=== PATIENT | female | born 1995 | race Caucasian/White ===

== ENCOUNTER 2023-11-06 13:01 | Outpatient (OUT) | payer OTHER, SELFPAY ==
--- NOTE | 2023-11-06 13:07 | US_ITS ---
[address] [address] Patient Name: ADONAY GENAO MRN: [id number] date: 1995 Sex: F Assigned Patient Location: US Current Patient Location: Accession/Order Number: [id number] Exam Date: 11/06/2023 13:08 Report Date: 11/07/2023 07:38 At the request of: EARL NDIAYE Procedure: US OB transvaginal EXAMINATION: US OB transvaginal HISTORY: MISSED MENSES COMPARISON: No relevant comparison available. FINDINGS: Chang intrauterine gestation Gestational sac: 3.66 cm, weeks 6 days CRL: 2.06 cm, 8 weeks 5 days Yolk sac: 4.1 mm Heart rate: 169 bpm Cervix: Closed, 3.6 cm The ovaries are normal. The uterus is normal, anteverted, anteflexed Clinical age: 9 weeks 1 day Clinical RICH: 06/09/2024 Ultrasound age: 8 weeks 5 days Ultrasound RICH: 06/12/2024 US/US OB transvaginal IMPRESSION: Viable chang intrauterine gestation measuring 8 weeks 5 days Electronically authenticated by: MALIKA WILKINS Date: 11/07/2023 07:38
== END 2023-11-06 13:02 | disposition home or self-care (01) ==
PROVIDERS: Visit Provider Obstetrics & Gynecology
DX: Z34.91 Encounter for supervision of normal pregnancy, unspecified, first trimester (principal); Z3A.08 8 weeks gestation of pregnancy; N92.6 Irregular menstruation, unspecified
CPT/HCPCS: 76817

== ENCOUNTER 2023-11-12 13:10 | Outpatient (OUT) | payer OTHER, SELFPAY ==
[2023-11-12 14:04] LABS: Estimated Average Glucose 114 mg/dL; Glycohemoglobin A1C 5.6 % (4.5-6.2)
[2023-11-12 14:11] LABS: Thyroid Stimulating Hormone <0.007 uIU/mL (0.358-3.740)
[2023-11-12 14:22] LABS: Basophils Percent Auto 0.2 % (0.2-2.0); Eosinophils Absolute Auto 0.1 10^3/uL (0.0-0.7); Eosinophils Percent Auto 0.6 % (0.9-7.0); Hematocrit 36.2 % (36.0-48.0); Hemoglobin 12.2 g/dL (12.0-16.0); Immature Granulocytes Abs Auto 0.04 10^3/uL (0.00-0.03); Immature Granulocytes Pct Auto 0.3 % (0.0-0.5); Lymphocytes Absolute Auto 2.1 10^3/uL (1.2-3.8); Lymphocytes Percent Auto 17.3 % (20.5-60.0); Mean Corpuscular HGB Conc 33.7 g/dL (29.9-35.2); Mean Corpuscular Hemoglobin 28.6 pg (26.7-34.0); Mean Platelet Volume 10.1 fL (9.5-13.5); Monocytes Absolute Auto 0.9 10^3/uL (0.3-0.8); Monocytes Percent Auto 7.2 % (1.7-12.0); Neutrophils Percent Auto 74.4 % (43.0-75.0); Platelet Count 369 10^3/uL (150-450); Red Blood Count 4.26 10^6/uL (4.20-5.40); Red Cell Distribution Width 12.3 % (11.0-15.0); White Blood Count 12.2 10^3/uL (4.0-11.0)
[2023-11-13 06:09] LABS: HBsAg Screen Negative (Negative); HCV Ab Non Reactive (Non Reactive); HIV Ab/p24 Ag Screen Non Reactive (Non Reactive); Rubella Antibodies, IgG 1.42 index (Immune >0.99)
[2023-11-13 11:10] LABS: Rapid Plasma Reagin, Quant Non Reactive titer (NonRea<1:1)
== END 2023-11-12 13:11 | disposition home or self-care (01) ==
LOC: LAB 13:12
PROVIDERS: Visit Provider Obstetrics & Gynecology
DX: Z36.0 Encounter for antenatal screening for chromosomal anomalies (principal); N92.6 Irregular menstruation, unspecified
CPT/HCPCS: 36415; 83036; 84443; 85025; 86592; 86762; 86803; 86850; 86900; 86901; 87086; 87340; 87389

== ENCOUNTER 2023-11-18 12:02 | Outpatient (OUT) | payer OTHER, SELFPAY ==
[2023-11-18 12:52] LABS: Thyroid Stimulating Hormone <0.007 uIU/mL (0.358-3.740)
[2023-11-18 13:12] LABS: Free T4 1.03 ng/dL (0.76-1.46)
== END 2023-11-18 12:03 | disposition home or self-care (01) ==
LOC: LAB 12:04
PROVIDERS: Visit Provider Obstetrics & Gynecology
DX: R79.89 Other specified abnormal findings of blood chemistry (principal)
CPT/HCPCS: 36415; 84439; 84443

== ENCOUNTER 2023-12-17 08:47 | Outpatient (OUT) | payer OTHER, SELFPAY ==
--- OUTSIDE RECORDS SUMMARY | 2023-12-17 08:54 | XMS_ITS | CCD ---
Author Name Unknown Address [address] [place] [address] Organization [facility] Care Team Providers Care Marketing Analyst Name Role Phone Shanna Daniel Primary Care Physician [phone] Carlie Leon Unavailable Unavailable Corbin Henley Primary Care Physician [phone] Devin Pereira Admitting Unavailable Kelli, Devin Collier Attending Unavailable Kelli, Devin Collier Admitting Unavailable Kelli, Devin Collier Attending Unavailable Kelli, Devin Collier Attending Unavailable Kelli, Devin Collier Admitting Unavailable Kelli, Devin Collier Admitting Unavailable Kelli, Devin Collier Attending Unavailable Kelli, Devin Collier Admitting Unavailable Kelli, Devin Collier Attending Unavailable Orzech, Kaelyn Brooks Admitting Unavailable Orzech, Kaelyn Brooks Referring Unavailable Orzech, Kaelyn Brooks Attending Unavailable Orzech, Kaelyn X Admitting Unavailable Orzech, Kaelyn X Referring Unavailable Orzech, Kaelyn Brooks Attending Unavailable Kelli, Devin Collier Admitting Unavailable Kelli, Devin Collier Attending Unavailable Orzech, Kaelyn Brooks Attending Unavailable ZELDAEARL BARAJAS Attending Unavailable Medications Current Medications Medication Drug Class(es) Dates Sig (Normalized) Sig (Original) cimetidine 200 mg oral tablet (6 sources) Histamine-2 Receptor Antagonist Start: 05-28-2022 take 200 mg by mouth four times daily cimetidine 200 mg, Oral, QID, Refills(s) 0 Start Date: 05/28/22 Status: Ordered FLUoxetine 20 mg oral capsule (6 sources) Serotonin Reuptake Inhibitor Start: 05-28-2022 Prozac 20 mg Cap Refills(s) 0 Start Date: 05/28/22 Status: Ordered ibuprofen 600 mg oral tablet (5 sources) Nonsteroidal Anti-inflammatory Drug Start: 05-31-2022 take 1 tablet by mouth every six hours ibuprofen 600 mg Tab 600 mg = 1 tab(s), Oral, q6hr, # 15 tab(s), Refills(s) 0, Pharmacy: [facility], 154.9, cm, 05/29/22 7:54:00 EDT, Height/Length Dosing, 84.5, kg, 05/29/22 7:54:00 EDT, Weight Dosing Start Date: 05/31/22 Status: Ordered Multivitamins with Vitamin B Complex, Vitamin C, Minerals and L-Methylfolate oral capsule (6 sources) Start: 05-28-2022 Multivitamins with Vitamin B Complex, Vitamin C, Minerals and L-Methylfolate oral capsule 1 cap(s), Oral, Daily, 30 cap(s), Refill(s) 0 Start Date: 05/28/22 Status: Ordered Completed/Discontinued Medications Medication Drug Class(es) Dates Sig (Normalized) Sig (Original) naproxen 500 mg oral tablet (2 sources) Nonsteroidal Anti-inflammatory Drug Start: 04-25-2020 take 1 tablet by mouth twice daily naproxen 500 mg Tab 500 mg = 1 tab(s), Oral, BID, Take one tab by mouth two times a day, # 14 tab(s), Refills(s) 0, Pharmacy: [facility], 155, cm, 04/25/20 17:23:00 EDT, Height/Length Measured, 56, kg, 04/25/20 17:23:00 EDT, Weight Measured Start Date: 04/25/20 Status: Ordered Problems Active Problems Problem Classification Problem Date Documented Date Episodic/Chronic Anxiety disorders (5 sources) Anxiety 05-29-2022 Chronic Mood disorders (5 sources) Depressive disorder 05-29-2022 Chronic Other and delivery including normal (1 source) Delivery normal; Translations: [Encounter for full-term uncomplicated delivery] Onset: 05-31-2022 Episodic Past or Other Problems Problem Classification Problem Date Documented Da te Episodic/Chronic Fetopelvic disproportion; obstruction (2 sources) Obstructed labor due to shoulder dystocia; Translations: [Obstructed labor due to shoulder dystocia] Onset: 05-29-2022 Episodic Unclassified (7 sources) Onset: 08-25-2021 Resolved: 05-30-2022 02-26-2022 Results Test Name Value Interpretation Reference Range Facility Coding Summary.on 12-24-2022 Coding Summary. [id number] Gh0bWw+PGhlYWQ+PE1FV GEvH81puBIfuS4OL4kQE V6IGWCRDCJEGG2DHI6tz TU1THrvT6OckqAe OfjljQQxBO57XUn4HKA9 sVkdIEescO0hxJZbM8h8 YfHdYI39hH53BVpwKCOo TpS7EzFolkawpEDx F8qwYqDrpYHwOwp+PHRh YmxlIHdpZHRoPScxMDAl XbQdgXvjOJ1mPa9jNITp LWNvbGxhcHNlOiBj x9caSAToSLtiXA2nxXgi P5SojIX7ACUks3n5Dl10 dHI+YRImIHI8mPncGWuz g133NhDlz7fcVKE2 aWPdRNdlCBB8M53qv7Z0 HHLqERIwSER2qAU0xO1h yWmlrrfxP5IfjZMkSqO5 XRE5gSVqiX8orVwx rvelmT9kRps+N54HYX6G WHGBSS1TFac7M8GjIorg dHI+PU39XRWjVL89oYPo iNSuy0armNx1MuQk TZRxAQE1xIxbSLclw3Lv JTEcU13piGGkr0R3RZGv qJiqaPVrTqIedBO0rV1s XHcbfizaw9lsqhhm Gkbot6fcwc19zJ38D07g SMhhOABcKTL4PZNyEENb rHqitx9eqE7kMz0+IDxj i3gzp3zkgHt1AjBw ZVWujkHteItqSHB6l3Nw Kj92F5NbnTijr7CwWgq9 gp37gWVoi5H0mNG7YNvl YBJmlG6mKJmvRaM0 WYBxXnMvwW83sHPvMJcc Fh6ucKvfhStpIF3iTSUf jgepVHEfaF8cGRTeqTWf kZvbZV1aSIRvinal u791UjBtTWA6NSDubKDe I7KooG2hVrDjTQTlFFHs I0UydUYuPInaA293LXjx KlQ7HXZlqdRfT6Lr JKUpxWsrMvS3m6R5Sb7M u2RjlfvjGMM2ZCqnESRp YqLgAtLhXyX4D1CyYxf7 AIHecYykTD2kN0Nq ZCPslqmgeydkeWF3ETCg HOSkdE02uURlJRhhDr0l r2M3k649UUCgLPCwfN44 Sy4piOiuWDRhsNAH iU3zctmmp0velwoeSyQv TLKrWQy8DYv6JWOojHrp HgXrNNG6RcA4WEL1cMRb vQ3zkBsgjwpjwU2r Oyc+B36tkF0tSMM8TZZ5 ohxdDSRxqcNeLV28IB48 N3MwZynbeOEulKQ+PGRp vlWadPwuZI0lWvHz f7xeq0BnJCqcL3IzTKOu RVbcUel2RJMlEVG4gSD2 aA5hLFBjTWmbe4E1sUU5 J6NwzxAuin3os3bt OHOpLXueP30swKEmf6D3 BPHxyLJ6FTGeeBuhNrEm aJ36Kxe+CRKnwHpdc9Ut Qffex1ylo2vjwNa8 IjMwJSIgdmFsaWduPSJ0 b5LlJx97B07uWRqjDWFz ONGxUDGcTEFivFqbqa3d mC7eHp5+PGNvbCB3 vID8wQ5wKRIvEtD5GEst E001HfOwqYOiJiwap9my f7mspOy0JuBqQXUhiqZo gTouGRH0u3XaOj47 Z26bPOyuODEdARIcJGOz MUEfdBbphm4oeL7gGb1+ WM7pw6nvgj99oF43hZB+ PULsQMA8vCyzTXrq PQMubA7fMVbsGyU4AXLm WbHkqZ18sWPeOMqfKp9g nIyjwJfoMD3vCGRntuhf g309GqWar0pwNWTj yYRiQYqcHJO1A78cc0G7 WSEtZAXlZRM3zSA0tV4j bGlnbjogbGVmdDsgdmVy nXrjYOceISduY903 IHRvcDsnPlBhdGllbnQg NkExRBm8S4KdKxu4MFYs nGggFO5btDBxEXhnKk0c oJjcgPxcOF2tQEIo evypx434DkZbt7juQKMa sNJmEKklKDM4Y99py3Q4 FFFdKUTdRYW1rXZ5hG2e bGlnbjogbGVmdDsg pmQumDdyFAtlTYlsI206 IHRvcDsnPkJpcnRoIERh yYD0QV34YR53dLQnv0I0 lVK2H6StFDOyohls iycyqWL6MSOcTTAwoC51 Ed8obMjrXu8vDMMoZBJ3 DLAcpVWkY7LddD7tIkEr JZGoCTJeF2WslYLb RKmiU014PZxqHeU8RLKw xgSuY1WzZVJnrJehAxT2 c1U2Us1TL1A0XU93VP22 hCAud3Z1fBT9R2Hj HFJwqpkexbnstQA7QFRc UYIjlR33If4kkWmsSu3j OFJpSJO9KUYffKMxM0By wM9nFdPtMZUdFWTw U2VwaKOeVBqbF472ALwj ImT1VGAfviWrJ2UuCUZl bHgfUxL4w3M5Tf7PDZo0 JG02QI74cZXei6R6 wGA2I8NoBIIezrlookvk aZL5MDNtUDLkeU13Fw3l pGyjVw3jZXUpMQP4IQCx iJAoP1EdzN5eIsCl VZDfALKgN9CfgFJdQRgn Z369DKtgSgJ1SSSkqiZy Z5BdYNDnlKfrTaG5r4W8 Oi5XFJSyOE63ZWN6 vFF7YI69DZ83U6LgLvlb dGFibGU+PHRhYmxlIHdp ZHRoPScxMDAlJyBzdHls NL3zKi2vNWLpOPWj gNrjqNGeNoJsg9bkZOKm ETznVK5pyOgsI9JcyXN4 HBBwi3d4Iy87E45tG3Wv dXA+PSJjvVW9uBL9 rS1gBwEwRgX6KQzjG962 YeZvsQAyCjnpo2dmz8bm dLx9ObD5RHBevtUxsErj AOE4g8YySr35B98n IHdpZHRoPSIxNSUiIHZh hSxilc8brD6fRa2+PGNv lXJ5tLU0hV3yUtSvTzQ0 HJfiZ560BgOwbEFl Qvuor7pzq6eupNg8YpCh NHQwpyHhzKsxTNB4y0Xm Dc20N3RedTbpz9YnLnz7 yq12bURco7D4bEM3 P6GbCFGrfkooeKBjsOxp BZ9vNNDhipaxKCMvpF6f NPNvI4d9TgXoXlZ1HHar U7HanmC2OPMprLLc BEtyCXY9Y93kq0D1RIKi FUKoCEN4xQB1xM0qxHnp bjogbGVmdDsgdmVydGlj GQdeWOasQ943CCNi wRcmNRQnpU8xYQSxsSAy vXfoRY7bYRAvyeopMdMO Nu2LAcmuI8EJXFMYLBUv TTwvdGQ+PHRkIHN0 cTuuREkvNSHiwZ6bRJEt N5r3LzIbGzS8ZDwkO2Pw CYGofzvxYa85jC2sZmLf JzS5CTnvZ4PsxgM5 MGLwwEQcYRaaMJL1R14m d8O3UXVlUQBlNQR1kLU5 zP9udZtklltjpFYgoSfe dmVydGljYWwtYWxp E673PZNslDlcTkRqNpC6 SaF3XUh3O3PsMhd7KSEh mBeaRF8skLWcFTbhVc4t jKasfOadJH7nOCXt rvpfFLDppU9aRQCokNCx zZvuIJ9rJZLzuutjz475 YtWoGQJ9VDAwcDEgU7Rw jR0bQwQzPGKwVYXa Z1DwePBmFJleG178EWpa ScN6YFNpknUpK8McPZXr xUaqGaM2p6J8El6sFEBG ZWFyczwvdGQ+PHRk XNR0jUiaFUvnLUDouJ7f XUYfY5p2HpSoVeV7VXvo O8RqVSPzpfiwRk71nJ0l XvOpPzB6SJbpY7Tl eoK7KWLjvZXwNJmrVTV1 V14en2T8YSYjHPXhRSK3 xBO7wC3qwUxcqjwtnCZb dDsgdmVydGljYWwt FSzpO224OSTmpIaqKxMv bWFsZTwvdGQ+PHRkIHN0 rQxhCFmpSKUnkR7yGXKa L4u8UbKlEyH1FIyz S4UvXHCztbisVr83hY3j FsHtUnW3DVssX5QihfD0 NIZwgRCgJNzyFAK9Q91s q8A4IEMmPFArQCV9 vCS8tG0yxPjzzzylwZVf dDsgdmVydGljYWwtYWxp N277HAPhrQcfEc55oLGo fOkfhcX2S5DpQlnz dHI+AJ31ESTaII63aHUd gZTji1qwwYx6EvNkFRBc ZAB9fJekPTduh6EwJHNe K14brGVxk1M1XQTj oWuyiOCfMsCukRW7nQ0b KXxgztfea0vcdtwyGbgo k5aopf42aG22Y09eMZeu ZHRoPSIzMCUiIHZh gBwblr5htA8xNw2+PGNv pRD4gDM2pQ5pEkTiEfI7 UXnmP605BkRenIVyVxhj r7isf1ikaTj1YkRg DGQwpdKfjZdbQAD7l1Bf Ik95I35hFTikDGLqKYQc EWVyBXYixYajnh1mpL8m Ii8+FO1bq4wmdt47 pJ18bVY+UFOqTXZ6qBbz GOswGFEdfB7pCClnPkG8 MNGfBwSmzU78oXBnSOge Gy6sbXuecUqnPE6g GENzbxqfi363AmIyv4cy CFAmpGLtDMkfTDV2P73y p7M8IXGgGTAvGJT4aUG2 zF2jxCqfpiqugMKv dDsgdmVydGljYWwtYWxp B303UCVdaXhlFgFovPBs Z1rnohYOHN9uPhqajCE+ XALuGXP8xVlnFVka SDWybK5gLCQwT3y3EaMl JaX6DYjoZ6JifzV3ZNHj dHWpXBCdhZZVoZ8rialt q3hhacihZqXtBFWn GEz3YIm5RBBctQodZaWg HET4PfD0UDW1gDEewK5b kCuiswlonU7kXbe+RklO OjwvdGQ+PHRkIHN0 cLniDHuyBCYafH3mBGJy E9g6AuXmOpY2TXviY6Jk ggY8SXMqfXKtFAMgtSMU bZ3zllbrs7wgfzof HtWoBMJvWXi2LMc6UXAy jBglMeSpRMW1LmM2WXZ6 qPUduW4ieMlvbyionQ1w Oyc+TVJOOjwvdGQ+ CCIfUBG0aOxrNXxbXOGc qY7sJYDlL7x6CcQoCbJ8 QZamV1BqmsF2RGMbzDLb WTIirEJMzQ1rwxcj y6zytfwsPrUbAUCvQBr1 GZm4ACDavRihPiFwIKT6 NpU1VDL4hZEzmL4gmJbz mlnwzN2pNjw+UGF5 KCS6GJ39ZA53Q3RqNjny dGFibGU+PHRhYmxlIHdp ZHRoPScxMDAlJyBzdHls EN1nSx0tKQXjOCVl bGxh (more content not included)... Normal [facility] Consent for Treatmenton 11-25 Consent for Treatment [id number] #1.00CD:127 [facility] US Abdomen, Limitedon 2022 US Abdomen, Limited Exam Date/Time: 12/18/2022 08:13 EST Reason for Exam: R10.11;Abdominal pain Report IMPRESSION: NEGATIVE RIGHT UPPER QUADRANT ULTRASOUND WITHOUT EVIDENCE OF CHOLELITHIASIS. EXAM: Limited abdominal ultrasound INDICATION:Right upper quadrant pain Abdominal pain, R10.11 TECHNIQUE: Juárez-scale evaluation of the right upper quadrant was performed. COMPARISON: None available. FINDINGS: Liver: Hepatic echogenicity is within normal limits without intrahepatic biliary dilatation. There are no focal hepatic lesions.. Gallbladder: The gallbladder was normally distended without stones, sludge, or wall thickening. The common duct measures up to 5 mm. Pancreas: The pancreas was partially visualized, and the visualized portion was within normal limits. FINAL REPORT Dictated: 12/18/2022 10:44 am Daniel Meier MD Signed (Electronic Signature): 12/18/2022 10:44 am Signed by: Daniel Meier MD Transcribed by: STEPHANIE Technologist: HW [facility] Consent for Treatmenton 11-24 Consent for Treatment [id number] #1.00CD:127 [facility] Family Medicine Office/Clini c Noteon 11-29-2022 Family Medicine Office/Clinic Note Chief Complaint EST right side pain, nausea, vomiting HPI Staff Pt 26 yo female presents with sharp right side pain, nausea, vomiting Onset- yesterday Pain- 4-5/10 Radiates- from just below ribs to right side Characteristics- sharp pain constant for last 2 hrs, bloated Pt is having nausea, tolerating liquids vomiting - 1 episode yesterday Last BM today - loose, typical over the last 3 days LMP - currently nursing 6 month old aggravating factors - none relieving factors - none no fevers Treatment- gas-x History of Present Illness I have reviewed and verified the staff HPI to be accurate for this encounter. Review of Systems PHQ Score Initial Depression Screen Score: 0 Physical Exam Vitals & Measurements T: 36.6 ?C(Oral) HR: 99(Peripheral) BP: 116/76 SpO2: 98% HT: 61 in HT: 154.9 cm WT: 83.5 kg WT: 183.7 lb BMI: 34.8 General: _Pleasant, obese female in no acute distress. Mouth: _Mucous membranes moist, tongue normal. Neck: no adenopathy Lungs: clear to auscultation throughout, no wheezing, no rales. No respiratory distress Cardio: regular rate and rhythm, no murmur Abdomen: Patient is able to lay flat. Abdomen is soft, round, nondistended. Bowel sounds are normoactive x4 quadrants. There is mild tenderness to palpation of the right upper quadrant. No guarding, grimacing, or rebound tenderness. Mental Status: Alert and oriented x3. Normal mood and affect Assessment/Plan 1. Right upper quadrant pain (R10.11: Right upper quadrant pain) Overall, patient is stable on exam. No evidence of acute intra-abdominal disease process at this time. Discussed with patient that history and exam may be consistent with gallbladder pain. However, given stable condition, recommend monitoring and following up outpatient. May benefit from GI referral in the future.. Will order ultrasound of the right upper quadrant, will call with results. Discussed proper diet, avoiding fatty or spicy foods. May use Tylenol/ibuprofen for discomfort. Seek medical attention immediately for any severe abdominal pain, inability to tolerate oral liquids, fevers. Patient verbalized understanding treatment plan. Ordered: US Abdomen, Limited 2. BMI 34.0-34.9,adult (Z68.34: Body mass index [BMI] 34.0-34.9, adult) The standard range for ages 18 and older is >=18.5 and < 25 kg/m2. Your BMI today was above this range, this falls in the overweight to obese category and there are medical benefits to weight loss. We can offer counselling, referral, and/or medical support in addressing this problem. Your BMI and weight management will be followed at subsequent visits. Ordered: Body Mass Index (BMI) documented 3008F Follow-up With When Contact Information Shanna Daniel DO C, [address], [address] [place] [address]- Additional Instructions: Patient Education Cholecystitis BMI for Adults Problem List/Past Medical History Ongoing No qualifying data Historical Anxiety Depression Medications cimetidine, 200 mg, Oral, QID, Not taking ibuprofen 600 mg Tab, 600 mg= 1 tab(s), Oral, q6hr, Not taking Multivitamins with Vitamin B Complex, Vitamin C, Minerals and L-Methylfolate oral capsule, 1 cap(s), Oral, Daily, Not taking Prozac 20 mg Cap, Not taking Allergies No Known Allergies Social History Alcohol - Denies Alcohol Use, 04/25/2020 Employment/School Employed, Work/School description: [employer]. Highest education level: University degree(s)., 05/29/2022 Home/Environment Lives with Significant other. Living situation: Home/Independent. Alcohol abuse in household: No. Substance abuse in household: No. Smoker in household: No. Feels unsafe at home: No. Family/Friends available for support: Yes. Concern for family members at home: No. Major illness in household: No., 05/29/2022 Substance Abuse - Denies Substance Abuse, 04/25/2020 Tobacco - Denies Tobacco Use, 04/25/2020 Never (less than 100 in lifetime) Tobacco Use:. Never Smokeless Tobacco Use:., 11/28/2022 Family History Family history is negative Immunizations Vaccine Date Status Comments influenza virus vaccine, inactivated - Not Given Postpone due to refusal SARS-CoV-2 mRNA (tozinameran 5y-11y) vac - Not Given Postpone due to refusal hepatitis A pediatric vaccine 01/18/2013 Recorded diphtheria/pertussis , acel/tetanus adult 09/12/2010 Recorded meningococcal conjugate vaccine 09/12/2010 Recorded poliovirus vaccine, inactivated 02/23/2003 Recorded measles/mumps/rubell a virus vaccine 02/23/2003 Recorded DTaP, unspecified formulation 02/23/2003 Recorded hepatitis B pediatric vaccine 06/27/1999 Recorded Date correction Normal [facility] Comment on above: Result Comment: Elec tronically Signed By: TAISHA Rodriguez APRN, Kaelyn Brooks\.suresh\Date and Time Signed: 11/29/22 14:43 EST Patient Educationon 11-29-19 Patient Education Gastroenterology Cholecystitis Cholecystitis is inflammation of the gallbladder. It is often called a gallbladder attack. The gallbladder is a pear-shaped organ that lies beneath the liver on the right side of the body. The gallbladder stores bile, which is a fluid that helps the body digest fats. If bile builds up in your gallbladder, your gallbladder becomes inflamed. This condition may occur suddenly. Cholecystitis is a serious condition and requires treatment. What are the causes? The most common cause of this condition is gallstones. Gallstones can block the tube (duct) that carries bile out of your gallbladder. This causes bile to build up. Other causes include: ? Damage to the gallbladder due to a decrease in blood flow. ? Infections in the bile ducts. ? Scars or kinks in the bile ducts. ? Tumors in the liver, pancreas, or gallbladder. What increases the risk? You are more likely to develop this condition if: ? You have sickle cell disease. ? You take control pills or use estrogen. ? You have alcoholic liver disease. ? You have liver cirrhosis. ? You have your nutrition delivered through a vein (parenteral nutrition). ? You are critically ill. ? You do not eat or drink for a long time. This is also called fasting. ? You are obese. ? You lose weight too fast. ? You are . ? You have high levels of fat (triglycerides) in the blood. ? You have pancreatitis. What are the signs or symptoms? Symptoms of this condition include: ? Pain in the abdomen, especially in the upper right area of the abdomen. ? Tenderness or bloating in the abdomen. ? Nausea. ? Vomiting. ? Fever. ? Chills. How is this diagnosed? This condition is diagnosed with a medical history and physical exam. You may also have other tests, including: ? Imaging tests, such as: ? An ultrasound of the gallbladder. ? A CT scan of the abdomen. ? A gallbladder nuclear scan (HIDA scan). This scan allows your health care provider to see the bile moving from your liver to your gallbladder and on to your small intestine. ? MRI. ? Blood tests, such as: ? A complete blood count. The white blood cell count may be higher than normal. ? Liver function tests. Certain types of gallstones cause some results to be higher than normal. How is this treated? Treatment may include: ? Surgery to remove your gallbladder (cholecystectomy). ? Antibiotic medicine, usually through an IV. ? Fasting for a certain amount of time. ? Giving IV fluids. ? Medicine to treat pain or vomiting. Follow these instructions at home: ? If you had surgery, follow instructions from your health care provider about home care after the procedure. Medicines ? Take dayb-ame-cyzoqnr and prescription medicines only as told by your health care provider. ? If you were prescribed an antibiotic medicine, take it as told by your health care provider. Do not stop taking the antibiotic even if you start to feel better. General instructions ? Follow instructions from your health care provider about what to eat or drink. When you are allowed to eat, avoid eating or drinking anything that triggers your symptoms. ? Do not lift anything that is heavier than 10 lb (4.5 kg), or the limit that you are told, until your health care provider says that it is safe. ? Do not use any products that contain nicotine or tobacco, such as cigarettes and e-cigarettes. If you need help quitting, ask your health care provider. ? Keep all follow-up visits as told by your health care provider. This is important. Contact a health care provider if: ? Your pain is not controlled with medicine. ? You have a fever. Get help right away if: ? Your pain moves to another part of your abdomen or to your back. ? You continue to have symptoms or you develop new symptoms even with treatment. Summary ? Cholecystitis is inflammation of the gallbladder. ? The most common cause of this condition is gallstones. Gallstones can block the tube (duct) that carries bile out of your gallbladder. ? Common symptoms are pain in the abdomen, nausea, vomiting, fever, and chills. ? This condition is treated with surgery to remove the gallbladder, medicines, fasting, and IV fluids. ? Follow your health care provider's instructions for eating and drinking. Avoid eating anything that triggers your symptoms. This information is not intended to replace advice given to you by your health care provider. Make sure you discuss any questions you have with your health care provider. Document Released: 11/10/2006 Document Revised: 03/19/2019 Document Reviewed: 03/19/2019 [employer] Patient Education ? 2019 [employer]. Nutrition BMI for Adults Body mass index (BMI) is a number that is calculated from a person's weight and height. BMI may help to estimate how (more content not included)... Normal [facility] Coding Summary.on 07-17-2022 Coding Summary. [id number] Gh0bWw+PGhlYWQ+PE1FV OEeB02bkABktC5EV4uNJ T7UDMURJODPLJ7UDT0vi AQ9MRluQ8GdgjIc JiatrZUcTY22UNx5ZKZ4 aQvjPCuvwZ0gvTKsF0t3 RoRvZP80xZ45TTkyYRKz PwJ8CrTxkzbhfGZw E7rwMjKooOYaCnp+PHRh YmxlIHdpZHRoPScxMDAl WaWaxOkaAZ6iEm0xCCDu LWNvbGxhcHNlOiBj v8gpHZMuBKctPQ4tvVfh W9CwcFC9XKZeu8a4Xw77 dHI+DTRhXFF4kRshCJob t080KpOps5qkBXX6 dZMfOPkoNWA8V59br3W9 VUGuFTBsRMA7mMO9oR6x xAggxuetL5GuyRJdVlH1 GBQ1uENaxK5tfJxa uxutgC3pTve+G59QDN5Y PBPBEQ9ATlr1B8LrTzyh dHI+UN11VEGpKK51wBOh nPFhp9sxcSt0BqLp FRMjECU0sPtfZDbkf9Vv FJPuT88wgZSif0O2UANc bGbcnQZuNnKbjWY4wQ9e NYpbgxaid2itvroi Zhlbv6iygu78pZ94U91j EAheHSWaZXK3ZARtVHTd eAfibi0ysC8pPz2+IDxj t9bzq9ilpDo6ZtBb WSXlyqNkiJpjEDB4l6Xr Yg05T8XjaYzfu1UhLod1 wd41oJKil0V2zBE6SUrr QJXdhX8eYUnkEaJ3 EOVeTvDgwE09kWTxKBse Wi1nmXrgbThyUT5tRMAj vdecALQdhL8kKXRjiWLj wYwgMX5mWRCxsvgu b573JnMbVND3WOHymXUq R9JxlX9eUlPjULVvVORe Z5QgvZZkKXboN060COxx DeA3KIZbakRzG4Lb XMMrqVmfZiQ7i7Z8Be7Q j7VdyacaRSL5SNerSVN2 YyH8YxIvSuX6Y3HtBvn0 VVFvxEfuRF0vJ0Re NWBjfmwakolabIS6BJWc PATewC17kFNgLLeoEx7z x7A6p509SMKnDGKctR18 Yt6oxBqxOKNorGXP zZ7grmgph5uhwemcWsOb JMTeESx7YVu8DVPihSlf ZyRwMXH5PhD3HKO4xJZb rL2jdNkdqusvtY0a Oyc+K64dlF1oXCG9DXL2 vrshLHSdxtAiKX11SO66 O3ImMitcfGXosNT+PGRp uzSlmStnMR6xWtEb o7twp3KpZBfhD7KdWIRr ECucGst9EZHaIPF1qUQ3 xN1kXEYiTNgpu8Q7zJT5 F1FbfuJfru3am9fe MIYmZQnpP10wpSSkc5Y5 ITAdbVF6UJZrdEzeYxMm kH73Lak+WWQwgSnhz4Dq Pkxfk4nhy4zssMq4 IjMwJSIgdmFsaWduPSJ0 i1ExRm40D83aGJpyPGCf ZRNbPLIeGVJxeIcosc3i cR8hFv1+PGNvbCB3 xRJ0oM7aPZMaPoJ0WLor R647MiGclMLtKiauy2nt c0ayzJw4GsZbOPYondWq fWkdRKT6d0MgNb20 Q28tWOgrZVQaWLZzGBCx UIFqiXyoim1waP2sKy4+ QE3nr1usib93tG62cNP+ ACCcGKV1zLswRHzj BEWseV0yJOksLdE6AWMd JgJqqN67uMTrDVogLj8y hOolcAasUT0rGZJaevto w580PjPcf7gkLATo cHJpKAaeUYW0I81mp2B2 LTKaIFGrHGY5oJF7sL8b bGlnbjogbGVmdDsgdmVy jOurXFwoDMtgH471 IHRvcDsnPlBhdGllbnQg ChAkCHh3K3TqDea9WGDt jCmpMT8yuDEaHVlsWj0w sMkjcSfsEM5pUITf mioqh485XjVjn6qzDVBm lFReQYrbSAJ5K44rx7R4 UQTwJOWxAPL4hYW7gK4b bGlnbjogbGVmdDsg slCkxYcoEMjxMMzhS235 IHRvcDsnPkJpcnRoIERh pCW8CO57CA00lCRep3E2 rDS8S8QcDCPyopkd qdlyzPR6PMXuOSDmwV25 Fi8hcIehUg9bRSIjANS2 FBHhbFFnH6QseK0rMhTy ZDDdUDEsH1EzhICu HRhlC054MTazTsE0ZMAv nyOhZ8ZvREQrdQlzGlB3 t7G6Fu0JG9X6SA72XS00 lNKji5G3rRY0K6Ml GPJvgvqwcpsjiYJ2KJMf DVStvN09Xn2awYpsVn6l DBEiIJV2RBIsjWAdZ3Ap gJ9iNpHpLUCeSWFp E3PydQDdOTpvA859SFro JrB8VHCjnxGnG0TjTIUj cPrpKuY2v2M1Kh8LLDl3 BG20IY00zSKnx0B8 rES0W0UyLYOrnvwiodsj vPF7AOKyHHLavU63Pz9y fGqcCz4aXQJeOIB3GMKy eNMgP7RxqR0tVjQz KMKfEVRmZ8EprKCcZWyf D815FTxoDkO1MDAeoeVm U4DgZPYvfUkiQmW5d8Y7 Pp7OMBVzIC13YTG1 eYE7QV91ZA66D3NeKrau dGFibGU+PHRhYmxlIHdp ZHRoPScxMDAlJyBzdHls OM7gFm9tAGCqVWPi vBmfnZEeOjUxs0hnYBZk EAvsNV2kfUhfO0OgiRB1 LJBtj9r6Vt83V89wZ5Rs dXA+CLWjtSA8iXG9 lS9eXqClRgZ6QBlmJ806 ZrQyoRHtEjdzy2cdz6cl fKl2DkM3GCHqkzArjNof FFD4o6ZaXe60O94z IHdpZHRoPSIxNSUiIHZh jRwgwj5akI7vIf7+PGNv jRC2vBD1rF5iJwRaIyX0 MSpbD160PjLocRBe Emaij1jqc2amqAd1KhFo TMCrfhGflDezCKR0d0Ux Cr35G3StjBgog5PcWnj2 re52kRCiw1N5tGM3 A9MlQJMlqhgsiQUfhEhh EW7xHQQakimgNSYfrH4b JFBkJ5t5VdRxEeP2OQzh Z8QfdoK4OZUldLCb SGroELZ1H38ki9P9VYFy XDNdZVQ6fXK5dQ6ujZqj bjogbGVmdDsgdmVydGlj CBkdWSsoH008SCFp zHvfJHSfiE2sUHDejWQt wLmoEE1iGCFdckmkOfSU Bs2SDftdB7BAUDKINIFw TTwvdGQ+PHRkIHN0 dRfoRPweUZGfcI2sKOSv J5l6AqNaAfO6SXgjU1Dp UEQabdodOl27rD4xLwLp XfA2YEvtY4AdlaW1 UHExvYFvSQsaKQA1L47c r4V4EOLpTYAoEXS1pTM8 uY7fxWjyvyowbLSxjWam dmVydGljYWwtYWxp J245YRMsdRxbLoZqKpJ8 SbG6VHi5L0MeCyd1DTEi xPkuFW0frLPlWZgtLo2y nDxruPcuZX5vKBDv vlklYAGokZ3uTLFloEVr tHnqOH6mEZFadhscp310 VkSpXYO2VEQidBNsR9Zu yK8zSkJrBVKhHDCa Y5XktOHvHJskR448PJrn ExM3JTZpcrYpO6ChXBNg vGpwYoJ9d1G3Rv0nCLCS ZWFyczwvdGQ+PHRk EHR8mNblEZioQUMoxE8y LEObF8l4ZsSoSaY5VOlz L6CqWUPvqoqxDf20jD9y OeXbMhM7KHibY0Bk vtK6IEEcpWFyAXekMYC7 W33zz2M0FLDmFLQrEAD9 dUG6dE1xsNbenqxhuYSm dDsgdmVydGljYWwt XQfqP980LSVezVnkUfSb bWFsZTwvdGQ+PHRkIHN0 pVfsQBueNMFhhB3wKAWj R4p6HcNqRwW7AUsf Z5HjEEXjdbkzHd98mM9o RcAwMsY0PGgfW8TqniP0 IGIaaJCxOLofJWD2N70q o7D2XTRiRKZhTLQ1 mVG6vW0ofVgpxmnciSAw dDsgdmVydGljYWwtYWxp G012SVMpzJzuJircIyOP oa6eKF1kImszjWX+ PQ02ve67S5VaVyolZsf8 XMVhCWB0zBD5aG2fMXLx UJipj9R0bVH7O3MgfhQx kz5dv7uvEHTtWLef P56fiFRwb3Z4OFXsqRY6 ZFGqaGbdEjBzwR52Wrn+ FNXsmZzyf3LbQrkod1ci c2ajsQi6KcTwBHMe rgLnyLxtIJM3e8GiRh77 Y60wYRapNSHbYVMyFDYa IKCmmPpvdc1cnW9wSy1+ JVSopHX8nNM9xU5n PuWuVxV6HNaxE771XeBe kWCjOkwmk9xhe6aobUz2 IjIwJSIgdmFsaWduPSJ0 r6LgJt96A1YayKox j9OtZax6za88hJVvg6Y3 nSX2Q9NsFSGnxuytoPNv yUryWW5yFRPbksjoVIHx xU6lIOWoA2u3EvWe ZuU6FAeaE2YfnsI8DPDd zSCdNWYhxKPXcU5ziipf c8vbgfogGaZxDYMeLAk9 THe0QCZvxSlzYiTh BPK5XaT7ODM5mUJhrC7o sIkqiozurJ9lFfa+UGh5 p0jxdOYaIV8tyVY1HO11 ZQ77nDJyf6H3dAR1 M0DlHLSeuipfznombFY4 HEZxGGVhxD84Fx4tfJed Dp2eSMHxAJE4JWKhyYIm W7TtbY6oQnCqQQZj JENaO6NakFHcUBaoX239 NMaaJnY3MYZfbdSxM2Th LJEpbUakYwV6b4T3Bw9Q ZT38HC08LP37zVBh b9Z6pAS2O8BrLQSxgfuy apcjsLI0EBLnTDUowZ51 Mz1jdTbxWr8yMWMhPIF4 IQAskXVkC6RsvM8u IsXpIPDjWNAjH6FxxXJw IOzuI872HXbaOpU7MEGf elYtQ3FkNRRydImgOaC9 c4U6It5ZDp52ZE83 CR30xXEsx7U5wIK6I6Er HOVgxdbyccfebQS4XYCq QFUakF75Cn7pgPszXi4v QPXgAOV1MVFadYVc K9RheU0fXvJqXDDpNANs I6DwzVKuJJdjT177SZvn YyQ8XOTlyyDkM8GtOFUr iQkaDdR2v1B3Jw2H NXqkodd7P4NiKjjxqNW+ UE53ZRUrEN43lZUwsOKt x2xwlTi2OvXwVEGaKAK7 sHzbRXnxt5HiPZLj Y29s (more content not included)... Normal [facility] Lab Miscellaneous-LCon 07-17 Lab Miscellaneous COMMENT Invalid Interpretation Code [facility] Comment on above: Result Comment: Test Ordered: [id number] IGP,rfxAptima HPV all,16/18,45 IGP,rfxAptima HPV all,16/18,45 Note WB TESTS RESULT FLAG UNITS REF RANGE LAB Clinician Provided Cytology Information No. of containers..01 ThinPrep Vial DIAGNOSIS: 01 NEGATIVE FOR INTRAEPITHELIAL LESION OR MALIGNANCY. Specimen adequacy: 01 Satisfactory for evaluation. Endocervical and/or squamous metaplastic cells (endocervical component) are present. Performed by: Madie Dong Drafter Chief Design (ASCP) . 01 Note: Note 01 The Pap smear is a screening test designed to aid in the detection of premalignant and malignant conditions of the uterine cervix. It is not a diagnostic procedure and should not be used as the sole means of detecting cervical cancer. Both false-positive and false-negative reports do occur. Test Methodology: Note 01 This liquid based ThinPrep(R) pap test was screened with the use of an image guided system. . 01 The HPV DNA reflex criteria were not met with this specimen result therefore, no HPV testing was performed. FLAG LEGEND: L-Low Normal,H-High Normal,LL-Alert Low,HH-Alert High <-Panic Low,>-Panic High,A-Abnormal,AA-Critical Abnormal Performed at: [facility] [id number] Terri Cantu MD, Performed at: [facility] [address] [id number] MD Pepe Murray Performed By: #### 1 [id number] ####[id number] [place] [address] Lab Miscellaneous-LCon 07-12 Test Code 916827 Invalid Interpretation Code [facility] Comment on above: Result Comment: Test code corrected. 07/12/2022 06:39:13 EDT Performed By: #### 1 [id number] ####[id number] [place] [address] Test Name IG PAP APTIMA H Invalid Interpretation Code [facility] Comment on above: Result Comment: Test code corrected. 07/12/2022 06:39:13 EDT Performed By: #### 1 [id number] ####[id number] [place] [address] Physician Orderon 07-11-2022 Physician Order [id number] 26#1.00CD:127 Normal [facility] Reference Laboratory Testing Ordered By: Klever Peralta on 07-11-2022 Test Code 322734 Invalid Interpretation Code [facility] [place] [facility] Test Name IG PAP APTIMA H Invalid Interpretation Code [facility] [place] [facility] 022 Nursing Assessment [id number] 5#1.00CD:127 Normal [facility] Coding Summary.on 06-03-2022 Coding Summary. CD:[id number]:[id number] Gh0bWw+PGhlYWQ+PE1FV CSvO86tnPQxsT0YR4nZY L5WQZHUQEOEWK5BFG6wg WJ9RMisZ4EmhcEf SajaxQTeWP55MOg1LTC3 jJooLOpusX0vnYSlQ8u8 CgBbXU87vC18HXdeJKZd FsG6TmMsdkvnySOx F1thYlIgqWDxIhp+PHRh YmxlIHdpZHRoPScxMDAl DyRqnIxcYM2lUp1uISDj LWNvbGxhcHNlOiBj t4ggFLLcEJycTY2slBjk Y1DgySY2UJUjx5x3Hx97 dHI+IKKaHUB8eKcjZHoc z543TlSfp5yoQLM6 sXUrPVwdNJZ1F31eg1X2 XYDvOEZkANG7rLG6gI1t hKdpqyncR0AllHYmGtD3 NAL6fRDclY5zyVxc awueeZ6lWaw+L39WYB1W YNFNQF2MHtf8J7QmGzie dHI+BA73TPWlNP68sDOi rILpn5tzcMh1ShVv EWFjVJE4nNycPGxdq9Vr DUBtM15yzOJwe4I6UKMl lUbyvZGrAhFepFG2oE5z OSfwmzbvz8sgxzot Tepxv6xriy93sX60Z15s AEnqPVVqEGR4GPMlVOQe fGwyss6bqG9zJy1+IDxj s9nlg6uwkGe7VtXy PQPzqcOrcOhdABP3q5Ju Yk55F4LzyIwnu6VePoy3 xi49yPYdu1I1tKD9SCka YFWlgC1wWHslFtF7 JXKeUjPfdP33dYThSAaj Fj8acNeuuCmkOG4hQZMo olwqHBGfmR6dJIMucIGo sCfhRM8qEQRdgkuh d027HyJvROB9LRAhyRXr C0GrbF5hLaIgNXCtYICv I5TvcLMrFIqdO991EOke WqH6VJRvtcRkE3Kw EYQyeCkvQpJ6j8L4Zk2B p1YnnthnVSC6ELiwAAL4 RzEaBkNrByM6K9XdQnz4 YZJipByxYF3kN6Mk FHTbodvrkodmsZG8DTLv MQPtkM80yBLvTJwcZl0l s0P5d361PBUkOQZltD50 Ey1qzGjpPYGnsMFZ zK3wjgjin5qlskarNoPv PXByUXi6GTr8IRDvqKzq XtXtLKB2JkW4GMI7zVEi dQ3feBndhgvgyP2v Oyc+X03clN2uNNC3CCD6 aqlmWLUbnrHnHL23YJ30 P4SrCmzstUCjdDK+PGRp nxOdgWeuSA9uSsPp i8scu1NvZPbyS4PrWICt TSoxYyx7EFYhUAH1sAP1 sS7zHIHfHAsnq9B8lXK4 W5XmwwBvdm1qg2wf HPQeAWpuG00mbWFrg4W2 RIGfwDU6OEAxxEqlRgVt eJ38Bef+FDPjnFthj9Vl Tukxt2clh5capXr1 IjMwJSIgdmFsaWduPSJ0 c6YlZz18Q17zXKwoQTBu EUXgAOEpNGPsqGyqde0v dV0dIi3+PGNvbCB3 cPE7eT5sVCGnCkD9RByq G883ChKowBGyUlpla5mz g8zxpRb0AuEdECWuvjLe gKqtKSJ3y7ZqQv63 Q64aTKpfVHXxWJDmASYv NWLgxYtfty8oyL0gIq5+ QL3pz9giiu40jJ65zQB+ BUOzWPJ5nMrqOSir YODrhE0sJDyeNtJ7LAIp FaQgnX61iNGjGEtkPp7e bZfvxWecHE1sZAVvuiss j535UqKnb8dtMWEj iOJgHTebEST7B57gc8Q2 THMnMYMcULB5zAP5gR9d bGlnbjogbGVmdDsgdmVy rEhxFJtlSVwfH685 IHRvcDsnPlBhdGllbnQg NwCbBGs7K8NyFzf3YYBz cUxoTS1ufNKmCXozLv1k pRdosAimMI1sNBEz wforj650BvLfz3kkCPQi xWBeNNmoJFY4B13sb8S3 FLJiYCOsXRQ1zWX0xF2y bGlnbjogbGVmdDsg pgNhlAlkSYjpYNksA116 IHRvcDsnPkJpcnRoIERh uQI2ZG28DY19dCPjb6S1 lZT1Y9BhGXZuvrhg hcukpWA3HVHmGAYqvP39 Gf7vhQdxRd4uDHPgZMR1 ZVVenFReZ1PkdW6iXtNa IWXpKPMjI1MigAMr INyzR305LSakPlE5USZy gsQtP1DaSGIncYtrToV9 f1F7Zs1VK2Y0OO10RS22 lMBjx0V6fDV9Z5Mt HQCwepghbipivDB8ZOSp UFVfvA92Ix8qzWorNf9z NTSrKGY1KGGodLFxF3Me yR2sZeOiAYIgDBXd O0AzxNDnLKylG457VMmp AxJ5RZOxuoLvL1GkXZYp yQlsSkG4x9K4Qp0LSKx8 PP95MI42tFWan7U5 zJI0S8UhQVHhqxpbnnsf yHP3UHRtANSrzU80Vm4c hKvsDl4rEDRxUJK6ETRm gUUgM8QtoW6mUyDr MNYrICOyE9DyaHHpMIzz D393NHpaFyV9IBEqfdCb I7JhPUMsqVgeNuC2j0W6 Qd6KYELzJR31CAM2 bPU0PO08JM40V8WwTzsh dGFibGU+PHRhYmxlIHdp ZHRoPScxMDAlJyBzdHls RL2rHd3tTPBdGVQf jZgleDYxReAmb4snSTPu QQryNM3ngGxoY5PwkCA3 UPGfw7a0Be02Y86aN6Nw dXA+VSKozWZ6hLO8 qC6tWzZtOlM0YGevP787 JoBndVVfBlzuy4lbr3dn dEr9MlY1TZSwctDxoJvl IWW5x2FwJc79F69g IHdpZHRoPSIxNSUiIHZh gFueds3taA3pMl7+PGNv pTI2lWW3nI2uHbSkDyJ0 IMuiH558PsQclJHh Zevvp5vqu7xuxQz4SfUs VILcooPssXpiLDP9m4Al Ih15R5OcoQdmd1NjSup5 gw24gBZfm0A0gYL9 P9KlRWMjxkbfiNBaxPzp AX1qIYOcidffICJhwC4g JHWpT2q7OcBiRrI2RArq T6NlnuS1FQSwqASy ETlzVKB9B76gs6F6XTLx IOGxNVL9aZF5jX0xaFvh bjogbGVmdDsgdmVydGlj QHwrILvqF572APLt rInbQQHtnR2wNKNjlTWi pDbsPP7gMKGaxwxpHgYY Ya6RLooeY8DOYYAYHAAb TTwvdGQ+PHRkIHN0 kVfqFZglTMZggS5pJNJs A9o2VhUiGxH2EFojZ3Jn PUBefbcqTp13eC3sOeTg TiZ8CVzfX0SlxyD8 ZRVywYNhUAvxADJ6T56n v6Z7XVPwZNZoUKO6cXL5 wN2smVdctqzybZQvuNbe dmVydGljYWwtYWxp T209DUGyoQghJwKvSdH9 QaT5NKc9W5FmQmk9BMVj iKgrAQ9lnLPyBAtpYi8r zXoeeIplCO9xMFRi fwqiZGXmxA2hBPOcjZYn oMorZZ4aVQPvffeua580 SpWtCLJ0UUNunSMtM8Jm jM7mInTiOXQkXVMu A4TwkFVfNIezI567ZXxa QmP1YPGdkdNfT5YcKBTe bTnxHpV5c3D1Rt4hKBPH ZWFyczwvdGQ+PHRk DOG9bRatNSnfXONtvC0x FBIkJ9l6LuLsFeA4FDvq L9SaLJAlmjjhBo47wA9v PbGoDcH4WFdwZ8Hu euC3NAFlkLXdMOpjUUR5 Y82sr1T1FDOgNCGrDVW6 sML1yX5qcWyfieembLUr dDsgdmVydGljYWwt KTqxW581RKPikIhrOvOa bWFsZTwvdGQ+PHRkIHN0 iLezSHzhQYNyjI0wTPKb J3l8UbCuQbF6WMgc H8TdJNDmioiyAy63xF0h NpVdBeY2MBfwK4OiduL5 MDLnaUPqUWrrSSU0P00o l9Z9BUFgUQUpFYG0 zIM4wB6qiEeezhfzyLMm dDsgdmVydGljYWwtYWxp L458VSMygOxeZosinUQ9 aWVudDwvdGQ+PC90 iu03G5FgExboVme5IKCp KCY7wEN9hC9pZGQhHUsv n1E1xCJ0K7UdsnEbcl1f m2tjHYCeNAqvA03m iAGev8O4TNHjkBT3HJCp gDyzTuNuvW53Znf+PGNv oXjzz7BxPwvph3pqc9tj aKw7PwQnQRSbtoUm fIpdJHH2z1SxPt28S84i IHdpZHRoPSIzMCUiIHZh xKxmwb7ocV3xAx1+PGNv sFS4sID0iZ9mWeGk DjY2YShmP759LmRpgNAh Vyptn4nnf7ewdQp0MeNo EYViehPgmXwrBZZ0k8Mw Qe89K4TbfAggg2Gj Oug3tm42rSGfz0F7sDC5 M6XgVOAgumkigMAfcCea GJ1yGUKumhdbGZKpyZ7h LIIsR8a9KaBoRbV0 OVvnH9QizjE4CKJpgBRm BTBewRALhO0knsizv5ol oekuRzAnBLVsQKr8KIt9 LWFsaWduOiBsZWZ0 ApF6ROV0mARayN6heTuu mgqaxJ2yTiw+YKl1x1lg dZLwKT7duXP6CC96KB51 tJDvs2C5dCY2T6Sz KFKehkulqppfpSF7AFCz WIPwaV66Cq8pyTdlBi6i YVLsYCG0KTTbfTBoW8Yd yX6aRzKoZXSlVAVc L9XqpFGhSQohF106ZYfj ZxZ3DKXckzFiS6CpDIPi qSlhAdL6l7N5Va1HUA25 UT15OT09nDAuq4Z5 tSG6O8NbPCFfsthwyqow oSJ8PPDkNCZbvZ35Mc3b kPgvOm2uEDTgXVL8PPAp qOSjZ5CghA7fOoJv WNXsDOSiV9CyjIRcREkd J759HYbaOtC9LHEeivDt O1DfUCBslRevHaJ0f7Q2 Qg6KDk85WS12ND91 cUJth7R5qMV7I2YkGNFq lujjnuumyYZ7YTMyNTAy oF66It2fqNkzKm1dZIWq XJY8QQZseZUqR8Ic jY5xPpPsKQOiJDZqZ6Ql zDJoZEjwW739VElaCgM4 LHRoczKoW2KpAQLiqJcx OwM8d9N0Yn0OSWwp vhr1W0UlVwtmnCF+PC90 OKNbMB78lBVxpORxl7up lXu0EnHnJKJtSPJ3cEqa IZzwm4HtDUXqG41c bGFw (more content not included)... Normal [facility] Nursing Assessmenton 022 Nursing Assessment [id number] 5#1.00CD:127 Normal [facility] Delivery Summaryon 2 Delivery Summary DATE OF DELIVERY: 05/30/2022 The patient is a 26-year-old 1, para 0, AB 0 white female at 39 weeks and 6/7 who presented to Labor and Delivery for spontaneous rupture of membranes. Her course had been complicated by need for fluoxetine, she had some Cytotec ripening, and she had copious amounts of spontaneous rupture of membranes and was admitted. She had minimal contractions and a gentle Pitocin augmentation was initiated which allowed her to make gradual progress through the latent phase of labor into the active phase of labor with a labor in an occiput posterior position. She eventually reached complete and complete and pushed through the second stage of labor spontaneously delivering a 7 pound 14 ounce male infant. She had relatively decreased expulsive efforts secondary to the epidural and the delivery process from the head to shoulder was approximately 1 minute and 40 seconds. Most of that was secondary to expulsive effort. Kasper maneuver was performed to ensure that the 's shoulders were out of the AP diameter. She then spontaneously delivered the 7 pound 14 ounce male . Apgars of 6 and 8 were assigned. Arterial cord pH was obtained. The placenta delivered spontaneously intact. Uterus contracted down well. No repair was necessary. Both mom and were doing well in the room. Devin Pereira M.D. Dictated: 05/31/2022 [id number] Transcribed: 05/31/2022 Normal [facility] Comment on above: Result Comment: Elec tronically Signed By: Kelli DEMPSEY, Devin Collier\.br\Date and Time Signed: 06/02/22 11:12 EDT CBC w/Indiceson 05-31-2022 Erythrocyte distribution width (RBC) [Ratio] 13.3 % Normal 10.9-14.2 [facility] Comment on above: Performed By: #### 2 [id number] ####[facility] [address] [place] [address] Hematocrit (Bld) [Volume fraction] 29.4 % Low 34.0-46.0 [facility] Comment on above: Performed By: #### 2 [id number] ####[facility] [address] [place] [address] Hemoglobin (Bld) [Mass/Vol] 10.3 g/dL Low 12.0-16.0 [facility] Comment on above: Performed By: #### 2 [id number] ####[facility] [address] [place] [address] MCH (RBC) [Entitic mass] 29.0 pg Normal 27.0-34.0 [facility] Comment on above: Performed By: #### 2 [id number] ####[facility] [address] [place] [address] MCHC (RBC) [Mass/Vol] 34.9 g/dL Normal 31.4-36.0 [facility] Comment on above: Performed By: #### 2 [id number] ####[facility] [address] [place] [address] MCV (RBC) [Entitic vol] 83.1 fL Normal 80.0-100.0 [facility] Comment on above: Performed By: #### 2 [id number] ####[facility] [address] [place] [address] Platelet mean volume (Bld) [Entitic vol] 9.5 fL Normal 6.4-10.8 [facility] Comment on above: Performed By: #### 2 [id number] ####[facility] [address] [place] [address] Platelets (Bld) [#/Vol] 192.0 E9/L Normal 150.0-500.0 [facility] Comment on above: Performed By: #### 2 [id number] ####[address] [place] [address] RBC (Bld) [#/Vol] 3.5 E12/L Low 4.3-5.9 [facility] Comment on above: Performed By: #### 2 [id number] ####[address] [place] [address] WBC corrected for nucl RBC Auto (Bld) [#/Vol] 9.4 E9/L Normal 4.0-11.0 [facility] Comment on above: Performed By: #### 2 [id number] ####[address] [address] Discharge Instructionson Discharge Instructions [id number] 0#1.00CD:127 Normal [facility] HEMATOLOGYOrdered By: Swathi Weir on 05-31-2022 Erythrocyte distribution width (RBC) [Ratio] 13.3 % Normal 10.9 - 14.2 % [facility] [place] [facility] Hematocrit (Bld) [Volume fraction] 29.4 % Low 34.0 - 46.0 % [facility] Hemoglobin (Bld) [Mass/Vol] 10.3 g/dL Low 12.0 - 16.0 gm/dL [facility] MCH (RBC) [Entitic mass] 29.0 pg Normal 27.0 - 34.0 pg FT [facility] MCHC (RBC) [Mass/Vol] 34.9 g/dL Normal 31.4 - 36.0 gm/dL [facility] MCV (RBC) [Entitic vol] 83.1 fL Normal 80.0 - 100.0 fL [facility] Platelet mean volume (Bld) [Entitic vol] 9.5 fL Normal 6.4 - 10.8 fL [facility] [place] [facility] Platelets (Bld) [#/Vol] 192.0 E9/L Normal 150.0 - 500.0 E9/L [facility] [place] [facility] RBC (Bld) [#/Vol] 3.5 E12/L Low 4.3 - 5.9 E12/L [facility] [place] [facility] WBC corrected for nucl RBC Auto (Bld) [#/Vol] 9.4 E9/L Normal 4.0 - 11.0 E9/L [facility] [place] [facility] Inpatient Clinical Summaryon 05-31-2022 Inpatient Clinical Summary [address] [address] Clinical Summary Person Information Name: ADONAY SAEZ [facility] Age: 26 Years : 1995 Sex: Female PCP: Shanna Daniel DO Marital Status: Single Phone: [phone] Race: White Ethnicity: Non- or Language: Croatian Visit Id: Visit Reason: VENANCIO PopdeemDEWAYNE Speciality: Acuity: 1 PP Enc Type: Inpatient Med Service: Obstetrics Arrival: 05/29/2022 07:02:32 Discharge: 05/31/2022 15:30:00 Dispo Type: Home (Routine DC) Address: [address] [place] [address] [id number] Provider Notes: Diagnosis: (spontaneous vaginal delivery); Shoulder (girdle) dystocia during labor and deliver, delivered Problems Active (08/25/2021) Smoking Status: Never Smoker Functional Status: Sensory Deficits: History of Falls: Mobility Assistance Prior to Admission: Independent ADLs: Independent Current Level of Assistance for Self-Care/Mobility: Cognitive Status: Allergies No Known Allergies Laboratory or Other Results This Visit (last charted value for your 05/29/2022 visit) Hematology 05/31/2022 5:49 AM Hct: 29.4 % -- Normal range between ( 34.0 and 46.0 ) HGB: 10.3 gm/dL -- Normal range between ( 12.0 and 16.0 ) RBC: 3.5 E12/L -- Normal range between ( 4.3 and 5.9 ) RDW: 13.3 % -- Normal range between ( 10.9 and 14.2 ) MCH: 29.0 pg -- Normal range between ( 27.0 and 34.0 ) MCHC: 34.9 gm/dL -- Normal range between ( 31.4 and 36.0 ) MCV: 83.1 fL -- Normal range between ( 80.0 and 100.0 ) MPV: 9.5 fL -- Normal range between ( 6.4 and 10.8 ) Platelet: 192.0 E9/L -- Normal range between ( 150.0 and 500.0 ) WBC: 9.4 E9/L -- Normal range between ( 4.0 and 11.0 ) Urinalysis 05/29/2022 6:35 PM UA Bili: Negative UA Color: Yellow UA Glucose: Negative UA Ketones: Trace UA Leuk Est: Negative UA Nitrite: Negative UA Protein: Negative UA RBC: 0-3 /HPF UA Squam Epithelial: 0-2 /HPF UA Urobilinogen: 0.2 EU/dL -- Normal range between ( 0.0 and 1.0 ) UA WBC: 0-5 /HPF UA Spec Desc: Clean Catch UA Blood: Negative UA Clarity: Clear UA pH: 6.5 -- Normal range between ( 5.0 and 9.0 ) UA Spec Grav: <=1.005 -- Normal range between ( 1.005 and 1.030 ) Blood Bank 05/29/2022 7:39 AM ABO/Rh: O POS ABSC Gel Interp: Negative Measurements: Height: 154.94 cm Weight: 84.5 kg Blood Pressure: 125 mmHg / 73 mmHg BMI: 35.42 kg/m2 Procedures No Procedures Documented Immunizations No Immunizations Documented This Visit Final Med List: cimetidine 200 Milligram By Mouth 4 times a day. fluoxetine (Prozac 20 mg Cap) ibuprofen (ibuprofen 600 mg Tab) 1 Tablets By Mouth every 6 hours. Refills: 0. multivitamin, ( Multivitamins with Vitamin B Complex, Vitamin C, Minerals and L-Methylfolate oral capsule) 1 Capsules By Mouth every day. Care Team Members: Attending Physician: Devin Pereira MD Consulting Physician: Referring Physician: Follow up: With: Address: When: Dr. Pereira [phone] Within 6 weeks Comments: Call for any problems. Support Group first Friday of the month at 11am Call if fever>100.5 F, heavy bleeding With: Address: When: Services [phone] 06/03/2022 2:00 PM Patient Education Information: Normal [facility] Inpatient Patient Summaryon 05-31-2022 Inpatient Patient Summary [id number] Patient Discharge Instructions PERSON INFORMATION Name: SAEZ ADONAY Patel Date of : 1995 Current Date: 05/31/2022 15:48:13 PHYSICIANS Admitting Physician: Kelli DEMPSEY, Devin Collier Primary Care Physician: Shanna Daniel DO PCP Comment: Discharge Diagnosis: (spontaneous vaginal delivery); Shoulder (girdle) dystocia during labor and deliver, delivered Condition at Discharge: Stable ADONAY SAEZ has been given the following list of follow-up instructions, prescriptions, and patient education materials: PATIENT FOLLOW-UP INFORMATION Diet: Regular Activity: Expect mild pain, Expect minimal amount of drainage and/or bleeding, Activity as tolerated Wound Care Instructions: Remove Your Dressing IN: Days Call Your Doctor For: Persistent or heavy bleeding, Temperature above 101.5 degrees, Persistent vomiting IF UNABLE TO CONTACT YOUR PHYSICIAN AND YOU FEEL IT IS AN EMERGENCY, GO TO THE NEAREST EMERGENCY ROOM OR CALL 911 Home Treatment: Devices/Equipment: Special Services: WIC Additional Instructions: Physician to provide the following pending test results: None Follow up: With: Address: When: Dr. Pereira [phone] Within 6 weeks Comments: Call for any problems. Support Group first Friday of the at 11am Call if fever>100.5 F, heavy bleeding With: Address: When: Services [phone] 06/03/2022 2:00 PM In the event that this physician does not participate in your insurance network, please consult with your insurance company to find a nearby participating provider. Comment: INADJA CAMIELLE M, have received the attached patient education materials/instructio ns and have verbalized understanding. Patient Signature Date Clinican/Nurse Signature Date MEDICATION LIST New Medications [address] [address], [place], [place] [id number], [phone] ibuprofen (ibuprofen 600 mg Tab) 1 Tablets By Mouth every 6 hours. Refills: 0. Last Dose: Next Dose: Medications to Continue with No Changes Other Medications cimetidine 200 Milligram By Mouth 4 times a day. Last Dose: Next Dose: fluoxetine (Prozac 20 mg Cap) Last Dose: Next Dose: multivitamin, ( Multivitamins with Vitamin B Complex, Vitamin C, Minerals and L-Methylfolate oral capsule) 1 Capsules By Mouth every day. Last Dose: Next Dose: Pharmacy Information: [facility] PATIENT EDUCATION INFORMATION Instructions: Medication Leaflets: You may receive a survey from Paola Murphy asking you to rate your care experience. Your feedback is important and will help us understand what we do well and how we can improve the quality of care we provide to you, your loved ones and our community. It?s an honor to serve you. Thank you for choosing [facility] Normal [facility] Insurance Correspondenceon 0 05-31-2022 Insurance Correspondence [phone] [id number] #[email or web address]:[email or web address] Normal [facility] Coding Summary.on 05-30-2022 Coding Summary. CD:[id number] Gh0bWw+PGhlYWQ+PE1FV BHrS65krOFwjS7UY7gJP F0HGTABXFADUY9FRB9xw JU8LDlzS1RtxjVu SieemVTjRR88LAj9GWZ5 kNltHEexzM5biHBeS0c6 QxSxPL40vX94QCmdDEHf CjJ3XpDsnbnbyBCc V8zzQfNmzRQdHxp+PHRh YmxlIHdpZHRoPScxMDAl AqKinJahHE1aSv2dFMLc LWNvbGxhcHNlOiBj r4azODIiDFgrRD0zbIdi P4SutPA5PZSao7t5Tg99 dHI+CJIiBRG7wEeqYIjz m848YzJal4yfYIG5 vXMxFKimMKP9B44wj1I1 RXNqEZWyPVU5gNL4xY8x nZiknvfcL5SlaMHeRjC7 TPX6gFOcrD7uwPyu rkvrmZ2lLqt+M55CFW9T LDZWVY2QOgd0Y9LsAnvq dHI+FA60VVJnMD76qAEe nHVaq6yfaLi4RxVu MQMpCRU9hJjfKBzsv4Fl KHLiT33dgMVbi1J4XLDl iDcmgHHnAfBbhYH0vD5l MDvjjkyvq6bcdcuo Msbcl6teev72nI36C62v ACjeNCQpYPH2DXKdJSEj zUifbp3fmV0uDl5+IDxj n3vtp4tzmCh2TdTy BLKenvQtlVlqFLC1d8Uq Cn86U8AfkHeoo8PdJhp5 po97kMVne1Z6rGB0ZWuz DFDowO8sJNdrEdS7 VPPeGjCsmE64sIObDSdg Vl8hkCwogClvCA7pHBPm njvlQUKpnF8dSYFfzEYe vYtjMH0tSZRkdhzs w856LdKyYFF7GYIcdQNe V2QslX6fCtTmNSAmFXXh C9BlsFMkQZnwH203RQye YfB5STFhfnHjR5Ya EXIlsFthZsA3y4U2Fr4X r8ToqvfxUQK9YAnjIFX4 RwX0AgZyYcG2C3HxSom6 UAVwkJunQC7sM6Bi DLTbyoexolyanRG9GGOu ZVGixA97cWFmKHsyUo8a w3O9r012YYUeCATpyL66 Sy8ziQqwSYDidASL fA2yqhdha5gicubjMrDf PEWjKSf1ZPc0YSSgtGmg TfPkHRL3XgZ0UHP0vEZc aR9riAnhgkxelB7b Oyc+J46ipR8vRMC3MLA7 dqabSWIjvsQpMY92SV74 A3UkKtirdOOjzCI+PGRp xwJfhIyeHM9wKxGp s3vtm4RtXAaaO7QxNVCb JPjsSfs0IBFoHFF5sGV8 xM7kHSOtIIwbv0C5tTH9 S0IkhvVzpx0et8bc USXgEBwjW04xfRWta9S1 UQVwdUE4EQPgqPeoJdCu dR49Lje+HBBmxTqkr1Rs Jnilx8ytp1uwnAh2 IjMwJSIgdmFsaWduPSJ0 r8OeFs16Q55kFCkiWHCf GFRoXNNqPNQdoTzksa3n aG4mAe7+PGNvbCB3 ySJ1rF5rCUUmTfA8BNqz I872JlOtyESlYvste3sr d4zxwWn7BsPaQJDmlbMn aFbcPHI4o7EaUw74 Z98eKVxiRSGpCAVkIWVb UNPyxVswqx6xmJ5iUl6+ CI7ys8fkwt13sL38hXY+ QTXbSTG3qPrfECmr STDorT4cWQjfSwG7WWGn EoVefB70gXPzYSrcXh5b mQtnqRfoYV7jJMBozyky p400XlYbw9cvOERn qTEzSEgkAVE6R00oj9K7 UNXcQEHpXLU7aOB3zC2v bGlnbjogbGVmdDsgdmVy qNidXJiqIErsN822 IHRvcDsnPlBhdGllbnQg ZfIuNYk7K4KwDlf9AVRh kHxjZY9pwZHzBNztOe9f yQeucUioZC4rEENx tcvla756DiEbj5geAACe jGEuQZigUSQ7B32wr0V9 QHYqOSCdKCI0xYY0aA7s bGlnbjogbGVmdDsg iaKqyJuqELqbTIloS485 IHRvcDsnPkJpcnRoIERh qEH4TN35GR46nCUdz6N4 uEL9F8GwCILgbkhe peaxfDZ8MMCnSMHubI76 Ei8thHrsLu8xILXnDBR0 DLQalLGcO8OpuH7cRhLx ZIJzKAQxG0IufSJq FWgwT954PDxwBhD3GFRc kvVaP5YrHYMlpAiaQxE2 j3D7Am7LV8O3OE86MF92 eLGdl0J3xYV7Y8Zp GWQejzntfmawvKS0XRSl DMRevI36Cg9dsYpvPd9v OYUbELU0WJWobKFrU0Ss gN3uJqMzAGWnUOFs C0JxoNGwQYbqO436MUqx JzJ2JKRiyoMbN4EvPPQi jRitBkN7x7J0Jo9BFXd7 MK53VM48wPPes7W5 jXB9T2CeCUDszcueuurv mHR5TEIkJCVpxO38Cu2e nDfhLp9nTBKuEYF9UDUm lWUiA6UvpM3bDnWf QGSaFOIeX5HpeLHbINjy A084ECfnSmZ5LVXkycZg L1XjOJHacIpbVuJ4f2K3 Dy9DBKMeET70XEZ9 pKE9WI09PY35M6AaDylo dGFibGU+PHRhYmxlIHdp ZHRoPScxMDAlJyBzdHls JU8aMp7mDAVdLORq sRcseHEdWeMmf3nwQEQs JUkeUA9anXdbO3SkqKY4 TPOym1h2Wy41F78pB5Vf dXA+YZManUM1ySG0 qV7aTkZwWqN9SZvyR592 ZfSkpJMeYmcsb5mkz2ks kAt0XlJ1FNTijsKggMci RNO3u4SpRs55R82j IHdpZHRoPSIxNSUiIHZh bXoorj7ucO5lCx1+PGNv mYR5nDF4bO5cJyHvPjY2 WGhcM665ZiTlxNIa Yhfmd7oog1pcnSd8JnEo SDZdorZdtYhwORO2x7Ci Cw51H3RcnJgdo6FtNnv4 bc59oGPyc1C6uRT7 L3DaRKFuzlinjNBuhMsg DY8sHEVbljudGLKohB9f HNRtK7z4HfQcNiF0VMpu T8YnpnP3YPRsmAKx PFfqZUY2D31dv0E6QLWe CKXjYSJ6lRS0oX1mlKfg bjogbGVmdDsgdmVydGlj CPibTGolE997NRQd kKebXGWjeB0jGAQhaGPo qMydLQ1sIUOpwtbbLzEL Hn9QMbsnN3KUWAZNOTMa TTwvdGQ+PHRkIHN0 fDajHRgsQPHoxV1yEASe V8d1OdCwUqQ6WRldA9Gx UQJaiqmtDm00tW3cMkGj WrO8SOacC8AnubY1 KTDxsKYkNYyhJUL6K45w h6U5ZRSrTYPdLQN5yCW6 rE4dtFrnqdkqoPBnhKqr dmVydGljYWwtYWxp Z677DDConZpqZhGpFaR3 GmD6LXg8U7WcBtm7XPEv aPjvMY6yiAYxRBlwKk7d zVzewAuuJZ2vYJZo ccfbUSIxtX8sFIZvtDCk mJtlOB2oKTJzqbvfb550 AoYnDRA3IIIcgJJpV8Af nU3gLdArIILsTNNv Q7TdtJBvMQxaU212EUmo PkJ3VSSplxHmV6UiXWRy tChvTuU8o8F7Sr2uGQQZ ZWFyczwvdGQ+PHRk LVU8cEnwOYdbXEPddM2g TQZdO1s4AeHwMlC8KUzd D2XvXFJxzmfzAn05rV3e PhQhVkV1NXrdB0We ouH3AKIjtWNbIStoXMD0 Q59ed6S2QUAlLKMxXPI9 eUX7bX5rtCsujiqncPTa dDsgdmVydGljYWwt KDdrB182CDMotXxeDyVj bWFsZTwvdGQ+PHRkIHN0 cWxcUQarBSSqjK4rLTXg X3m3NfQgWqN8ZYho B4CaGVKdojghPi85sE4o EbQaQoA7NGjfC0ZebeA1 YMCyyWDrLChhZUI7M89j a0U8EDRyTXAmLSB8 uCH0mV8ckYkfetjkrFLm dDsgdmVydGljYWwtYWxp X270EXAjnQmbTb7IMBJa aWFnZTwvdGQ+PC90 dz22F3XxJmydAyh4GUMc USP0lHZ6gR2mQFHiRIep c3X5sDP4U0GaedAekn9k q2ouOBCiQApwB53l tOTyc3Q6RXQbfEU6XPFz rYyeNeXyxA63Wlj+PGNv aTild6PhMloqg5uix9mb xXy4OeFkAJSvxiAt gJqzVKL5z0TiJs59J77a IHdpZHRoPSIzMCUiIHZh tFkrze8iqG9cWt7+PGNv pJU6gCX5rK1eQqFu ZiJ1DQytA108FhZdnTBw Qyikm3dcd4gxrFl9UqHh SEDtreDowUeyFAH4v0Mb Bk46D3KyiWfiu5Te Iym3lt00vYIyu3X8pZQ0 P0SoACOaqblwmJJymFes SP4sAIEyusoyVOFmvI8q JXXtX4m8UvFjRmN4 BQbkZ1DsroZ9CVCjxAGl XRXkkZONxY1spitfl5gn tkdnRvZiLGMcUUq7QPo5 LWFsaWduOiBsZWZ0 PnH1XFR1lAUbnL6foKjh ilifkA9gVxo+GCa9v0fq jUCbXP8biXP0FW21WF26 xYIdt1E5iVT6Z1Vb PVQjjmyvcauahQH9BQGy TRMjhA55Oy4bfFzkKh2f ZSMpJQT7YXWiyINkF8Oo oK7dKtOuIJFtJXVy P4KhiSUiNGlsF014UWxk QfR7EYDeinCtW0DxFZQm zRjdHxN8t4E4Qe5DJX91 HM23QB78zRRhf7U7 vPD0K4UbJORecrgupyet cLA2PSZuHYRjaF39Ul9v hYoeXz9gBQToXQA8HUZq xQQoM3DmbN8bAlBx HSTfWDPrI8JhdDTkKTfq W671XYbqEwH7EKJvhvKp A9ZxTWQrpTntRtF1s3A9 Wx2ANx25CC75TT18 hNSij6S2gZK3N3JyEBNf smzwecktlCG1QDYkQLGz yZ21Vn9tlJzyAk0gWSRx EIV6FFJkaAUtU4Um jA3kXpLiLGKsGDTwE7Li nDBlXJxgN984NGrxSsF6 LUIbxmKjO3QcYKAgwFiq ScE7m0K4Rv8PVRte lsj2B7SbXaizuTC+PC90 AQWhZZ71bVLzsKDix3oi dCk3NtVfXYMoCTQ6kOun IBgcf7ObSNEcL06p bGFw (more content not included)... Normal [facility] ABO/Rhon 05-29-2022 ABO/Rh Positive Invalid Interpretation Code [facility] Comment on above: Performed By: #### 1 [id number], [id number], [id number], [id number] ####[facility] [address] [place] [address] ABO/Rh History Checkon 05-29 ABO/Rh History Check Verified Hx Blood Type Normal [facility] Comment on above: Performed By: #### 1 [id number], [id number], [id number], [id number] ####[facility] [address] [place] [address] ABSCon 05-29-2022 ABSC Gel Interp Negative Normal [facility] Comment on above: Performed By: #### 1 [id number], [id number], [id number], [id number] ####[facility] [address] [place] [address] BLOOD BANKOrdered By: Alexandra villaseñor on 05-29-2022 ABO/Rh Interp Positive Invalid Interpretation Code [facility] [place] BB Subsection ABSC Gel Interp Negative (05/29/22 7:39 AM) Normal [facility] [place] BB Subsection Blood Bank ID#on 05-29-2022 BBID# [id number] Invalid Interpretation Code [facility] Comment on above: Performed By: #### 1 [id number], [id number], [id number], [id number] ####[facility] [address] [place] [address] CBC w/Indiceson 05-29-2022 Erythrocyte distribution width (RBC) [Ratio] 13.1 % Normal 10.9-14.2 [facility] Comment on above: Performed By: #### 2 [id number] ####[address] [address] Hematocrit (Bld) [Volume fraction] 33.1 % Low 34.0-46.0 [facility] Comment on above: Performed By: #### 2 [id number] ####[facility] [address] [place] [address] Hemoglobin (Bld) [Mass/Vol] 11.4 g/dL Low 12.0-16.0 [facility] Comment on above: Performed By: #### 2 549153 ####[facility] [address] [place] [address] MCH (RBC) [Entitic mass] 28.5 pg Normal 27.0-34.0 [facility] Comment on above: Performed By: #### 2 988666 ####[facility] [address] [place] [address] MCHC (RBC) [Mass/Vol] 34.4 g/dL Normal 31.4-36.0 [facility] Comment on above: Performed By: #### 2 632295 ####[facility] [address] [place] [address] MCV (RBC) [Entitic vol] 82.8 fL Normal 80.0-100.0 [facility] Comment on above: Performed By: #### 2 442241 ####[facility] [place] [address] Platelet mean volume (Bld) [Entitic vol] 9.7 fL Normal 6.4-10.8 [facility] Comment on above: Performed By: #### 2 252271 ####[address] [address] Platelets (Bld) [#/Vol] 215.0 E9/L Normal 150.0-500.0 [facility] Comment on above: Performed By: #### 2 597388 ####[address] [address] RBC (Bld) [#/Vol] 4.0 E12/L Low 4.3-5.9 [facility] Comment on above: Performed By: #### 2 518438 ####[address] [address] WBC corrected for nucl RBC Auto (Bld) [#/Vol] 7.0 E9/L Normal 4.0-11.0 [facility] Comment on above: Performed By: #### 2 845063 ####[address] [address] Consenton 05-29-2022 Consent [id number]# 1.00CD:127 Normal [facility] Consent for Procedure/Surger yon 05-29-2022 Consent for Procedure/Surgery [id number] 9#1.00CD:127 Normal [facility] Consent for Treatmenton Consent for Treatment [id number] #1.00CD:127 Normal [facility] Discharge Instructionson Discharge Instructions [id number]# 1.00CD:127 Normal [facility] HEMATOLOGYOrdered By: Alexandra villaseñor on 05-29-2022 Erythrocyte distribution width (RBC) [Ratio] 13.1 % Normal 10.9 - 14.2 % [facility] HemeAutoSS Hematocrit (Bld) [Volume fraction] 33.1 % Low 34.0 - 46.0 % [facility] HemeAutoSS Hemoglobin (Bld) [Mass/Vol] 11.4 g/dL Low 12.0 - 16.0 gm/dL [facility] HemeAutoSS MCH (RBC) [Entitic mass] 28.5 pg Normal 27.0 - 34.0 pg [facility] HemeAutoSS MCHC (RBC) [Mass/Vol] 34.4 g/dL Normal 31.4 - 36.0 gm/dL [facility] HemeAutoSS MCV (RBC) [Entitic vol] 82.8 fL Normal 80.0 - 100.0 fL [facility] HemeAutoSS Platelet mean volume (Bld) [Entitic vol] 9.7 fL Normal 6.4 - 10.8 fL [facility] HemeAutoSS Platelets (Bld) [#/Vol] 215.0 E9/L Normal 150.0 - 500.0 E9/L [facility] HemeAutoSS RBC (Bld) [#/Vol] 4.0 E12/L Low 4.3 - 5.9 E12/L [facility] HemeAutoSS WBC corrected for nucl RBC Auto (Bld) [#/Vol] 7.0 E9/L Normal 4.0 - 11.0 E9/L [facility] HemeAutoSS Recordson Records [id number]# 1.00CD:127 Normal [facility] Progress Note-Physicianon Progress Note-Physician Patient: ADONAY SAEZ Age: 26 years Sex: Female : 1995 Associated Diagnoses: None Author: Jose Miguel Garcia Jr., DO Postoperative Information Post Operative Note: Day 2. Anesthetic utilized: Regional: Epidural. Health Status Allergies: Allergic Reactions (Selected) No Known Allergies Problem list: All Problems / SNOMED CT 427115863 / Confirmed Resolved: Anxiety / SNOMED CT 26620656 Resolved: Depression / SNOMED CT 236642646 Physical Examination General: Alert and oriented, No acute distress. Neurologic: Normal sensory, Normal motor function, No focal deficits. Review / Management Condition: Stable. Assessment Anesthetic outcome No post-epidural complications noted.. Plan Transfer/ Discharge: Condition stable. Normal [facility] Comment on above: Result Comment: Elec tronically Signed By: Jose Miguel Garcia Jr., DO\.br\Date and Time Signed: 05/29/22 17:36 EDT Progress Note-Physician Patient: ADONAY SAEZ Age: 26 years Sex: Female : 1995 Associated Diagnoses: None Author: Jose Miguel Garcia Jr., DO Chief Complaint Intrauterine Health Status Allergies: Allergic Reactions (All) No Known Allergies Current medications.Problem list: All Problems / SNOMED CT 066388504 / Confirmed Resolved: Anxiety / SNOMED CT 68639016 Resolved: Depression / SNOMED CT 002821462 Review of Systems Respiratory: Negative. Cardiovascular: Negative. Hematology/Lymphatic s: No bruising tendency, No bleeding tendency. Neurologic: Negative. Physical Examination Please refer to Labor floor nursing records for ongoing vital signs, and for intake and output totals while epidural was running. Review / Management Differential diagnosis: Active labor. OB Results Review Labor 05/29/2022 7:39 EDT WBC 7.0 E9/L RBC 4.0 E12/L LOW HGB 11.4 gm/dL LOW Hct 33.1 % LOW MCV 82.8 fL MCH 28.5 pg MCHC 34.4 gm/dL RDW 13.1 % Platelet 215.0 E9/L MPV 9.7 fL ABO/Rh O POS ABSC Gel Interp Negative Impression and Plan Plan Labor epidural at request of patient.. Procedure Epidural injection procedure Date/ Time: 05/29/2022 17:15:00. Confirmed: patient, procedure, site, safety procedures followed. Performed by: Jose Miguel Garcia DO. Informed consent: signed by patient. Indication: Active labor.. Preparation and technique: informed consent obtained (from patient before the procedure), positioned (sitting), sterile preparation of site (patient's back was sterilly prepped and draped) (in usual fashion, with 10 % povidone iodine, draped to expose affected area), local anesthesia (1% lidocaine was applied to the patient's back before the epidural was attempted) (lidocaine without epinephrine, _1_ cc injected subcutaneously), approach (midline), needle (17 ga touhy) (placed via loss of resistance technique, At _L4-L5_ interspace.), aspiration (attempted for blood and CSF), injectant (test dose consisting of 3 ml of 1.5% lodocaine with 1:200,000 epi) (test dose given, Epidural catheter inserted and secured at a depth of _12_ cm at skin.). Procedure tolerated: well. Complications: Negative heme, negative CSF, and negative response to test dose.. [facility] Epidural Medications Administered: Bolus dose consisted of _6_ ml of 0.2% Ropivacaine and 100 mcg of fentanyl (2 ml) at 1726. Then a premixed epidural bag of 0.2% Ropivacaine, and 2 mcg/ml of fentanyl was administered via PCEA with basal rate at 10 ml/hour and demand boluses of _5_ ml with a lockout interval of _30_ minutes. The PCEA was started at 1728. Normal [facility] Comment on above: Result Comment: Elec tronically Signed By: Jose Miguel Garcia Jr., DO\.suresh\Date and Time Signed: 05/29/22 17:36 EDT UA With Cult Reflexon 2021 Epithelial cells.squamous LM.HPF (Urine sed) [#/Area] 0-2 Normal 0-2 [facility] Comment on above: Order Comment: Urina ry Catheter Insertion triggered Urinalysis With Culture Reflex order by discern. Performed By: #### 1 [id number] ####[facility] [address] [place] [address] [place].plasma/Lithiu m.RBC (Bld) [Mass ratio] 0-3 Normal 0-3 [facility] Comment on above: Order Comment: Urina ry Catheter Insertion triggered Urinalysis With Culture Reflex order by discern. Performed By: #### 1 9107239 ####[facility] [address] [place] [address] WBC LM.HPF (Urine sed) [#/Area] 0-5 Normal 0-5 [facility] Comment on above: Order Comment: Urina ry Catheter Insertion triggered Urinalysis With Culture Reflex order by discern. Performed By: #### 1 4503609 ####[facility] [address] [place] [address] Bilirubin Ql (U) Negative Normal Negative [facility] Comment on above: Order Comment: Urina ry Catheter Insertion triggered Urinalysis With Culture Reflex order by discern. Performed By: #### 1 0043095 ####[address] [address] Clarity (U) CLEAR Normal Clear [facility] Comment on above: Order Comment: Urina ry Catheter Insertion triggered Urinalysis With Culture Reflex order by discern. Performed By: #### 1 4222412 ####[address] [address] Color (U) YELLOW Normal Yellow [facility] Comment on above: Order Comment: Urina ry Catheter Insertion triggered Urinalysis With Culture Reflex order by discern. Performed By: #### 1 [id number] ####[address] [address] Glucose Test strip (U) [Mass/Vol] Negative Normal Negative [facility] Comment on above: Order Comment: Urina ry Catheter Insertion triggered Urinalysis With Culture Reflex order by discern. Performed By: #### 1 [id number] ####[facility] [address] [place] [address], [place] [address] Hemoglobin Ql (U) Negative Normal Negative [facility] Comment on above: Order Comment: Urina ry Catheter Insertion triggered Urinalysis With Culture Reflex order by discern. Performed By: #### 1 2705756 ####[facility] [address] [place] [address] Ketones (U) [Mass/Vol] TRACE Invalid Interpretation Code Negative [facility] Comment on above: Order Comment: Urina ry Catheter Insertion triggered Urinalysis With Culture Reflex order by discern. Performed By: #### 1 1775255 ####[place] [address] [place] [address] Nitrite Ql (U) Negative Normal Negative [facility] Comment on above: Order Comment: Urina ry Catheter Insertion triggered Urinalysis With Culture Reflex order by discern. Performed By: #### 1 9287411 ####[address] [address] pH (U) 6.5 [pH] Invalid Interpretation Code 5.0-9.0 [facility] Comment on above: Order Comment: Urina ry Catheter Insertion triggered Urinalysis With Culture Reflex order by discern. Performed By: #### 1 4606049 ####[place] [id number] Protein (U) [Mass/Vol] Negative Normal Negative [facility] Comment on above: Order Comment: Urina ry Catheter Insertion triggered Urinalysis With Culture Reflex order by discern. Performed By: #### 1 2681212 ####[place] [address] Specific gravity (U) [Rel density] <=1.005 Invalid Interpretation Code 1.005-1.030 [facility] Comment on above: Order Comment: Urina ry Catheter Insertion triggered Urinalysis With Culture Reflex order by discern. Performed By: #### 1 5530035 ####[place] [address] Type of Urine collection method Clean Catch Normal [facility] Comment on above: Order Comment: Urina ry Catheter Insertion triggered Urinalysis With Culture Reflex order by discern. Performed By: #### 1 1685487 ####[address] [address] Urobilinogen Qn (U) 0.2 {[place]'U}/dL Normal 0.0-1.0 [facility] Comment on above: Order Comment: Urina ry Catheter Insertion triggered Urinalysis With Culture Reflex order by discern. Performed By: #### 1 8040041 ####[address] [address] WBC Auto Ql (U) Negative Normal Negative [facility] Comment on above: Order Comment: Urina ry Catheter Insertion triggered Urinalysis With Culture Reflex order by discern. Performed By: #### 1 2361403 ####[place] [id number] URINALYSISOrdered By: Paulina Dobbins on 05-29-2022 Bilirubin Ql (U) Negative (05/29/22 6:35 PM) Normal Negative [facility] UA Auto SS Clarity (U) Clear (05/29/22 6:35 PM) Normal Clear [facility] UA Auto SS Color (U) Yellow (05/29/22 6:35 PM) Normal Yellow [facility] UA Auto SS Epithelial cells.squamous LM.HPF (Urine sed) [#/Area] 0-2 /HPF Normal 0-2/HPF [facility] UA Aut o SS Glucose Test strip (U) [Mass/Vol] Negative (05/29/22 6:35 PM) Normal Negative [facility] UA Auto SS Hemoglobin Ql (U) Negative (05/29/22 6:35 PM) Normal Negative [facility] UA Auto SS Ketones (U) [Mass/Vol] Trace *NA* (05/29/22 6:35 PM) Invalid Interpretation Code Negative [facility] UA Auto SS [place].plasma/Lithiu m.RBC (Bld) [Mass ratio] 0-3 /HPF Normal 0-3/HPF [facility] UA Auto SS Nitrite Ql (U) Negative (05/29/22 6:35 PM) Normal Negative [facility] UA Auto SS pH (U) 6.5 *NA* (05/29/22 6:35 PM) Invalid Interpretation Code 5.0 - 9.0 [facility] UA Auto SS Protein (U) [Mass/Vol] Negative (05/29/22 6:35 PM) Normal Negative [facility] UA Auto SS Specific gravity (U) [Rel density] <=1.005 *NA* (05/29/22 6:35 PM) Invalid Interpretation Code 1.005 - 1.030 [facility] UA Auto SS UA Spec Desc Clean Catch (05/29/22 6:35 PM) Normal [facility] UA Auto SS Urobilinogen Qn (U) 0.9007906 {[place]'U}/dL Normal 0.0 - 1.0 EU/dL [facility] UA Auto SS WBC Auto Ql (U) Negative (05/29/22 6:35 PM) Normal Negative [facility] UA Auto SS WBC LM.HPF (Urine sed) [#/Area] 0-5 /HPF Normal 0-5/HPF [facility] UA Auto SS Vaccinationson 07-06-2022 Vaccinations [id number]# 1.00CD:127 Normal [facility] Consent for Treatmenton Consent for Treatment [id number] #1.00CD:127 Normal [facility] Discharge Instructionson Discharge Instructions [id number] 5#1.00CD:127 Normal [facility] Inpatient Clinical Summaryon 05-28-2022 Inpatient Clinical Summary [place] [id number] Clinical Summary Person Information Name: ADONAY SAEZ [facility] Age: 26 Years : 1995 Sex: Female PCP: Shanna Daniel DO Marital Status: Single Race: White Ethnicity: Non- or Language: Croatian Visit Id: Visit Reason: CYTOTEC Speciality: Acuity: Enc Type: OB Triage Med Service: Obstetrics Arrival: 05/28/2022 08:35:16 Discharge: 05/28/2022 17:00:00 Dispo Type: Home (Routine DC) Address: [address] [place] [address] [id number] Provider Notes: Diagnosis: Problems Active (08/25/2021) Smoking Status: Never Smoker Functional Status: Sensory Deficits: History of Falls: Mobility Assistance Prior to Admission: ADLs: Current Level of Assistance for Self-Care/Mobility: Cognitive Status: Allergies No Known Allergies Laboratory or Other Results This Visit (last charted value for your 05/28/2022 visit) No Laboratory or Other Results This Visit Measurements: Height: 154.9 cm Weight: 85 kg Blood Pressure: 97 mmHg / 54 mmHg BMI: 35.43 kg/m2 Procedures No Procedures Documented Immunizations No Immunizations Documented This Visit Final Med List: cimetidine 200 Milligram By Mouth 4 times a day. fluoxetine (Prozac 20 mg Cap) multivitamin, ( Multivitamins with Vitamin B Complex, Vitamin C, Minerals and L-Methylfolate oral capsule) 1 Capsules By Mouth every day. naproxen (naproxen 500 mg Tab) 1 Tablets By Mouth 2 times a day. Take one tab by mouth two times a day. Refills: 0. Care Team Members: Attending Physician: Devin Pereira MD Consulting Physician: Referring Physician: Follow up: With: Address: When: Devin [facility] [address], [place] [address] Business (1) 05/29/2022 5:00 PM Comments: Call for any problems. Return for contractions closer, longer, and harder. Return for decreased movement. Return if ruptured membranes or vaginal bleeding. Patient Education Information: Normal [facility] Inpatient Patient Summaryon 05-28-2022 Inpatient Patient Summary [address] [address] Patient Discharge Instructions PERSON INFORMATION Name: ADONAY SAEZ Date of : 1995 Current Date: 05/28/2022 18:15:31 PHYSICIANS Admitting Physician: Devin Pereira MD Primary Care Physician: Shanna Daniel DO PCP Comment: Discharge Diagnosis: Condition at Discharge: Stable ADONAY SAEZ has been given the following list of follow-up instructions, prescriptions, and patient education materials: PATIENT FOLLOW-UP INFORMATION Diet: Activity: Wound Care Instructions: Remove Your Dressing IN: Days Call Your Doctor For: IF UNABLE TO CONTACT YOUR PHYSICIAN AND YOU FEEL IT IS AN EMERGENCY, GO TO THE NEAREST EMERGENCY ROOM OR CALL 911 Home Treatment: Devices/Equipment: Special Services: Additional Instructions: Physician to provide the following pending test results: None Follow up: With: Address: When: Devin [facility] [place] [address] [employer] () 05/29/2022 5:00 PM Comments: Call for any problems. Return for contractions closer, longer, and harder. Return for decreased movement. Return if ruptured membranes or vaginal bleeding. In the event that this physician does not participate in your insurance network, please consult with your insurance company to find a nearby participating provider. Comment: NADJA Jain CAMIELLE M, have received the attached patient education materials/instructio ns and have verbalized understanding. Patient Signature Date Clinican/Nurse Signature Date MEDICATION LIST Medications to Continue with No Changes Other Medications cimetidine 200 Milligram By Mouth 4 times a day. Last Dose: Next Dose: fluoxetine (Prozac 20 mg Cap) Last Dose: Next Dose: multivitamin, ( Multivitamins with Vitamin B Complex, Vitamin C, Minerals and L-Methylfolate oral capsule) 1 Capsules By Mouth every day. Last Dose: Next Dose: naproxen (naproxen 500 mg Tab) 1 Tablets By Mouth 2 times a day. Take one tab by mouth two times a day. Refills: 0. Last Dose: Next Dose: No Longer Take the Following Medications cyproheptadine 4 Milligram By Mouth 4 times a day. Pharmacy Information: PATIENT EDUCATION INFORMATION Instructions: Medication Leaflets: You may receive a survey from Paola Murphy asking you to rate your care experience. Your feedback is important and will help us understand what we do well and how we can improve the quality of care we provide to you, your loved ones and our community. It?s an honor to serve you. Thank you for choosing [facility] Normal [facility] Insurance Correspondence Off iceon 05-28-2022 Insurance Correspondence Office [id number] 1#1.00CD:127 Normal [facility] Coding Summary.on 05-22-2022 Coding Summary. CD:[id number] Gh0bWw+PGhlYWQ+PE1FV MPyB77tcIBbbD7MZ9pZA R8UYFQWPRDSSA3ELY7gs BW0RFomG0YmobDt OenqqCFzKS75BRi8SGR8 fMxoJQojyR3laRDbT3x5 GeUwPC06mZ75UBhnMJTj MlV6RmKbiykdcIIp X8wkZmAcnIQzVse+PHRh YmxlIHdpZHRoPScxMDAl DfYovUfoNH8kHc6nTGFw LWNvbGxhcHNlOiBj l7soMFSzHUgtMJ9ldLsj G4RvqUO1OAHui1j9Oi20 dHI+ASDvCPJ1kPwlSOxr n404GeWaf1weNWC3 tQHgDBowHUV0N14rn8M9 YSJeKJWkPRW9lNI9iA6u eYehvdarC5ChzQYtBvB3 RTK3lHVqgP8ydHbf fomixT0jZel+J88DPN2Y DUBPZY8BHgk8W1LwWtkt dHI+GB57LIEjWK90rFRx oSVpr0bbbKk5NiIy DPZsOLJ9cNqzQOsij2Tf LQKmH12lmXZlg1P5AESd kWfeaGXpDtUlxSR2oG4b QRvgplnic3zfzogr Buhta0isgc49mE17F52h VGypYCEhVTF7BTTqTAVp wVvhwi2dxC2wJb1+IDxj w3qid5tfgHs6WzAx AUIrjcQhtXthAYN1n4Dy Hk95V3SbgUamx5VuRwl3 dy72nLPsq7X0bBO2HOmo TWSsoQ0zAYziEvH0 FDPdRfFfuA53zSKzXKgy Sa4pbZbzqJpiJI4zLMFd utgyJMQntG8rNVNgnUSv kKrgTE9lFKCemzfs x184QbJoCKD8XQOrySBt X2TokD8kCgAeGWDcURKm A2DjaTIfZFxtX663UEeo WxU3NQIqzsJkI8Mr IGOxiMgnBxJ0u2C2Nh7J w3YusoflCAX4VQosTVS9 CmX9JeIwCqQ3V6CeOoh5 VOJzkFkgEJ2lT9Zl SCDvtgcayqckgNX7LTSt VSMfgJ13aBKdWZzxTe9o m8M8n456OOBiGXDplG81 Za1xzWdaXIYszFNQ lK8agkfoo3tgqzriJlYj RTZvLPc6NSd4EMKztStq DeQrNYQ0DlT6GWN2zEPr lB9deYhiskicwB3s Oyc+I96bsZ1oPYQ0UYM5 zitdSSUkmkIhZP22KE35 W1BsLivciLMuiJU+PGRp ouTqiPvvNO2hRuWf u1vxq0GwQQgfI6EjMDMd PPqeXdn3GSDuRVV8dHJ2 bQ5cCRLjFGhen3Y6sJE5 C7JgweLekm4ik4tk TTCeIYtcD51msLEfy8G8 JQGrnNP7WSQqiEnvCcBa pZ74Vvj+EEVhcDbly6Rz Nqvkj7zgi9ndeRt3 IjMwJSIgdmFsaWduPSJ0 y5TnFu20Z35cFMmiSAIc LGJxYOScHRLdlZdsdt8q kC0oWa9+PGNvbCB3 lJZ8qB8yPZNuWcK7WTll J526RfUoiHYaTkomb2cz i4nssTu0TpOqUFDyqpEk oHacZUH2c0TqWd34 X82bSTzmFTXvYBCwWPCl CTGqmVoigt5vsQ9dRg7+ IS5ou1kkvd76yU17mKG+ LZGpXQO8yDusOThz XZLjoG4qVTjjLoX8TYEh OtVuhW39nEPxPOedEj1s tJwecNofBE1aTXIgggwy j419RfYuh3xuEZGr aCVqWAphKVS5B08ts7R1 PXPlDOPcIFW9eDR2gA1y bGlnbjogbGVmdDsgdmVy mPadSLhlPPwpW107 IHRvcDsnPlBhdGllbnQg NmNlKAl8F1YjQsy5MFFr oFieYM9pbJYuMQcbXv2g fGuhyRzgDH7oYOEq qcnnn991BwSpp8tfDYOj sBYqNGuvOTF0K98ua9K6 SUSpQGAuUME0qNI1wP3c bGlnbjogbGVmdDsg hzTjvAzmRGihDVrkI988 IHRvcDsnPkJpcnRoIERh pCR1XN28GB25qYDmv7L2 wOZ6A5TzNNVnkwja agbosOX5JBMrCHMcuA18 Ur9vvBykOl9xAEKySYK6 ABBuxEKvE4XoxX1zVrWi IKDtUKDfZ0QasTXv AHinM126BUouNxZ4EKHa kjFvW4ZdUABicNrtWiG5 f6Q8Mp7HX4B6VO74KC77 dGLhx9G3hVS6T4Rc YPPnguzstnepxOE2AAJw HPQqlU34Fi9fxGgaJc7k NLYeDKJ8KFFqgVQqJ2Bw hW7vXfNcSOEaMHMi N9JhmSPbQHjwL534AAom JsR9EKFqkqSoD6KnDQTt rGgcJoZ5u1J3Jm1FQRi2 TA46HR76qMZmj8F9 gVE1C6RbAXJnznwkpnoj uNQ7WEEsYUZbuG81Bd1f uPnwKc1zPNLdIUK7QEDk jPIuV9YygU1cIhZw YPQfKABtJ4MtnGJhKYot E262QMqoKiV2YGVsgsYc D8TaTTGvdTyzVkY0y3F6 Bz7UCMMeGY94FRY9 nYO4QD86UV72F1UsCdwj dGFibGU+PHRhYmxlIHdp ZHRoPScxMDAlJyBzdHls MG3kWp7eUZFmALTo rXxmnJBuQwRnr9lmXDIy LKrxSM9evWwbJ1AjaBB3 MZPkg1d9Tx91Z07hP1Nx dXA+MPDpzOD6gFN3 mD5fJeHiKrJ5TAaiN051 WlEvwWTyKtjmf7xyf4et dNh0AwQ1HUWbmmInjXba OGN7e2YwYx20A29v IHdpZHRoPSIxNSUiIHZh vHqhhl6xaM5cDp3+PGNv eEX5bYZ5mJ7pPaGvTgM2 ALckZ553PtDqqVKf Hiosq7kdg7qapOa5TvDj KYEcpnDtlDttSRH3b9Nx Ui74O3ZhhEmxp4RsOty8 oy08iLWbb3B9mAX4 J3VvYVYjmcwkyLOctDtk GU3gHZSwqwpoUFKmmD0n RHHtU6v1UhOkHpB8CSai H2MozuQ4BOLuwLQr VLhkBCO0H53wi3I9OUCw SQZvDHD9iFL7gY9xnCyf bjogbGVmdDsgdmVydGlj MDbvLXbxA727YOGy dLdcPEGsqV1rNENtrNPu gEbzJO4gHFRlenvxLvVT Sw2XMuccP7ABVVFUJECs TTwvdGQ+PHRkIHN0 zWumQBdcXSDjmL8dDQBn H7d2XwYjHvN6DCiuB5Rf WVVspywkIj39cR1dKcDn GmU7LYzbT6SyrwL4 OMOlsCSdCBwgUYS2L65h u9P0GIBkQBGaMPV0sYJ9 oP5beLqqqqhveQXiuCgo dmVydGljYWwtYWxp H463HLRgxDtrLjTkObJ4 RwR5UZw4U1IfOlc7XBQp wGofGG2jiNOpHXtjFy6b pJhvkGykTP6tQRLa krokMXIffY6cOOMweNQv rImnEQ5nRNThfflpa646 TsLeJMW5FRWeiXSwB7Gv cK5vMlIzRKVvUFVr I9NifSKdOKjiC700WFwd MiX9JMFambWeY2AiJEDh zMnlVjD1t3T8Wa0eSCZS ZWFyczwvdGQ+PHRk FAO4nDefQLvlSKOmoJ5i UJLmP8b0GePuNgB9BPls Q3BfQUWtvwnoQo55dR2d JnSzLfE4BDipN9Ed fgC2TTDspEHlOUubUOY3 X00ks9K5BPPmQNOpNMZ4 lUN1xC9qgLkqgktxeTLy dDsgdmVydGljYWwt HEvuE782XMAukGmjYlDx bWFsZTwvdGQ+PHRkIHN0 eTpqRZfqMGMjlI3kCYXk Q3k3ZzJjEnQ4QUsv T0YoTTNctvzuHi07aI7i XjScAlT1LKjuZ7YycxI8 OAMirREfZCcwLNK0I95j a7K5LAZyLIUwCPH4 lST8oO6zmKwxjxbfdWLx dDsgdmVydGljYWwtYWxp E393PPEpzCtrRkcmAzLH fm4rEI3gIikxrHJ+ PE31cp75K3YhOtyxWut7 JNBlSJM8cTK6dC2mGAYv WWbyr2P1hEI1I2WtcpSw sb9bn9bwYFTwZDjj G87gcWTje6V4UDCmqAY5 DTXdbZmxZqVtcO22Wpw+ PUDajGqlb2RgJcmbz9ri e1beqSu4TeRhUMMw kqVrqEenYST7z5LaBr39 M88uVWdsPZQtBGOhMRCs RIOhyRttvv2zcS6qZo0+ QESlaBZ0oJS2tD1v FiQcXyW8DUwsV684LwDx wGOjZbzhy4eud8ooeJs8 IjIwJSIgdmFsaWduPSJ0 j3NmTa39P7NgdOkh y7JyExh1bp45vIWem0K8 aEJ1J7XbSIQhhwserXNg uTyeGE1kFZUamxrjSMBg kG8hLWKkA1s7WiGi CkE2BIvyY6PhpvQ3AKPv hHHxEJWxlLCXkG9crkic a1yixdyeTxJlUSNtGXv2 VAs9JSSvwMgvTgMc DWN7ElG9MVZ8yDYjjL4y xCqlidewuP2xUtb+UGh5 l1penRIjIB7jxDM0FN20 ZT10mCAml6S5lXL3 A7WhWUGfzeqxxyamoNP8 GFBaBFJzzL16To8rtTzy Mx7aNVIfOEG6FAEjrTUv Y0KkjI5jTmBcDJIb PRGhO5VgnZFeEWywP021 WHzkBvO2EJLibqLtF9Gc KMKefScnBhB2z6Q6Bb5E WR35XT87MU64rZXz f4Y1bLG9E4JhNGUrwsrk lkewqPL1GPBkESBlyE43 Nt7zmBgbLn2iWGAxYBE1 SIGdsMFoX0GzzX0b UeCdUXQkIBNaB1WgrJYw NNavQ759HKlpXjA4TROj hxBbV1XpUOKtnAeqKcG9 y6R9Bz6WEq10WL88 GA49dVIom1K1bYW1Q7Ar MGQarxpolgvchZW0FNIf HWOudD60Xa1mdBmbZp2i XGKuXYY7PSZsyYQb T8TjoK8rViJqMUHsDTAb D9GgxIQaETcnG724RFtk MwN9LPNfvnIqU1NnZVAj xKecNpK3o8F6Jm1M WOvvknq8E8YfOrxwkYJ+ GF59AHSdNX71vZCilDAo j0iszXk2QlOrLMVlKNV5 tQoxVXfoe9ZiYCWz Y29s (more content not included)... Normal [facility] Group B Strep by PCRon 05-08 Group B Strep colonization by PCR Negative Normal Negative [facility] Comment on above: Performed By: #### 4 [id number] ####[facility] [address] [place] [address] Physician Orderon 05-07-2022 Physician Order [id number] 7#1.00CD:127 Normal [facility] Physician Order [id number] 6#1.00CD:127 Normal [facility] Coding Summary.on 03-06-2022 Coding Summary. CD:[id number] Gh0bWw+PGhlYWQ+PE1FV WMkI71ksHXvjH6MU3mKM E3AXWXZXSTBDH6WUJ1up ZV1QQhuJ4SqaaZu ZnmrmPTfVN00XEp8UYY8 eUobYUbdvV1zbJNaA0q0 XaObEG52eR04PWbaSXMo NaH6LdJcrldylHRg L4erZtVjwXHhZln+PHRh YmxlIHdpZHRoPScxMDAl MvBmfBerTH1eCy1kKAMv LWNvbGxhcHNlOiBj v8yvUXRzZHtuEQ0liCxo W8HmhHC0BNWnr7m5Dk32 dHI+LVZoAAW3bDhqDYgr q960UtWof8uuSFJ4 eAWfXGsoQKZ8B59di4D8 VJFeUTGjYMY8uKI3hA9a wUvwdkczB9IouELeHsP9 DEJ5eCWbyA6yzLny vtoabT7fTef+V28OQG3C DRZCDY5TKxw2L4UiKjzk dHI+EZ74HOEfNO27pOLc dNIxt5lpxGz8CuZr USPoIDO2nDldGVfii7Cp FCBzB71mlJIev9D0ENVp dKmtmKMwOnTifOT3wY3s KFwbzuchp5joxsvp Mrdsg6zhbm09sD61T77l CIvjRDKrALZ7PSPnHYCa mFsvgo6phF4iPo7+IDxj a0ufw1cnnDy9IlOy LMScraWcqIrqRJI8o5Pe Ss55Z5AqsZsmz5XiRyw7 zb05oJVdl5Z4kUE0ICpz OSNksA4nSLipXyF8 MTBdXgZxuX91kAOcFQzj Mh5dxBfruKmjWJ4iZSAs oakqQUOptD7bJMMqgWRe jHuhGN6lRDLtukxr y901KjBqRDH7PQAesWVk P5VigB0kFjWcNDWfFYTi Q2MsxGDiGArrH187WEet YiF7DYWkkeVcA0Vk VSGexPylCrU3u5M8Lb3I y1BbthouHHN2QTyjGWP1 McGeHmYsZgA1H7CsUsw7 KAPfcDzfKA5vB5Nv PLUbnctsgefsnBC1CSGg KUGonC33oKHkZJxkHx6t a9T5u775QLSbQFIguR38 Wd4hbPzrXCJjkTGZ sV1gtrfmk0jjspzjEwXv MPBgBZa1DYz7MUYgwBit TbTkUFT4XpO6XYO0nLFw jE9ptMoxuycycG8m Oyc+Q58ioU8oDUM4YVH9 sqdyBZWtlzIvES92NZ32 Z2MjDjzeuQXbrSK+PGRp efSevDqdUH1bLlTb q0saq6XeRDhqI9RzAMTn FHlhAoo0QPQtGNF1qTY1 rE4pOWUcSVjnu4D3cSU2 B2XgitKtfa3kh3np TVSwMSdqB26xrVJwl1W3 JSClwLB6HBXngYuyYeNz rR12Cuc+TKNclDfoh8Ld Nvbmj9olx7jpdMa4 IjMwJSIgdmFsaWduPSJ0 j5IuVr59P08mKZdwZSJs UQZuAMBmFMYloOlyal1a pI5cPd3+PGNvbCB3 lVR6kA5lDPFaFhW0CVrp L682LbAhyXToKkmgd4tw a8vxrLo4MxEtXAYkllDf wQkkXFE9s3ZkDu65 W64lLYswDGVyHYVzJCCa QGQqfYgbhz8keB1xVp7+ TC0un2pgrj78eQ89gYE+ JUIdXAV7bWznEKek JVNxcB5lURsoHjQ8MFFp IzLsbO07kWJuCMrvLb5u mQdwdTlfCS5mBHMccmuw n378RvYum1uvSRJh hMOrUHvoNPU2O06ez7G4 RTXlMWPnQIM4wFN0jF0j bGlnbjogbGVmdDsgdmVy fKkjJBalOYfvT371 IHRvcDsnPlBhdGllbnQg CjIsVGs6W9QdVzb5NYEv cHvcBM1cuOYnVTwvGl2m pMqkpTkzOX0mOHKr irguw915UvYvc8weMLTv kEYmIRebGUZ2S09pf1C3 PFExEKTvFDE6bNS8eM0x bGlnbjogbGVmdDsg tnHghZhyYYeyLEyfO216 IHRvcDsnPkJpcnRoIERh rVB9XH86MN73jCAwi8K2 uJB4C2EvZHTaagai pixlwJC5TDPnUEHqlM94 Zv1jxUuaZf9nIUGvWLG1 ITZwbPTlH9YliF3cAsGk JHJxAIAmN9YpmVFf FPgfU009ROmiLiI9ZOHw huDpY6PqATGnfQsdCvA9 z7M1Qs1QU1C6NM88WE29 eAOzj8L2tRC8A2Th FOMjnbbvnututOS8SLEd TZNgjF28Ty0vsBkvHh6p ZXCrXBK6JOJyqKYsX9Ew hI5lHfUmBXXnRZTi Z3SuzUKfGFevU760XRus FwV0FGJpqqQaD7XnBGCi lGceQmD3d8Z5Iw1TCAs2 XJ28NK82tNNna9R5 kAZ8E5BvRCYaqmdtrcpl yIC5FGTdLQExfV04Wy2r pHusPh7jZJJxISS6ALNn mJTsC6HlrL3iAmRu KQMjTOMrG5EdoKBbYHrj X249DItcUzV5TLOqduNd Q8HmCPGikJdkViP7z6T1 Kx5TYXMrTI06HCG7 nJW4YV44TN31G1MpVvtp dGFibGU+PHRhYmxlIHdp ZHRoPScxMDAlJyBzdHls PO1pJv3fZOXvLLMp wFvphESfQeOqp9riWAXa PPhcGO8ydJwtP1ZcmXZ3 LIRry3f8Ie79T41nI6Se dXA+VAMmmXQ5vWI0 uT8kOtBjGnX7HIfvR392 SpEzkEHiYpixq5mnv9ah jRj7AsY8YXJqrhJciAlf FBE6w1WsLf00M00p IHdpZHRoPSIxNSUiIHZh fYrvgi6noN6fEl6+PGNv pWM2yCD0sC7xSsOrSwM5 TRxvC450FyMveKGg Aioyp4xkb4ykfKt8GbYv PFTuxfEutAyaELG6g3Te Jv32P2ZauFwpt0VdWhh1 xb03uRSdb7P8mVM5 U0AwWXPtfqsdhXYpfZwe FS8aKZVeqiapGUYfdO0u TBZeO7i3XuOsLlX6QIab M1MgegY8OGXqqHQc QFoeDTT7F21dz1R7DQXf GHLlEMK4rWP2cO4ssXti bjogbGVmdDsgdmVydGlj CFzhHOjfU869KUDg hWuqLQMaaX0xDEQifTSc bXqrJV0rFYCusyrtNnWO Hv5IFzchP2LEXDGSXJAp TTwvdGQ+PHRkIHN0 jJxiYVzwEMDwhQ5sWJVo Y3x5NsNeEoF7TZijK6Pv DFVtyjsaZn86lG1tBmGz PhE0ZAwcS0PthnG6 EUDuhVXrLLxbEUV6Z38g b6O1DZAeCDKcNFH6fEM1 eP4ktMadtxyisVDlxTxu dmVydGljYWwtYWxp X201IHCnpHisYqGlRzZ0 QxN3ZYz7A7HjBxp8LGUq vDdzZT9vfBBjUAikAy8d eUbjwBxkCM3fSPYz dqnlGMArwU4gEPHhlDIy pAguSJ4xMOTvhftyd997 YcIkWGM0ZGDsiQTxH2Jx oB3rMlKuPHGjTIIh U7HerGCvVAnsV700PBya FyN0MHHhluNcR4QmYGGr gUkbUaE0n4M4Yn9aLBBJ ZWFyczwvdGQ+PHRk LIA0gDyjIOxwECXlyB9a PLXiO6w9PrBmCxF5UMef N0UtIXZfgzapKc09gH8x FhFuEaS2FIbbU8Ap iaF6AQVdyRWhJJypDHV5 R45ei7I3TJVcCTMnXGG5 hFB5lU4buQgblmlytPHm dDsgdmVydGljYWwt IHnzN594KVJzqNheUjRz bWFsZTwvdGQ+PHRkIHN0 sUtnBHowACTtfV9jSBZr K9r2KeWdBwB7TLqk H5IoOTNacbasJe14tH5z SbMmHxM1BHdmI1WoltM9 GMBfyJMaWIlnFFJ4P19v i0K7RXPzLDMcZOR6 aMM0mO3eqOlmnlbrpNAq dDsgdmVydGljYWwtYWxp C994LWCmfHybGe28wFYx aIjcciK0R5AyIgvd dHI+HU42VUJkYH33kLWt jRAip8kdfDf5RbRvIDAj CCL3uFerCZbcm7AgQPEx Z34gnNToj2P3ULXd uEnogILpOhFojTZ3kY8a PBeaeexfb9kglgmqKkkk c9aqnb82uW73C53vYYgc ZHRoPSIzMCUiIHZh sZbxjt0hbE1jTc6+PGNv rFQ0bYL4uH4uLcCeRzX7 OLszF030TmRwrUYxEabl r1uqg5fexGn1FyXk YHRvcmYcuIbcBAX5i9Rw Yv21H18zWHhbHHBrQHYu WMOeYNWhwYoakv0hqM2c Ii8+KY0wy3fzpc27 kV44uMR+XYJzCUL0zIeu YDqmUCWojD3bMSxgQtK4 VEPvCdGckY65jLYsXRfp Ze0kfRigsFscET7v ZOIqzqbsw531WsJre2fb ZRPyrGKrCUpfLLT8H74c e3W3SHVeUCJuDPE6nFO6 tJ2rbBnuarwpgIYu dDsgdmVydGljYWwtYWxp J113KRDhsKprBgTshGCj U4wmzmPGYC4lVxlqdJA+ MCFsEWH8aZcgNBhz NSIzrK8cVAYsL1g9PoSc KdQ1UQdfW5DniwL9XPFf ySJoNJEohQGOfU7fkgll d7pvwoxxSdBnMDWi NCq0HAm5TBMfkOfnPkOf LRT1IjV1JVC3bJItdR0f pCkhqyzjrL0pWaw+RklO OjwvdGQ+PHRkIHN0 xCxfPVogGRRydF6cBYOp H0n3IeFbGcF8RPufK5Qk ryO2QLUjoQTmUOKqoOQH xX1aizsfw9ofiocf YhXwUWMuZCo6LCt6BZLt rSadQeRmOKF0AnW2FEJ5 jQJhoD2jcBatuufvbJ3w Oyc+TVJOOjwvdGQ+ XLUjORH7jOxaFPkqLDIv mE6nQPYwS5x8VjMqMoY7 RMroB3YmxqE2ZKJsqSAy EJChqQIYuE8pbmcq a7otkgaxPrBsUHYbDDb8 EGm7IMWbsOkpWhKjWZR0 KpV5VYJ1mEOcaE4rxGhg qvcivO1dQhd+UGF5 VVS9WS37EF00P7ElJxxy dGFibGU+PHRhYmxlIHdp ZHRoPScxMDAlJyBzdHls JJ5aAc2aNYCpULSa bGxh (more content not included)... Normal [facility] RPR with Conf Rfxon 02-25-20 22 Reagin Ab RPR Ql (S) Non-Reactive Invalid Interpretation Code Non Reactive [facility] Comment on above: Result Comment: Perf ormed at: [facility] [address] [id number] PhD Ed Yeboah Performed By: #### 1 [id number] ####[facility] [address] [place] [address] Consent for Treatmenton Consent for Treatment [id number] #1.00CD:127 Normal [facility] Gest Scr Glu 1 Hron 02-23-20 22 Glucose [Mass/Vol] 121 mg/dL Normal 55-140 [facility] Comment on above: Result Comment: Posi tive Screen =1 HR > 140mg/dL Performed By: #### 1 [id number] ####[facility] [address] [place] [address] Hct & Hgbon 02-22-2022 Hematocrit (Bld) [Volume fraction] 33.3 % Low 34.0-46.0 [facility] Comment on above: Performed By: #### 1 [id number] ####[facility] [address] [place] [address] Hemoglobin (Bld) [Mass/Vol] 11.6 g/dL Low 12.0-16.0 [facility] Comment on above: Performed By: #### 1 [id number] ####[facility] [address] [place] [address] Physician Orderon 02-22-2022 Physician Order [id number] #1.00CD:127 Normal [facility] Vital Signs Date Time Vital Sign Value Performing Clinician Facility 05-31-2022 15:01-0400 Hourly [address] [facility] Comment on above: Result Comment: discharge instructions marixa townsend 05-31-2022 14:36-0400 [facility] [address] [facility] Comment on above: 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 05-31-2022 13:00-0400 [facility] [address] [facility] 05-31-2022 09:24-0400 Body temperature 98.06 [degF] Devin Pereira [facility] 05-31-2022 09:24-0400 Diastolic blood pressure 73 mm[Hg] Devin [facility] 05-31-2022 09:24-0400 Heart rate 49 /min [facility]in [facility] 05-31-2022 09:24-0400 Mean blood pressure 90 mm[Hg] Devin Pereira [facility] 05-31-2022 09:24-0400 Systolic blood pressure 125 mm[Hg] Devin Pereira [facility] 05-31-2022 09:24-0400 Blood Pressure Location Devin Pereira [facility] 05-31-2022 09:24-0400 Mean blood pressure 90 mm[Hg] Devin Pereira [facility] 05-31-2022 09:24-0400 Respiratory rate 15 /min [facility]in [facility] 05-30-2022 20:40-0400 Body temperature 98.24 [degF] Devin [facility] 05-30-2022 20:40-0400 Diastolic blood pressure 72 mm[Hg] Devin Pereira [facility] 05-30-2022 20:40-0400 Heart rate 61 /min [facility]in Pe[facility] 05-30-2022 20:40-0400 Mean blood pressure 86 mm[Hg] Devin Pereira [facility] 05-30-2022 20:40-0400 SaO2% (BldA) [Mass fraction] 97 % [facility]in [facility] 05-30-2022 20:40-0400 Systolic blood pressure 113 mm[Hg] Devin Pereira [facility] 05-30-2022 20:40-0400 Mean blood pressure 86 mm[Hg] [facility]in [facility] 05-30-2022 14:51-0400 Body temperature 98.24 [degF] Devin [facility]reira [facility] 05-30-2022 14:51-0400 Diastolic blood pressure 70 mm[Hg] Devin [facility]reira [facility] 05-30-2022 14:51-0400 Heart rate 52 /min [facility]in [facility] 05-30-2022 14:51-0400 Mean blood pressure 84 mm[Hg] [facility]in [facility] 05-30-2022 14:51-0400 Systolic blood pressure 114 mm[Hg] Devin [facility]reira [facility] 05-30-2022 14:51-0400 Blood Pressure Location Devin Pereira [facility] 05-30-2022 14:51-0400 Respiratory rate 16 /min [facility]in [facility] 05-30-2022 14:45-0400 Blood Pressure Location Devin Pereira [facility] 05-30-2022 14:45-0400 Respiratory rate 16 /min [facility]in [facility] 05-30-2022 08:00-0400 SaO2% (BldA) [Mass fraction] 98 % [facility]in [facility] 05-30-2022 08:00-0400 Mean blood pressure 111 mm[Hg] Devin Pereira [facility] 05-28-2022 16:40-0400 Hourly [address] Comment on above: Result Comment: Patient declines vaginal exam due to expressing not having any pain or noticable contractions. RN notes decline. 05-28-2022 16:00-0400 Hourly [address] [facility] Comment on above: Result Comment: Discharge instructions g iven and educated to come to hospital tomorrow at 1700 for induction. Educated on induction process and what inductions intail. RN answers questions from patient. Patient voices no concerns and agrees. 05-28-2022 15:00-0400 Hourly [address] [facility] [facility] Comment on above: Result Comment: patient resting watching tv with fiance in room. 05-28-2022 15:00-0400 Promise to Return Devin Pereira [facility] 05-28-2022 14:45-0400 Blood Pressure Location Devin Pereira [facility] 05-28-2022 14:45-0400 Body temperature 98.06 [degF] Devin [facility]reira [facility] 05-28-2022 14:45-0400 Diastolic blood pressure 54 mm[Hg] Devin Pereira [facility] 05-28-2022 14:45-0400 Heart rate 64 /min [facility]in [facility] 05-28-2022 14:45-0400 Mean blood pressure 68 mm[Hg] Devin Pereira [facility] 05-28-2022 14:45-0400 Respiratory rate 16 /min [facility]in [facility]reira [facility] 05-28-2022 14:45-0400 Systolic blood pressure 97 mm[Hg] Devin Pereira [facility] 05-28-2022 14:00-0400 Promise to Return Devin Pereira [facility] 05-28-2022 13:00-0400 Promise to Return Devin Pereira [facility] 05-28-2022 12:00-0400 Diastolic blood pressure 53 mm[Hg] Devin Pereira [facility] 05-28-2022 12:00-0400 Heart rate 50 /min Devin [facility]reira [facility] 05-28-2022 12:00-0400 Mean blood pressure 66 mm[Hg] Devin oLrenzoten [facility] 05-28-2022 12:00-0400 Systolic blood pressure 91 mm[Hg] Devin Lorenzoten [facility] 05-28-2022 08:47-0400 Body temperature 97.7 [degF] Devin Pereira [facility] 05-28-2022 08:47-0400 Diastolic blood pressure 59 mm[Hg] Devin Lorenzoten [facility] 05-28-2022 08:47-0400 Heart rate 64 /min [facility]in [facility] 05-28-2022 08:47-0400 Mean blood pressure 74 mm[Hg] Devin [facility]reira [facility] 05-28-2022 08:47-0400 Respiratory rate 18 /min [facility]in [facility] 05-28-2022 08:47-0400 Systolic blood pressure 103 mm[Hg] Devin Pereira [facility] 05-28-2022 08:45-0400 Blood Pressure Location Devin Pereira [facility] Encounters Encounter Date Encounter Type Care Provider Facility Start: 12-02-2023 End: 12-02-2023 ambulatory EARL ZELDA Not Available Start: 11-06-2023 End: 11-06-2023 ambulatory EARL ZELDA Not Available Start: 12-18-2022 End: 12-19-2022 ambulatory Kaelyn X Orzech Facility:[facility] [place] Start: 12-18-2022 End: 12-18-2022 Patient encounter procedure Kaelyn X Orzech [facility] Start: 12-04-2022 End: 12-05-2022 ambulatory Kaelyn X Orzech Facility:[facility] [place] Start: 12-04-2022 End: 12-04-2022 Patient encounter procedure Kaelyn X Orzech [facility] Start: 11-28-2022 End: 11-29-2022 ambulatory Kaelyn X Orzech Facility: [facility] Start: 07-11-2022 End: 07-12-2022 ambulatory Devin Pereira Facility:[facility] – [place] Start: 07-11-2022 End: 07-11-2022 Lab Drop off Devin Pereira [facility] Start: 05-29-2022 End: 05-31-2022 Evaluation and management of inpatient Devin Pereira Facility:[facility] – [place] Start: 05-29-2022 End: 05-31-2022 Evaluation and management of inpatient Devin Pereira [facility] Start: 05-28-2022 End: 05-28-2022 ambulatory Devin Pereira Facility:[facility] – [place] Start: 05-28-2022 End: 05-28-2022 OB [address]riage [address]in Pe[facility] Start: 05-21-2022 End: 06-24-2022 Pre-admission assessment Devin Pereira [facility] Start: 05-07-2022 End: 05-08-2022 ambulatory Devin Pereira Facility:[facility] [place] Start: 05-07-2022 End: 05-08-2022 ambulatory Devin Pereira Facility:[facility] [place] Start: 05-07-2022 End: 05-07-2022 Lab Drop off Devin Pereira [facility] Start: 02-22-2022 End: 02-23-2022 ambulatory Devin Pereira Facility:[facility] [place] Immunizations Immunization Date Immunization Notes Care Provider Shaun mckeon 01-18-2013 hepatitis A vaccine, unspecified formulation [employer] [facility] 09-12-2010 meningococcal ACWY vaccine, unspecified formulation [employer] [facility] 09-12-2010 tetanus toxoid, reduced diphtheria toxoid, and acellular pertussis vaccine, adsorbed [employer] [facility] 02-23-2003 DTaP, unspecified formulation [employer] [facility] 02-23-2003 measles, mumps and rubella virus [facility] 02-23-2003 poliovirus vaccine, unspecified formulation [facility] 06-27-1999 hepatitis B vaccine, pediatric or pediatric/adolescent dosage [employer] [facility] NEGATED: Highlighted row has not occurred!11-28-2022 influenza virus vaccine, unspecified [facility] NEGATED: Highlighted row has not occurred!11-28-2022 SARS-CoV-2 mRNA (tozinameran 5y-11y) vaccine [facility] Payers Date Payer Category Payer Private Health Insurance [id number] 2020 Private Health Insurance [id number] 1997 Unknown [id number] 2.16.8 [id number]. 1997 Unknown [id number] 2.16.8 [id number]. 1997 Unknown [id number] 2.16.8 [id number] 1997 Unknown [id number] 2.16.8 40.1.078324.3.579.2. 1997 Unknown [id number] 2.16.8 40.1.072017.3.579.2.7 1997 Unknown [id number] 2.16.8 40.1.974141.3.579.2. 1997 Unknown [id number] 2.16.8 40.1.971354.3.579.2.7 1997 Unknown [id number] 2.16.8 40.1.910343.3.579.2. 1997 Unknown [id number] 2.16.8 40.1.044525.3.579.2.727 1997 Unknown [id number] 2.16.84 0.1.585977.3.579.2.1259 1997 Unknown [id number] 2.16.840 .[id number] Social History Date Type Detail Facility Tobacco smoking status No Smokin g Status Entered [facility] Sex Assigned At Female [facility] Start: 11-28-2022 Tobacco smoking status Never s moked tobacco (finding) [facility] Tobacco smoking status Never [facility] Functional Status Date Assessment Result Facility 05-29-2022 Functional Status No [facility] 05-28-2022 Functional Status N/A [facility] Clinical Notes 05-07-2022 to 06-04-2022 Note Date & Type Note Facility 06-04-2022 Note DATE OF DISCHARGE: 0 05/31/2022 The patient is without complaints. Positive flatus. Positive void. Vital signs are stable, afebrile. Breasts non-tender, non-pathologic. Abdomen fundus firm and below the umbilicus. She has scant lochia. The perineum is intact. The patient is ready for release. Good instructions are given. The patient is to return to my office in six weeks. She is given the following prescriptions for her home use: Motrin and vitamins. DISCHARGE DIAGNOSIS: Vaginal delivery. Course: Complicated by need for Fluoxetine. She had a Cytotec ripening and spontaneous rupture of membranes. Intrapartum Course: Pitocin augmentation productive of a 7 pound 14 ounce male infant with Apgars of six and eight. Approximately a minute and 40 second delay from expulsive efforts, minor shoulder dystocia. Course: Without complication. Devin Pereira M.D. eran Dictated: 06/03/2022 [id number] Transcribed: 06/03/2022 [facility] Comment on above: Result Comment: Elec tronically Signed By: Kelli DEMPSEY, Devin Collier\.br\Date and Time Signed: 06/04/22 08:08 EDT 05-31-2022 Note The following Patien t Education Materials have been given to the [facility]: [facility] H[facility]PITAL REGULATIONS : All Positive and Important Negative Findings Shall Be Recorded DATE ADMITTED: 05/29/2022 TRIAGE NOTE The patient is a 25-year-old 1, para 0, AB 0 white female who presented to Labor and Delivery with spontaneous rupture of membranes. Her course had been complicated by need for fluoxetine, otherwise relatively uncomplicated. She had a gentle Pitocin augmentation which allowed her to make gradual progress through the latent phase of labor into the active phase of labor. She reached complete and complete and pushed through the second stage of labor. Please see records for details. Devin Pereira M.D. Dictated: 05/31/2022 [id number] Transcribed: 05/31/2022 [facility] Comment on above: Result Comment: Elec tronically Signed By: Kelli DEMPSEY, Devin Collier\.br\Date and Time Signed: 05/31/22 09:16 EDT 05-30-2022 Evaluation + Plan note Extrac noy from: Title:Post-LDE Author:Jose Miguel Garcia Jr., DO ate:05/30/22 Plan Transfer/ Discharge: Condition stable. Extracted from: Title:L&D Epidural note Author:Omaira Garcia Jr., DO Date:05/29/22 Impression and Plan Plan Labor epidural at request of patient.. [facility]07-06-2022 Hospital Discharge instructions Follow Up Care 05/29/2022 07:05:03 With:Dr. Pereira [phone] Address:Unknown When:6 weeks Comments:Call for any problems. [facility] fever>100.5 F, heavy bleeding With: Services [phone] Address:Unknown When:06/03/2022 14:00:00 [facility]07-05-2022 NoteThe following Patient Education Materials have been given to the patient: [facility] Discharge instructions Follow Up Care 05/28/2022 08:38:04 With:Devin Pereira Address: [address] [place], [place] [id number] Business (1) When:05/29/2022 17:00:00 Comments:Call for any problems.Return for contractions closer, longer, and harder.Return for decreased fetalmovement.Return if ruptured membranes or vaginal bleeding. [facility]06-14-2022 Evaluation + Plan note Diagnostic Tests Pending * Group B Streptococcus colonization by PCR [facility] Future Scheduled Tests Radiology* US Abdomen, Limited [facility] No data available [facility] section [facility] No data available for this section [facility] No data available for this section [facility] Summary Purpose Family History No Family History Records FoundNo Family History Records Found Advance Directives No Advanced Directives Records FoundNo Advanced Directives Records Found Additional Source Comments Care Team (unrecognized sect ion and content) Personnel Name: Shanna Daniel DO Address: [address] [place] [address] Name: Carlie Leon Personnel Name: Shanna Daniel DO Address: [address] [place] [address] Name: Carlie Leon Personnel Name: Shanna Daniel DO Address: [address] [place] [address] Name: Carlie Leon Personnel Name: Shanna Daniel DO Address: [address] [place] [address] Name: Carlie Leon Personnel Name: Shanna Daniel DO Address: [address] [place] [address] Name: Carlie Leon Personnel Name: Corbin Henley DO Address: Address: [address] [place] [address] Name: Carlie Leon Personnel Name: Corbin Henley DO Address: Address: [address] [place] [address] Name: Carlie Leon INFORMATION SOURCE (unrecogn ized section and content) DATE CREATED AUTHOR 12/27/2022 [facility] DATE CREATED AUTHOR AUTHOR'S LUIS QUIGLEY 12/03/2023 [facility] FOR RECORDS PERTAINING TO PATIENTS WHO ARE OR HAVE BEEN ENROLLED IN A CHEMICAL DEPENDENCY/SUBSTANCEABUSE PROGRAM, SOME INFORMATION MAY BE OMITTED. This clinical summary was aggregated from multiple sources. Caution should be exercised in using it in the provision of clinical care. This summary normalizes information from multiple sources, and as a consequence, information in this document may materially change the coding, format and clinical context of patient data. In addition, data may be omitted in some cases. CLINICAL DECISIONS SHOULD BE BASED ON THE PRIMARY CLINICAL RECORDS. [employer] provides no warranty or guarantee of the accuracy or completeness of information in this document.
[2023-12-17 09:54] LABS: Thyroid Stimulating Hormone 0.035 uIU/mL (0.358-3.740)
== END 2023-12-17 08:48 | disposition home or self-care (01) ==
LOC: LAB 08:51
PROVIDERS: Visit Provider Obstetrics & Gynecology
DX: R79.89 Other specified abnormal findings of blood chemistry (principal)
CPT/HCPCS: 36415; 84443

== ENCOUNTER 2023-12-31 20:42 | Outpatient (REF) | payer OTHER, SELFPAY ==
--- OUTSIDE RECORDS SUMMARY | 2023-12-31 20:45 | XMS_ITS | CCD ---
Author Name Unknown Address [address] [place] [address] Organization [facility] Care Team Providers Care Supervisor Inspection And Testing Name Role Phone Shanna Daniel Primary Care Physician Carlie Leon Unavailable Unavailable Corbin Henley Primary Care Physician Devin Pereira Admitting Unavailable Kelli, Devin Collier [...] Unavailable Orzech, Kaelyn Brooks Attending Unavailable ZELDAEARL Blanca Attending Unavailable Medications Current Medications Medication Drug [...] q6hr, # 15 tab(s), Refills(s) 0, Pharmacy: [facility], 154.9, cm, 05/29/22 7:54:00 EDT, [...] day, # 14 tab(s), Refills(s) 0, Pharmacy: [facility], 155, cm, 04/25/20 17:23:00 EDT, [...] Range Facility Coding Summary.on 12-24-2022 Coding Summary. CD:[id number] Gh0bWw+PGhlYWQ+PE1FV XXsO05qpKSaxJ5KL8iGN T6MZGEVSMAEXN4WSY3jy ZY8LQtvL0IwcgOj NdhojGNfDS07OXj7XKD1 zKgeTOqgcF5lhDFkA9i8 FgZaQL93rY81QRxyDNWm MtL6UzMxsqjdsYWa I7ofDrBrrVMqYpv+PHRh YmxlIHdpZHRoPScxMDAl HpRvhGrjAD7aWo5mKOLo LWNvbGxhcHNlOiBj s5jwDGCrFBvaFG0pxBfj M8FfhVO3HIXjh9x0Hx62 dHI+YNSuWEJ0wHbfTUjj b679VzHnr5xnBFV9 zTUxBIkjJHP9M28nq6B0 KOKqQARuSNO4hAA5dE0h gQdxisllN5ZmfRWqRsP9 XKP0mPThhM3tgIyy fszinU3fEqn+K89NLX7F EJCUUO7OHnu2Q9AkNsmd dHI+HA58BJRzWJ41tZLj pBVjf3tssSp3EgTh SMCiLFM1iCefLYkhy3Wn LGQtJ55duYDun5P6QGOe vTiujZXhNdOyxJE3dQ3k MGgwocszm9wcwtzi Pyqhx4xzdr71aJ76P04x IQxmFPHbLCQ1EYZcGJXu eEfmnj6wdZ6sCc5+IDxj f3fin1kdqSl2XvKy JKNgjmYsiKtwDUB0r7Gq Pr91S9LiqNhct0KsJyo4 eh56kKZly3F5wDQ6GVbq MODzjD0dQDvbCyJ1 FLTxXeVptR40hDItAUwp Na5hcDxjbVybTH8hPFRs styoBVMjhW5tMYMysPLd sQqjGF9rMONfxqlx h208OgAtVHH2GVAdzCNn E2ZtbL4fStYkVXCzXCZx X0XbaIIfUKkeS427VMrv PzB3HAYnflZrZ8Ds QVQqcRvwHlU6z0Y0Bz0P a5YbbqimTRX9HWevWWIb JaZxPvScQoE9F1PbUav8 PEPurCugHD7gQ9Fi WNLchrjvkghotXC7LYGj PXXbsI46tAJpLXfxTz1m k6K3i462SUSiBRSevL58 Ib7ofIvvBPPejTXJ wP3bcmjac6czomaeGfTg NVWlZMe9XJe9MEHwtWcs NmWtMPD1IbS2FDN5xKWm vW8mdWvbftqthL2o Oyc+N67idM1yULG7OPU6 chrrFMGpnlXsHV01LD08 A3WdLeorxJOooCW+PGRp moHwyFdbKE2cDvHv j2yau6QaFZzrU7AsLYXs RPeiZmd0WEKwAUI3lYD3 qJ2bSXQhDDpgd6N0cLR5 K8KkypRuym7qr2xs LNVlNHgaQ97saMGqt7C6 VKVsmAR5YWHgxNmvByLg bK62Jbe+CPThdWsda7Sd Lqphr6eoz8vhuFa3 IjMwJSIgdmFsaWduPSJ0 y0PpCi58H95bMZdlBUKf KPLsNVMaKIBkmJkbkj3l qE4lCl5+PGNvbCB3 lBA7iS2vCINpYiC8HItf M308RtLqkZGyWrulu5uf d4muaUc0ZvLkTWZhgwPy oFyvDIO3l6SkQm00 S97aJDzlZRDlCCApDRTb FCNymKieda2qpN5hYu2+ PN7lm1cmew28fO09jAQ+ HXEhXXZ2aHexJKor WKTgdP2mYCvwFtQ9XCYy BzLlhS82jBHbVPjuRk7s kPfisUclTW6vGPWvijtl o638DeZnk9btQVWd vGRnBXtyWXS0L36la9U2 ZNGmAXVzEEM1yHO2iX6g bGlnbjogbGVmdDsgdmVy uXyvUFwgJZypK302 IHRvcDsnPlBhdGllbnQg FwThKCi5M9UyPau1AGLs cKxzVU1reICaKNvwRu8d kXjmoQkeIU3oAJAf gxeax861WjVno7alDEOx bDCfLYogBSD0X35pl3W1 MXKpUYPmCYE3zOH9vD3e bGlnbjogbGVmdDsg sxVqeKvcFWmnCSajN228 IHRvcDsnPkJpcnRoIERh yNV1AM98CG71iOMtp0K3 wDI3Y1XmDKVktkby wwlafNB0JTHaHJZieK58 Ij9lkGqeVd7aDRWdFDY3 EKCvqYQwT7RqdB8dWdWb BDTnCSApE0OajUHu OIazP128YMkyUdD6MWFz zeOlG6PrKZYvtCgpRoB4 f9P6Xv1WA3H9FA80UZ62 fMAys3K2qNP1C0Sx NVLnaozzcpmjiEY5OUKz MGTtjP08Wc5hxGuhOx8v TXFrUXJ5WGXdoIFbO2Og cA6dXoQaPVNdYJBs R1IroWFeYYwtP987ZGyx SsP1FXPeysVnK6BgRGSi iEdoJmG2x2Z0Tg7GINi4 NF86VK18iYAmh0I9 sZA8F5OmWAPuegksvbpv fVH3WMFjZCNhpU61Gy6j rEnvYm7mAZHcWAU6VYEw qGNyI2CbmV1bAwWw FOSiGRRlC0XyhQKjAFkq F996MXlhWlR8KCDcwnDy I2JsVECceSkuOhM1s5Q6 Hn2HMGHqGF28CVE1 lKL7ZL40ID67T3VqWehd dGFibGU+PHRhYmxlIHdp ZHRoPScxMDAlJyBzdHls SF9mIw1oSZYxRWPb lWccbQGgCiCzd3jvOTLo YJscAS2owQyfV1CviQU2 OXRss3c7Oa22D26dP2As dXA+IUTfuPW1gBF0 uR6xYxFoGfH6LPoiF362 LvMdbOCoWzzlt3ymb9xx gRz6JkY6BMWosuSdjBqi RQG2i4FpOd53V04x IHdpZHRoPSIxNSUiIHZh eGboon0azE9jFl8+PGNv tYY8pHQ2gN6cBhJaRqK0 XMjcJ723QkJwnHAu Hsekt1eaq0mujMt0HcMa HSXepxDqwKkzCJU9t4Wi Yn60T5UdzExtg9JpWxm7 el56yTPfl4S0sUL8 T9DvIAMqsrlyfTBrlGkj ML7dLBEwcbzxFICndB1k OYVtF6l7OqIpCzF4YWbm U7YpgqX3JFEimYKt YHlmZYB6P62sr7O8RXNl LPDiUZF7mDI6aU4rxIog bjogbGVmdDsgdmVydGlj ZZztYFfdV545JJXr fGdyJUEloX2uMSAjaKWs oYbvWF1bNEHmvqeiRpRJ Cr6AUzzyQ4YOKPVIZMOu TTwvdGQ+PHRkIHN0 oQyyGPtfMHQlcM6zVUTm D9u0EbKuKpF6ZZjvA3Au FNUpqucaGa42vC5yVtWm VzW1EZeqG6EoniR8 ZESdwWRmFHesALE9X55x c7E4PPVcTZQkWUP3dZD8 uW6nwZvqlguloXGooKzr dmVydGljYWwtYWxp O182XLGabMcmVeCaTuV7 PhN5PLv5J3YrJzt0XLHl jGoqST3enFRzZMqsAm6x pTezmBsvAN2kXYZd ctyyHTGxpG2bYFFzyOJo vUxwDI6jJVKddrrof952 MsJgQIB2SFAqwRBzI4Im lB0yWiUiAPVhTINs D1ZdrFIhMRhfC630RYot BfU5AIUxfvDcH0GxGTVj dBbrBuH9v8Q3Fs2eYUQS ZWFyczwvdGQ+PHRk QXJ5pBduCNqjEXIbeM4q VOObJ6a9CjFzRwV1UIeb C8MoEGRsklzlEn91nU5k HtPhPwU6ELesY8Pp ksV0DNKonWNyJEypALQ2 Y60ax8I9QLPmYIBnZNU8 kXU6hA6pbSkwoaytpEUe dDsgdmVydGljYWwt AMfeT941BJPopItvIqYn bWFsZTwvdGQ+PHRkIHN0 qOqmCOrrNOIcmJ2sOVMu O6e0JpLiXpP4LXbt V8GzHJQuypuyYs40dQ5j FjGpXhD5VKrsJ9UrhuT2 IJZyuYErTTbiUSH7I83b x5Q4WJBkNGMvEOW8 yCN8cG7nrIuxkeyqvTKe dDsgdmVydGljYWwtYWxp V377MHNawCgtZx48tMRz jYpmzfX4M6KzMdqd dHI+KN76KLEnTZ89jZIt qIGob2wssLg6IdSqDGTh WNN9sMvpGHdxv5DiBRGw Q03cxEAep7F7LSRe lAjjzJLjWdQseTM8qE7m YXvcdftab7mwxcoqRasd w2ewbe76rN92E12bSKhn ZHRoPSIzMCUiIHZh sUpzcd8ftO6uFr4+PGNv yVA5fMC8gH5tPkRbVsU9 NVntA051QsHgmCZdIobs r1oxp5oqxBc7AvSf QQDltaCiiKkpEQM0d7Ow Uy42N04jNCzfTKJfFFFh PBQmCTMmjVqudb6apM4f Ii8+RT0ml2hjln83 aD46jQG+SPHrBUP7eJev QPqfZIMjcC9nJIpiCvU9 ANOjDvYyuM29zJSmIClt Os0pjHowvWgcNT8g YSMxlccgi622ZkNxq6nt WDAwyUJiJCueDWF1B32w m6F5OSCbNFGwZRL8zVT6 cW3xjTjtxdfakMEi dDsgdmVydGljYWwtYWxp S484WNDkfVikJvUmjRCi G2otppYKDG3iEexaaDL+ OREbEHO3jAgfVQih QEDqiY0pUNEhY8g1JlDv ElV1VYfnH6KcqwL1XNXr kUMgBAQvnGWXyJ3ulgci s5miguoiHgXrTGRn GEp2AXs4FXLzfZmuUyFq RFZ1HrR6UPG0lXJzyV2b zBlpjpsdfB8aQif+RklO OjwvdGQ+PHRkIHN0 sLswOZwfSOFnnP5cCXMc B0b4IeZqXkK7VXrrL1Xd pxD7HPVnxPSoQDUctHDW pC0pyfdjp0dkssdr HnZpEFZrYDb6KLi8FAYs sMmmDxMmFDM7BmK7FTB7 gNPinR8jaVrbdheaiE5e Oyc+TVJOOjwvdGQ+ BGUlJPQ8rOffKNldQCZs kS8lCREcI8x0LeHyOnX4 YJtzE9SliwV8BWPfkUTv GSTifQPGwO2ahgss h5lsusnxUxUiRWUsIMg5 PNj8IVVgpQwvBnPmXUN7 SgH9DQG2sICpwP6lcMzb shscmC7tGwv+UGF5 MWQ6LW15LI70V7EqFajy dGFibGU+PHRhYmxlIHdp ZHRoPScxMDAlJyBzdHls ER1lZt0oUOOmENDg bGxh (more content not included)... Normal [facility] Consent for Treatmenton 11-25 Consent for Treatment [id number] 30 [id number] #1.00CD:127 [facility] US Abdomen, Limitedon 2022 US Abdomen, Limited [...] Meier MD Transcribed by: STEPHANIE Technologist: HW [facility] Consent for Treatmenton 11-24 Consent for Treatment [id number] 30 [id number] #1.00CD:127 [facility] Family Medicine Office/Clini c Noteon 11-29-2022 Family [...] [address], [address] [place] [address]- Additional Instructions: Patient Education Cholecystitis BMI for [...] Alcohol Use, 04/25/2020 Employment/School Employed, Work/School description: [employer]. Highest education level: University degree(s)., 05/29/2022 Home/Environment [...] vaccine 06/27/1999 Recorded Date correction Normal [facility] Comment on above: Result Comment: Elec tronically [...] care after the procedure. Medicines ? Take ucsz-kyd-myhynbz and prescription medicines only as told by [...] 11/10/2006 Document Revised: 03/19/2019 Document Reviewed: 03/19/2019 [employer] Patient Education ? 2019 [employer]. Nutrition BMI for Adults Body mass index (BMI) is a number that is calculated from a person's weight and height. BMI may help to estimate how (more content not included)... Normal [facility] Coding Summary.on 07-17-2022 Coding Summary. CD:[id number] Gh0bWw+PGhlYWQ+PE1FV QMnI89qqWAcvH7WV9aAW G2XNWUHLSWASE0EEQ3dt JE5XFzzT4EbriGg MbcudPNgNP90PXw3FOI6 wHnvCUuwtV8aqIIxE6v6 MeJkIO16wF54TSkxTAKf PhO2BsMxavglxVRe Y1quHgKskECzHif+PHRh YmxlIHdpZHRoPScxMDAl TuWkhOheQK1xFp3mDXJt LWNvbGxhcHNlOiBj i0ntVVBpTFsjUB6umHlf L6OhcDV3NNEji5t4Aa29 dHI+VJRpRVS1eKpdXMco w579PhEzj7lbNYA4 tAGeTJbgMPE1E83sy3P2 CPYaVGWsHXK0hKC7xH9o bUmpivwtJ5ElxJZfQdT4 ZQA8kWDeeM5kwTyk szfxnI5kHar+C76UMS0A CDHOVM6NHdz3O7TgWiip dHI+AI34CIHuIJ88yAOb oUGxh2wkgYb0PwWy XQJgKLF7wUgsPFcnd4Ej BFYoP27guRWar8M6RSGc sUtrrKEmSmVcoQF5rC8t FTsjcrmxu5ayvdnz Uiejs5rmia66iH54J64t PIajSHKzTMX0RNZtRMLs lCddnx7mvV4mTv7+IDxj c3lkl4mctGy4LpUs AGNxonWunMccCGD6n2Vt Mn40C9AjjCagn9MjChu0 vv20mKIll2F0fKZ8ZStr ITSlbF1wGNfsHfF9 GOZxLpUcdJ81bRGbIMhf Lm2wiPulnPdiML6jAWJy dsfzONVnfW6tODComVSv lNjbBB9cQQEquwes j855ZdTeJYH1RTZfeIOq R9WasA4mCsDlFWJgYBFy G5GkiKAvEAllQ946IHdm RwS8GUJoalDsF4Vt ETJyoQxlDyK5a8Y8Iq2V f0PtrmwuBCY4HOovPBR5 LfR6GnBsSkI3J4QtRvf5 VJWwzHzfAQ6nR0Te DRUceawoxomzjMM9FVSu BAQfeB76nMVnQHtyPz4s c6M5t158QCNyGSWpeJ26 Mc6luZcfQSOkmLZU eZ3tphhei3bgkkbhKeJk ITEeTRg8PSr2NWCfhPia WwPwVXV8EmA0XWZ2tZWg dM8swAeqtuagsA4a Oyc+U91qlH8iOTM9QBK0 rbcwFDDwpdLmRU93RS64 H0MeAclviBKlaYM+PGRp ekNgiKwoOQ1bFaHm t9sad2SkCQvqN1EpQQEu TOxoSnd9SYMgQFA8bER3 oL5cUOSuHLxdt1F3aKB0 H8GbwsNqij1om3dp MTCjSDyoX41jqWBxb7D5 OEMjyDM4WXHchOjcEbPx cU36Ayr+HTPhxQcwd3Iu Qlfvn8yce8gflSt1 IjMwJSIgdmFsaWduPSJ0 w2ThKm31M78eDPioVIUc YKDxSDUeBUKoiMfoss9u cO0vJg2+PGNvbCB3 vPI9mM0pPPYzQpQ0DGst S297MdUopNYqIdrwl9rf n2hoxJq5IwXkVENxhcSh tDjyXSJ7t2GfAb88 Q62uZSbdMMGgJJRqMCFr BUXwtXiric4xzE9cCt1+ RQ5ql1xofo73yM86hWR+ BBRzHSI7xIxhAAwz YKSojQ6wUUmtHhI7MJTc OiBibO39bQPyNJisVv5o mDfwsEclJX6qGQUsvizp d404NhDki9nxULIf cJNzHPsuVJP9K08ok5E4 ALFuTDNrEJM4bMR0yF4e bGlnbjogbGVmdDsgdmVy yLafHHrzDOhaE338 IHRvcDsnPlBhdGllbnQg KfIlDFh6N3CkMnm8IIQn gEajFP4xqHYcIKleYq2g rDcogNflZJ2qLRHm dhpqk625CoSjw1syLWEe yDSwUXzwYDP3J16ix2K8 QBAaRCOzNWJ3qHX9xP6x bGlnbjogbGVmdDsg peFapLbwAFucXQpiO086 IHRvcDsnPkJpcnRoIERh rKC7IO92XS67bPSin3B1 aHB3J8RtETHkvwhz yprtjIL3JVWdTOGhjV76 Fy2duKxcYd3iAWJyFOZ8 OLQgzMGnU8HprV7dGhQq TASwOTBmJ2DmsOMf MAqwK741PSoaEiQ6ICIe liQlM4YoAKDuyMemXoG6 o1N8Ir3UN4A7DP79BJ84 aJZvf6E9pLZ5H5Vu NOBdtxwzbaxzrVR1LSLr IAItkV33Ca1hzEbdEi1c ZLTfASK6ZSHsmHYaB5Wj yW6zBiQxLEXtBCVo N5MkzCXcPAufY514LBwh LcM7RXLyhgHqQ5MxVDKe nWqzDzW3n0F9Sy1SNLo5 JE64TG30iJYrj8Y6 nGX1M8DjLPKqgwfanazh jYN0XKSuCHWcvO71Bw1y nSgfAv5tYSWwKZJ8NSKv hDCiK4LwqJ2qPsMk NOVfGOJtF4ZriOCiSWgj E629MNetNiU1ECNxrbIc Z7BjFJYsqIgiOeS0j8Y9 Yh4YCNEgGN39QKK0 uBT9TL38HZ38P7LwRnug dGFibGU+PHRhYmxlIHdp ZHRoPScxMDAlJyBzdHls JF3dAi8eCVOeFLIg aHqpwNFhIaDfz7adFNKk SCulCG3utVvsJ0YkhSQ3 RLEjg7w6Kb50B57kW3Uy dXA+YOIybZL5uBZ9 oN7jBmTzUkV8OGkhF364 BcSdyYGuNtxup3bxe5lx yOl6DpR5TAZdygVbxXyd PGE3z2RaYm16R84e IHdpZHRoPSIxNSUiIHZh kRrkst6ojJ8aAj2+PGNv vEI0vLK6aZ8zKwCnYlN8 EQwmO338PaNpgDFb Fprrr4ayl0booIp0HdJa JLMdzvZqnReoNOU5l3Tp Nq64M3JyyHfba2IhTge2 el67tCFsx8E9iDT3 M9FpIQKbzntxjGKqoTfc HG9gGUHxvvwtTPZctL9j KGHuY4n0BdFcWvT8YNid Q9SrlwY7QHBakAYw XEmaGKH4F17rc6X1HUXj EOKkBBS6mXW5fK4nhKfd bjogbGVmdDsgdmVydGlj EYzdEVvnQ664FMRl hMroKBSqeW9aEYIflJXa tGgbNK8aXTTbhmwmJvHG Dt0NYzgtF4LCOKTAFTLu TTwvdGQ+PHRkIHN0 kQqxUPivHWKbhR3cTGQt R7g7TpItTzC0MVfbY9Qd RMNnhjxoYi04iM9uReDv MxT3YMwaD5UwwfS2 FSKlvPUkXYnzIGD9S33g y0G9PZSdUWKqEXN5lKD8 hM9vrZztoenywJUncZfg dmVydGljYWwtYWxp N406DBUhbUkiGvMqJhD1 RjK3TAc3M7UfCgb0SAIf jMqoRR3kpCZeMNyeDo7u dKijzLjeGT3aKDDv iscvPMYbwF1cDTPitEQi qGkeDO6cEHShrlcpo438 XaXcILE6XSWqgAAxQ8Ki jA5tRxTgNMKgXSYd N4PmkCMlMExxR245KQjf DpM9HBSzrsHoM6PrSXRt vTcbRdX2e6H7No8eNSWT ZWFyczwvdGQ+PHRk FLS9tWppVSbzIXKmyC5b CDHoC3r7UwUkJeF3AKmp X2JhQTIjqqnpBa23zA6n CqIfAnI9ADxlU5Hs sgL2XHKetLSzRAleEBS5 J80gw5A7RDCrJNHbNUE7 pBZ1cU0tlPfrvepikMLm dDsgdmVydGljYWwt PNtfZ101UMRkvOsnHqBz bWFsZTwvdGQ+PHRkIHN0 vPosBMhuNNUwpQ8bIBLt T0k2NlZcYmH4LCmh H1VhEZGxldjnWr17nK4q MeJpQpE7GLewO8NwziQ3 QENeaIMxQDmkVNL1M00m h4G1KQUxIOSgEXM7 gNH2cJ4zuNskyujhsKOt dDsgdmVydGljYWwtYWxp A561ESBrjRahTaanPxFG uw5vLT4gNyqqpQJ+ RQ87db52C8UkXmotNpd6 FXHuBHG3dDQ5wB5mXVYt XZnyj8P2hNV6Z2CtrsSh ds7ja5heYSWqCPge C23giMDso5X9ORGxwSW2 PJYuqAjjQoXyvE14Fzp+ EUUvhUkwk6XpQbccn2fy f5fkjCk1CsUxPRQo vyWslJvqMMN5h8EsSm75 X10nFDdqSYJzDYQdIYCb FLVfwTzrek4emA3rEf0+ UETxrVP8wKI4zF2s HgAfYcE4RHubZ208ZhIa sXGjBjceo2zyu2alnLz5 IjIwJSIgdmFsaWduPSJ0 c1SgPk83V7VemUsl c2EeKad9pe76lLOam7P6 eDW4Q7TgGMBpaxdpqBVb jDpfBX1fSCEljmowUGTe iQ3aBHHgS4b9UmSd AvH1EZipD3UbglX2WETx iGFgQXKchKEEhV3ufixt y5dxpvwgLoUwARTaIVu8 PYr3NBWtqKxwPfUl DQD1IwH6TQG1wDXseV8z mUfobmlatG1eAft+UGh5 q1sovBDbGA3flEB4NI81 SB72rZWzs2D6sCI6 R8FxUSQqcymmqoypyEU6 WBCjLNFpaN98Ru1kmNsw Er6vXPZhYYG3ZSExwTQt V2KmvT2eNwXdCHEx KDJkN1KfuYSmHGhwI270 PGlbLtX7TTTeljDaC6Vs ZFKqfCbxRrM1i7J0Vt1H CD87JB77DZ60vLDn p1W4aWZ8J9QcRDHxxmhe uskzfYL6HCGrDTBzqL13 Ro2zcJqpQm9hNMMwQTW9 TONirSJyM6GfqB8e FnDfGHBuXHUjS8CzqEBl VCmhP860IJtrOiG9KJFi nqXxW7MdOKWmnTbuFmO6 s4A9Xp1ITd33KG18 PM53hGZjz3R7mKS1Z1Dm TPDyekzgkwoueKM3LKCd JVNwrZ09Ei3ytWwxXe2p KZHdTJZ9ZXSumYGn U8XukD2lHdFqTQNqZBMb V5OugEHdBPruU324RKwh IhN6VJSwoqPbV0DaQVPz bHrkVfU0y7K0We7W UUnxsix3W4IcMrldjAH+ BJ92VKGbBQ44cHJfxOHf j7afuOd2SxFjHXMcYOX3 xTmfKNgkc2XbMSNc Y29s (more content not included)... Normal [facility] Lab Miscellaneous-LCon 07-17 Lab Miscellaneous COMMENT Invalid Interpretation Code [facility] Comment on above: Result Comment: Test Ordered: [id number] IGP,rfxAptima HPV all,16/18,45 IGP,rfxAptima HPV all,16/18,45 Note WB TESTS RESULT FLAG UNITS REF RANGE LAB Clinician Provided Cytology Information No. of containers..01 ThinPrep Vial DIAGNOSIS: 01 NEGATIVE FOR INTRAEPITHELIAL LESION OR MALIGNANCY. Specimen adequacy: 01 Satisfactory for evaluation. Endocervical and/or squamous metaplastic cells (endocervical component) are present. Performed by: Madie Dong Check Cashier (ASCP) . 01 Note: Note 01 The [...] <-Panic Low,>-Panic High,A-Abnormal,AA-Critical Abnormal Performed at: [facility] [id number] Terri Cantu MD, Performed at: [facility] [address] [id number] MD Pepe Murray Performed By: #### 1 [id number] ####[id number] [place] [address] Lab Miscellaneous-LCon 07-12 Test Code [id number] Invalid Interpretation Code [facility] Comment on above: Result Comment: Test code corrected. 07/12/2022 06:39:13 EDT Performed By: #### 1 [id number] ####[address] [place] [address] Test Name IG PAP APTIMA H Invalid Interpretation Code [facility] Comment on above: Result Comment: Test code corrected. 07/12/2022 06:39:13 EDT Performed By: #### 1 [id number] ####[address] [place] [address] Physician Orderon 07-11-2022 Physician Order [id number] 26#1.00CD:127 Normal [facility] Reference Laboratory Testing Ordered By: Klever Peralta on 07-11-2022 Test Code 323289 Invalid Interpretation Code [facility] Test Name IG PAP APTIMA H Invalid Interpretation Code [facility] Nursing Assessmenton 022 Nursing Assessment [id number] 5#1.00CD:127 Normal [facility] Coding Summary.on 06-03-2022 Coding Summary. CD:[id number] Gh0bWw+PGhlYWQ+PE1FV KMnM35tmRTexJ3SS8eQO S6FMHVGGGAHGL9MUQ1uf DF0PDkrS6ZcutQe UhhktYFuVL61IMa3SGZ1 uLzqAWwbvO6laLVlE6g2 LaCeJF13fI05AKueXNZa DsT2JtDnnyiiaUIq U2ooZpVtxRPaWwo+PHRh YmxlIHdpZHRoPScxMDAl TgZnaZrlUQ3iGo6kNVZi LWNvbGxhcHNlOiBj n6gsDGPbRAdyPT5hrOee D4RvpGN4USJsd8f7Rt24 dHI+AUPnPXD8rQnsSWck t735BqPyq4dtICG5 qDDnEAjoBOE5B02lb5B7 DZVdQFJqTTQ4hND7vE6w uZjtndpnU1EaxZZzObM1 SHE9eOFnnE5jdTas pmfgcD0wLvg+P83ZAU3R NXEWBQ7VXwl8E8ZnSmic dHI+KF41DKBzOT51zEPr bSVbj4zznTb3MiAe WHTtIHP4lWsyKZurt6Vq RGNoZ41mdXTar3X2XFRq rJqqzHSqZsPymGG9yI7x OBevvggjt5gpyvaf Dantj6amsu74oK71U31o WErmBWBqHYH3PCArOCOy wBajcx8ioV1cMh0+IDxj r3yry0gcrXk5UuFq GLWnovPgmFbpCMF5s0Gt Wr35U7GajYfah8HvGqp7 gd62rYXfq5E9xBS4IPvr QAOqyV8rGIkiKwI4 EYMuOvCiiF28nJCeAZgh Fc2aqRipmNieWG2gJPHi qsnxMOMpsJ9wPWAvsNLi mEqaSU2eBKSjhblv g995OrGjNBN8UPNnjWNi P3VgpB1bNxZiFXKnYEGe X1SpkZOxAAnmB829UIww DqF8VOTjbcMuD7Wc SOUrxCnaNmA7d8B6Ix5Q z1VkxnssFWD9ZAeiBHV8 VgUaUnVjUxL4X8AyVxp6 YKYesNwgVX9mH4Ky UUNhhjxsjbnqxQX3JCHk UMPqyC39dODqURhyCl3q a8P3z303JCJfPQPtoV29 Xm3gqQwbWPMgxRID eN9ipkbkw0yfufviXqBv PFKrKVk9FTf1IUCieEpr VtYjULO4WdT5ICN1pFPt xZ9ecFfobdtreQ3z Oyc+L25bvC1yPAX8UBP2 wqihIEHpvdCgTI09VI68 P0TzUngxbEMlyMF+PGRp ewAwmEgjGC2sAbNw h8feh1PgYEffX8LnWJSi SYbnBwd4KGBbOWE8jED7 lL1cOMSrXCfst2Z1bOK1 G2NuxwNbtg8ic4vn ROSoTIwaV59ttARtk9P1 WUEhySD4ULGtqRfqRjWc cE41Sex+QOOlkDmex1Io Xcwnx5ilm1oigGj3 IjMwJSIgdmFsaWduPSJ0 j2AqEn21W73vMDetHNSx KGXtPYVpEBQuzMjwwl3e rQ1aDk1+PGNvbCB3 gEH6uG1oAACeIuZ2SYfk P668VvIcbWPyKwbug5wj z3dcqZv1AfBlWUTpddBj tMqwAEW7f5DaUp70 C25jVGllIZUwOTGrLBSx XHFnfSizat2thU9mCa3+ CL1em9fmsz31oR04qWO+ BCQpOYM0kDafZXed WTXyfI9yKRopAyS7BRTw SfGvzW84rQPyETgpLy2n pRpzjZozLE3wHEXysufn u513JkNow0hoYFOl jHArCCrpNCS3O13ft8I2 PCLiIZKyNQI3jHB5lN3x bGlnbjogbGVmdDsgdmVy yIryRIlvMPulW284 IHRvcDsnPlBhdGllbnQg QsYuXMp4G0GgDuw7SIUi oRpmIT6obBMuECpuFn7b lZnbeKbsBZ0iLKWg olxok564VzWir3dkSJBg rRKqLWvdVXP7O68iz2C8 DQSqRIUpJRY9eRD4cL5s bGlnbjogbGVmdDsg zjZxeSouVIipGZhvS723 IHRvcDsnPkJpcnRoIERh yMP7ZA94GU37iLAtg9I3 cNH4F4IzSIGfcbuu cvghzDF9HAYjJRArdL83 Tj9rsMftIh0jXQYcDKN7 MAGbaHNnO1WcbN0fZxLn OWQwJGVeP6KhlUXf TAmsF892EIgvIpU5HUKz hhJaW9AhHKBexSotGaH2 e5N5Rk4GN5H5KI54CQ68 hRTet8C0mZB7O7At LQLiyyjovvbmlQF5YSLt SSHoyH49Aw3dkHbsOu9a AZHcVXY9WJLltFWlI7Kc lZ5qQiUoRNRnUBUv W2WilOPwZEqmI889WIuo UaI8TRUoqdHdL7ChSXRs aYesZrC6n5J9Iu8VYKw5 HW41YP68jYWzd4D3 bEO7I5ElNQMgqgxlbzft pOC7WWJkXQDlcN60Lf7u pDugJf6nQBGaIQY9OXHh hJHlS1GhrP7jDpTk MHGlAPKnQ7QgtZNnLYgh P633ATxsSoU0KQNyhpNs O1SiODOruLlsZwS6a9P1 Dv5WFEGmWM79QQD3 lVR0GF82QW16M2AyPuxy dGFibGU+PHRhYmxlIHdp ZHRoPScxMDAlJyBzdHls YM6rYe6yAHAgFQHh vLcqfJJgOyQbu9jgBNKd DEzsUN7lkUvzW4DagDM4 ILDfj8y2Lq53N99gA5Rq dXA+IROroCY7vLV6 vJ2uLkUcDmW6JCgdH101 OrOyyXBfSvckm0knk5gg sXj5LtD6NFNsswFopJhv PMB1x1UoYk46H46f IHdpZHRoPSIxNSUiIHZh mKriqe7dnY1bWj4+PGNv uBC5bEE1hX1rBzZeMcQ6 LOamS609TdDylPPd Qpuob8usi8pafCq9IcSo HEPtlyCdkAxlKUY6x0Fm Hi65F2VlmDibh4VjFao5 jl51oBAhy8O8lUX4 T6HiJUSliztytDSqmPgc UN6xYSOrxlzeKCXfwQ3v LSHhC7o1JeJfSlA4FUnk U8GuqzG3VGWthWHy KFpbVGN2O93rp8Y8EYKq LJMdCQQ3mGW3cZ5rtAag bjogbGVmdDsgdmVydGlj AKowLZciY545HLNy jPqaNDVmgH2eOCDhbPJe dFgrOG6ySACsxcmbTeUY Ax7NCsooO7MLISTWSYCa TTwvdGQ+PHRkIHN0 xKsuSMlbDTPimP7qERRr N9h6UbDeElY7MTncX1Ox UAUznlroRv38hO8hNcLz LlU2YSibJ5HaugH0 WMDwuJTxSBvcMNO6L31y x9U3YYXxIGCyXKH6xHS6 aQ9vjPxuwujhwQYsmLxh dmVydGljYWwtYWxp W592KMXglZiaRcInFiV2 HnF6ZTk5L6TkUhf4DLMf qBdwBK9rtGEiBNaiEe2z yFkpaHlmLA9fERUr ezuxXIRfcQ1dDXYbwHZa kYkgDV5lINVcozqtj825 SsGtTYQ7TQLadZNrU1Qs uP1cJmDnFIThOLPc X0NdbUFyEXssQ993ETiv ZiJ4QPAeqzBzB9YwZADl uFzjHqX8k7Z1Jo6vSLAP ZWFyczwvdGQ+PHRk AAX6qNdpUTbhOMIypK4u LKNxN4r8TtVqAoZ0XTzj K2GaACHpywcvYn76zJ7h ByObAxL9FJhvY2Ro wtB2MXWvvGFiMAnsITL9 N91eq7R0TONrSKQvBJV1 hHG9uN0euJzjmhrbbBDa dDsgdmVydGljYWwt MTotW607AUDanLgnRdOq bWFsZTwvdGQ+PHRkIHN0 jItcAFbfCWQoqF4kZKJo J8n3ThSvOjG9ZYia C6FeCOBodbrxNs15vB6y SaBgHxQ3EVlnW5EhruE2 GBKykKNvPLlpVXR9M23f z1Y3CVBqKBRiQHC9 vMX9kY9znIswngzniETv dDsgdmVydGljYWwtYWxp F883AOQxbAuxBqbvcOB8 aWVudDwvdGQ+PC90 ox46O0DfAimdLds5CZAg SMU1qXW9mQ9pPKUsVXmp r8H1zFH7B4UnirPoec2f y6puUGAhDMcrR15q nPBam9X3BLGbiVT7UPDd eCmeJwAizK59Rwx+PGNv zWyct5ZmFqcth6grf2na wPs1IkEeIOUnooHc fFdfUPN4h6XaEn84K85d IHdpZHRoPSIzMCUiIHZh eXrtau0nyO2fNr0+PGNv jOR6xIC1vB3tIyKg GwO3MWclW597QbVmkOHb Xqmya3zmp0szwSg6NtYw EZOljwKnyTplRBS8u6Kc Lf68J8QitUzue4Mv Rnn2ws39kKRwx1V1iPY4 R0QxUDUhiysltJNxuBfv TL6dUEImsyddGQMowD1s ASSfW3q3PlWhOwQ4 VQhiC0AlkpC4GQYfsIRo PAVxsSSCfA2nmzukv3gi ngkdZaKyVHWiTYb1CAn1 LWFsaWduOiBsZWZ0 YyP1BLO1eZVkwW6whGkt wsvsmY0lGff+WEu5i5ux gNPjWN0bsYT1TT59FD25 yRGzm5T6iZK0R1Im PIVcsirukverjZU7ZISz HOMisJ46Zi2ovThsHi8y PCNrBFT1SWQpfRJfI1Hd eK1rZjArRBIqDXJf Y0LmzYUySXymK272ULan LeT9QEHhmmGgV0HxRAIx hVuyRgW9h8Y6Au5QPM37 KR72KU95zIHor7P5 gAS0E4XjANZgklafhpgk sYX8CHYlXNBnlX17Jq8a rFyeAm4vJEBwTWQ0ZXFz mWQdC5LklR3hBjCq KDUrLKEoF1FoePZyVJiz Q313ZHzjBwQ9AAPaivKf L0InFZDlxUqpWtE0y7P7 Cs8SLc95LZ60IG94 dTHsp8J0uDT8A2HjOCIo xptkkklzhIL3DPUhLMSw hB98Id6qfRsnFu2xDQMo CUF1TOZoyUNtZ5Ti yX6qRiPaJFAzHORiF7Yo cNChWRtmN619SAssUyZ4 ZLKeyuCeS6EoVSJnhDie OgG7e0V1Ch4UDWsp vvo5I1JtAvkomDV+PC90 IOZbVT66pIRrvJDmx8de yWv8LsCfVBXuGEU2nJgh KGcqj0BiELQcS68z bGFw (more content not included)... Normal [facility] Nursing Assessmenton 022 Nursing Assessment [id number] 5#1.00CD:127 Normal [facility] Delivery Summaryon 2 Delivery Summary DATE OF [...] the room. Devin Pereira M.D. Dictated: 05/31/2022 [id number] Transcribed: 05/31/2022 Normal [facility] Comment on above: Result Comment: Elec tronically Signed By: Kelli DEMPSEY, Devin Collier\.br\Date and Time Signed: 06/02/22 11:12 EDT CBC w/Indiceson 05-31-2022 Erythrocyte distribution width (RBC) [Ratio] 13.3 % Normal 10.9-14.2 [facility] Comment on above: Performed By: #### 2 [id number] ####[facility] [address] [place] [address] Hematocrit (Bld) [Volume fraction] 29.4 % Low 34.0-46.0 [facility] Comment on above: Performed By: #### 2 [id number] ####[facility] [address] [place] [address] Hemoglobin (Bld) [Mass/Vol] 10.3 g/dL Low 12.0-16.0 [facility] Comment on above: Performed By: #### 2 [id number] ####[facility] [address] [place] [address] MCH (RBC) [Entitic mass] 29.0 pg Normal 27.0-34.0 [facility] Comment on above: Performed By: #### 2 [id number] ####[facility] [address] [place] [address] MCHC (RBC) [Mass/Vol] 34.9 g/dL Normal 31.4-36.0 [facility] Comment on above: Performed By: #### 2 [id number] ####[facility] [address] [place] [address] MCV (RBC) [Entitic vol] 83.1 fL Normal 80.0-100.0 [facility] Comment on above: Performed By: #### 2 [id number] ####[facility] [address] [place] [address] Platelet mean volume (Bld) [Entitic vol] 9.5 fL Normal 6.4-10.8 [facility] Comment on above: Performed By: #### 2 [id number] ####[facility] [address] [place] [address] Platelets (Bld) [#/Vol] 192.0 E9/L Normal 150.0-500.0 [facility] Comment on above: Performed By: #### 2 [id number] ####[address] [place] [address] RBC (Bld) [#/Vol] 3.5 E12/L Low 4.3-5.9 [facility] Comment on above: Performed By: #### 2 [id number] ####[address] [place] [address] WBC corrected for nucl RBC Auto (Bld) [#/Vol] 9.4 E9/L Normal 4.0-11.0 [facility] Comment on above: Performed By: #### 2 [id number] ####[address] [address] Discharge Instructionson Discharge Instructions [id number] 0#1.00CD:127 Normal [facility] HEMATOLOGYOrdered By: Swathi Weir on 05-31-2022 Erythrocyte distribution width (RBC) [Ratio] 13.3 % Normal 10.9 - 14.2 % [facility] HemeAutoSS Hematocrit (Bld) [Volume fraction] 29.4 % [...] 9.5 fL Normal 6.4 - 10.8 fL [facility] [employer] Platelets (Bld) [#/Vol] 192.0 E9/L Normal 150.0 - 500.0 E9/L [facility] [employer]eAuto[employer] RBC (Bld) [#/Vol] 3.5 E12/L Low 4.3 - 5.9 E12/L [facility] [employer] WBC corrected for nucl RBC Auto (Bld) [#/Vol] 9.4 E9/L Normal 4.0 - 11.0 E9/L [facility] [employer] Inpatient Clinical Summaryon 05-31-2022 Inpatient Clinical Summary [address] [address] Clinical Summary Person Information Name: ADONAY SAEZ [facility]gy[facility] Age: 26 Years : 1995 Sex: Female PCP: Shanna Daniel DO Marital Status: Single Phone: [phone] Race: White Ethnicity: Non- or Language: Lao Visit Id: Visit Reason: VENANCIO [place] [employer]sDEWAYNE Speciality: Acuity: 1 PP Enc Type: Inpatient Med Service: Obstetrics Arrival: 05/29/2022 07:02:32 Discharge: 05/31/2022 15:30:00 Dispo Type: Home (Routine DC) Address: [address] [place] [phone] Provider Notes: Diagnosis: (spontaneous vaginal delivery); Shoulder [...] Follow up: With: Address: When: Dr. Pereira [phone] Within 6 weeks Comments: Call for any problems. Support Group first Friday of the month at 11am Call if fever>100.5 F, heavy bleeding With: Address: When: Services [phone] 06/03/2022 2:00 PM Patient Education Information: Normal [facility] Inpatient Patient Summaryon 05-31-2022 Inpatient Patient Summary [place] [id number] Patient Discharge Instructions PERSON INFORMATION Name: SAEZ [...] Follow up: With: Address: When: Dr. Pereira [phone] Within 6 weeks Comments: Call for any problems. Support Group first Friday of the at 11am Call if fever>[phone] F, heavy bleeding With: Address: When: Services [phone] 06/03/2022 2:00 PM In the event that this physician does not participate in your insurance network, please consult with your insurance company to find a nearby participating provider. Comment: INADJA CAMIELLE M, have received the attached patient education materials/instructio ns and have verbalized understanding. Patient Signature Date Clinican/Nurse Signature Date MEDICATION LIST New Medications MIREYA CARDENA[address], [place], [place] [id number], [phone] ibuprofen (ibuprofen 600 mg Tab) 1 Tablets [...] to serve you. Thank you for choosing [facility] Normal [facility] Insurance Correspondenceon 0 05-31-2022 Insurance Correspondence [id number] #1.00CD:127 Normal [facility] Coding Summary.on 05-30-2022 Coding Summary. CD:[id number] Gh0bWw+PGhlYWQ+PE1FV SOjS87yjAMgrY4VV0lTG N6THCGZKTYDBA2AXQ6mu JR8RLzeN1StiiDg MjbgeZHuFU07CYt2NYU5 xCgsRWmidG1loCUqM8b6 SiNcOU48nG27YSdjJOTh NbX8PqViqhjzaHNq O6tvJsNwmAPkDbe+PHRh YmxlIHdpZHRoPScxMDAl PrYsbJysIL6rGr8tBLRl LWNvbGxhcHNlOiBj c6bpVBMhRLrbTX1puOsd E2FiaDB8QUAoh0v8Xs22 dHI+GYVnHVB8mNjyWHgn v164AjBem5lfWAU3 jHGdBNgyILC7Z18ac5Q2 CEGlMBJiXEJ5dEX7lY2p mOeeefvkN1NcyBGuLkH1 XPD2yQGxiV0bjKzo qxgeqM3fDno+U45DTP8L WNDIYS6IGlj8N4FcXmms dHI+YL00BJPrYK15pJIu hHClb5xdzIg2PjPt UGKhKHG6dYdjHRwep1Ey JDAyO37lmCHwv8W3GEAj eZtntIFkUfCxkPA6hT8d HLgbwthmh6nliuqf Tyykj3dqox64oO22F42l RTrxCATlAZO3AWNgRWUl nUikig1roV3qEn3+IDxj g5vzp0btnDo5MlQf PEHlczNiqWbvFPG5i7Id Rr67K5XtdGrld0OoUuq0 kp81bRGca9J7yCA5ONsg NAToaW5kQKfuEuZ0 VEFfLsJfuJ41bFNlZKdm Ix5maAqqzNpeCO5vYBKy zblfLRBdlB1fXLGxjFSa pMauXQ2dVBWbacik u997LlJkRUM2IXPgfKCu N2QfyE7jDqDvCBMsXQTz X4VkzRYxATcsY936QAyz FuZ2PIWexzPcW0Ru QEYvsCrrTxE5j8Q4Og8V n8NoznljSSM5RNftBQW4 DlC7IpLoCaM3M5PbOxw1 RNGeeMdsUS2jT4Bj SENcxacbwtgivOZ1AQKx DPPcsW82lXOyOHgvWw4b v3E8t659GBKcZICaoL96 Gz1biJfoDXIjnUBU vC5fqaasx4wdqjmeKvKg VRMkZYj1HTb7BSOhrCnz YjUcNUF7ZlF3STD4xMFa cR5ntFyabdxcmP4c Oyc+Y85bnH7sGUV8FFR3 tzzrOMJuebPqNV48QV32 A7EnFfamsJMdaJL+PGRp zfRkyPriKI3aLuEa w2axs3DqNWikV7YoNTGh DPruYoq4CWMrEZT3bPG5 mJ8mINNkHHjpc8N8yZQ2 V0GjwaOsmi9yw6kp AHRyXFfzM39bsUMyt5T3 UOVfuTU8GFAqaXxkShLq wD81Nre+FMWkyAsly4Kk Exlya7tjb2najEu7 IjMwJSIgdmFsaWduPSJ0 k9FyUm30Y75qVDmhUIYj PVYdQPYeEAKfbRbmfv4l wY7cZt8+PGNvbCB3 mQL2rP5sETIiTmU1AEbs Z319YjNmrRUfGjzam5xw k1rdhQs4EoSwZXPumjPh gGjuYFX7w9GsNc09 C79yYAkiZRIvEIFbXCZk YXQguJkhor5xkR1dJn5+ AR4gi2ljcy86hQ69qIB+ HCSmAFR1bOrgGZzo KEBlsL4yRSscEyP2JYIa HxWozT12zRXsPNlcHy9p vCyrrAorUO0nKOCblhrm g523FfNbt2hrOXMl mMGhDBdqSCI0D33uv0W7 PJKxVBKeCQB9oQZ5cZ2g bGlnbjogbGVmdDsgdmVy dBwmCAjlHPmnE752 IHRvcDsnPlBhdGllbnQg LvOuIGy1E5AtNqm2IHSx xTcdRO8fcZVxPDxhYa4z vGznbTexHH4rGOSr yejrz447XnJbp5kdMETf jHAsQHmjLSX2K92lj5I7 RRWcOZYnVQT8dAS6lC3r bGlnbjogbGVmdDsg dhUduUvlLSgwMYwjD896 IHRvcDsnPkJpcnRoIERh nPZ9GO06KO67qQUkd6K1 sAE8D8BbLHMxvyam jtsceHY1OESbBKAhiN22 Qr6hpXxjCo8oIYSjRKH6 UIMuuQXtM6ZoqO5vShDp CKNvHJUqV9RbgPBd KJqwE112HEdoXtY7QIBs uyMnP0CpRZKnrUwuCcR6 p9S9Yb9FL9N1CA09NM57 iCKoj1W4tBA5U5Hl YMDlhqpicalaqYO3AIAl ZBLziB67Gr5auIjgUc1k TLIkYAF6MJWxdUDdH7Nh qA4xEbLfBYHeCRJj R0EdwQJbKLmhW425QZon LlI8GRPaepBvU0XsOTXt dQuwCxQ3q2G8Sr9ZXSv6 FA05XA64cOFkh4B1 bKG7D6SxVGHqzimvgkli fRA4EJWmSHZabE07Hi3q bUrhAn2qVOImJOZ4XNHq zEWoC7SniO5ePnKb XQRwGEViN7YnsLQwNRxz W201TEllQiL7SONiteNl U3BfMUGmlRitKwK1a6I1 Mv2NKMStXS83KJY0 wYG7QD97LO26A5UwBsoz dGFibGU+PHRhYmxlIHdp ZHRoPScxMDAlJyBzdHls CG6pYf2sKEEmNLLa zDyxdNAiQpArb5nmITWg FPmpEV0mxFpsS8IqgUI1 HDLcr5y4Wh82A94dP7Am dXA+SNMtiPQ7vGE9 qL8qCvCbHgP8GCznG158 QjHzdEViSxbeh7fbm5an qJy2ZwA9WADtciFvtXhn EST9h4KjGq31U97e IHdpZHRoPSIxNSUiIHZh vBpbuj3qsA6lQr4+PGNv vXI7cVL1kH8kArSaZrW6 TSzcM381HqSkwGXt Urhmh6iob5ygvPr3YvYx BTBpxgWweTqvPRW0d2Qh Jw48O8TfpEosh7LrWik5 si88xZQfk0N6bAE0 V4HcVXCztgojnNDmgJod OE1nBIJffvclMNDspW2l ELNxJ9v1SkCvAoO1VEvc T8TbelW1WQDkfDUf OEdtMAD5K35ts8H5DTAv MCTfTAC0nWR2rL9tyDwx bjogbGVmdDsgdmVydGlj KCsaUSxgH602OZTf tJqwJNOyqC2qKBCbpFSz eIfoGN2hBZUklesoDnSK Xh7NKxarY2FTOPUQIUVg TTwvdGQ+PHRkIHN0 gBslSXhtEOLvbZ5lHJGr R3u1QjOqQiN1CPiuV8Xm SWWgvcgvFo19aN0bToOs LdG5XVifO4YxzuP8 GJSxwTVyIVrzFPU0X65n w8G3KBTwBVTwCXV3dGZ3 eH9faPicmnpupQAouMvg dmVydGljYWwtYWxp U275QUFolHsgLkHnUgP5 QoG1MKx7F7PwEhp3TZUb hLeoGO8qbMQsSQquCg3p jMvgpAgiJO1lAUDf kegiDXInqI0tBVKfhFJp fQfwUL0kNOLrjmuce243 WuXkHUR2MLPeoMFfP5Cz lY1vTuVlXSEaJKGf D9BorRHaGCmaI291YDxy JbD7GNOaskXjR0PjSDWs vOuiZkT9g8C2Ct3eYRUX ZWFyczwvdGQ+PHRk VVB4rDqlXQtxKUDstT6c KCGlL2b6NsKwPkG8LAjt S9TqZLOfjdkuYj40yW8a VjKzReW6EJwtX5Ys cfX1DPIhmBBgLTztOSG3 T11fi6X2BYVgGOOgXNU4 lBD1aN8srQqmhkbvyQNt dDsgdmVydGljYWwt KWviW667XCJrePedOjJq bWFsZTwvdGQ+PHRkIHN0 zJasHWvhUEKkaH3yJTDk V4r3ApHcIgU0LCyi L1ZcWFLimcoxAw45mK7l IzXqUgD1GHuaF7TjhjY2 ULKniLZqJPptWOH3J16d k0B0NOTnGWNzCPJ9 oFX1tD8zjBgpuyqxlUQz dDsgdmVydGljYWwtYWxp A934EKEhpTmmJe9GIMIn aWFnZTwvdGQ+PC90 nt87M3BiYhemIlf7IVSi JWJ5fDG7dL9bXGPaSRhh i4K0oEQ0V3TnpcBicu6x a5jqXNJvETseK56k xRKdp5Z8SAWsiXK0LPKc xUhgZeOawX16Nkj+PGNv gGpbp7YfLgyse9pjp2je gAl8YnVrAVQbwlZn zYhbOAC8o0EkFx64N71o IHdpZHRoPSIzMCUiIHZh yVvkww8abJ7hPy8+PGNv tEG4oYR5lF7nVhLw EhX7RIoqY448TsJklXMb Umnjz0yqo6szhIc9UdJk IWAsokLajJxbOIX8p5Fo Rb79R2CblOugz3Xj Uub1ml56lDZob9K6xZH9 L5HeLGHbmbadcEGpsArh ZW1wYPPtgkxeFNUejG0i OOGzF4c7OiEiGvB2 CHfbN9WmuoK9RLNzsEXj XTZkxPBFfI1pvlvgu3qi rlgxUeOhGWQeLKi6XJh0 LWFsaWduOiBsZWZ0 YvN9TFL8pHJanU7azJxn uyyrrU5cNoi+DJi8g1ej qAXnRK2abLK4XU24UN59 bQHww2R7gUM4U1Yj JNUtrlmqfhjvtDR2OLWn XMImoB87Rn5vcBrrVp6v LZQdXYB2FRFdwDImN2Wj fI2pNxHjCKRbZZHk F4XpwQRrPNrmX098LXqk CnA5RZKnelQwE6FmLZXq qXwbTvJ5c6Q2Gs2MOD40 SZ50DU91fYLgs2O3 tPD7I9UkJRNayfwfytvh xUH0FCXdKGJomN68Ci7f fKarKe6cRLXsCWH5FPTx vWAnY4GejK1mDxGw MQHnSJRuG3XroSAjZPdq H952WUyuLvC6LHJoioDp N1OaIVHmlYflQtI2u4U5 Vi3DNq54IK50KH89 dCWxk7K7tIQ4V6MuFIYq lwajkswxsWP8JZTiSTIh cK24Jh1sfIpgBu3bRXTm FQZ7CNJvnHRuR2Nw yQ7tLdLkRIQjPQFcK9Yz vIYmGOszH748ZWllNkF7 GIBmctKxV8RmMRJzjPzb ZjC8y4Y9Qt0BUOta kbl1U9EjZobqaFW+PC90 ZNYeTN06oUHjzGLmp6qc dAj6BlOoLHZaJNX5hWna PGwjc1RlNNJfI60g bGFw (more content not included)... Normal [facility] ABO/Rhon 05-29-2022 ABO/Rh Positive Invalid Interpretation Code [facility] Comment on above: Performed By: #### 1 [id number], [id number], [id number], [id number] ####[facility] [address] [place] [address] ABO/Rh History Checkon 05-29 ABO/Rh History Check Verified Hx Blood Type Normal [facility] Comment on above: Performed By: #### 1 [id number], [id number], [id number], [id number] ####[facility] [address] [place] [address] ABSCon 05-29-2022 ABSC Gel Interp Negative Normal [facility] Comment on above: Performed By: #### 1 [id number], [id number], [id number], [id number] ####[facility] [address] [place] [address] BLOOD BANKOrdered By: Alexandra villaseñor on 05-29-2022 ABO/Rh Interp Positive Invalid Interpretation Code [facility] BB Subsection ABSC Gel Interp Negative (05/29/22 7:39 AM) Normal [facility] BB Subsection Blood Bank ID#on 05-29-2022 BBID# [id number] Invalid Interpretation Code [facility] Comment on above: Performed By: #### 1 [id number], [id number], [id number], [id number] ####[facility] [address] [place] [address] CBC w/Indiceson 05-29-2022 Erythrocyte distribution width (RBC) [Ratio] 13.1 % Normal 10.9-14.2 [facility] Comment on above: Performed By: #### 2 876391 ####[address] [address] Hematocrit (Bld) [Volume fraction] 33.1 % Low 34.0-46.0 [facility] Comment on above: Performed By: #### 2 551204 ####[facility] [address] [place] [address] Hemoglobin (Bld) [Mass/Vol] 11.4 g/dL Low 12.0-16.0 [facility] Comment on above: Performed By: #### 2 072306 ####[facility] [address] [place] [address] MCH (RBC) [Entitic mass] 28.5 pg Normal 27.0-34.0 [facility] Comment on above: Performed By: #### 2 859934 ####[facility] [address] [place] [address] MCHC (RBC) [Mass/Vol] 34.4 g/dL Normal 31.4-36.0 [facility] Comment on above: Performed By: #### 2 [id number] ####[facility] [address] [place] [address] MCV (RBC) [Entitic vol] 82.8 fL Normal 80.0-100.0 [facility] Comment on above: Performed By: #### 2 808465 ####[facility] [place] [address] Platelet mean volume (Bld) [Entitic vol] 9.7 fL Normal 6.4-10.8 [facility] Comment on above: Performed By: #### 2 523935 ####[address] [address] Platelets (Bld) [#/Vol] 215.0 E9/L Normal 150.0-500.0 [facility] Comment on above: Performed By: #### 2 032266 ####[address] [address] RBC (Bld) [#/Vol] 4.0 E12/L Low 4.3-5.9 [facility] Comment on above: Performed By: #### 2 917734 ####[address] [address] WBC corrected for nucl RBC Auto (Bld) [#/Vol] 7.0 E9/L Normal 4.0-11.0 [facility] Comment on above: Performed By: #### 2 757253 ####[address] [address] Consenton 05-29-2022 Consent [id number]# 1.00CD:127 Normal [facility] Consent for Procedure/Surger yon 05-29-2022 Consent for Procedure/Surgery [id number]#1.00CD:127 Normal [facility] Consent for Treatmenton Consent for Treatment [id number] #1.00CD:127 Normal [facility] Discharge Instructionson Discharge Instructions [id number]# 1.00CD:127 Normal [facility] HEMATOLOGYOrdered By: Alexandra villaseñor on 05-29-2022 Erythrocyte [...] - 11.0 E9/L [facility] HemeAutoSS Recordson Records [id number]# 1.00CD:127 Normal [facility] Progress Note-Physicianon Progress Note-Physician Patient: ADONAY SAEZ Age: 26 years Sex: Female : 1995 Associated Diagnoses: None Author: Jose Miguel Garcia Jr., DO Postoperative Information Post Operative Note: Day 2. Anesthetic utilized: Regional: Epidural. Health Status Allergies: Allergic Reactions (Selected) No Known Allergies Problem list: All Problems / SNOMED CT 824942411 / Confirmed Resolved: Anxiety / SNOMED CT 86104624 Resolved: Depression / SNOMED CT 623588084 Physical Examination General: Alert and oriented, No acute distress. Neurologic: Normal sensory, Normal motor function, No focal deficits. Review / Management Condition: Stable. Assessment Anesthetic outcome No post-epidural complications noted.. Plan Transfer/ Discharge: Condition stable. Normal [facility] Comment on above: Result Comment: Elec tronically Signed By: Jose Miguel Garcia Jr., DO\.br\Date and Time Signed: 05/29/22 17:36 EDT Progress Note-Physician Patient: ADONAY SAEZ Age: 26 years Sex: Female : 1995 Associated Diagnoses: None Author: Jose Miguel Garcia Jr., DO Chief Complaint Intrauterine Health Status Allergies: Allergic Reactions (All) No Known Allergies Current medications.Problem list: All Problems / SNOMED CT 088600825 / Confirmed Resolved: Anxiety / SNOMED CT 21842017 Resolved: Depression / SNOMED CT 976325399 Review of Systems Respiratory: Negative. Cardiovascular: Negative. [...] The PCEA was started at 1728. Normal [facility] Comment on above: Result Comment: Elec tronically Signed By: Jose Miguel Garcia Jr., DO\.suresh\Date and Time Signed: 05/29/22 17:36 EDT UA With Cult Reflexon 2021 Epithelial cells.squamous LM.HPF (Urine sed) [#/Area] 0-2 Normal 0-2 [facility] Comment on above: Order Comment: Urina ry Catheter Insertion triggered Urinalysis With Culture Reflex order by discern. Performed By: #### 1 8553722 ####[facility] [address] [place] [address] Iantha.plasma/Lithiu m.RBC (Bld) [Mass ratio] 0-3 Normal 0-3 [facility] Comment on above: Order Comment: Urina ry Catheter Insertion triggered Urinalysis With Culture Reflex order by discern. Performed By: #### 1 0562739 ####[facility] [address] [place] [address] WBC LM.HPF (Urine sed) [#/Area] 0-5 Normal 0-5 [facility] Comment on above: Order Comment: Urina ry Catheter Insertion triggered Urinalysis With Culture Reflex order by discern. Performed By: #### 1 5593710 ####[facility] [address] [facility] [place] [address] Bilirubin Ql (U) Negative Normal Negative [facility] Comment on above: Order Comment: Urina ry Catheter Insertion triggered Urinalysis With Culture Reflex order by discern. Performed By: #### 1 4372448 ####[address] [address] Clarity (U) CLEAR Normal Clear [facility] Comment on above: Order Comment: Urina ry Catheter Insertion triggered Urinalysis With Culture Reflex order by discern. Performed By: #### 1 [id number] ####[address] [address] Color (U) YELLOW Normal Yellow [facility] Comment on above: Order Comment: Urina ry Catheter Insertion triggered Urinalysis With Culture Reflex order by discern. Performed By: #### 1 6517543 ####[address] [address] Glucose Test strip (U) [Mass/Vol] Negative Normal Negative [facility] Comment on above: Order Comment: Urina ry Catheter Insertion triggered Urinalysis With Culture Reflex order by discern. Performed By: #### 1 7622856 ####[facility] [address] [place] [address], [place] [address] Hemoglobin Ql (U) Negative Normal Negative [facility] Comment on above: Order Comment: Urina ry Catheter Insertion triggered Urinalysis With Culture Reflex order by discern. Performed By: #### 1 8071187 ####[facility] [address] [place] [address] Ketones (U) [Mass/Vol] TRACE Invalid Interpretation Code Negative [facility] Comment on above: Order Comment: Urina ry Catheter Insertion triggered Urinalysis With Culture Reflex order by discern. Performed By: #### 1 3560716 ####[place] [address] [place] [address] Nitrite Ql (U) Negative Normal Negative [facility] Comment on above: Order Comment: Urina ry Catheter Insertion triggered Urinalysis With Culture Reflex order by discern. Performed By: #### 1 [id number] ####[address] [address] pH (U) 6.5 [pH] Invalid Interpretation Code 5.0-9.0 [facility] Comment on above: Order Comment: Urina ry Catheter Insertion triggered Urinalysis With Culture Reflex order by discern. Performed By: #### 1 [id number] ####[place] [address]6557 Protein (U) [Mass/Vol] Negative Normal Negative [facility] Comment on above: Order Comment: Urina ry Catheter Insertion triggered Urinalysis With Culture Reflex order by discern. Performed By: #### 1 8538657 ####[place] [address] Specific gravity (U) [Rel density] <=1.005 Invalid Interpretation Code 1.005-1.030 [facility] Comment on above: Order Comment: Urina ry Catheter Insertion triggered Urinalysis With Culture Reflex order by discern. Performed By: #### 1 0194394 ####[place] [address] Type of Urine collection method Clean Catch Normal [facility] Comment on above: Order Comment: Urina ry Catheter Insertion triggered Urinalysis With Culture Reflex order by discern. Performed By: #### 1 1366673 ####[address] [address] Urobilinogen Qn (U) 0.2 {Quinton'U}/dL Normal 0.0-1.0 [facility] Comment on above: Order Comment: Urina ry Catheter Insertion triggered Urinalysis With Culture Reflex order by discern. Performed By: #### 1 1756067 ####[address] [address] WBC Auto Ql (U) Negative Normal Negative [facility] Comment on above: Order Comment: Urina ry Catheter Insertion triggered Urinalysis With Culture Reflex order by discern. Performed By: #### 1 6038248 ####[place] [address]6557 URINALYSISOrdered By: Paulina Dobbins on 05-29-2022 Bilirubin [...] Interpretation Code Negative [facility] UA Auto SS Iantha.plasma/Lithiu m.RBC (Bld) [Mass ratio] 0-3 /HPF Normal [...] [facility] UA Auto SS Urobilinogen Qn (U) 0.8813619 {Quinton'U}/dL Normal 0.0 - 1.0 EU/dL [facility] UA Auto SS WBC Auto Ql (U) Negative (05/29/22 6:35 PM) Normal Negative [facility] UA Auto SS WBC LM.HPF (Urine sed) [#/Area] 0-5 /HPF Normal 0-5/HPF [facility] UA Auto SS Vaccinationson 07-06-2022 Vaccinations [id number]# 1.00CD:127 Normal [facility] Consent for Treatmenton Consent for Treatment [id number] #1.00CD:127 Normal [facility] Discharge Instructionson Discharge Instructions [id number]#1.00CD:127 Normal [facility] Inpatient Clinical Summaryon 05-28-2022 Inpatient Clinical Summary [place] [id number] Clinical Summary Person Information Name: ADONAY SAEZ [facility] Age: 26 Years : 1995 Sex: Female PCP: Shanna Daniel DO Marital Status: Single Race: White Ethnicity: Non- or Language: Lao Visit Id: Visit Reason: CYTOTEC Speciality: Acuity: Enc Type: OB Triage Med Service: Obstetrics Arrival: 05/28/2022 08:35:16 Discharge: 05/28/2022 17:00:00 Dispo Type: Home (Routine DC) Address: [address] [place] [id number] Provider Notes: Diagnosis: Problems Active (08/25/2021) Smoking [...] Follow up: With: Address: When: Devin [facility]AN [facility] [address], [place] [address] Business (1) 05/29/2022 5:00 PM Comments: Call for any problems. Return for contractions closer, longer, and harder. Return for decreased movement. Return if ruptured membranes or vaginal bleeding. Patient Education Information: Normal [facility] Inpatient Patient Summaryon 05-28-2022 Inpatient Patient Summary [address] [address] Patient Discharge Instructions PERSON INFORMATION [...] Follow up: With: Address: When: Devin [facility] [place] [address] [employer] () 05/29/2022 5:00 PM Comments: Call for [...] to serve you. Thank you for choosing [facility] Normal [facility] [place] [facility] Insurance Correspondence Off iceon 05-28-2022 Insurance Correspondence Office [id number] 1#1.00CD:127 Normal [facility] Coding Summary.on 05-22-2022 Coding Summary. CD:[id number] Gh0bWw+PGhlYWQ+PE1FV ESaA47jaGZeqE6HR8bGM N4GIRVZIVGWXJ0PBG5mh PX7NDvhB2UvjcWg PhtkwUEoJM34OGj3IHW8 aKkxPMchxY7clYMwB3m9 ZxYlPP08tE76TJmjWAMe MyZ3OaLxtwkcaKKr N0cwPqWklUNuSik+PHRh YmxlIHdpZHRoPScxMDAl TxYzdHjmEX9zLt0qKKNc LWNvbGxhcHNlOiBj z4alTCDnHWanHI1uyJty X2OazBK0BEQyw3v2Qa81 dHI+YKLgMRF9hZffJAlp z471JlBsq3dnYUX2 tHTgJEnbOZW5K46ss1P3 CXDfYTIzSME4cWE3wI2d vGeuqbzoI1FmlJJtKfD1 GNQ4xBHotZ8kyDfs aebiaL4lPgf+P76XNF7L YFZWEN9CCmt5E4SaQibk dHI+OU24FUUvOJ34kMZb mPQxf9wisHg9GxAh DMYvBEV6hPwvUJozx0Jz YEKwV60mzTFrn4G4OGGw yShrnQNpMfWpvMW2wL7q GRzaimzqz3irmfrg Xhwoe0ouza99mE90L36p GGmvYEAvBTB6NAXfXKYw sOyhne2awX6jDn9+IDxj h4qlq5mpkHk9QsTm EBVcvaIcwFzxQNM5e3Up Dv29A3ZqgAoep7FhVxd2 hw30oMHak0W0kGS0PRre LSVkzS7cEHqbNzA7 FIByQxXmhJ17dMHoIIcp Jp4jjCqgjWowIK8jOEXa nkfiHFXqwV9tUJJutRZu yVrzKR2iAESioidn n186FfHeCNN2VODfeDQa N5VeyR3dEjWlFZLdWXFx C0XpcIPnNMwcB071RXrj ZeQ5ROTvklHfC3Kc TECqwAhpWnP5m1Y4Za5S b7FjueagVIG7OQxqNNW7 GbY8QlZfEnA8F8EqTwf8 VRVwcSxyZO2kQ2Ye HBPouiykghoqmSR8VNRm MTVagQ45tMIyWYyuHk4m m5I0n488XHUcIIKyhH42 Er5ieBpeCJUqqUMZ lH6nvaqwe6jacsmzTzWs WTEvCHj5NOy0GUEftXbo FcUmGKW2ZxK4TAR5kYVq sG8ftPibqgmspS0l Oyc+G60otA7aUYJ7QGO3 jbtxOVMgxxGtMD22OR47 L7JgTjjupJCnuVF+PGRp okQhgQwrJJ0uFnAn c0zau7PwYUeyB9EeIBSx WAxgOzv0LJDaRYG3yTS2 xY2fSKCoCOswl4C9lOZ1 S2SclqDxzy8qj5mw XTIiZFbkD51clDEdp2D7 IYLqfAA2NITmtCftTjKo dE61Zyw+QGMenXseh0Pt Byvuy4evm2gyoJg2 IjMwJSIgdmFsaWduPSJ0 t8EdKx78Y57kZPqoUOPt EHKkEVEiTJWxaFbaec8e nL8wAn7+PGNvbCB3 wDY2kX3fJOKqKvU6EWpr T611LhZttCQhZzpku8pt o3axcEg7JyLwUFXrxcRb sMmkOEJ2v6AyQy32 U26mHAbdEPUyOHSuOIQo XQIyeRjjox5yvB8xGu0+ DU9mm6yhsr22wS15jJB+ NTUaKKV2mRdwTHjd JTNqrT2eNXqjUzZ5VWQa FpUlwY41mUJfMKpyWt1e qJsfhZyqZC0fHOBnxzuo l732VfNbb1vxWSYo gWXnVXnjTSH0N49qn0P0 HSJnVHLbTVX2oRE4gG8w bGlnbjogbGVmdDsgdmVy hInxVQfbDHbpC265 IHRvcDsnPlBhdGllbnQg MaVsDXr8Z1XsOby7YMUp gZcxGD5zgHOsJDwjCw6t mCzjlRgxRA7sWCOu bipgb541OcOtt0tdDPCd eUDwQUilNBL7T13mj5F0 NQKtPUGuQDK6xIW4tE7a bGlnbjogbGVmdDsg paLblWviNPmnWTioX975 IHRvcDsnPkJpcnRoIERh iXD4EX82DL37wMMvy1W7 uHV3I5VtNZKaxuhz aglpzOG7DHHvXYPmlQ87 Ry7zzFbvGo8dAPIqROT2 KYDtzSRsX5BxxM5eEfZa OPQcBNNaB4TtgSKx FSpbZ640JGquYwZ9JUDi goQwQ0TvZKQjqAncJyX3 j5Q0Hx8BV3P2SA11DX92 lFWtl9C8cMP2G4Ly SYJabvgtpnculDM0DLEi SNFmvH42Om2epUniWi4b EGFoIOC1IVCtbTVpK6Bb cT4oWeLeESAxWRHg P8HerYNzGVwuI477BQgf XyJ1LHSwajDnZ3ObCFVv uJnpMsC9b9T8Yu7OOFv9 OD22AF55dTTht9N3 cUZ4D6LrBBCttdejthek uDW1FOPzPPZpzC98Pv4d oGdeCv5fRHZrEMX4VTUb oKCxJ4ZvuH3oJaUe NMTcEPBpE3BfxIMyBVql L339GFoqQaY7FHOfxmEf R0DqNEDdlBhtFbO3o7I7 My4AXSDuUJ70FZO9 aQV2QR85EM18T7IhTpve dGFibGU+PHRhYmxlIHdp ZHRoPScxMDAlJyBzdHls UP0xOt8qANXxCZIr lRbvlRVpMeOiv4slCXRx XRgkBU9elVelC1FqePQ3 NITck2d5To80Z94vK5Ib dXA+FIYelED6nHN0 oU8iOsFsUhD2WNqpI835 LvPpzHIdKypvr7mao9ul uFg2GlF3USJfntWnhSjf PIW1n2QaGd81V06l IHdpZHRoPSIxNSUiIHZh eBduyl5dfQ0sLw2+PGNv tGQ5fVY4mZ4oVrRwTvQ6 PSvcE432RtZeePOn Tslbz1kth6jcyZx2XoHl AGGkznEljGqmTRP6p2Zc Yl64C9KleSlpo6UdMzu4 kr28oTRua1R2uHF9 E8CoCWTwlcpjoQXclYgp HG5eOCOjnnqbGKCckC0i LXUoR8h5BdOfHiV5OZqd N5DhgxU1ALBacVIq UAnrOWP3N37wb4H0YWDe YCRpXHF8dZJ5bG6coCit bjogbGVmdDsgdmVydGlj SAfvLCpoC582MZIc vLdjGIIbvS2fWMDpkJOp rNloBN1pZIWjtwucAwDH Ey0HZjbdV8RJDSIJUNYh TTwvdGQ+PHRkIHN0 cQwzKPnyNFTqdH7sUPGx E9o2IcGtQxJ5MNemV5Iv ZDJhwhwfIt96nG2zUfSy FeR2KHhhU8HlyqT8 QTZnbFBpJRqkYJZ0V74p y9C9UZBfHXJeVAS0yBF9 gU0teJtkhrhukOMkoBpa dmVydGljYWwtYWxp Z248OMDuuNsaEoBpQiX9 LhX5JCb4I1UbBse6ICYe fKypRA1xaDWcQTgtMs6f wQwemZtuYU4zZALf ppwxVFYnfI8vUFNovPAb uXivLA3qPHHlvrlhu523 GeNwDWZ3CQTilUIbT6Mu bG3sRlFlEGFxWXWe T4MinBPvTOqdF419CFjp WqQ9BCBrmrEkZ9TgOZFx oIdkMqL9l7O6Fh3aJXTA ZWFyczwvdGQ+PHRk LWW2gImrQUvyEGNseK1o KHCkL1u0KzBaOrZ3MRos R9YcANRwvkpgOb20uA7a UoBsKiD6OKecV1Tg daJ3PQAijSPpZSnbZYW1 X18ax4I3KRPlZLVfKWS2 kEF5xK4ldQkrpzwgaMUc dDsgdmVydGljYWwt IJdpI309JSHfdKadRcUo bWFsZTwvdGQ+PHRkIHN0 hLdbXBdvCHGqwI1lLEYl K8b2RrEsKzN5EMme T9XdIFTqtfxwEs30aZ3v RaStXfT7ZPlqQ9GhiuA1 ATOmmPGwZCiiVYN5X50b q9S6POTdNWZxZQF0 cUJ7rH5gbShitvkxrPUo dDsgdmVydGljYWwtYWxp R315ETOyuHecPcfqUtFJ zt6qTY4rPhdcgVS+ PD36ld81P3ZkPnmvEqk5 NEQcBNF5oUT0tO8vKHRm MLjpr4O1yKB1N4LaxxDi gd0lt2vnWJRvEZyc F49fqCKky9P6RBDxaIB2 RODdkShtWcChiS97Eup+ OWSclCdmm8WgLcxvw8tl a6fzmKm6BaWwYARt rcPwnSntUHX9j5KxSs93 J43jJQnmUCSlVCCfLHPy PXYciAtdcj2tpH8iWe2+ LOOfjXN0wJN3pO5f LyOfLnR1FXfiF726JrFw uGNlUzght9hrb8sbmIa1 IjIwJSIgdmFsaWduPSJ0 l5OvYh02V5TwcEev y7ScCtj8td48sYCay8X2 qKG0A4DrPTJxzsjciZMu nQcfOU5yOJSgcwdnPVQt mV9yQQVhH9e3DoLw XyU4LFkuT3AhgrN7GGQp hNIeIMSjtYWUyO4yueof g8farttoMoMeDBZuHFk4 RAe1GNPftTmsVzYw URT1EzA1MIR0lCKzwL7c pSomqsjikQ6vKyr+UGh5 a4ytjIMaOL8leWE6TZ79 QO18rCXql7X8pZK8 E9QcDWFutjnzmxnizYJ9 JECeRAWwaP50Vn5gwBog Mu2qEPXsKZL8CNGcdAZd T9ZpyA4bKqUsGVOm TGDkP8BswSTvLOgnX140 MYbxFuA3FMLhpxFqB7Fy CHSbfWtjXiK6m9F2Rj1R LF25WX84YP82tVXp k6H5bOQ9F2DjINOnceic vsjmtWY8LBYwHJQrsA88 By4zkAbcXe1dOFIzDPW8 FCZodXGdD8OwfD1r LxFbRSPhHXHxZ5QcrXId ITggG052SMvkVrO8QMSm ywJzF7PbXCQntShwYoO0 i4L2Zb4QNs54AW52 YI25eGFyk3F2oEX6B7Eo ZCUdqtgzasrnkYN5UVXo MYKhoG38Bs0jpPpsEw4n IBSkMVX1SKMykQJo T6ZjqE2fRtGeIDZdVQUq H7JsqXBcHYaqV482FJhx HiM9LPYuocBcP3YeIQVd uLeqSfG6c5N0We9O COxjlhs7R4KeBznkcBQ+ RL83XYWfMW12kSVszEKm e5ywfHh4SqRxFDJlWNA8 nTrqSKldh2CfHXLd Y29s (more content not included)... Normal [facility] Group B Strep by PCRon 05-08 Group B Strep colonization by PCR Negative Normal Negative [facility] Comment on above: Performed By: #### 4 [id number] ####[facility] [address] [place] [address] Physician Orderon 05-07-2022 Physician Order [id number] 7#1.00CD:127 Normal [facility] Physician Order [id number] 6#1.00CD:127 Normal [facility] Coding Summary.on 03-06-2022 Coding Summary. CD:[id number]:[id number] Gh0bWw+PGhlYWQ+PE1FV XNhG01vlPUmzR2ZN0xDM E0NGKEQVELXBQ0GTJ7gn NV9CExjV4XjqrHm NhabzNUzVT68LGb5CCK4 qEsjEMekpR5niUUbS4h3 TtNiNG07vE76XDcvEGDt OsZ3PmEdzedvlMOh X0zrEjKexCYqMuw+PHRh YmxlIHdpZHRoPScxMDAl StMtjQcnTQ4eJj7yLGJz LWNvbGxhcHNlOiBj k2iqQQXmWEkyJH3ltGpk G2BomFG4OGQed1c5Nm69 dHI+SOSmIBV7tOueAUcj v220YqZml6roULP4 kKTdDNdhHSB3Y85wb7O8 ARLsRTBuISF4jHI8aV1f nCaalwimA4YfdENdEgU2 ANS0uEWupC8jxAmy egpawY9jFnx+I02ZQW0E HGBQWJ8SSfy9B8YbJtrm dHI+VL25SDXlED09oRVg yVJtm3vzyVq7NsSi HKKzKWG3xOgsFXoki4Cd QCPuX02exEBzc1W2YYAz vKceyIZiPwZswTR4vX3u HLwrfgwcb3eozjuo Vzjqd5ybhl41pJ02Y75c SCxgHUEnGSR9RXQzYVAq pEkyzv8qfW1aNy9+IDxj q0mro6ehcLq4IcLv WGLlquElpLloIBZ2l3Ol Ck44A7UruVzlx5XuKsu0 sa22eKRji3T1nOD7QEtb ZJFbzI5iXBbuWsA7 JBZlIeLxkD83mGDmLQpx Ql5lpMltxKpaIV4qPLGd upexHMQdrF8wBCTrbPPp kZysLQ3yEGSilavk m510KlEeLIA0MCKqnCRv M1YclL5zBsQgKPTgXBWm L1BpzYTkKHocR771ARcx XrG8YPLfjvUzK4Hl IYUgdDnoTlI1k5G8Ef1N g4RhoetwFVW7EJthBHT0 UpAdIkJsZpE4B8MbTsd3 VQGlxPnwBE2dC5Cc TPMoaubrkjbbeJQ2FBFr SWJazQ72cUKqSEsnXi3i v1I6e562YKZhAVAkdF18 Rl0syBnmZCNmzJRP nP3eyrzwr6djfresThMm KDIzURj3TIi1PXWtzZma NkKyAOB5PiV3CLM0bEYy nI8rgLoldpdwaX4v Oyc+Z43voU3nBML1SGJ5 qhfyVCBqqxKbMS29LH10 I8EhEvoooLHfeKW+PGRp coOndSkwFA8uEuLr e0phs2SvEGgtA9QtLSDe JKhjCmp3GVCgLLM9jMF3 dP8tGZQqAIqww3M7vBB1 F4WpkqWnuj8pg6vc YBGlLPpwJ47avWXqk2Y6 GWXmnXH2TRXrzFhqAsSd pJ93Iio+ZRFdjYgjw1Jr Ezvtv8dck7nadQi1 IjMwJSIgdmFsaWduPSJ0 h4HuRa33I57wMKjtWISt MXAbQTJwCIBpiJgdfc3m uL7jTn5+PGNvbCB3 eKE4qS4pPIBfIbD2KEda I172TxIlbFXwYgldp8pp h5siyLc4TuIzNYPffsPu rHhzGJX8h5XqQk99 W56mSFgrXTByWNZuWEJb CNRmmFdqef8fvL3xPq0+ YE5yk5taaq67nT74lNH+ LCXfYFO5zTghLKvn HGAhcR2xKWcrOpH8NSYu DdBeoP53bLPmAPucDo8i sUjymSyeGW3zVMNrzolh u447GfSdg0arSCRt sDLfIXqjRNH0U77wc3S2 HDPsJUKjJWY1hTD0aM6d bGlnbjogbGVmdDsgdmVy jGktPWtxNHkjY597 IHRvcDsnPlBhdGllbnQg HjMiNMm4C5JtDrb4WEPv tWspJV2ypJNqLLceDi9t dFhpnWgxIS4tOHBv fhwjz719SmWcy5pyQLYo jJWbYGqdMYE5S24nv8Y2 QETpHGGzFNE2eMR7gQ8x bGlnbjogbGVmdDsg dwApcFbbQLjvEOenU372 IHRvcDsnPkJpcnRoIERh kYL5DM47SD66fAHez4E2 hLP4O1KsHUJwpwqy kfjqfPR0BRLeGGQxcQ69 Um3bbKysAe1iCUPiMUM2 WOCeaDPxO9ZxsB9qGrHb JXXhVVPtK1HbzMNo AXhfO820OCupLkK1LZQu zcJnD8EdAVGyrYuaRyR3 v9T7Xm8XN8C1BM05CK25 iAWnw1R1dMQ7T4Oo WZHxtmdhdvcyxSU7WOHf JJUdaM20Dg9jsYosMn4k MADmMJZ3QUNuwRAbI5Ds yZ3dCmDkLRSxCBJt E8YdxODhMCowM959QBhe HfZ3FKPitzQmD0HtOAEp xTadBrR3o0W0Mf3DCIi6 IB36CQ78dTXhz6M8 jGO8N7HoUGJhucjlxmav yMP2RHShQSTbpT02Ag9t eSvsHd1bBKKgPUP9DYSd iVEeI1GtgJ3oSeEp NEDdUBQoS3ApqAHgSPil F126WQdoDzD0KVWdgeSu M0TqEVIzzPvdErY5m3R3 Mz4AFUSiZF57BHX6 xCK2MY34KD75Z5BxTzjz dGFibGU+PHRhYmxlIHdp ZHRoPScxMDAlJyBzdHls FX3gGm1aBRVcQUKl nQneeXEnKnQrh6fmFBJr RVjwXU2gsYdxO6OhkXD7 EJNsc4u1Bn96M13eZ8Zm dXA+IIOzeMO4zTJ2 bU9bXcZmOxV3FZaiK280 OyKigQGsJmmsf7heb3fl nDg0QtU5WCOfgsIeoGld QWF6x0OyNd33F40c IHdpZHRoPSIxNSUiIHZh tOofra0sfO6lQb8+PGNv xFV1tXF9bZ5oUvBcEuR3 WVhiT666IqQznVBe Bxmsv2fdc8nxtDw1JkPd POXtczXdoKdoYSB2d1De Bg86P8JwjBzzl2TqZfo7 kt40pISkd3J3eHO9 F0CfGYGcstnxgOXvjOii DK2fNQVuqlhwGDAgsF4q FKXdW3y1MyXyImR3NZuf O6PzkfM3HTFxlKOu OOjnTRH5R63xv4Z3PWSn SSEkGQZ2zMG5iA4siCuh bjogbGVmdDsgdmVydGlj GWseXDyrH011XDDw sOuhCNOdzP5uYZIagSVa gRxiXM2cGCGvuqycTwDE Ro2TIegaT3OFQORMTUDq TTwvdGQ+PHRkIHN0 xYngSZouXNDqiZ8kQXFg C9j5UbKuLqU1OPztH8Bs JCIrtofvIl98hW9eEyDd AmV9OWqzA5TuzxU8 CJWtvZFbSVddQZM6H29p h0N5RKPjCSVgPNS8zAO4 dG9syKuhomkeqPSqcVdx dmVydGljYWwtYWxp T997ALWpvOfwTvWxYzY6 RfV9ZZd5B4OoFcp6UOZp lTyqTH5dnIFeSDvhSf4o cHnesMuqGA9sCIPv uzqkXXUhvQ9fIBAtpKMb pOjsZR2tOVUvhyyay221 FqTxOJM2DDOnmZDoL2Qd gU2oMgYySKSuNGZv T5DigRIpSMvuV151DRyw BeW2OGGluzExZ2RxHMBa xUdnPlX8s9K1Bj0yICQF ZWFyczwvdGQ+PHRk PRM4lYjfEDdaJLIzaS3w QYCsR0h0IlKkGeE0XGbh Y8EoPMFnzlciGr99nG9p TcZjIfE1UVmbS1Jg jwC7TKPhnZMwSOwoJKZ2 V01or0I8COZfSDKdEGV2 hNS1vW9ijUwmkfvqnEBk dDsgdmVydGljYWwt XJqhY584ZPUlpDtwKvPo bWFsZTwvdGQ+PHRkIHN0 tLjzZRpcKFOdbX3pACUd M9s8JoHbFyE3JOlh S4AvFGKevcvsWe43jO8g CrWiTvA1CWgtM1QywgB7 GLJacDTmSVuwWIY9B03d i9U8EPGdBFUwHIS6 zWP1oX8rzJhndjlglSKs dDsgdmVydGljYWwtYWxp D820NVNttUnmWf68pSJx qEgkhrT3Y5UgXpxg dHI+BY66NIPbZO54qIMf dQVre9ignHm8WtVlKQBc IKE1yZcrSTkve7BoJDOi Y27xzGEsw4Q4LJWy rIejcUNxXbFmnPF3qY1t OZkpjtvmm9vhffmoTkwa c0tyuc50pM75B56tHBxq ZHRoPSIzMCUiIHZh pKucay3ayV1eUp6+PGNv xDK5wQI6hJ4oRaQiKwU4 LBruM428YmRdsNTcRtbd l1rkh4tpbCl3KoNk SOZgdxWtgSqyHFL8y2Fp Pi02N67iDRcfSQYvIHIt RRZpLQWkaEwmgw6pdQ7n Ii8+YU7rq6xrjc70 cM27yHF+COTvXIM1sDnm GIrvMPGovP7oAVnzTbE9 BABjCvWcuL88mSUjWAmg Yj2qxRgkaWikSW8z VEJxihmdw568PgZwf9tb GNQzbSRqJTkcBUN2B39g y0G1LAViCVRnEMR0aLK6 cD2zkPnfyfgakBPi dDsgdmVydGljYWwtYWxp O165UEJcqBfbUeLroKYy S3hqenLMTY5hGcpnlID+ GHAwFSQ1cBsmHPxz VWZweX1aRYRrX0x5ZgIu HsA7QUolX3DcibK8CUBv iHPoWPYcsPRFdT8ywdvd s8zgxlgaDvZlILUx HYw0EEx2DOUovQomHwQf ITC0QoP6KZW5dZBbdA9c rWcjncooiN7wHpz+RklO OjwvdGQ+PHRkIHN0 yJzwTGwrYCElhK2sADJy S0c0RzCgJqQ7DTwsB9Ru vxC4XWDfuFCnQJSxdLSP oI2evqzqz3xaobkx CfGxCYZmHEh9VMz6VWNx zYwkLpDcTXP9TkL9CTS6 kPIknE2xvNguyidctW8c Oyc+TVJOOjwvdGQ+ KGWnAZZ2dKbkJCckTAUx vQ5rWTKfZ4y6AmJnYiS0 ULhcO8FbqvU1FFFnzNJe GPXuaFSZqK2hlzum q8zhtzlgIuBeXMYvYIb0 EJa0AGOdcBvbUcGjWLZ2 QyG7XTU2mFGjtI0vpDve caznoW1cVjj+UGF5 XYE8ID73YF05K8HvYurd dGFibGU+PHRhYmxlIHdp ZHRoPScxMDAlJyBzdHls IN5rNs7iGJFhNIRr bGxh (more content not included)... Normal [facility] RPR with Conf Rfxon 02-25-20 22 Reagin Ab RPR Ql (S) Non-Reactive Invalid Interpretation Code Non Reactive [facility] Comment on above: Result Comment: Perf ormed at: [facility] [address] [id number] PhD Ed Yeboah Performed By: #### 1 [id number] ####[facility] [address] [place] [address] Consent for Treatmenton Consent for Treatment [id number] #1.00CD:127 Normal [facility] Gest Scr Glu 1 Hron 02-23-20 22 Glucose [Mass/Vol] 121 mg/dL Normal 55-140 [facility] Comment on above: Result Comment: Posi tive Screen =1 HR > 140mg/dL Performed By: #### 1 [id number] ####[facility] [address] [place] [address] Hct & Hgbon 02-22-2022 Hematocrit (Bld) [Volume fraction] 33.3 % Low 34.0-46.0 [facility] Comment on above: Performed By: #### 1 [id number] ####[facility] [address] [place] [address] Hemoglobin (Bld) [Mass/Vol] 11.6 g/dL Low 12.0-16.0 [facility] Comment on above: Performed By: #### 1 [id number] ####[facility] [address] [place] [address] Physician Orderon 02-22-2022 Physician Order 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 05-31-2022 13:00-0400 Hourly Rounding Devin Pereira [facility] 05-31-2022 09:24-0400 Body temperature 98.06 [degF] Devin Pereira [facility] 05-31-2022 09:24-0400 Diastolic blood pressure 73 mm[Hg] Devin Pereira [facility] 05-31-2022 09:24-0400 Heart rate 49 /min Devin Pereira [facility] 05-31-2022 09:24-0400 Mean blood pressure 90 mm[Hg] Devin Pereira [facility] 05-31-2022 09:24-0400 Systolic blood pressure 125 mm[Hg] Devin Pereira [facility] 05-31-2022 09:24-0400 Blood Pressure Location Devin Pereira [facility] 05-31-2022 09:24-0400 Mean blood pressure 90 mm[Hg] Devin Pereira [facility] 05-31-2022 09:24-0400 Respiratory rate 15 /min Devin Pereira [facility] 05-30-2022 20:40-0400 Body temperature 98.24 [degF] Devin Pereira [facility] 05-30-2022 20:40-0400 Diastolic blood pressure 72 mm[Hg] Devin Pereira [facility] 05-30-2022 20:40-0400 Heart rate 61 /min Devin Pereira [facility] 05-30-2022 20:40-0400 Mean blood pressure 86 mm[Hg] Devin Pereira [facility] 05-30-2022 20:40-0400 SaO2% (BldA) [Mass fraction] 97 % Devin Pereira [facility] 05-30-2022 20:40-0400 Systolic blood pressure 113 mm[Hg] Devin Pereira [facility] 05-30-2022 20:40-0400 Mean blood pressure 86 mm[Hg] Devin Pereira [facility] 05-30-2022 14:51-0400 Body temperature 98.24 [degF] Devin Pereira [facility] 05-30-2022 14:51-0400 Diastolic blood pressure 70 mm[Hg] Devin Pereira [facility] 05-30-2022 14:51-0400 Heart rate 52 /min Devin Pereira [facility] 05-30-2022 14:51-0400 Mean blood pressure 84 mm[Hg] Devin Pereira [facility] 05-30-2022 14:51-0400 Systolic blood pressure 114 mm[Hg] Devin Pereira [facility] 05-30-2022 14:51-0400 Blood Pressure Location Devin Pereira [facility] 05-30-2022 14:51-0400 Respiratory rate 16 /min Devin Pereira [facility] 05-30-2022 14:45-0400 Blood Pressure Location Devin Pereira [facility] 05-30-2022 14:45-0400 Respiratory rate 16 /min Devin Pereira [facility] 05-30-2022 08:00-0400 SaO2% (BldA) [Mass fraction] 98 % Devin Pereira [facility] 05-30-2022 08:00-0400 Mean blood pressure 111 mm[Hg] Devin Pereira [facility] 05-28-2022 16:40-0400 Hourly Rounding Devin Pereira [facility] Comment on above: Result Comment: Patient declines vaginal exam due to expressing not having any pain or noticable contractions. RN notes decline. 05-28-2022 16:00-0400 Hourly Rounding Devin Pereira [facility] Comment on above: Result Comment: Discharge instructions g iven and educated to come to hospital tomorrow at 1700 for induction. Educated on induction process and what inductions intail. RN answers questions from patient. Patient voices no concerns and agrees. 05-28-2022 15:00-0400 Hourly Rounding Devin Pereira [facility] Comment on above: Result Comment: patient resting watching tv with fiance in room. 05-28-2022 15:00-0400 Promise to Return Devin Pereira [facility] 05-28-2022 14:45-0400 Blood Pressure Location Devin Pereira [facility] 05-28-2022 14:45-0400 Body temperature 98.06 [degF] Devin Pereira [facility] 05-28-2022 14:45-0400 Diastolic blood pressure 54 mm[Hg] Devin Pereira [facility] 05-28-2022 14:45-0400 Heart rate 64 /min Devin Pereira [facility] 05-28-2022 14:45-0400 Mean blood pressure 68 mm[Hg] Devin Pereira [facility] 05-28-2022 14:45-0400 Respiratory rate 16 /min Devin Pereira [facility] 05-28-2022 14:45-0400 Systolic blood pressure 97 mm[Hg] Devin Pereira [facility] 05-28-2022 14:00-0400 Promise to Return Devin Pereira [facility] 05-28-2022 13:00-0400 Promise to Return Devin Pereira [facility] 05-28-2022 12:00-0400 Diastolic blood pressure 53 mm[Hg] Devin Pereira [facility] 05-28-2022 12:00-0400 Heart rate 50 /min Devin Pereira [facility] 05-28-2022 12:00-0400 Mean blood pressure 66 mm[Hg] Devin Lorenzoten [facility] 05-28-2022 12:00-0400 Systolic blood pressure 91 mm[Hg] Devin Lorenzoten [facility] 05-28-2022 08:47-0400 Body temperature 97.7 [degF] Devin Pereira [facility] 05-28-2022 08:47-0400 Diastolic blood pressure 59 mm[Hg] Devin Lorenzoten [facility] 05-28-2022 08:47-0400 Heart rate 64 /min Devin Pereira [facility] 05-28-2022 08:47-0400 Mean blood pressure 74 mm[Hg] Devin Pereira [facility] 05-28-2022 08:47-0400 Respiratory rate 18 /min Devin Pereira [facility] 05-28-2022 08:47-0400 Systolic blood pressure 103 mm[Hg] Devin Pereira [facility] 05-28-2022 08:45-0400 Blood Pressure Location Devin Pereira [facility] Encounters Encounter Date Encounter Type Care Provider Facility Start: 12-02-2023 End: 12-02-2023 ambulatory EARL ZELDA Not Available Start: 11-06-2023 End: 11-06-2023 ambulatory EARL ZELDA Not Available Start: 12-18-2022 End: 12-19-2022 ambulatory Kaelyn X Orzech Facility:[facility] Start: 12-18-2022 End: 12-18-2022 Patient encounter procedure Kaelyn X Orzech [facility] Start: 12-04-2022 End: 12-05-2022 ambulatory Kaelyn X Orzech Facility:[facility] Start: 12-04-2022 End: 12-04-2022 Patient encounter procedure Kaelyn X Orzech [facility] Start: 11-28-2022 End: 11-29-2022 ambulatory Kaelyn X Orzech Facility: [facility] Start: 07-11-2022 End: 07-12-2022 ambulatory Devin Pereira Facility:[facility] Start: 07-11-2022 End: 07-11-2022 Lab Drop off Devin Pereira [facility] Start: 05-29-2022 End: 05-31-2022 Evaluation and management of inpatient Devin Pereira Facility:[facility] Start: 05-29-2022 End: 05-31-2022 Evaluation and management of inpatient Devin Pereira [facility] Start: 05-28-2022 End: 05-28-2022 ambulatory Devin Pereira Facility:[facility] Start: 05-28-2022 End: 05-28-2022 OB Triage Devin Pereira [facility] Start: 05-21-2022 End: 06-24-2022 Pre-admission assessment Devin Pereira [facility] Start: 05-07-2022 End: 05-08-2022 ambulatory Devin Pereira Facility:[facility] Start: 05-07-2022 End: 05-08-2022 ambulatory Devin Pereira Facility:[facility] Start: 05-07-2022 End: 05-07-2022 Lab Drop off Devin Pereira [facility] Start: 02-22-2022 End: 02-23-2022 ambulatory Devin Pereira Facility:[facility] Immunizations Immunization Date Immunization Notes Care Provider Shaun mckeon 01-18-2013 hepatitis A vaccine, unspecified formulation [facility] 09-12-2010 meningococcal ACWY vaccine, unspecified formulation [employer] [facility] 09-12-2010 tetanus toxoid, reduced diphtheria toxoid, and acellular pertussis vaccine, adsorbed [facility] 02-23-2003 DTaP, unspecified formulation [facility] 02-23-2003 measles, mumps and rubella virus vaccine [facility] 02-23-2003 poliovirus vaccine, unspecified formulation [facility] 06-27-1999 hepatitis B vaccine, pediatric or pediatric/adolescent dosage [facility] NEGATED: Highlighted row has not occurred!11-28-2022 influenza virus vaccine, unspecified formulation [facility] NEGATED: Highlighted row has not occurred!11-28-2022 SARS-CoV-2 mRNA (tozinameran 5y-11y) vaccine [facility] Payers Date Payer Category Payer Private Health Insurance [id number] 2020 Private Health Insurance [id number] 1997 Unknown [id number] 2.16.8 [id number]. 1997 Unknown [id number] 2.16.8 40.1.757257.3.579.2. 1997 Unknown [id number] 2.16.8 40.1.526257.3.579.2.7 1997 Unknown [id number] 2.16.8 40.1.069530.3.579.2. 1997 Unknown [id number] 2.16.8 40.1.848707.3.579.2.7 1997 Unknown [id number] 2.16.8 40.1.176545.3.579.2. 1997 Unknown [id number] 2.16.8 40.1.235940.3.579.2.7 1997 Unknown [id number] 2.16.8 40.1.315416.3.579.2. 1997 Unknown [id number] 2.16.8 40.1.799753.3.579.2.727 1997 Unknown [id number] 2.16.84 0.1.810606.3.579.2.1259 1997 Unknown [id number] 2.16.840 .[id number] Social History Date Type Detail Facility Tobacco smoking status No Smokin g Status Entered [facility] Sex Assigned At Female [facility] Start: 11-28-2022 Tobacco smoking status Never s moked tobacco (finding) [facility] Tobacco smoking status Never [facility] Functional Status Date Assessment Result Facility 05-29-2022 Functional Status No [facility] 05-28-2022 Functional Status N/A [facility] Clinical Notes 05-07-2022 to 06-04-2022 Note Date [...] complication. Devin Pereira M.D. eran Dictated: 06/03/2022 [id number] Transcribed: 06/03/2022 [facility] Comment on above: Result Comment: Elec tronically Signed By: Kelli DEMPSEY, Devin Collier\.br\Date and Time Signed: 06/04/22 08:08 EDT 05-31-2022 Note The following Patien t Education Materials have been given to the patient: [facility] Note HOSPITAL REGULATIONS : All [...] for details. Devin Pereira M.D. Dictated: 05/31/2022 [id number] Transcribed: 05/31/2022 [facility] Comment on above: Result Comment: Elec tronically Signed By: Kelli DEMPSEY, Devin Collier\.br\Date and Time Signed: 05/31/22 09:16 EDT 05-30-2022 Evaluation + Plan note Extrac noy from: Title:Post-LDE Author:Jose Miguel Garcia Jr., DO ate:05/30/22 Plan Transfer/ Discharge: Condition stable. Extracted from: Title:L&D Epidural note Author:Omaira Garcia Jr., DO Date:05/29/22 Impression and Plan Plan Labor epidural at request of patient.. [facility]07-06-2022 Hospital Discharge instructions Follow Up Care 05/29/2022 07:05:03 With:Dr. Pereira [phone] Address:Unknown When:6 weeks Comments:Call for any problems. [facility] if fever>100.5 F, heavy bleeding With: Services [phone] Address:Unknown When:06/03/2022 14:00:00 [facility]07-05-2022 NoteThe following Patient Education Materials have been given to the patient: [facility] Discharge instructions Follow Up Care 05/28/2022 08:38:04 With:Devin Pereira Address: [address] [place], [place] [id number] Business (1) When:05/29/2022 17:00:00 Comments:Call for any problems.Return for contractions closer, longer, and harder.Return for decreased fetalmovement.Return if ruptured membranes or vaginal bleeding. [facility]06-14-2022 Evaluation + Plan note Diagnostic Tests Pending * Group B Streptococcus colonization by PCR [facility]07[facility]22 [facility] Future Scheduled Tests Radiology* US Abdomen, Limited [facility] N[facility] No data available for this section [facility] No data available for this section [facility] No data available for this section [facility] Summary Purpose Family History No Family History Records FoundNo Family History Records Found Advance Directives No Advanced Directives Records FoundNo Advanced Directives Records Found Additional Source Comments Care Team (unrecognized sect ion and content) Personnel Name: Shanna Daniel DO Address: [address] [place] [address] Name: Carlie Leon Personnel Name: Shanna Daniel DO Address: [address] [place] [address] Name: Carlie Leon Personnel Name: Shanna Daniel DO Address: [address] [place] [address] Name: Carlie Leon Personnel Name: Shanna Daniel DO Address: [address] [place] [address] Name: Carlie Leon Personnel Name: Shanna Daniel DO Address: [address] [place] [address] Name: Carlie Leon Personnel Name: Corbin Henley DO Address: Address: [address] [place] [address] Name: Carlie Leon Personnel Name: Corbin Henley DO Address: Address: [address] [place] [address] Name: Carlie Leon INFORMATION SOURCE (unrecogn ized section and content) DATE CREATED AUTHOR 12/27/2022 [facility] DATE CREATED AUTHOR AUTHOR'S LUIS QUIGLEY 12/03/2023 [facility] FOR RECORDS PERTAINING TO PATIENTS WHO [...] BE BASED ON THE PRIMARY CLINICAL RECORDS. [employer] provides no warranty or guarantee of the accuracy or completeness of information in this document.
[2024-01-05 20:12] LABS: Age Gdln ACOG Testing Note (.); IGP, rfx Aptima HPV ASCU Note (.)
== END 2023-12-31 20:43 | disposition home or self-care (01) ==
LOC: LAB 20:42
PROVIDERS: Visit Provider Physician Assistant
DX: Z01.419 Encounter for gynecological examination (general) (routine) without abnormal findings (principal)
CPT/HCPCS: G0145

== ENCOUNTER 2024-01-14 11:02 | Outpatient (OUT) | payer OTHER, SELFPAY ==
--- OUTSIDE RECORDS SUMMARY | 2024-01-14 11:13 | XMS_ITS | CCD ---
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 Role Phone Shanna Daniel Primary Care Physician [phone] Carlie Leon Unavailable Corbin Ordonez Primary Care Physician Devin Pereira Admitting Unavailable Kelli, Devin Collier Attending Unavailable Kelli, Devin Collier Admitting Unavailable Kelli, Devin Collier Attending Unavailable Kelli, Devin Collier Attending Unavailable Kelli, Devin Collier Admitting Unavailable Kelli, Devin Collier Admitting Unavailable Kelli, Devin Collier Attending Unavailable Kelli, Devin Collier Admitting Unavailable Kelli, Devin Collier Attending Unavailable Orzech, Kaelyn X Admitting Unavailable Orzech, Kaelyn X Referring Unavailable Orzech, Kaelyn X Attending Unavailable Orzech, Kaelyn X Admitting Unavailable Orzech, Kaelyn X Referring Unavailable Orzech, Kaelyn Brooks Attending Unavailable Kelli, Devin Collier Admitting Unavailable Kelli, Devin Collier Attending Unavailable Orzech, Kaelyn Brooks Attending Unavailable EARL MENDOZA Attending Unavailable MAAME SUNSHINE Attending Unavailable Corbin Henley MD Primary Care Provider [phone] Medications Current Medications Medication Drug Class(es) Dates Sig (Normalized) Sig (Original) cholecalciferol 0.05 mg oral capsule (3 sources) Vitamin D take 1 capsule by mouth in the morning cholecalciferol (Vitamin D-3) 50 MCG (1999) capsule Take 2,000 Units by mouth in the morning. 0 Active cimetidine 200 mg oral tablet (6 sources) [...] q6hr, # 15 tab(s), Refills(s) 0, Pharmacy: [facility], 154.9, cm, 05/29/22 7:54:00 EDT, Height/Length Dosing, 84.5, kg, 05/29/22 7:54:00 EDT, Weight Dosing Start Date: 05/31/22 Status: Ordered Rvlcgqlc-Vnv-Cn-FA ( 1 + IRON PO) (3 sources) Ordewicz-Ayl-Sf-FA ( 1 + IRON PO) Take by mouth 0 Active Multivitamins with Vitamin B Complex, Vitamin C, [...] day, # 14 tab(s), Refills(s) 0, Pharmacy: [facility], 155, cm, 04/25/20 17:23:00 EDT, Height/Length Measured, 56, kg, 04/25/20 17:23:00 EDT, Weight Measured Start Date: 04/25/20 Status: Ordered Problems Active Problems Problem Classification Problem Date Documented Date Episodic/Chronic Anxiety disorders (5 sources) Anxiety 05-29-2022 Chronic Immunizations and screening for infectious disease (1 source) Exposure to sexually transmissible disorder; Translations: [Contact with and (suspected) exposure to infections with a predominantly sexual mode of transmission] 12-31-2023 Episodic Mood disorders (5 sources) Depressive disorder 05-29-2022 Chronic Other female genital disorders (1 source) Vaginal discharge; Translations: [Other specified noninflammatory disorders of vagina] 12-31-2023 Episodic Other and delivery including normal (2 sources) Delivery normal; Translations: [Encounter for full-term uncomplicated delivery] Onset: 05-31-2022 Episodic Other screening for suspected conditions (not mental disorders or infectious disease) (1 source) Patient encounter status; Translations: [Encounter for other specified screening] 12-31-2023 Episodic Past or Other Problems Problem Classification Problem Date Documented Da te Episodic/Chronic Fetopelvic disproportion; obstruction (2 sources) Obstructed labor due to shoulder dystocia; Translations: [Obstructed labor due to shoulder dystocia] Onset: 05-29-2022 Episodic Unclassified (7 sources) Onset: 08-25-2021 Resolved: 05-30-2022 02-26-2022 Results Test Name Value Interpretation Reference Range Facility IGP,APTIMA HPV,AGE GDLNon AGE GDLN ACOG TESTING Note . [facility] Comment on above: TESTS RESULT FLAG UN ITS REF RANGE LAB Clinician Provided Cytology Information Source.............[employer] Other.............. No. of containers..01 ThinPrep Vial Age Algo ACOG Hodan... 21- 01 FLAG LEGEND: L-Low Normal,H-High Normal,LL-Alert Low,HH-Alert High <-Panic Low,>-Panic High,A-Abnormal,AA-Critical Abnormal Performed at: 01 =G [facility] [address] [place] [address] Terri Cantu MD, IGP, RFX APTIMA HPV ASCU Note . [facility] Comment on above: TESTS RESULT FLAG UN ITS REF RANGE LAB DIAGNOSIS: 02 NEGATIVE FOR INTRAEPITHELIAL LESION OR MALIGNANCY. Specimen adequacy: 02 Satisfactory for evaluation. No endocervical component is identified. An endocervical component is not commonly seen in the patient. Performed by: Марина Stacy, General Dentist/Owner ([facility]) . 02 Note: Note 02 The Pap smear is a screening test designed to aid in the detection of premalignant and malignant conditions of the uterine cervix. It is not a diagnostic procedure and should not be used as the sole means of detecting cervical cancer. Both false-positive and false-negative reports do occur. Test Methodology: Note 02 This liquid based ThinPrep(R) pap test was screened with the use of an image guided system. . 02 The HPV DNA reflex criteria were not met with this specimen result therefore, no HPV testing was performed. FLAG LEGEND: L-Low Normal,H-High Normal,LL-Alert Low,HH-Alert High <-Panic Low,>-Panic High,A-Abnormal,AA-Critical Abnormal Performed at: [address] [address] Terri Cantu MD, Performed at: =[facility] [id number] Boxing Inspector: Terri Cantu MD, Phone: [phone] Performed at: [address] [id number] Boxing Inspector: Terri Cantu MD, Phone: [phone] [facility] URETHRITIS/DISCHARGE PLUS VA GINITIS (HTRX)on 01-02-2024 ATOPOBIUM VAGINAE 0 [facility] ATOPOBIUM VAGINAE Not detected [facility] BVAB 2,3 (BACTERIAL VAGINOSIS ASSOCIATED BACTERIA 2, 3); MOBILUNCUS SPP 0 [facility] BVAB 2,3 (BACTERIAL VAGINOSIS ASSOCIATED BACTERIA 2, 3); MOBILUNCUS SPP Not detected [facility] BASSEM ALBICANS, PARAPSILOSIS, TROPICALIS 0 [facility] BASSEM ALBICANS, PARAPSILOSIS, TROPICALIS Not [facility] GLABRATA 0 [facility] BASSEM GLABRATA Not [facility] BASSEM KRUSEI 0 [facility] BASSEM KRUSEI Not [facility] CHLAMYDIA TRACHOMATIS 0 [facility] CHLAMYDIA TRACHOMATIS Not detected [facility] GARDNERELLA VAGINALIS 0 [facility] GARDNERELLA VAGINALIS Not detected N S [facility] MEGASPHAERA (TYPES 1, 2) 0 [facility] MEGASPHAERA (TYPES 1, 2) Not detected [facility] MYCOPLASMA GENITALIUM 0 [facility] MYCOPLASMA GENITALIUM Not detected N S [facility] NEISSERIA GONORRHOEAE 0 [facility] NEISSERIA GONORRHOEAE Not detected N [facility] TRICHOMONAS VAGINALIS 0 [facility] TRICHOMONAS VAGINALIS Not detected [facility] Urinalysis macro (dipstick) panel (U)on 12-31-2023 Bilirubin, UA Positive Negative - 4(70) +++ mg/dL [facility] Comment on above: small Blood, UA Positive Negative - 50 Luis/mcL [facility] Comment on above: trace-intact Clarity, UA Clear [facility] Color, UA Yellow [facility] Glucose, UA Negative Negative - 1999(110) ++++ mg/dL [facility] Interpretation and review of laboratory results Abnormal [facility] Ketones, UA Positive Negative - 160(16) ++++ mg/dL [facility] Comment on above: trace Leukocytes, UA Negative Negative - 500+++ Kahlil/mcL [facility] Nitrite, UA Negative Negative - Positive [facility] pH, UA 6.0 5 - 9 [facility] Protein, UA Positive Negative - 1999(20) ++++ mg/dL [facility] Comment on above: 100 Spec Grav, UA 1.030 1 - 1.03 [facility] Urobilinogen, UA 1.0 0.2 - 12 mg/dL [facility] Coding Summary.on 12-24-2022 Coding Summary. CD:[id number] Gh0bWw+PGhlYWQ+PE1FV LPzO57osKSeyC0RI0yIB Y8ZRAJYTANYOO0GCR5na SS5HDtuN2IwxiPl TjyolZHaYC81PHe7HAE6 kYudLItefS4ipBNsQ2p0 OvVvEK91nM20ZNelPAVg CnO9KgIooieluFVv R7vzEzBggBEcAwh+PHRh YmxlIHdpZHRoPScxMDAl AwKppLduOK2xLj1tMGDd LWNvbGxhcHNlOiBj x4ayNOMtTBrqMW8txKdk D7HftDJ9WMYrx9g4Rg80 dHI+KNDgWXL0zBtjUHfk v280LqWzi0eiHOY1 jCIoYRkeIHV3S12yb3C2 UHEsSAXyXVW4vHW8pQ7j qJkplvwcK8MosRGmAsA3 FWA1oJXzgC7irLnx fovsyB3pGqg+X31ONH5V JVXQIP3ZMjv2Y8PeTctr dHI+EJ39LNHvPI83oCGo nASth1yibRv4SzBh BDVxUZA5lKwgBQlsn2Vv PPRrQ63bcAYcz6M1LHUd uUacdXIgVbKmoGL0kM8s RRkmbaqzc3dlvepy Gleqz5hlak66kJ92S46y CLwrSEGrVXE6UXWvECQo dAwcmy2lhM6kXj1+IDxj l5leo1gotZh4DhPv ECAvtzMtkUkrOOC3b3Ie Hd39L9VjvVkwj5XbRuh7 wi78iEUvo3R1rFF8FJwr XEZdiR4dEYptBgZ2 OQTcJpYxjH70cILvNJqx Lf1qtUkdaSogNU6xHDTi rdbmKOXjoJ7kHXUtgSPk yRcwFU2xQOZhzyhf d022CwFxKDL5XDUyzZIk R2BqhP2rBiSuVCEyHXOf F7EntORzBYmsK319OAtk HlB4XJSkrxMiM7Ys EHApoXqvNxT8g0H7Kn2Y b8EknxptAAL3FQooMSEx JuUyFeUiWyB4H3PpQib2 BHUvdZejOO0eI0Eu JXInfzdsgadvcCI8XGBf CSQagP04bMWnPEfoYx1t v6U7i359SJUeUYLnzJ15 Jb8cwOynVVLavIRP iM3qlhaoh3pupxzjZxBb TNHcQIr8RQs4LUCatHae QgGoMHG7JtI0YKA2rCPe mD8jkYshbprivS8u Oyc+B76dxU7pKQY6CTJ0 qkonRDEtnhQqVH10UL45 V5YfGscqdJCjgDQ+PGRp nbNzaYvmFX9xRuHt k0dcy8RjPFmnW9HmFRBl BPdvWnv7PRHxHUE6bVS8 wW8yDHRpBWgwl1R9zLO7 I9XrvyIwps5ow5qn RCTuUMscH87cjMYim2O5 SYTfpUQ4AZIvcSkwQwUa cT47Zhm+QBCxjNbvh1Lg Kqhrg5yng7axcSy4 IjMwJSIgdmFsaWduPSJ0 t6YhMt54T23jZLqhUJUz GRYwKDFuTJSgaQikid3x aC0kEy4+PGNvbCB3 hMA4tA4iWKUdAyN3BTke J112BpYefBQtHtkvq3ud i1vysOb9DpUfGGTfcpTv jQbpHDC4y2LiNy34 H56dXGxiLPNxBBPtCWMq CWCafJoefm1aaM9fGn8+ FW7xn6ovdy42fJ01kBJ+ FYEsRXJ5zMswCEpp KBIufW0pFMthSmN6GYMr PbCquP19nWTqOHccRx3p pPkhwDfgWH7aXOEvkopw o906UhInc5bkDMBl vMXqUNyjDMZ0O36st0Y0 LJRaLYDbJRL9uFW8mH1h bGlnbjogbGVmdDsgdmVy xQwpSWveLJsvR567 IHRvcDsnPlBhdGllbnQg AeRvLAw9R2YjRcp7IQAi gHzfLI9bxCQfKGuwYr3j nFbtiMvoFK7vNIXj dtzat718GjHmp5djIGRn lEZzVEndLGM0Y48nm4I4 EXRnGKNlDOU6wTT2uE1l bGlnbjogbGVmdDsg saIzzSozLPebOIwbB386 IHRvcDsnPkJpcnRoIERh zNG9IZ10DF90jVIme6L7 lPA2L8AiKXFdwtei jlcfkYR2PUXhGNBdlW43 Ry8kuEaqIq7wKDQiUXM7 ZOSczUEeG6FvnG3lUzIi COWsZMRmQ7JjwVKf JVwmQ515VSqgRsA0YRJx avErE0QgHEYrpWdmYzV3 s1C0Zx6MR2T0VD57HM51 xOLlj1X6eZE1U0Lv JUXzltluoxhrwIW0IAYs LHDxyU96Gu3zoKaiIn8m HDMqHQI1MFJkdGKyZ1Gt bJ7qYzImLKZnJSWs R7MscVOuCPgaB361ZGru KpN7GDIfoqZeC4WfGMQw pUzwDrW1p1D4Kc3EEWm1 HF24OS76lIDyc1B8 wAX7X2ToRQYdxwaywwmm qAF9RNWoLYDpxM74Ai0r tObyVp2zGJReWXH3UALr rWLmW6JbvB4dAaQz LHEuRCXbJ2MhmDCiWRct E739IYjlCzL2FGYawzXg Y9ElNFGpwCkoLtR0v3L5 Zk4YRQPlDT53CAK6 nKO0NO38GG31A6GpXuds dGFibGU+PHRhYmxlIHdp ZHRoPScxMDAlJyBzdHls GP8wLf5yDODcCTVp jJkhfXTkMeRko3vzSEBj UVazWA7stObpD1OogQD4 NYAlb7a1Qe83U96bV8Sw dXA+JHJirVK6kIG2 aO8aFkPhMlJ8DWejX970 QqEclWTjIhemy9fbu0sw lGc7IfR2STAvmmFxrSsl VOT2m3XdGf13T44f IHdpZHRoPSIxNSUiIHZh fFzsth8ogB7uCo7+PGNv lIV1eDO5mL2oSwPgFmO8 INweY656FoGmqBDe Wrixk3nhb3bguXg6ZmTp GRXljjIkrOikTUA0z0Tw Pi61Y6QpeOrvs3YhHbu1 ti75pHYql8P9wJE7 S9FrTTPdnlxcuKPvhTlk UY4fGGIoacpfQYKmhE4w KEWjW3n4LqWpThD0FWwl H6ZsxfN6MVKewCLx VZuiSSW1V49gm9R5IRRd MTTqIHJ7rLV4uO2riTkd bjogbGVmdDsgdmVydGlj JSfwDJlbW591TYFg xYokZOGzrC9xWRDfdCUm uUjnSM5rAAUjtbppRjXM Qh7KOdvmK9GEHCGWNFMd TTwvdGQ+PHRkIHN0 pZdvDUvqSHAnuZ0jKHZz Q4n9MhWjOeI1USmdO5Vi BERgjlpaLq73mW6dIbGq RyO4WUhsC3PkclK0 EHMdlUItAWfnSKC9F04e o7K4DQHjKSVhLTQ6hQU3 tL8jwJibduwkiNYvrLeu dmVydGljYWwtYWxp J893QIEzsAloZwSvVbW3 NwG8XYt6P2UpIbt6FNOu bFcuYH6utGDdVLpvGq7f wHeftEvyGP9pUOYc legvRYFhzN0vTBJrcBQu hEugFC6nFMPqgyfnm085 MuUxWOO7IMPthNPzM5Ml eC2xGqZgBEQaFGLw O9JniGEuAJplI591QOsc HgJ6CSIimtHjK4XlWPOy pUzyKhK5g8G5Be6pPFNR ZWFyczwvdGQ+PHRk YET7cJlaOZnmNJKdlX5p DLWnJ9t4JiBlDlT4IOmz P3GxHXWrflzoMz32eB8p KsRdHiW3TUtqF1Aj cmG6AVSfxIUnYUjdSTL6 H74ej8F9BQSmHNJrKBX7 oMR6rJ8tkIcnlvhwdZHu dDsgdmVydGljYWwt VAvwX888VQUyiCgwGeHh bWFsZTwvdGQ+PHRkIHN0 nLexWBpdNPKyqI8sAOOe H9m3PqZvTfL3DJvk X3JzAWUpsjnpRo21iH6u QgMnPcX0KAypM7TlmmI8 HBXumYKiUCdbOGA5Y06v r5E8ZKQcVNNuHNU0 yZK7hG8lcHiszxvcwGEr dDsgdmVydGljYWwtYWxp O121TQGqgXnzCm93aURi qUejgoV2K0ZtTwji dHI+LH13LEFzRX75yBQl lHKrx9bcwDg8AcWoQCXz KND2hDidOCqih4CbRSLm E47eiQDbx0S2CORw dCxldRHnZbDoeVP0dX6c KUualcsog2mjtutaFrzl e3eknx29gW86T64oHOdo ZHRoPSIzMCUiIHZh kZowbt3ckG4gSy5+PGNv wZS0sIL7tT4uJvFnJxB6 JGiiX168LnNhzSYmMlvi h2cve9zymHk8ZlMe EJTsihOogDauUUC2b1Ad Jz29E29qPTcvNLYdUIZd CUCrMFVtpBddwo1yhK9i Ii8+CT1cl6ndkm52 eE91tWJ+KETdZHP4lHhu SQtoKRQhrS4bOHsgHtA6 YZSqAwPezO00dLLhKKny Sf4ulSckmKvuKK5k YYNfxryix415JhEtv6nv YNXbbHTfHVebFHF5D37n q3U0RPJeMTOpOEC1cGP4 aU4rcLjjzchavKEs dDsgdmVydGljYWwtYWxp M601OQNdqJxiZjPgdFQq U3ksjaEJUF5tRomcuAA+ CHGuORO3eZriVAdx HNBieA9zVNLnE9p2YnDu GgB0PLbcF6VbowM3YVAq gCSuBACdpWNMtQ0whoex j0tnoymnGwXbNEYk OFt3PYe0VKJzmZhfSpOw JAE0FzU1GZY6vONafS8v gTpmtjsplJ7fVaf+RklO OjwvdGQ+PHRkIHN0 jBkzAInzWMLgnV8xTGGj H0r4EeKtErN2YUfpK8Ha vzL3KMYozTJjTPIgaXHH wO4uijmlw5oqciix UzKdLJSeOJa2LBy8GCOz fHzqMqBlXQR2PrI9XVW6 hPXxqJ7xmCcxaygttQ3t Oyc+TVJOOjwvdGQ+ CFMhVDQ7hGevLSosTAKt wA5yOKVlS0g8TnEdNwR3 EFodF0YmhaM2TWWqtQAp FTMtfQNDvT9oyjax p7styuouQvVyKMYxLBq0 GEn2KROrsRjwUiNiPCV9 McL2LGY0gVQpxK6zhHnq tbxsnE3sLzd+UGF5 NDZ5AU09ME21N6PmJmtz dGFibGU+PHRhYmxlIHdp ZHRoPScxMDAlJyBzdHls EK2kPj7oYMXnTOWa bGxh (more content not included)... Normal [facility] Consent for Treatmenton 11-25 Consent for Treatment [id number] 30 [id number] #[id number]:[id number] Normal [facility] US Abdomen, Limitedon 2022 US Abdomen, [...] Daniel Meier MD Transcribed by: STEPHANIE Technologist: BETH Trevor [facility] Consent for Treatmenton 11-24 Consent for Treatment [id number] 30 [id number] #1.00CD:127 Normal [facility] Family Medicine Office/Clini c Noteon 11-29-2022 [...] When Contact Information Shanna Daniel DO C, [facility] [address] [place] [address]- Additional Instructions: Patient Education Cholecystitis BMI for [...] Alcohol Use, 04/25/2020 Employment/School Employed, Work/School description: [employer]. Highest education level: University degree(s)., 05/29/2022 Home/Environment [...] vaccine 06/27/1999 Recorded Date correction Normal [facility] Comment on above: Result Comment: Elec tronically Signed By: TAISHA Rodriguez APRN, [place] X\.br\Date and Time Signed: 11/29/22 14:43 EST Patient [...] care after the procedure. Medicines ? Take njhx-xwv-xbvjwpz and prescription medicines only as told by [...] 11/10/2006 Document Revised: 03/19/2019 Document Reviewed: 03/19/2019 [employer] Patient Education ? 2020 [email or web address]. Nutrition BMI for Adults Body mass index (BMI) is a number that is calculated from a person's weight and height. BMI may help to estimate how (more content not included)... Normal [facility] Coding Summary.on 07-17-2022 Coding Summary. [id number] Gh0bWw+PGhlYWQ+PE1FV GEwF69xsLIevO2IZ2fRY V6EZNOSRYVEGA5CHG5lx FU1PEgzH8VwasYm XndmfSFtUO35OAa3QLF7 fJgfUEtczO3glYQvV9d9 VfNcIE33pT38FEkeQHFm SmW4OuYrszfwpYJi R1mgOeIjhJHgMzs+PHRh YmxlIHdpZHRoPScxMDAl OdUczKfhYZ4qFy3qGCEq LWNvbGxhcHNlOiBj c4ejEZQcGPezMM1sxQmn Q9ZuvUH1UUSpf9v9Yc83 dHI+XSAdDIO1kFcrGNji m937ZuLex5oeEHZ7 qCKsFMhyZXP2F45mh4N2 XDCrQWHlVAX3mZO1pN7s jLxbjhefH1DwtXCjVsS1 WER7tAUeoF8rrMzd mmlygY6cDjy+U81MOY8V FKFFUE9PPjc7P8VhEkuc dHI+LI50ATJoBA20oNZz uKXjt7fdfNj3LrWa FJXgTDK9xPtgYJmmb7Vj ANSgL31jpMFbx2R8VZZa rDyztHDsWwMfkYE5vJ0x FWchtyowa9funugv Unmye8kkke77sN04J37i GGwqYTWwBNP8FQKrUFUm lWykhg0poP4nTh7+IDxj x7ymh2nnhNm7YeCz VWYcigLndFfoEWF2z7Su Gj33Y7MdhMxnu8IiAuf3 rk94eDTyi8W1cXE6ZWtg ZIVfiV0tJWkdRqT0 KEDdIrUqcY98cGJmFHnd Zm6exZgvaBhaWN9jHZAh mxxoEASehZ9mAEEfmPVx aPdyJK0lXYSebdvn e427TeOdMGW3ILLznKGq I2XjoC1gZdOcAACxNJMa G6VjlCGdBKgvA657SLxl AsD5FNXouhArA8Lk NXLnfLslZxT6a4F1Mc8T a6KrlxbsRYD4GDvxPAG1 SgS6LbUbByA9Y5TjObt4 BURayPloCY2mV0Aj ZGBlnkobpyijjCB2KKOr UFGmkG63dDWsHSztYq6x a2I3f535QKHvTFKpyS90 Yr6ncWxuHEFjdYWO zL1unuixy1capnycKsFp PFDiUCj0SNt1SNIzsDqv KaRxEAX8LeI9UFY1iGUk hJ6oiLzaxmdwoS3c Oyc+D39rrR9yFTI6BJU7 apwwHPTlohPpVK81XS06 V9TmLvexuMGxtDN+PGRp qgLxzNrxAE5iGoPt o9ghq9RsAOocQ9AuUNJl QTtlKml6RPMbMNG9cQE2 iD8mSVAvNPbpj1Q4cNB1 H1NtnzYims5sb6tr VLSpYVhrQ30deLEkw9E4 YCIlwNL1MNCsqKeeDdBb sO26Oor+AFMesStfi8Vw Qhinh7cdl2bksXk6 IjMwJSIgdmFsaWduPSJ0 j2YrCz81C06eTOzoXGYe OZYiPDGlJTVxbYozwv2a bZ5bMi9+PGNvbCB3 jCU3rL4pDGRhPfK0EOij V549FhWqxZVdLdapz1yp r3gigOj8ZuCpDBNckpFm nLtwLEP0v9WfDt25 Z78aSGpwVVMqFHEwYDIe HJIzmWexbc2smK4eTx0+ YK1xy6hgbf02kM75rLP+ QJJnLXW7hWjwQEeo YWIhfH5tQEcoXpE2UHHf BiFrkQ07iXDvQXajMa5d uCcgkCyrCS0hNIIkaaqr z853YmWur3pqWEGo dLDpEMxbMNX7S64mo0H9 UZAlRNUbTAG1nVO0iA5f bGlnbjogbGVmdDsgdmVy rOynPMldZNxdR767 IHRvcDsnPlBhdGllbnQg LgWkXJw6S3CoMdh4AFMf uQspGX9byJCqEGinWz8p kWeybCakMH4bPWVw veahi902WcReg2ojNSUt xIKePDpdHFA5Q08ud5B4 MZCaUEGnTEX3kTM2vE0q bGlnbjogbGVmdDsg dyGmvLinYOszTZaxQ793 IHRvcDsnPkJpcnRoIERh nWP5PR23GQ97cHHvc8Z2 sXR6V6UmTVJtkzmz kbewrPL1EJCjWKNxaP05 Hl1fjJeaPn9kXIAoMFI1 OGOefZZeU1MbeP2gLcPn CIQoPRSfI2BjuALy OTxiX159SEoiSrI0NTTr zzAfC3UfEJQgvHrzUdD6 j6Y3Tk5KV3F4PI04MJ65 qUOfv5N4wCR5D1Nc CAOvhgdsfhqogFD3MKZq BNKmbM43Ul8fdBikXc3z BUGfDVG8TIPdmEDyB3Xc lX5pAxQxFCLsPXVs W1EzsBUjEHfaP422YFzh YvS1IFSfzkRuU5UaNTTp rBizNzM4t5T0Oq5PHHh1 AQ27WH77lUAvf6P5 kCQ1V4YmWMPhtiyaseyr qOA5QCHbFRMpoO25Tl5z jWenDk3gVRGeNTA0ERIs sGArX1GvjW1kYrRj BEReQXJjL0BiwOVdXEbf E031LXrgFyY2BYMjcwVb U5ByOCWycJwpPnC8h4R0 Wp0GDJHqWB36XDJ0 lVS8PD22EF73O2PvAhqc dGFibGU+PHRhYmxlIHdp ZHRoPScxMDAlJyBzdHls PL0tEm7tUXGpNBUy zLelfFGlKyDal1uiJSPz HMbaIR8ndSopP9LbtTY4 DJLdw2r7Jv50F68kP8Ho dXA+NUZkqSD4qZO8 fP3zVdUhQkZ8JFdvJ068 OySuvDIkLnjtt7khn3sf bDf1WgZ0AMAscqPhqUnt LXT0d3NiBe24R05p IHdpZHRoPSIxNSUiIHZh lIfodc7mcF5aLz5+PGNv vTJ0cWT5vP6sAwSnPkM4 UYiyI950ScJblOFq Vrfdv1tum3vpvVw3LeOk TUAqvkNcmHtsNMI7q4Xj Lv53F7HmzMmii1DdNag7 aq14xGLyx0I4aLO5 X0KgFKUyuaropZOraPcl AI9jRUVdkpzsBIDizU6g PXRtH6r6VcOcNgS0KEou G0AodcD6TNVwxHIq EHriZMZ0K28iq4D4OOVo WZJuSUP6mOI0eS1paAox bjogbGVmdDsgdmVydGlj XBomYYuwE682KILn rYzuALAvhC6iBZUdhZWb rHaoOJ0oLJNcokirOtKV As3WOmerA0JLLHNEFBZy TTwvdGQ+PHRkIHN0 jRzpFMfgNSOugS3rMDPs D9y9LdLuRpW8GFyrH6Kd OOTbpktmFv75tJ2lHiZs JmC5KRxaM1JpnhO9 OHVwcCHbSVooFIN0U60i q8Z0EWMyQIUrFGB9lEU8 hO7wqXyyllgbhCZqzMjb dmVydGljYWwtYWxp V355MAPawAtcRjIyEdB6 RnT1KUi9X1UnSin5VMDs hWblPF9bvFRdBYjiEv6y sLoodTobEV3gJYEx snlaRTOwsY0vLPDobAYt nNmmHW4iEGWjdahts044 JpEeHOX4TIMbtWXtT4Db bP1iSkRoZXIjYDDl U7WckZDlXJmsK669AGis NqX2IZEytvOdE4MjQUDx mOaxQhK0b5H3Ni4bZIUV ZWFyczwvdGQ+PHRk JYW8qOkpXIupRMBgwU0g YQDyJ0d2SmVrCoV9JEfh Q1KjGNZgorkyIg22xT4q KiXbPqD3HWkoS6Ud wrG9GRIicRFvHAskUPR7 P67pr7R3FMRnDXFeELO4 rTF2yW0yiZdobwaqbHUw dDsgdmVydGljYWwt EYqaW639XMLsvOsgVkYd bWFsZTwvdGQ+PHRkIHN0 oFwpAZbmUIDpmO2cNDBm U1v4BcByEsI9XUik F9FxXWGwvxeuYi15uH7b ZhQvTjK0WGmuD1YuhwR9 MPTgnWBwTTlrOTG2P76s l7S8EEXuDTHvIQY8 yGV0qG1tgBiwjrtdpTIi dDsgdmVydGljYWwtYWxp F174CJRheOowTojoTgBW yl3dFF9sWjwcqUK+ FL26tv50A8XaYgqrImg1 CNUnFFE4cQM2bB8aAGDv XMgio7H7jTC3S5UbrnDj np7bb0dkRCLfWOiy H16ydWIrr9X5DQLacOT6 RFGouLxeGvYmsP77Hqb+ NOIprJrvj1UuChhoe6mw d9whjUq4RuSwZQLv mnTrsHceVBD2o5QbYm86 K37fZVizCGCwKTWcYOFs AOJylEyimm2duW3mAx4+ HSWpcXF8fRE7nC4x KfYtJiU7WPwwB235UaQh qAJwLxywh1pbz9iggZx7 IjIwJSIgdmFsaWduPSJ0 n3DaFy10Q0NmhJev v6AzWnq2dz68bMMul8V8 lCP1Z1ZwUGDwcccfbATp iFotNQ9cXPKeqeyiJPRc kH5zGTWzH5f7OwMj QnE7HWyzI7NzusX2MNMi pAWfTLMwuLICwQ1iltvf u3inpgawEmPnNMXqNMc4 RYt7YNLnoCkiFxNe KBL4WzB4VWT3kKLfwK7f kNdzccjbmM7xAxj+UGh5 p8qrbNBnSE8vrIL3OK16 LW09pAOaq8Z5cEN9 F0HfWHDaggzupzmgdJE2 BZUgPPTuiT15Bf4ybRgy Qs9gRBKzMIK6VLZnsZYy B7ZluX7dZvGtUUXk QGAuJ7TguPCfGAiaI647 XQsiMiP2MBWwhbZqG5Jn QDWxeRnrPuC9d6R3On0N PW33WS26QG53rGNu u5D2mRP0H0IfYAJroivo cpvwvEQ0ODHpVXHstH49 Rh5iwMkfAu1nKIAzPNI0 HZUngLQlM2BibB7l QnIaVKHnZPYrI6DgzGWf LZqxQ881YYapYaO8PYVo pkNrI4YiSCCefVjaBrW9 w5K4Rv2SHk75TP27 HW32wRGpz8P2yXU1T0Ti FBMohukdwqhltWI2TAOw KWCvwZ09Uh2xjIkjHg8n PWZgAXW0MWNffFTu W8OsxA5fFiFbBDOcTOIb D0VbpHSvHWpjK223ZZkh ZfH2MDMhqsOmX5WqKXCh eTndBqT8o9B7Op2Q DWyjlfl5J3ZxQfqekPW+ VU70DLSuGS33eEGzmAAe g4wihEc1VvYvKTRnHND6 tWvtTPoon7DoEFWs Y29s (more content not included)... Normal [facility] Lab Miscellaneous-LCon 07-17 Lab Miscellaneous COMMENT Invalid Interpretation Code [facility] Comment on above: Result Comment: Test Ordered: [id number] IGP,rfxAptima HPV all,16/18,45 IGP,rfxAptima HPV all,16/18,45 Note WB TESTS RESULT FLAG UNITS REF RANGE LAB Clinician Provided Cytology Information No. of containers..01 ThinPrep Vial DIAGNOSIS: 01 NEGATIVE FOR INTRAEPITHELIAL LESION OR MALIGNANCY. Specimen adequacy: 01 Satisfactory for evaluation. Endocervical and/or squamous metaplastic cells (endocervical component) are present. Performed by: 01 Maru Dong, General Dentist/Owner ([facility]) . 01 Note: Note 01 The Pap [...] High <-Panic Low,>-Panic High,A-Abnormal,AA-Critical Abnormal Performed at: 01 [facility] [address] [place] [address] Terri Cantu MD, Performed at: [facility] [address] [id number] MD Pepe Murray Performed By: #### 1 [id number] ####[facility] [address] [place] [address] Lab Miscellaneous-LCon 07-12 Test Code 828872 Invalid Interpretation Code [facility] Comment on above: Result Comment: Test code corrected. RS 07/12/2022 06:39:13 EDT Performed By: #### 1 [id number] ####[facility] [address] [place] [address] Test Name IG PAP APTIMA H Invalid Interpretation Code [facility] Comment on above: Result Comment: Test code corrected. 07/12/2022 06:39:13 EDT Performed By: #### 1 [id number] ####[facility] [address] [place] [address] Physician Orderon 07-11-2022 Physician Order [id number] 26#1.00CD:127 Normal [facility] Reference Laboratory Testing Ordered By: Klever Peralta on 07-11-2022 Test Code 564126 Invalid Interpretation Code [facility] Test Name IG PAP APTIMA H Invalid Interpretation Code [facility] Nursing Assessmenton 022 Nursing Assessment [id number] 5#1.00CD:127 Normal [facility] Coding Summary.on 06-03-2022 Coding Summary. CD:[id number]:[id number] Gh0bWw+PGhlYWQ+PE1FV IWvO81weOIgyM6LL3yQP I8QREFTQNTCWL7WFK1co SR7BLdmA7YhvgEm AvyucCZrDC14HOh8EAI4 tPnjTZuyuH2xfACnZ6h1 SiCiKL23tB66GPkhUFLp DmN8QwLxfclmdFDj Q8koAlFxtONlHma+PHRh YmxlIHdpZHRoPScxMDAl FxDabSafXO9iZb8kDMZe LWNvbGxhcHNlOiBj r8zzDFJlDTsbBU9zvVjl Q6WppFY4HIYvj9t0Xw76 dHI+PRMyOFY8vSreRKsx e232LoJxn2laSQA2 qFVuOSjtVNK0O06ip5A7 HYNmRTAtFXR1gNH2aS3d xZsyahvpE2YooQAqXfH7 DZI3zDUvlU8bxGda cvwsnB9rYou+G01BJQ8H VNWHYH5HMty2L6UePfyn dHI+LR20TAMhSN20pNRs qSZts1lkfVk2VqBo SYKaGGI9oTwdJZxip3Rj RTPoY58mrNKha6L4JXUl gLqqkJNnTbAgjOD4xC2d ZWrmtqjkq6bjxvgu Vxice4lvla20zK05S59r TVgpEVInIXC0FZMjZZGi hKmiiz3grX2vWj3+IDxj k4agf3vajTf8FgMc THVhzvClsKboUTR3w5Tr Us75X8FbpSyjs6MuWdi3 ck72xGFcq1J9mOI1FTey KXTqsQ7qENfnJdU5 CJVfMqPzeR46aGUnGUkm Sm1bxFlvhSdsUP3pXMXb oqaaZQNnbQ4dKTSdxMVx qHvpSM5yCNGcpmre y802VfJeTBE6SPUssXNz J0LizU8fAlGwUKViACXu C4OsjNIeZQmbZ855SWql DmC5DEGtskDkU9Yt FPGgeLzwHxL3d8D8Ir2I z9SyjnjcCAL3AColMVG5 CrQiXaEoSjM0D2CcLcd1 WKKllVwtCS9hE0Pu QBLrxilyhqkpzTQ0PCRb YHMclJ35aPOpAFpnVh5n d6X3v943DPNrWIMknP14 Sp5lbPyzHERpwAVC bO6xhuluv1hnxypmIsUt MIEuBPi2KMc3ZYKmuBno AuWtXDK7MgQ4BAL8nOQb uN7ptYnhndiwdW9l Oyc+P05zeK3hJFM6SQY3 kpbyCBZqwcRuCD62JB21 V8GmLikggEXaoJP+PGRp smMuzDduXV7uBeOu v0nry9EeMRfcB7WgFQFj VGhuVdm8GZJeKTX5lJG7 sV8zGVFrLHjsq2U2iPK6 Q3QgctMcfr4fw9ol MYCjQEkiE44wdHHqv0A2 FIVwlEN3ZBPtbWssVqCx nM46Adv+SFIqlCwht1Sm Squff4ntv2wxoOb2 IjMwJSIgdmFsaWduPSJ0 n7AfAq97I61fORfpSJWz CCOjDWEmANJthAoqce8p iT7fKz3+PGNvbCB3 aBU3bY3iQRMwYfS8WCaa R330QwNbkYXvLjscc4ct l2bfiKa8KyOcLGPkkiSg dOciIRZ3v2SeNj66 Q03xFDhcCJHiDVTwSKJi WDSvdDlbax7tzS2jIv7+ CS3es4crtm58kQ20jBK+ DGYnTIW7mUwmVUkp EPOmsY0yQJesAiG2OZEi WuWhjT46eLHiOYzoCu7o sPfqiRpnNY8fZKEynkay z708FwKkx7rlVAUp jARzYYisIVR9S69so9X0 DEClAETnHRG2uXP4nQ9k bGlnbjogbGVmdDsgdmVy hJxoRJfbEZliG894 IHRvcDsnPlBhdGllbnQg XrPzTWj3D9IvYpj3DRMm cHxxQJ2wuCDyXMbpGa6i iUvtfGbmAF8hKSKm pwauc680GbQbm9fzROYn aUOsXNdfMGM8R65xn6O7 HFRnQVHiVTN1mIR4mU6f bGlnbjogbGVmdDsg hwXsiRfhRNxtRDojQ299 IHRvcDsnPkJpcnRoIERh oQP0YJ21CO84wIGyh2M7 fVG2I7HoICWjoiox amqjhVE0TLCvDXOkqH76 Km2fzRiyKj3oDWUrPIH5 FOUeuFHuL8DspN5gKiHg FLQuHCHcC3SijHZy ITsgA274RTstIhZ5IKIw vgNwG3OrFHIewPmeLdB1 w5G3Ie7LT6O6PN26ZL36 kCWvj8B1iSZ9A9Ra FOEcavmgbliqyBN4MQNm TAMjlX30Qn3ffAuwHd1q NOLpZFX8WTEmsLQmT9Mf iC6oGeBhWMKtSLDr J1FypIYoSHdsN319UEky XbI3EYYuhsAgX5CqRAEi dRvnIrX4s2C2Fk0JQTj9 LS82VC76zBSof3F7 kGZ7J6HaYQUlnmlggtvv yKS0JOGnMHTfaN20Ye1b dOouNd1gWNDeWPR9CPSx wUCdE9PehZ1gRnAk SYWzXAClH4QfcGCcZAtk N008EThhJvF3TUBvhkUj Y5FfIWSaoUocXbU1i8E4 Mx2QCBCkLZ72GVE4 nDU6JR79UL43X5QkDdsg dGFibGU+PHRhYmxlIHdp ZHRoPScxMDAlJyBzdHls MK8vDk5qZPAnEHGp oXymiQJrAvXmo1oyARKf QMbpXW7zwRdbK9HzrJH5 OCZso6j3Li55T92oD7Te dXA+BPKktSG3oDO6 cC4rNwTzAuX2XVfbX358 HpKrbVJfQqbak1pvf6hc yLq6OrB9JJYnvrWaiAwc TVD9d7LzSf67J37y IHdpZHRoPSIxNSUiIHZh tLismq9dqH5xAu5+PGNv wUM5fZN8wD5bNdWcFbP0 HRgzV868UbUsgBQe Slhke8ydb9fmbCi9EnSo INOedgDnfMjtEJS5g0Bp Ri06V8JrtXiph3LuKvp0 ta59oGOpe1A4oNS7 D3ElILVmephbaGBtzQme WK0cTUQetywmKNIiqA9r DQZgC6e6XmMzSfH0EVrb O5CtsrN8FTEwrXVe MVbnJFT2W97se2U2ZLGp QFLfRBC4tJZ4dM7liGdn bjogbGVmdDsgdmVydGlj JKjmMUzfK281YGIb wPfxYDBbvF9qPYTfySYp wWyySP8tKRJezribDrJC Tz3SAumzU8PBYAMWCCTz TTwvdGQ+PHRkIHN0 eHgoSWmkEPDqpO9sOJDg S3x3LzLyGlA1ZTyuW6Lo EWVxpwfjYw81jE8mQxHi KtT2QVkfB6ObwmY5 RLGwsXHwRVooILP7I37j k3O9TZNkKMKiNUM0xKV9 pF5bqJkbeheicHZgvLak dmVydGljYWwtYWxp U338UNHfaMhnSnQjHkW0 FfR9EYz5S7TvEcp8XGMn lOhwIW5hvNEpVCmhLk5w xTwkoFctEA0wFEXr ovrtRHEhlH0nKJMpeMPh gMbaWM5mCPHbojxht695 FpEyBNV5PYAwnBLuY8Zs dW4mAoYfLPZbBPZh W3IvvFOxCJjtZ100HWdd FqZ0NYGyljJbF1XfEFYl mNnsPuG6h8P3Uk6yZMFJ ZWFyczwvdGQ+PHRk IHW2pZgpZWxsIHUzgN9h PSGpK1c2ZhFwBiZ9XDmj G0ZiAPSgcyjzAd43zY9h XmKaTcI0KBtgE2Zv pbO7VRAodZJoGItgNSE5 D78nh5G4LMYzZXJlOMI2 vQG2uI9stKebxggqxGHr dDsgdmVydGljYWwt JJdsM551JTJwuXciBuRc bWFsZTwvdGQ+PHRkIHN0 vLwcAMlcJOXnhJ6jKKLs K4f5DnQsGeO8XZnm J4AzHAWemiusRe30xK9j HdFvOaS3GZqhR8JudyI1 AAQkeIPjNHnhMIW6T45p n9R0FFTaBAYsECG3 hMN0pK3zhUjlxrfdhUHf dDsgdmVydGljYWwtYWxp J116JLMpsAqcDaylsTM1 aWVudDwvdGQ+PC90 tz27P0GpOmklLdw8CWMw CSZ9cPU2jA2sPBWmRJqd u5W8iGP7L5CmvpVgro4e w7jjCBUmGFvtX06g gZPlg8R7GDCbsUY3SZSp xWfbViNypP77Lro+PGNv pTach7FyRrswi1erd5nq mKl2KuPpXOQgdhNj gFptJDN4x4HoJo31B43k IHdpZHRoPSIzMCUiIHZh cXeavk2bgX4lVy8+PGNv kOV7pHQ0tT9hIrGc UqB5LZdoE959DgGgcGOr Zuhah7nrq7qyoBh8QuDc ADCyzzZhbDimOQM4j7Ms Zl74D5IneQxft5Tt Rxr0nh48jNMgr3J6kPE9 R0FuEVIgjdkimQLfnOyt HJ4uBPKqkphiDYTkkV0u HIHgA5y0QjZnKuC6 VQhrW6JjooF2SXTfoSFw JBFshQVTtN2yvmwbo1ry yyerQaSsQBQbDOc5EIb9 LWFsaWduOiBsZWZ0 FbF2GLU7tYWqpL6pjUbe cwcwoG9wYau+ODf6u1ya iGZgJD7guWU5HM00QA90 jXTuw4X3sXA6A2Oi DJMtioexiteqzXH1VAYk DADbyS21Ay4xtFknQo8f QEGzFRD1ORHdmKXdG4Ti uB0zEsSzSOUhTJUj L4InbXQhVEqjC015LZwb BrJ3ONKsubDyZ3GaEMDl jZtwCfF0c3W9Yl5YFG95 WP83OH95sMEkw1P3 oCE1L5AmTKXvthbvmebt mWQ2OLJeGLCkcD55Cx5d hHbjRt2sTTSgAOC7AMTj mNHhL9VgrX4bGuDn DEJoKWTgC2NkqOPdRQpx P631IDhvLmP9MKCufrMw D9PwSCVgxVoeHkG4z7I4 La2VPb45NS06YH68 pFNuh2X4tWQ2W6JtAFQn wikzcbazgRZ8NIGcMKPa bF66Gl8pgAcqLc0qUZFk SOO2NXHxyULaQ1Hu zU5iBxRgWSOsLGXmX5We wXGrRJryI354AXiqZuO3 COBnrfYeD9FoZDEamDuh RnS4i1W5Nm8HDUnc gix4Q5RdNugxsYD+PC90 JRNhRC80lBCdtSKkv8ln zFz6XmCaPRLpVNW5sGfy VXjpc4QgOKAdS52f bGFw (more content not included)... Normal [facility] Nursing Assessmenton 022 Nursing Assessment [id number] 5#1.00CD:127 Normal [facility] Delivery Summaryon 2 Delivery Summary DATE [...] maneuver was performed to ensure that the infant's shoulders were out of the AP diameter. She then spontaneously delivered the 7 pound 14 ounce male . Apgars of 6 and 8 were assigned. Arterial cord pH was obtained. The placenta delivered spontaneously intact. Uterus contracted down well. No repair was necessary. Both mom and infant were doing well in the room. Devin Pereira M.D. Dictated: 05/31/2022 [id number] Transcribed: 05/31/2022 Normal [facility] Comment on above: Result Comment: Elec tronically Signed By: Kelli DEMPSEY, Devin Collier\.br\Date and Time Signed: 06/02/22 11:12 EDT CBC w/Indiceson 05-31-2022 Erythrocyte distribution width (RBC) [Ratio] 13.3 % Normal 10.9-14.2 [facility] Comment on above: Performed By: #### 2 [id number] ####[facility] [address] [place] [address] Hematocrit (Bld) [Volume fraction] 29.4 % Low 34.0-46.0 [facility] Comment on above: Performed By: #### 2 [id number] ####[facility] [address] [place] [address] Hemoglobin (Bld) [Mass/Vol] 10.3 g/dL Low 12.0-16.0 [facility] Comment on above: Performed By: #### 2 431589 ####[facility] [address] [place] [address] MCH (RBC) [Entitic mass] 29.0 pg Normal 27.0-34.0 [facility] Comment on above: Performed By: #### 2 [id number] ####[facility] [address] [place] [address] MCHC (RBC) [Mass/Vol] 34.9 g/dL Normal 31.4-36.0 [facility] Comment on above: Performed By: #### 2 005360 ####[address] [address] MCV (RBC) [Entitic vol] 83.1 fL Normal 80.0-100.0 [facility] Comment on above: Performed By: #### 2 660793 ####[address] [address] Platelet mean volume (Bld) [Entitic vol] 9.5 fL Normal 6.4-10.8 [facility] Comment on above: Performed By: #### 2 140167 ####[address] [address] Platelets (Bld) [#/Vol] 192.0 E9/L Normal 150.0-500.0 [facility] Comment on above: Performed By: #### 2 136077 ####[address] [address] RBC (Bld) [#/Vol] 3.5 E12/L Low 4.3-5.9 [facility] Comment on above: Performed By: #### 2 076038 ####[address] [address] WBC corrected for nucl RBC Auto (Bld) [#/Vol] 9.4 E9/L Normal 4.0-11.0 [facility] Comment on above: Performed By: #### 2 473630 ####[address] [address] Discharge Instructionson Discharge Instructions [id number] 0#1.00CD:127 Normal [facility] HEMATOLOGYOrdered By: Swathi Weir on 05-31-2022 Erythrocyte distribution width (RBC) [Ratio] 13.3 % Normal 10.9 - 14.2 % [facility] Hematocrit (Bld) [Volume fraction] 29.4 % Low 34.0 - 46.0 % [facility] Hemoglobin (Bld) [Mass/Vol] 10.3 g/dL Low 12.0 - 16.0 gm/dL [facility] MCH (RBC) [Entitic mass] 29.0 pg Normal 27.0 - 34.0 pg [facility] MCHC (RBC) [Mass/Vol] 34.9 g/dL Normal 31.4 - 36.0 gm/dL [facility] MCV (RBC) [Entitic vol] 83.1 fL Normal 80.0 - 100.0 fL [facility] Platelet mean volume (Bld) [Entitic vol] 9.5 fL Normal 6.4 - 10.8 fL [facility] Platelets (Bld) [#/Vol] 192.0 E9/L Normal 150.0 - 500.0 E9/L [facility] RBC (Bld) [#/Vol] 3.5 E12/L Low 4.3 - 5.9 E12/L [facility] WBC corrected for nucl RBC Auto (Bld) [#/Vol] 9.4 E9/L Normal 4.0 - 11.0 E9/L [facility] Inpatient Clinical Summaryon 05-31-2022 Inpatient Clinical Summary [address] [address] Clinical Summary Person Information Name: NADJA ADONAY Patel [facility] Age: 26 Years : 1995 Sex: Female PCP: Shanna Daniel DO Marital Status: Single Phone: [phone] Race: White Ethnicity: Non- or Language: Ugandan Visit Id: Visit Reason: WATER BROKE Speciality: Acuity: 1 PP Enc Type: Inpatient Med Service: Obstetrics Arrival: 05/29/2022 07:02:32 Discharge: 05/31/2022 15:30:00 Dispo Type: Home (Routine DC) Address: [address] [place] [address] [id number] Provider Notes: Diagnosis: (spontaneous vaginal delivery); Shoulder [...] Follow up: With: Address: When: Dr. Pereira [phone] Within 6 weeks Comments: Call for any problems. Support Group first Friday of the at 11am Call Dr if fever>[phone] F, heavy bleeding With: Address: When: Services [phone] 06/03/2022 2:00 PM Patient Education Information: Normal [facility] Inpatient Patient Summaryon 05-31-2022 Inpatient Patient Summary [place] [address] Patient Discharge Instructions PERSON INFORMATION Name: ADONAY SAEZ Date of : 1995 Current Date: 05/31/2022 15:48:13 PHYSICIANS Admitting Physician: Devin Pereira MD Primary [...] CALL 911 Home Treatment: Devices/Equipment: Special Services: [facility] Additional Instructions: Physician to provide the following pending test results: None Follow up: With: Address: When: Dr. Pereira [phone] Within 6 weeks Comments: Call for any problems. Support Group first Friday of the month at 11am Call Dr if fever>[phone] F, heavy bleeding With: Address: When: Services [phone] 06/03/2022 2:00 PM In the event that this physician does not participate in your insurance network, please consult with your insurance company to find a nearby participating provider. Comment: NADJA Jain CAMIELLE M, have received the attached patient education materials/instructio ns and have verbalized understanding. Patient Signature Date Clinican/Nurse Signature Date MEDICATION LIST New Medications [facility] [address] [facility], [address] [place], [place] [id number], [phone] ibuprofen (ibuprofen 600 mg Tab) 1 Tablets [...] to serve you. Thank you for choosing [facility] Normal [facility] Insurance Correspondenceon 0 05-31-2022 Insurance Correspondence [id number] #1.00CD:127 Normal [facility] Coding Summary.on 05-30-2022 Coding Summary. CD:[id number]:[id number] Gh0bWw+PGhlYWQ+PE1FV HApI64acEBuoI0AQ9iXB G8YLUFIXFJBIR9CMF3ew WV4VSucI0QcokMm RrmplOXqZF50GGp9EHD7 eIniYInhrV3xqVBxA2e9 OgOvNQ58rA02LUoyZSYh TnS5GzNzzvucuIQx G1ziNmUbzKYeMqb+PHRh YmxlIHdpZHRoPScxMDAl IuRxmSmzGH4xJg6jNQWx LWNvbGxhcHNlOiBj z7toUZTaBQzfAO9vpKjv G6HshUB1PROxq1i0Sn32 dHI+XUYyMMO6aMehHFgt f825FrZjw5cdWLY6 kXKwOYrfXRE9K11vf2S7 RNNpNGNfYNA6gJW2yJ4j gJoqcpfcS0RxsPWaPyS2 LGC5eWUsyU7toDjz xcnazJ1iJdb+Z18DVK2L KHAJDN4JKlc4W3OcJovk dHI+IA21EDUxAT31aMYi sDMgz4cdlQe6KpFn OAXaUVZ8lBljZIrwd1Hf QYMjP99hjVWno1T1MSZd pRetbXTmLpHwgIX0sW6w DUvfakqcp1szspts Sopvm7wrtc60yU39P74t RMwiWHPqSJS9KTImKUOq mMmyig1mvR0fOk4+IDxj w5bcg6kfcFf7GkGz CVDtqcSxaZszKSY6r1Qg Ak25D1AyaPjnj0WkJru0 cd02gZEex2W2zOX8NRxh QGFivX5lXMeuElA3 OPAyTrHsmB17xGNkPQrb Em3uzShzrBlbZT6aXEHw edqhEYChaD3tEZTanGXh aOyhBG0nQEGmfxsf c937MgTyGIO5TYAtoZAd S0CvhO7dPrJhBILoILFq M4ZknRFiWJoaZ858KOzi TqA5POMiqmHeY1Kf NINitVstLkD8g6N4Pk5S g8TxqnedCNW9OVrlSNC1 UgO2NtInIvX2G2NaXuz5 YUGafRrxBX3oM1Ql TGMitahaqesyfHK2QELm JPLjxC74mFCdCVhtBm0o l3A5i490RASdUIBpfY34 Fr9wvMwlJWWivDCK lE8ddrqun5zkqyinZsZe AUVdCTl4VOc2LSPgaXiv QyWhXTF9VeP9QAL7uUOy lQ9jtRyhcodcrI4r Oyc+N58hjG1oDAX4NHS8 cfzaRPRjexMtWU96UK57 D2XbVqypkNWkjYJ+PGRp ehPuaLizBP1vNbMt k4tss5PoWQbkK8VvLJWe VPfkCzj1VHNzLZX4gLE4 pT5eMOVbUCstr0P6rQS9 Z4JzsmWtge9jy1wz FFEvSEdsG13upTVae3F3 YOPlsZH3XHNzqUuxNmGl pV39Rod+UVBtiMsqr4Di Qqyvy4myz1ihwKp3 IjMwJSIgdmFsaWduPSJ0 h3WwAl95W87iCBfqZRJn GVTxGARaNDYqpZczil3g qX6aJu9+PGNvbCB3 yTS4yA1vJEMnGsI0CGgu K197XxEbnCInXeqnz7jv c1cnqXb4PbDbCMMssiOw oXtuPOG8w7FhWm60 L49tCDwdGRGuESHsGMYp SUEvyGinhf9nvC6gQj9+ YR6xc1utkd06hV70lDD+ GTNlMBU6vHoiJZjq SJYliV4jROunCfK9LTFk XbHsjR22wCRiSHdeGq3s lZsomYcxBD3aTGWjleqa o212ZaXkv1eoFPAb zFXvJEbcBZG8D64ci3C9 ZVNhEEDfWYB4hIW5iA5z bGlnbjogbGVmdDsgdmVy bSgpPJhuHJjeH626 IHRvcDsnPlBhdGllbnQg ZkPzCHw5U0NfDcm7ZBQi gHdbXN7cbQXnGQreKg5y tLtgoMjhTJ3rXDVr vknot986QrNmg5zlVKTn mZDzFNqnDVF9K98fx3P5 EBHqIVRqBAK5kLW6yL6l bGlnbjogbGVmdDsg veKsfFekHKlhFYrfG233 IHRvcDsnPkJpcnRoIERh cLV2MW43IH75pMPvv7E0 gIG0I5YfZSUaqfps kqrhdYZ2ZQGwPANuuA01 Bf1jpNkkOr2jFBQuJXH3 YDSquDNqC8GqrC6bBrLu FDFqBWQjM4VqfOMo ZNrzG363CCtoDyC6DDHm ehKbG6AaUEDmwIuwPlL2 p9M1Nb7BH5B4AS77OW85 uFWlg3G7nVA1K3Tk XVPflsdjpssjqOF4PNGk TAZruK86Fg7byYknDa7z PNJdSWP8HJVugINaZ7Sp lU8gNbOkPXGzDEIs N7BkpEMwPJofS942HBvf DcD1WIZbhlKsM2RjMPEb nCpbNnZ8y8O6Nv5NZAc6 FP56HS87gIUwh3Q1 qTY2L2SnAEMwfwbvanpd uUB8AXPeBMYknJ24Af4t hYpcKa7kWBKsZTD1GISw sQYuW8RsiJ9sJfXe RKPpOHUiM4CamFPbOJpu L547AGuvSyH8BQTywdGo B1JnXWYgiBsgYiN5s7A4 Sm4JSVAtXM20MWK9 lTH2KW20AN24V8JuBhqb dGFibGU+PHRhYmxlIHdp ZHRoPScxMDAlJyBzdHls MW9vAi0xESEcPGPd iHettNOyDcXcc1ciMVHb MFvbOZ9uzOepO2KysTX1 ODXbl9x5Zv29Z72sP9Nv dXA+BBKgxOR7gAS6 nK4xFfGiExW9UYrbD930 AoOlvGMhIubne8nvc3vk pPo2GgQ9KGGkwmYwpFdw EZV7p2BlXh48E61m IHdpZHRoPSIxNSUiIHZh eSumdx9kzD5cJp8+PGNv xDK0zGW7lF1aQmNhEiD7 KIkdD172HuNdxGDc Wevub1ngh0rvgEy0WqDc FBDeelCbxKwaYSD3r8Zm Tv73J6EieKbbp6ObLke3 zm67eREaz8O5uGF4 I0SmPEImkemerVEunPft FY1dGQQzxjiyIZRefR6c OCYcX1i1EjTtEuI0GZgs B7IfkyX7YIBtaWDc JUkxDHM7J68dq5C1YITu IPVvRTG6yFC8yG8vfMbb bjogbGVmdDsgdmVydGlj NKjuQQygA909WRHv sYehRETxfY1bQTXryTZz sMmaNX2mDUHhdmphChBA Hu3KCrfeP2VAEVQCNEQl TTwvdGQ+PHRkIHN0 fWgrOPvlJTDnhI1jNYWn C8q2BbYxCiL7GVqzX1Qa JMRbgfadYd93dC4eUsUf WdF3AKumA8LesrJ3 YSWbgLPcJRleRKV6A47m c8T7VZOiRMZlKBV3aNI1 gJ0gwCbdvoazlZYvsHji dmVydGljYWwtYWxp T961FBSjzPcvEdCfWoE4 ZqA7TTu0K8HoZwq8XURn zFdpTF9ntASnQGdjHu5x iWufsSzrAC9nVQNm shrkUSIwiH9hFUHpxSHy fIbrCQ3iKWXgttkyv108 PbBjKHJ7OTQlhHOwL0Ll qJ1bSuHnWITsJXEo F3DnrYIqBYjaJ167ITgd UfA3WCLoiqOaA9CePKJo cPchQqD6r1T7Sg4vTAQB ZWFyczwvdGQ+PHRk FOE2lGwbBXjwZXWnaD3q OQKcC5m7RlWuPbD0FRjd Q2AkRGRhchluIg80jQ9k LmIaNeP7LKquQ1Fw ghD6GEFasNQgBIknSQB3 B72qj6E3YLIwTQTsLWH5 aTZ6fN4apLkumfzkvTCn dDsgdmVydGljYWwt KKfvU464YRAynLfsLqUj bWFsZTwvdGQ+PHRkIHN0 lEvdBPxhIJLefJ1uIDFr K6s9ViNeVaD1BEwt Z2OnPENzxdydMw59hS5u WfOwKhC5HOdfV8HecjJ5 AEXicRSrCPetYDK3D04k i6Y3KHYmJORdIMV9 jJG6gL8rpTjbgvoxwOSx dDsgdmVydGljYWwtYWxp Z374XUChmRnrAq7TXTKg aWFnZTwvdGQ+PC90 uf35T7KxUjrqUmt6XAMs GQL2tPV0mG0vGGKdPDbx h6F8qOM3D1NgyxGplx5m s3gaWZBpZCpoI07w dRAwz2Y0GSEggBQ4ABUf vUebVbIsfZ42Imq+PGNv tSatw0ApJubtu8ofd5fx oZj5LcDjBYXfyaWr oUomYLM8h6TyZq73I67y IHdpZHRoPSIzMCUiIHZh hAbwxb8qoT3nMm1+PGNv pMC7bPN6hH4tWcQa EpU0RCwfY398BnUbhDBq Kwvls5uhb4ubwBs0AcEi IIZejxWpqUzkCBO9y1Er Np62Y6IubAfxg5Ht Tkt4as37hHSbd5A8gBL3 I8HxKNYjheufiAIuqLxk IL4fSAFnpllyEKIamY2f UEBkX9h5FgHzFiG8 KIfdP4MbepI5CHQpdCLd ETAntHLSoN8tathrb9um hsstYpSgTDMgBYm7DQo3 LWFsaWduOiBsZWZ0 UzV9XHS4oGFaaY9hdFtf oaetjM4aEby+FUf1r6kn qLOuIG7wcKE0IR07UT84 jOCjs3O6qTW6D4Nb NSYpzhscyzlqzVO7CXJj TRXfxU44Wx5ecRyeZn9z JCPqNRN1VHSnuBMwS3Qf hU7aZlOmWMTfJEXc K1UagBNcFKsxP593FOfn QnL2PTSrtgYzJ6JhKYCh rOkbKnL7j2E4Qb4NWH83 AU73FW28mOQcv4K6 nXR2N9ZbNYDcwdejstxb wCO9OSQbTSFzqT53Kc7f rFfuFn0jTWKqAGR4YKMu bWUeF3QggJ8pFqIs JJFoZVYtU5GjsKCqVWun J853BLzxKmS7TUBdepBj L1CeAUAnhDboSbK3m3G2 Or4GCz68UO07BN50 rOVmb2C5lGP1O4DlLJAs knxqemvrgET5OWMmMZDo zI06Jv5diTxmGi6nGYUp KQC5UHYfgKLfJ1Je xU7dOaXoFBXnQLPrT1Ut vSUqXSliU785ICkkHvJ5 FRXrmxJxR5LxAOIkdQxk GxD7d8G5Ut3JRIqt ztk4G3GeSrfsjQI+PC90 XTNpFV82jEApcCMcy5ar pCl3AhZpMKXaYPM9wFzn CYjeo8CtVTZkY92m bGFw (more content not included)... Normal [facility] ABO/Rhon 05-29-2022 ABO/Rh Positive Invalid Interpretation Code [facility] Comment on above: Performed By: #### 1 [id number], [id number], [id number], [id number] ####[facility] [address] [place] [address] ABO/Rh History Checkon 05-29 ABO/Rh History Check Verified Hx Blood Type Normal [facility] Comment on above: Performed By: #### 1 [id number], [id number], [id number], [id number] ####[facility] [address] [place] [address] ABSCon 05-29-2022 ABSC Gel Interp Negative Normal [facility] Comment on above: Performed By: #### 1 [id number], [id number], [id number], [id number] ####[facility] [address] [place] [address] BLOOD BANKOrdered By: Alexandra villaseñor on 05-29-2022 ABO/Rh Interp Positive Invalid Interpretation Code [facility] BB Subsection ABSC Gel Interp Negative (05/29/22 7:39 AM) Normal [facility] BB Subsection Blood Bank ID#on 05-29-2022 BBID# [id number] Invalid Interpretation Code [facility] Comment on above: Performed By: #### 1 [id number], [id number], [id number], [id number] ####[facility] [address] [place] [address] CBC w/Indiceson 05-29-2022 Erythrocyte distribution width (RBC) [Ratio] 13.1 % Normal 10.9-14.2 [facility] Comment on above: Performed By: #### 2 [id number] ####[facility] [address] [place] [address] Hematocrit (Bld) [Volume fraction] 33.1 % Low 34.0-46.0 [facility] Comment on above: Performed By: #### 2 709833 ####[facility] [address] [place] [address] Hemoglobin (Bld) [Mass/Vol] 11.4 g/dL Low 12.0-16.0 [facility] Comment on above: Performed By: #### 2 727563 ####[facility] [address] [place] [address] MCH (RBC) [Entitic mass] 28.5 pg Normal 27.0-34.0 [facility] Comment on above: Performed By: #### 2 961512 ####[address] [address] MCHC (RBC) [Mass/Vol] 34.4 g/dL Normal 31.4-36.0 [facility] Comment on above: Performed By: #### 2 257935 ####[address] [address] MCV (RBC) [Entitic vol] 82.8 fL Normal 80.0-100.0 [facility] Comment on above: Performed By: #### 2 [id number] ####[address] [address] Platelet mean volume (Bld) [Entitic vol] 9.7 fL Normal 6.4-10.8 [facility] Comment on above: Performed By: #### 2 [id number] ####[address] [address] Platelets (Bld) [#/Vol] 215.0 E9/L Normal 150.0-500.0 [facility] Comment on above: Performed By: #### 2 [id number] ####[address] [address] RBC (Bld) [#/Vol] 4.0 E12/L Low 4.3-5.9 [facility] Comment on above: Performed By: #### 2 [id number] ####[address] [address] WBC corrected for nucl RBC Auto (Bld) [#/Vol] 7.0 E9/L Normal 4.0-11.0 [facility] Comment on above: Performed By: #### 2 [id number] ####[address] [address] [place] 05-29-2022 Consent [id number]# 1.00CD:127 Normal [facility] Consent for Procedure/Surger yon 05-29-2022 Consent for Procedure/Surgery [id number]#1.00CD:127 Normal [facility] Consent for Treatmenton Consent for Treatment [id number] #1.00CD:127 Normal [facility] Discharge Instructionson Discharge Instructions [id number]# 1.00CD:127 Normal [facility] HEMATOLOGYOrdered By: Alexandra villaseñor on 05-29-2022 [...] - 11.0 E9/L [facility] HemeAutoSS Recordson Records [id number]# 1.00CD:127 Normal [facility] Progress Note-Physicianon Progress Note-Physician Patient: ADONAY SAEZ Age: 26 years Sex: Female : 1995 Associated Diagnoses: None Author: Jose Miguel Garcia Jr., DO Postoperative Information Post Operative Note: Day 2. Anesthetic utilized: Regional: Epidural. Health Status Allergies: Allergic Reactions (Selected) No Known Allergies Problem list: All Problems / SNOMED CT 362021709 / Confirmed Resolved: Anxiety / SNOMED CT 99837896 Resolved: Depression / SNOMED CT 649271987 Physical Examination General: Alert and oriented, No acute distress. Neurologic: Normal sensory, Normal motor function, No focal deficits. Review / Management Condition: Stable. Assessment Anesthetic outcome No post-epidural complications noted.. Plan Transfer/ Discharge: Condition stable. Normal [facility] Comment on above: Result Comment: Elec tronically Signed By: Jose Miguel Garcia Jr., DO\.br\Date and Time Signed: 05/29/22 17:36 EDT Progress Note-Physician Patient: ADONAY SAEZ Age: 26 years Sex: Female : 1995 Associated Diagnoses: None Author: Jose Miguel Garcia Jr., DO Chief Complaint Intrauterine Health Status Allergies: Allergic Reactions (All) No Known Allergies Current medications.Problem list: All Problems / SNOMED CT 850133643 / Confirmed Resolved: Anxiety / SNOMED CT 27456343 Resolved: Depression / SNOMED CT 991124826 Review of Systems Respiratory: Negative. Cardiovascular: Negative. [...] The PCEA was started at 1728. Normal [facility] Comment on above: Result Comment: Elec tronically Signed By: Jose Miguel Garcia Jr., DO\.suresh\Date and Time Signed: 05/29/22 17:36 EDT UA With Cult Reflexon 2021 Epithelial cells.squamous LM.HPF (Urine sed) [#/Area] 0-2 Normal 0-2 [facility] Comment on above: Order Comment: Urina ry Catheter Insertion triggered Urinalysis With Culture Reflex order by discern. Performed By: #### 1 [id number] ####[facility] [address] [place] [address] [place].plasma/Lithiu m.RBC (Bld) [Mass ratio] 0-3 Normal 0-3 [facility] Comment on above: Order Comment: Urina ry Catheter Insertion triggered Urinalysis With Culture Reflex order by discern. Performed By: #### 1 [id number] ####[facility] [address] [place] [address] WBC LM.HPF (Urine sed) [#/Area] 0-5 Normal 0-5 [facility] Comment on above: Order Comment: Urina ry Catheter Insertion triggered Urinalysis With Culture Reflex order by discern. Performed By: #### 1 [id number] ####[address] [address] Bilirubin Ql (U) Negative Normal Negative [facility] Comment on above: Order Comment: Urina ry Catheter Insertion triggered Urinalysis With Culture Reflex order by discern. Performed By: #### 1 [id number] ####[facility] [address] [place] [address] Clarity (U) CLEAR Normal Clear [facility] Comment on above: Order Comment: Urina ry Catheter Insertion triggered Urinalysis With Culture Reflex order by discern. Performed By: #### 1 [id number] ####[facility] [address] [place] [address] Color (U) YELLOW Normal Yellow [facility] Comment on above: Order Comment: Urina ry Catheter Insertion triggered Urinalysis With Culture Reflex order by discern. Performed By: #### 1 [id number] ####[facility] [address] [place] [address] Glucose Test strip (U) [Mass/Vol] Negative Normal Negative [facility] Comment on above: Order Comment: Urina ry Catheter Insertion triggered Urinalysis With Culture Reflex order by discern. Performed By: #### 1 [id number] ####[facility] [address] [place] [address] Hemoglobin Ql (U) Negative Normal Negative [facility] Comment on above: Order Comment: Urina ry Catheter Insertion triggered Urinalysis With Culture Reflex order by discern. Performed By: #### 1 [id number] ####[address] [address] Ketones (U) [Mass/Vol] TRACE Invalid Interpretation Code Negative [facility] Comment on above: Order Comment: Urina ry Catheter Insertion triggered Urinalysis With Culture Reflex order by discern. Performed By: #### 1 [id number] ####[address] [address] Nitrite Ql (U) Negative Normal Negative [facility] Comment on above: Order Comment: Urina ry Catheter Insertion triggered Urinalysis With Culture Reflex order by discern. Performed By: #### 1 [id number] ####[address] [address] pH (U) 6.5 [pH] Invalid Interpretation Code 5.0-9.0 [facility] Comment on above: Order Comment: Urina ry Catheter Insertion triggered Urinalysis With Culture Reflex order by discern. Performed By: #### 1 [id number] ####[address] [address] Protein (U) [Mass/Vol] Negative Normal Negative [facility] Comment on above: Order Comment: Urina ry Catheter Insertion triggered Urinalysis With Culture Reflex order by discern. Performed By: #### 1 [id number] ####[address] [address] Specific gravity (U) [Rel density] <=1.005 Invalid Interpretation Code 1.005-1.030 [facility] Comment on above: Order Comment: Urina ry Catheter Insertion triggered Urinalysis With Culture Reflex order by discern. Performed By: #### 1 [id number] ####[address] [address] Type of Urine collection method Clean Catch Normal [facility] Comment on above: Order Comment: Urina ry Catheter Insertion triggered Urinalysis With Culture Reflex order by discern. Performed By: #### 1 [id number] ####[address] [address] Urobilinogen Qn (U) 0.2 {[place]'U}/dL Normal 0.0-1.0 [facility] Comment on above: Order Comment: Urina ry Catheter Insertion triggered Urinalysis With Culture Reflex order by discern. Performed By: #### 1 [id number] ####[facility] [address] [place] [address] WBC Auto Ql (U) Negative Normal Negative [facility] Comment on above: Order Comment: Urina ry Catheter Insertion triggered Urinalysis With Culture Reflex order by discern. Performed By: #### 1 [id number] ####[facility] [address] [place] [address] URINALYSISOrdered By: Paulina Dobbins on 05-29-2022 Bilirubin [...] Interpretation Code Negative [facility] UA Auto SS [place].plasma/Lithiu m.RBC (Bld) [Mass ratio] 0-3 /HPF Normal [...] PM) Invalid Interpretation Code 1.005 - 1.030 [facility] UA Auto SS UA Spec Desc Clean Catch (05/29/22 6:35 PM) Normal [facility] – [place] UA Auto SS Urobilinogen Qn (U) [id number] {Quinton'U}/dL Normal 0.0 - 1.0 EU/dL [facility] [place] UA Auto SS WBC Auto Ql (U) Negative (05/29/22 6:35 PM) Normal Negative [facility] [place] UA Auto SS WBC LM.HPF (Urine sed) [#/Area] 0-5 /HPF Normal 0-5/HPF [facility] [place] UA Auto SS Vaccinationson 05-29-2022 Vaccinations [id number]# 1.00CD:127 Normal [facility] Consent for Treatmenton Consent for Treatment [id number] #1.00CD:127 Normal [facility] Discharge Instructionson Discharge Instructions [id number] 5#1.00CD:127 Normal [facility] Inpatient Clinical Summaryon 05-28-2022 Inpatient Clinical Summary [place] [id number] Clinical Summary Person Information Name: ADONAY SAEZ [facility] Age: 26 Years : 1995 Sex: Female PCP: Shanna Daniel DO Marital Status: Single Race: White Ethnicity: Non- or Language: Ugandan Visit Id: Visit Reason: CYTOTEC Speciality: Acuity: Enc Type: OB Triage Med Service: Obstetrics Arrival: 05/28/2022 08:35:16 Discharge: 05/28/2022 17:00:00 Dispo Type: Home (Routine DC) Address: [address] [place] [address] [phone] Provider Notes: Diagnosis: Problems Active (08/25/2021) Smoking [...] Physician: Follow up: With: Address: When: Devin Pereira [address] [place], [place] [id number] [facility] (1) 05/29/2022 5:00 PM Comments: Call for any problems. Return for contractions closer, longer, and harder. Return for decreased movement. Return if ruptured membranes or vaginal bleeding. Patient Education Information: Normal [facility] Inpatient Patient Summaryon 05-28-2022 Inpatient Patient Summary [address] [address] Patient Discharge Instructions PERSON INFORMATION [...] None Follow up: With: Address: When: Devin RIOS SHEREEN, [facility] [address], [place] [address] [facility] (1) 05/29/2022 5:00 PM Comments: Call for [...] Leaflets: You may receive a survey from [employer] asking you to rate your care experience. Your feedback is important and will help us understand what we do well and how we can improve the quality of care we provide to you, your loved ones and our community. It?s an honor to serve you. Thank you for choosing [facility] Normal [facility] Insurance Correspondence Off 05-28-2022 Insurance Correspondence Office [id number] 1#1.00CD:127 Normal [facility] Coding Summary.on 05-22-2022 Coding Summary. CD:[id number]:[id number] Gh0bWw+PGhlYWQ+PE1FV UViN85gkUSykJ9YZ5bXZ Q2QOKLQOTPQWA7HGK1bd FR0SKuiF9FdgdSu BfsigXEyKV52QNt4NWF4 cCkqWOcflZ7hfISdA7g5 TbKhNF95lG90RMlfMOHn NlU8LaCxkdxmdXIt X5jpGuBzfZQkGjf+PHRh YmxlIHdpZHRoPScxMDAl MwPpmTehJL7kNx8jOTEr LWNvbGxhcHNlOiBj m1sePWIuTBdhXK0abQhv X6OskBG9FHOgf7s2Ov61 dHI+LNUkODL8mWfeFZwi x281DhXww4xvDVY5 yYGbERgaDVE4K11dy5U9 IAXmBYLkREB4lXQ9qL8n lQyliuqgG7UduDVkEoL2 GSN5jHGdaB3vzLan cxqreH1eLwk+N34YQY0Z HRUDTE5JVpv9V8TrUskg dHI+TE25NDGdRX03cBFx gMSoi6eubTw5OcIy OJWnQMW1oJjePIcay7Vs GVDxK15ncGLtn3D4ILNg tXhdyJBeNwVvcMJ4kW7y GOqofhwpa2caisnf Mjkby4aksx94uO78N71a WAtqHLQbSIY9OKWaUMKp aSeeav8obM0hXn8+IDxj c2bsa9tneWf3TtTf OEHoyqPinZleEVN1d3Gz Nj49Z3AswPkuv4QjWsr3 mx41pMKsl8D5xWB2XLfr PHAqgR3bHFnpEgR3 YNFzWyNciK22rRGrYYrx It7rnGbflVtoNX2dNMKb mlmmPWAzlR5rLEOdvELn jSnzFR0eWGTnqrer w440XqRoASF4IYRmePFj V3ZhlP4qEkQpJCQeCCEg U8PmrMOlIHfqS100WGhv JrR1NQDxgiPdU4Ud ZASshZncMmI7g4Y5Gw8S e8CbcupuNFW1PUydNYJ2 AuT2IoGlTgO9A2UyOpf7 RYNuwBimNQ6iN6So XDTuajcfphuasOQ8ZGEv OTMtqW17mVBmLZxxDw9c w0W5m519FEXbIQUwyY49 Bj0xlSslSHKxbMLF tQ2ntbivy9oatcriOvPo TRUuFZa7NFt5ZVGhpDhk GqQmMAE2FdU8KOY3yWJm jI9ijRgyfafmmF1z Oyc+X02ieI3jRYL1FFC8 sdkkCZVgobCzPO71ML53 H8RwZsqjeOKsgSC+PGRp euOymAdoTO0qYbJq f6ptp0QpJLurL7YmLURr PMlgJys9OWHgNUB8fKW5 iJ8yYWQnURztn5S7pSJ0 T0ShmtKxay2ng0zi TTQiNGleC61abOZew1N1 LACieMJ5ORNoqBwoAiQc bX47Ctz+TSGwkRfnx4Pb Kikez0znf9qjjAv9 IjMwJSIgdmFsaWduPSJ0 v9ZpBf45M24wNJhdPRTb LDJbHFFnSAFxeKrxxs1f aV6oOw9+PGNvbCB3 nJB9fX6vNPHcQhG0HIje D045HsKcjZCrXdfpq7xi v0dmxAz4MrEtTIYtahMh xWslFXB1s4AdBa16 M40dVPrbIWQqFXGyEVRj CIDpwZskyb5ppO9cNs3+ WT3om1eboz61wN08rJF+ UHQjXLD9wCypAGul INIovO0iBXbqCeZ7DTAj FiPlqJ15iBPiBYgdSp0f tNrhjFhcOS8gRYHwywac h063SdEse5mhYYYa kCPuOYjrLYC0V84sb9Y4 KZMtWVGyBKM8pBW6hG6i bGlnbjogbGVmdDsgdmVy uXnrYAceNMezJ735 IHRvcDsnPlBhdGllbnQg HoJpHXc2X7WyLtc2YLGs wChyKJ0gdPGjUWmfZk3k yVzfwRovZU1uLLEg jvoyz683CyVrl0zlPLKx sKYoTFdfUEU8Q61je7N9 GXJvFMEkTUC7qOV5iR5y bGlnbjogbGVmdDsg zaXeoEjmRSipQZlnY735 IHRvcDsnPkJpcnRoIERh xQV9AA71UD87kDGho5T3 dJY3S4RkCXObpniu traorUZ7KLImQMQxnR07 Ii5mhIyxUl9cTSIiTFM3 JYKzuHTaS1TxoM0jPqHw ZYIwNNSdB1NgjBHl QFvpD359YJakGsA4EEOj doBxI8EiXHKelIeqEiB3 a7E8Gp1NZ8M8LW91ZP65 xSVev1F1gYE7U6Od JOVneexubwfscQQ6PHWw FRFeuD91Nl6caSlnEw1b YEGzSYK7OYOfkIRhO8Te sP6lKyOzIRUnPHUp R9OteQPaUTfrE542MZcn ZcZ6AJIkfzGvT7ZbTVTf lYabTqW4x0V8Kn5SEKf6 AV20MQ62jNVdz9O0 nCG7F5DyZILvithyryco tGR5JZZrXINmfL73Ki2n lWnwEg0iGVBhRSH6XNDf nDHwR2HwpB6wVgXm DQReMYQbA1WeyQPzYYku V482JQwpTrD5WAAkdaGj R9LsCMHbuTlwMpP5d1Y7 Fw7WGLOkAJ19UZU7 mGH2RK89RK43K7BwJksf dGFibGU+PHRhYmxlIHdp ZHRoPScxMDAlJyBzdHls GL0fRw0kNSEvYCLl fArdcNFqEqUba0tzGICv USmvLU4ngMmxJ3DesJI2 JUBsk1t4Lr75Y06cT4Iy dXA+TEHfpZC3hLB7 oC6hBaRlYvF7OBhnZ825 HyMwvALgGyeal7fwc5fv nPm9CsZ2OXWsmjLtuBry FJQ0i8JmDq64M24q IHdpZHRoPSIxNSUiIHZh rOtrel1ixG9cQg4+PGNv wUP3yFX0zS2zXsGxWsM2 CHwdM044YeHxjDYc Zpdfx0gjv4ganCl2NmBa HGLozoAjvLkmLAK2z8Jv Eq77J7KnrYyna7OzZtw1 vm00qPRdn1I3pLU0 X4KqHIMhprceyCDqiQps CC8bPGGogobfUVXqmQ6e HQAtO1n7TyKfFtQ2DGvi D7UhhkR7AKGyyVJm FXdfUPJ5W47jj5C7LGKu FEHqZWZ3tHE0zS1lbQqq bjogbGVmdDsgdmVydGlj KCdjRDheB990XTTx aXwwJGOrhE1zXWPrkRNv eGsiJT9vAKAmgfeoDiWC Qz4UTcgfP0BZZBXKBEDn TTwvdGQ+PHRkIHN0 rVaiEVovRLSrcZ3iOQDu Q0q6AnIcNiB4DYdhC6Be GZOjuytzXu54oN1kZpLj RwY3KGlkF3QodjU6 TYKonXIiHVgxPBJ4L50q a9F8LSNhFWKxPHY1uOO1 jU3vpGwvvbayoGFuhUwg dmVydGljYWwtYWxp V662FOHjeAcvOqYoWvB8 CvR3HNv5R6JiOme7DZOw vJbrWD9bzDSxIBktIi5g cObtgVemGY2gVUFz pktyGAHsaT9fTEJxdNUf sSigLC1zSVHctmtxm263 LpZaFFB0CPRblEGkX5Hu sW2qKcAbZXTgHBBy B6RotVCbFDijM716AGvj JrY6VGBpnwKwU3SiPAHk tXliAfU4n9X5Vd9cBGJG ZWFyczwvdGQ+PHRk FXW0vTtkCMesWOWlmL0u DRBuK0a0UhSyGkY3XJlm R7LsTFDltvvtNm85qE6q VcIsQzV7VNzpG8Ss yjH3XIOdzMWqMZkpYJM9 V18wf3Y0ZJYdEGSnPGC6 lAM1lH3mqSyryewnxZUl dDsgdmVydGljYWwt FMciD211SGHzcGtoCePy bWFsZTwvdGQ+PHRkIHN0 xFcdCOseNHUhpO9oWJMh Y0b8KrVmZgV1ODns Y5MqWSSzmhihDx67lG5t OoOyVlY2VAuhE6TjxdD9 VTAtvCUdLRcaPIG3F13m g5W5RKVfZGNzTZA7 bZQ3fR5irXlkwfqyyRDm dDsgdmVydGljYWwtYWxp I384COLsyEqaScpaMqPN vm3uXU4dLvdycFD+ FU92ml62L3AaYhkjGgw1 SYWsTDK8pIF4jG3qTGZz UEdwc5Y8hWR9A4SoieHe qy6lg3zuAWPeMRnc L63mmYOvy0Z1VYCsnLV0 NFKxsQhjVjThjX16Bds+ BIMolYqiv6QrPulsk0ij t9azcDv1KuIoLCXf uxKzzJjzYZB6w7MyZj63 U21cLGzfKWSmHDVbVGJe HFZbwTagyh8nqG6kDy4+ LFQukHO8aGM7rC2u LlNhVyO8ENzlE731YuHw dZIjHmvuu0hji1vbeDz1 IjIwJSIgdmFsaWduPSJ0 v4OuFg24F7BgrNjd s6IoNsm8xg21pUZch8T1 pFW8G0TeMIIezgjqhYTc fQpfLK3hGGBghjzbVOMf bQ2wMSAgE9a3OeLe AwI1RSuyC1BnkuH2ZSVj sRPfULTrvDGNuS1jmoez n4corvulIePqRNXuCCx8 DNb8UKHgbZlgJmJw KFQ9JsF1ADN0fCOszH3m jFvrmoexlF0iKmt+UGh5 o2qkwLRzQN1tvYC6EI12 ZC37gAJdg8J8fSV7 K6QbUWXjwvfpsicfmKE7 NUVnMENboO34Re3trGnf Ru6aTTQmRWD6GQBmgMZs D6XrbB4eXwTxLROf UVGqW4XfrGKeCOcwP194 UUsbSsW8IUUxpbIcI1Nc BUVqbHlkNjF9w5B7Ls9U ZE44QE45JP99cXSz q2L0jZD4Z8UjPSAiacyj lvpjeMO0QNLjEMGwvT83 Be3yvOldOr3zAIDfZRK1 UDDuhEVqA8WsiY2w HlHnBIZnMWVdS2WrcUEl HJgvZ083FMhyRoH3NPXl otDkN2HqEVYypPltNrE2 k0L3Bf1YOn89AN58 HB44rJSqv7X1xGO6D1Sq DJLsgvzdraitrNV1YPPx JDUbhV96Jn3hsXoxPe2i PFZiUGW8ULRazMXv N6OopL4zKbYfVEMySJMv A3QqzIUlOKxxG392BNtk XoY4IGPcqzZpR6UmEWEl cKosTzQ3k9M2Lq7C UNendav2X9ArZwvjyTB+ LL32QKKzDP38aFVagELz x2qfuTu2ReHpXPNlVZS8 yOkgNHprm8XhXJAi Y29s (more content not included)... Normal [facility] Group B Strep by PCRon 05-08 Group B Strep colonization by PCR Negative Normal Negative [facility] Comment on above: Performed By: #### [id number] ####[facility] [id number] [place] [address] Physician Orderon 05-07-2022 Physician Order [id number] 7#1.00CD:127 Normal [facility] Physician Order [id number] 6#1.00CD:127 Normal [facility] Coding Summary.on 03-06-2022 Coding Summary. CD:[id number] Gh0bWw+PGhlYWQ+PE1FV LHfX71isXChtD6DP0uGQ R6FLRPVURIUPE1CWA5np GA4IHshX2TgjdWw RxnuaUFoAX54BGn7FKX1 tNfxFPlwyL9erZLpU1e8 CzQsEP63pV59DBqpNNXg DcN5XxGnuptqiTOo A9uaApRzdFSmHqq+PHRh YmxlIHdpZHRoPScxMDAl WuBkrEaxWK2gFl9cNEEr LWNvbGxhcHNlOiBj v7ckQHNlQZtyBA0mwZmw I3MazHE9SAYtf6i2Rn30 dHI+JBXgXRY4wShiJTvj l637YeXjk9bmUBJ8 zAAcDNamZLP1N76xy1G0 SZNaEOVcQFA6qLR7iV8o rPoqnifxV6UlnBCjZxU5 QIR7hAHkiH9zmMcr owbrcS3fExb+M59OHC9P PMWSBC1ACge8Z3XmJwtf dHI+PO77XHOlTC09eRTp bASrb8cpzQq1XhYo NXYuHAY5tDcaZKawy3Oy ZHDrV50dzVDsg7I9HGAh dTcmhDIqPsUwaFK8bD1o KWsbahcjc3headec Xgvjb4jwdm29wK34O10h CMogGMElAGI0WNPwJSBq oEfhgj2vpC3eXs2+IDxj h8hnh7umwOp6UlDd YHRbtwCgjPjyJEG4a5Pz Nn25S1LlnNrmk4VkUji3 ah48iURrw0I6tDL8ELia KLUnlD6cEVkxFdU5 IQYuZhIwrK66nSQqKYgl Uk3scUhyzZlwIN0eEQUp vurqZXQwyS2uWJDjoVJm lPntPG0iWTWtcrdq d662TeCnLWH3ZUVdpLQc I7QfnM5jPpKmOEHdGUMq E1TbpOYmWGajF784QBqy IvR3HUIccgDmN6Cc IFHqxPceIcD6e0O8Ir4S r3ZtdkgiXDI8KUeuMNY2 CkQyUiGfJvX0U8GfFvb1 ZDUcdQzxON9aZ7Io RSDfhsexvdewdAP6XDBr LXXscX83iGBgHJcrDu4s q9Q8n106CUGtYOCyfJ46 Vt0eyZakQDHzfJWG kS1ftokeh2kdsanfOpVv FQLcLYr3CZc3NKEbaAur NnIzVXK3JlQ8JSC4qEHr vE6mkAvplchzqX5d Oyc+A45zkD2nGAL8DQM0 mhphDOJbevElVF67HF28 T0SkDfjrhYHnuBX+PGRp jfEqiWzvLR2kWbJh t4kcm1OjDJiaP5RlAXWi CUehDnu5VAVbQHX7yNP5 uK9dPWMtPBmnj0T1aGL3 L2QeouBttl6fz9cf ITDuWDtqF09dzQXeo8V2 KCXdzEX4SUOahRlwAkRh vR58Lyy+LJJheVpnf8Zj Vtymq7wzq1zreSt3 IjMwJSIgdmFsaWduPSJ0 l4RjGh08H85kVLyzGUYw ORPiSWEjPJOqaGhcgp0a qX9kRy8+PGNvbCB3 nVC7oA3pCVFhOwY4GDzn S914GwYbuSJvVlgtm5st k1xcyLr3KeQgVXBdmeKi zFtxKCS0t7VpLi29 D34bJFngVYDrNTObVAZc JFJgkAnwuf9veM5lHz6+ UB0qm1ywdl36lN02nLS+ NCQsCXH5zPtlATsc QSMuwN0qHBkgZxH6WLPs TeVsvU43zBOwVFtmMa5l xDagqViwKA9xVFVxgkiv p277MpYdr2xyVVCz bJLkGNfmNXN0M49wn7O6 TKFnVSDzEDD9yKO7hA1a bGlnbjogbGVmdDsgdmVy cHqrVGlfZYarG467 IHRvcDsnPlBhdGllbnQg YePdBCr5Y5CmEsz4OZDg lJmzIA8ofRReXPvdRq6f iCvlnZjdCY6oPEWc qprtv491AxEqo5bwTXEx pDFxUAraEDT8L50ft6Z6 AKCnHJZsZSB6oKJ7hU2h bGlnbjogbGVmdDsg tkPsgVspZLbnPGsmU859 IHRvcDsnPkJpcnRoIERh bFG8QJ25UB03eTGbj9D0 kXX8S9TtZSCautji ctbnyFJ7ROMaLOHdmD95 Bk1fgEuoKy3wWHGgNNU1 AXClhYQkJ8UxiN5yIbFq VMTlSGVvU7VdnZTy KOdxB837RFglLtG7SKAh vxKpD1HhMIBhtXukGbT6 c9V7Ru7CR2L7GY09NH42 jRGtr9X0gSX3B4Kd QLOqqiiuyysxtNL6VZRp ADIbnD77Ki5dlXcwOi5c DUAfWNK7PYXyjMYdA9Ag vG6xQrQbTGBjGFLo X6TspNUdYSlbQ389SDzo QgP2MBInlgMsY5KoKAUu bVhtZmJ2f2L2Vd4NPYm3 TX31RZ84cSDzs2F9 fKR4Z8LcNZVaikowqygn eAH0KJIuMYFhqL44La0v jPajBo5nSOEuBZQ3GAHx dPTfG9NjzG0pFmCr PQRxJHDhU5SdbQTkCWtz U832HYytNjB1JHKygeZc O0LsRNIymNoiBqN2r0R7 Gs5HJXBfRH86NPA7 sDS4LE75DA11H7BkSxgg dGFibGU+PHRhYmxlIHdp ZHRoPScxMDAlJyBzdHls AI8rJj5vRHXcOYMj pRactFMxRaWzv0tvSCUp COxwEG8uyBauH9DuhWF5 TLAqa6o5Kq23V68fW5Ir dXA+ANDltCQ6qOY7 dD8gEpJjPoU4EDvsZ653 XbErpREfIjkpq5lfh4jx wXh7RkP5WXSalfZjmPva TFD7u5TwYn09U97f IHdpZHRoPSIxNSUiIHZh eDnxwt6geO2lDf6+PGNv wXY7yEG5bV5lZsRgAtT2 GMusX912DcFjbRCx Fgrsd0nmx5kwpPu6ExIc GOLulxJfpVskQGQ6t4Hs Xa70X4QcuCanc3BbMjz5 um58hLRwx5J5lIK1 O8DwFXDvrwliwUEuqCyj LI1lZLHummndUFJajE3p LVPeL3j5KoRlCxV3IOzb J6PmppV1EQIviRBl STlbSQO3J85mr8L0JGDe QDZxHWF7nVJ8kS3hdMik bjogbGVmdDsgdmVydGlj RSveWQgcB962DWAm dCcnSVUolD2fETYehZCb pEsrDB2kSREbzaqzYkZA Ok9CDjhsW2VBXNRXMJHa TTwvdGQ+PHRkIHN0 sAciKVefJICblO2iAXKn G8b7TwBoUlH7GVbmK6Vp KTVjshsrXi05lK8vUqCk ShI0MIcoP6OeauW8 GSYvsFYaONguQQR9R79o c6P4IXMwKTZgCBM4iML1 iZ4kdCcsupzrcYXdhAtm dmVydGljYWwtYWxp S733CSAwtMbyGnYvJpM6 TzF6RQf4E8XbOui1LHEv fEnlSD9uiTPnSHeoSr5g nXbzkSbwLX8kHRGc vdzeLIKmjN0nQZYkjMCe jMpzSC0iNQEnbzunb991 SiHdOQM2OKWabNJqX2Xt iA1gXqJdIPBoYUIe B5WnqWLxCIinF410RRnb RvQ7HEGwmuUaD9ZkHVUc qPkdHfB7t4V6Bw2xXXLL ZWFyczwvdGQ+PHRk BHW8uPsaVIpzULRyoU2z JYOjD0u4DpItAcK0FRty Z9XdWEFlyoddUx11yZ8k JtDpPmW9ZAmkH7Sb crV4VRYwvZRlBNnqZMK0 X28ll3A9WAOpKIYkMJG9 mMX3vT1zoXfkexkukZPt dDsgdmVydGljYWwt UWtkH105FBQghGtjQqTh bWFsZTwvdGQ+PHRkIHN0 hXgmMRpwJXKbzY5nTGSv I0y1WeNvAjW7MJgv B8WoPYZelpcpSs18xO3i QzHcCgO6ZEieL7IvmmM8 OKBviMAsJUfjVQK0U23p d1T7OSMiNJLyKKO1 vCP2iV5eyNnrkilelASb dDsgdmVydGljYWwtYWxp L827NGUfhBwrEc08cDDa iNhpeeB6S3NzOokd dHI+JY86DFUrLB61jSVa nRAid1jryGi0MxIuNVCf ZPG2oZtrXVuti9DhKNWe R34meXZpj5Y7KZVb iOighKTqKlBexBF7pK2r IQwgrytqq8jgyiyjXuit d7kxjg15lG97Z39sIJkv ZHRoPSIzMCUiIHZh zIjbrt4fhN2cYo7+PGNv fGG4iZI3cT5oGgPiVwS3 SXrqM562QaAqtXRpAwik h2rdn8wcqTt4PlEj BUMyazWmcQuwWFB7r0Ys Ox88X96tYArzCZOsHGBg TTBwABWueIhdsv6szU8v Ii8+OI1oq8zwrs82 iQ33mIQ+DKGoRHU3fHfq EVcsDBDszW0tPNmzRjO4 AEYjMaPypC06rBJnGUje Gb9drDqwkTvnGT8v WRIwdbovp394LoCza3pg IVYhdNKfBZpxYCK4P82o q1D8IIFlLJYsKEC1pQH2 pT8ejYrqydhrzUZi dDsgdmVydGljYWwtYWxp G828PISmmUrzBcIdpNNa E5yozxHBAL8lBokmxGY+ NJBmHDC4nSthUQvk SPBscD4zOUQvZ4p7WqQt IaP4KKuwI6PsnbX1DPFm wVWiOGZtqURLwV6gavul v2wayqvlAdKbXLEx CGb7OPo5IFDmyKjpVrDi FQD1HfW4BJE5vXQknZ5m jBjcigzdlG5kAqs+RklO OjwvdGQ+PHRkIHN0 tUbaDDllBMPsiO8lHHDw W3x9RuDqSjC2ELjuU0Mr byO4IGCtqNAkHUWxvSLO hD8vzzqlv4iadkly KfOcVTTqXRv6OFb2BNPl tFpjEdSwKSF1SxP0NWM5 mVLykQ7ifSngwrgnsC3i Oyc+TVJOOjwvdGQ+ LZSwWRB9oLrgXZwhIGSp bK8lKRIcN1a5XbHbUiR2 WJkmV4FtbqZ4OZXubBEm NUAhlLLNnN2juxlr r2cjlruqJyJwPMElLLl6 KAi9QFUswAxfIwMoJKC1 SaX7JZT5rHChuE7rnUhc gqyfqA5dAii+UGF5 VRC2PI76WB63P8WaRkyf dGFibGU+PHRhYmxlIHdp ZHRoPScxMDAlJyBzdHls ME0bQt5eTBFgQLCr bGxh (more content not included)... Normal [facility] RPR with Conf Rfxon 02-25-20 22 Reagin Ab RPR Ql (S) Non-Reactive Invalid Interpretation Code Non Reactive [facility] Comment on above: Result Comment: Perf ormed at: [facility] [address] [id number] PhD Ed Yeboah Performed By: #### 1 [id number] ####[facility] [address] [place] [address] Consent for Treatmenton Consent for Treatment [id number] 20 [id number] #1.00CD:127 Normal [facility] Gest Scr Glu 1 Hron 02-23-20 22 Glucose [Mass/Vol] 121 mg/dL Normal 55-140 [facility] Comment on above: Result Comment: Posi tive Screen =1 HR > 140mg/dL Performed By: #### 1 [id number] ####[facility] [address] [place] [address] Hct & Hgbon 02-22-2022 Hematocrit (Bld) [Volume fraction] 33.3 % Low 34.0-46.0 [facility] Comment on above: Performed By: #### 1 [id number] ####[facility] [address] [place] [address] Hemoglobin (Bld) [Mass/Vol] 11.6 g/dL Low 12.0-16.0 [facility] Comment on above: Performed By: #### 1 [id number] ####[facility] [address] [place] [address] Physician Orderon 02-22-2022 Physician Order [id number] #1.00CD:127 Normal [facility] Vital Signs Date Time Vital Sign Value Performing Clinician Facility 12-31-2023 10:56-0500 Body mass index (BMI) [Ratio] 34.51 kg/m2 Maame BARR Work Phone: [facility] 12-31-2023 10:56-0500 Body weight 88.36 kg Maame BARR Work Phone: [facility] 12-31-2023 10:56-0500 Diastolic blood pressure 56 mm[Hg] Maame BARR Work Phone: [facility] 12-31-2023 10:56-0500 Systolic blood pressure 108 mm[Hg] Maame BARR Work Phone: [facility] 05-31-2022 15:01-0400 Hourly Rounding Devin Pereira [facility] Comment on above: Result Comment: discharge instructions g iven 05-31-2022 14:36-0400 Hourly Rounding Devin Pereira [facility] Comment on above: 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 05-31-2022 13:00-0400 Hourly Rounding Devin Pereira [facility] 05-31-2022 09:24-0400 Body temperature 98.06 [degF] Devin Pereira [facility] 05-31-2022 09:24-0400 Diastolic blood pressure 73 mm[Hg] Devin Pereira [facility] 05-31-2022 09:24-0400 Heart rate 49 /min Devin Pereira [facility] 05-31-2022 09:24-0400 Mean blood pressure 90 mm[Hg] Devin Pereira [facility] 05-31-2022 09:24-0400 Systolic blood pressure 125 mm[Hg] Devin Pereira [facility] 05-31-2022 09:24-0400 Blood Pressure Location Devin Pereira [facility] 05-31-2022 09:24-0400 Mean blood pressure 90 mm[Hg] Devin Pereira [facility] 05-31-2022 09:24-0400 Respiratory rate 15 /min Devin Pereira [facility] 05-30-2022 20:40-0400 Body temperature 98.24 [degF] Devin Pereira [facility] 05-30-2022 20:40-0400 Diastolic blood pressure 72 mm[Hg] Devin Pereira [facility] 05-30-2022 20:40-0400 Heart rate 61 /min Devin Pereira [facility] 05-30-2022 20:40-0400 Mean blood pressure 86 mm[Hg] Devin Pereira [facility] 05-30-2022 20:40-0400 SaO2% (BldA) [Mass fraction] 97 % Devin Pereira [facility] 05-30-2022 20:40-0400 Systolic blood pressure 113 mm[Hg] Devin Pereira [facility] 05-30-2022 20:40-0400 Mean blood pressure 86 mm[Hg] Devin Pereira [facility] 05-30-2022 14:51-0400 Body temperature 98.24 [degF] Devin Pereira [facility] 05-30-2022 14:51-0400 Diastolic blood pressure 70 mm[Hg] Devin Pereira [facility] 05-30-2022 14:51-0400 Heart rate 52 /min Devin Pereira [facility] 05-30-2022 14:51-0400 Mean blood pressure 84 mm[Hg] Devin Pereira [facility] 05-30-2022 14:51-0400 Systolic blood pressure 114 mm[Hg] Devin Pereira [facility] 05-30-2022 14:51-0400 Blood Pressure Location Devin Pereira [facility] 05-30-2022 14:51-0400 Respiratory rate 16 /min Devin Pereira [facility] 05-30-2022 14:45-0400 Blood Pressure Location Devin Pereira [facility] 05-30-2022 14:45-0400 Respiratory rate 16 /min Devin Pereira [facility] 05-30-2022 08:00-0400 SaO2% (BldA) [Mass fraction] 98 % Devin Pereira [facility] 05-30-2022 08:00-0400 Mean blood pressure 111 mm[Hg] Devin Pereira [facility] 05-28-2022 16:40-0400 Hourly Rounding Devin Pereira [facility] Comment on above: Result Comment: Patient declines vaginal exam due to expressing not having any pain or noticable contractions. RN notes decline. 05-28-2022 16:00-0400 Hourly Rounding Devin Pereira [facility] Comment on above: Result Comment: Discharge instructions g iven and educated to come to hospital tomorrow at 1700 for induction. Educated on induction process and what inductions intail. RN answers questions from patient. Patient voices no concerns and agrees. 05-28-2022 15:00-0400 Hourly Rounding Devin Pereira [facility] Comment on above: Result Comment: patient resting watching tv with fiance in room. 05-28-2022 15:00-0400 Promise to Return Devin Pereira [facility] 05-28-2022 14:45-0400 Blood Pressure Location Devin Pereira [facility] 05-28-2022 14:45-0400 Body temperature 98.06 [degF] Devin Pereira [facility] 05-28-2022 14:45-0400 Diastolic blood pressure 54 mm[Hg] Devin Pereira [facility] 05-28-2022 14:45-0400 Heart rate 64 /min Devin Pereira [facility] 05-28-2022 14:45-0400 Mean blood pressure 68 mm[Hg] Devin Pereira [facility] 05-28-2022 14:45-0400 Respiratory rate 16 /min Devin Pereira [facility] 05-28-2022 14:45-0400 Systolic blood pressure 97 mm[Hg] Devin Pereira [facility] 05-28-2022 14:00-0400 Promise to Return Devin Lorenzoten [facility] 05-28-2022 13:00-0400 Promise to Return Devin Pereira [facility] 05-28-2022 12:00-0400 Diastolic blood pressure 53 mm[Hg] Devin Kelli [facility] 05-28-2022 12:00-0400 Heart rate 50 /min Devin Lorenzoten [facility] 05-28-2022 12:00-0400 Mean blood pressure 66 mm[Hg] Devin Kelli [facility] 05-28-2022 12:00-0400 Systolic blood pressure 91 mm[Hg] Devin Kelli [facility] 05-28-2022 08:47-0400 Body temperature 97.7 [degF] Devin Lorenzoten [facility] 05-28-2022 08:47-0400 Diastolic blood pressure 59 mm[Hg] Devin Lorenzoten [facility] 05-28-2022 08:47-0400 Heart rate 64 /min Devin Lorenzoten [facility] 05-28-2022 08:47-0400 Mean blood pressure 74 mm[Hg] Devin Lorenzoten [facility] 05-28-2022 08:47-0400 Respiratory rate 18 /min Devin Lorenzoten [facility] 05-28-2022 08:47-0400 Systolic blood pressure 103 mm[Hg] Devin Lorenzoten [facility] 05-28-2022 08:45-0400 Blood Pressure Location Devin Lorenzoten [facility] Encounters Encounter Date Encounter Type Care Provider Facility Start: 12-31-2023 Clinisync Result Encounter Maame Santosclifton BARR Work Phone: [facility] External Department Unsolicited Start: 12-31-2023 External Result Encounter Maame Sunshine CORTNEY Work Phone: [facility] Unsolicited Start: 12-31-2023 External Result Encounter Maame Sunshine CORTNEY Work Phone: [facility] Unsolicited Start: 12-31-2023 End: 12-31-2023 ambulatory MAAME SUNSHINE Not Available Start: 12-31-2023 End: 12-31-2023 Patient encounter procedure Maame Sunshine CORTNEY Work Phone: [facility] Start: 12-31-2023 End: 12-31-2023 Periodic preventive med est patient 18-39 yrs Maame Sunshine CORTNEY Work Phone: [facility] Comment on above: Second trimester pre gnancy; Screening, , for anatomic survey; Well woman exam with routine gynecological exam; Exposure to STD; Vaginal discharge Start: 12-02-2023 End: 12-02-2023 ambulatory EARL ZELDA Not Available Start: 11-06-2023 End: 11-06-2023 ambulatory EARL ZELDA Not Available Start: 12-18-2022 End: 12-19-2022 ambulatory Kaelyn X Orzech Facility:[facility] Start: 12-18-2022 End: 12-18-2022 Patient encounter procedure Kaelyn X Orzech [facility] Start: 12-04-2022 End: 12-05-2022 ambulatory Kaelyn X Orzech Facility:[facility] Start: 12-04-2022 End: 12-04-2022 Patient encounter procedure Kaelyn X Orzech [facility] Start: 11-28-2022 End: 11-29-2022 ambulatory Kaelyn X Orzech Facility:[facility] Start: 07-11-2022 End: 07-12-2022 ambulatory Devin Pereira Facility:[facility] Start: 07-11-2022 End: 07-11-2022 Lab Drop off Devin Pereira [facility] Start: 05-29-2022 End: 05-31-2022 Evaluation and management of inpatient Devin Pereira Facility:[facility] Start: 05-29-2022 End: 05-31-2022 Evaluation and management of inpatient Devin Pereira [facility] Start: 05-28-2022 End: 05-28-2022 ambulatory Devin Pereira Facility:[facility] Start: 05-28-2022 End: 05-28-2022 OB Triage Devin Pereira [facility] Start: 05-21-2022 End: 06-24-2022 Pre-admission assessment Devin Pereira [facility] Start: 05-07-2022 End: 05-08-2022 ambulatory Devin Pereira Facility:[facility] Start: 05-07-2022 End: 05-08-2022 ambulatory Devin Pereira Facility:[facility] Start: 05-07-2022 End: 05-07-2022 Lab Drop off Devin Pereira [facility] Start: 02-22-2022 End: 02-23-2022 ambulatory Devin Pereira Facility:[facility] Procedures Date Procedure Procedure Detail Performing Clinician Start: 12-31-2023 URETHRITIS/DISCHARGE PLUS VAGINITIS (HTRX) Maame BARR Work Phone: Start: 12-31-2023 Urnls dip stick/tabl et rgnt non-auto w/o micrscp Maame BARR Work Phone: Start: 12-31-2023 IGP,APTIMA HPV,AGE GDLN Maame BARR Work Phone: Plan of Treatment Date Care Activity Detail Author Start: 01-27-2024 End: 01-27-2024 Patient encounter procedure 01/27/2024 9:50 AM EST Routine [facility] [address] [place] [address] Earl Mendoza, DO [address], [place] [id number] [facility] Start: 01-27-2024 End: 01-27-2024 Professional / ancillary services management 01/27/2024 9:00 AM EST Ancillary Procedure [facility] [address] [place] [address] [facility] Start: 12-31-2023 End: 12-31-2024 Alpha fetoprotein, maternal Alpha fetoprotein, maternal Lab Routine Second trimester Expected: 12/31/2023 (Approximate), Expires: 12/31/2024 [facility] Comment on above: Expected: 12/31/2023 (Approximate), Expires: 12/31/2024 Start: 12-31-2023 End: 12-31-2024 US for US OB ANATOMY SINGLE W US OB CERVICAL LENGTH Imaging Routine Screening, , for anatomic survey Expected: 12/31/2023 (Approximate), Expires: 12/31/2024 [facility] Comment on above: Expected: 12/31/2023 (Approximate), Expires: 12/31/2024 CHLAMYDIA TRACHOMATI S (GENITO/STI) CHLAMYDIA TRACHOMATIS (GENITO/STI) Lab Routine Exposure to STD Ordered: 12/31/2023 [facility] Comment on above: Ordered: 12/31/2023 Cytology Cervical or vaginal smear or scraping study Pap Smear Pathology and Cytology Routine Well woman exam with routine gynecological exam Ordered: 12/31/2023 [facility] Comment on above: Ordered: 12/31/2023 Neisseria gonorrhoea e DNA [Presence] in Unspecified specimen by JAYDON with probe detection Neisseria gonorrhea DNA probe, direct Lab Routine Exposure to STD Ordered: 12/31/2023 [facility] Comment on above: Ordered: 12/31/2023 SURESWAB(R) ADVANCED VAGINITIS PLUS, TMA SURESWAB(R) ADVANCED VAGINITIS PLUS, TMA Pathology and Cytology Routine Vaginal discharge Ordered: 12/31/2023 [facility] Comment on above: Ordered: 12/31/2023 Immunizations Immunization Date Immunization Notes Care Provider Shaun mckeon 01-18-2013 hepatitis A vaccine, unspecified formulation INBEP [facility] 09-12-2010 meningococcal ACWY vaccine, unspecified formulation INBEP [facility] 09-12-2010 tetanus toxoid, reduced diphtheria toxoid, and acellular pertussis vaccine, adsorbed INBEP [facility] 02-23-2003 DTaP, unspecified formulation INBEP [facility] 02-23-2003 measles, mumps and rubella virus vaccine Kiddy OrAligo [facility] 02-23-2003 poliovirus vaccine, unspecified formulation INBEP [facility] 06-27-1999 hepatitis B vaccine, pediatric or pediatric/adolescent dosage INBEP [facility] NEGATED: Highlighted row has not occurred!11-28-2022 influenza virus vaccine, unspecified formulation INBEP [facility] NEGATED: Highlighted row has not occurred!11-28-2022 SARS-CoV-2 mRNA (tozinameran 5y-11y) vaccine INBEP [facility] Payers Date Payer Category Payer Private Health Insurance [facility] [id number] 2022-Present [address] [address] [place] [address] [id number] 2022 Private Health Insurance [id number] 2020 Private Health Insurance [id number] 1997 Unknown [id number] [id number]. 2.727 1997 Unknown [id number] 2.16.840.1.682722.3.579. 2.727 1997 Unknown [id number] 2.16.840.1.574802.3.579. 2.727 1997 Unknown [id number] 2.16.840.1.083809.3.579. 2.727 1997 Unknown [id number] 2.16.840.1.342056.3.579. 2.727 1997 Unknown [id number] 2.16.840.1.101433.3.579. 2.727 1997 Unknown [id number] 2.16.840.1.614365.3.579. 2.727 1997 Unknown [id number] 2.16.840.1.291361.3.579. 2.727 1997 Unknown [id number] 2.16.840.1.258389.3.579. 2.727 1997 Unknown [id number] 2.16.840.1.639955.3.579. 2.1259 1997 Unknown [id number] 2.16.840.1.301160.3.579. 2.1259 1997 Unknown [id number] 2.16.840.1.714416.3.579. 2.1259 Social History Date Type Detail Facility Tobacco smoking status No Smoking Status Entered [facility] Start: 12-02-2023 Sex Assigned At Female F [facility] Start: 11-28-2022 End: 12-02-2023 Tobacco smoking status Never smoked tobacco (finding) [facility] Tobacco smoking status Never [facility] Start: 12-31-2023 Alcohol intake Current drinke r of alcohol (finding) [facility] Start: 12-02-2023 History of Social function [facility] Start: 12-02-2023 Alcohol Comment caffeine: coff ee in the am [facility] Start: 09-17-2023 [facility] Start: 1995 Sex Assigned At Female N [facility] Start: 10-02-2023 Gender identity Identifies as female gender (finding) [facility] Functional Status Date Assessment Result Facility 05-29-2022 Functional Status No [facility] 05-28-2022 Functional Status N/A [facility] Clinical Notes 05-07-2022 to 12-31-2023 CORTNEY Ospina - 12/31/2023 10:30 AM EST Note Date & Type Note Facility 12-31-2023 History of Present illness Narrative Reason for Appointment: Patient ID: Adonay Hartley is a 28 y.o. female who presents for Routine Visit Patient presents today for Annual Exam appointment. Patient presents today for a routine obstetrics appointment. Patient is currently 17w0d with a Estimated Date of Delivery: 06/09/24. Current Medications: has a current medication list which includes the following prescription(s): cholecalciferol and crddgwfr-ose-is-fa. Medical History: Active Ambulatory Problems Diagnosis Date Noted No Active Ambulatory Problems Resolved Ambulatory Problems Diagnosis Date Noted No Resolved Ambulatory Problems Past Medical History: Diagnosis Date History of medical problems Family History Problem Relation Name Age of Onset Cancer Mother Cancer Maternal Grandmother Social History Tobacco Use Smoking status: Never Smokeless tobacco: Not on file Substance Use Topics Alcohol use: Yes Comment: caffeine: coffee in the am Drug use: Not on file History reviewed. No pertinent surgical history. No Known Allergies Review of Systems: Review of Systems Constitutional: Negative. HENT: Negative. Eyes: Negative. Respiratory: Negative. Cardiovascular: Negative. Gastrointestinal: Negative. Genitourinary: Negative. Musculoskeletal: Negative. Skin: Negative. Neurological: Negative. All other systems reviewed and are negative. Hematological: Negative. Endocrine: Negative. Allergic/Immunologic: Negative. Objective Physical Exam Constitutional: Appearance: Normal appearance. She is well-developed and normal weight. Genitourinary: Vulva normal. Right Adnexa: not tender and no mass present. Left Adnexa: not tender and no mass present. No cervical discharge. Breasts: Breasts are soft. Right: Normal. Left: Normal. HENT: Head: Normocephalic. Cardiovascular: Rate and Rhythm: Normal rate and regular rhythm. Pulses: Normal pulses. Pulmonary: Effort: Pulmonary effort is normal. Breath sounds: Normal breath sounds. Abdominal: General: Bowel sounds are normal. There is no distension. Palpations: Abdomen is soft. Tenderness: There is no abdominal tenderness. There is no guarding or rebound. Musculoskeletal: General: No swelling. Normal range of motion. Right lower leg: No edema. Left lower leg: No edema. Neurological: General: No focal deficit present. Mental Status: She is alert and oriented to person, place, and time. Skin: General: Skin is warm and dry. Psychiatric: Mood and Affect: Mood normal. Behavior: Behavior normal. Thought Content: Thought content normal. Judgment: Judgment normal. Vitals and nursing note reviewed. Exam conducted with a cipher expert present. Vitals: Estimated body mass index is 34.51 kg/m as calculated from the following: Height as of 20: 5' 3 . Weight as of this encounter: 194 lb 12.8 oz. BP: 108/56 Patient's last menstrual period was 09/03/2023. Assessment/Plan Encounter Diagnoses Name Primary? Second trimester Screening, , for anatomic survey Well woman exam with routine gynecological exam Exposure to STD Vaginal discharge Patient presents today for an annual exam/routine obstetrics appointment. Patient is currently 17w0d . Patient is doing well and states she has no complaints. Pap/cultures was obtained without difficulty and [facility]. Follow Up: Patient is to return to our office in 4 weeks for routine OB appointment Documented by Ada Hollis LPN on behalf of: CORTNEY Ospina documented in this encounter [facility] 06-04-2022 Note DATE OF DISCHARGE: 0 05/31/2022 [...] of a 7 pound 14 ounce male with Apgars of six and eight. Approximately a minute and 40 second delay from expulsive efforts, minor shoulder dystocia. Course: Without complication. Devin Pereira M.D. lr Dictated: 06/03/2022 [id number] Transcribed: 06/03/2022 [facility] Comment on above: Result Comment: Elec tronically Signed By: Devin Pereira MD\.br\Date and Time Signed: 06/04/22 08:08 EDT 05-31-2022 Note The following Patien t Education Materials have been given to the patient: EducationMaterial [facility] 05-31-2022 Note HOSPITAL REGULATIONS : All [...] see records for details. Devin Pereira M.D. ls Dictated: 05/31/2022 [id number] Transcribed: 05/31/2022 [facility] Comment on above: Result Comment: Elec tronically Signed By: Devin Pereira MD\.br\Date and Time Signed: 05/31/22 09:16 EDT 05-30-2022 Evaluation + Plan note Extrac noy from: Title:Post-LDE Author:Jose Miguel Garcia Jr., DO ate:05/30/22 Plan Transfer/ Discharge: Condition stable. Extracted from: Title:L&D Epidural note Author:Omaira Garcia Jr., DO Date:05/29/22 Impression and Plan Plan Labor epidural at request of patient.. [facility]07-06-2022 Hospital Discharge instructions Follow Up Care 05/29/2022 07:05:03 With:Dr. Pereira [phone] Address:Unknown When:6 weeks Comments:Call for any problems. Support Group first Friday of the month at [address] [place] [address] if fever>100.5 F, heavy bleeding With: Services [phone] Address:Unknown When:06/03/2022 14:00:00 [facility]07-05-2022 NoteThe following Patient Education Materials have been given to the patient: [facility]Material[facility] Hospital Discharge instructions Follow Up Care 05/28/2022 08:38:04 With:Devin Pereira Address: [address] [place], [place] [id number] Business (1) When:05/29/2022 17:00:00 Comments:Call for any problems.Return for contractions closer, longer, and harder.Return for decreased fetalmovement.Return if ruptured membranes or vaginal bleeding. [facility]06-14-2022 Evaluation + Plan note Diagnostic Tests Pending * Group B Streptococcus colonization by PCR [facility] Future Scheduled Tests Radiology* US Abdomen, Limited [facility] Diagnosis Second trimester state, incidental Screening, , for anatomic survey Encounter for anatomic survey Well woman exam with routine gynecological exam Routine gynecological examination Exposure to STD Vaginal discharge Leukorrhea, not specified as infective documented [facility] N[facility]ative No data available for this section [facility] No data available for this section [facility] No data available for this section [facility] Summary Purpose Family History No Family History Records FoundNo Family History Records Found Advance Directives No Advanced Directives Records FoundNo Advanced Directives Records Found Additional Source Comments Care Team (unrecognized sect ion and content) 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 DATE CREATED AUTHOR AUTHOR'S ORGANIZ ATION 01/01/2024 [facility] EPIC Reason for Visit (unrecogniz ed section and content) Reason Comments Routine Visit FOR RECORDS PERTAINING TO PATIENTS WHO ARE [...] BE BASED ON THE PRIMARY CLINICAL RECORDS. [facility] [employer] provides no warranty or guarantee of the accuracy or completeness of information in this document.
[2024-01-14 12:06] LABS: Thyroid Stimulating Hormone 0.454 uIU/mL (0.358-3.740)
[2024-01-16 02:07] LABS: AFP Value 43.5 ng/mL (.); Gest. Age on Collection Date 19.1 weeks (.); Insulin Dep Diabetes No (.); Maternal Age At EDD 26.4 yr (.); OSBR Risk 1 IN 10000 (.); Results Report (.)
== END 2024-01-14 11:03 | disposition home or self-care (01) ==
LOC: LAB 11:03
PROVIDERS: Visit Provider Obstetrics & Gynecology
DX: Z34.92 Encounter for supervision of normal pregnancy, unspecified, second trimester (principal); R79.89 Other specified abnormal findings of blood chemistry
CPT/HCPCS: 36415; 82105; 84443

== ENCOUNTER 2024-01-27 08:58 | Outpatient (OUT) | payer OTHER, SELFPAY ==
--- NOTE | 2024-01-27 09:02 | US_ITS ---
[address] [address] Patient Name: ADONAY GENAO MRN: [id number] date: 1995 Sex: F Assigned Patient Location: [facility] Current Patient Location: [facility] Accession/Order Number: [id number] Exam Date: 01/27/2024 09:03 Report Date: 01/27/2024 10:50 At the request of: EARL NDIAYE Procedure: US OB anatomy EXAMINATION: US OB anatomy, US OB cervical length HISTORY: ANATOMY COMPARISON: No relevant comparison available. TECHNIQUE: Transabdominal sonographic examination was performed for obstetrical and evaluation. FINDINGS: Number: 1 Heart Rate: 157.0 bpm H.B. /min Amniotic Fluid Volume: Subjectively normal position: Variable Placental Location: Posterior. The placental edge is 2.2 cm from the internal cervical os Cervix Length: 4.1 cm , closed Normal anatomy: Lateral ventricles, cerebellum, posterior fossa, nose, lips, orbits, four-chamber heart, RVOT, LVOT, diaphragm, stomach, kidneys, abdominal cord insertion, bladder, umbilical arteries, three-vessel cord, spine, extremities BIOMETRY: BPD: 4.3 cm 19 weeks 0 days <3% HC: 17.1 cm 19 weeks 5 days, 5% AC: 15.1 cm 20 weeks 2 days, 26% FL: 3.4 cm 20 weeks 4 days , 30% EFW:344.1 grams; 12 ounces, 18% FL/AC: 22.3 FL/BPD: 77.8 HC/AC: 1.1 GESTATIONAL AGE: Age by EDC: 20 weeks 6 days RICH by EDC: 06/09/2024 Age by current US: 19 weeks 6 days RICH by current US: 06/16/2024 US/US OB anatomy IMPRESSION: BPD less than the 3rd percentile, head circumference at the 5th percentile Low lying placenta, the placental edge is 2.2 cm from the internal cervical os *Reference: [employer] Practice Guideline for the performance of Obstetric Ultrasound Examinations, August 24, 2007. Electronically authenticated by: MALIKA WILKINS Date: 01/27/2024 10:50
--- NOTE | 2024-01-27 09:02 | US_ITS ---
[address] [address] Patient Name: ADONAY GENAO MRN: [id number] date: 1995 Sex: F Assigned Patient Location: [facility] Current Patient Location: [facility] Accession/Order Number: [id number] Exam Date: 01/27/2024 09:02 Report Date: 01/27/2024 10:50 At the request of: EARL NDIAYE Procedure: US OB cervical length EXAMINATION: US OB anatomy, US OB cervical length HISTORY: ANATOMY COMPARISON: No relevant comparison available. TECHNIQUE: Transabdominal sonographic examination was performed for obstetrical and evaluation. FINDINGS: Number: 1 Heart Rate: 157.0 bpm H.B. /min Amniotic Fluid Volume: Subjectively normal position: Variable Placental Location: Posterior. The placental edge is 2.2 cm from the internal cervical os Cervix Length: 4.1 cm , closed Normal anatomy: Lateral ventricles, cerebellum, posterior fossa, nose, lips, orbits, four-chamber heart, RVOT, LVOT, diaphragm, stomach, kidneys, abdominal cord insertion, bladder, umbilical arteries, three-vessel cord, spine, extremities BIOMETRY: BPD: 4.3 cm 19 weeks 0 days <3% HC: 17.1 cm 19 weeks 5 days, 5% AC: 15.1 cm 20 weeks 2 days, 26% FL: 3.4 cm 20 weeks 4 days , 30% EFW:344.1 grams; 12 ounces, 18% FL/AC: 22.3 FL/BPD: 77.8 HC/AC: 1.1 GESTATIONAL AGE: Age by EDC: 20 weeks 6 days RICH by EDC: 06/09/2024 Age by current US: 19 weeks 6 days RICH by current US: 06/16/2024 US/US OB cervical length IMPRESSION: BPD less than the 3rd percentile, head circumference at the 5th percentile Low lying placenta, the placental edge is 2.2 cm from the internal cervical os *Reference: [employer] Practice Guideline for the performance of Obstetric Ultrasound Examinations, August 24, 2007. Electronically authenticated by: MALIKA WILKINS Date: 01/27/2024 10:50
--- OUTSIDE RECORDS SUMMARY | 2024-01-27 09:03 | XMS_ITS | CCD ---
Author Name Unknown Address [address] [place] [address] Organization [facility] Care Team Providers Care Supervisor Blood Donor Recruiters Name Role Phone Shanna Daniel Primary Care Physician Carlie Leon Unavailable Corbin Ordonez Primary Care Physician [phone] Devin Pereira Admitting Unavailable Kelli, Devin Collier [...] Orzech, Kaelyn X Referring Unavailable Orzech, Kaelyn rBooks Attending Unavailable Kelli, Devin Collier Admitting Unavailable Kelli, Devin Collier Attending Unavailable Orzech, Kaelyn Brooks Attending Unavailable EARL MENDOZA Attending Unavailable MAAME SUNSHINE Attending Unavailable Corbin Henley MD Primary Care Provider Medications Current Medications Medication Drug Class(es) Dates [...] Weight Dosing Start Date: 05/31/22 Status: Ordered Izaemqiw-Exn-Cp-FA ( 1 + IRON PO) (3 sources) Hgiyqaay-Hic-Gk-FA ( 1 + IRON PO) Take by [...] Low,>-Panic High,A-Abnormal,AA-Critical Abnormal Performed at: 01 =G [facility] [address] [place] [address] Terri Cantu MD, IGP, RFX APTIMA HPV ASCU Note . [facility] Comment on above: TESTS RESULT FLAG UN ITS REF RANGE LAB DIAGNOSIS: 02 NEGATIVE FOR INTRAEPITHELIAL LESION OR MALIGNANCY. Specimen adequacy: 02 Satisfactory for evaluation. No endocervical component is identified. An endocervical component is not commonly seen in the patient. Performed by: Марина Stacy, Waistband Setter ([facility]) . 02 Note: Note 02 The Pap [...] <-Panic Low,>-Panic High,A-Abnormal,AA-Critical Abnormal Performed at: [address] [address] Terri Cantu MD, Performed at: =[facility] [id number] Healthcare Business Analyst: Terri Cantu MD, Phone: [phone] Performed at: [address] [id number] Healthcare Business Analyst: Terri Cantu MD, Phone: [phone] SPATULA-ALONE ENDOCERVIX [facility] URETHRITIS/DISCHARGE PLUS VA GINITIS (HTRX)on 01-02-2024 ATOPOBIUM VAGINAE 0 [facility] ATOPOBIUM VAGINAE Not detected [facility] BVAB 2,3 (BACTERIAL VAGINOSIS ASSOCIATED BACTERIA 2, 3); MOBILUNCUS SPP 0 [facility] BVAB 2,3 (BACTERIAL VAGINOSIS ASSOCIATED BACTERIA 2, 3); MOBILUNCUS SPP Not detected [facility] BASSEM ALBICANS, PARAPSILOSIS, TROPICALIS 0 [facility] BASSEM ALBICANS, PARAPSILOSIS, TROPICALIS Not detected [facility] BASSEM GLABRATA 0 [facility] BASSEM GLABRATA Not detected [facility] BASSEM KRUSEI 0 [facility] BASSEM KRUSEI Not detected [facility] CHLAMYDIA TRACHOMATIS 0 [facility] CHLAMYDIA TRACHOMATIS Not detected [facility] GARDNERELLA VAGINALIS 0 [facility] GARDNERELLA VAGINALIS Not detected N S [facility] MEGASPHAERA (TYPES 1, 2) 0 [facility] MEGASPHAERA (TYPES 1, 2) Not detected [facility] MYCOPLASMA GENITALIUM 0 [facility] MYCOPLASMA GENITALIUM Not detected N S [facility] NEISSERIA GONORRHOEAE 0 [facility] NEISSERIA GONORRHOEAE Not detected N [facility] TRICHOMONAS VAGINALIS 0 [facility] TRICHOMONAS VAGINALIS Not detected [facility] Urinalysis macro (dipstick) panel (U)on 12-31-2023 Bilirubin, UA Positive Negative - 4(70) +++ mg/dL [facility] Comment on above: small Blood, UA Positive Negative - 50 Luis/mcL [facility] Comment on above: trace-intact Clarity, UA Clear [facility] Color, UA Yellow [facility] Glucose, UA Negative Negative - 1999(110) ++++ mg/dL [facility] Interpretation and review of laboratory results Abnormal [facility] Ketones, UA Positive Negative - 160(16) ++++ mg/dL [facility] Comment on above: trace Leukocytes, UA Negative Negative - 500+++ Kahlil/mcL [facility] Nitrite, UA Negative Negative - Positive [facility] pH, UA 6.0 5 - 9 [facility] Protein, UA Positive Negative - 1999(20) ++++ mg/dL [facility] Comment on above: 100 Spec Grav, UA 1.030 1 - 1.03 [facility] Urobilinogen, UA 1.0 0.2 - 12 mg/dL [facility] Coding Summary.on 12-24-2022 Coding Summary. [id number] Gh0bWw+PGhlYWQ+PE1FV IHoT31ugOAgtT5IL5bNV B8WFXJBKVSQSI4YHS5fg LE2UUnrL5MhpeFg PotrvLJfDS35RIq5ISA1 qIfmQXmqsC5voHXxU2s3 BbOnWT30lU77RWuzGFMd BqA7UlKnpafzuALu F6xkWyRykCNmFmw+PHRh YmxlIHdpZHRoPScxMDAl AwHhaUyyCD8iGk2mZNIq LWNvbGxhcHNlOiBj h5hbGZBiSMiuTQ7tkJme W1TyoKA6FLYep5i0Gj04 dHI+IJJyTCD2bKyrZRsc t355LhMdz8glKKT1 fEIgVHnyTDZ4L27pk5R9 SWGcOGMfZPM9cRU1iQ6r xLbiudxrA1BbqQIuFsO0 OSM7fMGmoP7vtEld dnbmvL0cLbr+X81AVU4O KGPBAV2YCll1X5QqDgoi dHI+DY91MTAsNR21uTYq uXKkj4whcEx2JdQq FCMtXZQ4iCwcYJbyv7Gx USLeM33ypPSfk8L7SXSf kPwrvHChJnAouHV1tT5h VBqgmzgml0lbznui Msniu6mbys50iE45R14k WLpaRRNeUUR6BEJhYVFz lJlonk9yhV5dBj4+IDxj l5clb6bjiYh4CdJo AHXczlJyiYybXKX7u6Kd Do18N2SneOkmy0HfGac4 so80tNEyc4O1oKE2HIcx HFLlbL9cOZfpTnK0 KXKjUeEcoQ31jMLwPCdt Oi4vsDfjcLmyFX2gXENp szaoJWCmkU0wGQHaqPLk fMcuMK5gHEZgmsup p833BmJmTAI9RTAtyNUs M8GwcB9hAaWoQXGfXPMn Y5JvkZNiCRtrO952FBlw ZyB7RQQhdzZtT2Fc RCQmuNuhJfG1x3I1Vm0H q2EiubvdWGK9OMghKAWs CqZtPsJeXoR8K8BdUcv8 XVIjwIpoPM8qO2Im NHCvxbgsaxzdnKD2SUDk PWVytR19kZDpJBpkTq2q n6T2d240OEIwBNTdvS57 Wr3bqCtpTORamWPC dZ1tsssva7gxxfeiLtXf MAWqDAr0KNm7KCHghBpo PbUiXNB1RcG3MRW4qNBy tS5gdQkxrkaiuJ3t Oyc+U86emW8dQEL0ZYP2 vtmcTRWwpkMvIP80AU70 C2AeOkprzWPaiKI+PGRp wkPftLlqHE8tIjQq m3otb3CzSVtyF5HnCKXb DZpwBux4VXLzAQM9cPH3 kU0hRNXuYHwlp8T9qUY6 Z7CvttZrrl7kj3bc BFJoVHluW67cqOTdz7D9 ZZLqbHU6YHWbcShjTcBm vT32Auw+XMWfgDwmk7Ew Xqokl6qxy8kfvYx6 IjMwJSIgdmFsaWduPSJ0 t9VaYn26T62pJLcpRALj VAJlLDEdMDQpfDmniu9f jK5yAb8+PGNvbCB3 qFV1oW6uWRHeHyH8HTvk Y970NhJyrVPcTrdix3lz i0iucIh8NkByDRNqlhDq aIcnIIP8b1WdLi09 Y11lNBwlPGMjPQDhPZUc RMElxPnzoj5qdU1nTc5+ LR9iv7cteo16fI40rJC+ GSHcUIV8jLsaVKed ZGFvtK1mQCzfFtK3ZRTr ZjDflD48bXXmLRxnWt2f qMitfKulRS9qCTXozmss l835CcZzq7hiSFGu wGZkNGdwMKB6D91dl7F6 QEInFZBkNDR3pIB5gI8x bGlnbjogbGVmdDsgdmVy xWcsSAnjUGhgY189 IHRvcDsnPlBhdGllbnQg OsPcLOt0U8PoIol0BSCs nCwrEU1giDGrQMahHd7t sUnfqYzwXM3aUNOq nxgio436PwQlb5fgDUCh pJAxSNqsWJZ3W58wu8U0 QINjIJWwDYS3sWC8tX7k bGlnbjogbGVmdDsg uxGrlFdsDHqxXNmiE981 IHRvcDsnPkJpcnRoIERh aAK3BT17JS69mWOct9C9 vVY3J2IqKTPdlwol zlvafJS4AUPdGFTgwU43 Pv7drIdiXh0hQDWxNFM4 BSFdqMJzF0KarG5xOaAr RLMaQJEmM8NkaDRi ALxgP613EWksBrM1YLMk cfQzF1AwRRRnzEhuAbR3 l3Q8Mm5HC3F1DV89WY79 yWZbo8G8mJA7A8Mn FBAphaedwdrdkYW1AZLn FQRjaF16Ck0jlBdkLx1u VDTjBLO0UJIrjXMmT6Zj iK8hGsHwLBKnUZAd E5HojNOvQOemI353GOkm BaM6RQRagtPvS2QsKFHm aUgxSfT3o5C9Xn1CVWa2 AM90PD42oHEpk8T9 zDG7K1HcJMKiwhiqudbe yTT8CPNbMHDubJ67In2e iEyiWb9aBDOtEDC9TBOn xNBkU0TfvG5fGqTo ECOwCDGcG0SfyAVkWJuw V109ROozYoH9ILXmkwJe S4HoEYGhqLiwGxH2l9M4 Id1PQEAySU83HTE2 qEI7OO67TY11R7MlHzxm dGFibGU+PHRhYmxlIHdp ZHRoPScxMDAlJyBzdHls TU1eXb3jEOBnSPHl pUgkmNMgRyOwv3ifDQYp DGtoZB7prWwxS2GuzQI7 IXGdt0v1Ww08Y96lM1Hl dXA+INHhuZV2oEB4 zD7qCeRaRfI8GPykI647 NuCwmPHsDnusd3bux2ar vHj7IwY0HFZehqJbiYqu CBH7i6FhQw61B25p IHdpZHRoPSIxNSUiIHZh hWryzg9wvA8dYd4+PGNv wKO0iLJ5cX4pUoYqRuA7 LXtzO051AtNjrGWx Qciye0eqx5lthFt4MnAt ATBjcfPanQjtNKV3r1Fb Fc42W3XfpKwjc9GrPsa3 hy25wKDui9E4cXI7 B1RsIPJuudkzkKHhbPde AZ9nBHEknwpcIAKwtR8r UQEjZ5a5ZtTtVaS5YHjz S5FokyQ3XKIqfPJk DPshNBD2Q15dw5A4ZTXz JGQhTMG6hVJ3wJ7ysTjy bjogbGVmdDsgdmVydGlj VOknEFplG326RJCy uZzpGHZscQ3lFARboKJy pHcmVQ6dXQWrpcagFrPH Xo9IQujdA8YGSPDKIHLf TTwvdGQ+PHRkIHN0 fExlAHnvJMFawI3uAZPy S6q1LiDhKdN5VOcyY3Hk NBUvnplmBt64xE0gAaOh DnY0ZQfgR8NouvI2 XBMojVKyCTapZJC8J61b z9G1WNTxSJYoEET6sAL2 dG8ruZguglfhnVDuvFxu dmVydGljYWwtYWxp N233IVZfoDqoTaMdGtG1 ViY9WXf3W0VjKlq2RAYz lKxnDV2qyVDzZSvsCk7g sWnadIosAR2wFMHa dfooICCteJ5zQOKwaVJy kVnzRX5rSJTlnbdjq096 UrAhKZN9HCJagUMhE3Sb zG1bCrCxIWDiXHIk F5MbuJMhKUxeJ929TTfp NkY8OJPiihSaM2UbVVSl xIpyRhF9g7R5Ww6gBVIQ ZWFyczwvdGQ+PHRk HBJ0dMxoFKdsBCFhuG9h VOYwL9n6OsFuInD9RMhi V3CvLHOmlekqMi71lM2t HdTeTgE0AKypW4Vf woR3QYLirSMgMAwtTRW8 T90hs6N0FGAyBACeUOX9 lHH2jT8wtBjyxbfgvZYx dDsgdmVydGljYWwt EJnqX943PMJqvJdxAzKa bWFsZTwvdGQ+PHRkIHN0 oZueOGxaKJXmoY7wNJQj V5u5JcIjTxC6CMnj A7ChHNAkvxgnSb51rC2r FnLxQqL0TGjcI9XpxyI7 UXIlfFPvCLzoFYI2H15q m3R6PQUbADKdZWY8 eBI7rW1yuJmqrcyyhAKp dDsgdmVydGljYWwtYWxp K972XOKyfMciTh32kGZh oBbicqN6B8RaPubt dHI+LU42ZWKqLU91nLZu dMOar4kdmRu6JbCwLYUa AIE0sXwxHIxmh5QsJIGa V45adAKqf4A8UCPb vQzhhVPlYqHbyMZ0yY6v YMhcdtdur1tuitujKgzt v4civs49uE85H39jMFjr ZHRoPSIzMCUiIHZh lWsrct2vnQ2iPi1+PGNv jNV6dKD8gH6dYbIlMzH3 ZHiwI875WqLakACyCgmh i3zbs3azdAg9IcCt SWGjheKttZspYFG9x0Uk Pv04L49xTVufCSPiBBNh TMXmUNLqfVaiaa8ejM9i Ii8+GZ8vm6cdcm96 nU13lUK+ARXnIPR4cWbb ORmiSSHrzW8zCHbaDbN4 IDLxJeNzuE65wHYsEZau Ah8vaCeqoMnzEQ1o BGKujglth559AaEys4xd WZOzlHIyIZybUBV0A25p x1Q0FSXoFJHmJRN5wHA6 nF8asDrgmtpxtUTb dDsgdmVydGljYWwtYWxp U971YUGmuVplUwQyjKYz G8wbkrKUKK7oEjqxwHT+ AYHaZIX5kYwhIIiz GJFhiH0wVFHoX4g6GyCr AzG0GOzuM1WabmO4ZMSj kQJqARSenGRQsT0uvjci d9ptixufJjWfSPNj HYw1FNk4FOUwkGwzSzTe KGQ7IhI0XQM6rKTsyM8x fFrvcamlbY9rBnj+RklO OjwvdGQ+PHRkIHN0 wNzfVAlvOVYdjF3oUAPn I8j7BvAoEeQ3AYtxP0Mq qsI2IDOriRGeDOBboJQB dH4bdadyk6xbfihu YsMoNTFdHHs8VPz4XFUv mRyaXnOfPIS4ImL9SSV8 oSStxC4gzEfcspzrrB4x Oyc+TVJOOjwvdGQ+ DGMgYTF9rSfaYDeaNBDl oL3qHCCbS7b2TdYuEsF6 HIkjD1FutxY1PXVwaXNw HOQphROLgW4xpnsl k4gnhbyzOvHxCTLnBKq4 KHq5JXMndQidXaNnPFO5 UgA5VGB9dHBymZ0yeLlf pgpomY1yWrp+UGF5 JPF7SW83SP03O3VvUrcl dGFibGU+PHRhYmxlIHdp ZHRoPScxMDAlJyBzdHls BU0tGt9jMZZbYCFn bGxh (more content not included)... [facility] Consent for Treatmenton 11-25 Consent for Treatment [id number] 30 [id number] #[id number]:127 [facility] US Abdomen, Limitedon 2022 US Abdomen, [...] MD Transcribed by: STEPHANIE Technologist: BETH [facility] Consent for Treatmenton 11-24 Consent for Treatment [id number] 30 [id number] #1.00CD:127 [facility] Family Medicine Office/Clini c Noteon 11-29-2022 [...] When Contact Information Shanna Daniel DO C, [facility] [address] [place] [address]- Additional Instructions: Patient Education Cholecystitis BMI for [...] Alcohol Use, 04/25/2020 Employment/School Employed, Work/School description: [employer]. Highest education level: University degree(s)., 05/29/2022 Home/Environment [...] vaccine 06/27/1999 Recorded Date correction [facility] Comment on above: Result Comment: [...] care after the procedure. Medicines ? Take vvcq-yut-zmkthwf and prescription medicines only as told by [...] 11/10/2006 Document Revised: 03/19/2019 Document Reviewed: 03/19/2019 [employer] Patient Education ? 2020 [employer]. Nutrition BMI for Adults Body mass index (BMI) is a number that is calculated from a person's weight and height. BMI may help to estimate how (more content not included)... [facility] Coding Summary.on 07-17-2022 Coding Summary. [id number] Gh0bWw+PGhlYWQ+PE1FV CXeM70tuKQqnJ1DD6kDL R6NNJHECPGJDM1KCL0fk QL7INtoT6FzwuBx MgtgqCUxWR66NYx7PYI7 lTxrULvhoS7inSQlS7a3 LbNgOC12yF83ZKifGIYz PaO0TjOwprwxxOMx P0luFcTmjGPtXmx+PHRh YmxlIHdpZHRoPScxMDAl OxBgdXzkOR5mEe5dRDNg LWNvbGxhcHNlOiBj y4gfLHAlYUlhPM2jcNym Z8ZuuZQ9TFKtc9j8Uf92 dHI+SKKhYGD9lUvaOIub w509UlDdr8crSSK2 bPVfPEzvNJK0C24md1M9 ZONuVKSiIBN6jUI7mT1l oLerfsgqL8VpzLXmIiA9 YMA0yTXncT2fuLlv zlnkvZ3rZtc+T77GHW2Q YCVGUH9LBdl3A9LtAtgz dHI+HU71VAMoYN92zRTe jCYxy1lzmHk4CfQb AIDqERG3jBxmTOrvg2Pg LLFxP91ktMUgd8B4EXWz vHvlbMBtRhRxmSJ8lQ0i CTamoieup9xzxfty Ddckr3xmeo96mK02Z01x AGlwMTBzCPH1MKDzURXn iIpkvz2ssK6lCy6+IDxj c0rxi3hquQl0DkGe OFKczoJkfGxgPJF2h8Os Xx76W1YymYkms7YkGfh4 cp22eDQdd8O3gCS7NBmr GQNelL1zBAqxAtG0 VZMyJrIxeP43qAPaPCfa Yo2smIhdvDtyKF7fILTp krnkCPRtoF9hOFBfnXNk nZfnPZ9fJSZebnfs c600OlQkXRW2JBWfzDJo L9YxhR4wYiXuKXReAFFz V6UokRGjEPylP757ZSmg AzY8RKLrgnJwU5Pj TZCmrMraPiA6l3E7Hl1E i1FndljyKUR8SGhgSHH3 HiN4UgJfSaC5U1QxQxa5 YRKxpKmjLK6eJ0Hv IDUleubbsmrbgRN4FWLn VMLnbR08kKPiZKbzPl1e r7C3r210OTTeEDGkxG97 Jf3voKfgRDDwzUEM jT0lzqcul2jfwhoyHjPn DMXtZOi3DTt9EEJgqSwp BkDcOWG6HgF3PAK1pDLp vC0unGxoggzwhL5h Oyc+H22lfY0kCBJ2RAI7 qlcwVMOcqcVkNQ99MC54 R5PzChzvoRLvkDS+PGRp zvYivTvrVQ2aKfJh n2wzz2DfPGlqC5XaVPHx EMutUji3LGTmHJL2nLQ6 aU5sAWVlOGbfz6Y6aEA1 Q3WjpuLnfq6br7hi LEUoBBgzZ19rdXGos7J1 CDOzcRW3ADLwaBxkWgIg tW35Nhc+KWKppGegn5Is Rhval4lhs5rrpHf1 IjMwJSIgdmFsaWduPSJ0 h4DxHk69I14vWOpzSLWw JMQwAWTxUJDgeAtyvp3h bM8lHf6+PGNvbCB3 gMA1qH7vWTUmTuO9ZLme B414XaUxoPHcHwidl6vt i3gkxIh0HvCaVFOohyAy mPmsLCW5v2SvNy37 B99rAObmJKEqIITmKAGh FPPfzDgqwo2fmW8jCp0+ UZ6lw3cnlp69wV81jVL+ VQSrKAI4wTeoPLaj IYExpY2xPXvxQcR6SQIh AvZmsM77xJVuNJmlDx3u zHfeeNyhKW7rRBNtpnci k234OpVyt0orJVTt zOYrLFoxLFG4W93an2X6 AHAdEHUlRPG2mKN1gQ2r bGlnbjogbGVmdDsgdmVy jEqiEHgiTIigO367 IHRvcDsnPlBhdGllbnQg ZlHzZMb0O8JpWwj2FTIe rIhdYB5kmJNxOMdtMr6s eEbveYpnEI4kHVXr bwdxs820HcBwb5laJFAq lUQnVJjqZOK5P30sc5M1 EBOeAKYdZAA3oVS9rV3m bGlnbjogbGVmdDsg fnFvsPrfAQwgXUijM701 IHRvcDsnPkJpcnRoIERh zXC0TN04RG95kPAld8I2 uGR7G9JeEEMttrcz ssncmRO5PIJkAPLelR70 Ea4wtCibDu5eONDdIPG0 QLKxxVSfE9FfiK3tYaVt PPKcOHCyR7QzaCDh AUvxL682GWryXwM2QHSr owEhQ9CyKCNnlSnxAtZ9 o0L2Rl9OY0P8FL86GP30 wROli1S9gNZ8E5Qo XVEjwruoqvblvOX0UMMo BQLvaP06Xu6wsFnhSx4r XAHaJED9NRIrnGBkR3Sa pO9xXqEpSFJcJZXs Y4FgrVQiAZeeB796OZms JwQ1PQDdxuYtH8GpLIZr vJfxPsR5h9S0Dk1SMPl6 SI75IP81uAHrz9Z5 zRK3A1SwZYKgjmpmfvnh eFX1UMNrYSJutU24Kj7s yRvsBu1qZMXzUMV2OJRz pKKjA9GupJ8pWtOq GOTeKKJeS8AiqAFjOOia W306YHjlXaV1VVMligEp E6JkYQTvlZxeGmC6e8G2 Sj6BZMKnGU21ZTK6 hZX8QI08GQ67N8XyLqza dGFibGU+PHRhYmxlIHdp ZHRoPScxMDAlJyBzdHls AV6vOw6pMWRgUHTi tNlvwZUoNlHqw8xgDEWc YWfoMT2waJqpT7OlxXF7 YMIwt7o5Al74N31tN0Xk dXA+ZJHueND3lXG2 bB4vEwWoRkB2NEyfO365 YrWpeUNtRopqu6rya6us sMj9LbW2PYYweqTzvFqy TVD8x6TvRk71K04k IHdpZHRoPSIxNSUiIHZh fUaokj3cmO5zZg5+PGNv kDF4jJI7tB0tVzObWuP1 RZjnR706MrXjzHUg Gvxgi4cdw6fdtFw1QbDg WZEohiFtkVixDTS8z2Ng Wk68Y8XwpTtcu4XfWlg8 bb14rQZic4U6dOQ1 E9BnGBDpxztbyWYnrSfj TM6fLHEjacdfXACtlK0a ECOfS9c5SjTqQpB4IBxl U7GghlB3PWGqmBDj QXdiTIX1Q21gl3L3BKFk LPLnROA9sFY4eR6yyUhw bjogbGVmdDsgdmVydGlj HEqdDRxjZ556JLZc uMjvQJYbbS5mZDQdkDGm aLezHI0jIHOhkcicBjCU Kb8VBsqyA9XRQBZWJGGz TTwvdGQ+PHRkIHN0 bTdcMLqnIGYskA2eUUYz C8y7SpKhSaK2JJakL3Kz GBShhdjtMj06rZ6fPuTa XlS4PRnkG2XekjR1 MRDgbCEmFUloCOI1Y49s l9L4VMMxUCHoSEE2xYJ8 dQ4sdKwzxnopeNOdpFnr dmVydGljYWwtYWxp Q617CTVngNdfLrVlKfS7 HwN6ZSv3V4PnBxx2JEUd cSgzZC2ueSReXEbpHy9l xHfvuUbtWX3kVLNd eydwMAQgvJ4lZQGguITp kBxlVS1fINTlgoygk004 GhGwQLA0AZOgoIXrC9Xv mU9cCyEpDCDlRTCw D5NkrIZsRXciH239GNfs HfP6VVQznqQtR4BcAIMu rOrtPoU1p8B9Cx7nQDOG ZWFyczwvdGQ+PHRk LTW8oXjaBCahNQSapL0w ZHJmC7y2UuGeTqN2UIvf D1TcHFBahnkwZp22nE7v ZmWmJsB7XIwbJ2Bm uwU9GUXgzXGkWLfnLHK3 C07wp8P9AFPgXXMsDKF3 uMU9fH8wuHasciephPYo dDsgdmVydGljYWwt PFrdX906RAEmcQhiMaZz bWFsZTwvdGQ+PHRkIHN0 fMrbPIsbWEYlcP9eHUSp I7h7FbVeKlT5ZOao X8CqFDUqqmokMn47mF0f FcLgLrS1YXoyR8GefdK3 LIAezWCdBBinRCE7R91z p3T9XYSzFJJcQOI0 hAM9eG5sgTupcsvhtFXd dDsgdmVydGljYWwtYWxp I162UIHljSphOfidJzCU md5hJW3rAxuekQP+ SN90am61V1TcXkyxUtf2 GHQqIZR5qNV4jM9lCFSa URqqz3E8kMU2N7WzeqXo tk0ob6fxDUSeVBra O76seFKek0W9JIGxpPO7 ILWpaQtsEzXgdV15Cbw+ LKDcgAldk4ItQcptm6eo k6sdlTi3MrAkGBSn zaWveZteEYE7l0VyWz45 Z58eTKpgVZNeGLWuNIGn ADQsmWlhux8ifN9oEw3+ MVLyvQH6wEL0hI9u SwBwJtD6QRygR279AcCr vPCeSdfdd2uzz6btyRl6 IjIwJSIgdmFsaWduPSJ0 v9EwXu39Z4MqcGyy e2DePkj1ze94nHUdv4L7 nPG4W0VpZEVtgxlxyLCf oNonHQ1gDNSgincfMPHh tJ8eHUSeD3n9LlTz QoE6AQbmE4CssgN9UNSm lLOiGARmtMGSnD8alclg j8gjjugzKoCbBZSmSEr0 DNi2CKDqgBprNfVe ENV2ZpC3ADU4hFPtyI5q kTeabcqlrS0sHgr+UGh5 u8pfaOUbSN4baEE4FM00 NX34eIGpd6X1lOH4 J2SxULFyoreehnzwwPQ2 OPXkFOJmqT01Qm5onPja Sm3nCJKrAEF1JLGwwMVr C1HyoT6sCwMyYCUk MTBkO9SpyXCaWZlpZ649 HDzuJbF8MWDoxvHlU6Jc SYIzxNciHuK3s4M4Yz7T CD00BV13WS56fGYz n4P0bVS2M8HrAQNaxaxs xkkboVG4QRQaMCEyjH53 Ke8zdMalXd2lIDAdGKG4 VACohZPvO4TwpC9t JhQqFGPoTMXlA5UckCSp ISlrD213DGkuJsC5KHMa cwFdN4BeKHDhmKcrRvS7 b0C6Bz9PRj85ZM03 YB49cKXsy3M4mOE3M6Ic CUKxzuvkxtufpKE0TOOs HHEsvX67Xo6bqWbaHq6m IMCaIKW6PJVkpPSr T3LowY1dJtAvYDWtZHAg C8UpfVMzLPrwX049GIdk EnA3OLUhzcHaW6QoGLPa pNxlVuT9t0N5Ti0Q GZxcwdr8K5AwMzpubWF+ ZP07BJVnMX88kKWcuUCb x6cilUe9PbSsTPDgBPC3 wUdfPSmvk3SeXWMp Y29s (more content not included)... [facility] Lab Miscellaneous-LCon 07-17 Lab Miscellaneous COMMENT Invalid Interpretation Code [facility] Comment on above: Result Comment: Test Ordered: [id number] IGP,rfxAptima HPV all,16/18,45 IGP,rfxAptima HPV all,16/18,45 Note WB TESTS RESULT FLAG UNITS REF RANGE LAB Clinician Provided Cytology Information No. of containers..01 ThinPrep Vial DIAGNOSIS: 01 NEGATIVE FOR INTRAEPITHELIAL LESION OR MALIGNANCY. Specimen adequacy: 01 Satisfactory for evaluation. Endocervical and/or squamous metaplastic cells (endocervical component) are present. Performed by: 01 Maru Dong, Waistband Setter ([facility]) . 01 Note: Note 01 The Pap [...] High,A-Abnormal,AA-Critical Abnormal Performed at: 01 [facility] [address] [place] [address] Terri Cantu MD, Performed at: [facility] [address] [id number] MD Pepe Murray Performed By: #### 1 [id number] ####[facility] [address] [place] [address] Lab Miscellaneous-LCon 07-12 Test Code 605352 Invalid Interpretation Code [facility] Comment on above: Result Comment: Test code corrected. RS 07/12/2022 06:39:13 EDT Performed By: #### 1 [id number] ####[facility] [address] [place] [address] Test Name IG PAP APTIMA H Invalid Interpretation Code [facility] Comment on above: Result Comment: Test code corrected. 07/12/2022 06:39:13 EDT Performed By: #### 1 [id number] ####[facility] [address] [place] [address] Physician Orderon 07-11-2022 Physician Order [id number] 26#1.00CD:127 [facility] Reference Laboratory Testing Ordered By: Klever Peralta on 07-11-2022 Test Code 106537 Invalid Interpretation Code [facility] Test Name IG PAP APTIMA H Invalid Interpretation Code [facility] Nursing Assessment[facility] 022 Nursing Assessment [id number] 5#1.00CD:127 [facility] Coding Summary.on 06-03-2022 Coding Summary. CD:[id number]:[id number] Gh0bWw+PGhlYWQ+PE1FV GQjI35ytCGegO6QR5mKE D8BCAWGBILWPG6WCL6kn TT6RSgxZ0ItheIw MgdroUCrFT68FTv2CIE0 uFkfLLnaaO8idLOqF2a7 AfDbJH66cU49SMdsNEKp AzE5RcYattjxnFMg R8neDfNxeUUvMbc+PHRh YmxlIHdpZHRoPScxMDAl FgKjxVcmYN7jZu0fVCSg LWNvbGxhcHNlOiBj j4bmAEYqOJdgRX4dwBxc R2CwbYK1QLQtz2j3Yd90 dHI+XLPtDFP9xPxnNPeg e758PfFlc7rkGYV1 kMSeMVjiFTC8J76go7E7 XKSjRMUmVYN0qWJ6nJ4q wZxusjvgC7FadCIfIjS3 SBG9dBQicF8xjVnn mrietS3gWvq+S26PPD8L ZNFTAQ7EJjo9I7GdNibu dHI+MD86CUSmTQ05gFPi bYPad4eelYg0AfJj WIDoDCP4pOpuRGmzn2Lv XWXbG56srEGjl2C1CTEw fFwsvIKkGsRwtYX6vG1k RPeffjeag8bumfpm Xkzrb3thri04lN71X32s ZWoiYVWpGOS1BICvGRIb rGeggo1gsN4iCn7+IDxj f6ajk2virWz1XjSr CNNirnLcbFujNYK2h1Ph Dr77A7RgrZijp7VbKce4 cp75pXIet0Q1tJV9NZre PJXkuK1zMOnnGpI3 FJEcSfKtwV19nFExONjc Az5mqArtpZktHR9cQNBe hfghGZBbuR4qBAMnkIEs cPcuBI5nLRJtjbcy c080NmBvAXN1FXFbsSCd V3EaeR9nTaBlSOQhHUEj M5UxxWSdPVeeR384JKkc KoO2LHDpxeNeJ4Ma QAOnpSwdJzU4p5Q2Ul2B p2SqucoxOVN3VAwmLMO7 UbTqHpEfPnL4P7TfUqs1 YPJqsFlpTC6pM6Hy QYDoorwjhrxytHE3CKSs ELLlqB67bVLyNRfvTm8b b3J7z864QRQiAORcbX63 Fj4yjWyqUSYvkIBQ gO9apryns4dbigkyWvOw KZGqRVz5LZk3VDBouHwm DnDbZUF5CrL7HLA1jGUy eV7idHlrfgezgH2x Oyc+D77veX3vINM5RSN5 xuqqZTAfufYjZN82SA62 X5AzUrqxfSMogAY+PGRp plOwtMyuII2aSqAi r2zff3PeGAezX6SkQBSv BYryTpe9OLQhGGQ7sUN5 xW7jWNDzLVnzz1W9fID3 W9YuwtAylm7sp1sn QRNzBHmbO26ccRHnq2I7 STCsnNR8EXOagGqoLkMt aW70Khd+DGAmeLnqi4Cc Wstfm2fwg5zzfNs3 IjMwJSIgdmFsaWduPSJ0 t4OsKv17H27lLCzvTECk XJVuFGAwRQKeiQetlv1m tQ9mTp6+PGNvbCB3 pLF2cE2mJZLnBnE6ZZuy B366DqAnpTOaUabgg8sv y0kzhPx8BmOuARRqnrEd nOpsJND4h3UzEl31 O56sFOvoOPDrBVSkYMZu HTVpmAlfey5aoY3qCn2+ DW8hw6vlxa39cV13qOK+ UNEoYMN4nKofWErg YUPaiF0kZHwwIkP7OPEg HhUydK82cUFqXYxlXq6i vIfyyHuzVJ7oLECvgyib j241DjSgw1maHNIq hZIkOBtgDDC0Q99sr1F3 NDIfQUHuPSI4lGO4rN2m bGlnbjogbGVmdDsgdmVy hVazCGhdAVlwS525 IHRvcDsnPlBhdGllbnQg DqTjZMv6X4UdHmr3DGDy jMyxOT8fdVCcYLedJv0p nYumuOjnSK2pLUEj pptma041ZrZns0hwMFDh jDPaPXlsPMC2W61fv2Y2 QVIkHOXqJDQ3uYQ3fW5p bGlnbjogbGVmdDsg bkKznYjuDQndZEpnL383 IHRvcDsnPkJpcnRoIERh oVX1PL39HW85sOTvm5J8 rZG4O3XjJRNzajpw ewyfdZT2EFLeOVElmY93 Vf8cdLlyJl5rZZVeNTN0 JTUzmWRqM2JuiP1wKmVd XQBfBPPcP9LbtRMk JQbsR038IXsyLtS4KGYb skVmZ9QdEBMwnRmzFvO0 h5V3Jk6ZC8R1KD23EA03 iMNat5V8sKX0V1Ke UIDvlsmnnhztdZE4NTRa RBAgrU51Pn5bdIgtEl4u ZRUyZIN7FUAhqQHaH6Zy kD6oNfNqDFZlSYKl Q8JekQPaECsgW326DUfb HkC2KGNvhrFqB5YkNOBc kQvxRkO2u4H2Ar3CYVg0 JD16QV88mOMtw0U5 oZY5X0IdYPMjxraqerhv nGD8OJEqGCDstK73Wy0g pPaeNo2mTQOeWBS9BCRr bXMqA8FnjG8gNwBw OJZcMICiV8DyyJHaDGye X057GYarNlW9JEBlygOg V2LuOJVcgXlcAlY9y7V6 Nx3WCIGhNQ81ABJ0 tAB6TU68YF43V9XhBuwk dGFibGU+PHRhYmxlIHdp ZHRoPScxMDAlJyBzdHls MJ7iPw6eMPNnMIEi jYkkzMRyTtMgz4ndVWQo XWzbMR2mlItrH0RfsHN5 YEGjq0n9Ex90F84lS2Pr dXA+GRBdoZM8jJJ2 tX9hFvKjQcN3INnzT247 WwEmrEPjUvtmf9uim3os dNe6OnB8OVXohwInbXga HAP4q4WoVx01H69s IHdpZHRoPSIxNSUiIHZh eIdgyd8ceA9hQc3+PGNv tUB0tAJ0wZ1uKkYhKtQ2 RFzlE891AyVcsNEj Qdwqh1ecq0hqzYp5AdVm JXJxodNmoEtlUQB9i2Dg Yx84D5XnmHgwm4RmCyd9 bd91tFCva9L1oKG1 N9QmSAUuysgzgKWkmNim YT2zJREmgtoxSNCodA3j AQNhW7y9BxXzTiZ9LUzr T9QvueC0IHEynHRn QXtfRDJ7Z80dj4Y2ZBQx DCKdRWQ7sHW5rI3dtEvg bjogbGVmdDsgdmVydGlj WIjnRHoxT963VFMt vUmeNPDfqW0hHQCplMLd dEkdXS3rWHEqbkbiGsML So0RCpqgC4XHDBPSEZHe TTwvdGQ+PHRkIHN0 iJvfEDyrAKVaqO4jUVUl G6b9QdNxAvK6YZamX8Ri YIUeopirSv29vY6qIsLr McD9GLtzD4LgfwJ1 XHFznWIiXNwlCYC2T36g y9D9AOPpLCYxTSQ1ePG5 bI5irAwrawfauTHjpBkk dmVydGljYWwtYWxp O948MUGgmZpkBlShGkB4 BfM2YKe2I5PeQtt3SXMm kIgaXB7xxTReTBacNw8m gGgzyMlfAH8yENUr aiwfJTRtyZ6fSFUacCCd oViuYE6mELQwwyobg307 HtYfGKK7VUBaeLRqX4Ur cA4iHtUtNNZaNYSi T5InfTWiDTpiU366HMvl NlI4HQKorpZcW0YrLBWr tWehXxP9x4J0Zd9wRNUA ZWFyczwvdGQ+PHRk VEI3pOxoKYwoRBCkwX7a MDHwA6s2HsVpXeX2GIty D6OhIOMicaauUm54vE9x WpEwGvW5RZuiX4Ap wgL0DIKimNNgCOqhBHN6 L77cl6Z6ZBDgMXUuMAP9 gUA4zB4knLcfnfkrhUDg dDsgdmVydGljYWwt RRukG773DHFinGclTkWa bWFsZTwvdGQ+PHRkIHN0 wEfwBQxuDQSyxS0fXVBo E0e2KmYvTlG1WQdz S2StLGQurvdhJu14tW9j TpQzCfS0IVryR8YabqG1 QPXphFSlQDonFFO8C71l h8J0YZYsKEBqVXZ3 wZL1uX4fzLqzqvumpQJr dDsgdmVydGljYWwtYWxp H014ZCFxhIddJtlhrMA1 aWVudDwvdGQ+PC90 cp32S9LgCuyjDbq4BANn CMF8gQP0uB1hLLIxPGdk a1J5eDE5C3JdotGgcj8i e9ioGRVbJTgyC38m yOMod8Z8NDKnpCO9DQPk pTfjTvUeyN86How+PGNv yMrid9WbRuxvz6fyn7tw cXb4OlOdOGTbqjNk cDhlBSD7n3NmXn14P27u IHdpZHRoPSIzMCUiIHZh sYwrmo5txR0qNt3+PGNv vCW6rAN7rS4iKeJm OrH4QRhoM667RiIxkWQh Xvzrc5ohs9qvfTt6ApLl OGFgidQakHacILU8f3Da Ti94A8WxpXgce7Vw Soq6pl52iFTbz0A2gNE9 W4VeYWSiypwxmTMrzTkc TD2iOTQdqxueLBWmfA9f WGVsO1b8QbJhZpI2 UWldI7CzaxH4DECeoRDt OUSzhFCKnN0azaafz6bd upquFbJtIRJkRBq9NTw4 LWFsaWduOiBsZWZ0 XfW3LSX8sQZldP2dqHqy tevtqI9fSyo+YHq3r2eg nWHxMH6fhTB7WC21CY67 yMLgt9B8uLC4T7Kx HWMqgafmuncbnOB7SQAi PTNhvJ48Dd0rbRfwOk9w CTWuBWO1BVOgnJYmA4Ky wT9wLdYjWDVtBBTv X8EvjOPjOMmfA766ALvj GrG1QYXrwbLqI8BfEQUh oJhsJlY1r1V1Ax7EMO84 QW34VT02mPLkj7U5 oQU1O6SaHHVzkpqohkbb eDE6LEKjVXGmdU29Jg4w mAkiGg7mQUHmPAD6WCTc hVMcR5UcaI4fQvIr KSVjTHNnO3ZnhGOdJBfv M129TPapCkR2BDDirlGa Q4YyKDQzpGkxYuT6i6B2 Hs3BMo53CM05LS33 jKNqf8W2qHG0L8WdNUUi dtpoictglIR1AYPkCCMf nD54Ir3hlPxmPa9eYEMm DAZ3QSLgoPLmW1Oa pK8wMySoICAtEYTqS4Vi tPTbBDbrN697SGznVnV5 WVDgfgXkA2QlYRNjkTjm MiP7d2C8Iy7MNQyf edw7L9TuXrofwSZ+PC90 YVBvLC56tWEtaCFhi1dl wNw7YjHpLDLbKUZ4yMgb IHmeq2ZlPJDkQ86i bGFw (more content not included)... [facility] Nursing Assessmenton 022 Nursing Assessment [id number] 5#1.00CD:127 [facility] Delivery Summaryon 2 Delivery Summary DATE [...] delivered the 7 pound 14 ounce male infant. Apgars of 6 and 8 were assigned. Arterial cord pH was obtained. The placenta delivered spontaneously intact. Uterus contracted down well. No repair was necessary. Both mom and were doing well in the room. Devni Pereira M.D. Dictated: 05/31/2022 [id number] Transcribed: 05/31/2022 [facility] Comment on above: Result Comment: Elec tronically Signed By: Kelli DEMPSEY, Devin Collier\.br\Date and Time Signed: 06/02/22 11:12 EDT CBC w/Indiceson 05-31-2022 Erythrocyte distribution width (RBC) [Ratio] 13.3 % Normal 10.9-14.2 [facility] Comment on above: Performed By: #### 2 [id number] ####[facility] [address] [place], [place] [address] Hematocrit (Bld) [Volume fraction] 29.4 % Low 34.0-46.0 [facility] Comment on above: Performed By: #### 2 145010 ####[facility] [address] [place] [address] Hemoglobin (Bld) [Mass/Vol] 10.3 g/dL Low 12.0-16.0 [facility] Comment on above: Performed By: #### 2 040692 ####[facility] [address] [place] [address] MCH (RBC) [Entitic mass] 29.0 pg Normal 27.0-34.0 [facility] Comment on above: Performed By: #### 2 025179 ####[facility] [address] [place] [address] MCHC (RBC) [Mass/Vol] 34.9 g/dL Normal 31.4-36.0 [facility] Comment on above: Performed By: #### 2 662104 ####[address] [address] MCV (RBC) [Entitic vol] 83.1 fL Normal 80.0-100.0 [facility] Comment on above: Performed By: #### 2 828257 ####[address] [address] Platelet mean volume (Bld) [Entitic vol] 9.5 fL Normal 6.4-10.8 [facility] Comment on above: Performed By: #### 2 924570 ####[address] [address] Platelets (Bld) [#/Vol] 192.0 E9/L Normal 150.0-500.0 [facility] Comment on above: Performed By: #### 2 745024 ####[address] [address] RBC (Bld) [#/Vol] 3.5 E12/L Low 4.3-5.9 [facility] Comment on above: Performed By: #### 2 634902 ####[address] [address] WBC corrected for nucl RBC Auto (Bld) [#/Vol] 9.4 E9/L Normal 4.0-11.0 [facility] Comment on above: Performed By: #### 2 135992 ####[address] [address] Discharge Instructionson Discharge Instructions [id number] 0#1.00CD:127 [facility] HEMATOLOGYOrdered By: Swathi Weir on 05-31-2022 [...] Inpatient Clinical Summaryon 05-31-2022 Inpatient Clinical Summary [address] [address] Clinical Summary Person Information Name: NADJA ADONAY Patel Angy/[facility] Age: 26 Years : 1995 Sex: Female PCP: Shanna Daniel DO Marital Status: Single Phone: [phone] Race: White Ethnicity: Non- or Language: Ecuadorean Visit Id: Visit Reason: WATER BROKE Speciality: Acuity: 1 PP Enc Type: Inpatient Med Service: Obstetrics Arrival: 05/29/2022 07:02:32 Discharge: 05/31/2022 15:30:00 Dispo Type: Home (Routine DC) Address: [address] [place] [id number] Provider Notes: Diagnosis: (spontaneous vaginal delivery); Shoulder [...] Follow up: With: Address: When: Dr. Pereira [phone] Within 6 weeks Comments: Call for any problems. Support Group first Friday of the at 11am Call Dr if fever>100.5 F, heavy bleeding With: Address: When: Services [phone] 06/03/2022 2:00 PM Patient Education Information: [facility] Inpatient Patient Summaryon 05-31-2022 Inpatient Patient Summary [place] [address] Patient Discharge Instructions PERSON INFORMATION Name: ADONAY [...] CALL 911 Home Treatment: Devices/Equipment: Special Services: [facility] Additional Instructions: Physician to provide the following pending test results: None Follow up: With: Address: When: Dr. Pereira [phone] Within 6 weeks Comments: Call for any problems. Support Group first Friday of the month at 11am Call Dr if fever>100.5 F, heavy bleeding With: Address: When: Services [phone] 06/03/2022 2:00 PM In the event that this physician does not participate in your insurance network, please consult with your insurance company to find a nearby participating provider. Comment: NADJA Jain CAMIELLE M, have received the attached patient education materials/instructio ns and have verbalized understanding. Patient Signature Date Clinican/Nurse Signature Date MEDICATION LIST New Medications [facility] [address] REGAN, [address] [place], [place] [id number], [phone] ibuprofen (ibuprofen 600 mg Tab) 1 Tablets [...] to serve you. Thank you for choosing [facility] Insurance Correspondenceon 0 05-31-2022 Insurance Correspondence [id number] #1.00CD:127 [facility] Coding Summary.on 05-30-2022 Coding Summary. CD:[id number] Gh0bWw+PGhlYWQ+PE1FV PFmR80zhXPjyH3CZ3xLE T9YDDLQATQGBL6PAX7rr JJ2JJoyH1CrizSv TporaXJqPK59RZk8SBR5 qCakBFxkfT3ghBAgJ9w7 ZuDeNP00jM64BZceCOTb MtL9JdStexxzfWLk N1vxZnAkhTUyLiz+PHRh YmxlIHdpZHRoPScxMDAl KxYebFdkQW0ePh3xUGTu LWNvbGxhcHNlOiBj p2jvZCWrJKwuKE5cgMol G0UqoSJ0KETba3i0Cn90 dHI+CJBjCTA2aXxkVTmc e088IfUre6owTCB3 zBDaNGhvHMW2P69io0U6 PJGhRZOeMQB4nUQ2oQ5j zDokbxbfG6QqgNUaVfC0 FJG9vGRmdL8ldWce gbwcuZ1sSgy+E23VXH5M LRYLCW7REgs5W7BhYhfx dHI+HH46TLOlTS71jNEs dYVgl2yejLh4SoWy HCZzTXV2rAeqUJeat5Nn NFTcQ18sqOOrd4G5GPYt gByecVOdJzBjzJU8jJ0z ECcphfyoh9dcqkge Qkffu1qyvo42cT16E97w QZftBZSiUUJ4DKIaQVWe fHaobw2wxO6nTn2+IDxj z0xxn9bemBx6OuGm PNWxyiIjqOknBYI1p5Rc Sd11R7JbdNykj2TkVwu2 ql96zZVww2X7jQN5GVbf JEShgP7wTOjzOiK8 GLCdSpVolM63tWPxKFie Da1csOvviExdLM9lNKMa klegUYHqhA0ySAOjdEEk uSypWT3gFQZbzkbt p347RjMsPGL6MATftPEf V8JtgN6bCzEbQTLjBGUb B1TqrIWcCOetE573XDkz GoR8UAMudtAqF4Kg MABurXapZpE0h2Z6Wm8V v1PmansuUDR0NRdvHQK3 DeS5YtLwSgK4C3MtJrt2 IHWhvSclFI0wS5Dv HSGqnjyzdlenlTB7LVKs FTPyeZ53lXFpDMvsLq1k o6P4u684PQImTSLsvV83 Le4xsTewHPEsyEYL qV6pjosac3anhmviZmPy ASMvCUk1LQn3CELhgSzk BvZpTSF0DwC3JMA7jLMq dD7imJlkltrtjU9f Oyc+V88ffE3wQTH5OYF4 bjnsYIHcjpJqEW01ZS81 I0DlTruxmSTxcWW+PGRp uhGvuLvnRO5rIrPg m9dzp7WrMRktN3FlYLKf CDupXzs2CSBkMPO8qCD5 uJ4xUYDuYYicu4J0pKN4 F0BzjwWrlz7qi7em XUKmXWqhG34vsAVdt5Q0 OOGtbHK2XZZtsEscVpAm eO98Kbg+QOLveBost6Xh Qjiiu2mdd1ixsVu9 IjMwJSIgdmFsaWduPSJ0 h6JlPu80V18aZWepFKPh ZPUyBGNrZZEebKhmqy2z yA5oRk6+PGNvbCB3 gOP0lE3aAWNvShL0AJfl J343IjZpeYPfGsuef3of v7wzoDd2OxJfMWArykSw kOaySRK0t1LhNj81 J66xUKkmVRYkJUPtVUEo MMQqsXntln5weV6vHc5+ RR3xm2ppao53mT37wQY+ VCKiIUK6xJlvFIbt AOYzsZ2uVVkvDoG9JHVi KtCykZ68zIRyQAzpEq2u bOekhKkbPQ7nRACanqhc n862YzXtv7vkZTXu eUZwQAorVZO8S63aa6Q1 HHPcCRCmRDU2eZF2qP0a bGlnbjogbGVmdDsgdmVy dQagIVbxKAksF139 IHRvcDsnPlBhdGllbnQg WjKzJTy3U1WcZbv0PEJi aHgdMF5ayLBqDTvvYs9f xCvwhFxpVV3rUXBa pqwvr522WgJsc4jgORUy dCGfYLcsJQH2W50bm2X8 PYHaRIPuJBP5nOE8oW8w bGlnbjogbGVmdDsg okUioIztSPoxXNtzP868 IHRvcDsnPkJpcnRoIERh dYA5ZD82BU70zMPlp4R7 gOR7T3XtKVGqtjrl fetnqQR4XCYfDWOloJ24 Gy1kmPpyZz8eLSLsHZU2 HJEydIYmU8EmbF9zQySs TUYjXOBgW2MnwUIu KGxpW920IDhzOnI5SIZy iaWgX5VnFYJqtWjgOsR3 g4N5Ls4QH1S9ME49EB53 uCNzo3A5eSG3D9Oj IDAvhstjufapgQU8XYTl ZCKwfH98Ew3zfNksAu1s WOGzXDA6GFOfcIDrW4Kp pU7jTgNsEBLfJUZp A8IgmIRaRZuwG795NSgt FpB0VMBqrqRfT1HdNFHa rRwhZmL8e7U1Dk2DXYv6 JM50ED90sSQkk0H4 jKS3G8DmXYTemiqgefpc gEC3OWDzZXEmzG57Sk5s gGogAx6fHHVlLRK2LPPa rTGpZ7LhoG8kJeUf TRVkRGTmS4UoiEHdGLfo J318ETahQhA4TWWrqmYb P1CuJZPjfIwnQsV0p8Q4 Jx1GOUOhWQ55UIO9 wUA1EE27JE62K8XaNknk dGFibGU+PHRhYmxlIHdp ZHRoPScxMDAlJyBzdHls BI4iTn8kZMRnJKAl uFoutVQdMyGfk4rdQRFq WSeiLL3leHvbE9DceKV2 PVTim0m5Ru51O18kV8Ot dXA+XSKdgQE3dUF4 wN2lMzBuGbK3TVvtK746 OhCmiTHcFbeyj0opt3hk aCt4LbL5FJBfrcNdmYke TGQ7c6VbRo26D84j IHdpZHRoPSIxNSUiIHZh dKkdpp6mnH0tSs5+PGNv bOM5vUL2hW7aOdGcJzT6 TGyoO299ZaPouGEg Brnwy6iet2atvCy0RfRb GJNsahUelXbgDXN1c2Cw Yx70E1TtdDllu6VsCzq9 nk88tMBul2P8kGY0 H7FhAYMtwmxdqZPeeCub KA8rLBRoaonyXUCjbL9e TDXlL0u0VcNhYtO5LRws H8LydkF7UTIifGYs OLawTUR2D22do2D9GWJl YWPvQWD5yJN1bK6pxVjy bjogbGVmdDsgdmVydGlj DLozXTypU449NDCl uWfmYXFqmA4aQIGavMQa iWjzTC7vVPAclntqUvCG Jo5KHqltS7VOBZEPPUUf TTwvdGQ+PHRkIHN0 aDwsNAemOLFcqK0hTMHj U2f9XoUwUxS1EChhX0Jv UVIbcgfwFu23fE8qAyIn UmI1PCibW8VfdcZ3 RLVfwZTyEHwfJKK9C89p a2Q0YEIbRQJfGXB5pFB0 gK5gcCjodacrtQCemKcb dmVydGljYWwtYWxp V409NYBnaZcxUyJnFgQ3 ZwB2JAc6V6MgIky3DSWz rVagNH8vdNMyTUnnEy1d iSkqaKogSM0aLPCm nehkXQQgdB4eDACdaHNx pQshDE7zBTXvyqjyl636 PwVwLSF7FRQkmOKwF2Kz kH2eDbRlBLLxIUMk M4UfhZHaQFmyJ183EMbq BbP2VKVfdtBnG7AtKMOh yBpxExW1l5V2Ud2lJLIH ZWFyczwvdGQ+PHRk IQP2vHoaERrjOXWgpG3h XNLrN7a5EgXiMrX2MIcj Y1SmRTAchkzlTj49bO2u CoCuKxJ2DFvtQ3Vx urC3CQYdxZVaLQfdTEE6 S28ds9V0BCRlNLLvKIF8 pPS4eU0cpFfudkeelTOp dDsgdmVydGljYWwt RRedO791SSCywGnkZcBu bWFsZTwvdGQ+PHRkIHN0 rAoiACueVUNxqK9wUPPk F4l8TpHsMqU9TSli O3TfROEjvkziHt39oX7a EuFqTrZ0VLkoJ4RstaQ4 YDDafJQtIDcqTVU2X63k s0L9EUYjZDXaPLN1 sDR4hN8zwNaqrpnqbHMx dDsgdmVydGljYWwtYWxp F148OFThhAfgQr3RAAQs aWFnZTwvdGQ+PC90 wc93R5QfRighKse8SWVj HCN8pIA3fK6oYSPmHJho z6U9bTP9H2XlcuGdbu8b l0vnDSWtEHbfI76n dUHuy4X7ZVJmcLI5RILt zTjfGaEwtK20Zaz+PGNv kNoec9GyElseg6why5jc gGx6AlDjXHXfstNc kJuuAVY1u3SdYu29Y07b IHdpZHRoPSIzMCUiIHZh wYqaba9tiI6nRq3+PGNv wFW6bRS5sN3xNsQp MeA8DUkuY584CgGrdROu Fqryt8nmi0xxfLh7GbSi TPXhviKmzVzsJGW2c4Hq Es53M5OgmLbmb1Vo Bzk4iv22wYMva8C7fMB4 E2FeLCMwezfbfLBjoZnr GW1tCCWmbxneLOXabF7l QFOgF7c8JuCfCvV7 AZrpF5EeyuT0MXCdxNHu SRJjbJETuP3oogiry3bo dccdIeEfHYPuXBg6UDd5 LWFsaWduOiBsZWZ0 GlU0OCY8kKDkcJ9qtMtq knjfdE5yOqk+NVf3a5vm kSXlIC7weJV0CN32VO45 vLIqb7K7kBX7D4Mz PHIaoalahdaahCC8YBUs CGAahN84Ia8yfXwrXm8c GAYtLSZ5NZDsfRDtI4Cs aC5qIhRuEMTpSSPf B1NvjOOoFTwjA144JLfp DeO4VIEicaPiD0WlTBOk iKplLgX2n2Z2He8FKA34 GC50IH55lVZbg1M9 tWU9A2QfDCZxzbvldbuf cBF4GAOeSZFatT73Da3f fJpqZz8lFEErOFC7PXSn xZDzU6EwuY8lTdVg IJSpLRQtK3SlbACtWEuq Z812AJhsWkI8UBZngyOs S8KwYCQdqTulMfW1l5K5 Mk8LGb70TV29RG45 uQRca5J7wZH5K9CqIYMq alwvmrgtsNJ5HQZsFWDj gY12Pg1xqAinKh1sLPDl RLC1LWKqaQFzD2Uz gJ1aHrImWVYmJBUuX2Or kCNqMTfdR243OByiHaV7 XEFlgfIwA0HtVWQtmNyo KnH2k2R0Zv0YLYmn qqj7U7SqAnsvmCW+PC90 RXGhNH55gZKebAQqi1wi sVz5SnYzCZNeMOI7eWdo HKait0HrUJBcI02z bGFw (more content not included)... [facility] ABO/Rhon 05-29-2022 ABO/Rh Positive Invalid Interpretation Code [facility] Comment on above: Performed By: #### 1 [id number], [id number], [id number], [id number] ####[facility] [address] [place] [address] ABO/Rh History Checkon 05-29 ABO/Rh History Check Verified Hx Blood Type [facility] Comment on above: Performed By: #### 1 [id number], [id number], [id number], [id number] ####[facility] [address] [place] [address] ABSCon 05-29-2022 ABSC Gel Interp Negative [facility] Comment on above: Performed By: #### 1 0753835, 0522333, [id number], [id number] ####[facility] [address] [place] [address] BLOOD BANKOrdered By: Alexandra villaseñor on 05-29-2022 ABO/Rh Interp Positive Invalid Interpretation Code [facility] BB Subsection ABSC Gel Interp Negative (05/29/22 7:39 AM) Normal [facility] BB Subsection Blood Bank ID#on 05-29-2022 BBID# [id number] Invalid Interpretation Code [facility] Comment on above: Performed By: #### 1 [id number], [id number], [id number], [id number] ####[facility] [address] [place] [address] CBC w/Indiceson 05-29-2022 Erythrocyte distribution width (RBC) [Ratio] 13.1 % Normal 10.9-14.2 [facility] Comment on above: Performed By: #### 2 696774 ####[facility] [address] [place] [address] Hematocrit (Bld) [Volume fraction] 33.1 % Low 34.0-46.0 [facility] Comment on above: Performed By: #### 2 106829 ####[facility] [address] [place] [address] Hemoglobin (Bld) [Mass/Vol] 11.4 g/dL Low 12.0-16.0 [facility] Comment on above: Performed By: #### 2 636307 ####[facility] [address] [place] [address] MCH (RBC) [Entitic mass] 28.5 pg Normal 27.0-34.0 [facility] Comment on above: Performed By: #### 2 634546 ####[address] [address] MCHC (RBC) [Mass/Vol] 34.4 g/dL Normal 31.4-36.0 [facility] Comment on above: Performed By: #### 2 455359 ####[address] [address] MCV (RBC) [Entitic vol] 82.8 fL Normal 80.0-100.0 [facility] Comment on above: Performed By: #### 2 290689 ####[address] [address] Platelet mean volume (Bld) [Entitic vol] 9.7 fL Normal 6.4-10.8 [facility] Comment on above: Performed By: #### 2 154316 ####[address] [address] Platelets (Bld) [#/Vol] 215.0 E9/L Normal 150.0-500.0 [facility] Comment on above: Performed By: #### 2 983719 ####[address] [address] RBC (Bld) [#/Vol] 4.0 E12/L Low 4.3-5.9 [facility] Comment on above: Performed By: #### 2 633499 ####[address] [address] WBC corrected for nucl RBC Auto (Bld) [#/Vol] 7.0 E9/L Normal 4.0-11.0 [facility] Comment on above: Performed By: #### 2 780351 ####[address] [address] Consenton 05-29-2022 Consent [id number]# 1.00CD:127 [facility] Consent for Procedure/Surger yon 05-29-2022 Consent for Procedure/Surgery [id number]#1.00CD:127 [facility] Consent for Treatmenton Consent for Treatment [id number] #1.00CD:127 [facility] Discharge Instructionson Discharge Instructions [id number]# 1.00CD:127 [facility] HEMATOLOGYOrdered By: Alexandra villaseñor on 05-29-2022 [...] - 11.0 E9/L [facility] HemeAutoSS Recordson Records [id number]# 1.00CD:127 [facility] Progress Note-Physicianon Progress Note-Physician Patient: ADONAY SAEZ Age: 26 years Sex: Female : 1995 Associated Diagnoses: None Author: Jose Miguel Garcia Jr., DO Postoperative Information Post Operative Note: Day 2. Anesthetic utilized: Regional: Epidural. Health Status Allergies: Allergic Reactions (Selected) No Known Allergies Problem list: All Problems / SNOMED CT 819476444 / Confirmed Resolved: Anxiety / SNOMED CT 67542527 Resolved: Depression / SNOMED CT 118855043 Physical Examination General: Alert and oriented, No acute distress. Neurologic: Normal sensory, Normal motor function, No focal deficits. Review / Management Condition: Stable. Assessment Anesthetic outcome No post-epidural complications noted.. Plan Transfer/ Discharge: Condition stable. [facility] Comment on above: Result Comment: Elec tronically Signed By: Jose Miguel Garcia Jr., DO\.br\Date and Time Signed: 05/29/22 17:36 EDT Progress Note-Physician Patient: ADONAY SAEZ Age: 26 years Sex: Female : 1995 Associated Diagnoses: None Author: Jose Miguel Garcia Jr., DO Chief Complaint Intrauterine Health Status Allergies: Allergic Reactions (All) No Known Allergies Current medications.Problem list: All Problems / SNOMED CT 225502589 / Confirmed Resolved: Anxiety / SNOMED CT 05985788 Resolved: Depression / SNOMED CT 836488754 Review of Systems Respiratory: Negative. Cardiovascular: Negative. [...] The PCEA was started at 1728. [facility] Comment on above: Result Comment: Elec tronically Signed By: Jose Miguel Garcia Jr., DO\.suresh\Date and Time Signed: 05/29/22 17:36 EDT UA With Cult Reflexon 2021 Epithelial cells.squamous LM.HPF (Urine sed) [#/Area] 0-2 Normal 0-2 [facility] Comment on above: Order Comment: Urina ry Catheter Insertion triggered Urinalysis With Culture Reflex order by discern. Performed By: #### 1 7927703 ####[facility] [address] [place] [address] Terra Bella.plasma/Lithiu m.RBC (Bld) [Mass ratio] 0-3 Normal 0-3 [facility] Comment on above: Order Comment: Urina ry Catheter Insertion triggered Urinalysis With Culture Reflex order by discern. Performed By: #### 1 9452269 ####[facility] [address] [place] [address] WBC LM.HPF (Urine sed) [#/Area] 0-5 Normal 0-5 [facility] Comment on above: Order Comment: Urina ry Catheter Insertion triggered Urinalysis With Culture Reflex order by discern. Performed By: #### 1 4108096 ####[address] [address] Bilirubin Ql (U) Negative Normal Negative [facility] Comment on above: Order Comment: Urina ry Catheter Insertion triggered Urinalysis With Culture Reflex order by discern. Performed By: #### 1 6209796 ####[facility] [address] [place] [address] Clarity (U) CLEAR Normal Clear [facility] Comment on above: Order Comment: Urina ry Catheter Insertion triggered Urinalysis With Culture Reflex order by discern. Performed By: #### 1 5813169 ####[facility] [address] [place] [address] Color (U) YELLOW Normal Yellow [facility] Comment on above: Order Comment: Urina ry Catheter Insertion triggered Urinalysis With Culture Reflex order by discern. Performed By: #### 1 8965072 ####[facility] [address] [place] [address] Glucose Test strip (U) [Mass/Vol] Negative Normal Negative [facility] Comment on above: Order Comment: Urina ry Catheter Insertion triggered Urinalysis With Culture Reflex order by discern. Performed By: #### 1 1830120 ####[facility] [address] [place] [address] Hemoglobin Ql (U) Negative Normal Negative [facility] Comment on above: Order Comment: Urina ry Catheter Insertion triggered Urinalysis With Culture Reflex order by discern. Performed By: #### 1 7742255 ####[address] [address] Ketones (U) [Mass/Vol] TRACE Invalid Interpretation Code Negative [facility] Comment on above: Order Comment: Urina ry Catheter Insertion triggered Urinalysis With Culture Reflex order by discern. Performed By: #### 1 2343425 ####[address] [address] Nitrite Ql (U) Negative Normal Negative [facility] Comment on above: Order Comment: Urina ry Catheter Insertion triggered Urinalysis With Culture Reflex order by discern. Performed By: #### 1 6304685 ####[address] [address] pH (U) 6.5 [pH] Invalid Interpretation Code 5.0-9.0 [facility] Comment on above: Order Comment: Urina ry Catheter Insertion triggered Urinalysis With Culture Reflex order by discern. Performed By: #### 1 4229729 ####[address] [address] Protein (U) [Mass/Vol] Negative Normal Negative [facility] Comment on above: Order Comment: Urina ry Catheter Insertion triggered Urinalysis With Culture Reflex order by discern. Performed By: #### 1 4468867 ####[address] [address] Specific gravity (U) [Rel density] <=1.005 Invalid Interpretation Code 1.005-1.030 [facility] Comment on above: Order Comment: Urina ry Catheter Insertion triggered Urinalysis With Culture Reflex order by discern. Performed By: #### 1 9341863 ####[address] [address] Type of Urine collection method Clean Catch [facility] Comment on above: Order Comment: Urina ry Catheter Insertion triggered Urinalysis With Culture Reflex order by discern. Performed By: #### 1 6654983 ####[address] [address] Urobilinogen Qn (U) 0.2 {Quinton'U}/dL Normal 0.0-1.0 [facility] Comment on above: Order Comment: Urina ry Catheter Insertion triggered Urinalysis With Culture Reflex order by discern. Performed By: #### 1 8527254 ####[facility] [address] [place] [address] WBC Auto Ql (U) Negative Normal Negative [facility] Comment on above: Order Comment: Urina ry Catheter Insertion triggered Urinalysis With Culture Reflex order by discern. Performed By: #### 1 0884456 ####[facility] [address] [place] [address] URINALYSISOrdered By: Paulina Dobbins on 05-29-2022 Bilirubin [...] Interpretation Code Negative [facility] UA Auto SS [place].plasma/Lithiu m.RBC (Bld) [Mass ratio] 0-3 /HPF Normal [...] PM) Invalid Interpretation Code 1.005 - 1.030 [facility] UA Auto SS UA Spec Desc Clean Catch (05/29/22 6:35 PM) Normal [facility] UA Auto SS Urobilinogen Qn (U) 0.8016599 {[place]inton'U}/dL Normal 0.0 - 1.0 EU/dL [facility] UA Auto SS WBC Auto Ql (U) Negative (05/29/22 6:35 PM) Normal Negative [facility] UA Auto SS WBC LM.HPF (Urine sed) [#/Area] 0-5 /HPF Normal 0-5/HPF [facility] UA Auto SS Vaccinationson 05-29-2022 Vaccinations [id number]# 1.00CD:127 [facility] Consent for Treatmenton Consent for Treatment [id number] #1.00CD:127 [facility] Discharge Instructionson Discharge Instructions [id number]#1.00CD:127 [facility] Inpatient Clinical Summaryon 05-28-2022 Inpatient Clinical Summary [place] [id number] Clinical Summary Person Information Name: ADONAY SAEZ [facility]gy/[facility] Age: 26 Years : 1995 Sex: Female PCP: Shanna Daniel DO Marital Status: Single Race: White Ethnicity: Non- or Language: Ecuadorean Visit Id: Visit Reason: CYTOTEC Speciality: Acuity: Enc Type: OB Triage Med Service: Obstetrics Arrival: 05/28/2022 08:35:16 Discharge: 05/28/2022 17:00:00 Dispo Type: Home (Routine DC) Address: [address] [place] [id number] Provider Notes: Diagnosis: Problems Active (08/25/2021) Smoking [...] up: With: Address: When: Devin Pereira [address] [place], [place] [id number] [facility] (1) 05/29/2022 5:00 PM Comments: Call for any problems. Return for contractions closer, longer, and harder. Return for decreased movement. Return if ruptured membranes or vaginal bleeding. Patient Education Information: [facility] Inpatient Patient Summaryon 05-28-2022 Inpatient Patient Summary [address] [address] Patient Discharge Instructions PERSON INFORMATION [...] up: With: Address: When: Devin RIOS SHEREEN, [facility] [address], [place] [address] [facility] (1) 05/29/2022 5:00 PM Comments: Call [...] Leaflets: You may receive a survey from [employer] asking you to rate your care experience. Your feedback is important and will help us understand what we do well and how we can improve the quality of care we provide to you, your loved ones and our community. It?s an honor to serve you. Thank you for choosing [facility] Insurance Correspondence Off 05-28-2022 Insurance Correspondence Office [phone] [id number] 1#[email or web address] [facility] Coding Summary.on 05-22-2022 Coding Summary. CD:[id number] Gh0bWw+PGhlYWQ+PE1FV MChN09skPZrmI8NA4mDR M3ZRSPLCAXDTM1SKT7ai AW2EVrgU3CqrqSy LqlsuRMgKG77EJj7YKK8 zRbaMFbejG6rwVLsP2r4 TdEbTH65mE53YYwkCNVe SdQ7GlDnqvtfhGEb T2kyXiKlkRMmIdj+PHRh YmxlIHdpZHRoPScxMDAl LjWylPhvSM2kBm9nZAUa LWNvbGxhcHNlOiBj p4ehJRSwTOewYF5qrYrq Q2TyxCL8BPAbn5o4Uc49 dHI+RPCxLWH0vPqzXYdb s371VdMsz7bqABD7 nMXpXOciISN4C94bb2E2 RFAiLYSjXGL8hCB8oH4c aNamxxsnP3HsuSYiElB9 TWY2dHSqiF9tzQdf gzrbjN8dBlp+Z12DAX5U WWTNKQ8IMiu5T1RhXzqm dHI+LM31EVTyST94iNTm rIOwy0xxdNf7OhVd PUPyNOR6tFplLFbxl6Wh SMZuT92gkKQso5I3UDTh mXxdbZCxIwQsaFT8mR1y WYrskoudf4kzrnji Nosgr6gqjf97tV82R04x PTyjHJQhMXN3KNHvAFCe ePtjmd4alB4cKj0+IDxj l2pub7lprPg8PcFc MUAwboMttOilFKT1l7Ao Iu29E3VuoSsny8HlQrv3 of46fAIld7H1nYZ7RVmx IBAauQ2cLAudWgX5 CEGqLkObvW42iYZoRSfk Sn4mpLuclYozNK6tDYUk ocdeXOVjiE9kBNTqlLIk eZqpWH3zAEOhsnsz h569QiHeRBM7QCVosANr I8NsaG1sMgMsVGZmXMCi Q0ZhkZXeFNasB095LPfe WwH2PDDbjwIhR3Og CKEnlCvdNsP8o1A9Jv6H w6HbzyslPDS3IOwyGOZ3 UhX7YbMkRbK2X4UrUvf9 WBJvqIghBL4vF7Eb KQAbjshtkczasDE6VSWq OQUymG30sWYtYDahOf5y y0X8y694HZEcRAGihJ04 Mc0pkLvwXPWmkKQK bU3bluari1mcuxygUgHm VUFgMAg1YSt6VCLcvMwe MhBiTWW4ZnG6UCI6fKSx sG8ezJltdxyztK7e Oyc+U59rxZ9pWEA7JOD9 ljcaPJNuxeRxRE16BD18 I4KiCthatQKsxEV+PGRp jlRvfFkuWK1uUfCe i0ybz1GhWKhmT1CxIXLg WJfcPik1SASsUTX1uKA8 hX4pNFSjPCcpm2I7tPW4 Q5TemeNiaf6hp4td GKJeLFjdE14bnWUgf3T8 MNRyeZZ9ZTFroEdwWyHx kF09Giz+GRJwiFtqt5Lx Bmkxl5cse7fngCu5 IjMwJSIgdmFsaWduPSJ0 d6JdUj30B26tODcaTGTp EBTvNVRoGURbqTonnn0r eX3rBk7+PGNvbCB3 oGQ2qM9oYASrFfI3KUtp G711FdWqqGIkVdtnk7rz w7nxmIi0FwIkYHPcxvRx yOzpXXE6g2ToHn59 E07dKNdfPYCoVTLhOLAz OQNgmXhqna3bqF5tAp4+ FZ6oz8gudx62qB27sER+ EQRiKFP3rJtbCCqp KOMpkQ5yQNlcToA4TJBf RtOgqE00hYUcZHwbFp2x hXcwwGvrVN8qTJXxeegy m078MzWsr5flSELr bWZnURiuREP0D82uq9J4 HOMeDXPxAWA1qXK0tK6u bGlnbjogbGVmdDsgdmVy vTuuEQnrBGupA537 IHRvcDsnPlBhdGllbnQg BoXfIKg5P5TvHqp8FHXv tRcxBS2xxJUkGSmpDk8u hEgslJivRX5eRHNd eznfu635UsGxi2xjJUTp cTWoVGffUKS5K19ub1Y9 OAAfXFUaALY3gNN6bI9f bGlnbjogbGVmdDsg dnAynUehSRniQIrcV515 IHRvcDsnPkJpcnRoIERh xMX9KB63LM70lCNzq7G6 mWV1X2MgXAHcmppe gqgcjFV3BLEdODQpuJ75 Bn6zxDtjMw1vUCJxJMB1 GLGroSEvH8GimQ7sUbIa GCBcFUJdW7WtiDTs GDeaC123LCglKwV4XPAy obMbP1ZrBGOwcQbcOmW5 n8G0Bv3HB6C7UM29FG66 fWVro7W1zTO7R4Gf YKSwaoctgcwbaSS6GRSc XANzfR47Cz8msJfnRx0h ZCGxPBV2VYHrePWnJ3Hn lV4sHiKdKSWrQSWt Y2SpyRHyGVgbQ604RKso AoQ3KROoxvUrK9QaYGAy oLxlVsF8k5R9Ld5WJUe4 SL35NI41dYQmj9S4 cVI0E6CyIXIacbxzygib cZB9DRAgAABssO19Qy2b wChmZb4bHCArYTB3XNMc qJWfS3HxwN2iGfTl QSWrZOZgY3NkbNWzHNad U798DOtkHvK4ZPNgibOz T1CzFENkuBmvEsW1c6S7 Sr6JBRRzFJ84GBD7 vKP8TL41XO39E5YyEpob dGFibGU+PHRhYmxlIHdp ZHRoPScxMDAlJyBzdHls PG3oNl6wJZAkZOKb eFdqrFUsUfKxd9mpWTVk GGorWW5hjIbfK8VnnCS0 SSYly0y9Oy57Z54sF1Oo dXA+CYQhgES5zDT8 xI2lZkPcQpA7KZaqK465 PeHemLLmJiijz3way6ph zYf8YvJ3PTApgpBsmYxz CEP0w4VhXz17D33i IHdpZHRoPSIxNSUiIHZh nGiplj6ymA3aOe5+PGNv zDU5fAD1pF0mCzZbOfH3 ORrrS257WmHtuQAw Tfgiu9qct1uoiHa6RhQa XRIrhpTyjTrzSTB6w2Sz Dk83D3OrhMkia9YpNyz5 ng09nXQms4E2sFY9 J7RfSLLoksusxEMbbWby VB1bHGUomezwDHGsuR5z GWPzY5u4ThIqPlR1WAtu Q6YuzpP9TWJzaVSl VVquXVL6T19fn1H9EFBw NCGhMIP7qDG1nJ8vsFhx bjogbGVmdDsgdmVydGlj PCujBGvrY319GGPz yZfdGFJpcR8tSSPeiRAe yYvxGQ8iRBDbgkntBjHU Lp6XVkqfG5UDGVOEKUAk TTwvdGQ+PHRkIHN0 jJjpWKdnSDXfhN5vGXRd K2e6NbQzVwO2JXjqO2Ku WVCxbviwCo56mQ3nWoPn MuK3IWnvS7NinlY3 RKDuvLQiGDhtDYR4C26n k7W6CNHhMBNjXEY2rBQ2 qK6tiRqlcbkbzSThzYoe dmVydGljYWwtYWxp F415XGYydWhzQpMhRwE0 VpJ6XNz0Z6AxWtc1IBHz zCkdQF3nrGFvYWaiEu5e xYhruStzDU4xXCMp mrflXDOxvD2zVXAluIGt vKhuDR6sWLSedztbb372 HnOpURY2JJLrrMBwC9Qd sH1cIdYdKGPuTXRs P1OkxEXrLAhgR631IGkg EpS8AKAzziEeQ2AtSZNb tEqjMcN2e1X2Vb7uLFOJ ZWFyczwvdGQ+PHRk EPB7xEksDCwdNSQjiU5q QALdG2l0UkOuDjA1GIae F1ZuUFXbxzgsFg07iZ6c GsRtCiQ4RCqrH4Vt npP5ECNdoJVwEXgcPDG8 E91yp0T6LBHgELVsVJD4 nZN2qG5ubHkkanchyKKk dDsgdmVydGljYWwt XRiyN050WOOybQiyNpLj bWFsZTwvdGQ+PHRkIHN0 zApzWYwxYMRknT9qIAZb I6k3HeAqSjA3TGuc W4EiAYRumafpSh05gX0g XcWwAnX9ZAumK6GhvxS3 NESvzCUrVZsfYGD3I35d w8B4WIWaMSCeAEG2 uUI2qD2zsPygjoqapQTz dDsgdmVydGljYWwtYWxp Y635VEDyuZfeFgmcObDL gh5hTO6nMpoykSF+ WL48zl23A8OqYzjaTyh3 VMQvZFD3yLM6oT4zWLUb BZqdc0L2jLM2Z1OfluEo pi4ro7seGVMyYXra P19iyBWfa0N3RNQteHH6 SYSdlOtfXpQqnT13Qpl+ KHRwqLunw1MqEwzzj2mj b9swsSr3NyGbHQHm ogUryTdoJHA2o3AdIg78 X74rRKgvWYLrUAIcLVNg WESomLcwsu3qqJ1zJy4+ IFOvgPW3vIP7sR8n StZgAcO4RBwrJ827TmZp zIOzHuavp6myh7fjbUo0 IjIwJSIgdmFsaWduPSJ0 p3KbDq64H8OpyQud f9QpYoc6tc45sVQfc7Q6 pDN1U1OwVAEeztyfeGGc qNrxZE4gXFJfbmnkRUIi qC6nZABmA7q9PtAd BsV9TLduQ8KlpnU4OQAi vARrWJDygAVEgS6zvbbd z9njrmtmPiFuSVExUSf1 ZQt6DYIqlUefYdRh ADD2LaB9VJS6rOHmiS2y eMziddikgX6pRuh+UGh5 y1pdqCXiZZ9inMS4KP47 ER89jRTui3O9iUV0 L0DsMHRhakgjrbmbvPE8 SCHyRTTqdB69As5xlDpk Cw6wFHBwFVZ6HECawUXy P4JazL5fAjHiWSTq NYKfU7UtbVEyVIfbE185 GHlkSyT0FVJvosFsP6Zp ZTVdnMjeOlH6i1X9Pz4W MT92HL27NX18mUYa i3E7nOX0Q6NzIXCclsrd dqikoLU2XMCvGJUloU32 Eo0zwRcfXt8nLOZlCAV8 SULabEGxH5BivY3e FrCfTLSfYYXtX9VopFXf QQkiU678IHxbJqO8JRAi muFxK8OlJZHphFpgSfM7 o2L8Yv5OVe42NE59 UN33rAMkr1A0vKM9X7Wl FKLftrvbnjxwaQD5OYRo EWFmmM97Ay1bsWogLu0g WWWwUPS8RQLqtVNl C1PlfB1jBfIiQQOvLFBv K0ZhtGUrKVioG629WRdq QjF9SAFzxbAlE1InAAFm lQgyEwI1w6R2Rf3R WZaywes4B0TeYdvxdYT+ EJ68PKBfVX59xHTffAFd s5rhvQf3YjEqBUOwIUS1 fFrhEWkrw0GwJNQh Y29s (more content not included)... [facility] Group B Strep by PCRon 05-08 Group B Strep colonization by PCR Negative [facility] Comment on above: Performed By: #### 4 [id number] ####[facility] [address] [place] [address] Physician Orderon 05-07-2022 Physician Order [id number] 7#1.00CD:127 [facility] Physician Order [id number] 6#1.00CD:127 [facility] Coding Summary.on 03-06-2022 Coding Summary. CD:[id number] Gh0bWw+PGhlYWQ+PE1FV AAiN19vrEUnsA8VD8lWV K2OLBMMUUNSAN8OTS6tr MZ3SVkqP7IljhIq ChdjkSMvWA57LKi0YZT0 nXfuEUjyrH0rqIJkM6l7 SgXqAU35gC46DDqnHRHf JkO5KpQwxbauvBFd B7gwFeObmSBkPxo+PHRh YmxlIHdpZHRoPScxMDAl UjTeiGxtYN7bLm8cIFNf LWNvbGxhcHNlOiBj e5pyPURzHCygZT0ngTxy C5EldBD9PMOye2w7Dl91 dHI+BFDdVVQ8hWiuKTct p305HrZeu7pnRTD7 xJGxORayXFL5X43rx3E6 ZFLbPEOuSKM9sAJ7zF9w tWlspuimT7AsqVFdHoY0 CDJ0cQVxzN8riLij jtiacS7cBhs+C31PWE5I WGIRXW5IJng1I3EwXjyy dHI+BH79OPIwIF92tQOv gGQtx7hjlVb2CuBb AIUhFQH8hYhxPAoul4Ib SHXsN63hoZMus3A9VVMo wShadTInJuCwwNQ7nB5y WWlcxnrpf8rnsdfz Cqizf9jmgx67pM07O32t JSefOFRhRNJ5AWCzMTKr cFqggm8fqI8lSl3+IDxj m1qdy8qlzZl6KcRo TUJivfJeeDiwUVH3f6Tw Wm16G0KvcJtis0KwUgf9 mm18zAMme1L0aHV9XXbj MUFucY3aROxcYzO0 PGOxHrTsfF92pBCkRLis Rz3byHhvnOscYM0sMVCd xsdqGGBbdV4yHGQelGTv jXtlGX8uIFUjkglq i663BmWeXOK0WPTywXIi V9YaaV4qQoVhBOLpYUFj O7PxjRJkXFjtA151BJed AsZ7ZXQnrnBoH8Jy JNIqpEnrVsS7b8H8De1L h1GuvtlkYWV6BTkbUUP6 JlJcBhNfDrH0W6SwIzm3 DFBlmOjqDV5iC1Ys HUOawsxvbunakJV4FOEd SABoiU72jDNnBGevNf2h z2U7u868PUHsWKRftJ48 Wb0snKxjERZyaKGD mN3aedebq1tppywsNnVz KLGiLRm3GTh5GCVpbExr TjLiZJB9FkR6BUC9sXGt nP5zvIixgatwuR5p Oyc+V51kzN2wSTF8MJE2 nputNARnglIvBG65BT53 R2ZbNqqyuXBonBN+PGRp kzSamVtkUG4vVbKf w3ngl4NlTRioN7KeXWMu OHozWrr0AGTcCNA1tKB5 hJ4nQMJbCFecn3U6iDZ3 B5AewwNrvo4nq3ie UZJkFLwqN10qbTLcr1Z6 DGRibCA1SUMvcRhtStCl nV43Djv+JFFgvNiib1Ow Imehw7bkx3tneUk3 IjMwJSIgdmFsaWduPSJ0 u7GfJx92P01cLGycGWMh GBMmWFDmKDXtgKbsor2i gK3pYz5+PGNvbCB3 kPV0kV9sQDVaRkW6MCpp T226XdDvkRRhAcjio0to p7toyOg9GaCvWEYzzvTn iTkeTZE2f5VfUl63 O78qUWifTRBtMZXoQJYn JYIhrAbtat9jzF9jFo6+ YH9kp6yksj10jO22zGQ+ XTFpEOE0vFgePAcn UOEqpV3oOPwaSuD4QJGy TeKhdO98mHTvFXpeNt7u gIjjeJqvHW7bAUEjwzyf t087IiYxg0gtGQHp mTJwUXhbFNV9K41xi7D4 QTVlBZTmZKV7tQF2oR5v bGlnbjogbGVmdDsgdmVy rVyqGVxpKWtmK850 IHRvcDsnPlBhdGllbnQg YmUbZYh8S3ZgUjz4PQVa fAdjPH6grFQfPWluAo6i aEldsGwqIK2cEXGt hldht519VxHmw2ciHYGs iMUiBFvhBUN9U26dn5R1 KKHdCBKpMXZ1tDS0lU9j bGlnbjogbGVmdDsg igAycRvmHSaaKKyyP475 IHRvcDsnPkJpcnRoIERh iUJ5EE90FU86dXZxw2S0 zLI0X2XjXKXuvqil lgfxnGW5BKGpZQEyjC74 Og8etWjjLe2nICZlMTY1 HORwtPZzX3NxdG5gIeUw YJEgTPTuA4FbuQHa TMwmM018JPpoJtP6LCKb guMmH9VpTVVqjZfsItK6 v7S4Zj1VH4Z0EE01NM53 tUKrq9H8zMM1O0Gf BUIqrduxcnkpuGG5QGFb PFYfnB32Ey2knYruMs7i SIScMLD4OURkqYLfT0Bi bP1zNgUgHLSdIEYs I7HnoINmROyxA984TGzc TbZ0TOQcvcZbN7FsKLTh vFduFsI8o8T5Aj9SQFx0 RO72EZ78sCVia0L0 gHK4X7JcQIIiynjfrinu wLN9KJJaWSOwzF97Kl8z lCidSq0mSSSqVNR6VDNi eUUwC7SnjM4bAoXr NJCuEVCyD1UbjJDsFZfp W020SAvyVkA9PORawpTn H7BoPKOsgNdmZwO3j9S8 Cw5NLSXtIX46ACL6 rWE2BM23MY25J9SiMnbw dGFibGU+PHRhYmxlIHdp ZHRoPScxMDAlJyBzdHls QX1sIl4oWMEgQSSx tMqmlOGoPfFjj9tjZPZf WBjrXD5nhIzwL6EbfCS2 HBRxf7i5Cp92C38hO6Xq dXA+TNPtkPG0cBM4 vZ0qAbSaCjF9WPqyY983 IjSleTRcFcksy7vem0ch mMc2RuP0ULOzhxIleXex PFL1l6VnCz01P88i IHdpZHRoPSIxNSUiIHZh wOdwvr5cjZ6tAc2+PGNv bPY4qYU1cI6uNmCyBjN5 FSjnG659NkHkhGDn Dxijk4bbn1yvfPz7DtQd VIGktoBdfPqqLJF1c7Bq Ta14C7KqfSocc1BgExk2 di03rGQtp8B9tYC8 U0WiZCJoiuabeURdrAtl HC9xKRLcquwlYIXcuX0q EROqS2h9RjCeKeF1XIvj J8BvswB7VUPfyTCn ZTwkSUC8G18ut6V0NSIu BGGoNFL9lYA3jB6bvNeh bjogbGVmdDsgdmVydGlj IJrnUSowV022BQQy yColDWVxmG8dTZMvgLEr bEjuMN3eBRMszlbrFuRO La6KOtldY4HOOGSSGMPt TTwvdGQ+PHRkIHN0 jAmaWXnmBXYegE8nLYIz Z9w1WcOtKpU7AAabR2Bb JKAuzevgFm66nN3qAeXi LwX6CPjvF6UfeoL6 AJKyvNKjOLbaWNW8A39m d2N7OLVqAJEfVOG2xIG8 vL3tkWmhcnjijAPtuZyi dmVydGljYWwtYWxp X280GRRfhJfnEeRqJqS1 YkI4YNe6I4OcAya4UOBr zEefRI6buNRbPNgfQz2w iUfvwNxeVK3gKESh zqhdUGUviR6aSCDorAMz uNdfML4xRGEofcmmi644 GyXjKGF9VRPhmOObL2Pt bM2sPfRdDHZtSHAe M9JbcUGiBHnaL234BSxe NpV2QBAlzxXmS7EnCEXo cNteGaC4k1E8Mw4tKDFD ZWFyczwvdGQ+PHRk PJG2sAxrCEvmSBZviN0b TYAfH7y6CeFjWnQ2MPjr K2BwYDAcfdzqRz37eC2c JlUwSqQ7GYpcM6Zq yeU7GXInoNDzLCtmRAO1 T09cq1K8JLGgVZMuZRY4 sYK8qW9mnByyvfeiuEHg dDsgdmVydGljYWwt UWbcT914QGBpqXxbIkKv bWFsZTwvdGQ+PHRkIHN0 gGhgDXmcSSXtiP9dTBBw Z2i3EoQeGeC5BByf D2SdFOFnpxxvSd82mI1w WxXfUcU7FYguJ0RzkpM4 DBFzwMSvJBdcECT9A30l z2C3VYMrGEDbBUA3 gMK0pL9zwVshogygmSMs dDsgdmVydGljYWwtYWxp W696MSNxwDjtRm93sBJx rNomuyI4D8BcRior dHI+NW19HFMgJF15uAMi cZBgs3rzzDy6JeXzZGTa ZEP4vShjHUetp0VlUVZi Z81gvDPkr3A8MUBx oFrthNTxSaHsjGL1wU3i DXqzkcptd3xoorhkVxwd a7lsvm83nO52T46eBEuu ZHRoPSIzMCUiIHZh uWemnt6isJ6kVf4+PGNv cAQ8kQY0yG9zKnBdRkL8 DWgkV201LsVypASvZefi z9lzd3rygYs7EjVa VYPhwdUmnBuzPAE1i7Ca Gb76G32dZElnTWAiIQEc WFOgSBXigXlnsq5sdI5o Ii8+KG1wi7usrs22 iD93dKM+DUPbAVJ6gSak KSlyNTSroW3dRJjwEaG6 RJRhJzAceI73pTZtYSdp Sm6dfNwuiCarCL4z ARPedeytk899FbSaw9dp JBHloWYtIFrpQYK8B75f p4O0KQUrKQPdXFL6iXW4 nY2peOtgfqglaDQc dDsgdmVydGljYWwtYWxp Z692FQXemOmwVuJzgOTv O8wolyFVYE9bDspcdAR+ YBWaTQJ4oStxRBvb BZPkrI9vJFMbM2f3LsGg VmY1QFliX3EcaoJ5TITi nXMnBAPenYOFrF1xkwxb e3yyyrwtFsMqXPWa SBv5AKe8EUBzlDnnHwUv NVO9WgF7CGD6sKBlyP2u uYdwuvknfO5bGdd+RklO OjwvdGQ+PHRkIHN0 pHojSRmwIPChcJ0eXOXh F4r8LlFzZcB5KAssL9Ux axP2TPVmcDQwAWQlvLVV dX3ovnhim1wudpod FzOdPVMoNLy5MMm4LQPx oRjeMyKsOYP8WfR4ALY4 dZJcqJ5oqAhkrydxfN8x Oyc+TVJOOjwvdGQ+ PPWnGEK6wGtnIRrwWDBv vK3tGGXmN0v0VsJyHjX2 WSibT4SmsoM0PPCbuBXi QCTkjWBStT0ssodo w7jkumjrWrXmJHIoWUx1 WMx2JMOqhWruMkTgFCV6 OhK9XUM6eABwtH6hyEnp grsfaG2uQfc+UGF5 JMD0AU64GM86C6ZrBtzg dGFibGU+PHRhYmxlIHdp ZHRoPScxMDAlJyBzdHls WM7uQl2ePVVpQASz bGxh (more content not included)... [facility] RPR with Conf Rfxon 02-25-20 22 Reagin Ab RPR Ql (S) Non-Reactive Invalid Interpretation Code Non [facility]active [facility] Comment on above: Result Comment: Perf ormed at: [facility] [address] [id number] PhD Ed Yeboah Performed By: #### 1 [id number] ####[facility] [address] [place] [address] Consent for Treatmenton Consent for Treatment [id number] #1.00CD:127 [facility] Gest Scr Glu 1 Hron 02-23-20 22 Glucose [Mass/Vol] 121 mg/dL Normal 55-140 [facility] Comment on above: Result Comment: Posi tive Screen =1 HR > 140mg/dL Performed By: #### 1 [id number] ####[facility] [address] [place] [address] Hct & Hgbon 02-22-2022 Hematocrit (Bld) [Volume fraction] 33.3 % Low 34.0-46.0 [facility] Comment on above: Performed By: #### 1 [id number] ####[facility] [address] [place] [address] Hemoglobin (Bld) [Mass/Vol] 11.6 g/dL Low 12.0-16.0 [facility] Comment on above: Performed By: #### 1 [id number] ####[facility] [address] [place] [address] Physician Orderon 02-22-2022 Physician Order [id number] #1.00CD:127 [facility] Vital Signs Date Time Vital Sign Value Performing Clinician Facility 12-31-2023 10:56-0500 Body mass index (BMI) [Ratio] 34.51 kg/m2 Maame BARR Work Phone: [facility] 12-31-2023 10:56-0500 Body weight 88.36 kg Maame BARR Work Phone: [facility] 12-31-2023 10:56-0500 Diastolic blood pressure 56 mm[Hg] Maame BARR Work Phone: [facility] 12-31-2023 10:56-0500 Systolic blood pressure 108 mm[Hg] Maame BARR Work Phone: [facility] 05-31-2022 15:01-0400 Hourly Rounding Devin Pereira [facility] Comment on above: Result Comment: discharge instructions g iven 05-31-2022 14:36-0400 Hourly Rounding Devin Pereira [facility] Comment on above: 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 05-31-2022 13:00-0400 Hourly Rounding Devin Pereira [facility] 05-31-2022 09:24-0400 Body temperature 98.06 [degF] Devin Pereira [facility] 05-31-2022 09:24-0400 Diastolic blood pressure 73 mm[Hg] Devin Pereira [facility] 05-31-2022 09:24-0400 Heart rate 49 /min Devin Pereira [facility] 05-31-2022 09:24-0400 Mean blood pressure 90 mm[Hg] Devin Pereira [facility] 05-31-2022 09:24-0400 Systolic blood pressure 125 mm[Hg] Devin Pereira [facility] 05-31-2022 09:24-0400 Blood Pressure Location Devin Pereira [facility] 05-31-2022 09:24-0400 Mean blood pressure 90 mm[Hg] Devin Pereira [facility] 05-31-2022 09:24-0400 Respiratory rate 15 /min Devin Pereira [facility] 05-30-2022 20:40-0400 Body temperature 98.24 [degF] Devin Pereira [facility] 05-30-2022 20:40-0400 Diastolic blood pressure 72 mm[Hg] Devin Pereira [facility] 05-30-2022 20:40-0400 Heart rate 61 /min Devin Pereira [facility] 05-30-2022 20:40-0400 Mean blood pressure 86 mm[Hg] Devin Pereira [facility] 05-30-2022 20:40-0400 SaO2% (BldA) [Mass fraction] 97 % Devin Pereira [facility] 05-30-2022 20:40-0400 Systolic blood pressure 113 mm[Hg] Devin Pereira [facility] 05-30-2022 20:40-0400 Mean blood pressure 86 mm[Hg] Devin Pereira [facility] 05-30-2022 14:51-0400 Body temperature 98.24 [degF] Devin Pereira [facility] 05-30-2022 14:51-0400 Diastolic blood pressure 70 mm[Hg] Devin Pereira [facility] 05-30-2022 14:51-0400 Heart rate 52 /min Devin Pereira [facility] 05-30-2022 14:51-0400 Mean blood pressure 84 mm[Hg] Devin Pereira [facility] 05-30-2022 14:51-0400 Systolic blood pressure 114 mm[Hg] Devin Pereira [facility] 05-30-2022 14:51-0400 Blood Pressure Location Devin Pereira [facility] 05-30-2022 14:51-0400 Respiratory rate 16 /min Devin Pereira [facility] 05-30-2022 14:45-0400 Blood Pressure Location Devin Pereira [facility] 05-30-2022 14:45-0400 Respiratory rate 16 /min Devin Pereira [facility] 05-30-2022 08:00-0400 SaO2% (BldA) [Mass fraction] 98 % Devin Pereira [facility] 05-30-2022 08:00-0400 Mean blood pressure 111 mm[Hg] Devin Pereira [facility] 05-28-2022 16:40-0400 Hourly Rounding Devin Pereira [facility] Comment on above: Result Comment: Patient declines vaginal exam due to expressing not having any pain or noticable contractions. RN notes decline. 05-28-2022 16:00-0400 Hourly Rounding Devin Pereira [facility] Comment on above: Result Comment: Discharge instructions g iven and educated to come to hospital tomorrow at 1700 for induction. Educated on induction process and what inductions intail. RN answers questions from patient. Patient voices no concerns and agrees. 05-28-2022 15:00-0400 Hourly Rounding Devin Pereira [facility] Comment on above: Result Comment: patient resting watching tv with fiance in room. 05-28-2022 15:00-0400 Promise to Return Devin Pereira [facility] 05-28-2022 14:45-0400 Blood Pressure Location Devin Pereira [facility] 05-28-2022 14:45-0400 Body temperature 98.06 [degF] Devin Pereira [facility] 05-28-2022 14:45-0400 Diastolic blood pressure 54 mm[Hg] Devin Pereira [facility] 05-28-2022 14:45-0400 Heart rate 64 /min Devin Pereira [facility] 05-28-2022 14:45-0400 Mean blood pressure 68 mm[Hg] Devin Pereira [facility] 05-28-2022 14:45-0400 Respiratory rate 16 /min Devin Pereira [facility] 05-28-2022 14:45-0400 Systolic blood pressure 97 mm[Hg] Devin Pereira [facility] 05-28-2022 14:00-0400 Promise to Return Devin Lorenzoten [facility] 05-28-2022 13:00-0400 Promise to Return Devin Pereira [facility] 05-28-2022 12:00-0400 Diastolic blood pressure 53 mm[Hg] Devin Kelli [facility] 05-28-2022 12:00-0400 Heart rate 50 /min Devin Lorenzoten [facility] 05-28-2022 12:00-0400 Mean blood pressure 66 mm[Hg] Devin Kelli [facility] 05-28-2022 12:00-0400 Systolic blood pressure 91 mm[Hg] Devin Kelli [facility] 05-28-2022 08:47-0400 Body temperature 97.7 [degF] Devin Lorenzoten [facility] 05-28-2022 08:47-0400 Diastolic blood pressure 59 mm[Hg] Devin Lorenzoten [facility] 05-28-2022 08:47-0400 Heart rate 64 /min Devin Lorenzoten [facility] 05-28-2022 08:47-0400 Mean blood pressure 74 mm[Hg] Devin Lorenzoten [facility] 05-28-2022 08:47-0400 Respiratory rate 18 /min Devin Lorenzoten [facility] 05-28-2022 08:47-0400 Systolic blood pressure 103 mm[Hg] Devin Lorenzoten [facility] 05-28-2022 08:45-0400 Blood Pressure Location Devin Lorenzoten [facility] Encounters Encounter Date Encounter Type Care Provider [...] 12-18-2022 End: 12-19-2022 ambulatory Kaelyn X Orzech Facility:[facility] Start: 12-18-2022 End: 12-18-2022 Patient encounter procedure Kaelyn X Orzech [facility] Start: 12-04-2022 End: 12-05-2022 ambulatory Kaelyn X Orzech Facility:[facility] Start: 12-04-2022 End: 12-04-2022 Patient encounter procedure Kaelyn X Orzech [facility] Start: 11-28-2022 End: 11-29-2022 ambulatory Kaelyn X Orzech Facility:[facility] Start: 07-11-2022 End: 07-12-2022 ambulatory Devin Pereira Facility:[facility] Start: 07-11-2022 End: 07-11-2022 Lab Drop off Devin Pereira [facility] Start: 05-29-2022 End: 05-31-2022 Evaluation and management of inpatient Devin Pereira Facility:[facility] Start: 05-29-2022 End: 05-31-2022 Evaluation and management of inpatient Devin Pereira [facility] Start: 05-28-2022 End: 05-28-2022 ambulatory Devin Pereira Facility:[facility] Start: 05-28-2022 End: 05-28-2022 OB Triage Devin Pereira [facility] Start: 05-21-2022 End: 06-24-2022 Pre-admission assessment Devin Pereira [facility] Start: 05-07-2022 End: 05-08-2022 ambulatory Devin Pereira Facility:[facility] Start: 05-07-2022 End: 05-08-2022 ambulatory Devin Pereira Facility:[facility] Start: 05-07-2022 End: 05-07-2022 Lab Drop off Devin Pereira [facility] Start: 02-22-2022 End: 02-23-2022 ambulatory Devin Pereira Facility:[facility] Procedures Date Procedure Procedure Detail Performing Clinician [...] AM EST Routine [facility] [address] [address] Earl Mendoza, DO [address] [place], [place] [id number] [facility] Start: 01-27-2024 End: 01-27-2024 Professional / ancillary services management 01/27/2024 9:00 AM EST Ancillary Procedure [facility] [address] [place] [address] [facility] Start: 12-31-2023 End: 12-31-2024 Alpha fetoprotein, maternal Alpha fetoprotein, maternal Lab Routine Second trimester Expected: 12/31/2023 (Approximate), Expires: 12/31/2024 [facility] Comment on above: Expected: 12/31/2023 (Approximate), Expires: 12/31/2024 Start: 12-31-2023 End: 12-31-2024 US for US OB ANATOMY SINGLE W US OB CERVICAL LENGTH Imaging Routine Screening, , for anatomic survey Expected: 12/31/2023 (Approximate), Expires: 12/31/2024 [facility] Comment on above: Expected: 12/31/2023 (Approximate), Expires: 12/31/2024 CHLAMYDIA TRACHOMATI S (GENITO/STI) CHLAMYDIA TRACHOMATIS (GENITO/STI) Lab Routine Exposure to STD Ordered: 12/31/2023 [facility] Comment on above: Ordered: 12/31/2023 Cytology Cervical or vaginal smear or scraping study Pap Smear Pathology and Cytology Routine Well woman exam with routine gynecological exam Ordered: 12/31/2023 [facility] Comment on above: Ordered: 12/31/2023 Neisseria gonorrhoea e DNA [Presence] in Unspecified specimen by JAYDON with probe detection Neisseria gonorrhea DNA probe, direct Lab Routine Exposure to STD Ordered: 12/31/2023 [facility] Comment on above: Ordered: 12/31/2023 SURESWAB(R) ADVANCED VAGINITIS PLUS, TMA SURESWAB(R) ADVANCED VAGINITIS PLUS, TMA Pathology and Cytology Routine Vaginal discharge Or[facility] Comment on above: Ordered: 12/31/2023 Immunizations Immunization Date Immunization Notes Care Provider Shaun [email or web address] 01-18-2013 hepatitis A vaccine, unspecified formulation [facility] 09-12-2010 meningococcal ACWY vaccine, unspecified formulation [facility] 09-12-2010 tetanus toxoid, reduced diphtheria toxoid, and acellular pertussis vaccine, adsorbed [facility] 02-23-2003 DTaP, unspecified formulation Qubole [facility] 02-23-2003 measles, mumps and rubella virus vaccine [employer] [facility] 02-23-2003 poliovirus vaccine, unspecified formulation [facility]ole [facility] 06-27-1999 hepatitis B vaccine, pediatric or pediatric/adolescent dosage Q[facility]ole [facility] NEGATED: Highlighted row has not occurred!11-28-2022 influenza virus vaccine, unspecified formulation [facility] NEGATED: Highlighted row has not occurred!11-28-2022 SARS-CoV-2 mRNA (tozinameran 5y-11y) vaccine [facility]ole [facility] Payers Date Payer Category Payer Private Health Insurance [facility] [id number] 2022-Present [address] [address] [place] [address] [id number] 2022 Private Health Insurance [id number] 2020 Private Health Insurance [id number] 1997 Unknown [id number] 2.16.840.1.740849.3.579. 2.727 1997 Unknown [id number] 2.16.840.1.071339.3.579. 2.727 1997 Unknown [id number] 2.16.840.1.031613.3.579. 2.727 1997 Unknown [id number] 2.16.840.1.144927.3.579. 2.727 1997 Unknown [id number] 2.16.840.1.601698.3.579. 2.727 1997 Unknown [id number] 2.16.840.1.741163.3.579. 2.727 1997 Unknown [id number] 2.16.840.1.695036.3.579. 2.727 1997 Unknown [id number] 2.16.840.1.959760.3.579. 2.727 1997 Unknown [id number] 2.16.840.1.240859.3.579. 2.727 1997 Unknown [id number] 2.16.840.1.895565.3.579. 2.1259 1997 Unknown [id number] 2.16.840.1.535579.3.579. 2.1259 1997 Unknown [id number] 2.16.840.1.874622.3.579. 2.1259 Social History Date Type Detail Facility Tobacco smoking status No Smoking Status Entered [facility] Start: 12-02-2023 Sex Assigned At Female F [facility] Start: 11-28-2022 End: 12-02-2023 Tobacco smoking status Never smoked tobacco (finding) [facility] Tobacco smoking status Never [facility] Start: 12-31-2023 Alcohol intake Current drinke r of alcohol (finding) [facility] Start: 12-02-2023 History of Social function [facility] Start: 12-02-2023 Alcohol Comment caffeine: coff ee in the am [facility] Start: 09-17-2023 [facility] Start: 1995 Sex Assigned At Female N [facility] Start: 10-02-2023 Gender identity Identifies as female gender (finding) [facility] Functional Status Date Assessment Result Facility 05-29-2022 Functional Status No [facility] 05-28-2022 Functional Status N/A [facility] Clinical Notes 05-07-2022 to 12-31-2023 CORTNEY [...] which includes the following prescription(s): cholecalciferol and [id number]-[id number]. Medical History: Active Ambulatory Problems Diagnosis Date [...] nursing note reviewed. Exam conducted with a human resources operations coordinator present. Vitals: Estimated body mass index is [...] obtained without difficulty and [facility]. Follow Up: Patient is to return to our office in 4 weeks for routine OB appointment Documented by Ada Hollis LPN on behalf of: CORTNEY Ospina documented in this encounter [facility] 06-04-2022 Note DATE OF DISCHARGE: 0 05/31/2022 [...] complication. Devin Pereira M.D. lr Dictated: 06/03/2022 [id number] Transcribed: 06/03/2022 [facility] Comment on above: Result Comment: Elec tronically Signed By: Devin Pereira MD\.br\Date and Time Signed: 06/04/22 08:08 EDT 05-31-2022 Note The following Patien t Education Materials have been given to the patient: [facility] 05-31-2022 Note HOSPITAL REGULATIONS : All [...] details. Devin Pereira M.D. ls Dictated: 05/31/2022 [id number] Transcribed: 05/31/2022 [facility] Comment on above: Result Comment: Elec tronically Signed By: Devin Pereira MD\.br\Date and Time Signed: 05/31/22 09:16 EDT 05-30-2022 Evaluation + Plan note Extrac noy from: Title:Post-LDE Author:Jose Miguel Garcia Jr., DO ate:05/30/22 Plan Transfer/ Discharge: Condition stable. Extracted from: Title:L&D Epidural note Author:Omaira Garcia Jr., DO Date:05/29/22 Impression and Plan Plan Labor epidural at request of patient.. [facility]07-06-2022 Hospital Discharge instructions Follow Up Care 05/29/2022 07:05:03 With:Dr. Pereira [phone] Address:Unknown When:6 weeks Comments:Call for any problems. Support Group first Friday of the month at [address] [place] [address] if fever>100.5 F, heavy bleeding With: Services [phone] Address:Unknown When:06/03/2022 14:00:00 [facility]07-05-2022 NoteThe following Patient Education Materials have been given to the patient: [facility] Hospital Discharge instructions Follow Up Care 05/28/2022 08:38:04 With:Devin Pereira Address: [address] [place], [place] [address] Business (1) When:05/29/2022 17:00:00 Comments:Call for any problems.Return for contractions closer, longer, and harder.Return for decreased fetalmovement.Return if ruptured membranes or vaginal bleeding. [facility]06[facility] Evaluation + Plan note Diagnostic Tests Pending * Group B Streptococcus colonization by PCR [facility] Future [facility]uled Tests Radiology* US Abdomen, Limited [facility] Diagnosis Second trimester state, incidental Screening, , for anatomic survey Encounter for anatomic survey Well woman exam with routine gynecological exam Routine gynecological examination Exposure to STD Vaginal discharge Leukorrhea, not specified as infective documented in this [facility] Narrative No data available for this section [facility] No data available for this section [facility] No data available for this section [facility] Summary Purpose Family History No Family History Records FoundNo Family History Records Found Advance Directives No Advanced Directives Records FoundNo Advanced Directives Records Found Additional Source Comments Care Team (unrecognized sect ion and content) 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 [facility] [employer] provides no warranty or guarantee of the accuracy or completeness of information in this document.
== END 2024-01-27 08:59 | disposition home or self-care (01) ==
LOC: NOMS 08:58
PROVIDERS: Visit Provider Obstetrics & Gynecology
DX: Z36.89 Encounter for other specified antenatal screening (principal); Z3A.19 19 weeks gestation of pregnancy; O44.42 Low lying placenta NOS or without hemorrhage, second trimester
CPT/HCPCS: 76805; 76817

== ENCOUNTER 2024-03-02 09:56 | Outpatient (OUT) | payer OTHER, SELFPAY ==
--- NOTE | 2024-03-02 09:59 | US_ITS ---
[address] [address] Patient Name: ADONAY GENAO MRN: [id number] date: 1995 Sex: F Assigned Patient Location: [facility] Current Patient Location: [facility] Accession/Order Number: [id number] Exam Date: 03/02/2024 10:02 Report Date: 03/02/2024 10:57 At the request of: EARL NDIAYE Procedure: US OB growth EXAMINATION: US OB growth, US OB placenta, US OB cervical length HISTORY: SGA COMPARISON: No relevant comparison available. FINDINGS: Heart Rate: 152.0 bpm Amniotic Fluid Volume: 11.9 cm Number: 1.0 Position: Cephalic presentation, longitudinal lie Placenta: Posterior. The placental edge is 6.5 cm from the internal cervical os. No intraplacental or retroplacental echogenic abnormality Cervix: 4.1 cm in length. Small amount of fluid in the endocervical canal measuring up to 3 mm Maximum Vertical Pocket: 2.7 cm cm 1.8 cm cm 3.9 cm cm 3.5 cm cm BIOMETRY: BPD: 6.1 cm cm; 24 weeks 5 days; 9% HC: 22.2 cmcm; 24 weeks 2 days , less than 3% AC: 19.9 cm cm; 24 weeks 4 days, 10% FL: 4.6 cm cm; 25 weeks 3 days; 22.4 % % EFW: 739.9 grams, 1 lb. 10 oz., 9% FL/AC: 23.3 FL/BPD: 76.4 HC/AC: 1.1 GESTATIONAL AGE: Age by EDC: 25 weeks 6 days RICH by EDC: 06/09/2024 Age by US: 24 weeks 5 days RICH by US: 06/17/2024 US/US OB growth IMPRESSION: Head circumference less than the 3rd percentile Estimated weight 9th percentile Placental edge 6.5 cm from the internal cervical os Cervix measures 4.1 cm in length. 3 mm dilatation and fluid filling of the endocervical canal Electronically authenticated by: MALIKA WILKINS Date: 03/02/2024 10:57
--- NOTE | 2024-03-02 09:59 | US_ITS ---
[address] [address] Patient Name: ADONAY GENAO MRN: [id number] date: 1995 Sex: F Assigned Patient Location: [facility] Current Patient Location: [facility] Accession/Order Number: [id number] Exam Date: 03/02/2024 10:02 Report Date: 03/02/2024 10:57 At the request of: EARL NDIAYE Procedure: US OB cervical length EXAMINATION: US OB growth, US OB placenta, US OB cervical length HISTORY: SGA COMPARISON: No relevant comparison available. FINDINGS: Heart Rate: 152.0 bpm Amniotic Fluid Volume: 11.9 cm Number: 1.0 Position: Cephalic presentation, longitudinal lie Placenta: Posterior. The placental edge is 6.5 cm from the internal cervical os. No intraplacental or retroplacental echogenic abnormality Cervix: 4.1 cm in length. Small amount of fluid in the endocervical canal measuring up to 3 mm Maximum Vertical Pocket: 2.7 cm cm 1.8 cm cm 3.9 cm cm 3.5 cm cm BIOMETRY: BPD: 6.1 cm cm; 24 weeks 5 days; 9% HC: 22.2 cmcm; 24 weeks 2 days , less than 3% AC: 19.9 cm cm; 24 weeks 4 days, 10% FL: 4.6 cm cm; 25 weeks 3 days; 22.4 % % EFW: 739.9 grams, 1 lb. 10 oz., 9% FL/AC: 23.3 FL/BPD: 76.4 HC/AC: 1.1 GESTATIONAL AGE: Age by EDC: 25 weeks 6 days RICH by EDC: 06/09/2024 Age by US: 24 weeks 5 days RICH by US: 06/17/2024 US/US OB cervical length IMPRESSION: Head circumference less than the 3rd percentile Estimated weight 9th percentile Placental edge 6.5 cm from the internal cervical os Cervix measures 4.1 cm in length. 3 mm dilatation and fluid filling of the endocervical canal Electronically authenticated by: MALIKA WILKINS Date: 03/02/2024 10:57
--- NOTE | 2024-03-02 10:01 | US_ITS ---
[address] [address] Patient Name: ADONAY GENAO MRN: [id number] date: 1995 Sex: F Assigned Patient Location: [facility] Current Patient Location: [facility] Accession/Order Number: [id number] Exam Date: 03/02/2024 10:02 Report Date: 03/02/2024 10:57 At the request of: EARL NDIAYE Procedure: US OB placenta EXAMINATION: US OB growth, US OB placenta, US OB cervical length HISTORY: SGA COMPARISON: No relevant comparison available. FINDINGS: Heart Rate: 152.0 bpm Amniotic Fluid Volume: 11.9 cm Number: 1.0 Position: Cephalic presentation, longitudinal lie Placenta: Posterior. The placental edge is 6.5 cm from the internal cervical os. No intraplacental or retroplacental echogenic abnormality Cervix: 4.1 cm in length. Small amount of fluid in the endocervical canal measuring up to 3 mm Maximum Vertical Pocket: 2.7 cm cm 1.8 cm cm 3.9 cm cm 3.5 cm cm BIOMETRY: BPD: 6.1 cm cm; 24 weeks 5 days; 9% HC: 22.2 cmcm; 24 weeks 2 days , less than 3% AC: 19.9 cm cm; 24 weeks 4 days, 10% FL: 4.6 cm cm; 25 weeks 3 days; 22.4 % % EFW: 739.9 grams, 1 lb. 10 oz., 9% FL/AC: 23.3 FL/BPD: 76.4 HC/AC: 1.1 GESTATIONAL AGE: Age by EDC: 25 weeks 6 days RICH by EDC: 06/09/2024 Age by US: 24 weeks 5 days RICH by US: 06/17/2024 US/US OB placenta IMPRESSION: Head circumference less than the 3rd percentile Estimated weight 9th percentile Placental edge 6.5 cm from the internal cervical os Cervix measures 4.1 cm in length. 3 mm dilatation and fluid filling of the endocervical canal Electronically authenticated by: MALIKA WILKINS Date: 03/02/2024 10:57
--- OUTSIDE RECORDS SUMMARY | 2024-03-02 10:03 | XMS_ITS | CCD ---
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 Router Operator Radial Name Role Phone Shanna Daniel Primary Care Physician [phone] Carlie Leon Unavailable Corbin Ordonez Primary Care [...] Referring Unavailable Orzech, Kaelyn X Attending Unavailable Kelli, Devin Collier Admitting Unavailable Kelli, Devin Collier Attending Unavailable Orzech, Kaelyn X Attending Unavailable EARL MENDOZA Attending Unavailable MAAME [...] capsule (6 sources) Serotonin Reuptake Inhibitor Start: 07-05-2022 Prozac 20 mg Cap Refills(s) 0 Start Date: 05/28/22 Status: Ordered ibuprofen 600 mg oral tablet (5 sources) Nonsteroidal Anti-inflammatory Drug Start: 05-31-2022 take 1 tablet by mouth every six hours ibuprofen 600 mg Tab 600 mg = 1 tab(s), Oral, q6hr, # 15 tab(s), Refills(s) 0, Pharmacy: [facility] SUSANA REGAN, 154.9, cm, 05/29/22 7:54:00 EDT, Height/Length Dosing, 84.5, kg, 05/29/22 7:54:00 EDT, Weight Dosing Start Date: 05/31/22 Status: Ordered Vrumhjxh-Hoh-Va-FA ( 1 + IRON PO) (3 sources) Rnvfdwyr-Pjj-Bz-FA ( 1 + IRON PO) Take by [...] day, # 14 tab(s), Refills(s) 0, Pharmacy: [facility] SUSANA REGAN, 155, cm, 04/25/20 17:23:00 EDT, Height/Length [...] containers..01 ThinPrep Vial Age Algo ACOG Hodan... -22 12 FLAG LEGEND: L-Low Normal,H-High Normal,LL-Alert Low,HH-Alert High <-Panic Low,>-Panic High,A-Abnormal,AA-Critical Abnormal Performed at: 01 =[facility] [address] [place] [address] Terri Cantu MD, IGP, RFX APTIMA HPV ASCU Note . [facility] Comment on above: TESTS RESULT FLAG UN ITS REF RANGE LAB DIAGNOSIS: 02 NEGATIVE FOR INTRAEPITHELIAL LESION OR MALIGNANCY. Specimen adequacy: 02 Satisfactory for evaluation. No endocervical component is identified. An endocervical component is not commonly seen in the patient. Performed by: 02 Ana Stacy, Patroller ([facility]) . 02 Note: Note 02 The Pap [...] <-Panic Low,>-Panic High,A-Abnormal,AA-Critical Abnormal Performed at: 02 WB [facility] [place] [address] [place], [place] [address] Terri Cantu MD, Performed at: =[address] [id number] Balance Staff Staker: Terri Cantu MD, Phone: [phone] Performed at: [address] [id number] Balance Staff Staker: Terri Cantu MD, Phone: [phone] SPATULA-ALONE [facility]OCERVIX [facility] URETHRITIS/DISCHARGE PLUS VA GINITIS (HTRX)on 01-02-2024 ATOPOBIUM VAGINAE 0 [facility] ATOPOBIUM VAGINAE Not detected [facility] BVAB 2,3 (BACTERIAL VAGINOSIS ASSOCIATED BACTERIA 2, 3); MOBILUNCUS SPP 0 [facility] BVAB 2,3 (BACTERIAL VAGINOSIS ASSOCIATED BACTERIA 2, 3); MOBILUNCUS SPP Not detected [facility] BASSEM ALBICANS, PARAPSILOSIS, TROPICALIS 0 [facility] BASSEM ALBICANS, PARAPSILOSIS, TROPICALIS Not detected [facility] BASSEM GLABRATA 0 [facility] BASSEM GLABRATA Not detected [facility] BASSEM KRUSEI 0 [facility] BASSEM KRUSEI Not detected [facility] CHLAMYDIA TRACHOMATIS [address] [facility] CHLAMYDIA TRACHOMATIS Not detected [facility] GARDNERELLA VAGINALIS [address] [facility] GARDNERELLA VAGINALIS Not detected [facility] MEGASPHAERA (TYPES 1, 2) 0 [facility] MEGASPHAERA (TYPES 1, 2) Not detected [facility] MYCOPLASMA GENITALIUM [address] [facility] MYCOPLASMA GENITALIUM Not detected [facility] NEISSERIA GONORRHOEAE [address] [facility] NEISSERIA GONORRHOEAE Not detected [facility] TRICHOMONAS VAGINALIS [address] [facility] TRICHOMONAS VAGINALIS Not detected N [facility] Urinalysis macro (dipstick) panel (U)on 12-31-2023 Bilirubin, UA Positive Negative - 4(70) +++ mg/dL [facility] Comment on above: small Blood, UA Positive Negative - 50 Luis/mcL [facility] Comment on above: trace-intact Clarity, UA Clear [facility] Color, UA Yellow [facility] Glucose, UA Negative Negative - 2000(110) ++++ mg/dL [facility] Interpretation and review of laboratory results Abnormal [facility] Ketones, UA Positive Negative - 160(16) ++++ mg/dL [facility] Comment on above: trace Leukocytes, UA Negative Negative - 500+++ Kahlil/mcL [facility] Nitrite, UA Negative Negative - Positive [facility] pH, UA 6.0 5 - 9 [facility] Protein, UA Positive Negative - 2000(20) ++++ mg/dL [facility] Comment on above: 100 Spec Grav, UA 1.030 1 - 1.03 [facility] Urobilinogen, UA 1.0 0.2 - 12 mg/dL [facility] Coding Summary.on 12-24-2022 Coding Summary. [id number] Gh0bWw+PGhlYWQ+PE1FV MKgH60ceQOqjN9AQ2pWT K0DTQJDMJQSCM2MQJ9ux MI7KWaiI7NbxzRk ZchprNKxHU22PWt1ZPG3 kCevVOoihH6ycZEjY3l0 PgAbYS54rD80QVnpSUCj XeR1MaEpoykteQEf E2ibJcMogVEvWbu+PHRh YmxlIHdpZHRoPScxMDAl SfDseVscFU2iOo6zJENv LWNvbGxhcHNlOiBj y0vuICNxNXrvVC1ekJdy R3AxwSS3UMNkm8f5Ec00 dHI+KHHrUHU4zZgaOFmc g145UhKvf2mcVEO5 iLSvYVczUJJ8J13qf6F0 WAIcIQNqWHC0sKU0eW9g bMgivitxH7EvnSCxLrO9 CDY4fSIhqN7pfYim ytngeM2jFsr+T42GQO7S REVOXH4KIsr5J9BeGgkj dHI+YM56AMAgVI25zMFr zZVfs7tipFh7CoVb FBNlGUF8qChySUzmp4Fl ZSHtB98vzTJnh4F4LNEh iUpvjKMzScBozBT2sS8p CEzwantfm1rmzzvi Ovrsq4cfmv58hY63U67q PPwjCTTxPYA2YGMfWTIz xIvxcj8mxJ9fUu9+IDxj a7hgr5busXd6XcVy KYTagjZucJqwWYM4r5Go Ck34B3SucTibw9OvUwv1 cv17hRDpe7X5jVQ5CNtx AWPxoH2pNJssXgM4 ITTjVtAnnR89lCQqSVai Il9xaUierWyjKI5lMSZh knuqTBGbqA4xDVZmfCNz oEjaQY8qMUGrgcpi j021PnVkMMV4ZJZnyMUa O0RwlM0qTfKcRQPdXXBa Y2UxmIWmILvrW373HOnf AxW3PURzcnCvZ6Qo KEXurHsrAcJ0y5K9Mz0P z5HgsdjoBYP5SAvkBYXq XgGrTzFzClQ4Z6DqMne3 NSOprMaxRX7rB2Yw PYAqetewoxbnnVB4UNNg YECdyO21wGWhFIhgGx7h t4Q3r875OYXgQTWcrZ07 Qs8bzDdfUVMsgTUB sM6nhugef5oklucyNqQt KXZoLDx7KUe6ODXinBuk AaAtJDA3WpQ0JLC6aCUk eL3oaMsqedkesW2n Oyc+Z09blW0lXXL2TEC2 fggaYKBrdgCaEM50VI32 D5ZkVmrhnWLggXG+PGRp zmBlfFiwCF4iEtNt q6pzr9QyPNvaJ6ScYSKu OWigMra0IQLqQSL7kQN1 jY7xFHLnYIpdk5K0xKC2 X2SdiaMeid3cx5gn OLOjLHqkN67uhKMai4N4 KFVlmEA7TURwiZwgNtGn bM52Xds+TABmwMzhh0Jf Jfpkj6war7wsgEy8 IjMwJSIgdmFsaWduPSJ0 x1AjHp28Y31jKPdwKNDf VYGkIOEnGGGxhKghhe2m eM9qPd8+PGNvbCB3 vSP5fE6sZHGzJcA7XAfx T800KhHoaOXmZzgoh9zj e3ujjMb8ZuBsAXVmcoHm uBreQZH1l2UxRk79 F81pKHyvKEAmSAWgVADa FMLjyOhikk0qtR7pRs2+ RA3gb5kion90pL13uUN+ GDLqZUL0bNlvFAls IXDzlY0xAQvcPrK2ZSRp ChOlpT01pTHnUDxxWv5y cTcptLluCU7aGCJnvine e367JlXwd4qzGWSd mUXtBQzyGPO9K08lp1B7 KFQwGTJvKJU1eOT2eT5z bGlnbjogbGVmdDsgdmVy oGquVNjkWYziU771 IHRvcDsnPlBhdGllbnQg CzNzGQh8P0KeMqr8JQIb iPpwYZ9pyKZpFGigAe1m bGmsxRfgXU4sAFVq mhyhg815DgSdo5jeMYRo cPFoCVsoUEH0E83oq4F9 CPItBCSjSAT5iDA6aM9l bGlnbjogbGVmdDsg ueHobOaoCDrpCLdsT762 IHRvcDsnPkJpcnRoIERh uIU2JO24TV77ySIgz3U8 cHC0T1UvXWIgzmjn vtulzMZ8ZQAyLWFodH89 Ca8dzXheYb8eEBJzTSD8 WNKhcSThU0CziR0wXxKy JNMaMKJuB9OsnFBh SMzpZ842GXzlXqN4EIZp rtQlI8KzBMTxiQzwWrM7 s4Y7Oy8EC0N2LV81GG23 zIGxi7I9xYS7Z7Xh PHSivtloyyewqRG5GGNt ZRLwoO96Mk0lcTeqLz7o PXJmIVM3EUEttSFoO0Na zE1aGtDwUWSvIZYc M4QssNUeDRwaX829YGlg LbJ0ONXkqgVtJ5SlRVNd eZpiZzU0g0Q5Vp8VEFc3 AA60AO72pRPmx7C9 sSW9B0YdQDEquddvaedq gQE3GYSbTUJqnD29Lz8a fVkgJm9sNPIwNPA7TREd zUHsH6KxgC7nKfEb BSGkJHBvC9EkrRRfTOei I508ZNgpJrU0EAEvntMe Q5GgBMZxvBseIdJ5o0B9 Nl9JVUQeDX61JFC4 uDV2HP41LC88H1BeJiil dGFibGU+PHRhYmxlIHdp ZHRoPScxMDAlJyBzdHls WJ2fJz4sKYIhWNAe fPyboEQuLnDow9jbUKNf IEmkPG9lnUkzZ2ZaxTK9 UNDzs7m9Ht66Z79vU0Rb dXA+UJCezOO5gXH1 bQ6aOvRuAtM0HAevN387 UfXcuSUyJdrqc7fgu6li oLb2WrN4COIlxrHcoVvt FZK1s1YxNb05A25r IHdpZHRoPSIxNSUiIHZh dRuiat9ifI4fOo0+PGNv kRL0rQE0lO3oIiFmQqC9 MVdrW347NgLrwXIc Rxqli4lzu1knaMk3LtWb QPFjpwQjqNvkNVS2u4Lb Ws87B8EwiMyge2CcIbk2 pf57xRTna4L5aDW8 W5LwGXHnhtbwzCTeiQbl VG5fKPLunadwIEIwsY1i DZJoB5j0FzZuTeC5BBcs V1HqpzV6CCJuhOHq QExeWWB8H82lr2Z5WFXi ABErYBE3uER5iA2whYip bjogbGVmdDsgdmVydGlj XWldIDqjN256NUOr vOksMRCxkY6vHDHsvYPy uPqlFZ7dLAEovhjdAmIQ Hw9ADuenS4FUMGDCQNJf TTwvdGQ+PHRkIHN0 tYuxWAxjQCDqwO8rDTKy F1i7JnJfSkY5PVpcK4Mi TVIhkgdlCt29oJ6uHhWw FeQ2FPviP2YegaW1 QSXtfVPtDSvbZUL2D17b l9A4OQEyBSLoJZM5jFR9 fP7jqFicssxcaBXgePbl dmVydGljYWwtYWxp T609XGVwmCpjPyQpDtQ5 SrX0QOx9P8XwDrh5ALTn lMjgQZ8lmYUaOKxmXc8n yAtfzFsoIY2wSZSp riryXHWfhG1hPBScuDDj aRmgPJ7aAVNmcicdb838 TnZbWYV9YDDwmJJgU4Pr kD5kPiKkLUTqKWPi B1IauWSeBWnyB160OTwz OkQ7NDAyuaAuT9IuNZBy jOgoAwH7l7C7Za3sAFGM ZWFyczwvdGQ+PHRk ATU4uFhvENtkIIZqqS7u UDCvP7y3IwLrZvS2DKof N2TvFQWupuskFf50aN0a NpDuVpU0OKlkT5Ji fxV0IEYtgRSuRZwmGWJ9 S80rg9O6YSTtCRSkRNI5 nWA3vY5rkBamstgxoBFz dDsgdmVydGljYWwt ILstI854IOWrmObeRjTd bWFsZTwvdGQ+PHRkIHN0 oBocBMzpKNVduG8pUFRe E3w5UiHsEtT9PIvm C2EhLWTlrhasZi68hO0s VbIvJcI9JUfyW2HanmK3 BYGovBQiHWoqAEL6U89r i3G6EJAdOMZvVZC3 jWW7sG2nuMibprzgaPDm dDsgdmVydGljYWwtYWxp B101MGOouCkxQt16yLNn uNqfabE3D0EnMidh dHI+RV09YZSiGH54nTCm zLIxb0yagBq7PwGpLVZk FTA2cQqeDAhtq4DjSSYc W36ugWXqz8O2NWHl zYbdoCWxQfYsrDE5fM5n ESydsodqu8iaqnldEuxi w6gvvu08hD57M93dATam ZHRoPSIzMCUiIHZh mBmszm7huX7cHz5+PGNv hCT8jQJ3aM0sDsDyEvW7 DJglO554MrDxoXUoBjmu b6wky3nivKa4DiNq TPJpmeGedXaiAEZ4b9Eu Nm59T41mUXooWZJwLPVl OPPkBZEnnKjpao4qyG7f Ii8+DF2lt2bsdk48 uB60fUJ+GPReQLY5wFjx NYpdJFOtsJ5xWMmaWmC7 YRJeEfIxoL83vMFuUVqw Dn0ctLrzsMncVD0x PWDxsdhiq934TwGoj4ju BHXvvAUxNOxfYYO6R70r v5G7MONwIJWzEDJ4eZD5 iN4uwQpobtxbdGZf dDsgdmVydGljYWwtYWxp U645VGXzkEqlEgKxpKMg S6wcyhZNNU7qYkcolVA+ PVNiOTC4sHfrQZvp FNQitB5jUZYmZ1y8UiQn ZmJ7HAenO0HfkcC3ASVq kVWoUBYmqOSRtF3dgmut m4mjprmeKcKdZWRd TSm0CDj2MQKrtPatVnCy RFN4VgO6EJO2wYVjlK7b xVkpcferbL8zRwc+RklO OjwvdGQ+PHRkIHN0 bTumXEzhTAMjrM1kIEZe W3x6BrWpAiQ6JJdmF0Uq kgK6TZCncAVpVWImgQHD uX2aybrnv2fcslxf TpRvPNBmBXz8FOq9DJIp bKkrDfYyDLM6VdX1DOZ1 pAWioZ3jlOkvvskemE0e Oyc+TVJOOjwvdGQ+ QYIzXGN2nKeaPCxbKPAz qM6hXQAiZ9g8LhGdFtC1 NBdwU8DfhlE6PLHocNTd DIJbnYQHqM5lhaup h0bkytyoMkOsHCIwBSd6 DSc4TDJhqJfmUvQjBAP3 RjO0VEF0eZEhhD5ogXyf bbeqxZ9uZev+UGF5 LSO6WD65YQ20R0LgRjjn dGFibGU+PHRhYmxlIHdp ZHRoPScxMDAlJyBzdHls ZW5dQh3xCIScYCWv bGxh (more content not included)... Normal [facility] Consent for Treatmenton 11-25 Consent for Treatment [id number] #[id number] Normal [facility] US Abdomen, Limitedon 2022 US Abdomen, Limited [...] Meier MD Transcribed by: STEPHANIE Technologist: HW [facility] Consent for Treatmenton 11-24 Consent for Treatment [id number] #[id number]:[id number] [facility] Family Medicine Office/Clini c Noteon 11-29-2022 Family [...] Follow-up With When Contact Information Shanna Daniel DO, FAM [address], [address] [place] [address]- Additional Instructions: Patient Education Cholecystitis BMI for [...] Alcohol Use, 04/25/2020 Employment/School Employed, Work/School description: [employer]. Highest education level: University degree(s)., 05/29/2022 Home/Environment [...] Given Postpone due to refusal SARS-CoV-2 mRNA (tovickinameran 5y-11y) vac - Not Given Postpone due to refusal hepatitis A pediatric vaccine 01/18/2013 Recorded diphtheria/pertussis , acel/tetanus adult 09/12/2010 Recorded meningococcal conjugate vaccine 09/12/2010 Recorded poliovirus vaccine, inactivated 02/23/2003 Recorded measles/mumps/rubell a virus vaccine 02/23/2003 Recorded DTaP, unspecified formulation 02/23/2003 Recorded hepatitis B pediatric vaccine 06/27/1999 Recorded Date correction Normal [facility] Comment on above: Result Comment: Elec [...] care after the procedure. Medicines ? Take emcf-gkt-ezibbgv and prescription medicines only as told by [...] 11/10/2006 Document Revised: 03/19/2019 Document Reviewed: 03/19/2019 [employer] Patient Education ? 2019 [employer] Nutrition BMI for Adults Body mass index (BMI) is a number that is calculated from a person's weight and height. BMI may help to estimate how (more content not included)... Normal [facility] Coding Summary.on 07-17-2022 Coding Summary. [id number] Gh0bWw+PGhlYWQ+PE1FV RRmU48tnWEvoO0RE3jOS X1AJHPBUDVMAE7GCR9sp SO7TWmxO7XuvxJi FcfhnLKfPW45VSa2CLL6 cTtkFMkovP3wmNBqX1y8 SlIhLZ84wB17CKkfVICv TcW2WfCbmmyyoEKw T7ykZrNebBTyGxb+PHRh YmxlIHdpZHRoPScxMDAl XrRcnXdxOF3mSb3zRSKf LWNvbGxhcHNlOiBj u0fmTWCnYGraAR7ukIvb Z8LcfYP7ZHGax6x1Zs09 dHI+CYBiZHH7lPnnPHbz h882HdTjc4rwKYU5 aMNtONjkDHM8Y56sx9M6 HXPjDCOgDUP5sLV2rG9g kCbegbzoD3QhrOKcEeA9 QRV1xIGdsU9ipNpq vgampG6hGhd+I38XPB4D ORZKXM0HTwi1M3KxRujn dHI+FU39NSCaVJ07rNYx pKPvq1vohNa2JsHl TZBnESK9jRopULdux7Ch YYNpT58kmOCbn0Q9INGe nKdkwJEgKmKxxEB7aF3u UTbmjldtv9mcqwwq Jceow8rvdm67qP61T28k HErrULKtDFN1ZLHbYBMu zWitgm4fiK1kOa3+IDxj s7dat0xsyYx5WsNl UWWoauCgvRoaYBG4c8Ln Cg39E6VivBujp9UnNdj5 kd03hKYgd6L5sSO6XMjh GUNjuK8rDVvwEeE0 WGJiRxJjaC91wEFqNWhc Hq4nkJzoaIszDT7qHJJx idexYLBowV7wZPBrnHXv uDqmJN6uSDXzrpra u069TlFwYWX7AXLdgGJc U6WvlL3zWlFlEQWfBYTk J6WcrQSvAHcoG250NTrf HnE2PSKnncXgL3Ww IDXwqQdsGjM5k5M1Wq4P d6OycxcgUWN1ATikRJS9 JoX8WjAfWfB7L1OdMac0 OENvnUmpDC6wU0Xz GJGqtoqnqklucBF2EAMk JQNonQ52tCLnBKwaQe6q o6B9b653LFKmEQXyuF81 Ux6tqUqpKWPzqKOP eR7vgcdid2qzeckqOsXo IYOpWFf1MCp7MUBjzTkt QpWmJSL8ThB6BIV2uLYw zK3svUewyiufmP0f Oyc+E21uiX2kNOY7ETF6 pvckDATwcjWqEE96MY38 M0HdFxuhyMWvrFM+PGRp fjNyiUzzRB0xXwRd r9jpv9RxFCfsR7FxBMEk CDqzZpi3OXWbLHU2gPG6 rU6kCBRvBNiht2G7cMD3 O8XjpkBain6gw8eq CRHjUGulP02tkDSxa2A3 MAQomAZ8MMMrdZzqHdBk mN80Ngu+VWHfqGiye1Hm Xklzs2fcs5bhlEn6 IjMwJSIgdmFsaWduPSJ0 s9BvDw89H74fGVbuWJKl PODoVCBxPIZrmLhksf0l gV3lRe2+PGNvbCB3 yVL3tS1kJKNwGcM5CFmx M188NlDdfPQgUxdaz3tj i3gfwJi4BtXeGCVrhzSk pKlzNHH0w1SmNs94 U84lLIiwWEKuYELsXWVb RVBvuXoqnt6jzX0jEv6+ IJ7ne3nkyo69mQ17wZV+ DMCbVZA8fTavRIaj MPKwkU9oTUqkKzQ2EJBq FfXswR39qTKxGOulLt1a rEtdpCzxSX9tCUHwpigu x739DdHbb1fpOBWr cHNjSRpbHFJ5O48dy5P4 BMOeEGLePSN0sVS5aR9d bGlnbjogbGVmdDsgdmVy zZtnCAwtBQodI153 IHRvcDsnPlBhdGllbnQg TxDaMFt8V2QzZhh6JHYn lUxmBO3ooIWyGUwtKe4z kEaikAtgLI6uPOTu gokwf205AkCbm5fnESAx nBTaXNuaNZO3V06qd6L2 QIMuKXDnOJX3fLZ8cO4l bGlnbjogbGVmdDsg mmWdnSwsRVfjDCowO518 IHRvcDsnPkJpcnRoIERh uYZ2QG40AW53cRAty2L8 eFY0D1XvQZBaoprm vpkwoGY6YIBmLMAokL11 Hw4ufDgzOu9rQKNqQXR4 KFQhxXTeV8YphI3rAuTo UOGsWVEhI6BdbFZo RIckO449OBodFbB7SRMi wrSpQ9CwUGAjjQmhAqB8 c8W3Fs5CR2K9LH15VM42 tGVpf4N6yBT3X5Og ASCespypvbeonHX7DLLj UHDuxZ31On6vlMooKs5n RXDwPZX1YKQobUAaL1Dw wA2pUeIaANEfEMYq U7KlpGAeTYyqC542KAob VvX0ESRwlhGxP7NuSNTh lCszIwZ8q9N9Rb9WQGv9 RN99AK61nUKmz0V0 nNC9L0DmJCRzoyquyhlo uVD2FQHaWRPhgM56Pz4x bCzxWn4dVBXeJMQ9UKKe cOIbQ9VwyX9hZrEd MKQuTTNfS5VnsHCeMVjq Y833ZCtzKpM8BARaroTb W3BtIDFiuVdrEzB5x5H7 Ke6GYULuYB09FPO0 xMH0PX33PP57A8EeAhav dGFibGU+PHRhYmxlIHdp ZHRoPScxMDAlJyBzdHls UM9zVx9tNWEqNWJw oQchkIJnKfVef5nwYGCh CVtuNX2atYbtG6NwhXP1 TXNqp1i9Ap99T72xB1Qg dXA+NBZkiOG6gCO3 wF5bIdRtCtB5BNifQ935 PdTepIOwMfcgi9eih8ky aDl6AtK3SSUcliQqkYjz KPC5c7AmDw33Y31u IHdpZHRoPSIxNSUiIHZh vCvzot1qpM1yPo4+PGNv xWO0gOF5tD3zBtIhXoD0 MVwrZ499OzFxlUAu Vuoid1afv1wvhMp3IkFn GYYuydCipEfiJDT5k7Al Es70U3ImhPakj7HjUhr5 xr29mNIve6C5eHC5 P6SkPDTkorjgoPJnnWco RT6iMONekgzdEPNufD9v UCOmO0w5RpHzZkS3TNxc C0OitgW3ESPudNIj LBqlVZB6Q35jw2J9LBRj UPMzAMI6iEQ8aI0qwIns bjogbGVmdDsgdmVydGlj FLqvLTmfA112TJJp yQkdRWLztQ7gRDJeoDQk pQugVI4yFHMtkpguBsBA Xa8WXwkeP3DGNGFLVBTv TTwvdGQ+PHRkIHN0 mMlxGUhmRTAalL9rDNBn G6o9LsAnPyM5ROlgI4Kh VUAiipawGt34bM5rKkTu LtS4UXevM6AftdN9 ETTuoOFiUAlsZFV9L51w z5V8TGMrOWJpURT1kKO3 dM0ikThlisahcWCidTlo dmVydGljYWwtYWxp C267JVMehHanJmZyKwZ7 TlA1RRi1R3BiXuf4RKFr yZxgZH7kcUWpVWwaYq4e jRtmsXquSO1hEZIg xldmZITvnG9qPIUnjRPk mHixHL9oNTIihmdcu740 MrMkXKO8BTXktMEvO8Db rZ0bZhYvFEAgMAMt C8KbqSTfOIitY361VHfv DhA2EEJhthThQ9QwJQKx aIjbPzI3p2R8Hh0tPVLS ZWFyczwvdGQ+PHRk CZA9pLsyEOxzIUKssO8o PCHrE2y2PbOeNnX3XPix Z4SvVLInotzxYd65mV3z ScPhXiP9NBlzG0Tv ibF3UFCciATqVCavFUS0 U47kw2N8OUZyJOXlZHA5 tYE3fE0mjJjujkawrWPx dDsgdmVydGljYWwt KQgiR589OILwjRkqTiMj bWFsZTwvdGQ+PHRkIHN0 lGubKWmoYXSyaK4xRHZx H3v9EaTpGkV7PGwr O7PhWZIxuexeQf66eX9u FpXxSsU4UXtcA2LpawK8 RSLtoNQeNSlmEMJ8L67u c6J6QYCiDKEjDRX5 yQQ9bR9nvWiapzwomBKo dDsgdmVydGljYWwtYWxp Z419CMJnuLueFvtjApKU gu7dWG4iDgjybIP+ NB76qq25T0YlGflzFgj2 YEMzAWF2lGD6sR0wLULa QVqvn4O2qAB0G6RyliQv uc0yi2ugZXPaPIsu T22iyCVsf1Q7SWPrhGJ3 NZEdnYetXvCvsY08Xmw+ CWCnnLkeq9HlRuraa4ni y1wgwCp5WmXaNTZn ewDbqPsvMHF2g8MvMt74 G68qAQvjUDAgKZBeEKDp CIPzaHnzgn9yhZ1mEr5+ TXEkeHD5eGK5mV5o QzXcCdX9GHjvY733OsWq lGIvRxpyf4qia9rzfGe2 IjIwJSIgdmFsaWduPSJ0 y4KwEk14R2OdcCej j6UcDpg2bp08gQLzt2C6 nPA9N3XuUKWsbsulhFYz yNrmVX1lYHRsjdhqMMJm fR2eCMIvQ2y6AiNk SzR4HHxtT6QdlbB2GDGq sBRePYUirKVFzP0zalng z3wbbifnFdLpVJCbGNz2 HXu1GEKhoHtrIbIw YBN1TrQ1AGJ9lJUezS8t lIysyiqocP9tXdy+UGh5 a6rldSKxRX2zzIX6OH67 BS64wJCkn0O9bSI3 A5UcKDRinwkfotbioUP8 QVWgHYIcaR29Hb7yfYdv Kj0bGBNxYJK1TUKinPHe Y6BqeF4sFaJrKNEb ZBXaQ6OwgDUuBZwnR863 IJqlWgK8YZYjktXmH3Od JXPjiOqoOuZ7w1H7Yx6B EW26XS49XJ14bIWo t4G9sBS8X3TjNSHicdil pxsebJX6FLQaTLCglA52 Es3ffJsaJk7kRNRlMGH7 YKTuyXUyT2QhtZ6d RvCqAFTgYFDwX0HniSZe NQjbZ440GVdcNpF5EFPy ioPcZ7BuPOOxnPtnElR1 s4I8Qr0STt24BG24 LM66oBNrj6B3wSL9Y4Ms RCQeuqcwyzdkzDU9OXGm FTPreV16Ep8bxOrjZm0w RRXuLZK7PBGkjROi H4MtjF2cNvLeIZLeTSJb K9RdkDAuABmnH977ZZen XbO9TVCxnlLpH6GcRTWn cLvfEdA2e1Y3Ei5Q OXfojuo4R9HcYolrtXF+ EH56EHRtQI01nDQibWMi y2gukVt7LiJoCYMtSQF0 vGpjCAeni7XqGSFg Y29s (more content not included)... Normal [facility] Lab Miscellaneous-LCon 07-17 Lab Miscellaneous COMMENT Invalid Interpretation Code [facility] Comment on above: Result Comment: Test Ordered: [id number] IGP,rfxAptima HPV all,16/18,45 IGP,rfxAptima HPV all,16/18,45 Note WB TESTS RESULT FLAG UNITS REF RANGE LAB Clinician Provided Cytology Information No. of containers..01 ThinPrep Vial DIAGNOSIS: 01 NEGATIVE FOR INTRAEPITHELIAL LESION OR MALIGNANCY. Specimen adequacy: 01 Satisfactory for evaluation. Endocervical and/or squamous metaplastic cells (endocervical component) are present. Performed by: Madie Dong Patroller ([facility]) . 01 Note: Note 01 The Pap [...] Low,>-Panic High,A-Abnormal,AA-Critical Abnormal Performed at: [address] [facility] [place] [address] Terri Cantu MD, Performed at: [facility] [id number] MD Pepe Murray Performed By: #### 1 [id number] ####[facility] [place] [address] Lab Miscellaneous-LCon 07-12 Test Code 072637 Invalid Interpretation Code [facility] Comment on above: Result Comment: Test code corrected. 07/12/2022 06:39:13 EDT Performed By: #### 1 [id number] ####[facility] [address] [place] [address] Test Name IG PAP APTIMA H Invalid Interpretation Code [facility] Comment on above: Result Comment: Test code corrected. RS 07/12/2022 06:39:13 EDT Performed By: #### 1 [id number] ####[facility] [address] [place] [address] Physician Orderon 07-11-2022 Physician Order [id number] 26#1.00CD:127 Normal [facility] Reference Laboratory Testing Ordered By: Klever Peralta on 07-11-2022 Test Code 641260 Invalid Interpretation Code [facility] Test Name IG PAP APTIMA H Invalid Interpretation Code [facility] 022 Nursing Assessment [id number] 5#1.00CD:127 Normal [facility] Coding Summary.on 06-03-2022 Coding Summary. CD:[id number]:[id number] Gh0bWw+PGhlYWQ+PE1FV DAzT65ziBGyaP7OM1fMD T7AJOAELKELFF8YST7cj MS6HXgiB9AqdlEu ImtgmAYsMT20OPh7CXQ4 hVvfPNlyxE0toMGsA6e4 JgOmCO70vB65QTrrSXWt MgM5BiBsdclzxYEa A3cvKeZczYLgOgh+PHRh YmxlIHdpZHRoPScxMDAl LaQmuMiqUV5cQf5pPRXo LWNvbGxhcHNlOiBj i6keFDKvRCdvVB7raCwi I1ZeeBJ3VVAoo5z5Qg12 dHI+JDNqSTB2zBliEVwg s134FzNhh7kuHZL9 qUNpJTdvFTK0Q07je6R3 HANmWJUeLIL5wJI7hG1v kNpcnccdJ7ZwpAFiXaS2 YTI5fGYlhW0rgIxe fysxiP2yFfs+F87IHA9Y AAREYC0WNei8K9SrPmwg dHI+CE11OWQaDD12tRUu kWQwb2trzHa3ZqWr CYJqGCW7mYkqBQmzn4Sm UCKjA10jbTGlo6X6XDWi gBuvtDHvPoQxdGU4oH0c ZKszlhpdr1ssbcss Fconl8csjb38nI07O07b AAghEHKxRWU1EESwQNTm eYqzkr7yvQ1eKo0+IDxj e3mon9ybjHt1UbUa NJCacdZtvFttBSK4x1Us Li35V7KwyRcie6OhYwx4 yb51lEFwz6A7aUY7PWub VKWsdJ0uLKfxDrI1 NDLjJnUnoX81nMOoTBri Rl4rwUnywGsoNM6sSECr ffmmPPEfiH9lBIXwrKVk vIwgJH4zMVQbwjqp e275PzWcLJL5PHGzbQHc L8MfnO1sJbQjXZOjLONi Z4GzeMWlMZouS954LVyk MhV4UOFeucByI8Cm IYXaqRbaUfO7f1V1Kf8R m7ZcbwncLHP9AShkTEY9 JsLpUmGiFfP4R0PuBbw5 GXYrnFozCA5rS1Hm YCEdldbzojeksSN4FGRq NSFbqF02vWAeAYqvEk1d j4T1e260GSAhCVIepK84 Gy6umAnbQZEgxZLN bA1vmmvcx4wzgixxZtUg LKSqQPs3GXd4TMWokIdf JxHvQOF2MrC4GZN1nTMx aK1nbSjbyufixV8t Oyc+X13zsT9fOJS5JON8 ahmsRQMylhSoBR52GT15 U8TsYsrljRFoxCK+PGRp dyYelUjxJW6aDzQw j6axu7EbUYkuL4FcHROe MUgwSew1KWFeEKW4cPP5 uB4vPIPnLOtfm3O2iIV1 T5DtnvSpsl1zy1ug QRUySUuqA01ukOYat0T6 ZUTsjEN8QUInyOjyNjBg dG16Qdb+WAIxiYqni4Zy Oxoqn5inr8mulSb9 IjMwJSIgdmFsaWduPSJ0 s7ZrOe02J26bCFbtRVDa GTGyJXKxAQOnqHfxsr3v jC1hVj7+PGNvbCB3 dYP6kR9zMKCfTkT9RPnb N068GdHfnHXnHdxtb7wd l9wcyPa1TlOaSIOtxqTz zGhgHHC0c6XrLz36 P52dVNytDUTwCJYhBBPv UWVazFplqh8hbR0qIm0+ NR6be0hbsu95iF39jAT+ RHYsWQO4rAcmYBki RMDnsV4zCClcZvT3VMTz AqUozE99rQAxXAinRo8e wFyfuFaiYY5pMXDumhci b869QqEho1mzDPQj oSCvXFfyUHF4F66iy8P3 PWIoRWPuRTS4uVA3zR3y bGlnbjogbGVmdDsgdmVy wFwcNXijKFnhJ136 IHRvcDsnPlBhdGllbnQg NmBfSCp4N9OvFus0XCYo lQlsMD5fdQXmBKjrGk1i pOugxDnyXB6kQTXe degjy777KlImf0vrSPZa lFJdDAymJHK7E13tu4F7 GXJbBMLvZOJ7eKV5hO8g bGlnbjogbGVmdDsg agJqyTyyCExvNLbgT852 IHRvcDsnPkJpcnRoIERh bOU5EN25IV69xBPao3H8 qGE5X2MgPFMqdfsw grgjxAW3DUPaYNFolE97 Ql9faLqrLt7wPKYfYYK6 LUZbpSLrC7WhhK7zBlQm RWVfVPGsS1AkwKFr FBznG069AYmzNfE2UUHc rfVxZ1RsMGLpkCadJlU6 x6Q6Pk4IO6G1DA86UE14 uEHyi0B0oXE1X3Sf SFEmgrcratgiwZB7YDWj HLIkgZ93Mq0vmXmuDo3m IYIgQSN0ZGLnfOJxC3Ab yM4xAfVvJTYmLCXs F3GtdWWqWAepK489BMoi OqG7RCAhdiOyV2NjCRIf aNbeDwY7e0B4Ms2SDLp6 DF21FB41nFBkj9I5 tFR9I9MqZUXexgvewove uBX4KSEkGJEpgQ43Zy9e lRtcXq8wBDVbDFX4JJIh aYLdQ3QxyD5pNpMx TOPxFTGkP4ZwpDYiHFlu T296UVaxFnU1ZEVickYt G3TwXCTvtSibKcI4m6L9 Sm0SUISdPN32VKR3 vLI2WB54HO73L4PoHkiv dGFibGU+PHRhYmxlIHdp ZHRoPScxMDAlJyBzdHls EG6pXi7qWTDgEZZs fTuowVLzQkCul5aqWVKo ENwqTN7rsHskE2PuhNB4 YZQxd5t5Bb42O64vJ5He dXA+LYVmpPW4fSV3 cS8pZpPjOlU8HDqeK842 WdVjgTQlIpmdk9xis8ao fAu6HoU5JWBixlKiyJba TPY2d5RwWy75C26e IHdpZHRoPSIxNSUiIHZh eXsqyp3gyA7jMf0+PGNv gII4hFH9cA0pCfFaLrI7 MDjiY590SoUhrACz Ektcw2qqm5ofcTv2OuLq BDMqfkTqrXzoKDE1d0Ki Li30K1QelAtpe4LyIxm6 yl97aSHfh3K3aZP3 P6UrJYNkywbwlUXimCra AH6sFMFobxuwZJTzwP9u FBYzX4o1LlSqDsK7FCzq D7KxpnK0BUOffRHd MRpoVOH1A28sl2O5QVFn NZSaFCI5iZK4rH3qlDbl bjogbGVmdDsgdmVydGlj GHwsZSjnU249HNAh uFceCXMhlM3eHPIucRUf yJhoTF0pOYKuwxdlVpCS Vb5BBtoaT6GMHYJXSOLf TTwvdGQ+PHRkIHN0 aNteUYanLJAxtQ2oQQUv K7o1VuFeLdB7FKvvX0Yr YGXvjelqPw45vG2lBsAg EgH3WSgfY4NgltZ5 TVNdnJJoXYihXZU9H64j j1J7WRJxZWFdDZE7eLH7 uH4wmVlpmokoaKRhrXpn dmVydGljYWwtYWxp J131IRZahXobFvEnOhX7 XkL2LWz1P7HxBlv7ZTFw yUcaUW4vzMAkREbbNw0y lNkjdHgwFV7sMVEn gbeeWIUowK0vNXEypTYs jFswHM9sBYRwkbnio277 VvQhAUF3URWgpOPkM6Vn eY9nOgDeDGRaSHUd A0TonILiBDsfE849AQyz EwK8NQTespUnW9DaLHBr nYizFyV8h8I5Yb9iETNI ZWFyczwvdGQ+PHRk QEB4cSwjUOuvDGLpyQ8t JSAfG0w1GcDbBqY4EYqz I9LzFXZeyqhbXq09eX2b IdSdVyM3AYrpP7Ot kmI1QLFkwREdHCnxKRI8 H61qf3H4IKCmQPIpFCF0 tTW3jP2rcBpgmypihOVh dDsgdmVydGljYWwt GUosC766APCppAqvOuEl bWFsZTwvdGQ+PHRkIHN0 uWsyRPvmTCGmcU2fKSZo C6t5SbFdRtK3PBxv U1PrFCSsomowYy92vK7d TyXqXhI9NNenF2WpjcX9 EERewIRnKXbiYGI7J68j t6E8HSWbZOXvTON8 xZO5yM2seEgsqjwvgDCx dDsgdmVydGljYWwtYWxp A212AFQxnNbiHdyziHO8 aWVudDwvdGQ+PC90 th45S7HtNcoaDnr2MQVz MQD7qBS2fA5dFIGzDEab w0S7xVD2B4GwbeVfgn8q d3kcDKLyZUagH09e hZQoq5S5YIFimNX0WODl xLosTpRndR58Whx+PGNv wHhun5LmTsmqs1dit7mm nRr2KcDqBRXctbSm tZfcCLH1h8AqQo90K81a IHdpZHRoPSIzMCUiIHZh cByoza1ujP5yVb8+PGNv qSJ7pIY5gQ5zUaKx UlZ9HOaeP821HrXvqQOd Swtmv8usj1lxqYr0DcPg QCKpcwIonQhsQCG5q3Gd Ix19O5BkdTrcy6Xm Cmv8ut79zNHun8O6eGF0 O9XyAUBpbpxbfGSmrXbw TR3sGQKtureiBJAezF1p UGQmW8v3YiBjYhA4 TEysA0RbwgY1RKHthQRk KGNgwWHLfM4cxwgrt7gl firrCcQpLDUfDZp4KVc3 LWFsaWduOiBsZWZ0 MlS7LVF1dFLkgA9udPbx keiajR4qXxx+LGb4m3tn yCHhXQ4rlOZ8YY47IB28 jCRwy1Y3iBZ8W9Fa BMBsahgdlehcpSA6ETAb WXZscK45Uu5tqHiwHv7u FMAuMNS4ZSInaILeP3Jq mN5eMyRhSDUsLYKa Y8HveCXxBLojP002XWbo GpR0QEUwabRcG5OlRPMe cZjsXoI9o5Y3Vw2NHZ20 TL73DB98tFEwz0O5 tKH2T5UvBEJcuvzigczx lGA1YTDhMTRwlO99Lr2m mWtlMz6xFPMxIGQ1YHOt mLBvV7JohF9zLoFy ZXOfQURgZ5EnlBXfITzh M595YGxhKfZ3YMTjsxRl E2RjHNWhnCmkUbX3i1O0 Ig3JFh28VP18JV13 iBAnk8U8aWI6C3BjOSOd bxwxughzxOD9ZLIpRTEn gT73Ya5vfGfjNl6uSDPs HFZ3QDTieOJeO0Nk hM9gGsZyWCQmHSDlA7Oa dAVfDProE789IYgaEqG3 UCHqjyTrT9ArGZUnuRxh LsH9p2N2Iw5NBEpw ysx5M7QpLorbkNP+PC90 IBWzFR69dCFvhTMdh4qt rGa2MmUcAXScFZM1mQxo HPvtt0WbIBDlZ32a bGFw (more content not included)... Normal [facility] Nursing Assessmenton 022 Nursing Assessment [id number] 5#1.00CD:127 Normal [facility] Delivery Summaryon 2 Delivery Summary DATE OF [...] the room. Devin Pereira M.D. Dictated: 05/31/2022 [id number] Transcribed: 05/31/2022 Normal [facility] Comment on above: Result Comment: Elec tronically Signed By: Kelli DEMPSEY, Devin Collier\.br\Date and Time Signed: 06/02/22 11:12 EDT CBC w/Indiceson 05-31-2022 Erythrocyte distribution width (RBC) [Ratio] 13.3 % Normal 10.9-14.2 [facility] Comment on above: Performed By: #### 2 [id number] ####[facility] [address] [place] [address] Hematocrit (Bld) [Volume fraction] 29.4 % Low 34.0-46.0 [facility] Comment on above: Performed By: #### 2 016589 ####[facility] [address] [place] [address] Hemoglobin (Bld) [Mass/Vol] 10.3 g/dL Low 12.0-16.0 [facility] Comment on above: Performed By: #### 2 876032 ####[facility] [address] [place] [address] MCH (RBC) [Entitic mass] 29.0 pg Normal 27.0-34.0 [facility] Comment on above: Performed By: #### 2 653204 ####[facility] [address] [place] [address] MCHC (RBC) [Mass/Vol] 34.9 g/dL Normal 31.4-36.0 [facility] Comment on above: Performed By: #### 2 675223 ####[address] [address] MCV (RBC) [Entitic vol] 83.1 fL Normal 80.0-100.0 [facility] Comment on above: Performed By: #### 2 378864 ####[address] [address] Platelet mean volume (Bld) [Entitic vol] 9.5 fL Normal 6.4-10.8 [facility] Comment on above: Performed By: #### 2 406541 ####[address] [address] Platelets (Bld) [#/Vol] 192.0 E9/L Normal 150.0-500.0 [facility] Comment on above: Performed By: #### 2 387586 ####[address] [address] RBC (Bld) [#/Vol] 3.5 E12/L Low 4.3-5.9 [facility] Comment on above: Performed By: #### 2 097944 ####[address] [address] WBC corrected for nucl RBC Auto (Bld) [#/Vol] 9.4 E9/L Normal 4.0-11.0 [facility] Comment on above: Performed By: #### 2 376377 ####[address] [address] Discharge Instructionson Discharge Instructions [id number] 0#1.00CD:127 Normal [facility] HEMATOLOGYOrdered By: Swathi Weir on 05-31-2022 Erythrocyte distribution width (RBC) [Ratio] 13.3 % Normal 10.9 - 14.2 % [facility] HemeAutoSS Hematocrit (Bld) [Volume fraction] 29.4 % [...] Inpatient Clinical Summaryon 05-31-2022 Inpatient Clinical Summary [address] [address] Clinical Summary Person Information Name: ADONAY SAEZ [facility] Age: 26 Years : 1995 Sex: Female PCP: Shanna Daniel DO Marital Status: Single Phone: [phone] Race: White Ethnicity: Non- or Language: Setswana Visit Id: Visit Reason: WATER BROKE Speciality: Acuity: 1 PP Enc Type: Inpatient Med Service: Obstetrics Arrival: 05/29/2022 07:02:32 Discharge: 05/31/2022 15:30:00 Dispo Type: Home (Routine DC) Address: [address] [place] [address] [id number] Provider Notes: Diagnosis: (spontaneous vaginal delivery); Shoulder [...] Follow up: With: Address: When: Dr. Pereira [phone] Within 6 weeks Comments: Call for any problems. Support Group first Friday of the at 11am Call Dr if fever>100.5 F, heavy bleeding With: Address: When: Services [phone] 06/03/2022 2:00 PM Patient Education Information: Normal [facility] Inpatient Patient Summaryon 05-31-2022 Inpatient Patient Summary [place] [address] Patient Discharge Instructions PERSON INFORMATION Name: NADJA KAYLENEROSANNA Patel Date of : 1995 Current Date: 05/31/2022 15:48:13 PHYSICIANS Admitting Physician: Devin Pereira MD Primary Care Physician: Shanna Daniel DO PCP Comment: Discharge Diagnosis: (spontaneous vaginal delivery); Shoulder (girdle) dystocia during labor and deliver, delivered Condition at Discharge: Stable NADJA ADONAY Jorge has been given the following list of [...] CALL 911 Home Treatment: Devices/Equipment: Special Services: [facility] Additional Instructions: Physician to provide the following pending test results: None Follow up: With: Address: When: Dr. Pereira [phone] Within 6 weeks Comments: Call for any problems. Support Group first Friday of the month at 11am Call Dr if fever>100.5 F, heavy bleeding With: Address: When: Services [phone] 06/03/2022 2:00 PM In the event that this physician does not participate in your insurance network, please consult with your insurance company to find a nearby participating provider. Comment: NADJA Jain CAMIELLE M, have received the attached patient education materials/instructio ns and have verbalized understanding. Patient Signature Date Clinican/Nurse Signature Date MEDICATION LIST New Medications [facility], [address] [place], [place] [id number], [phone] ibuprofen (ibuprofen 600 mg Tab) 1 Tablets [...] to serve you. Thank you for choosing [facility] Normal [facility] Insurance Correspondenceon 0 05-31-2022 Insurance Correspondence [id number] #1.00CD:127 Normal [facility] Coding Summary.on 05-30-2022 Coding Summary. CD:[id number] Gh0bWw+PGhlYWQ+PE1FV PWwV70adQQcoQ2ZC2wCK W1KVZPUPYHRPU7LNA1sm CQ5LPvhI5DgxmUk AdyycJZwZK14CSa8VRO2 xTfxIMxsdM0msHQoB1b4 ScAnLI39hD15BZlcYTIb UnQ6MqZysqfjgTBg K6lwEbEzlTErKjd+PHRh YmxlIHdpZHRoPScxMDAl TjFafDzzWV3wRp5dOXUq LWNvbGxhcHNlOiBj g6weDJVzMMuiMK1fcIgd E7DzwKW2QAUrn6b1Jm07 dHI+KDUpXMN1qZskGKfd b226VuYrd0azCCG2 hOQzGMhwQDM0K01zg4O2 WHThYZPoRDO4rEH9uG1c zPvmltosU2QskNJnAsN9 THK4iQIwdC6ifDpo rwfknH6oRsx+V18EQX4A DTQOSJ1HXwb3R9JpYsfy dHI+SX83POWnHB08sFQn pQYia4krwIo4YxAb DPMjGKP4hKpfHRnba3Bq PKPgK79frABmx9Y2AKAx oEszvGQhFcMmpWB4mY4h HGulqobzo3aazewb Qkhfc5zxdg40sU62D53q LWaoWKDaZAC4TZKmHKZz nKmqih4klH5jYs9+IDxj j8ohv0mmiPf2YhRd ZXKlbkNtxWzfSHI7c6Wa Pu00X6EznRgiw2JkSli9 zf28oBBgy2N3oLC8NFku JQAqcX8hASebBhH3 WKJzWoAdkI43sTNvCZho Wh1iiLmtjUyrAP6cQANw rjazTODelS9wVGZjyVCk gBjcNM9bMTCuxfeu e916EqIhUSI9WNRkhHRo G1HtfT9gBuKhSTCmPSYc E3KgyKOwFVjpF533OKlk EkL3EPLhxlArQ2Yu UPHqzEmsMiV9u4R7Is3G y0CpkjatSAF8RDfiPYM0 CaS5SvBzLnP0A2JiDgr0 RBMbjMnmRW0dV8Mm IJXsltzbazjdhYB6GNKx KGBguQ33hFKnHFmrYi4s z6A2r703TXQvQJDhjP86 Ah0huJzwRKSfzIKP wS0eycsqn7okhaduMoQt ZEWdIWu7VPy0KSXfgSes RuOtBML6VvW1GJF1fEFu pJ9mnUvyqylwlK2f Oyc+D91pcS5qAAG1RYP3 agvpCIYexhRkXY75PT17 Y2YzJlaalYXppWO+PGRp wxHojDdjZC9vMdWh v1xlf5BrPTvaR0VbFQYd TDpdJjl6XHTpDIN3vOX9 uG8wXFVeSQzwm2H9iLB5 V1NnsqHhiz3ka6zo LDFkPPnqN76zcJSgg9D5 GZQxxCC9VMClnZpuWpBm eZ82Tki+CZAwkCboh4Dv Njlom8ruc7exbXg0 IjMwJSIgdmFsaWduPSJ0 v8ZgKh87H88sQRtgGHGu DXFhANUzIPXfsCnwbq5r bL0wYt6+PGNvbCB3 xVG3qM9eELLhYnN7FCjw Q857IvMfuOTfFyocm3iv m3bkmLg1DnVoBLQuxsBa bMwgPUS2y8PtZi71 K74cRUusMAJaNOOqRVIw NZZnlYbsox6avB2oBb5+ BR7jf2azch14bO35rCG+ QSMxQVS1nGxtXUho WCVosU5uULewUeO4LLYq GsXldX38mYBhJLqfWz5b hNuprFjmPG0nZPPthlib h752WrDye4bkMSMa jHFzYFbgNPA2P35oy9E4 JIGxYWEnYUG0bNC3kG8x bGlnbjogbGVmdDsgdmVy vRgcRHmfEDztQ572 IHRvcDsnPlBhdGllbnQg UfJyUGe4R4WkOqn5ERIh tMsaNK4exKFnWWwqDx8m gRvcnVoxLJ7tDGSb mqzsx429FnGje6voEAAb xSYfOHqnVEF6Y53wq3Z5 XAZiNAXoGJR8cFV3lB7t bGlnbjogbGVmdDsg yrCgqIogIIyrWMpvF208 IHRvcDsnPkJpcnRoIERh dGO3WL42PI30eOCtw0P8 uND5O9YpYHGigwpo szjkiLT2ZMFxFCOvpG53 Kw6kbKyqLw1fUPHcPJG9 ZPWzfXQqS8FwcV9zTaSj KXJbNEHxI5FykMRx VUmvZ428LZygUbE9QSAp toAdI9DnAIDefMuzQnH2 o6C3Yi1TN1R9DM93SU40 eEPyx3L1yIB2S3Uo QOHnuwwacliylPP8YMYs IBUxjQ20Ht2tvTguOq2k KQCbKWR5ZHHjuHOyS2Jr pH1mKkWlFCNlKFAp N1PijRYwUNzuY737MOsk WmY1WFGhcpPeU3ZaOLPb fPcrOwM5c1H6Lt7CHTd6 ZR89QO55aKQcc5O7 sKO0K8DhZGDuaabeedux zYW8AAIbZCUwpX52Ct7a yDcbBh3jOENcRBP0SZQo qLTdX1RrwR6tWvLs MYUqUEVwQ2SqzGLdEQqs K108TEwxRbM0WZWmynZw T6EjVOYcgDhmSiA2b8L1 Jw0FAUShOG93ICM2 lAI7RV81YS08D6UoPptg dGFibGU+PHRhYmxlIHdp ZHRoPScxMDAlJyBzdHls PB9jNk6sXEIfRLXb eIonhNUsPbBpf5anVWYi CDkjGK4ilPpgI0VbeEY4 CNBxk9n4Bl99U25tN8Gu dXA+MNAmhGO2wUK3 kX8hGbBxBvA2RCnvB152 EmSymEQrQjivs3hcn9os qEv3GmE2QSCzkqMcyWvw LKA9q4GoVq40A62l IHdpZHRoPSIxNSUiIHZh kPqpjz2icM1gMc0+PGNv wKZ7rOD4oM0dBuYfEaG3 CLeiV233LhVgkEUg Xsucg4ozz0fpyEi2SaLe ZWTktuFrhUnvELE5q4Nj Qx11J6FrsKsop4XnLms3 mf85jKVtk7K0tMU8 H7EyTWOutgnmqJFjaVwo HU3wRNEhveawVIKcmD2v RCSxF4k9HuInXoP8EXei A2QxxbI3XCSemBWi XTpvASG3R53fu4X7LCZa BXSdTGH7lWM1bB2wdNml bjogbGVmdDsgdmVydGlj FFpuRUmvS220EDBc qYnpHMXnpH0bJGLshDOa gEclAE2nNEFtpkxwFeJY Id6YVyziD2IOEFFDTXSs TTwvdGQ+PHRkIHN0 wUecQGbgSBQjeV8nNUXv G9r2PuSeQgX0CIgfR4Bq BTNvzqhvEo17yT1sXfSk OrZ6WCqnK5DmnxY0 AJYqsJRfOWbzZSG9R22o m7X9UGWuABDtOJB8rFT3 fB9xdTcmdqfbgCXleFwz dmVydGljYWwtYWxp A370MFCwmWjqBjXzFmN7 VkX3PPu8Y7DcYdx6HIUj jFgyYL6cyMYmUZxtVh1f zOevvCxfRM5lHKAp ussbAEQivK4tJUJxaQVx xRxnEZ5mIYFzxgtzi757 ItTeVJT6BNJcwYKwA7Xa aX0mMyGjHKFvDJNu L8WyoFBzULloI258ZCwm QfB9XSOrhsAuL2OvDHUw bTqnTkQ5e9J1Lm7nFZFY ZWFyczwvdGQ+PHRk BXI9eHodVEzbRYVowG9a OAUnZ6b4JmMjWuF9DIdh N9OeHKJunjuvUr54bF5f NzYmUnW2ATfbK2Cg lvG9HNXmeSOsCQqdYYV4 T69ek8U7LMNvYRLmMCC3 fVJ8vP0yqLbgdkspsJBv dDsgdmVydGljYWwt VNfuT900GXJjeJiwWuYn bWFsZTwvdGQ+PHRkIHN0 rYdaEHqqKOGvkH5uURJa J9x0TiLqLkF6ZPey Q7VjSGAuxsguPk14vI4q FgClWkL8JQkxM9SoimP4 JRIkjPKxLAgnTMS0L00c m3E2CMMhTERxFNB5 nTC1oR0vgBxznncxlDId dDsgdmVydGljYWwtYWxp J769ZKBrdGpeOi5TDTWo aWFnZTwvdGQ+PC90 em52D7PmFwtcSyp6PFVo HEN3uKL4rX1iPDMdXZpx f7T2lYZ5Z2QahnDbco4e t2ubWEXmUIjmA21z vWOhl6A0BRXdvIM2PBRk bXafOeGvhI61Uwz+PGNv zAdaq2VfZxtme8jwm5gu hCh3ChUwYBSyhnXf lVfbAXF5j8SuCi33N18o IHdpZHRoPSIzMCUiIHZh iHkrby0iyD0tTs5+PGNv uFF0xZV3uN9oJdYe EmY2KOreQ261QnMhrGOh Mthly2ngo3pdsCm4EiMk ODOyahEhwLicPDW3j4Nw Fk46Z2QujHenz3Iy Kkl1pv27jWOrk3P1oQM0 P9VwCCGegiczvINjtUfc EY3tMYOmcvlsYNLxwX4k TKTdE5w8QyEfCnY3 BQrmP5RathR4VEQlhLIi CANocXADeN8myintz5ar hxrwGjUxKNYaEPj2SXl5 LWFsaWduOiBsZWZ0 LeG8KPF1sJLtdX3ygLir iwtatC5jFgh+QTf9w4ad vEPcMT2xzHX6ID92TE29 jWAcy8F4tCU5L6Tb XQBsamtxprtwwWQ7QJZk SWSchD37Gq0poEpbCz4j GDMjVCK3BYVosUXtJ4Fk yA7bNfBtROCqIMEg Y9ShnEVdJVvgG592NKqi NuW0QORzbcYgS7TcIJLs xZrmUeH6t8D9Xy6EMV71 WP22HG81yDKqa5C0 rMN8S9EpKYHvbpszrwqp nGY6KLWhCWBivT79Qk4k nVjcAt4hJUKbKBS3OQUh nRRwD9InpH3eMnFg BONbCWRxE4UctWJxHBlb S931SQksStD6DXNcjjKt Z3IwKYMmjUjxMyT6e2S0 Ud8WDt20IR10LB01 rEPga3S6wAE3I7BtPEBb dfiutskngMY2ZEHmOCWa pW28Wd6eyQosJl0hHGLi LRJ9FLNmeSLfE4Vi wL2uNaExFEYpVKQlD4Hs vABhPQqoT792HTpgWfR1 DYXtwdWlF6IyTUTybQkf GeS3i9H6Mg5CUSnw ctj6S2NbFoazbGQ+PC90 LZOrJO97iYBftXVcj9iw tSp0QpOtRZHyAJM5fZng PWoak7CeEMYbG36h bGFw (more content not included)... Normal [facility] ABO/Rhon 05-29-2022 ABO/Rh Positive Invalid Interpretation Code [facility] Comment on above: Performed By: #### 1 [id number], [id number], [id number], [id number] ####[facility] [address] [place] [address] ABO/Rh History Checkon 07-06 -2022 ABO/Rh History Check Verified Hx Blood Type Normal [facility] Comment on above: Performed By: #### 1 [id number], [id number], [id number], [id number] ####[facility] [address] [place] [address] ABSCon 05-29-2022 ABSC Gel Interp Negative Normal [facility] Comment on above: Performed By: #### 1 [id number], [id number], [id number], [id number] ####[facility] [address] [place] [address] BLOOD BANKOrdered By: Alexandra villaseñor on 05-29-2022 ABO/Rh Interp Positive Invalid Interpretation Code [facility] BB Subsection ABSC Gel Interp Negative (05/29/22 7:39 AM) Normal [facility] BB Subsection Blood Bank ID#on 05-29-2022 BBID# [id number] Invalid Interpretation Code [facility] Comment on above: Performed By: #### 1 [id number], [id number], [id number], [id number] ####[facility] [address] [place] [address] CBC w/Indiceson 05-29-2022 Erythrocyte distribution width (RBC) [Ratio] 13.1 % Normal 10.9-14.2 [facility] Comment on above: Performed By: #### 2 573298 ####[address] [address] Hematocrit (Bld) [Volume fraction] 33.1 % Low 34.0-46.0 [facility] Comment on above: Performed By: #### 2 085704 ####[place] [address] [place] [address] Hemoglobin (Bld) [Mass/Vol] 11.4 g/dL Low 12.0-16.0 [facility] Comment on above: Performed By: #### 2 868279 ####[facility] [address] [place] [address] MCH (RBC) [Entitic mass] 28.5 pg Normal 27.0-34.0 [facility] Comment on above: Performed By: #### 2 521793 ####[address] [address] MCHC (RBC) [Mass/Vol] 34.4 g/dL Normal 31.4-36.0 [facility] Comment on above: Performed By: #### 2 405353 ####[address] [address] MCV (RBC) [Entitic vol] 82.8 fL Normal 80.0-100.0 [facility] Comment on above: Performed By: #### 2 327957 ####[address] [address] Platelet mean volume (Bld) [Entitic vol] 9.7 fL Normal 6.4-10.8 [facility] Comment on above: Performed By: #### 2 940658 ####[address] [address] Platelets (Bld) [#/Vol] 215.0 E9/L Normal 150.0-500.0 [facility] Comment on above: Performed By: #### 2 431703 ####[address] [address] RBC (Bld) [#/Vol] 4.0 E12/L Low 4.3-5.9 [facility] Comment on above: Performed By: #### 2 167997 ####[address] [address] WBC corrected for nucl RBC Auto (Bld) [#/Vol] 7.0 E9/L Normal 4.0-11.0 [facility] Comment on above: Performed By: #### 2 887782 ####[address] [address] Consenton 05-29-2022 Consent [id number]# 1.00CD:127 Normal [facility] Consent for Procedure/Surger yon 05-29-2022 Consent for Procedure/Surgery [id number]#1.00CD:127 Normal [facility] Consent for Treatmenton Consent for Treatment [id number] #1.00CD:127 Normal [facility] Discharge Instructionson Discharge Instructions [id number]# 1.00CD:127 Normal [facility] HEMATOLOGYOrdered By: Alexandra villaseñor on 05-29-2022 Erythrocyte distribution width (RBC) [Ratio] 13.1 % Normal 10.9 - 14.2 % [facility] Hematocrit (Bld) [Volume fraction] 33.1 % [...] - 11.0 E9/L [facility]eAutoSS Recordson Records [id number]# 1.00CD:127 Normal [facility] Progress Note-Physicianon Progress Note-Physician Patient: ADONAY SAEZ Age: 26 years Sex: Female : 1995 Associated Diagnoses: None Author: Jose Miguel Garcia Jr., DO Postoperative Information Post Operative Note: Day 2. Anesthetic utilized: Regional: Epidural. Health Status Allergies: Allergic Reactions (Selected) No Known Allergies Problem list: All Problems / SNOMED CT 783593564 / Confirmed Resolved: Anxiety / SNOMED CT 46898501 Resolved: Depression / SNOMED CT 622263162 Physical Examination General: Alert and oriented, No acute distress. Neurologic: Normal sensory, Normal motor function, No focal deficits. Review / Management Condition: Stable. Assessment Anesthetic outcome No post-epidural complications noted.. Plan Transfer/ Discharge: Condition stable. Normal [facility] Comment on above: Result Comment: Elec tronically Signed By: Jose Miguel Garcia Jr., DO\.br\Date and Time Signed: 05/29/22 17:36 EDT Progress Note-Physician Patient: ADONAY SAEZ Age: 26 years Sex: Female : 1995 Associated Diagnoses: None Author: Jose Miguel Garcia Jr., DO Chief Complaint Intrauterine Health Status Allergies: Allergic Reactions (All) No Known Allergies Current medications.Problem list: All Problems / SNOMED CT 083676134 / Confirmed Resolved: Anxiety / SNOMED CT 38096736 Resolved: Depression / SNOMED CT 514821207 Review of Systems Respiratory: Negative. Cardiovascular: Negative. [...] The PCEA was started at 1728. Normal [facility] Comment on above: Result Comment: Elec tronically Signed By: Jose Miguel Garcia Jr., DO\.suresh\Date and Time Signed: 05/29/22 17:36 EDT UA With Cult Reflexon 2021 Epithelial cells.squamous LM.HPF (Urine sed) [#/Area] 0-2 Normal 0-2 [facility] Comment on above: Order Comment: Urina ry Catheter Insertion triggered Urinalysis With Culture Reflex order by discern. Performed By: #### 1 [id number] ####[facility] [address] [place] [address] [place].plasma/Lithiu m.RBC (Bld) [Mass ratio] 0-3 Normal 0-3 [facility] Comment on above: Order Comment: Urina ry Catheter Insertion triggered Urinalysis With Culture Reflex order by discern. Performed By: #### 1 [id number] ####[facility] [address] [place] [address] WBC LM.HPF (Urine sed) [#/Area] 0-5 Normal 0-5 [facility] Comment on above: Order Comment: Urina ry Catheter Insertion triggered Urinalysis With Culture Reflex order by discern. Performed By: #### 1 7693878 ####[address] [address] Bilirubin Ql (U) Negative Normal Negative [facility] Comment on above: Order Comment: Urina ry Catheter Insertion triggered Urinalysis With Culture Reflex order by discern. Performed By: #### 1 7074039 ####[place] [address] Clarity (U) CLEAR Normal Clear [facility] Comment on above: Order Comment: Urina ry Catheter Insertion triggered Urinalysis With Culture Reflex order by discern. Performed By: #### 1 4991944 ####[address] [address] Color (U) YELLOW Normal Yellow [facility] Comment on above: Order Comment: Urina ry Catheter Insertion triggered Urinalysis With Culture Reflex order by discern. Performed By: #### 1 6194668 ####[address] [address] Glucose Test strip (U) [Mass/Vol] Negative Normal Negative [facility] Comment on above: Order Comment: Urina ry Catheter Insertion triggered Urinalysis With Culture Reflex order by discern. Performed By: #### 1 1397423 ####[address] [address] Hemoglobin Ql (U) Negative Normal Negative [facility] Comment on above: Order Comment: Urina ry Catheter Insertion triggered Urinalysis With Culture Reflex order by discern. Performed By: #### 1 3660603 ####[facility] [address] [place] [address] Ketones (U) [Mass/Vol] TRACE Invalid Interpretation Code Negative [facility] Comment on above: Order Comment: Urina ry Catheter Insertion triggered Urinalysis With Culture Reflex order by discern. Performed By: #### 1 7862396 ####[address] [address] Nitrite Ql (U) Negative Normal Negative [facility] Comment on above: Order Comment: Urina ry Catheter Insertion triggered Urinalysis With Culture Reflex order by discern. Performed By: #### 1 1488622 ####[address] [address] pH (U) 6.5 [pH] Invalid Interpretation Code 5.0-9.0 [facility] Comment on above: Order Comment: Urina ry Catheter Insertion triggered Urinalysis With Culture Reflex order by discern. Performed By: #### 1 4282809 ####[address] [address] Protein (U) [Mass/Vol] Negative Normal Negative [facility] Comment on above: Order Comment: Urina ry Catheter Insertion triggered Urinalysis With Culture Reflex order by discern. Performed By: #### 1 0784293 ####[address] [address] Specific gravity (U) [Rel density] <=1.005 Invalid Interpretation Code 1.005-1.030 [facility] Comment on above: Order Comment: Urina ry Catheter Insertion triggered Urinalysis With Culture Reflex order by discern. Performed By: #### 1 2771765 ####[address] [address] Type of Urine collection method Clean Catch Normal [facility] Comment on above: Order Comment: Urina ry Catheter Insertion triggered Urinalysis With Culture Reflex order by discern. Performed By: #### 1 [id number] ####[address] [address] Urobilinogen Qn (U) 0.2 {Quinton'U}/dL Normal 0.0-1.0 [facility] Comment on above: Order Comment: Urina ry Catheter Insertion triggered Urinalysis With Culture Reflex order by discern. Performed By: #### 1 [id number] ####[facility] [id number] [place] [address] WBC Auto Ql (U) Negative Normal Negative [facility] Comment on above: Order Comment: Urina ry Catheter Insertion triggered Urinalysis With Culture Reflex order by discern. Performed By: #### 1 [id number] ####[facility] [address] [place] [address] URINALYSISOrdered By: Paulina Dobbins on 05-29-2022 Bilirubin [...] Interpretation Code Negative [facility] UA Auto SS [place].plasma/Lithiu m.RBC (Bld) [Mass ratio] 0-3 /HPF Normal [...] PM) Invalid Interpretation Code 1.005 - 1.030 [facility] UA Auto SS UA Spec Desc Clean Catch (05/29/22 6:35 PM) Normal [facility] UA Auto SS Urobilinogen Qn (U) 0.0812204 {[place]inton'U}/dL Normal 0.0 - 1.0 EU/dL [facility] UA Auto SS WBC Auto Ql (U) Negative (05/29/22 6:35 PM) Normal Negative [facility] UA Auto SS WBC LM.HPF (Urine sed) [#/Area] 0-5 /HPF Normal 0-5/HPF [facility] UA Auto SS Vaccinationson 05-29-2022 Vaccinations [id number]# 1.00CD:127 Normal [facility] Consent for Treatmenton Consent for Treatment [id number] #1.00CD:127 Normal [facility] Discharge Instructionson Discharge Instructions [id number] 5#1.00CD:127 Normal [facility] Inpatient Clinical Summaryon 05-28-2022 Inpatient Clinical Summary [address] [address] Clinical Summary Person Information Name: ADONAY SAEZ [facility] Age: 26 Years : 1995 Sex: Female PCP: Shanna Daniel DO Marital Status: Single Race: White Ethnicity: Non- or Language: Setswana Visit Id: Visit Reason: CYTOTEC Speciality: Acuity: Enc Type: OB Triage Med Service: Obstetrics Arrival: 05/28/2022 08:35:16 Discharge: 05/28/2022 17:00:00 Dispo Type: Home (Routine DC) Address: [address] [place] [address] [id number] Provider Notes: Diagnosis: Problems Active (08/25/2021) Smoking [...] Follow up: With: Address: When: Devin Pereira [address] [place], [place] [id number] [facility] (1) 05/29/2022 5:00 PM Comments: Call for any problems. Return for contractions closer, longer, and harder. Return for decreased movement. Return if ruptured membranes or vaginal bleeding. Patient Education Information: Normal [facility] Inpatient Patient Summaryon 05-28-2022 Inpatient Patient Summary [address] [address] Patient Discharge Instructions PERSON INFORMATION [...] None Follow up: With: Address: When: Devin Kelli Karis [address], [place] [address], [place] [address] [facility] (1) 05/29/2022 5:00 PM Comments: Call for [...] to serve you. Thank you for choosing [facility] Normal [facility] Insurance Correspondence Off 05-28-2022 Insurance Correspondence Office [id number] 1#1.00CD:127 Normal [facility] Coding Summary.on 05-22-2022 Coding Summary. CD:[id number] [id number] SG5ZIauI1DpstJj MdwflMSvNX80NRr7YPX0 wIzmDQbbcP8adSEqK9n0 TsFpMX66vX74BNvvCAHo SeF5RxSximzmmNVc M1xtCzEjaKCzOnv+PHRh YmxlIHdpZHRoPScxMDAl EnRgzEjqSH0wYo7yAQUr LWNvbGxhcHNlOiBj j9inODZyRKkgLU7ayGtv S1SxxOX7RXPyw4x9Il06 dHI+ZBFoWAZ8xIpsPWuz z962IyGjt4eiVLT9 kJBqFYwcZBC6V52zu3Z6 GMFqHAMnKAL9kLP9qW0x gMzlgnvzP1FqhLYfRwR4 GFE0vGQepU2zfZdp pppbhW7oTkm+F83QYT4Z WUBOZP2MEjo6A2IqTeaf dHI+YI71KIYqCH90uQBw aQZuj1ymsNh2QyXr ZNXiPIX4cCqtNKypm0Zk JSQuZ06ihHJcc9S6ODGi bXiqkDEkVgUotPD2aY3l LLxcdjxat4bwrail Ffgyd1bpve54rO59X54c PItoORUkBYK9VFPjZIUp sOnwty7udI3mIe6+IDxj s0umr7ddeCj3UxXp FREcryZgcNdmDAS9u6Us Az18T7SubXvtz1SwSrg6 ok77tXVdc7V3zNE1QMyi MTZmqF6pJMixBoY0 NCKuOxWpdJ67aSCxWYrl Uw8ggNvaqXqvLD2yECNp ljkxPKJqwG4gHQXbbTVe kNcqRH2eTZOdegbu j529QgEtLFQ5XSBftSHu M5ZltJ0lXbFpEHZtOHNl D0AboUPuHFbxC096MMzu MfZ2BXDifrYkL6Jp UOBnfNsdHhY4k2W3Rg1A k9LamlfuQKJ0XBzoZPO0 OyB2GxZwQeH3Q3SkWoe2 FFEucDfhQD6lX2Nz HPIgcdgvbvjcbWP5MGRs IUQlxS51bTErRAioKx1c r8J3s314JJMsVIAhkI64 Jz7uyBglIZOazWAB aZ7zuhvjj5lynnqfKfIf YAFbDOh1JNz8OGDboFke EmVfOJD2GjZ3VSP2wMCw pS8jqYxxqlpoyL3a Oyc+O20kcX3yGJJ6GNB1 guduREEinbZtDC53RK42 U9HjJviurGOtdZT+PGRp pyHiyDdiTQ0rAkHh t0feh3CpINpjE8VhZGWm JTfdXev5QLSyZES3gKA6 kZ1jJQJpHJrer8L2rEU7 B8DvavKehu5dy7iz JUWePCasH38nzRFnc5T3 WXPlbZP5JYIdmGkrUgHh tL11Qbp+FLBffPvqj8Vy Hufop3qsm2xxhYh4 IjMwJSIgdmFsaWduPSJ0 e7WhJs65J65wUUdoZWTp WBSvLXAwPYRbpWfdkx7r xC0sXs2+PGNvbCB3 zAA7kC3mINTmTuB0NTcv G065ZjHduWBvEygia2dh p5hsyBs3FgZoSYHtbvHl rSzsCFH0h5UsCy65 Z73jIClcNKRnPQAhXNIu IMSlkFvvjl0ajI6hJt7+ WM3et9mmoo51hV18oZB+ WJQgZRS3tUgmMRdn HCTpeT4jRKirQpB0ZSKr KbCawX11jCOcYDlkLf0p aZccwHjqZM5lUQAwizyo y195ZmUcz6uiZUHw wOYwJLfhDHU3D13qp1T5 VVCuHPIoTGI3zQL6oI3u bGlnbjogbGVmdDsgdmVy zQqdXYnuXSzkH326 IHRvcDsnPlBhdGllbnQg FePsUJn3U1ZbLlf9OFTl tCzvRG7lsRPxMZchXg9d uOhipRjrKC1hCDWk cpggm130PiZms4iyIQYp zHSeNSblWNL8Z59wp9W4 XAGeVCDvORD6cRM1vB0f bGlnbjogbGVmdDsg juGcjWpzZLiuKPelJ088 IHRvcDsnPkJpcnRoIERh wRJ8NQ26IN13jKFnl7P3 oRX4Z8WcGODbqnsi ygvovBF4TWWpQYZwtP09 Nm8zgLsnTz3qJVEpQPG2 YNGrfTDxL6YumB3qNcQq EWBsHUCnE2KkpKBc TMvlA699OEtrTjK6NXFa zoRpW4NcWAUruTsqOzA9 f8H6Ws9HF7S8QQ20OS50 kNWrf1S1lJJ5Z9Gf XZPugonoamwgoGB0ECBh IWVkbF71Zn1tjMugHf1f JQKgBDL8GVHykNOgI0Rb xO1kAjElGYCeKPNi T5ZfnGVoMVujL855OLnu EkE3DKDtdtUqS7DtWLFx rZyzVrM2d0F8Wl8DHLr1 TN11UM43rQRzi2O2 bYH7T3UyRMTnlwlhffjq qHU5RAQkJHAxtU50Ur7q gXecOt5uJQTrWBD1LXTl dKItW8ZekK4hVyZq IDZfNKUyA3EwsDDlYAng D119BFaxAaS5ZUMlutNo I3MpEYSokFugFcZ1f3Q3 Mp5NDSDnUP72PFU4 pGD0BZ07KM01K9KsKcqp dGFibGU+PHRhYmxlIHdp ZHRoPScxMDAlJyBzdHls JO7iGy8vUXSpYUVn aSwmuFCkKvKjn0rlJCEg DCqeBI5wcDbvS8WblRQ2 QPFht2s8Vq87C79oC1Gb dXA+HJLvmCX8dLO0 jV0wQiAbPbS2YJbcN136 RsVpxAAtStnak4cjr7cw rXl7EzP7HLZbtuIasHsy YNN5j6RdDx33I83t IHdpZHRoPSIxNSUiIHZh iAvkzr3dyJ3sUk7+PGNv rHY6cNO9rC3kSyJfTxA5 FWfsU966XhKzpWXv Qtqfb6tcf4vpqVx1WyPl HVXbknEmbLjmTYS8m0Aq Zh42F6LdkLdnj2QsCvv1 wt12eRJma6G9vWR0 F2OvXZNlosknfNTnqZig KG3kKHHwhwfjTKMfcF9y QITlF1o9KdWlXlE3QGpy G5ZwwqI7WKWmpLKd ZJfrMBH1L02xp1T5XFVp AJKoFMU8dDG5kA7mdBla bjogbGVmdDsgdmVydGlj ZRmmKEvqE747VVHk kVqmSLEtiX7xEXCvvYMp dAlqRA7sFWPyablyZyEM Kh1XJhsxB9NTKTWPNKIs TTwvdGQ+PHRkIHN0 aEjfYTaxWFUvdQ7pYAHh T6o6ZpOlYoV4PKgrQ5Fw JKFhytdkNs73oS5sWgKi SxI5MTrnH7BzwqH6 QFFxaIRvBMyxECH8M20x h0Y0KSBqNNZxNUF2sNR6 yC7myPdlezbbgSDnoDww dmVydGljYWwtYWxp Y042YKKxrMzeTyFhQtV7 MxD8PMr2G1OqTfa4HYXt iFrrWN6alFYgLMonHn8o hQjbyDocKC9mAFJn hnijPPJjcB9eCTOabVVi pSrqZL7mOSGgdeepz775 KlAvHZU5KXIicTBoF6Vf fJ9dVsWzUQTvRYUy Z2BsfFUhEKvdV882RToq CpB6FCIkjwSeR8PhWXZp kDpoUeR0r4D1Vp7uZYKY ZWFyczwvdGQ+PHRk BZE9bLxvRTnkCJBbcC6n OLWmY1a6HrFzQzX1SNjm W9PmZPHbfyceBa50hF4w FtRaXoH0TGrsA2Ou ujY3IOHptBIeJFupMEJ3 T10je0K8NDTyBISwUYU1 fOY5cG1mcBxleqogtSQq dDsgdmVydGljYWwt JDhqV460GFQmhWtaYnSq bWFsZTwvdGQ+PHRkIHN0 iVtnJIojMGSrxH0qZOEb J8j6LvVhGnL9XGum J1QoQGCokkigCo38aD7r TlTlQsH0QUbxV3XcvyA0 ZWOopJYkTHevFCS1F60n p8G0ZPEiLKMjHIL1 yNP3tV9wtVgxpbrbfGPw dDsgdmVydGljYWwtYWxp A060MBFawIvnLffdIxUK ec6wMZ9nAtaibYL+ ZU30nr40B3OyJxafFlj0 CMZfXTT1xRP8hY4yMEUa OCmjj8A3hAG7D7ZtweRy tx7dv6peKLTkLNme M37krKRse2I1UQNhzRO2 JTPcmFtpNlUtvM09Gct+ OOUphKdku1UuFakua3vk q1vgmCr5XcLnTAJr oyZpmFxhNVF3v4SsDo35 E43mDRotZOOrFHIiHSXl GUXmtRklmj4jyB0cUa9+ ACAoqWS1lFS0nF7w DkFjOnB2SXhvJ633ZuHr vQVdJolqq3gvd5hpkMn6 IjIwJSIgdmFsaWduPSJ0 i1CyZz30L7VofTac n1OsKow6it49uYBui3S1 kWA1R0PbWQPqsesoeOWi pTmeRS0kQIViuknxZUQx wT2uFPJhN7w2ZxXe MdY7SGneB4LpwiZ7KYOt qPUgHOXpgGJUcN3phylr d3prjgqrCqOjBOOlUNf0 JLp6QNYbqWckGfRa VTX0EcO4LQB7oBMdpQ2u iGvhhhufqC5yPsh+UGh5 k0zspDSrQC7ppRL8GV01 DX51hGWxo9H0fFR4 F5SoKVKpepftcbbgaOV9 TEJcSOGaoV62Nz3leEnr Lj8xIKDuTBA7LKDbfOFq V1KibH7pWtAfUSYc RIKeC0KbbMJeUHpfV151 RKgaVoY0QJJtivXmF2Fp WBPvwKiwRoX9t2Z8Or2V NZ29MM56TU31rNYy u4Z5qYU2D8CuFALmtxts zovqoOQ7SUWhTBSzfG69 Vv6zbPcxEe7nFWOqYDU9 XEPnxGYqZ7YuoV9b ChIvZVXtYGFfK3WodPHt FFojU252TCavTkF9BNNg baBmH2PtYXVncYbwAeX4 g3I1Uv6EJx59QE99 IS46mCRdl3T6wOJ8J5Ly PVZczcxrjutmyOL6FSBh IYHglK10Zt2wlBqiEo4g KFYgELX1LQMupURf L9NkcZ4sLkIjOJNrFOEn P0TfkVZnPPbnM210BTgv FhA7ACEhxxZuJ8IxQKKm aThoJeD9i6B9Aj4W NLdfbgi3O0SeNvuoqMA+ JO89OOMnAR21uSCmxLLr j2axbWm3LeUeBIOgOAG1 jNrrKTpdj2NaBVDs Y29s (more content not included)... Normal [facility] Group B Strep by PCRon 05-08 Group B Strep colonization by PCR Negative Normal Negative [facility] Comment on above: Performed By: #### 4 [id number] ####[facility] [address] [place] [address] Physician Orderon 05-07-2022 Physician Order [id number] 7#1.00CD:127 [facility] Physician Order [id number] 6#1.00CD:127 [facility] Coding Summary.on 03-06-2022 Coding Summary. CD:[id number]:[id number] Gh0bWw+PGhlYWQ+PE1FV TAwR40foFByrS0SG3lOR M8MJKIWLZYFQO2JCV0tg EC3OPqqM6XdcxSh XywnhHWtDC10WDj3GRN4 vHzeYFqtuI3qzNJaI4w7 KrZhAZ72uM47NZcrOEXu KaS4LqSwgwcdrGPx Q7rqOtFiqBLiSvk+PHRh YmxlIHdpZHRoPScxMDAl RcFmsYfcXZ3jMj0mDXXv LWNvbGxhcHNlOiBj v5loOLDcAVsfEG7liLic X4CbyUA3PSKmj7n5Os48 dHI+MPOkAGJ7bAhuDJzh j127GrCvw9ufDDD1 lXFpRSivSGX4B96yf8X9 JRFcDQVyHNV1eIG3hJ4v lCsnfxkyX0NydYMsNlQ7 FLW9sPYhvD2fuXhv fshfqI3bFao+D19LRF9H KAEYDE5BJko0F8MaPoej dHI+SU47DAVgPD77uRVz uPMcc0ondRu7PvPs JXPrURP7aAhwHGbqn4Le NTDlT83alHNoz5Q5JQJs vDgqtQMdTeGxuIS1eF8o OFcffhpou2ubzvsw Emtqb8nhro73yA00U30b GRcqTCKlTWA5DUMnIFUo lKwnkg5mkV8pZo0+IDxj d3fim0mawQy4KlGk OFPlsvOgsAzrXBO7j0Xb Wn02Y3RyySxor5HiHnk2 mt58kLZuz2Y2wKH2NPgl JNHgcN0wWExcJrX7 KRXqWfItxV34eTSfHSfe Dq9tpDyevBvfSN1rBFSj rpovWKHkfO0eCIEfaBOe uFrgUA3hNMThjzki z194CcAkGSO2GWQxlSLe W1WakH7uSgQmCGUpILOf O1AgmAXuOSjwQ514RXxb HkE9POIqabYnI3Bx LSRilJmbGhI0q9Z9Nu7U c7YmxubbACY3AZueEHI8 CoPdSvJkDlA6T1BzNwv8 HAJycWjnSI1oS3Yx TCQfvuwjekjinVC7BGYi KDEbyN97pTVyQXnfIc0d w8O8o640GRRbFXIujV00 Nk0wkYspSLAxmDQX qV0rjsznz9dmgtgwWmEt XSPxAYs0FLc7TNIdwOna QiHbHHV6QmG8RAN7rKJs bA8mmShokkxapI3q Oyc+P03deN9iKFL7LVR7 dajqHWWwmoCfIK86UA18 W9NbYijjjOJdbLD+PGRp vfEmdXybBW4iTuXf w6sef6CqWUxvC6RgZETm JZpsDep9SYRbMEX2lCU1 rX5hSTGrZToxu6J6bUY6 X5MwrhCwul7hw1lb GGPgJLhjK58fbDBie5Z2 AESgnSE7QAGpnKqxIxRg jL88Jjp+HGItbAafs3Nm Vlqys0hlc1sazLx7 IjMwJSIgdmFsaWduPSJ0 z5FxXp35N91pZHgySDFt TZRbJVXcKUDofBlvak1i uY9aIz5+PGNvbCB3 iDA3lW1fVROkUpO5GAci Z776DcZlzDUmKeaax0zi r6ilwXe2XtTqNVRftyLe oJakZTD1m9VtRj66 O85qQJncMNXzPIDvUJTo ZEEsxFfexz4wnI2xZk8+ LN0io5qrex43nY87pXW+ IRRzOIR2vGhrPUcn EBYhcN6mLWopBrV4MIMs DkTvzK73rHFbWJbiRm3f gSezlKvbUL7lMCWeuems s507DeUmh5kvLRVt nNOiGLemPKD9V45qf5D4 HOAsSSGkWZE0mVF6rZ8b bGlnbjogbGVmdDsgdmVy lGpmQPmlRBliV614 IHRvcDsnPlBhdGllbnQg WqCrQXi6Z8SlXgq2OMTr uUobWH8sjUYxKUmfTh7c iYbzmJdxQN0fPTNu zljpy761ReImq6hqHLJo fOLyYFcwFLN8L04jz1X1 DBEhFKMjNVA3dCJ3zC2e bGlnbjogbGVmdDsg hgUtlVdzXGozBWrfK263 IHRvcDsnPkJpcnRoIERh yKJ9ZV69GY33wZQkz8U4 iGW6U4FoQTPxhdcz zaiwdGH4XUXgUKKpyL84 Sq0bjHgnZl5pAMUiXGM4 QBErkJZrA0IpmP3yIlLl HOIoLFImY0XygFLr ZXohI033IYzsCsX6LESm lsRaT1KaMSZpiMvlNnI5 e1I6Gx2XU5U6UV50LC13 gKUkf9S1rIU1Q1Cz IURcfudtzytsxHF8DYFd YORorZ00Uc7bpKwgCw9l EGEhLLE5ALRjoDUqU4Ms tG6fDcIsDCKsKHSs Y1OotYDsRAsjM063MJqq OxZ1QZRfmmOkX8GfUONh sSgjBzH6a4T7Gr5MODk9 SZ41VA12oNWzp8H0 sON5N2AwDWUegllapafr bEO6NWDgHNGmbE78Lz0t aFewEb8xIFDiMMT8OBZo fSXvX3JbrG9uQsPh WOGrNBOqO7WvgGZqTMsx P089PUywJfW6APTanuZj D7OcHRLmmPgyUqU9n2F8 Tp1RKBTkMH59SSL7 gXF1RL38CH71X1MgLage dGFibGU+PHRhYmxlIHdp ZHRoPScxMDAlJyBzdHls BV1dBg2dTXRhCOAh rAapaXNbHqVvv0aqOXBc OOpqOU9ylGdiP4FsbZS3 ZAGvt9e2Ex66X79kP0Os dXA+KUFkvEP0qRV5 bA6iTqBsZfR5QIhhL216 ZtNsrMQcBmuuz0yby3to tKi6DfV3RRFnagPojAwz VII1f3GgUn35U76l IHdpZHRoPSIxNSUiIHZh nSjofh9hsB2hUk7+PGNv oNM7yDQ4iZ3uNoUkEmH6 HImgU561KeEioAKa Qrqzx4lhb0bahEq9SeZu YFJrlpDpcJkxBOJ5v3Qp Om09Q4BblSmeg3RcAuc5 ny27rHDlg4K8lPB7 U2UpPTPnzunezLQcgYxw FC5aHURdvwihAYIesL8t HAStA3y0OhCqHlI2HGzq C2IxdaS5SIGvtRCa PEuzWLU8H87pf0W0ONDg RRGbBWP7pXE7pO5szOgd bjogbGVmdDsgdmVydGlj TMfhLVclU162GBGg lGiySOIayT1yUZHqrZJz eGtbNR7lKLByrnonTbQQ Rl8YSaxeC3YVXWDHOGCs TTwvdGQ+PHRkIHN0 sTnhVKzzNEQjgW5wXOQx Q5r8IoYuQmH9XStxA7Vj JDXzlxsnRn01hU1mKnJz BzL2WBvmX3BkmrG2 GNAnwLIhCSciGWB4Y93l x7F9TFPjRRBcRCA2eTQ8 cS8icCjmsxtzaCZteUwg dmVydGljYWwtYWxp K257FGNslKacIeEpTtY4 ObS1UEi6Q7TqRtf2JQRj hAjqRU3qhDLaORfhPw9g uFszdXfnOM4zVCMe xyxcBQXttQ7uMHKsmCBm yOdcBY1zSVFxjozry856 SwIwUQY5HNMamYAhF5Uc nA7tIeCeKYCaCRRk X4UgmWWsPNryF798TSji RoT9HEZkfqHwW6SgCVSh bOliBfD0r2S6Xt3mSUAW ZWFyczwvdGQ+PHRk MWC5gAyrLBxoUEUmjO8w ZNLdG2i2StDxQaQ3RWuz T8JdTKNntvibRy90iU3b YrKpFfX3HNjpH5Ck shG1IHPbkTXyOUkvTHN1 S17ve7L5QOQvCBIjQZJ7 pLO8kY6geQopsbspvTVy dDsgdmVydGljYWwt SGoeN219UWZqdFmlBcVk bWFsZTwvdGQ+PHRkIHN0 fJrnRWcwMZEswK1rGRFv Y8n4QaEnSfY6WZyh T6XeRWDkggmkJm86hQ6n DcPwGaQ1EUjvD2GgpoU4 LBSwuCKmQUwiTWG4Y65l a0H5MEHoXJSyYYL6 oGM0xI9nfYsnjwwnvNNk dDsgdmVydGljYWwtYWxp A823SQUyeYnzUe83uFKv aXgdjpM7D5AxHykh dHI+SF53EYHrCZ44oZJg gJPlx6tlgFm1ArUgYALz ZXV4oEluCNmgl3DcSKAz T24rtZZxo0N8HGMa eBcddVZcRoZwuMX3oH6q GOhflfuju3mvndnnNhok a8nddk01jZ00Z66hTToe ZHRoPSIzMCUiIHZh wObmcr0vdL7wKe9+PGNv jNR5pXU1kX9hHdFmMiC5 IZadB998WhTudXOiRnxz u6zdv1hpvKy0PsLr XZHzazVwuByyILD0u0Kf Ws32C24dQIcxJGBiAPLa LPRaCFJruObsuw6rpU1q Ii8+PX3ar7whqx72 dG16rNA+WFFqLIU0mTqc LJqnAMZcbE2zZRmjPwS1 RYGpYmZusG42pYMfHXdk Fx1ttAodxZiiTV8w WBTvxqlxe730LwAjf0xr UFFqkOMiCYlrWSM4M71x e5Y9YETwWIBaQZC6aUL9 tV8qeDbjttpfaIHh dDsgdmVydGljYWwtYWxp L910EREelAygItBzaSUo X0tkbjRICR0tLpvuhRN+ SKIsBBV0cQzkZDxb HGNfpW9sUXRhY9d6NpHt QnW5KNznU6YrtpR6VSYm fFPoIBClfBYGmW1vxfwr y0ulesedLkRuBZSu TYz3JIb9MPCozXfoZgKq UFK2JhP7MOL6xUAddF5b sTnqqlltvN1iFmr+RklO OjwvdGQ+PHRkIHN0 nPqlPMusOYZvtY8vAGIz P3g1RnSzYqM9TDxtJ2Hd zsR2QAHnkEFaTCQjmSXT nD2qihovp8nrmqtc EsEmDVGhBHb8VIg7QJJl xNkwNlKwWMI7CmN4UTR3 uSFpeH3plNzbgsvwgC2q Oyc+TVJOOjwvdGQ+ JBVuALC9dOucVTbqYVDi uT2fTKMxX0j4IwMxAnN1 GChqD0AjcjP6PMEvsEVq ZACrlKOOqY3ejyuz j8ayvmaxLaNoKWOpYVq1 ORk1DOFxhWfxCuXvJKV4 OpJ2TBJ7wRWdsD4mxOot cantbA9jEum+UGF5 LDY6BZ75ZX91H8HoSisj dGFibGU+PHRhYmxlIHdp ZHRoPScxMDAlJyBzdHls RY4gRh4jYLExMCTy bGxh (more content not included)... Normal [facility] RPR with Conf Rfxon 02-25-20 22 Reagin Ab RPR Ql (S) Non-Reactive Invalid Interpretation Code Non Reactive [facility] Comment on above: Result Comment: Perf ormed at: [facility] [address] [id number] PhD Ed Yeboah Performed By: #### 1 [id number] ####[facility] [address] [place] [address] Consent for Treatmenton Consent for Treatment [id number] #1.00CD:127 Normal [facility] Gest Scr Glu 1 Hron 02-23-20 22 Glucose [Mass/Vol] 121 mg/dL Normal 55-140 [facility] Comment on above: Result Comment: Posi tive Screen =1 HR > 140mg/dL Performed By: #### 1 [id number] ####[facility] [address] [place] [address] Hct & Hgbon 02-22-2022 Hematocrit (Bld) [Volume fraction] 33.3 % Low 34.0-46.0 [facility] Comment on above: Performed By: #### 1 [id number] ####[facility] [address] [place] [address] Hemoglobin (Bld) [Mass/Vol] 11.6 g/dL Low 12.0-16.0 [facility] Comment on above: Performed By: #### 1 [id number] ####[facility] [address] [place] [address] Physician Orderon 02-22-2022 Physician Order [id number] #1.00CD:127 Normal [facility] Vital Signs Date Time Vital Sign Value Performing Clinician Facility 12-31-2023 10:56-0500 Body mass index (BMI) [Ratio] 34.51 kg/m2 Maame BARR Work Phone: [facility] 12-31-2023 10:56-0500 Body weight 88.36 kg Maame BARR Work Phone: [facility] 12-31-2023 10:56-0500 Diastolic blood pressure 56 mm[Hg] Maame BARR Work Phone: [facility] 12-31-2023 10:56-0500 Systolic blood pressure 108 mm[Hg] Maame BARR Work Phone: [facility] 05-31-2022 15:01-0400 Hourly Rounding Devin Pereira [facility] Comment on above: Result Comment: discharge instructions g iven 05-31-2022 14:36-0400 Hourly Rounding Devin Pereira [facility] Comment on above: 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 05-31-2022 13:00-0400 Hourly Rounding Devin Pereira [facility] 05-31-2022 09:24-0400 Body temperature 98.06 [degF] Devin Pereira [facility] 05-31-2022 09:24-0400 Diastolic blood pressure 73 mm[Hg] Devin Pereira [facility] 05-31-2022 09:24-0400 Heart rate 49 /min Devin Pereira [facility] 05-31-2022 09:24-0400 Mean blood pressure 90 mm[Hg] Devin Pereira [facility] 05-31-2022 09:24-0400 Systolic blood pressure 125 mm[Hg] Devin Pereira [facility] 05-31-2022 09:24-0400 Blood Pressure Location Devin Pereira [facility] 05-31-2022 09:24-0400 Mean blood pressure 90 mm[Hg] Devin Pereira [facility] 05-31-2022 09:24-0400 Respiratory rate 15 /min Devin Pereira [facility] 05-30-2022 20:40-0400 Body temperature 98.24 [degF] Devin Pereira [facility] 05-30-2022 20:40-0400 Diastolic blood pressure 72 mm[Hg] Devin Pereira [facility] 05-30-2022 20:40-0400 Heart rate 61 /min Devin Pereira [facility] 05-30-2022 20:40-0400 Mean blood pressure 86 mm[Hg] Devin Pereira [facility] 05-30-2022 20:40-0400 SaO2% (BldA) [Mass fraction] 97 % Devin Peerira [facility] 05-30-2022 20:40-0400 Systolic blood pressure 113 mm[Hg] Devin Pereira [facility] 05-30-2022 20:40-0400 Mean blood pressure 86 mm[Hg] Devin Pereira [facility] 05-30-2022 14:51-0400 Body temperature 98.24 [degF] Devin Pereira [facility] 05-30-2022 14:51-0400 Diastolic blood pressure 70 mm[Hg] Devin Pereira [facility] 05-30-2022 14:51-0400 Heart rate 52 /min Devin Pereira [facility] 05-30-2022 14:51-0400 Mean blood pressure 84 mm[Hg] Devin Pereira [facility] 05-30-2022 14:51-0400 Systolic blood pressure 114 mm[Hg] Devin Pereira [facility] 05-30-2022 14:51-0400 Blood Pressure Location Devin Pereira [facility] 05-30-2022 14:51-0400 Respiratory rate 16 /min Devin Pereira [facility] 05-30-2022 14:45-0400 Blood Pressure Location Devin Pereira [facility] 05-30-2022 14:45-0400 Respiratory rate 16 /min Devin Pereira [facility] 05-30-2022 08:00-0400 SaO2% (BldA) [Mass fraction] 98 % Devin Pereira [facility] 05-30-2022 08:00-0400 Mean blood pressure 111 mm[Hg] Devin Pereira [facility] 05-28-2022 16:40-0400 Hourly Rounding Devin Pereira [facility] Comment on above: Result Comment: Patient declines vaginal exam due to expressing not having any pain or noticable contractions. RN notes decline. 05-28-2022 16:00-0400 Hourly Rounding Devin Pereira [facility] Comment on above: Result Comment: Discharge instructions g iven and educated to come to hospital tomorrow at 1700 for induction. Educated on induction process and what inductions intail. RN answers questions from patient. Patient voices no concerns and agrees. 05-28-2022 15:00-0400 Hourly Rounding Devin Pereira [facility] Comment on above: Result Comment: patient resting watching tv with fiance in room. 05-28-2022 15:00-0400 Promise to Return Devin Pereira [facility] 05-28-2022 14:45-0400 Blood Pressure Location Devin Pereira [facility] 05-28-2022 14:45-0400 Body temperature 98.06 [degF] Devin Pereira [facility] 05-28-2022 14:45-0400 Diastolic blood pressure 54 mm[Hg] Devin Lorenzoten [facility] 05-28-2022 14:45-0400 Heart rate 64 /min Devin Pereira [facility] 05-28-2022 14:45-0400 Mean blood pressure 68 mm[Hg] Devin Pereira [facility] 05-28-2022 14:45-0400 Respiratory rate 16 /min Devin Pereira [facility] 05-28-2022 14:45-0400 Systolic blood pressure 97 mm[Hg] Devin Lorenzoten [facility] 05-28-2022 14:00-0400 Promise to Return [employer] [facility] 05-28-2022 13:00-0400 Promise to Return Devin Pereira [facility] 05-28-2022 12:00-0400 Diastolic blood pressure 53 mm[Hg] Devin Pereira [facility] 05-28-2022 12:00-0400 Heart rate 50 /min Devin Pereira [facility] 05-28-2022 12:00-0400 Mean blood pressure 66 mm[Hg] Devin Pereira [facility] 05-28-2022 12:00-0400 Systolic blood pressure 91 mm[Hg] Devin Pereira [facility] 05-28-2022 08:47-0400 Body temperature 97.7 [degF] Devin Pereira [facility] 05-28-2022 08:47-0400 Diastolic blood pressure 59 mm[Hg] Devin Pereira [facility] 05-28-2022 08:47-0400 Heart rate 64 /min Devin Pereira [facility] 05-28-2022 08:47-0400 Mean blood pressure 74 mm[Hg] Devin Pereira [facility] 05-28-2022 08:47-0400 Respiratory rate 18 /min Devin Pereira [facility] 05-28-2022 08:47-0400 Systolic blood pressure 103 mm[Hg] Devin Pereira [facility] 05-28-2022 08:45-0400 Blood Pressure Location Devin Pereira [facility] Encounters Encounter Date Encounter Type Care Provider Facility Start: 12-31-2023 [employer] Result Encounter Maame BARR Work Phone: [facility] Unsolicited Start: 12-31-2023 External Result Encounter Maame BARR Work Phone: [facility] Unsolicited Start: 12-31-2023 External Result Encounter Maame BARR Work Phone: [facility] Unsolicited Start: 12-31-2023 End: 12-31-2023 ambulatory MAAME SUNSHINE Not Available Start: 12-31-2023 End: 12-31-2023 Patient encounter procedure Maame BARR Work Phone: [facility] Start: 12-31-2023 End: 12-31-2023 Periodic preventive med est patient 18-39 yrs Maame BARR Work Phone: [facility] Comment on above: Second trimester pre gnancy; Screening, , for anatomic survey; Well woman exam with routine gynecological exam; Exposure to STD; Vaginal discharge Start: 12-02-2023 End: 12-02-2023 ambulatory EARL ZELDA Not Available Start: 11-06-2023 End: 11-06-2023 ambulatory EARL ZELDA Not Available Start: 12-18-2022 End: 12-19-2022 ambulatory Kaelyn X Orzech Facility:[facility] Start: 12-18-2022 End: 12-18-2022 Patient encounter procedure Kaelyn X Orzech [facility] Start: 12-04-2022 End: 12-05-2022 ambulatory Kaelyn X Orzech Facility:[facility] Start: 12-04-2022 End: 12-04-2022 Patient encounter procedure Kaelyn X Orzech [facility] Start: 11-28-2022 End: 11-29-2022 ambulatory Kaelyn X Orzech Facility:[facility] Start: 07-11-2022 End: 07-12-2022 ambulatory Devin Pereira Facility:[facility] Start: 07-11-2022 End: 07-11-2022 Lab Drop off Devin Pereira [facility] Start: 05-29-2022 End: 05-31-2022 Evaluation and management of inpatient Devin Pereira Facility:[facility] Start: 05-29-2022 End: 05-31-2022 Evaluation and management of inpatient Deivn Pereira [facility] Start: 05-28-2022 End: 05-28-2022 ambulatory Devin Pereira Facility:[facility] Start: 05-28-2022 End: 05-28-2022 OB Triage Devin Pereira [facility] Start: 05-21-2022 End: 06-24-2022 Pre-admission assessment Devin Pereira [facility] Start: 05-07-2022 End: 05-08-2022 ambulatory Devin Pereira Facility:[facility] Start: 05-07-2022 End: 05-08-2022 ambulatory Devin Collier Kelli Facility:[facility] Start: 05-07-2022 End: 05-07-2022 Lab Drop off Devin Pereira [facility] Start: 02-22-2022 End: 02-23-2022 ambulatory Devin Pereira Facility:[facility] Procedures Date Procedure Procedure Detail Performing Clinician [...] AM EST Routine [facility] [address] [place] [id number] Earl Mendoza, DO [address] [place] [address] [facility] Start: 01-27-2024 End: 01-27-2024 Professional / ancillary services management 01/27/2024 9:00 AM EST Ancillary Procedure [facility] [address] [place] [id number] [facility] Start: 12-31-2023 End: 12-31-2024 Alpha fetoprotein, maternal Alpha fetoprotein, maternal Lab Routine Second trimester Expected: 12/31/2023 (Approximate), Expires: 12/31/2024 [facility] Comment on above: Expected: 12/31/2023 (Approximate), Expires: 12/31/2024 Start: 12-31-2023 End: 12-31-2024 US for US OB ANATOMY SINGLE W US OB CERVICAL LENGTH Imaging Routine Screening, , for anatomic survey Expected: 12/31/2023 (Approximate), Expires: 12/31/2024 [facility] Comment on above: Expected: 12/31/2023 (Approximate), Expires: 12/31/2024 CHLAMYDIA TRACHOMATI S (GENITO/STI) CHLAMYDIA TRACHOMATIS (GENITO/STI) Lab Routine Exposure to STD Ordered: 12/31/2023 [facility] Comment on above: Ordered: 12/31/2023 Cytology Cervical or vaginal smear or scraping study Pap Smear Pathology and Cytology Routine Well woman exam with routine gynecological exam Ordered: 12/31/2023 [facility] Comment on above: Ordered: 12/31/2023 Neisseria gonorrhoea e DNA [Presence] in Unspecified specimen by JAYDON with probe detection Neisseria gonorrhea DNA probe, direct Lab Routine Exposure to STD Ordered: 12/31/2023 [facility] Comment on above: Ordered: 12/31/2023 SURESWAB(R) ADVANCED VAGINITIS PLUS, TMA SURESWAB(R) ADVANCED VAGINITIS PLUS, TMA Pathology and Cytology Routine Vaginal discharge Ordered: 12/31/2023 [facility] Work Phone: Comment on above: Ordered: 12/31/2023 Immunizations Immunization Date Immunization Notes Care Provider Shaun [email or web address] 01-18-2013 hepatitis A vaccine, unspecified formulation [employer] [facility] 09-12-2010 meningococcal ACWY vaccine, unspecified formulation [employer] [facility] 09-12-2010 tetanus toxoid, reduced diphtheria toxoid, and acellular pertussis vaccine, adsorbed [employer] [facility] 02-23-2003 DTaP, unspecified formulation [employer] [facility] 02-23-2003 measles, mumps and rubella virus vaccine [employer] [facility] 02-23-2003 poliovirus vaccine, unspecified formulation [employer] [facility] 06-27-1999 hepatitis B vaccine, pediatric or pediatric/adolescent dosage [employer] [facility] NEGATED: Highlighted row has not occurred!11-28-2022 influenza virus vaccine, unspecified formulation [employer] [facility] NEGATED: Highlighted row has not occurred!11-28-2022 SARS-CoV-2 mRNA (tozinameran 5y-11y) vaccine [employer] [facility] Payers Date Payer Category Payer Private Health Insurance [facility] [id number] 2022-Present [address] [address] [place] [address] [id number] 2022 Private Health Insurance [id number] 2020 Private Health Insurance [id number] 1997 Unknown [id number] 2.16.840.1.017787.3.579. 2.727 1997 Unknown [id number] 2.16.840.1.162700.3.579. 2.727 1997 Unknown [id number] 2.16.840.1.818327.3.579. 2.727 1997 Unknown [id number] 2.16.840.1.504585.3.579. 2.727 1997 Unknown [id number] 2.16.840.1.207322.3.579. 2.727 1997 Unknown [id number] 2.16.840.1.690881.3.579. 2.727 1997 Unknown [id number] 2.16.840.1.825852.3.579. 2.727 1997 Unknown [id number] 2.16.840.1.058029.3.579. 2.727 1997 Unknown [id number] 2.16.840.1.615881.3.579. 2.727 1997 Unknown [id number] 2.16.840.1.195077.3.579. 2.1259 1997 Unknown [id number] 2.16.840.1.113605.3.579. 2.1259 1997 Unknown [id number] 2.16.840.1.283675.3.579. 2.1259 Social History Date Type Detail Facility Tobacco smoking status No Smoking Status Entered [facility] Start: 12-02-2023 Sex Assigned At Female F [facility] Start: 11-28-2022 End: 12-02-2023 Tobacco smoking status Never smoked tobacco (finding) [facility] Tobacco smoking status Never [facility] Start: 12-31-2023 Alcohol intake Current drinke r of alcohol (finding) [facility] Start: 12-02-2023 History of Social function [facility] Start: 12-02-2023 Alcohol Comment caffeine: coff ee in the am [facility] Start: 09-17-2023 [facility] Start: 1995 Sex Assigned At Female [facility] Start: 10-02-2023 Gender identity Identifies as female gender (finding) [facility] Functional Status Date Assessment Result Facility 05-29-2022 Functional Status No [facility] 05-28-2022 Functional Status N/A [facility] Clinical Notes 05-07-2022 to 12-31-2023 CORTNEY Ospina [...] which includes the following prescription(s): cholecalciferol and nybadvzq-fvl-xz-fa. Medical History: Active Ambulatory Problems Diagnosis Date [...] nursing note reviewed. Exam conducted with a software engineer intern present. Vitals: Estimated body mass index is [...] obtained without difficulty and patient was given [facility] order to have obtained. Follow Up: Patient is to return to our office in 4 weeks for routine OB appointment Documented by Ada Hollis LPN on behalf of: CORTNEY Ospina documented in this encounter [facility] 06-04-2022 Note DATE OF DISCHARGE: 0 05/31/2022 [...] complication. Devin Pereira M.D. eran Dictated: 06/03/2022 [id number] Transcribed: 06/03/2022 [facility] Comment on above: Result Comment: Elec tronically Signed By: Devin Pereira MD\.br\Date and Time Signed: 06/04/22 08:08 EDT 05-31-2022 Note The following Patien t Education Materials have been given to the patient: EducationMaterial [facility] 05-31-2022 Note HOSPITAL REGULATIONS : All Positive [...] details. Devin Pereira M.D. ls Dictated: 05/31/2022 [id number] Transcribed: 05/31/2022 [facility] Comment on above: Result Comment: Elec tronically Signed By: Devin Pereira MD\.br\Date and Time Signed: 05/31/22 09:16 EDT 05-30-2022 Evaluation + Plan note Extrac noy from: Title:Post-LDE Author:Jose Miguel Garcia Jr., DO ate:05/30/22 Plan Transfer/ Discharge: Condition stable. Extracted from: Title:L&D Epidural note Author:Omaira Garcia Jr., DO Date:05/29/22 Impression and Plan Plan Labor epidural at request of patient.. [facility]07-06-2022 Hospital Discharge instructions Follow Up Care 05/29/2022 07:05:03 With:Dr. Pereira [phone] Address:Unknown When:6 weeks Comments:Call for any problems. [facility]100.5 F, heavy bleeding With: Services [phone] Address:Unknown When:06/03/2022 14:00:00 [facility]07-05-2022 NoteThe following Patient Education Materials have been given to the patient: [facility]Material[facility] Hospital Discharge instructions Follow Up Care 05/28/2022 08:38:04 With:Devin Pereira Address: [address], [address] [address]- Business (1) When:05/29/2022 17:00:00 Comments:Call for any problems.Return for contractions closer, longer, and harder.Return for decreased fetalmovement.Return if ruptured membranes or vaginal bleeding. [facility]06-14-2022 Evaluation + Plan note Diagnostic Tests Pending * Group B Streptococcus colonization by PCR [facility]07[facility] Future Scheduled Tests Radiology* US Abdomen, Limited [facility]18[facility] Diagnosis Second trimester state, incidental Screening, , for anatomic survey Encounter for anatomic survey Well woman exam with routine gynecological exam Routine gynecological examination Exposure to STD Vaginal discharge Leukorrhea, not specified as infective [facility] N[facility] No data available for this section [facility] No data available for this section [facility] No data available for this section [facility] Summary Purpose Family History No Family History Records FoundNo Family History Records Found Advance Directives No Advanced Directives Records FoundNo Advanced Directives Records Found Additional Source Comments Care Team (unrecognized sect ion and content) Router Operator Radial Relationship Specialty Start Date End Date Kale, MD Cor[place] [address] [place] [address] PCP - General 10/30/23 Router Operator Radial Relationship Specialty Start Date End Date Corbin Henley MD [address] [place] [address] PCP - General 10/30/23 INFORMATION SOURCE (unrecogn ized section and content) DATE CREATED AUTHOR [facility]27/2022 [facility] DATE CREATED AUTHOR AUTHOR'S ORGANIZ ATION 01/01/2024 [facility] EPIC Reason for Visit [...] BE BASED ON THE PRIMARY CLINICAL RECORDS. [employer] provides no warranty or guarantee of the accuracy or completeness of information in this document.
== END 2024-03-02 09:57 | disposition home or self-care (01) ==
LOC: NOMS 09:56
PROVIDERS: Visit Provider Obstetrics & Gynecology
DX: O44.40 Low lying placenta NOS or without hemorrhage, unspecified trimester (principal); O26.842 Uterine size-date discrepancy, second trimester; Z3A.24 24 weeks gestation of pregnancy
CPT/HCPCS: 76815; 76816; 76817

== ENCOUNTER 2024-03-09 08:12 | Outpatient (OUT) | payer OTHER, SELFPAY ==
[2024-03-09 09:33] LABS: Glucose 1 Hour 128 mg/dL (<130)
[2024-03-09 10:36] LABS: Basophils Percent Auto 0.3 % (0.2-2.0); Eosinophils Percent Auto 0.3 % (0.9-7.0); Hematocrit 34.2 % (36.0-48.0); Hemoglobin 11.3 g/dL (12.0-16.0); Immature Granulocytes Abs Auto 0.04 10^3/uL (0.00-0.03); Immature Granulocytes Pct Auto 0.4 % (0.0-0.5); Lymphocytes Absolute Auto 1.5 10^3/uL (1.2-3.8); Lymphocytes Percent Auto 15.5 % (20.5-60.0); Mean Corpuscular Hemoglobin 29.3 pg (26.7-34.0); Mean Corpuscular Volume 88.6 fL (81.0-99.0); Mean Platelet Volume 10.2 fL (9.5-13.5); Monocytes Absolute Auto 0.7 10^3/uL (0.3-0.8); Monocytes Percent Auto 6.8 % (1.7-12.0); Neutrophils Absolute Auto 7.5 10^3/uL (1.4-6.5); Neutrophils Percent Auto 76.7 % (43.0-75.0); Platelet Count 286 10^3/uL (150-450); Red Blood Count 3.86 10^6/uL (4.20-5.40); Red Cell Distribution Width 13.2 % (11.0-15.0); White Blood Count 9.8 10^3/uL (4.0-11.0)
== END 2024-03-09 08:13 | disposition home or self-care (01) ==
LOC: LAB 08:13
PROVIDERS: Visit Provider Physician Assistant
DX: Z13.1 Encounter for screening for diabetes mellitus (principal)
CPT/HCPCS: 36415; 82950; 85025

== ENCOUNTER 2024-03-21 20:09 | Observation (INO) | payer OTHER, SELFPAY ==
[2024-03-21 20:14] VITALS: BP 129/74; PULSE 93; TEMP 36.6; O2SAT 100; BMI 38.6
--- OUTSIDE RECORDS SUMMARY | 2024-03-21 20:14 | XMS_ITS | CCD ---
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 Cardiac Care Unit Nurse Name Role Phone Shanna Daniel Primary Care [...] Attending Unavailable Orzech, Kaelyn Brooks Attending Unavailable Corbin Henley MD Primary Care Provider EARL MENDOZA Attending Unavailable MAAME SUNSHINE Attending Unavailable EARL MENDOZA Attending Unavailable MAAME SUNSHINE Attending Unavailable Medications Current Medications Medication Drug [...] Weight Dosing Start Date: 05/31/22 Status: Ordered Zyraehqn-Dfo-Ux-FA ( 1 + IRON PO) (3 sources) Tvuwqhrs-Xqi-On-FA ( 1 + IRON PO) Take by [...] Low,>-Panic High,A-Abnormal,AA-Critical Abnormal Performed at: 01 [facility] [address] [place] [address] Terri Cantu MD, IGP, RFX APTIMA HPV ASCU Note . [facility] Comment on above: TESTS RESULT FLAG UN ITS REF RANGE LAB DIAGNOSIS: 02 NEGATIVE FOR INTRAEPITHELIAL LESION OR MALIGNANCY. Specimen adequacy: 02 Satisfactory for evaluation. No endocervical component is identified. An endocervical component is not commonly seen in the patient. Performed by: Марина Stacy, Insurance Analyst ([facility]) . 02 Note: Note 02 The [...] <-Panic Low,>-Panic High,A-Abnormal,AA-Critical Abnormal Performed at: [address] [address] Terri Cantu MD, Performed at: =[facility] [id number] Saturator Tender: Terri Cantu MD, Phone: [phone] Performed at: [address] [id number] Saturator Tender: Terri Cantu MD, Phone: [phone] SPATULA-ALONE ENDOCERVIX [facility] URETHRITIS/DISCHARGE PLUS VA GINITIS (HTRX)on 01-02-2024 ATOPOBIUM VAGINAE 0 [facility] ATOPOBIUM VAGINAE Not detected [facility] BVAB 2,3 (BACTERIAL VAGINOSIS ASSOCIATED BACTERIA 2, 3); MOBILUNCUS SPP 0 [facility] BVAB 2,3 (BACTERIAL VAGINOSIS ASSOCIATED BACTERIA 2, 3); MOBILUNCUS SPP Not detected [facility] BASSEM ALBICANS, PARAPSILOSIS, TROPICALIS 0 [facility] BASSEM ALBICANS, PARAPSILOSIS, TROPICALIS Not detected [facility] BASSEM GLABRATA 0 [facility] BASSEM GLABRATA Not detected [facility] BASSEM KRUSEI 0 [facility] BASSEM KRUSEI Not detected [facility] CHLAMYDIA TRACHOMATIS 0 [facility] CHLAMYDIA TRACHOMATIS Not detected [facility] GARDNERELLA VAGINALIS 0 [facility] GARDNERELLA VAGINALIS Not detected N S [facility] MEGASPHAERA (TYPES 1, 2) 0 [facility] MEGASPHAERA (TYPES 1, 2) Not detected [facility] MYCOPLASMA GENITALIUM 0 [facility] MYCOPLASMA GENITALIUM Not detected N S [facility] NEISSERIA GONORRHOEAE 0 [facility] NEISSERIA GONORRHOEAE Not detected N OMS [facility] TRICHOMONAS VAGINALIS 0 [facility] TRICHOMONAS VAGINALIS Not detected N [facility] Urinalysis macro (dipstick) panel (U)on 12-31-2023 Bilirubin, UA Positive Negative - 4(70) +++ mg/dL [facility] Comment on above: small Blood, UA Positive Negative - 50 Luis/mcL [facility] Comment on above: trace-intact Clarity, UA Clear [facility] Color, UA Yellow [facility] Glucose, UA Negative Negative - 1999(110) ++++ mg/dL [facility] Interpretation and review of laboratory results Abnormal [facility] Ketones, UA Positive Negative - 160(16) ++++ mg/dL [facility] Comment on above: trace Leukocytes, UA Negative Negative - 500+++ Kahlil/mcL [facility] Nitrite, UA Negative Negative - Positive [facility] pH, UA 6.0 5 - 9 [facility] Protein, UA Positive Negative - 1999(20) ++++ mg/dL [facility] Comment on above: 100 Spec Grav, UA 1.030 1 - 1.03 [facility] Urobilinogen, UA 1.0 0.2 - 12 mg/dL [facility] Coding Summary.on 12-24-2022 Coding Summary. [id number] Gh0bWw+PGhlYWQ+PE1FV GYfQ08vbLFbjN1UO3eCA C1VMQLJNIXPCY0BWM6mv MX1FHvjB5FjdbXz LnqqaGDdLC79QQw4KMW8 nQobRZdfzC6mlUHtH7z0 FiKiNR34xE63ARtxXOSa BkI5WeCikrpdfONg O4ysJxJprKSyClf+PHRh YmxlIHdpZHRoPScxMDAl SzSecFskME5qMc9kZORp LWNvbGxhcHNlOiBj z0ziWYSnOIaaYP2ppAht R0AogLF0GJBlp7n0Ey92 dHI+VMXvGMX7oKvwZUdg y714XsQwp8cyIXG5 tWMnCUpkHMD9F28yq8U1 YMYpXFEfUUO9zRL9oV0e bQxafrajL4BdoLDvJfI4 UAB1iFSbuR8aqEus wjpjuQ2mRxc+B19PQI7X PYPNRE9CTed5G0PoUxva dHI+IB14IZIcDN63rADi sGFbz9jhfWs2UdSp PYRmLKF0gGciXPrnd8Vw XTJxK17vqKXnt9R5YXQg dJpmqDDgNhOnhQX2bX5e YXdlgjbxs7wrpdfy Pczob7taki43qI38Y49j DMzxOBOpYIA8ZFFtLDLp yQzxun2gdZ9cKs5+IDxj x8dym4vtbRi8MpGf HAZudpValRxrSHF4s2Cu Bi61F0WfnJxen1PoZxz9 fb75gHKop8J5xVT0BWij UDMkkJ6lKXfaZzV2 GFUyIbHkzK61vHZkXIrq Us2kpKxfhOhmHZ1rCRXy ovucNRKgqS2vYTMvsWPc jIohIR0rRXEyfkmh e891WbVvDKW6XHSqoPBc E8KyaE8hQyKnZDDvVVYn N9JmgWIeNTopC179IOdu JpE8GXEdifQfC0Ax AGAuqBltZyM9u5Y8Xv8P h7IubxyiVAX9HHniXPWw LnMsIfClJjF8Q6YsQvq0 LTZztGapQL6tC0Zh JGIiopbuxoldpUR4XFSl QVJxjN01pKEiCCtoYh7q m5I1e889CIXbHEXqfG41 Zm5lcLrpDJQjgEDC jU1kbbyir1jdavbaGjGe CQZuDXk1SMi3XPEifCtv CjRmZRT7MsE9PBN6aIOc eW0gjCfmwsndeW4u Oyc+T58dbO5rWMV4ICQ1 ezefZJIlbhKiHS59MO77 F7CwIabwtNZviOG+PGRp bfEanZvxBE7qHcVh x3qoc9ImFJpeH5QbULFb FRpjZmf7RCUbXUG9mJA1 xM5kZBRaUKuee5X4cJK6 S4JvaqZmbw5hu0zo RYXbELxpQ82exQNxq2I2 HOIojPI5NIGveZkbFrXd hN13Vol+WISopEmkz0Sb Ofqfu2afn8erjOo9 IjMwJSIgdmFsaWduPSJ0 r8CjEz74W82zPZpxKTCm QYAmGZHgGUGqdGsgrf3u fE7tQg0+PGNvbCB3 tKX8mB8vSMQmFwU7JHjo W812TxNamRHaOtepk3kd v0ylzEv4EiSoACIiqxAx mBuvWMU9b4ShNq40 G06jZVnhHAGwJICbFXPl DYMwtNkmmm3rcG4fSh5+ MU0tl8fkpt73uL22wKB+ QQKiTLD6tAtgMChm OLNphS0aTNauIuP9NKIe PbRdrM52fSVeKJzzFq8t uYmnyLpkCR4iLDAwtunn h605FmGlz4jrXGWa qUNaLMyqNKZ3S87zm0G1 SQVuBKKtGZE8hXW5nW0o bGlnbjogbGVmdDsgdmVy sQqeYJwjFVzyN666 IHRvcDsnPlBhdGllbnQg PmQcTUx6D9TjBbl6BDAe xEjiCW7vlPUqNZsdOm8q iPlulAphHS6dTAAr jmpdr470JpSzh0okEUFg mZWaXCddJXC4A64md7T2 CVQwZUVzVUZ9qTC7fU0t bGlnbjogbGVmdDsg usGxdCbmWWzhZNlpK093 IHRvcDsnPkJpcnRoIERh aJH5PE58KG27dWBin6Z4 qEV1Z8WuMXTvcqdz mohurTU3TRNgVFXonR20 Mp4ieZigVh5tTYGlMOG5 ZWUneYUgD3KemX3iUpLz FBFmUPSzU4MuyXJn IZvpZ013JTppIwX7XKCa tgOmL8DjGEQrkCqsBsZ1 x9C8Pr8TE7N7IN03PD67 pJZpk0G0hAY2E9Ke IMWtbdjkfecbhGX2MYNr LHNvaE99Do1ioOwaDm1n ZAArXGF4STIagSLgR7Md nS2cCgHcRCCmRYEl I8LbuJMlXEbpT507IIoa ShR3DTCcroDlX1EuRQOl jSguYxR2o9V5Fr3RDUx6 RZ88ZF66jXEep5H9 eII4S9BpNIYfaqcfqdfd qGJ7DOMhYZXvhV95Xp8e xNzlKj1xJEHxWQT4NQWf xFXpV9KakS1rFjRh RHCsXXCgG6ZboSAqCFyy K574ALrtGfL4DDVigxOi B3GtFZLguHvbVwD5j6H5 Ou7TZTCeLT83XFE3 oEK6AY17PH78E8IaJwwq dGFibGU+PHRhYmxlIHdp ZHRoPScxMDAlJyBzdHls SV9yWg0qNHYoGGJc lUquoMRsNdTnp0idHIYd NMmuUU2llVhyS3XmgDP2 FBLtw1z3Kh71I72fH0Qj dXA+QEPpsIT9eLG9 hP1oXlHoFaF2VBppY750 HcKqtZBqGdmfm6eie5sr lHt0MiA8FVZjcvNgcEld CUF9r9SuTr54M74l IHdpZHRoPSIxNSUiIHZh xKupoj0ioQ8gTc0+PGNv vSP7yQG7sQ2oVwPvIpP3 XAkpN125TbQcwLMo Qgvzu3yop3fweAx1VnNm CSQgwnFvsGzmNYH4z4Cg If38F5BwuBydo0IuJfc1 jm33nENhm0R5bIG0 C5LxGJPevdpejDDtoAar PV6eHIEwcmdbUBLddE1i MNBkO2o8ZoZmBbL3DGth Y4ItosP2NZVsaKPy UYqcQKD5T52yi4R4FOHo FAAtZEE3wAQ7bK6wsZnb bjogbGVmdDsgdmVydGlj UUowXRjfY704XZQf sVucZUXveB0zVFJrjSCy iMpzSV9dBXIhvyzeQzVT Zp3DRnckV9TFQLMMPSQg TTwvdGQ+PHRkIHN0 oVezVZbuKSIsnP5mKJHi M3y9KwTjNdJ4VQueB8Vl VAAikkvkXq83bE6oQvBy ZvZ0MYnmH8HkktG0 KGVklUEsZXyrHEH3N37z i0U7SQNhTBGaNMV7uBX5 dL6mjKrgmmtfsPTgtZis dmVydGljYWwtYWxp Y573QDOobMgtZzViSlP4 ZqZ4XPs1T3IsZus8OLFn vRcaIY8wlQItTLfjKn0y oEgnvEytJS5lZEJq hugkMUHijI7xXYEeoXIx fGquQT1cNYJqhzvzd222 JgUnNTX2OBBjzKRnN6Nn rH6oZvTnNKKePKMv I9IrmKOhZAzvR044IRuz PdY4HSLepkTnB0OgWGRb kAdeKnK6y5K9Zj2rOEBB ZWFyczwvdGQ+PHRk LCL0tYtxOGvcEDTceM3r EODhE3z8BvHuTiT8YDyi U1IhVMFjjgasRo35tJ4q DbNcLoX2QXzmI5Oq tiX0YYLqxEIkOXerEQU0 U72tz5H5XSCoJVSlXEN2 dFF8vS3gcUkyohzedALt dDsgdmVydGljYWwt ZUebR781ETWnaEzaBkGt bWFsZTwvdGQ+PHRkIHN0 oAmdCZsoKFAdbL9pPIZg Q1k9RcMsSyH5BVwx L3UaKONqprsxYu63jG7k DgPrWtD7TCaiU0CjwgL1 CEKsnVGfUYpjMTW5U23p a2C1XCYuWDYqMHV7 qQA5yK6aaTgglrxsgALa dDsgdmVydGljYWwtYWxp L156YAHoyZscPh45eVBv fJaohgA5O7YtBnwg dHI+UU94HDNoKJ95oBMz gHTnl7leoTv7RgRxEBHg NZL9mWlcDNhef7KnHQLk E60wpFPvy1N5NORf gEuncNKwErRfuSB9sM6c JHemeaxzu8wtarklYndk v0feqm78gF17V77uXTum ZHRoPSIzMCUiIHZh dArous6xkS1sXp2+PGNv jEZ3rAB9dC7uOoYdXuJ8 NTqjC312UjIgpKCvIenz y0hro1fmwPc3JpGm OMRoewEifYxbNCS7h9Qu Qk52X71pFNjrEDNhKWMe KWKcEJHffHthsv9hlQ7i Ii8+HO8jc0rchw94 vX37hVO+RKKtVPL4dBgh UXflOHKtpB3cOBvvWvA7 OJTlGaYvzZ11mLDkAKcc Tx7umVrquQqoPB1l NVIkrqxhr105ClLtk2md HIBiyLYkZCrlCOX5P25k x2E6TWIoRLAxENE6sLJ8 lB1jvCyzfvtwuVKl dDsgdmVydGljYWwtYWxp C223JNSmdIcnLtFvjGSs O2hpfqWCLY8aKznwkBW+ MDNtCXB7pTccLZuj SKFhsP5fDVBcY5u4VkGf WrH2MHjdJ9HgffM4TIPk wMJjQPJgtSIBpD5akope u2wrohreFfIvVEEu PCr4FIx4VKOrhVysBkQa BDY2RkF4WSW8rDOhzN1a yGacnvercX5lPuf+RklO OjwvdGQ+PHRkIHN0 kFpqTHseMTEfpX0nLFUs Z7p4FaQfXcQ6VOsdK0Cs eiW3HBScaNUbOTXjlLFN rO1vjxqer1gqvjqj AqBjKHWkOEn1ENy4KDVz zUuqVmMzLYU0XqM4VZK7 cSGzhZ8tbJolvgzguS2c Oyc+TVJOOjwvdGQ+ UJQkVCA3lMypZYxtJARg mF9mDDPyE1h3WdKfWnZ7 CMnqK4UbyoU2SASesNAn THCljBINeR3tfthf x3hqfnsuXdLhVBPgRNn0 OJc5KRPgkJyzFuJqLME7 QlP9ZWK2wIBdmG4xqUyv xgzbtM8dBbm+UGF5 FLW9WI99JK17Q8RlOfhw dGFibGU+PHRhYmxlIHdp ZHRoPScxMDAlJyBzdHls LA7xPe4kAACkJCTj bGxh (more content not included)... Normal [facility] Consent for Treatmenton 11-25 Consent for Treatment [id number] 30 [id number] #[id number] Normal [facility] US Abdomen, Limitedon 2022 US Abdomen, [...] MD Transcribed by: STEPHANIE Technologist: BETH Trevor [facility] Consent for Treatmenton 11-24 Consent for Treatment [id number] 30 [id number] #[id number]:[id number] Normal [facility] Family Medicine Office/Clini c Noteon 11-29-2022 [...] When Contact Information Shanna Daniel DO C, [facility] [address] [place] [address]- Additional Instructions: Patient Education Cholecystitis BMI for [...] Alcohol Use, 04/25/2020 Employment/School Employed, Work/School description: [employer]. Highest education level: University degree(s)., 05/29/2022 Home/Environment [...] vaccine 06/27/1999 Recorded Date correction Normal [facility] Comment on above: Result Comment: [...] care after the procedure. Medicines ? Take omyp-xjv-ofzhoxa and prescription medicines only as told by [...] 11/10/2006 Document Revised: 03/19/2019 Document Reviewed: 03/19/2019 [employer] Patient Education ? 2020 [employer]. Nutrition BMI for Adults Body mass index (BMI) is a number that is calculated from a person's weight and height. BMI may help to estimate how (more content not included)... Normal [facility] Coding Summary.on 07-17-2022 Coding Summary. [id number] Gh0bWw+PGhlYWQ+PE1FV MLuD28qjJKqdZ9DJ3jOD F2RWDVJTZDPAT5HOZ0qs MJ6PPdqL3UbwhRy QvsxrQItNG73PLx4KPG9 zAyuVEzxoU0kpLUxV1b9 KgXmYY43aJ28CRnzOOZb YeI8JnZlyujysZRz R9tzNkShaHFkPjy+PHRh YmxlIHdpZHRoPScxMDAl BxTyyBooND4kNf4aYVEb LWNvbGxhcHNlOiBj s5ywPDMiAFofCR2xbKfo D5HkjUR0TOAnr3d4Ro52 dHI+JNYhDZZ8dCzeNSxv i596UxBhw5huXJB5 hMQzXTybIVB1T99zn1J0 OENgHPMmGXI8iJV6lA1f yNrwzuniD1YkqZUbGnM5 BAS9vZFotD9qcUir eanatS6mQgk+V10XPB1W QSUCBG6LBum4N9XcKeul dHI+GI58VSAaBY27sMJz tXRhb6wlbCi8EmJn ECOrEBQ6vOpzSBzvv7Fz SFIjR48rjJCjt5M8BPRn vPfgdKXjHvVbuJS8iN2j WSszgcbrq4rqrtgv Ahzjc1uuac67jZ36A53a LNliHIOfIKB3JHXkAASz yVpkiu3qwJ3nYe9+IDxj y6trp1aneJb3UqNz TSOkfbMtwVoaNIH3m4Aw Qn27T1SzeIyjz1VyWcg9 au66rAEqm3X1cGR3AZja CYYwdN3pEOajQpV3 AAZfCfJtxA97xWRxCGyy Kc6mlJefkWetPV3xQKKk bqkuTZWbsE1pXVMefAXa xWttQQ7zLJSgwplb a093BkScPHL8FLJznKIy O9PoxX7tPpWjYWOuPRQk J0WopNUeGFmwA564COgv ZeG1KGJcfyJhJ4Ip RANawMqeIpX3y6G2Vz2Q h8HeddhsEYK1DBsuJZR9 BcT4TmCtJjL8Q9DuCvr1 VAGtzYjxBQ5mM6Ox DURwmphhlfyejYF3ETCe XBXltD72hYQgHIvlXq7j f4T9l587DLRnLXAikT04 Dg3zvKhxYROfqOWU vL9rhdrby4wnnyxeTkQt PITuHDh2KIq2QJOubOmu IvLnTTV6DtE1DAI7fUFu mP0rdEuudsnzrZ2t Oyc+M06phR8qOKW3XDP9 qnemHPJipcBtGX17BH21 W8NnTttdmKMfsLQ+PGRp chEghTrbAH5wDrCt k5yqh9UuXIptP1VdOTUy KLfaIrs5OAArVHE5xWI9 zA1bFFHwGFoiq1R7xQE7 E7IttgYfhq1zl9cw RLQaUZzsF30amHDrz5V9 SFUyeTL4XTTkdXerWcIp dA62Trm+XFEdnLyib0Py Yqrbi8smg9zwcAc4 IjMwJSIgdmFsaWduPSJ0 u1QuRm06X21kESjmVVPt VARhKXElVTJmeQaglj0t vC4gHz8+PGNvbCB3 wWX0hU4bFZNaZyV0NUle O664XjXecBQyHsisd1dd k3rbkCd6TtMvSVQiujZe hAgxJWY6g7CmXn11 D37eKXxcLFSrMODoRSSi PANllGqdsi5piY2kBs6+ FN1rb2ncrv26vD19zBN+ QTVeAGJ5wHlzITvq SSSphH9sNEglTkJ1CMAe KfFxxZ61yPTwWXqxIo7u bYcgqQhfKS8aVNBgxfbx e740OvNvo0fkLSSq tNCkZPvfCMG2K36gg4S2 GEQfVOCrSTW8yBS8qV5a bGlnbjogbGVmdDsgdmVy mKmjVZvbRFejR604 IHRvcDsnPlBhdGllbnQg MhSzNXb2N4RgKgc0CQOe pJaePN3xiSTxVFjqWx7z aLlyzBdrET4aQLTv qcoxq799ElVzd4ykRMIn oQGoXUzsUNE1K19xn2L9 GKWfEKFoVQD8iWQ0bQ6i bGlnbjogbGVmdDsg xxQkiWooGBmtZNclG653 IHRvcDsnPkJpcnRoIERh xFF8ZV54QG08cTGjr8Q3 lGT8E2VeGXTjbztd krpyaPA3UFPaGMYodV18 Hz1gsKcgZo6wTUAaRWG2 BSEtaZRbU1JsuD1hHzVh JCJjMNElS4UemUQv VDtbP427JMkaUtZ4SVZv hdBfR9HvQEGcsSnuYeG4 c2N5Bo2VG3B9AL02ET94 bDBkd1D4fXU4H1Ap HDNqrnxmpbmeyPT5IBNn VOLwhI35Nu8ktBhgYn5y GDYvXOY7MPRvwRVlH6Je zN5eWfOqCHOaAURj C1RdxCOsIAeyA708OIxn WdX4NVRiwxWtF7UcUKTr aThlJaX2v1P3Qe7GCCf1 NI48EZ30bDBzt6L4 nQG0V4GmPCBsjvasbgwr jIS5MKMeMXNtiT04Ki8t ySatDy5aKBIzGFQ0SHNe zNOhN6GvnU1mUiQi HSTyOJAoD1UdsZUwDDrp Y302ZZtdGgN1JXRvpuUa A9FoADWqnGdvVbO1i5B5 Ed3QVKRfPH08ZIM8 aMK8LZ18XT49K9LoAnru dGFibGU+PHRhYmxlIHdp ZHRoPScxMDAlJyBzdHls CW9fKb4pXNEqKKVe vYhqyZUnVzKqq1knSKEm TEmtIQ2wuGckX1OlxAS9 VGVcs8z5Hg48C07qY4Pj dXA+IARrcDA0rAE0 aT6xHgRfHrL1YVwxA337 SwUwiEPmRpktq0jmi7zp jFe3AnS5DMLsbiLccCzm WTZ1g6EsMz80C67g IHdpZHRoPSIxNSUiIHZh lDjpfb2tiM0lSt7+PGNv bIF5bGW3jY5bYaUcQeO8 BOkxP974MwUzhYJm Ktivy5ggd2xxxMd6BfYb VGYlxcHkrTgwQVY3j5Qd Nl33R5XqvEkba4FvTvr9 hb56tGLny0E8kVC0 L5HdXJZdgpzaaJCitIdg EH4dYNEpcngyDIZcpN0r DGQjP5q8UqPcBdF1FAew M4NizxE5FYVphNMb LBpmTHW1K85lz1R0CHVq GSKcTKF3wAZ0cL9mfJul bjogbGVmdDsgdmVydGlj FFfeCOjoE940QHZh mAclEUAqjV3qTLFrwKJk uYekKL3yHJOvwyowUfWI Da1IIjkrI5COCDCOLFJb TTwvdGQ+PHRkIHN0 dWtfCIwbIRZhqZ2lMEWk M0w6HwJiHqY1AFxrH0Te DWWsrttcOp13rF7rOpPa MbG1XKbbE1DoswQ8 VVKznXQvPQyhAUO1G66w i4H4FLKlKAChGZR0dEB3 kH1lhSkcbxzudOCihXbr dmVydGljYWwtYWxp Y896DIVphIcyNnEsUtQ1 CiW0GQq8A9FtOvh2JKIk gBziJZ3yrAAePZviHb7f oFcrwNaxPM3nEDNp cplrESUhbC7xGDEiuAQn jLzyJH9fZXVtwputv677 SuJfLLK3DMQayGDgT5Dx aV7eLuDcNYTyTUBi N6PhdZEkZTmeA453GTye BgA5QUZpmvQcB9BoJTVu kIqsPaR9t9L3Ag1wUDAC ZWFyczwvdGQ+PHRk TRJ6bLasJPtrGYAlwN2b BATcO1m8QpOkVvT6YKop Q9EoJPBkbterBs63bK8z AgZrOaI8IJfdM2Sx afC3JVOjxRZkYTgcHVF0 Q24qn2O4BLOaFVBvWMZ2 pPD4mH1qcCfbzjpdsENk dDsgdmVydGljYWwt QNewO587HBOboIofZxUc bWFsZTwvdGQ+PHRkIHN0 pJilPRuuZOHqwE4mFYKh R0l6MgJpRqU5RMxj I6WvBEEcnapcOf43zJ5k FsThPxL7ZDbcT7IrmaM3 AZUjlXMlCGiiYDB7B49g f3P0IKOeLMTcUUF0 hUU7kR4paZbqmcmrjLXm dDsgdmVydGljYWwtYWxp U907NUBoxZtiHhaaLiXJ xn2yGF9mNckezGI+ BB01tq45I6VmSwvaBhz6 EAEgDHH4pDA7dX5bZEIx XErkb6A4bVA8B3EqkiZk fe9cl2inGQOpYFmx A42gqETsi3I7RQGmkKH2 CTYujLbxEsYboV40Epz+ JGDvnAeus4XwRrtyf7eg p8vksNo8FvBnDJJr fdTunNpfUMC6i5DoYy38 O69hMDzkKTUrACJvOFCq JVCuvFiefq5ykP9uRh5+ HDMmhMX8mBU4mP6f PyGfZrW2GChvQ085QnMs bERzKkzak9cdy0kkyEk3 IjIwJSIgdmFsaWduPSJ0 l4UgOm02R0NoeWso u0DgCvf7ec21qBFsu4Y4 xZC4U8SsCHDqubzzfKCw vTorDP4rFPZrworhMNXp uE4rGTSfE4u0LhYq GwM7DXxbB5ZuabL3ONCl xQFbZQKapTWSvY0rwftl v8bsgdphDaXaXNXtWUc3 NDq1UXKbjQvsLyDb EKA4LyS4BAZ2eDEkfX2e oYsubymatX1fZkj+UGh5 a3sbfQXwOA5vrFY0YL46 TT12tRSug5O5uXP4 C9AkZWZvpnjvsbfrpQS7 TTZqABWifJ86Lp4keKbf Du1zEWMtUAP7JPMwuRQo Y2FpgU8gRwVmYPMc YCOfM9HilOBiHWjuX099 JQfdNrH5ZJGzqhLuA8Jt BVFdpDqyOcD6q2J2Tc2E BX72ZH10XI55yRCp j2F3tZU1B6IzIREijlwm pcousPK5WTUrWVQhiD54 Ap5sgVjvGz6uLPEbZOB1 WPWteDUbD2KitN9k YxIbJZEzCDXmM6YgmXKu VSkzW822VKliNqT9APUy ehLsW4CvFECjrRgiRlU5 j4P0Se7AGc36SN41 OG54qJSqt1O2gDA1B0Rx KTTmuiwrulxshZL0RCAq YGUsjX79Ti7afJloBs4a UDHrHUQ8UOMonFBb N4LjfG2bKhKoJZYxVQGo C1KsfBUmJYoeP372MFbd VvQ2BPLeatZtB3VkUQCs hAxvZcC0o1D7Bb4D YYtmvbh2D0FjIeebxSD+ IG33FBCyOL35bRCerLGv v7aaiJe1XlMxUPLiNGJ5 dYmzRWcxw3FeFPUm Y29s (more content not included)... Normal [facility] Lab Miscellaneous-LCon 07-17 Lab Miscellaneous COMMENT Invalid Interpretation Code [facility] Comment on above: Result Comment: Test Ordered: [id number] IGP,rfxAptima HPV all,16/18,45 IGP,rfxAptima HPV all,16/18,45 Note WB TESTS RESULT FLAG UNITS REF RANGE LAB Clinician Provided Cytology Information No. of containers..01 ThinPrep Vial DIAGNOSIS: 01 NEGATIVE FOR INTRAEPITHELIAL LESION OR MALIGNANCY. Specimen adequacy: 01 Satisfactory for evaluation. Endocervical and/or squamous metaplastic cells (endocervical component) are present. Performed by: 01 Maru Dong, Insurance Analyst ([facility]) . 01 Note: Note 01 The [...] High,A-Abnormal,AA-Critical Abnormal Performed at: 01 WB [facility] [address] [place] [address] Terri Cantu MD, Performed at: [facility] [address] [id number] MD Pepe Murray Performed By: #### 1 [id number] ####Elio [facility] [address] [place] [address] Lab Miscellaneous-LCon 07-12 Test Code 048886 Invalid Interpretation Code [facility] Comment on above: Result Comment: Test code corrected. RS 07/12/2022 06:39:13 EDT Performed By: #### 1 [id number] ####[facility] [address] [place] [address] Test Name IG PAP APTIMA H Invalid Interpretation Code [facility] Comment on above: Result Comment: Test code corrected. 07/12/2022 06:39:13 EDT Performed By: #### 1 [id number] ####[facility] [address] [place] [address] Physician Orderon 07-11-2022 Physician Order [id number] 26#1.00CD:127 Normal [facility] Reference Laboratory Testing Ordered By: Klever Peralta on 07-11-2022 Test Code 447242 Invalid Interpretation Code [facility] SendOutsSS Test Name IG PAP APTIMA H Invalid Interpretation Code [facility] Nursing Assessmenton 022 Nursing Assessment [id number] 5#1.00CD:127 Normal [facility] Coding Summary.on 06-03-2022 Coding Summary. CD:[id number]:[id number] Gh0bWw+PGhlYWQ+PE1FV MKtG60tzAEjiV1FK8dSF O4RYHKDSAKPMP4GLR9bd MA0JQovE3PlsaSu GlivsVGyBH91CAc8JHM5 fJiwYJuwrA1phFEpG2h8 PxDdIP08zI76CFnkYDAv PjX9WhZmbeubsQEf Y3smGfMulVOxKeb+PHRh YmxlIHdpZHRoPScxMDAl YmXccUimCP0eCc8vIENr LWNvbGxhcHNlOiBj b3ifGTQaEXrdEF2glNfw D1FltJC6TYSex8m7Oy95 dHI+EZEmAHX0mVllSXmt q952OcUiv8hvULE9 hLNyCTepFTI0A92nd4U6 AHNyZBZiBKB3oMF9qY8x tJwyizmoR6XmiZUnZgI9 TGI2oGQukK2kbFml mgjouY4rApl+K28KOA4B AQDLVS5ZVcm9F2KbKbzj dHI+FF61JLSxCA53cJNp jREmf0oklFu6RtCv SBYkRTY0rNunWXtwj6Tp XWVlP14cuTAib3Q7JKSa aGidoHWzQgTgtNC0sG9e WAiechgnd2swytdl Ajuqt0htnm97dE67X95q FKbbAMXwVXM5WCIeLUGj oDjiyd3kyY7rLc7+IDxj g8fee0lgmCj1GxYl EIVjjdTljVtiSOV3q0Mj Fw53W1DfoNula1ScZov1 qt08zSCql1J5oBA2ADxt XUFteM7tXPubFdM4 VLKhPkFpsJ09jVPaLRac Mj9fvBoawWfjDB3mKECz iuloUMGcuH6jWUJnfSRa cQbcPG2cFQJjshzh i442UpAdSOO0UPTjwDNq L5CahS2oNePxPRZsGNPc V0GqhWNnKUfnQ393VUni JdG8XJQzvdJfQ2Hx SXMsxPszSvV9e4S7Za2O s6TmrwrtFNX6XKiiLWK9 ZnKsPmJsXvQ2O1NhYzw7 OZYolBzwWQ2iE3Om PYSqckkeuxnlqGQ3EZZe TRVybR16bRVfAWwxHa6x r2Z6k798AQPxFYJsvW22 Hf1lsMqqEEHvkARI yY5meedmv5qjndisBxHm MPDdQDf1OYt9SRCytNiy XcLnAUT5RsM6ROQ3yLBj nY7pdMhnqgbfyM2i Oyc+B74wbG9tUJI8AUV8 klmdLOQpycDoGZ95PU85 F6OrGnvbzIEogWV+PGRp vrVsiUycXK0yQjRj r6evw0FeQFxyY4WrPXNu BKarMvk1UJUaRWY7zLH3 nA6wSFCdFZnbi0P4qMM0 D2DnukFuxn3qc6ig ONUkPKoqK11azMGff8L2 PWJzhCT5QHMoiDkaHvNe fR36Kau+HEKtqDlyd9Sp Nzpgi1qbf4cfxBg1 IjMwJSIgdmFsaWduPSJ0 x5BeGh80H17qKXxsDVQk INAvSDUuDYNzqTioor0s gH4rTj0+PGNvbCB3 eRI1gF4sIRHgPxV5UOcd P186KxOxdAVtXtayp4zt b2whiOj4IdPlTDTpzgAq zJxjIUJ1t2ZzRu24 P25iMGoyKHQpTVPpMXVf UHRzpUegly1slS7hFx9+ NU0wy0pzpl62uM97xGM+ RGFnPDD5oLtcDShn BBDhnI5kRLmyWaM0FIGi VxRfpL35vDVcWDeyHb0u fVsulQfgBA1lXFQxcqit t055JdLph7rkPMDw lFYrCHobAKO3F88ma4O2 MVJcIOLiFDH3eMO9wK7e bGlnbjogbGVmdDsgdmVy xUvnVMcwETmoE657 IHRvcDsnPlBhdGllbnQg YwUpIKh9B6CiLha6VDAm hGiiNT9ztUNkKDapDi0r rUghiCvjFX7yFERt pknrp272VhBjy7oiRGUu lIRzKToyCYO7J65qi8K3 VUBhRVIfCCF3zGP3mW7n bGlnbjogbGVmdDsg lgIhsYhiYBnlYIjjV638 IHRvcDsnPkJpcnRoIERh aLF5AC56NR72dNNfp1L3 eZH9O4YzWKWmpccp jsgkaYO4ZUEnJHRruY68 Tp3sySvxFn5zMBMoAWP3 PQJbqJOmN9CbuY8zKnZs ODOhWRLuL4EabRLq YWloF191SAtyAwV2EZMh snVwS8AuALKavFtsPmV6 s4T0Bu1AQ2E6CV59LR13 zMPoc5T8gOS4R9Do VFFwasbcjbflvCG7ONNy MWGgxK91Ln9mkCpyVi7m TPGxVUG5CKRosZLuS7Gg hH1dPrTkEFXfHVHt D0PcrVIyFAlxR708UVhn XqM9WPNzlaAoY7HjQVRt uBnkDcK9q4Z3An1NHXo8 ET87ZQ64zUWtq2O6 mTN7N5SyVAIzkvemvbhj bBJ8SCYnDMDtaC53Jz2z bGytZw4xAZLtYXA7SBEd vTArV1RzxN7qOyWe YIVqAUNxB7LomMNeXUak Q881UBdoEsR2TLKqieBi S6PoHAKciXkhZqG4m1N9 Dz8IHUJaNF30XGX7 tDU9VO31JS45Q9ShWfur dGFibGU+PHRhYmxlIHdp ZHRoPScxMDAlJyBzdHls VE2aZf3eLGHwSFFl fXkzrCVyEiSur2ltRNSs NTjjUY5phOjkH8PzoFG7 PCLov7i8Ta01H84rK9Qm dXA+DDNfiVX3dGI3 nT7sNzKuFzZ4IEqeK257 InPomZWyUaedi6acf5tm cQb7UvM1PMXubcEdfHts KAF0p2AqQb66I86j IHdpZHRoPSIxNSUiIHZh oBcvni2leA5zAo5+PGNv vZU3vEI6sS3yQlOmNhV9 DUpcJ537UcUsvSMy Cgpky6lwb9gulNz7ZcWc DZSjchFfmUqaYPC2f7Ov Xx55P3NajNeoa4SqOvq1 hi34qCKsb5H2mIO1 K0YsGTOkrfurdZZnbKgy WS4uOTDvhsboWICemB7k HZWrE3g2QjNwGzD8CBnm R1SedrV3MDWszVIk UMwjBQF8R23je8C3IKIc LWOuODU4dXG7sE0jmRnm bjogbGVmdDsgdmVydGlj LRbuGCtmW660WWOv fXrgNTQxbZ9fNHDwxOSl iPgmXV7oHHWwulhoIeSR Zl7EYgqqO1ZZDBGNZOTv TTwvdGQ+PHRkIHN0 fUhuLGngXDQqaR3hERVj K3d3IaMmZtN0TPksD2Rz JGZduljgPf90kS3eAaKv FbF4ZKhpJ1GubqQ6 RYUshTVjITfqZEM9W85v h5Z6ATMoJHRmNQP3nMU3 hR4oyLtfejfqbCRkbWal dmVydGljYWwtYWxp W968AALgnNoxLmAjJkV1 MjD7TGc5E7RiAbj2IHAg rJmfKG0axCLgEDptCf9h yVyftJwhOG0hOCPj tzpvHIAzbL9aGEJlgELr iDveGI1xGDDsceluq481 OeSyPHL4NCRwxYUqN0Kv qF1tBhMbTBUxRQJn T3HecNJjXJtbY592CDaj SoW2MSGyfkHvJ7YkDRJi hEiiHoL0r0S9Fg8oDAVF ZWFyczwvdGQ+PHRk XPJ8cGhdQTkhONHfmM1o NIQoL3r0MsYgVwI3BYwe Z8FwRTUukmwdNn72eS2f EpOzEgI7OMkrS8Np koZ3GYQfvIWgJXaaWPI8 T78ta0S8NKLeAUCvFNF4 tNU8uD6zwFbfitaskWRg dDsgdmVydGljYWwt DGmkD869XXQlmJyyIpUa bWFsZTwvdGQ+PHRkIHN0 kTkuJVycLFBauF0uEYWa Y7f2CeVgPcO9PFzd Q8RkFOElnabtBc65fW6i AkOyYtS1IEkqO7SylhG7 QCGnkXSvGYxxSTN8T16c d4Y2LDUdWHJwEJZ6 aVS9qD6okJmounwpdBQz dDsgdmVydGljYWwtYWxp U785BHAclLtmVaateXJ6 aWVudDwvdGQ+PC90 fi15L7XtWdumOpp4SWQd TGA9nRB5tT1sZLKpGGsv v6L7iXM7G6UwfbXcec5s r8jrVSVkSSupF86a wDQne6J8YZXrsFH3BFYc rVbdZhVjlX54Bwx+PGNv nPspb7AmLxudj4csy0si uGv8BzRlBSJgkyPk wXffMAA5u5EkGk76T77e IHdpZHRoPSIzMCUiIHZh lPfedw1hsR5aNs8+PGNv dAD6xUZ3rT1fIzHk QtH1QXljT349RzIzvDPo Ulfpv6dgb7rzvNs0JlRk FFJlarQyxCaqHCE5t7Lt Qz56L5ZheEdpw9Zv Kyl8rs37iNWze5E8tPS5 C9OqEOKklymjvHHxpKvc IL1qCOGgqogdKBCtsU1j ZHFvH1h0KcHrFyP4 FLisG8PlqjP2XIPxkTCy WZSicTOQeK9tnvluw9dv amvwMdWnXFBiSEg4BFt3 LWFsaWduOiBsZWZ0 TlV0QPO9mWYntW5qvKty iiwfqV9pNma+DMr3q5ji dMNrCQ1vtMZ5HC26CU52 eEUmb7X0dRP1F3It HMLohhtrzpfgfOC7VWZl IBKwjI06Yn1ryKozAm3k QWOzVAN8SSVeaONxE6Bb mE7hGvSoQWHeRCDd E0IpiKKiLHctO579XIwq NtV6AKXqdoLrH1DdDRXb gCauKzX8i2M0Cu8EWU67 QJ70CK16rTOyu8V6 mRG1S9TeHGNurmthnvlb aZL2UBQuIETrxL81Vu3z iDybIb6pLQPoKEV4YDEy uRObD5QtdT5lMpJz ONLcWUZfE1MriWXtNWdl G259ANcoUrE5ZBTimxVi U7PyZWZtpAdtXnZ8o6I8 In0USk88KE44MK74 xGTgg2X7cZW7X9MjPPKx fmhsayrhvYP6ZVHrLXBu zL90Ur4veZlyPd5jPHCw CBU4XQOxzOFxT5Cn zH2lLjWcBDBcMTPiA8Tp eEBoFCdaO706ZShmFaU6 QRSdbqBtG8CqWOXeiZib RxG1s2V4Om0UGKao yqu3Y1NrBbbffOK+PC90 TFLtPL99qVXdkVEfs1wl cPk8NmAlKFQiEDU3oSic UXlyw5NvPOFbK03e bGFw (more content not included)... Normal [facility] Nursing Assessmenton 022 Nursing Assessment [id number] 5#1.00CD:127 Normal [facility] Delivery Summaryon 2 Delivery Summary DATE [...] the room. Devin Pereira M.D. Dictated: 05/31/2022 [id number] Transcribed: 05/31/2022 Normal [facility] Comment on above: Result Comment: Elec tronically Signed By: Kelli DEMPSEY, Devin Collier\.br\Date and Time Signed: 06/02/22 11:12 EDT CBC w/Indiceson 05-31-2022 Erythrocyte distribution width (RBC) [Ratio] 13.3 % Normal 10.9-14.2 [facility] Comment on above: Performed By: #### 2 [id number] ####[facility] [address] [place] [address] Hematocrit (Bld) [Volume fraction] 29.4 % Low 34.0-46.0 [facility] Comment on above: Performed By: #### 2 [id number] ####[facility] [address] [place] [address] Hemoglobin (Bld) [Mass/Vol] 10.3 g/dL Low 12.0-16.0 [facility] Comment on above: Performed By: #### 2 [id number] ####[facility] [address] [place] [address] MCH (RBC) [Entitic mass] 29.0 pg Normal 27.0-34.0 [facility] Comment on above: Performed By: #### 2 454384 ####[facility] [address] [place] [address] MCHC (RBC) [Mass/Vol] 34.9 g/dL Normal 31.4-36.0 [facility] Comment on above: Performed By: #### 2 [id number] ####[address] [address] MCV (RBC) [Entitic vol] 83.1 fL Normal 80.0-100.0 [facility] Comment on above: Performed By: #### 2 792016 ####[address] [address] Platelet mean volume (Bld) [Entitic vol] 9.5 fL Normal 6.4-10.8 [facility] Comment on above: Performed By: #### 2 268657 ####[address] [address] Platelets (Bld) [#/Vol] 192.0 E9/L Normal 150.0-500.0 [facility] Comment on above: Performed By: #### 2 336593 ####[address] [address] RBC (Bld) [#/Vol] 3.5 E12/L Low 4.3-5.9 [facility] Comment on above: Performed By: #### 2 [id number] ####[address] [address] WBC corrected for nucl RBC Auto (Bld) [#/Vol] 9.4 E9/L Normal 4.0-11.0 [facility] Comment on above: Performed By: #### 2 616836 ####[address] [address] Discharge Instructionson Discharge Instructions [id number] 0#1.00CD:127 Normal [facility] HEMATOLOGYOrdered By: Swathi Weir on 05-31-2022 [...] Inpatient Clinical Summaryon 05-31-2022 Inpatient Clinical Summary [address] [address] Clinical Summary Person Information Name: NADJA RAJESH Patel Angy/[facility] Age: 26 Years : 1995 Sex: Female PCP: Shanna Daniel DO Marital Status: Single Phone: [phone] Race: White Ethnicity: Non- or Language: Maltese Visit Id: Visit Reason: WATER BROKE Speciality: Acuity: 1 PP Enc Type: Inpatient Med Service: Obstetrics Arrival: 05/29/2022 07:02:32 Discharge: 05/31/2022 15:30:00 Dispo Type: Home (Routine DC) Address: [address] [place] [id number] Provider Notes: Diagnosis: (spontaneous vaginal delivery); Shoulder [...] Follow up: With: Address: When: Dr. Pereira [phone] Within 6 weeks Comments: Call for any problems. Support Group first Friday of the at 11am Call Dr if fever>100.5 F, heavy bleeding With: Address: When: Services [phone] 06/03/2022 2:00 PM Patient Education Information: Normal [facility] Inpatient Patient Summaryon 05-31-2022 Inpatient Patient Summary [place] [address] Patient Discharge Instructions PERSON INFORMATION Name: RAJESH SAEZ Date of : 1995 Current Date: 05/31/2022 15:48:13 PHYSICIANS Admitting Physician: Devin Pereira MD Primary Care Physician: Shanna Daniel DO PCP Comment: Discharge Diagnosis: (spontaneous vaginal delivery); Shoulder (girdle) dystocia during labor and deliver, delivered Condition at Discharge: Stable RAJESH SAEZ has been given the following list [...] CALL 911 Home Treatment: Devices/Equipment: Special Services: [facility] Additional Instructions: Physician to provide the following pending test results: None Follow up: With: Address: When: Dr. Pereira [phone] Within 6 weeks Comments: Call for any problems. Support Group first Friday of the month at 11am Call Dr if fever>100.5 F, heavy bleeding With: Address: When: Services [phone] 06/03/2022 2:00 PM In the event that this physician does not participate in your insurance network, please consult with your insurance company to find a nearby participating provider. Comment: NADJA Jain CAMIELLE M, have received the attached patient education materials/instructio ns and have verbalized understanding. Patient Signature Date Clinican/Nurse Signature Date MEDICATION LIST New Medications [facility] [address], [address] [place], [place] [address], [phone] ibuprofen (ibuprofen 600 mg Tab) 1 Tablets [...] to serve you. Thank you for choosing [facility] Normal [facility] Insurance Correspondenceon 0 05-31-2022 Insurance Correspondence [id number] #1.00CD:127 Normal [facility] Coding Summary.on 05-30-2022 Coding Summary. CD:[id number] Gh0bWw+PGhlYWQ+PE1FV OPoS85soDQmpN2KX9iUH I4JMUVXXGYRMD0DLN5ei DC7OVzeV3FyrwRg HxjreYLjDF08FSf9JXP5 fQhjVPkrkU6rjBKrW1i9 JgMdER17uC40ZWskIWBs ZvV9EaQhczsgqNHw G7apRtRqbDNqLuf+PHRh YmxlIHdpZHRoPScxMDAl FaGsgZetYA9xZr5kEFOg LWNvbGxhcHNlOiBj x4tvTUSvXLprOD3kgDib W6QosXO7SQUzq6a0Gd80 dHI+LPYvSCF9sZseWPdk r436KbPyu5byYYP4 lKMcUGdpXMK9A46nn9H5 IRTsBTNmCUC5wQJ9rR9m zVvdnbdhW3OxfURzAjS0 KPF3gIUdkN8ymWbr fpdmlY9bMfh+R02MRZ6B NECTCH6LNyi5I8OnZosh dHI+KS61PIIxNP02lTLj qVPpz4ozbUv4WdCb KSIqLWY8wQfxAVnpb7Gc ZWWuF19ajHIux6K2LJTp zTsmoMJkXsZhuIM5gT4a HWvkdmbfk5szfncm Ulebt6vqel09tY21O77b RGnwYVRvEGN0IHRyJHVz nTlhga5rwO5bJt0+IDxj n5ldv6xyxAf5DoUg ZHFqblWjwVcoLNI9j2Mp Av94W7BeyDdrz3GnFkd3 ud64mOZac8F2jXB5DBim DXPldS6yIVeeYhT7 WSYjIfQnyO12sKMxGAjy Us1pjWxknVvkQT7jNVFf raxoEVRreZ7wAIEzmVPo vVrbIS0xWYPsdagk l290GqZhFYK5AUQuiUYv B7YkfX5xRhKhPWAcOTLr B5QcuNAkLQhlH294ZGkt MeR9HVZqxqMtI4Zv TBWadWvjDoC4z6P9Nt1E f7LzcnglBSN9WBroUIH0 IuS3QuDlLnJ4K0HvSvr6 RWVcvEtrSB3vA8Xs KCDutjcixjbzvAU0NPIn BPTigC51jRCjTZcgMa9l r3Y8x790SBYzFOHdwC31 Ic3yePraOGUyyUWA kR7yygydq4fhdpjiZrUv RQSqTEj5BUd1QTXkkQjj SiXqLRW1JdF3FDM5aFGw kQ4myHyrugqlfM5e Oyc+Q00ruL2mYSU0UCY8 mnccEPIviiHgFL22RO30 D9EpCdsfvLMnwAG+PGRp rrDnoXhvHZ2pRaHx t7qty9EoFVsoY9UaBGTm UTfsEvz7CXKmPVK0yRS3 hR8cNPQeSZimz9Q2bXV1 S9JxogOijv8ii6db NCAiXRzwQ94poEYjb0J0 VARttAN5ZVMlvTfjEwQm cH50Qss+MKInsWcpm6Uo Mvzet9gyc5jrlBl9 IjMwJSIgdmFsaWduPSJ0 w4CeNl33C44zRHztYQSn MZXwDNHeLGNlvJeraq3h lM3dQi3+PGNvbCB3 kWE8lG6jRYGyMvQ2WGft E292NlGxtCNlVxlfr3vx g7oqwOg4TbKmSRPhpjXi wMmuJIU6u8CmUt69 V87yEXffVZFdZBTmHHBh AIWihCyvqw1mfF6hBo5+ PO2rx4gncy03uQ85tZC+ HTPtKQT0pHyfTBrn YREudI9aWOwlSoP6CSTq OyCytY54uYGeBRsuJq6i vFaqqEjdTB6zFRFfmalr u276KdSti3xdYHKr gOJhYJyjOHM1J39jb1R1 PDPqXYHsQWS8gDA3dC4g bGlnbjogbGVmdDsgdmVy bFrqSJpeAGazO097 IHRvcDsnPlBhdGllbnQg DnGcBNb6O1JeDbz4VUVa dYknDO0bpUJlNZpcQg0s zOrzhHtmKN4fLMGw rievi655AlGql7jgRJJg eSCiCMmeRUV1G61tz5T3 RPYjSPCzBFC6eUA6lS2q bGlnbjogbGVmdDsg zgYawPphKIibZZpjH879 IHRvcDsnPkJpcnRoIERh nZV6WY99TQ20rJDte7M3 nTR4P1YxVSEluhpa fvskvIB8ROIcVWLnsH41 Kt2gfPjcZc1jODAfVDZ2 OVPerQKeW1UhoR5rBzSs DHQtPGDfF7ZxdLHy FHrdH466TJjaAfC6UPDn iiPsB7YcFCBubVyqNyM8 x8J1Zm5TD9K0SV90UQ63 fMJae3I8dWY1F5Nf WLPczawjlvsvwDO1WSRy GFLdjU59Sd6ilWwfAs0b TKIhKRK1WWIdgVAtZ2He tB0dFgHsEDUmSRBx S3OoeAZqBOygQ812GPrz WuF0VJTsxxNpT8ClKKDi bTiuAiA9s1C9Pd3KVMn3 EP73IM50sQAkl6S6 dJX7G0SyHRAtpekjwusv xGW1RYTsGKNnoY89Pv9h bQoxVq3cIRIhYTK9ZMFs mXFqK2IssD4zPaVh LZBmRQTaX0JbdUIsRUtb M383EZiaWqA6DYCnzmVa O3RxYPGzbLyzQmY8o6Z4 Vv0HPGAqEY42DFO6 tID1UG54HL27L4OvJibt dGFibGU+PHRhYmxlIHdp ZHRoPScxMDAlJyBzdHls AZ0mJe5sJCQbJMFa hUgywNSjDmLot9uvEVQv TQzlEH7xkUmiB9YeoQP8 XOCla2a3Dk97Q00cX5Kt dXA+HRZipLM1zXY5 zM5jMsNmNoU9IFkiL692 CkUheZJgIpucr4glq5fe xHp0SnD6JYIiqiHmkPdg ATH9r5IxUt53P95k IHdpZHRoPSIxNSUiIHZh qAmbpj1wnT6lDe4+PGNv kDZ2rJH8zF8fPiDsDfX1 LWfjQ165ZjBlkEGc Iqgem4mnq8gnvWv0SaQx LSWyezQfvKdfRPV8g8Cg Xt67N8BftZiwy9JvEcx1 fr53wMHgu0G9wLB3 H4HzBVYsrbfabXWvcWbq QD1kZSQzjwopKEKorY8b PYEfT3r2RvBhHxE5ZOwd F8QvrqN5DOQoaQYa MCkuUZP6O88zm5B3AYJy BSCnASF9aEA0kQ7uiEfn bjogbGVmdDsgdmVydGlj KSntNYdeK345WRNe wQrfOKYubD7mVHXosAGn jBynVF2vIWAfflwfCgSF Nf6NHdupA7QNWUVKARRl TTwvdGQ+PHRkIHN0 eVlhTNciQVOfpI6iBXXy S5k5CjBuLvL5AFknW0Tl OBTatncvKu96dY8sSxRj OmY5KFfcK6BtnmC7 CTPorDUfMQwrBIR3M70s p3M0CMLjRZGyFHQ3wEB6 dL9haYnykyrneCRrfWwr dmVydGljYWwtYWxp C209OPJyaXixTpZjXsB7 ItO6ZMb0G1IhOcw0DQOa eHhcTN2owCZmNTyyDv2a rNoncCuhCY3hMIYb kgxjBKUxwH7vHRRskRTq kUmbEO7fTCIomviut502 UbBfMIF9CBKbwGBwT3Lb sX6xSpYvQHKfLVPr O4HosGVaMBopW115WGcm EnZ7EYIonnYoV4IjNSUs iHlpJxN0l9Q9Xn1mEHZM ZWFyczwvdGQ+PHRk XOI1vYbjYCehBXRokT2w TOQhK3p4DsCoAhO6EMdl N8GvPMUkjgdzUv60eJ0p HwYgHkA7NYnoG2Ck ulC0LYWwzKPnPFumJYQ8 F49mf7L2PLOzMWFiXJR6 sMO1lV2moJnuspwcqTCa dDsgdmVydGljYWwt UNprS123PYNuiHyfYcMl bWFsZTwvdGQ+PHRkIHN0 hAtwFPgoOAMooW8nJTEk J7p9PbDbOeU7NLgj O0WmZOThwefaLk91uW8a JqLzJlL1DGgqT2EjqwZ3 ZIXtzSShSNcrIJE8V18j x2C3MHSzMJGeFHW5 kJN6bP0ovUzxyeblaIKd dDsgdmVydGljYWwtYWxp V963XIVyrSriCo5MCPLj aWFnZTwvdGQ+PC90 rm07Z7GhFetgOyd0ERLi ZGJ2rPR8eW6cAMDsQJtj y6K0kSR5C5QepxNyzu6x a7wsXIUuMPrtN15v kBXco5V8NUCaeTF2IWHe rWqtZeUlxK46Ylm+PGNv fMkwy7XjTltiy2ykl2bk zKq6LbGoPBGwtyJw dNokNYM2t5JqUm49N53u IHdpZHRoPSIzMCUiIHZh qPaxpo1nzN4uGb0+PGNv dBI3fFC1zM2xIaHt MbS4UYtbF484RbPiiTUk Eaxye5ojm5plhFd1IcWo BIVrlqLyoTnfLCW3f1Ak Kw03O5BoyAmay7Ul Xir6me92lFYaz2G5iMT0 V2NxOZBsttbxfDUmuOpk NA6bNYPhznayQSYgmA3n OZYmE1b7JbYiRhT5 YRqkQ7CpqfR3WWDxhFEh GXVdtTGMsN8pvnpop5nw grasOdSiEZAdUGb6ELr0 LWFsaWduOiBsZWZ0 VcP5VMN5oFNakT0jqEyu oxxltI6qPlg+CYp7u0bh mIYbVF5iqDQ2TV60CC25 yYKpy7K9zON4G8Ol MJMrnvxmtweifPW9TZYt MJAjsL82Fq2ylHwaNb8p YGJsRIG6UYMtpQHcY4Sk eJ2aWbMiOELcDSRe V2KcgVSnSFerV152NUdk TyR8BCUqepTbL0LzWMMv pJfpZnL0i1Z3Py2YAB56 LU37FI09tLKyo1K2 jPO0C9XgQHFjrpkygnqr eTU6RBIlEQQobS16Ci5w tTadOz0fKLFeTXH8DPJa hKUrP7VwqE6eKzFi PRSrQYCiK3RqfPLtMUfk B185MWpiClW4MLGwflJl I4ErBLAqmAwuInQ1w7Q2 Zg8XOg38PI58NU44 dNRgw0T7xFI0X1LyUKHk abzmxzzwcUF2FLKvEUCb mZ74Kb0glXfpIa3rESOz XWC9HVLlfOPcG0Ch uW0hVkSnAEQpSBFdN4Eu xHZoOYxzH755OJukTyK6 ZIQtprTeW7TsEIBekMdf JcK8n4R2Zm7BWNum pzu3M2YsCbvrwWL+PC90 OVIxJD92uGGlkPJzv3xy qYh1UfMiXMExQPG6iCwg EYrxy8ZqKCShO75r bGFw (more content not included)... Normal [facility] ABO/Rhon 05-29-2022 ABO/Rh Positive Invalid Interpretation Code [facility] Comment on above: Performed By: #### 1 [id number], [id number], [id number], [id number] ####[facility] [address] [place] [address] ABO/Rh History Checkon 05-29 ABO/Rh History Check Verified Hx Blood Type Normal [facility] Comment on above: Performed By: #### 1 [id number], [id number], [id number], [id number] ####[facility] [address] [place] [address] ABSCon 05-29-2022 ABSC Gel Interp Negative Normal [facility] Comment on above: Performed By: #### 1 [id number], [id number], [id number], [id number] ####[facility] [address] [place] [address] BLOOD BANKOrdered By: Alexandra villaseñor on 05-29-2022 ABO/Rh Interp Positive Invalid Interpretation Code [facility] BB Subsection ABSC Gel Interp Negative (05/29/22 7:39 AM) Normal [facility] BB Subsection Blood Bank ID#on 05-29-2022 BBID# [id number] Invalid Interpretation Code [facility] Comment on above: Performed By: #### 1 [id number], [id number], [id number], [id number] ####[facility] [address] [place] [address] CBC w/Indiceson 05-29-2022 Erythrocyte distribution width (RBC) [Ratio] 13.1 % Normal 10.9-14.2 [facility] Comment on above: Performed By: #### 2 [id number] ####[facility] [address] [place] [address] Hematocrit (Bld) [Volume fraction] 33.1 % Low 34.0-46.0 [facility] Comment on above: Performed By: #### 2 591558 ####[facility] [address] [place] [address] Hemoglobin (Bld) [Mass/Vol] 11.4 g/dL Low 12.0-16.0 [facility] Comment on above: Performed By: #### 2 842383 ####[facility] [address] [place] [address] MCH (RBC) [Entitic mass] 28.5 pg Normal 27.0-34.0 [facility] Comment on above: Performed By: #### 2 189369 ####[address] [address] MCHC (RBC) [Mass/Vol] 34.4 g/dL Normal 31.4-36.0 [facility] Comment on above: Performed By: #### 2 022882 ####[address] [address] MCV (RBC) [Entitic vol] 82.8 fL Normal 80.0-100.0 [facility] Comment on above: Performed By: #### 2 208166 ####[address] [address] Platelet mean volume (Bld) [Entitic vol] 9.7 fL Normal 6.4-10.8 [facility] Comment on above: Performed By: #### 2 [id number] ####[address] [address] Platelets (Bld) [#/Vol] 215.0 E9/L Normal 150.0-500.0 [facility] Comment on above: Performed By: #### 2 774241 ####[address] [address] RBC (Bld) [#/Vol] 4.0 E12/L Low 4.3-5.9 [facility] Comment on above: Performed By: #### 2 216171 ####[address] [address] WBC corrected for nucl RBC Auto (Bld) [#/Vol] 7.0 E9/L Normal 4.0-11.0 [facility] Comment on above: Performed By: #### 2 522793 ####[address] [address] Consenton 05-29-2022 Consent [id number]# 1.00CD:127 Normal [facility] Consent for Procedure/Surger yon 05-29-2022 Consent for Procedure/Surgery [id number]#1.00CD:127 Normal [facility] Consent for Treatmenton Consent for Treatment [id number] #1.00CD:127 Normal [facility] Discharge Instructionson Discharge Instructions [id number]# 1.00CD:127 Normal [facility] HEMATOLOGYOrdered By: Alexandra villaseñor on 05-29-2022 [...] - 11.0 E9/L [facility] HemeAutoSS Recordson Records [id number]# 1.00CD:127 Normal [facility] Progress Note-Physicianon Progress Note-Physician Patient: RAJESH SAEZ Age: 26 years Sex: Female : 1995 Associated Diagnoses: None Author: Jose Miguel Garcia Jr., DO Postoperative Information Post Operative Note: Day 2. Anesthetic utilized: Regional: Epidural. Health Status Allergies: Allergic Reactions (Selected) No Known Allergies Problem list: All Problems / SNOMED CT 746118215 / Confirmed Resolved: Anxiety / SNOMED CT 86933821 Resolved: Depression / SNOMED CT 021398885 Physical Examination General: Alert and oriented, No acute distress. Neurologic: Normal sensory, Normal motor function, No focal deficits. Review / Management Condition: Stable. Assessment Anesthetic outcome No post-epidural complications noted.. Plan Transfer/ Discharge: Condition stable. Normal [facility] Comment on above: Result Comment: Elec tronically Signed By: Jose Miguel Garcia Jr., DO\.br\Date and Time Signed: 05/29/22 17:36 EDT Progress Note-Physician Patient: RAJESH SAEZ Age: 26 years Sex: Female : 1995 Associated Diagnoses: None Author: Jose Miguel Garcia Jr., DO Chief Complaint Intrauterine Health Status Allergies: Allergic Reactions (All) No Known Allergies Current medications.Problem list: All Problems / SNOMED CT 632582783 / Confirmed Resolved: Anxiety / SNOMED CT 45059868 Resolved: Depression / SNOMED CT 110201393 Review of Systems Respiratory: Negative. Cardiovascular: Negative. [...] The PCEA was started at 1728. Normal [facility] Comment on above: Result Comment: Elec tronically Signed By: Jose Miguel Garcia Jr., DO\.suresh\Date and Time Signed: 05/29/22 17:36 EDT UA With Cult Reflexon 2021 Epithelial cells.squamous LM.HPF (Urine sed) [#/Area] 0-2 Normal 0-2 [facility] Comment on above: Order Comment: Urina ry Catheter Insertion triggered Urinalysis With Culture Reflex order by discern. Performed By: #### 1 [id number] ####[facility] [address] [place] [address] [place].plasma/Lithiu m.RBC (Bld) [Mass ratio] 0-3 Normal 0-3 [facility] Comment on above: Order Comment: Urina ry Catheter Insertion triggered Urinalysis With Culture Reflex order by discern. Performed By: #### 1 [id number] ####[facility] [address] [place] [address] WBC LM.HPF (Urine sed) [#/Area] 0-5 Normal 0-5 [facility] Comment on above: Order Comment: Urina ry Catheter Insertion triggered Urinalysis With Culture Reflex order by discern. Performed By: #### 1 5298853 ####[address] [address] Bilirubin Ql (U) Negative Normal Negative [facility] Comment on above: Order Comment: Urina ry Catheter Insertion triggered Urinalysis With Culture Reflex order by discern. Performed By: #### 1 6584575 ####[facility] [address] [place] [address] Clarity (U) CLEAR Normal Clear [facility] Comment on above: Order Comment: Urina ry Catheter Insertion triggered Urinalysis With Culture Reflex order by discern. Performed By: #### 1 [id number] ####[facility] [address] [place] [address] Color (U) YELLOW Normal Yellow [facility] Comment on above: Order Comment: Urina ry Catheter Insertion triggered Urinalysis With Culture Reflex order by discern. Performed By: #### 1 [id number] ####[facility] [address] [place] [address] Glucose Test strip (U) [Mass/Vol] Negative Normal Negative [facility] Comment on above: Order Comment: Urina ry Catheter Insertion triggered Urinalysis With Culture Reflex order by discern. Performed By: #### 1 [id number] ####[facility] [address] [place] [address] Hemoglobin Ql (U) Negative Normal Negative [facility] Comment on above: Order Comment: Urina ry Catheter Insertion triggered Urinalysis With Culture Reflex order by discern. Performed By: #### 1 7261189 ####[address] [address] Ketones (U) [Mass/Vol] TRACE Invalid Interpretation Code Negative [facility] Comment on above: Order Comment: Urina ry Catheter Insertion triggered Urinalysis With Culture Reflex order by discern. Performed By: #### 1 3566969 ####[address] [address] Nitrite Ql (U) Negative Normal Negative [facility] Comment on above: Order Comment: Urina ry Catheter Insertion triggered Urinalysis With Culture Reflex order by discern. Performed By: #### 1 [id number] ####[address] [address] pH (U) 6.5 [pH] Invalid Interpretation Code 5.0-9.0 [facility] Comment on above: Order Comment: Urina ry Catheter Insertion triggered Urinalysis With Culture Reflex order by discern. Performed By: #### 1 1789959 ####[address] [address] Protein (U) [Mass/Vol] Negative Normal Negative [facility] Comment on above: Order Comment: Urina ry Catheter Insertion triggered Urinalysis With Culture Reflex order by discern. Performed By: #### 1 7107523 ####[address] [address] Specific gravity (U) [Rel density] <=1.005 Invalid Interpretation Code 1.005-1.030 [facility] Comment on above: Order Comment: Urina ry Catheter Insertion triggered Urinalysis With Culture Reflex order by discern. Performed By: #### 1 [id number] ####[address] [address] Type of Urine collection method Clean Catch Normal [facility] Comment on above: Order Comment: Urina ry Catheter Insertion triggered Urinalysis With Culture Reflex order by discern. Performed By: #### 1 4900549 ####[address] [address] Urobilinogen Qn (U) 0.2 {[place]'U}/dL Normal 0.0-1.0 [facility] Comment on above: Order Comment: Urina ry Catheter Insertion triggered Urinalysis With Culture Reflex order by discern. Performed By: #### 1 [id number] ####[facility] [address] [place] [address] WBC Auto Ql (U) Negative Normal Negative [facility] Comment on above: Order Comment: Urina ry Catheter Insertion triggered Urinalysis With Culture Reflex order by discern. Performed By: #### 1 [id number] ####[facility] [address] [place] [address] URINALYSISOrdered By: Paulina Dobbins on 05-29-2022 Bilirubin [...] Interpretation Code Negative [facility] UA Auto SS [place].plasma/Lithiu m.RBC (Bld) [Mass ratio] 0-3 /HPF Normal [...] PM) Invalid Interpretation Code 1.005 - 1.030 [facility] UA Auto SS UA Spec Desc Clean Catch (05/29/22 6:35 PM) Normal [facility] UA Auto SS Urobilinogen Qn (U) 0.8400572 {[place]'U}/dL Normal 0.0 - 1.0 EU/dL [facility] UA Auto SS WBC Auto Ql (U) Negative (05/29/22 6:35 PM) Normal Negative [facility] UA Auto SS WBC LM.HPF (Urine sed) [#/Area] 0-5 /HPF Normal 0-5/HPF [facility] UA Auto SS Vaccinationson 05-29-2022 Vaccinations [id number]# 1.00CD:127 Normal [facility] Consent for Treatmenton Consent for Treatment [id number] #1.00CD:127 Normal [facility] Discharge Instructionson Discharge Instructions [id number] 5#1.00CD:127 Normal [facility] Inpatient Clinical Summaryon 05-28-2022 Inpatient Clinical Summary [place] [id number] Clinical Summary Person Information Name: RAJESH SAEZ Angy/[facility] Age: 26 Years : 1995 Sex: Female PCP: Shanna Daniel DO Marital Status: Single Race: White Ethnicity: Non- or Language: Maltese Visit Id: Visit Reason: CYTOTEC Speciality: Acuity: Enc Type: OB Triage Med Service: Obstetrics Arrival: 05/28/2022 08:35:16 Discharge: 05/28/2022 17:00:00 Dispo Type: Home (Routine DC) Address: [address] [place] [phone] Provider Notes: Diagnosis: Problems Active (08/25/2021) Smoking [...] Follow up: With: Address: When: Devin Pereira [address] [place], [place] [id number] [facility] (1) 05/29/2022 5:00 PM Comments: Call for any problems. Return for contractions closer, longer, and harder. Return for decreased movement. Return if ruptured membranes or vaginal bleeding. Patient Education Information: Normal [facility] Inpatient Patient Summaryon 05-28-2022 Inpatient Patient Summary [address] [address] Patient Discharge Instructions PERSON INFORMATION Name: RAJESH SAEZ Date of : 1995 Current Date: 05/28/2022 18:15:31 PHYSICIANS Admitting Physician: Devin Pereira MD Primary Care Physician: Shanna Daniel DO PCP Comment: Discharge Diagnosis: Condition at Discharge: Stable RAJESH SAEZ has been given the following list [...] up: With: Address: When: Devin RIOS SHEREEN, [facility] [address], [place] [address] [facility] (1) 05/29/2022 5:00 PM Comments: Call [...] Leaflets: You may receive a survey from [employer] asking you to rate your care experience. Your feedback is important and will help us understand what we do well and how we can improve the quality of care we provide to you, your loved ones and our community. It?s an honor to serve you. Thank you for choosing [facility] Normal [facility] Insurance Correspondence Off 05-28-2022 Insurance Correspondence Office [id number] 1#1.00CD:127 Normal [facility] Coding Summary.on 05-22-2022 Coding Summary. CD:[id number] Gh0bWw+PGhlYWQ+PE1FV XExH07hbKGwxZ0TO5gSS Y1RMWCWSAESFW7WXR6au FM7CAkeB1EyowOr PdkfsIEaWT18QTk6RVX4 gXoqDMvcjR8khLGhB6u9 UiEnVL97iW65FSyfNLCf KyH4QmMpdodznPFx T2isFlTegXPeBde+PHRh YmxlIHdpZHRoPScxMDAl JmTxzQlfTX3dBd8pBLHx LWNvbGxhcHNlOiBj j6dtTRTcSRwrUD0vfTsw Z6ScfNU5OHFxr9x6Of17 dHI+QSRoVZV2bGlqPRyp n979QaUer6lxWRV1 qAFzJMhcEGD9P34xd6M2 BJIsKKWzHYT3cPI4vW1a mCrucnyyU8UziJCjXoN8 MON4vNRusX4zwRba bvfsdE6sMim+Z18XNW3Y UOCTFR3LNcw8S8VbKujg dHI+RN61NRLrMZ11jHCj qTQxl3kndZt8VjKf ENYpMHD5oKcaOOfjp8Nc EYZnX85hsPFff2Z6SDAv uQuhrNJdNeTqbJL3tP7v WBpckyvzx2mubzjy Sbvng0mrip99eO28Z45v THraHXFpAZU1FNMlGRZf iKihaa4pjL7bYm5+IDxj s1ewc1kbbXj7YsTi WSTgyjUbjUkoFXC6h8Sn Rc68X3IqtNxrc7EfDpt6 ln54wHRjs9K4sEI1CLrj OCMoyA8xLNnuApT0 WLMwHgDxeY09wWMtSVwh Uv4iePdnkQgaVB4vRECw dnauEOAszI1rQCBgnADq eArrMV8oFQYaapvx b179PrLeMLU0JSXffGWr F8MqtV7uOvSeEPRpLIAr T0RyyUUoEJytB849XZem IfP5PPCvgzHoV6Gc ZJLvhBykEaL3o5L9Vr2K w0FoihjiARK8ZEtjSFY5 NcE7WzCnWpU1L5NoOzc5 ATHqfWbfTI8nF9Ah URUkkuqahhmnkKE0YDGn PXOxoQ58kAReVLxzKp5z y1L6g100VVEzOVVoiI21 Lm9skRhfYFFrjTSX wN9ommulh1yidjfrQtHc JSYgTBb8OIg8GLWhzGng LhDsKJD0NiU2CJJ5lTMf mW6qnHbmfqjreF9r Oyc+T54yyN1vERP0LQI0 uttxAQFuiqUnWX04VA61 Z7TcIsmfcQYadMK+PGRp fiIiiXkbBN0iKhVg f2adz6DdLMdmS9ZsAIGt BXapRju2UIWmKCC6nZR3 fX7qIAWrPRzdz0Z5tFM4 B4PtpcAabr5ct4sb JEFyJOlnQ62ntNMqp7T9 PTJwrUN3DKWvcTohOoHp jT13Qwr+LNBjaYbzl1Xo Brcdo7dvh0kygBa3 IjMwJSIgdmFsaWduPSJ0 r7LdWm12U10zMQmhSTPt ZWUiMMYcHYDpnEiqvf4r iE2kCy4+PGNvbCB3 pDC1vR1aSKClUxL4RVnw S917ZrNvwTQwYhgme8io c3fntLg9WzYfWQNjdvYt nCykTEG6p8NySv02 R12kRBnjFYTdQSRsFAIv ZWGjbWgahv9vkL9nCp3+ SD6gu0gpag11bM76wEF+ ZOJjONW0uRtuXFxl VSJvqT6mAFabZoS1YNDs RzRqaN48hESbFOzcUk9c bUpbhPftDL1bPOMfjyur h694QzOwl6nsVYOy cMPkKOirRVG1A61uv0T9 TPLtBOLjWEZ3bVO6aE7k bGlnbjogbGVmdDsgdmVy qFyqBGfbYPpmC786 IHRvcDsnPlBhdGllbnQg McIeLJw2F5HuSnk1DGOp qLdtNC0gcNPiYFflGs5s uOqqmCziTN3bSUZo earnz217AnEgh1snYUQf xIEjVGqrLND8J28dq3Y5 JPCvRPVvFMB6tIY5eJ4d bGlnbjogbGVmdDsg myMudTsyNPswSBpfU302 IHRvcDsnPkJpcnRoIERh yBN3LU66IT07iGLrb5N8 xUM5O3TuUJSlirxc aewplXS3AMNvDNEqbV85 Nv8hcGgnYk5rTKXgWMP9 TKTitDGaP5EhxQ2tUxGz BNKwSZTmX5KlzVNc LOqoK332VGakYkS3CCAs pxUaM7JjNKBpxVrtZkM8 e4W9Fh1YS3C4SB44CY01 bFKcn7K8aXN3Y1Jq JDDerlguxqidqFP8HXJi RRShjF49Tg3voRvfBm8q FQCxDNO1ZSCyhZSpS6Fs pQ0cLcEwHUCdDCTw R8JavSIqFGitR066QFdm GdY8SQIbleSnW3WqNRCm cNgwIaF2u2U0Ah5GNMf5 TQ38MU80pEJlv7T0 lYT5J7BkCAFfakzkzzdk pFZ9ZNJkDOEezN53Bu6k bLgoRg6zBQFxQOW5YWVa kXYjS9TkoB2pAmZg YCCtSEXxE0VlhOMnNBms V431SZusJlG4VYOcvnMb L2SmHYUwyXzzYpB6x2P6 Ar7BHGGmVY41YTM2 vFU3MM56FS18Z2TiIbvj dGFibGU+PHRhYmxlIHdp ZHRoPScxMDAlJyBzdHls IL4lAy7sFHTmLNJw wOnsnCThNnGsq1zlZLLr BQuuZQ4olVppW2XxiBG5 JFZam4e4Ph02Q87eY7Oy dXA+JAMbjMV1xDW8 vO4nUxYmGmQ3EUmrS763 LcWsjWJaIqkno5ivv7uh vYt2GmJ7EUQhrqTemRnj XNJ9r8HiCk89A70x IHdpZHRoPSIxNSUiIHZh yKdpfj5jyC3uLd3+PGNv uAI9lAX9rA9mWfKyLbP3 CLkyQ539EqUupNLs Jlslt7hyn8xijWh0BdIu CPMtczLqzCsrCHU3b0Mn Uv39C1DpkSnet4XvTbk4 hs52wLFfc2A1iLX0 H4AvSXHwxdiiqYDafFxf WD5xLGWxtjnjFMCfqQ4f JOQfS7z0GkXmDnP9OWgi W3YwyiL9RCBphFVx DQwrDFK9Y01ii7I1XNVu TIToQOK2gZG0nF9ptFin bjogbGVmdDsgdmVydGlj XYuiXKjkI312LVNk mSmiRHYqeE1nPGVsfCOj dCcpVY7vEQZfhbqlSoMO Pk8AUywkR5FRGASSFYFv TTwvdGQ+PHRkIHN0 rTceDCumSDOkoW7nFERh O9d3CuScZxH8XWoxC2Su YAVlqsveIs55jI5cMnQt UdA2KPbrW9FwfaU9 GLNliUKmJFtxAOC2R18g m3Y7JRBqMZBxEWP6uXA0 pZ9vtThqulilxHVvqXag dmVydGljYWwtYWxp O833XXZjmYuvFfDnSpS9 GkY9URo6S4SzGjf0LYJi hPglRB7doHErBDroMq4a lCzjyLlyLV7aDYLh icheVTEuoY4aHXYssMXc tUniIS3eXALohwiyq500 KnWxMNC3KIKptFNeD1Ht sC0mNuZcJDMcXOAr E5SozTJcUGgtF054HDjz AkL5FRJkgfKiN7DiVVOk kDqmYxP3g1O0Yo8lROJS ZWFyczwvdGQ+PHRk EJZ9vIkeYAayHSImzL4u ZKRvJ6y8TqMkFxZ6YQen B0LqJLAnblvoSy25cR8d SbYkJyJ3DYzkL6Ei ixU3TLNabNYpHLmrOES4 R73vg5Q3OUYwUDThKUJ9 yOS7gB0pdErsrkjsxGSn dDsgdmVydGljYWwt ATmsO695TFRqcAduRlPb bWFsZTwvdGQ+PHRkIHN0 hMxnTMyjBURgzP7oFQQj H6l0NtPmUxV0NIox B1VnXRGpkdkfHf27jA1x LuHfSnB1TNtlN2NegoY3 MGYkjJSbPFmqNUB1E61a z2Z9WSBsJCNnBGI9 tTC5dS1nkTvjbtysnORs dDsgdmVydGljYWwtYWxp Q298NVPlyKjsVfcfSvIM zz7cIN3hSgccfQG+ HO13nn71V1TkMowiRas6 BOHrCHI8bDR9iE3rNYUg XCpsp5M8bOI3S6UwndTa ey0hd7wvNAMpJJyo A59rgXZyz9O3ZAJtzAL1 FNBfyDhzQlDbxW58Zne+ OHCttMwnm2XgXrkqg9up d1pbzZe9VhXtWZZx bsDqkInlYRS1o5TpNr80 V10qGSouPSPqWDFpWIRi IKIwpUueyg3pfJ8cJm9+ SEWnjNN7sJM2iB2d WbUqLpT8MZykG398VaCh gQXjYcokw5gwc2vuxUc1 IjIwJSIgdmFsaWduPSJ0 h5EbKp33A7JitIvu u6PjAjc7nk97zGPam9R2 bRI1D4ByAQYrzsywpFYw fNnaKU1qDFMrbevxPOOq rI5fKCPyH7h8YzHb LnX5WRzlO6WgnxC5AIWi uCPbRSMtrDUMjU1hnzih r2ggssuoTxRlJPUmOJm1 JWk3YXLtmKzdDtGv PPM4JzS7VNB1mLBwwU3j vBwzpfkyuY2uArv+UGh5 h0nfeOTxLJ2wpGL9EW09 HO14tXGma7T6lUM6 S2GlCTMhaacoycfmqOX4 WRQzRDDziY22Dg1rbOxa Zd6kYZNzDRY1RJGrdNBw Z9HqtR5aNfUwPGYb KLTiB8GzgQStCHwoQ947 PVlpRvQ9HJJfmpQlR2Zq PQCybZcqTcD3q0X3Gy5A WS79WF61YA48xKRw e7T8tSR5S6JnPINnkwwp bvegrQN7FLCzEAXekH45 Ij7oqIxvRy9jMKHlQZV1 UVDuqCTzG1VivC8y InWbKTIdOJAoB9KjjVIw IDlsH957CAzfIoJ9LBBp jpRwM9NjDEGdpSkvZoD9 q0U9Nz2AXv06BQ59 EM46kYNis4Z5kCT8E7Kd PADjvifrxcrviAX6IUUz ZPDzwZ12Hl6xuEqaDk0q WUPyLDZ2AJQejDPf X3CduI5wIpUrIIEwYLBn F1QlqCBfBZzxF126TUfq KrW1FUSzngZiS5HiPVXo aNojSbO2d2B5Kr1A XDdajbz2D3DuQiktgKR+ IE23GBRfTZ40cZYgpGYh u7rtgMd0ItWlWVSdOQU3 iClhSVkwo9LdXWMx Y29s (more content not included)... Normal [facility] Group B Strep by PCRon 05-08 Group B Strep colonization by PCR Negative Normal Negative [facility] Comment on above: Performed By: #### [id number] ####[facility] [id number] [place] [address] Physician Orderon 05-07-2022 Physician Order [id number] 7#1.00CD:127 Normal [facility] Physician Order [id number] 6#1.00CD:127 Normal [facility] Coding Summary.on 03-06-2022 Coding Summary. CD:[id number] Gh0bWw+PGhlYWQ+PE1FV WXgJ09psALdqP2XC5pHT J1GNVESNALETR2TGN7jk HC4UKkyS3RwjhMb GvnlgJCwQZ28FYv2QLE1 oBajCDyzvK7feBLyT5l2 LfRvWZ91pS71WUgwQSOz HuG8SlAhryjufMTi U6vpSsOscGIiLps+PHRh YmxlIHdpZHRoPScxMDAl ZiLtoFszCF1eDh8cXJNx LWNvbGxhcHNlOiBj r6ktIPHySElxIM2neXsd O0PrsAE3NNVzd6c9Ty16 dHI+DPMxUBX7zLtmZOpr b520KdXir8rhBXS1 zVJfWKwrVDY3O32ao7J5 FCLaYOQmOAV5yDS8hT1q dAiotqjsR4FtmFGlZiY4 IFK9kHTzpU5kaXoz fvewhU9iAnr+T83RDJ3S SGXCVZ5FMbi5O8PnFynn dHI+IT95CWGuLD63fEYp lCQqp0dlgVh6HeBy YAIhSJN1aMydZGbhr1Eg JLRlX35cgGIeq1E1JZUj qKsrvEZwNpGblLO7iS9i DTnwylvdz8jtqzpg Rokzp3vzzu54hE53E13c RVebXSUmNTT7HSCfPHOq bYqsmb3epO9mBa0+IDxj x8tjl6stpPv7EmAj OAFhrhTuxJstKIV9m8Vp Nt35H5AsvIroc5BdMnw5 bv62jNNre7S8dEH4PQgv ODKjgR7eVBhvTzO8 WKOiMcAcxG01iOKoFTsf Rp9zgLgmcJxmOB0aAINr joazLEMsnU9lIFKaeTGb wRyzNM1wFAJzmikj c302JlHkPQS0VJCiqVIp P7DxaF3oEaUoQLGzQSVd Q7ZogKXdCRgfM689SSuk PqH2JPQdswWrL8Kx SEJpsSbrPoV3a1T1Lt8H z8MscukkDDH1RFfwBXK7 IqHsYqQcHaU5E7BbSpf5 WFFmaFmqYL4wX4Xn XATtqhqiuhffpJG0OHHw BMCtxV72kEJqFBxpTl9f l3F2o612GPCcQHYziP31 Oy7btRyfPOLflQZB mM2vviwbc2oajwxkHvLz WQVhWUe2KAc8CNTfsAxw LjWzRET5QsG7JHD9bEGi gF6adVkystkfgH5t Oyc+H12ooY2pBIE8WKG8 mfruPZXrjsKzOG30OB55 O0NdLddffMFeqCS+PGRp euJlqGzoOJ4uRkEi n9haw7SzDXlaM6JrLSLv TGbjJbd9ZPAyQSK4nCT0 rA5eMBRiVUolm0S8eMM3 D7ByitAuux8pl5cs SSNpGLxkU72ymXSuw0K5 BNQvaPV3YRWieNfjHfRh nK32Iuk+TJXhrBrkb9Hz Orsgl3uie8uuvMx0 IjMwJSIgdmFsaWduPSJ0 w3PcYg48V06nGVwbOHUx XYUjZNAlAGSoiOmjic4t bH1qRs8+PGNvbCB3 wXH6yG6fRDCxUoW8BHff G655IcVqdSFdSnsiw2qk g5cdyDw6JvFzREBspoIa xUvkLSF4i2BaFb33 S68uWShpPBBtKNOgOUMh XCHsoNhmez6guJ7hHy7+ QZ9wl2ojty54tY02cHT+ VJCbBQY6pIuvOBox FVQuxT9xVUgcZgV1DPJe WnOuaZ36pVOeRXqcKw9l aGptfBwiVN3vJMCeruyy h070NmIbm2pgBAAg zFBgZIcsAGD6U95ua2M4 EBGbWZCpKHZ8dRC7iY5f bGlnbjogbGVmdDsgdmVy hOuiPRymXIwpT699 IHRvcDsnPlBhdGllbnQg OpRdNTp3L5BtXiw0TDKs mVrnTC3nsIFwGVncPl3b xNoxsYcrES3mTMYc qsjmv410CsRim8gzNEGb qDNdCJqrEYC6K88uw9C8 RTMtHIMnQUR3uFO4oS8e bGlnbjogbGVmdDsg elNgfJlyGWgxKHlgV030 IHRvcDsnPkJpcnRoIERh rZF9OS22GG32eZCpa3G1 aZI6B3PuQQYzzkla bkuraRI5TOMbXXFslC35 Za8xvNeaRh3sAYPsRWB6 MAFazWRbN2KqrQ3qShIt FJNwVJFsN8HllMAt GXopI382PYwdVcP9FMIe ypYnH3IjBWMwsHneVrF0 c8C3Vd6KG5W7ME48MQ90 iKRdu9W1oKI0I2Mg HZCmmeieplalgSE4DZYe EATmbX66Pk6rtOqjMb9j JZYfOAA0KAGanNSmX3Zf fQ4wXjJkWBAyCRXu U2GvoZHhXJyuI479DZac EsB1FCAdcaCrV8VtYANu vAgqCaJ8u5S8Oz8NGQw3 NN11ZL05hFQft4L9 rHD9X1NrPNRpzftforox gTF8XFWpCYItlC43Ph2k gDgzVn3nCFOkQAS8AVSr mGJjO2VyjQ8gUxSc XFRcLHJeO9OugVDoQDrn C000ASnvOmX9LZSmowGv B2DdOKBoaOkbGxP0a0O4 Zz5PQSJbGH51QBG1 gTD8TY52BW41C6ClTsct dGFibGU+PHRhYmxlIHdp ZHRoPScxMDAlJyBzdHls HW2eTm7xQBJeIMTk pEagnPLcXcSoi7hwIXSc YJckEH4ifUndQ3YveIA6 DIJtx1c9Od95B94mZ5Xt dXA+YATttFI7wPJ6 rG6uEeEdQvK4DIjoY755 EtJjzVPcFyqru2dbh9te oNs3QiR7QSPoxzQwfZbz LTP3c9NkNp11M22t IHdpZHRoPSIxNSUiIHZh jKjjws6fzT2sTy3+PGNv zNU2gKX1hF0aZlZfPhV7 LMsxP311ChNnhPUq Skbtv9vcq3akmBz7OdGu OZTfprLvvFqfXZQ2p9Ru Ur81U7BevJvhv7XkFnc4 ki18lEVjq4B3fFZ3 D6PpZMFvxlbkoPXssIll EW2uIFMasmgqWAXasP1x DWPaW0x2AaNvTmG3GMfi K0AdooL0MPEoeNTv KNcoTTG9E93mn4W1RJSy WYWwIYJ1kKC2eR6vvFld bjogbGVmdDsgdmVydGlj ODznJDsvH166GGYa cKlbUVKolX9uQUCdoOSn iGltSN1mUUWnqlnbGzXA Zf0SGytzA8IIMDFEMTTw TTwvdGQ+PHRkIHN0 uKjaNWejPOVquA9dYLNt B8j6CwTvVvX1HOtxU8Mz TXXzkyyiOp44yX4jNxNs JqT3NCelX2WuttS3 RBUiySTtQNtrHJO6L61n n2K1ZHVhPJTgDWE2vCK9 cA4poOosgqjakQZklExb dmVydGljYWwtYWxp P893WRQskLdeYmZjIvG1 AkV0FSp9S3PxBvn2MLSs yKvnCP3hgQRcPMnhWj6m mAowrHtcXA7hRLJs xtjiKXWhoG9xCJZbcLLs xZutZH3mFPYxbpgxr409 XfTxBTZ0QHSbyHDzU8Zs nM2wPySnTYAkBPHm C1PlaBYtHJioK276CUin LtP0KJDxtiAzB2JsBALu aMnaRqN7l5P6Vf0rAHOV ZWFyczwvdGQ+PHRk JSG5xGdeSRqtHOAxeM9y MMYiF1r5TvPkNmX5HMik T0AiWUTirctvXs84zC6p IvKgLwL3SXgjC4Hw xgD6DDKjxMYvAZzyCOJ1 N15wx5Z0ZRIlCDZiKRO3 iBW8wR0vaIcirpzeqYWf dDsgdmVydGljYWwt TSgeB333WCNslYyhAgFa bWFsZTwvdGQ+PHRkIHN0 iDjaVMrxBJDlyH3fUXRj V0h5AcXmPrI4LHkp A0JwBCSdtmlnJc31hU6s BdAdTgL9YAjdE0RaofH8 DYWupVMtKTyqJFU9X97p y8R6HAIwGUYbBYQ9 vRC5cL1zkSwsaockbTBa dDsgdmVydGljYWwtYWxp T528AZJwwDfvTb18mGTx jFhdkzQ8J1PeCtop dHI+RL64TKFgLM65sXVi mPLlj9xeeFs3UlDpBSAq FGS2oAyqTAlcx4EkSRWl Y44inMQdi3B2KTXa cCbljTApRjEhaVT1vR0k IPebumqtq8byrlunMyxp h8ubju72bE40S09tXPnc ZHRoPSIzMCUiIHZh nYcxfa2wxE9fMy3+PGNv fZA2eKD7aT6eGkEoNqH2 UIyrG373YdErhAUkQtjm h6rzz3itbNx0EpTz FYUgkiUhfGcqITI3a1Kc Pt87E46pMMynNMTqNCAd ULZfRRCngSrfxk3nwL8q Ii8+FN8qd9yyfy94 hG49kAB+MKLgLMB2pLak NEunNHTzmN5xIGihZsF8 IOVuXsVjrE38vMVaBQuq Gc0puMaliByaYZ1g ANHqndyby501NsHdh7zw BOEwkFEjJDidVFB6O49s o4R1YUIpYHOtKSQ8jPE7 kS2hrNecndfffNIj dDsgdmVydGljYWwtYWxp R598FBDmjIzfUaYqwNYo A3hjvsPUCG2tSziuaKW+ ZEXaOPJ5dWyzEGjp BMUhwT1bWCGdM2d9PiJm AnD2TTxeF7LwhpV3VJDp qKIyATQaiCZEiI5gdyms d3gdxtzoIhCwUHKx HQp2CCp0RZPobFljKmQm BPM2QjZ8QPM0oDPeiU9q vJgbpoeglG8iQgw+RklO OjwvdGQ+PHRkIHN0 aFvbLLnwOUIlrA8zHKKd B7l1BmXhTwM0DYvoL5Ym ezZ4AWHkhCVmRZZnaGMP hK8rxfopp3ndsirv FaPhYVMkZVi0VXy9BCRe bHufIqHfKUA8YjL7BOF2 gKZbgV7peWlmevxmeQ3g Oyc+TVJOOjwvdGQ+ HYQxCYH2cQxbBGblVQBu iX3dYAGyO8j9MrSsQbT8 WVnfE4JhdaX8JVDpeUVs BBXpbNLTvE4dvzxl w1nocxhpLaOlESMlQPt5 LAs7FYHwfTwiLvUrRMA5 KbK5RPT4gQHnsK1etKzy ntgvdJ8dQcf+UGF5 SRR2QV91TQ34J9VlMmtq dGFibGU+PHRhYmxlIHdp ZHRoPScxMDAlJyBzdHls PV3jZh2lNFFuZYLk bGxh (more content not included)... Normal [facility] RPR with Conf Rfxon 02-25-20 22 Reagin Ab RPR Ql (S) Non-Reactive Invalid Interpretation Code Non Reactive [facility] Comment on above: Result Comment: Perf ormed at: [facility] [address] [id number] PhD Ed Yeboah Performed By: #### 1 [id number] ####[facility] [address] [place] [address] Consent for Treatmenton Consent for Treatment [id number] #1.00CD:127 Normal [facility] Gest Scr Glu 1 Hron 02-23-20 22 Glucose [Mass/Vol] 121 mg/dL Normal 55-140 [facility] Comment on above: Result Comment: Posi tive Screen =1 HR > 140mg/dL Performed By: #### 1 [id number] ####[facility] [address] [place] [address] Hct & Hgbon 02-22-2022 Hematocrit (Bld) [Volume fraction] 33.3 % Low 34.0-46.0 [facility] Comment on above: Performed By: #### 1 [id number] ####[facility] [address] [place] [address] Hemoglobin (Bld) [Mass/Vol] 11.6 g/dL Low 12.0-16.0 [facility] Comment on above: Performed By: #### 1 [id number] ####[facility] [address] [place] [address] Physician Orderon 02-22-2022 Physician Order [id number] #1.00CD:127 Normal [facility] Vital Signs Date Time Vital Sign Value Performing Clinician Facility 12-31-2023 10:56-0500 Body mass index (BMI) [Ratio] 34.51 kg/m2 Maame BARR Work Phone: [facility] 12-31-2023 10:56-0500 Body weight 88.36 kg Maame BARR Work Phone: [facility] 12-31-2023 10:56-0500 Diastolic blood pressure 56 mm[Hg] Maame BARR Work Phone: [facility] 12-31-2023 10:56-0500 Systolic blood pressure 108 mm[Hg] Maame BARR Work Phone: [facility] 05-31-2022 15:01-0400 Hourly Rounding Devin Pereira [facility] Comment on above: Result Comment: discharge instructions g iven 05-31-2022 14:36-0400 Hourly Rounding Devin Pereira [facility] Comment on above: 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 05-31-2022 13:00-0400 Hourly Rounding Devin Pereira [facility] 05-31-2022 09:24-0400 Body temperature 98.06 [degF] Devin Pereira [facility] 05-31-2022 09:24-0400 Diastolic blood pressure 73 mm[Hg] Devin Pereira [facility] 05-31-2022 09:24-0400 Heart rate 49 /min Devin Pereira [facility] 05-31-2022 09:24-0400 Mean blood pressure 90 mm[Hg] Devin Pereira [facility] 05-31-2022 09:24-0400 Systolic blood pressure 125 mm[Hg] Devin Pereira [facility] 05-31-2022 09:24-0400 Blood Pressure Location Devin Pereira [facility] 05-31-2022 09:24-0400 Mean blood pressure 90 mm[Hg] Devin Pereira [facility] 05-31-2022 09:24-0400 Respiratory rate 15 /min Devin Pereira [facility] 05-30-2022 20:40-0400 Body temperature 98.24 [degF] Devin Pereira [facility] 05-30-2022 20:40-0400 Diastolic blood pressure 72 mm[Hg] Devin Pereira [facility] 05-30-2022 20:40-0400 Heart rate 61 /min Devin Pereira [facility] 05-30-2022 20:40-0400 Mean blood pressure 86 mm[Hg] Devin Pereira [facility] 05-30-2022 20:40-0400 SaO2% (BldA) [Mass fraction] 97 % Devin Pereira [facility] 05-30-2022 20:40-0400 Systolic blood pressure 113 mm[Hg] Devin Pereira [facility] 05-30-2022 20:40-0400 Mean blood pressure 86 mm[Hg] Devin Pereira [facility] 05-30-2022 14:51-0400 Body temperature 98.24 [degF] Devin Pereira [facility] 05-30-2022 14:51-0400 Diastolic blood pressure 70 mm[Hg] Devin Pereira [facility] 05-30-2022 14:51-0400 Heart rate 52 /min Devin Pereira [facility] 05-30-2022 14:51-0400 Mean blood pressure 84 mm[Hg] Devin Pereira [facility] 05-30-2022 14:51-0400 Systolic blood pressure 114 mm[Hg] Devin Pereira [facility] 05-30-2022 14:51-0400 Blood Pressure Location Devin Pereira [facility] 05-30-2022 14:51-0400 Respiratory rate 16 /min Devin Pereira [facility] 05-30-2022 14:45-0400 Blood Pressure Location Devin Pereira [facility] 05-30-2022 14:45-0400 Respiratory rate 16 /min Devin Pereira [facility] 05-30-2022 08:00-0400 SaO2% (BldA) [Mass fraction] 98 % Devin Pereira [facility] 05-30-2022 08:00-0400 Mean blood pressure 111 mm[Hg] Devin Pereira [facility] 05-28-2022 16:40-0400 Hourly Rounding Devin Pereira [facility] Comment on above: Result Comment: Patient declines vaginal exam due to expressing not having any pain or noticable contractions. RN notes decline. 05-28-2022 16:00-0400 Hourly Rounding Devin Pereira [facility] Comment on above: Result Comment: Discharge instructions g iven and educated to come to hospital tomorrow at 1700 for induction. Educated on induction process and what inductions intail. RN answers questions from patient. Patient voices no concerns and agrees. 05-28-2022 15:00-0400 Hourly Rounding Devin Pereira [facility] Comment on above: Result Comment: patient resting watching tv with fiance in room. 05-28-2022 15:00-0400 Promise to Return Devin Pereira [facility] 05-28-2022 14:45-0400 Blood Pressure Location Devin Pereira [facility] 05-28-2022 14:45-0400 Body temperature 98.06 [degF] Devin Pereira [facility] 05-28-2022 14:45-0400 Diastolic blood pressure 54 mm[Hg] Devin Pereira [facility] 05-28-2022 14:45-0400 Heart rate 64 /min Devin Pereira [facility] 05-28-2022 14:45-0400 Mean blood pressure 68 mm[Hg] Devin Pereira [facility] 05-28-2022 14:45-0400 Respiratory rate 16 /min Devin Pereira [facility] 05-28-2022 14:45-0400 Systolic blood pressure 97 mm[Hg] Devin Pereira [facility] 05-28-2022 14:00-0400 Promise to Return Devin Lorenzoten [facility] 05-28-2022 13:00-0400 Promise to Return Devin Pereira [facility] 05-28-2022 12:00-0400 Diastolic blood pressure 53 mm[Hg] Devin Kelli [facility] 05-28-2022 12:00-0400 Heart rate 50 /min Devin Lorenzoten [facility] 05-28-2022 12:00-0400 Mean blood pressure 66 mm[Hg] Devin Kelli [facility] 05-28-2022 12:00-0400 Systolic blood pressure 91 mm[Hg] Devin Kelli [facility] 05-28-2022 08:47-0400 Body temperature 97.7 [degF] Devin Lorenzoten [facility] 05-28-2022 08:47-0400 Diastolic blood pressure 59 mm[Hg] Devin Lorenzoten [facility] 05-28-2022 08:47-0400 Heart rate 64 /min Devin Lorenzoten [facility] 05-28-2022 08:47-0400 Mean blood pressure 74 mm[Hg] Devin Lorenzoten [facility] 05-28-2022 08:47-0400 Respiratory rate 18 /min Devin Lorenzoten [facility] 05-28-2022 08:47-0400 Systolic blood pressure 103 mm[Hg] Devin Lorenzoten [facility] 05-28-2022 08:45-0400 Blood Pressure Location Devin Lorenzoten [facility] Encounters Encounter Date Encounter Type Care Provider Facility Start: 03-02-2024 End: 03-02-2024 ambulatory MAAME SUNSHINE Not Available Start: 01-27-2024 End: 01-27-2024 ambulatory EARL ZELDA Not Available Start: 12-31-2023 Clinisync Result Encounter Maame Sunshine CORTNEY Work Phone: [...] 12-18-2022 End: 12-19-2022 ambulatory Kaelyn X Orzech Facility:[facility] Start: 12-18-2022 End: 12-18-2022 Patient encounter procedure Kaelyn X Orzech [facility] Start: 12-04-2022 End: 12-05-2022 ambulatory Kaelyn X Orzech Facility:[facility] Start: 12-04-2022 End: 12-04-2022 Patient encounter procedure Kaelyn X Orzech [facility] Start: 11-28-2022 End: 11-29-2022 ambulatory Kaelyn Rodriguez Facility: [facility] Start: 07-11-2022 End: 07-12-2022 ambulatory Devin Pereira Facility:[facility] Start: 07-11-2022 End: 07-11-2022 Lab Drop off Devin Pereira [facility] Start: 05-29-2022 End: 05-31-2022 Evaluation and management of inpatient Devin Pereira Facility:[facility] Start: 05-29-2022 End: 05-31-2022 Evaluation and management of inpatient Devin Pereira [facility] Start: 05-28-2022 End: 05-28-2022 ambulatory Devin Pereira Facility:[facility] Start: 05-28-2022 End: 05-28-2022 OB Triage Devin Pereira [facility] Start: 05-21-2022 End: 06-24-2022 Pre-admission assessment Devin Pereira [facility] Start: 05-07-2022 End: 05-08-2022 ambulatory Devin Pereira Facility:[facility] Start: 05-07-2022 End: 05-08-2022 ambulatory Devin Pereira Facility:[facility] Start: 05-07-2022 End: 05-07-2022 Lab Drop off Devin Pereira [facility] Start: 02-22-2022 End: 02-23-2022 ambulatory Devin Pereira Facility:[facility] Procedures Date Procedure Procedure Detail Performing Clinician Start: 12-31-2023 URETHRITIS/DISCHARGE PLUS VAGINITIS (HTRX) Maame BARR Work Phone: Start: 12-31-2023 Urnls dip stick/tabl et rgnt non-auto w/o micrscp Maame BARR Work Phone: Start: 12-31-2023 IGP,APTIMA HPV,AGE GDLN Maame BARR Work Phone: Plan of Treatment Date Care Activity Detail Author Start: 01-27-2024 End: 01-27-2024 Patient encounter procedure 01/27/2024 9:50 AM EST Routine [facility] [address] [place] [address] Earl Mendoza, DO [address] [place] [address] [facility] Start: 01-27-2024 End: 01-27-2024 Professional / ancillary services management 01/27/2024 9:00 AM EST Ancillary Procedure [facility] [address] [place] [address] [facility] Start: 12-31-2023 End: 12-31-2024 Alpha fetoprotein, maternal Alpha fetoprotein, maternal Lab Routine Second trimester Expected: 12/31/2023 (Approximate), Expires: 12/31/2024 [facility] Comment on above: Expected: 12/31/2023 (Approximate), Expires: 12/31/2024 Start: 12-31-2023 End: 12-31-2024 US for US OB ANATOMY SINGLE W US OB CERVICAL LENGTH Imaging Routine Screening, , for anatomic survey Expected: 12/31/2023 (Approximate), Expires: 12/31/2024 [facility] Comment on above: Expected: 12/31/2023 (Approximate), Expires: 12/31/2024 CHLAMYDIA TRACHOMATI S (GENITO/STI) CHLAMYDIA TRACHOMATIS (GENITO/STI) Lab Routine Exposure to STD Ordered: 12/31/2023 [facility] Comment on above: Ordered: 12/31/2023 Cytology Cervical or vaginal smear or scraping study Pap Smear Pathology and Cytology Routine Well woman exam with routine gynecological exam Ordered: 12/31/2023 [facility] Comment on above: Ordered: 12/31/2023 Neisseria gonorrhoea e DNA [Presence] in Unspecified specimen by JAYDON with probe detection Neisseria gonorrhea DNA probe, direct Lab Routine Exposure to STD [facility] Comment on above: Ordered: 12/31/2023 SURESWAB(R) ADVANCED VAGINITIS PLUS, TMA SURESWAB(R) ADVANCED VAGINITIS PLUS, TMA Pathology and Cytology Routine Vaginal discharge Ordered: 12/31/2023 [facility] Work Phone: Comment on above: Ordered: 12/31/2023 Immunizations Immunization Date Immunization Notes Care Provider Shaun [email or web address] 01-18-2013 hepatitis A vaccine, unspecified formulation [employer] [facility] 09-12-2010 meningococcal ACWY vaccine, unspecified formulation [employer] [facility] 09-12-2010 tetanus toxoid, reduced diphtheria toxoid, and acellular pertussis vaccine, adsorbed [employer] [facility] 02-23-2003 DTaP, unspecified formulation [employer] [facility] 02-23-2003 measles, mumps and rubella virus vaccine [employer] [facility] 02-23-2003 poliovirus vaccine, unspecified formulation [employer] [facility] 06-27-1999 hepatitis B vaccine, pediatric or pediatric/adolescent dosage [employer] [facility] NEGATED: Highlighted row has not occurred!11-28-2022 influenza virus vaccine, unspecified formulation [employer] [facility] NEGATED: Highlighted row has not occurred!11-28-2022 SARS-CoV-2 mRNA (tozinameran 5y-11y) vaccine [employer] [facility] Payers Date Payer Category Payer Private Health Insurance [facility] [id number] 2022-Present [address] [address] [place] [address] [id number] 2022 Private Health Insurance [id number] 2020 Private Health Insurance [id number] 1997 Unknown [id number]. 2.727 1997 Unknown [id number] [id number]. 2.727 1997 Unknown [id number] [id number]. 2.727 1997 Unknown [id number] 2.16.840.1.316890.3.579. 2.727 1997 Unknown [id number] 2.16.840.1.312288.3.579. 2.727 1997 Unknown [id number] 2.16.840.1.363067.3.579. 2.727 1997 Unknown [id number] 2.16.840.1.339017.3.579. 2.727 1997 Unknown [id number] 2.16.840.1.983836.3.579. 2.727 1997 Unknown [id number] [id number]. 2.727 1997 Unknown [id number] 1997 Unknown [id number] [id number] 1997 Unknown [id number] [id number] 1997 Unknown [id number] [id number] 1997 Unknown [id number] [id number] Social History Date Type Detail Facility Tobacco smoking status No Smoking Status Entered [facility] Start: 12-02-2023 Sex Assigned At Female [facility] Start: 11-28-2022 End: 12-02-2023 Tobacco smoking status Never smoked tobacco (finding) [facility] Tobacco smoking status Never [facility] Start: 12-31-2023 Alcohol intake Current drinke r of alcohol (finding) [facility] Start: 12-02-2023 History of Social function [facility] Start: 12-02-2023 Alcohol Comment caffeine: coff ee in the am [facility] Start: 09-17-2023 [facility] Start: 1997 [facility] Start: 10-02-2023 Gender identity Identifies as female gender (finding) [facility] Functional Status Date Assessment Result Facility 05-29-2022 Functional Status No [facility] 05-28-2022 Functional Status N/A [facility] Clinical Notes 05-07-2022 to 12-31-2023 CORTNEY Ospina - 12/31/2023 10:30 AM EST Note Date & Type Note Facility 12-31-2023 History of Present illness Narrative Reason for Appointment: Patient ID: Rajesh Hartley is a 28 y.o. female who presents for Routine Visit Patient presents today for Annual Exam appointment. Patient presents today for a routine obstetrics appointment. Patient is currently 17w0d with a Estimated Date of Delivery: 06/09/24. Current Medications: has a current medication list which includes the following prescription(s): cholecalciferol and [id number]. Medical History: Active Ambulatory Problems Diagnosis Date [...] nursing note reviewed. Exam conducted with a medical insurance claims processor present. Vitals: Estimated body mass index is 34.51 kg/m as calculated from the following: Height as of 05/19/20: 5' 3 . Weight as of this [...] obtained without difficulty and patient was given [facility] order to have obtained. Follow Up: Patient is to return to our office in 4 weeks for routine OB appointment Documented by Ada Hollis LPN on behalf of: CORTNEY Ospina documented in this encounter [facility] 06-04-2022 Note DATE OF DISCHARGE: 0 05/31/2022 [...] complication. Devin Pereira M.D. lr Dictated: 06/03/2022 [id number] Transcribed: 06/03/2022 [facility] Comment on above: Result Comment: Elec tronically Signed By: Devin Pereira MD\.br\Date and Time Signed: 06/04/22 08:08 EDT 05-31-2022 Note The following Patien t Education Materials have been given to the patient: EducationMaterial [facility] 05-31-2022 Note HOSPITAL REGULATIONS : All [...] details. Devin Pereira M.D. ls Dictated: 05/31/2022 [id number] Transcribed: 05/31/2022 [facility] Comment on above: Result Comment: Elec tronically Signed By: Kelli DEMPSEY, Devin Collier\.br\Date and Time Signed: 05/31/22 09:16 EDT 05-30-2022 Evaluation + Plan note Extrac noy from: Title:Post-LDE Author:Jose Miguel Garcia Jr., DO ate:05/30/22 Plan Transfer/ Discharge: Condition stable. Extracted from: Title:L&D Epidural note Author:Omaira Garcia Jr., DO Date:05/29/22 Impression and Plan Plan Labor epidural at request of patient.. [facility]07-06-2022 Hospital Discharge instructions Follow Up Care 05/29/2022 07:05:03 With:Dr. Pereira [phone] Address:Unknown When:6 weeks Comments:Call for any problems. Support Group first Friday of the month at [address] [place] [address] if fever>100.5 F, heavy bleeding With: Services [phone] Address:Unknown When:06/03/2022 14:00:00 [facility]07-05-2022 NoteThe following Patient Education Materials have been given to the patient: [facility] Dis[facility] Follow Up Care 05/28/2022 08:38:04 With:Devin Pereira Address: [address] [place] [address] [place] [phone] Business (1) When:05/29/2022 17:00:00 Comments:Call for any problems.Return for contractions closer, longer, and harder.Return for decreased fetalmovement.Return if ruptured membranes or vaginal bleeding. [facility]06-14-2022 Evaluation + Plan note Diagnostic Tests Pending * Group B Streptococcus colonization by PCR [facility] Future [facility]uled Tests Radiology* US Abdomen, Limited [facility] Diagnosis Second trimester state, incidental Screening, , for anatomic survey Encounter for anatomic survey Well woman exam with routine gynecological exam Routine gynecological examination Exposure to STD Vaginal discharge Leukorrhea, not specified as infective documented in this encounter [facility] Narrative No data available for this section [facility] No data available for this section [facility] No data available for this section [facility] Summary Purpose Family History No Family History Records FoundNo Family History Records Found Advance Directives No Advanced Directives Records FoundNo Advanced Directives Records Found Additional Source Comments Care Team (unrecognized sect ion and content) Cardiac Care Unit Nurse Relationship Specialty Start Date End Date LinkCorbin MD [address] [place] [phone] PCP - General 10/30/23 Cardiac Care Unit Nurse Relationship Specialty Start Date End Date LinkCorbin MD [address] [place] [place] [phone] PCP - General 10/30/23 INFORMATION SOURCE (unrecogn ized section and content) DATE CREATED AUTHOR 12/27/2022 [facility] DATE CREATED AUTHOR AUTHOR'S ORGANIZ ATION 03/03/[address] [facility] d[facility] Specialists EPIC Reason for Visit [...] BE BASED ON THE PRIMARY CLINICAL RECORDS. [facility] [employer] [facility]. provides no warranty or guarantee of the accuracy or completeness of information in this document.
--- NOTE | 2024-03-21 20:31 | ED.PREGNANC1 ---
HPI - General Chief complaint: Fall Stated complaint: FALL 28 weeks Time Seen by Provider: 03/21/24 20:14 Source: patient Mode of arrival: walk-in History of Present Illness HPI Narrative: 28-year-old female presents for abdominal pain. She is 28 weeks . She fell shortly before coming into the emergency department and landed on the right side of her abdomen onto concrete. She states she has a tiny abrasion at her right knee but that does not hurt at all and she sustained no other injuries. No vaginal bleeding. She did feel the baby. Related Data Home Medications ?Medication ?Instructions ?Recorded ?Confirmed No Known Home Medications 03/21/24 03/21/24 Allergies Allergy/AdvReac Type Severity Reaction Status Date / Time No Known Drug Allergies Allergy Verified 03/21/24 20:20 Review of Systems ROS Narrative A ten point review of systems is negative except as noted above. Exam Narrative Exam Narrative: Nurses note and vital signs reviewed and patient is not hypoxic. General: The patient appears well and in no apparent distress. Patient is resting comfortably on cart. Skin: Warm, dry, no pallor noted. There is no rash noted. Head: Normocephalic, atraumatic Eye: Normal conjunctiva, no drainage Ears, Nose, Mouth, and Throat: oral mucosa is moist. Nares patent. Cardiovascular: Regular Rate and Rhythm Respiratory: Patient is in no distress, no accessory muscle use, lungs are clear to auscultation, no wheezing, rales or rhonchi Back: non-tender GI: Gravid, no abrasions or bruises present Musculoskeletal: All extremity joints have full range of motion Neurological: A&O, normal speech Psychiatric: Cooperative Constitutional Vital Signs, click to edit/add: Last Vital Signs Temp 97.8 F 03/21/24 20:14 Pulse 93 H 03/21/24 20:14 Resp 18 03/21/24 20:14 BP 129/74 03/21/24 20:14 Pulse Ox 100 03/21/24 20:14 O2 Del Method Room Air 03/21/24 20:14 Course Vital Signs Vital signs: Vital Signs Temperature 97.8 F 03/21/24 20:14 Pulse Rate 93 H 03/21/24 20:14 Respiratory Rate 18 03/21/24 20:14 Blood Pressure 129/74 03/21/24 20:14 Pulse Oximetry 100 03/21/24 20:14 Oxygen Delivery Method Room Air 03/21/24 20:14 Temperature 97.8 F 03/21/24 20:14 Pulse Rate 93 H 03/21/24 20:14 Respiratory Rate 18 03/21/24 20:14 Blood Pressure 129/74 03/21/24 20:14 Pulse Oximetry 100 03/21/24 20:14 Oxygen Delivery Method Room Air 03/21/24 20:14 MDM - OB/Uterine Contractions MDM Narrative Medical decision making narrative: heart rate is appropriate. I have spoken to Dr. Cano and the patient will be sent to labor and delivery for monitoring. Findings were discussed with the patient. Differential Diagnosis Differential diagnosis: Likely other (Fall, abdominal contusion) Discharge Plan Discharge Chief Complaint: Fall Clinical Impression: Fall Patient Disposition: Admitted as Observation Time of Disposition Decision: 20:30 Condition: Good
--- OUTSIDE RECORDS SUMMARY | 2024-03-21 21:09 | XMS_ITS | CCD ---
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 Rn Field Name Role Phone Shanna Daniel Primary Care [...] Weight Dosing Start Date: 05/31/22 Status: Ordered Yvckqfal-Dbm-Oq-FA ( 1 + IRON PO) (3 sources) Lqyohqsm-Azd-So-FA ( 1 + IRON PO) Take by [...] Low,>-Panic High,A-Abnormal,AA-Critical Abnormal Performed at: 01 =[facility] [address] [place] [address] Terri Cantu MD, IGP, RFX APTIMA HPV ASCU Note . [facility] Comment on above: TESTS RESULT FLAG UN ITS REF RANGE LAB DIAGNOSIS: 02 NEGATIVE FOR INTRAEPITHELIAL LESION OR MALIGNANCY. Specimen adequacy: 02 Satisfactory for evaluation. No endocervical component is identified. An endocervical component is not commonly seen in the patient. Performed by: Марина Stacy, Bench Boring Machine Operator ([facility]) . 02 Note: Note 02 [...] <-Panic Low,>-Panic High,A-Abnormal,AA-Critical Abnormal Performed at: [address] [address] Terri Cantu MD, Performed at: =[facility] [id number] Investment Professional: Terri Cantu MD, Phone: [phone] Performed at: [address] [id number] Investment Professional: Terri Cantu MD, Phone: [phone] SPATULA-ALONE ENDOCERVIX [facility] URETHRITIS/DISCHARGE PLUS VA GINITIS (HTRX)on 01-02-2024 ATOPOBIUM VAGINAE 0 [facility] ATOPOBIUM VAGINAE Not detected [facility] BVAB 2,3 (BACTERIAL VAGINOSIS ASSOCIATED BACTERIA 2, 3); MOBILUNCUS SPP 0 [facility] BVAB 2,3 (BACTERIAL VAGINOSIS ASSOCIATED BACTERIA 2, 3); MOBILUNCUS SPP Not detected [facility] BASSEM ALBICANS, PARAPSILOSIS, TROPICALIS 0 [facility] BASSEM ALBICANS, PARAPSILOSIS, TROPICALIS Not detected [facility] BASSEM GLABRATA 0 [facility] BASSEM GLABRATA Not detected [facility] BASSEM KRUSEI 0 [facility] BASSEM KRUSEI Not detected [facility] CHLAMYDIA TRACHOMATIS 0 [facility] CHLAMYDIA TRACHOMATIS Not detected [facility] GARDNERELLA VAGINALIS 0 [facility] GARDNERELLA VAGINALIS Not detected N S [facility] MEGASPHAERA (TYPES 1, 2) 0 [facility] MEGASPHAERA (TYPES 1, 2) Not detected [facility] MYCOPLASMA GENITALIUM 0 [facility] MYCOPLASMA GENITALIUM Not detected N S [facility] NEISSERIA GONORRHOEAE 0 [facility] NEISSERIA GONORRHOEAE Not detected N [facility] TRICHOMONAS VAGINALIS 0 [facility] TRICHOMONAS VAGINALIS Not detected [facility] Urinalysis macro (dipstick) panel (U)on 12-31-2023 Bilirubin, UA Positive Negative - 4(70) +++ mg/dL [facility] Comment on above: small Blood, UA Positive Negative - 50 Luis/mcL [facility] Comment on above: trace-intact Clarity, UA Clear [facility] Color, UA Yellow [facility] Glucose, UA Negative Negative - 1999(110) ++++ mg/dL [facility] Interpretation and review of laboratory results Abnormal [facility] Ketones, UA Positive Negative - 160(16) ++++ mg/dL [facility] Comment on above: trace Leukocytes, UA Negative Negative - 500+++ Kahlil/mcL [facility] Nitrite, UA Negative Negative - Positive [facility] pH, UA 6.0 5 - 9 [facility] Protein, UA Positive Negative - 1999(20) ++++ mg/dL [facility] Comment on above: 100 Spec Grav, UA 1.030 1 - 1.03 [facility] Urobilinogen, UA 1.0 0.2 - 12 mg/dL [facility] Coding Summary.on 12-24-2022 Coding Summary. CD:[id number] Gh0bWw+PGhlYWQ+PE1FV JEyG91fdSFxxR8VR2yBZ S1KSFPBPGPSYH5LRL2na NM5LNwuX4IxedJk RvqoeBPtRY42WZr4MTS2 nVhzIKaiqV7myIWpW9o8 AlKaXA78jF17DTuxBTWq YoW0JkKbqdhmzWPn Q9tiDlQdwWBiHdd+PHRh YmxlIHdpZHRoPScxMDAl ZmJpiMraLR4lKl6qJHOn LWNvbGxhcHNlOiBj e8ngTITeFGinAZ3jfYzw X0WwmBO4BNJnz8g7Ve26 dHI+FZBiQKN3tGjpMCzj b134BxCwm0lpJWK5 dZEbKWhpWQR1T09gn3K6 FBGlSXZiLYA7yQF8fL6c dHgkmxbjZ3PgbHFlYtS4 GWW6xSPrpO8tzFcj opnftX3zUrv+J42ECJ8Y DLPEEV1AYdx6W4IuYmzk dHI+UD98EIBhMM60aNQy yCPri0bmpYc9OuXe DYQpBFF8hNbxQNrum9Ds ABYsJ14ygHWab7Q4JBQw lOatlBXqZxObrKE7cO0p UYpwynizt8fxiadn Fyouk7nqld92bH28X98t CCqxQUWrUXG1PCIyPUOk tCkfbd1bfK5jKu4+IDxj b7zdv0yriFb8PzWm ZVCqndItfHozWWD2r7Xo Wt44V1DfiOroq5DuEov1 yb32cVFks5N8rYP2ZPzn ASWhyJ3mCFglAzJ9 YUBfMrYfvX14iFIwCZuy Zv8nsOdxvOwmUK8eRYMu zhdhYRFklQ4jAIVndMGj wXpmNQ0uOBRwroxg a809KnLyCIC2TLLfpBWd L1UzhW4gYqSrZCFyCSTm M5CodRWaURxuG866JUmi NsE0GUEocxWfB4Yh GUCpnHkbZuC1n2S7Il4W m8AaobglHRG3VWvbCABu ZdVtNhLtYzS3N3PhAkv2 CGXmnVdvBD6pH3Gu YXIujdbhgnnqqWF1IKKd QAVicS29uUXkCJrsMw0p k4M9h202ARSwFTOwuI57 Ik1teNdwDPXhhMKU eI0mosaxi8pifycuWnSv HFDcMDz0WYg8FNKakBdb VrIxORD0MvT4IDK9yWHc pC3vbWnirhhlsF1s Oyc+O11qnP5xLWH6CRB2 ctsnBWLusoLpRQ73MQ51 E2FyLzlnnBYjtFN+PGRp xlLgjOziHU0vSbBk e4yth6MqEGmaO4UjTSOd EWjnLjx4YXOvINW6cLE9 oX8lZFOyUGrxm7I0vZW8 K0RdowOfwj7yz6ge GMZqJYdmY20euZJrv2K6 OZGxyPD6VHHqxUqpMzKe fV35Nrn+UOKuhGzlp8Gv Rovzg6lew3escUy4 IjMwJSIgdmFsaWduPSJ0 q1OvPp32G24wJOigMWRl TWIcLCBwQXUajPggno7n qT8zSm5+PGNvbCB3 cVE2mC3oFLSdHlM5BDtu Z655PoDhaOWrDyoqx0kl s2pufSl8VaDoFLLvlqAs oDbyNXT7p2FvOn58 Q65mGCkeQJXyIZUrSOAk LHYduNztee6rrF5mIr1+ DO4gb9xoub62rG48iDT+ ODSsULS7aBrdTBdv AFInqJ3kKXdiUgP4IVLk EtDdwQ21fCTkWUymVi1q sFnwfXeoIN7nLTOvgriw a173TjUpq0hmOUNg cJYfAAwsSCO4N42xz0Z6 AVSpMKTgJJD4lCN7qL3a bGlnbjogbGVmdDsgdmVy vDnsKCghZQfaL064 IHRvcDsnPlBhdGllbnQg UdWxAFv1D7LpJbh8TFAw rUkdLL1ijXClYZfwTe5m iWrwpYfmYV3rEQKb iqmzp747PxJkg5dgTHKo zDUkXVexHEF0A30mq3L6 GTDlNKVcDIQ2yYG2bA7k bGlnbjogbGVmdDsg gtObwJarZEjiGFmuA639 IHRvcDsnPkJpcnRoIERh yAE4GC25GT79yICor3L7 oTZ4Q6QcFPYwpsag zyktyJQ6OAMdHOUerQ59 Hc8xaZzyBo4vNKVpOQB7 TVHogBYyO2KqgF9dChXw FCCeWKMiB7QcvGVa KCakI428AZitVsA0VGMd bzVzJ9DqPWDziJniLtE2 s0Y2Bf5SR0Z9TS88ZL92 rDVin9A5kBH1P4Rw JUNofohiqtxxcWV7IRNx MSVljC92Pv3bhGrqNt2q ERQfNKQ0THQxbMMkV8Xo nW7sTrWoDHWlNWQa U3IabAWpTFffC396RTnq WgF5PDYnqhNaT4GyTJSb eYswSnF1h4C9Zk0KTDk8 NE47PI29lVScp5C8 gHR8O1DoTPBfjvayujff qRB0ATCoDQGsoH04Ym7i eCzfTm2uGEAgCPV4AKLc rDElS0PodU9yGcZh ZJNxRGAcZ0PikNNkWGwr S234FMpgTdD0FOXehrCj H6BlPYGbvWeqCgQ4x3X3 Sx0IFRPvQT64JHI5 gKK8FX95YP15Q1JjNghy dGFibGU+PHRhYmxlIHdp ZHRoPScxMDAlJyBzdHls QW8lAo9hYNNhEHMs zEgjiKPuUhPzx8guJEPw KYxnIL1niXpqB0NevKN5 BTRqm4d3Oy29N70bL1Og dXA+JUXnxXF0uKT2 mJ3rTxLnJkV0QEsrO861 KmWfrAZkFzapj4tdq1un eQx5SzU2PUJtxwZirSuj KQM5m6JeSa26W05k IHdpZHRoPSIxNSUiIHZh nBmckv7qlE4vWa6+PGNv eWV9xZT0iB0rFpDsUxN6 IKlcB514XtFisELm Tvywv6wcx0cswPx1RdSi UWTaujTqfZdpFCM2d4As Ss58Y7KriThps7RfUvo2 oh60kBMsc5Z7yZP2 B0HwFCReggvosTHhoEtk FL4dTUNnbvjsUPTkyS5w HOTwO1c1IxLgGmZ4ZMdi X6XhzzR7ILNbeMEj RZalPNY5B19lb4H6BWYt OGSzOTP2yWU6uB2lyCup bjogbGVmdDsgdmVydGlj PMkiZTeaW496MBWd nGoxOPNqpH8wHDHnfNQi pBknBP4uDFGvsjntDmTJ Pj4HNzvbJ4FNFHYOANCr TTwvdGQ+PHRkIHN0 lSgqTBvbQICysG8tMAOd Q3x2UsQpEuV7UBbdX4La VFVkoccaBp35lT9eFkDi JuY7XPjpD3PggpC8 EEEcyBAxWXjjLTX2Y35f z0T2UQCrNVKkOXS5rBW9 mY6ofHvognxhoISbbPbs dmVydGljYWwtYWxp R394UCIhgWmzOeBiSvX0 AnX0NBi8E1NzMsw2NUUl oKdmCM0zxABmZGiwJa6w jMjjwAfdAN8tVPSk mjejCFSmuD2tCMUmqRLo eZdxEY1cBTJadfwqh127 ZfRlITU0HIHrnOAzX1Zc eO6uQnZaIWJnCDDb K2CwySXuNBvxE270RAov QnQ7JRUpqcPcX7NyFTKg gCslTlP9n9S7Ex7nMNAS ZWFyczwvdGQ+PHRk QTK3uWljQQclAWTrxL1o YBGxF4t8KiPdLdD0ZZvr M5PcXAJzziaoMe70pB7g MgMqRyG6JPyzA0Ms vzR8MQAoiLOsQUghCPD9 Y14tn4L6FQWwLTCmQDV0 xYY3jB0eyHjwmuwreJJk dDsgdmVydGljYWwt HAscZ228SFHdpYpvMuPr bWFsZTwvdGQ+PHRkIHN0 nNgsEYmhNCZltW6bMSAe Z8i1YfDuJqU4POku O4TjHJUnarwmXb53pT9l LkRmRjE5TEodJ7NuawQ8 QGZedTOrNJclMRJ0B10n j1I5SKXgMXSrYIG0 vWN0aW0zdNmqvzxgkFTx dDsgdmVydGljYWwtYWxp X031DRGaoYnlEy19hYQn nIjazwA5W8JgWzbo dHI+GS39XAVsKV43dNRd sOLrf4udhBa8FgLpGNEf HHF8iArdVPqsi9NeWBOg Q55yxHWie8W6ZSRz pXjjoAMhAcTzeLV8cI2a RMncydzdt4vijpubTkbk y9pxgf43aF74U51yPXvf ZHRoPSIzMCUiIHZh iZalxu5xrD2dAw3+PGNv gZB0jCM7bH2kJsTqZhV7 GXgpE701DoOfrRAmAopk b2dur1numKt1BiRr LJAhmrLaiAxrRXN3l0Wg As04E59uNIeaFVWcYVWl XMWeQXZihDnplm4deU6c Ii8+RF2vy2ancj06 aP08fMR+OMTuHGP1iIdu WKskBKCuqD9dUDewZxL9 EAVfIeGwpS98vSTdNXqx Lo7ejMgrqGwaEU7s CUQfwohyg801KlJpg9kz NOPaaAJjZNirTAG6I44w i3D9CIRgXYJfUWS1jFH5 zL7unZzhiyuzqBWf dDsgdmVydGljYWwtYWxp A029CNRiuOykIhCuuVXe M9megfZISU9cKkniiOO+ LBEqQHW8nLmdVXaq LMHadS3mQDImG5v2XeCv YzF8EBziL3KyovY6BAVy aZQcNPEejMVXoM7gyfjm a4nnypjiMmJgNECv BVn2XXp9GNLeyFtpHjQh NDF0KxK5XUV9rZDysG3f vMqyurbxfW6jXeq+RklO OjwvdGQ+PHRkIHN0 qVpgVMxdYEHjhN5wUPNr Z2r2ZjNcAjI4QYzcA4Ry cgX2QXTwkFToGXLfrAXJ oZ7pekabw1zsfvdi YiUhVMLbMJr3VMx7ROJf uTwvThWxDVQ5AxP2MXW9 xVGlmS2crHleqjidcE4x Oyc+TVJOOjwvdGQ+ MAQdOCU8nCvrOEhrCYLl cW8qULXaA2k4CiAgKdO4 ZRwiT2HrseJ5OPNrnINt NZUpmITYvV4pqkgf t7ujukztTjXcSJIoXNm7 DHu4IBFvtVcfPrEmGYT7 JzN4ZUV2lDLsqZ7tqLqy nlulxN1lPkz+UGF5 DAC4DR36WS33A8MtHxaz dGFibGU+PHRhYmxlIHdp ZHRoPScxMDAlJyBzdHls QS2uKt9oZUFvIPMe bGxh (more content not included)... [facility] Consent for Treatmenton 11-25 Consent for Treatment [id number] 30 [id number] #1.00CD:127 [facility] US Abdomen, Limitedon 2022 US Abdomen, [...] MD Transcribed by: STEPHANIE Technologist: BETH [facility] Consent for Treatmenton 11-24 Consent for Treatment [id number] 30 [id number] #1.00CD:127 [facility] Family Medicine Office/Clini c Noteon 11-29-2022 [...] When Contact Information Shanna Daniel DO C, [facility] [address] [place] [address]- Additional Instructions: Patient Education Cholecystitis BMI for [...] Alcohol Use, 04/25/2020 Employment/School Employed, Work/School description: [employer]. Highest education level: University degree(s)., 05/29/2022 Home/Environment [...] vaccine 06/27/1999 Recorded Date correction [facility] [place] Comment on above: Result Comment: Elec [...] care after the procedure. Medicines ? Take lbid-qcg-nmidsbd and prescription medicines only as told by [...] 11/10/2006 Document Revised: 03/19/2019 Document Reviewed: 03/19/2019 [employer] Patient Education ? 2020 [employer]. Nutrition BMI for Adults Body mass index (BMI) is a number that is calculated from a person's weight and height. BMI may help to estimate how (more content not included)... [facility] Coding Summary.on 07-17-2022 Coding Summary. CD:[id number] Gh0bWw+PGhlYWQ+PE1FV OQhY04txTEjvW2KF7kAE L5DOCBSYCGHBP4UBA4tg DK4LTesJ2VcmsNt RnyosMIrHI80PLq3FQM9 rZtiHHjovX5wqROsM5i5 JfMzHJ14zR81DAocBDSn ZrH7TzCbbzdkvXDv H4isOwLwoWYtEsv+PHRh YmxlIHdpZHRoPScxMDAl AjAnzKluYH3hHi6iIMFg LWNvbGxhcHNlOiBj o6ckFXDsIDcbTB5cbHfq P6GqjGA0KJHor3q2Kq28 dHI+FUNcMFL8tBqsFUcx f446WuRzb9mbAYI1 eNUlOTclQPK3H75zc7Z4 DONiFTTmELF8sPG6eE9q qTgajbnaB8BlfZLbAjS5 NJV2uJTsuU0ziDiq okmksE0vGyq+P33FIG8G XDRPPA3MOjn7A3YzErjq dHI+MC21WGTqKL73gTBa hLXoc0btiTt4CzVy YLVjMBG8gRreOMxif1Uo RYQgB63mgLAff8O4ZMVy eHompKMcRhQucGN4jB5p JHzuoixgt6nqalex Mvvih2wlor38lM65Y21q IMgtTCUmTUI5FYZmPOCt nOxzge4ikQ1cXk0+IDxj n1jtm0zieLf1PcBl BCOqzxLvyDwsJBA9p9Nu We73N9HbrDffn0NeMtr2 gj86iKIbm9Y8zBH4YSlh NBDwxQ5tOOnqAxQ1 GSWsWvCjjN92hOByMJkn Le6ztUkfyMojCP3sAJPf vxtiGKAhpH0wTSPtiDZk rJegMK2zDLAgydqa g519JhTfPRC7RZYsgZMd D9GzjF7dDlGhYWFpHYTv A7VzjLHmMEioM928PYvy TsW0QUCsboDmA8Qv NWMycQtyYsP1g5I8Wa7K o0SniycvMPL4KLhdQVX6 TkV5GnCmCaF8U6BwKkt8 OFFraUhlFQ6tJ2Kp UIXdjvwbspgxtBE9IEDn BMVnaO70wTYrHQriBg2z g2G4y772LKNuRZYrmU40 Rh6cjQdxKHAvuQLU oJ6pweoyh7ggfvmlTaFt INGrPGj9BKx7RZPbiFrk ItOvMLD4YrH5NKT5lPKf cP1jyPvolbndfI9w Oyc+B61ysB3eFLU7XFE3 fbajPNDvdvHoKT43BD53 H9ByDpryyIFtyIZ+PGRp oqGsrNcuFM8qQyYk g7mhz5LaOIanP7PrLJGi WMexIpx2LDEoSCW8wRW4 sT5pJGXcCRxdg2I4kFA8 I6QikfCfyx4tx9zy RJIrSHqbD94uuMZgr8C3 CZUkqLK2UTZlgOidYdEo dX54Ily+DGOafCdza6Wo Uaofz6dkw8nntGw7 IjMwJSIgdmFsaWduPSJ0 d1KeHo74O35fVJdfUNGc HONzLGDsFXIopPzvyx0y xX0cQt7+PGNvbCB3 lYY9aO8oTADuMrG5KQtn B437RoDiuAOkLkbeu5it n1oztLc2WjXpEBAjujWi pYaeIGU4z2FhGe37 E16zEPhzDZUhGBFtQXYw CLAevIhypr9afS5dZc4+ MC8er8hemo50pW93xNG+ LGKvAJS0qXyaCYjh VXEwuA9fTVrqAkB2LLYy BpSqpW72lJNuLZjdYf9p iCaoiTzpAT2yVJLbcvri m650HoZpp5dlYODy tEQgVUzaOKY4W28qi6C2 TJPnVTFbHJM3kCO9hR5h bGlnbjogbGVmdDsgdmVy qQnpQEmmDKtdP131 IHRvcDsnPlBhdGllbnQg IdImUKq3F7ItMtm1UFWv pDzlMT1bbOAtIJryUl2j sYhkvCcoKZ9fOFAv ofuoc951BkQjh1ycHFQg wASuMOmsITS8H12eb3P8 IVUjATXvALY3sFE9xT8r bGlnbjogbGVmdDsg hxPqfOgpHTxtEVoiW113 IHRvcDsnPkJpcnRoIERh dPO3OT52IS48eOCoi2K0 rZI7U5ViVNKldjmq ydckcCW1GLCtTHKsgX39 Lv4joPiuXf9oFIMsZES7 KEDdeDQfJ2BtfX5xXaHw GIDlQLDcY9IfyWQx DYbsP028YMquKwV1AKBi zxYxT6DyOQFgiQtaRgQ2 b5A2Kn4SW7S7NF23FM98 kLFnp5I9qNN3X1Lr DUXcsnbwrkqwxZE8SQVv PPUzcX11Bh3uuWhpAc5b NVLoCAT0SDQjlFCcI7Fy cE1eBjTjBSZfZVBp O9SmuYNjNVxyY571QEge LjU7ARJhvpKbC4GxJYAm rJzuIjI5j0K3Fc0OSWm2 TP90HG67gOPcm2L3 iLN7I3SaJUVjaekurjmj jOD9FJAbWOVvhP78Mu1p gZjzDt5eMYOeDWV7MHQq fLSkL6YpcB4tMbOh IQXcIWLlI3FywFOeEEry A566EOmpIwX5HXXkidPg P6VkXIBqkZjxBfY2n2J0 Rr2PJYQjLL06JQA7 tJQ4VI41CF89Q1CmJmge dGFibGU+PHRhYmxlIHdp ZHRoPScxMDAlJyBzdHls UN6gWm6ePUYoDRQa qWfubPYlNkTnu6mxDAVb DLebDK4dyXwxV0BclWK7 VYUfh9s4Ou90I33aX0Cy dXA+HLGsfRQ9lFE3 nC5qSvGiUyG0YOohR777 EmJfzRXkZhnij8cre2wa bKc8WlH8ORRpjwHmcFip BEM3k5ChOz36B46z IHdpZHRoPSIxNSUiIHZh zHoevo4dmG2sIr9+PGNv wAW5bDN7fD8sZyCvOuV7 HUznF391BlMedWVx Zqqnu1lgw9oyrCz9GtBu AKCnrdFeoKmiWGP2d6Ff Xo22C9HwxCrae5UpTpv9 pc60gGCrd1P9jHK5 U7BjXPQfqksinAZabWei SQ6cLLEwfkayPTCerB7a MLYyB8s2OjFqOqV2GRpc B3LjxvN6YHHcwCYv XLpoDEX4T75bp0X9HUNw CZTdRXO1jCK3nS1fzBdj bjogbGVmdDsgdmVydGlj ITayYVlqE896JSQt xFchFIHpaL8zVJGpuHAf mInwEG6pDCAqnkfnRaEP Cu9MPxfwJ0QNUSRNBVMb TTwvdGQ+PHRkIHN0 eKkhOVakKPYrqE1qJJIg K6k4FnPySvR2AEvaO5Fs DMEltxxdUr02qF6lNtOv JbD8CWrhM2SjonS9 TQIsmYOwYUcbSMM7D51q l8P1UJMlSSLgXNA0oVC8 gX8fiZkquarsiKLbxQnk dmVydGljYWwtYWxp X868IRKgzWpcQqEeXlB4 CjC4PMf0P5NaIkx0JUBn eAvwGV2udYFaGCuzZo9d zHvehQtxVX3dJSWz puecDCZxkH4kVWKbuGAp dAzpJY2zJYUgeudou568 SjYcRJC8TAIudVFdU1Ax gQ2nThPkMQEcCYRg I9VilIOvEUieG027AMfj NcQ8IQNfbjTvL1CpKBLo bXihDrU1p1W2To4xLQIP ZWFyczwvdGQ+PHRk EGU6jDqtWMfkWKBreB4c BJRqY2w9XtVyGxJ0LHtg M3DaYBUiiqyfKq48aH0a ArTlOvG0RGorC1Xa ccQ3LVWumKRfYYxfEMM5 I11ye4Z9LESvTDAmYDE4 iMA5eQ8cqSlmucatfNAi dDsgdmVydGljYWwt VFkcC149XWEunBwpJxYm bWFsZTwvdGQ+PHRkIHN0 eQpoRUtkJHZqfE9uXZSl K6l5UqUsKdY4KPfp Q4TnPDHdcehfYi62xM7n GsCjJhX9QGpsR0DioeQ6 QVEgmAWpNAdlZZX2Y78z q9K9ZGOfCVHoFVA7 mAU4nN5tvTlrcrkutUEb dDsgdmVydGljYWwtYWxp B641SIFegZvzLzfuXdON tp4hPS5eLbglsGN+ FB92ml49K8GtSrqwGxo5 WNUpZGL8bLC4bM8oLVVc VMalw9N0lJL9O4ZtqlXs xa9ht1qoTATsPIno L05xtYEdx0F5UNIwtGK4 LKKmjGdxViGawL41Jkc+ FCNpeCmrp3XyHgonw3jc l7lofJc3YbCcLFBe pkToiEnaAIM5t7JhHu58 P30pXYthMEKfYBCiZMFp EPMhvVzfuj8rwG3uCs5+ UGSzjYB6rWE8bT7u XyHtEdH0IEjkH204WhWa xUNkRjayz7owm3jzdGm5 IjIwJSIgdmFsaWduPSJ0 r7IdXs01U6FttZgb z0RtHgm1vx84uCNgv3D9 sVN8K3TlDEZhhncslPIf aMkhAJ1fXAVwvqipRKDe vB2vGZPaI8a2QrYi RkQ7NXgxX1GqpxW6TSNz xWNpCOJwfIHXkZ6jdabp p9uxppkdYvGjKOJnPKf7 SEz0LCTndJlfXlUm KMD5ZcA3QPV2cQMvoT8a sSpenjqkbH5iMjw+UGh5 a2prtPPrWM1bkOO1XU61 UE75dOTqp6P7mHO0 G9FmIWEsddllxktfkRA4 YPSqDQOxtL54Gh8ogYgd Sk4dPTVfKGJ3CDBplLWz F9ZafI8dTsIaEAQg AVEqD5SvhOPwLGyxL155 HCbvHsA8KOWqmyEcK1Gr ZNZduQqhGjK6r9Q0Dk5N JN12VG39LR64tMKd x3A9zWF4B8PbFSDctrrf vsihaGV9HCGaEXSflQ11 On1rwOfsKb6mTZOzBVK7 YGAuuEMqM6CjsZ7a UvBmHYOnYPPlN5XdaHMs LWggI734WQwoCpH7GXSk mcVlW2LyELAlrEzsHpW9 k6J3Cc7MNy36XB84 YZ53nECti5S7pYY0H6Jy UQZcsxdzqklqcSS8TQTs FOGqjU93Qf6kdGtoSr8s QFZcWIF6XPYqvOOb F4SdkX8gJbYeZHRoSUFo M0AwbAGbPIhoH415AIqn MqX6SYUwupLpJ2YtFBEr lNrbVzI0o5H0Tu6M NEmwwim3F9ChEltseTW+ DZ43DZVkQA87pUAbjMLh m6tfxTn4YzQlRURnGXT5 yHoaCHswn6KqNHNl Y29s (more content not included)... [facility] Lab Miscellaneous-LCon 07-17 Lab Miscellaneous COMMENT Invalid Interpretation Code [facility] Comment on above: Result Comment: Test Ordered: [id number] IGP,rfxAptima HPV all,16/18,45 IGP,rfxAptima HPV all,16/18,45 Note WB TESTS RESULT FLAG UNITS REF RANGE LAB Clinician Provided Cytology Information No. of containers..01 ThinPrep Vial DIAGNOSIS: 01 NEGATIVE FOR INTRAEPITHELIAL LESION OR MALIGNANCY. Specimen adequacy: 01 Satisfactory for evaluation. Endocervical and/or squamous metaplastic cells (endocervical component) are present. Performed by: 01 Maru Dong, Bench Boring Machine Operator ([facility]) . 01 Note: Note 01 [...] High,A-Abnormal,AA-Critical Abnormal Performed at: 01 WB [facility] [address] [place] [address] Terri Cantu MD, Performed at: [facility] [address] [id number] MD Pepe Murray Performed By: #### 1 [id number] ####[facility] [address] [place] [address] Lab Miscellaneous-LCon 07-12 Test Code 058909 Invalid Interpretation Code [facility] Comment on above: Result Comment: Test code corrected. RS 07/12/2022 06:39:13 EDT Performed By: #### 1 [id number] ####[facility] [address] [place] [address] Test Name IG PAP APTIMA H Invalid Interpretation Code [facility] Comment on above: Result Comment: Test code corrected. 07/12/2022 06:39:13 EDT Performed By: #### 1 [id number] ####[facility] [address] [place] [address] Physician Orderon 07-11-2022 Physician Order [id number] [email or web address]:127 [facility] Reference Laboratory Testing Ordered By: Klever Peralta on 07-11-2022 Test Code 663937 Invalid Interpretation Code [facility] Test Name IG PAP APTIMA H Invalid Interpretation Code [facility] Nursing Assessmenton 022 Nursing Assessment [id number] 5#[email or web address]:127 [facility] Coding Summary.on 06-03-2022 Coding Summary. CD:[id number]:[id number] Gh0bWw+PGhlYWQ+PE1FV KGzV14bxVRmuQ0NI5lMP Z9XCPRDFZCOMA2LRV5vl CD6TTqgE5KhhyUk GxqihUVePX31GTc2RCG9 yGpbAWdclB1seFJmY9j5 FuCnMP20dX11NJunVGPw ByU8LiOicabnoEQs I9tbUtOcoMAkJcn+PHRh YmxlIHdpZHRoPScxMDAl GxMfmFflXO7jEt5mMBSf LWNvbGxhcHNlOiBj c3pnQZJfOShvSL0eoNmk V1SmdDK1QEUec4m7Gt11 dHI+COXcJTA5zZqrZThz l747GfLxo4dvSVP4 oRVuXEavUZJ0D42bh3X4 HLMeSEMnBYN1ySD7nK2n aWtkhvwfP8FggIYmDuC7 LQV0cDSnrN8guVcp pffzxC9jUdu+D34FIG4J JUOHKT0JHpn7K9TtIqud dHI+CQ43CHBdUW20tNHn qYYbp2yvbGy4EjRi JGRqEAE8oJccWNrwl9Sq YDUhE80evYMkv8G7XKDw wXwumZPwAwPnaHJ2yN5y RJfhyurpf9taajge Xnpoc9ojyh73pU49T31d SWibNRMdIYO2OXEkFMRq hHxlfr2gnL4dIq1+IDxj y1vdy9lxgXt5BiVk EZQzzsMvgOjwFCR6i9Az Qg22E2CujQxta1TtAgu8 eb33kYOgt7C2kRA8OWut XNAakV9kOKkgKaX5 FHKoAuUgnB43gULiOPcs Tx3qqWmpzPqkPM0fFTYb yjdrHNExbQ9jXAEgmDVn uOblTN1kENAbkypj u995FwUcPXS7TQIhdJGt S3NezY3yYtEuCRRrYPKb P7VjwPDnUWdaB941EJxf GsR7XAYdnjRmC9Ef AOEeaLdmJsO6h8U7Pv0L z9RfeajsNSO5DTgwJAS5 BgZiXsXhZlG6A3QtTvn4 SCIwmZnvFG8dQ8Sd XFTumgbmmlbuzWD0YXMx FQGmsC02pCFvEWtmRn1a k1H9m459DTOsCVYvjG92 Hr5tyXxoJKAulOKH mP1iqdiok6nrbpjdYaHo YXWiHNg4EUv7JLYblIah YbVfHWR3NxC7HGG6zXOh kQ6ixIhlfehyaN7d Oyc+M20vyR6xJVM4UHF1 iuqmJOJoutVhCU71NI01 S6PdHekowYLyhYD+PGRp foTmzAvoAF4uWhEz p0tol7DnEBdiH4XqVDVo GSkiKpa6QKVxSSU7iDU6 pT5hIGJaUPakj4O5cTD9 I8MbahCesj7ag8gq WCMlKBnpZ98pmGEho4Z1 ENWwbFI4LGUmfNtrYvAm wA44Fro+ATGwqWyvv6Id Mnlno2bxh3zofJs2 IjMwJSIgdmFsaWduPSJ0 a4NySf13B05hCMtkGQRe QXUxGHFdZPRehAcxum9g kB0zIk3+PGNvbCB3 mRJ5xX7aRCHkBpC4VRpj M609RfKawLKwOzqjx1bo j7ayuPh8SnAeHOExftEl xNbpZUK8n6AsYr93 U71sNKgdEOKfFOGqJFMh GYPcfBaexe9ddX9fSv0+ MF8ts5ntbd93cD53dDJ+ QMEwIXB0yPpeEZgz NNEqiU3oMSvgTlH3RPNv FdJcnP52iMTiTGsyWw7t hNyftGddRQ7bAOJlwfvz x208FtOxr7clWDIe cFMeCLbiXWP5W74sq1Q7 JUNpLSZuPRZ1yRN1tH6f bGlnbjogbGVmdDsgdmVy lFopZKdpKZoqZ194 IHRvcDsnPlBhdGllbnQg NyBmLXk7M8YxLvq2YTUg yDwuGO0huAChPKwgXh5t nAkxeIctYO1cMNOt fuppb027GcEcx0lkHILc zKGwXAymROK1Z19bd0X6 ERLxTQMrHIX2bCE5yE1b bGlnbjogbGVmdDsg ulGfvPafSYnjEEvhO403 IHRvcDsnPkJpcnRoIERh qBZ0VM87AG51nXRae1T3 tXG6L4JrRMPmqswu utmsoKV8ILKsCLJpiI94 Ww7emTpoJu3xFVAqTPM1 VPBngWZsA5XihR6pBeYq YXUsDRZmI7SqpGFs NPwvQ873XIpiZwC7CUDk amNkM1BnHAJnlHjkYyZ5 c2B0Mu8KN7J9XY20RU01 pHNko2T0kDN4M7Pm DXYzorvwhbnpdGS5MVLw PBFuqC51Nt9eiCfaMn2c XDKsRQW7JLOcuFHoE4Jk mV8gBdZiPCYtGOPn W2DlbSZbIPrdO118AHdn PkU9YLUqosDbX4LyWGBu tDhsNbV8i2F7Iy6DZNf3 TL96TO87vAFkh0B0 vZA1J6StSQPoyrpiylvr pOF6GGEbOEPebW96Hz4v hPdfJk9zFQGhOBM9PGCd dWFfB1XaeY3hWeAl SVAoWQEeG7UelSLsJUgb X184TLtfZaV2SBMyhuOn W2BeSJQcrEcrWqY8r3W0 Va4JHJZvUK29BOL4 jPS9JU70EH69N6PpKcbh dGFibGU+PHRhYmxlIHdp ZHRoPScxMDAlJyBzdHls HJ8pMm9nUKXyEFBx rGrnaIRqBhOsg8nnXKZw STvsSW5kkMbtD7NzmZV1 NCLcj4e3Yk10G30oV1Yc dXA+UIYabBG9wWF8 cF4fCqWmCfX1SUmcD308 IzTmoKRaPbxdf0eua5an vGd0AjO2RGSmdkLjkUtk OMG9x8KrXh36P74s IHdpZHRoPSIxNSUiIHZh fQwwda4fnG0hEg5+PGNv wGY5tIY8wW4rSgGtDxB5 CGpdT550VdUzgPFt Zhdzm2vqd3hjcCl2EqHk CMYsdfNmvAlmXBD7j2Mj Bu61F5VcsQcmg5YzJvv7 zz83yUAcm9M7wAQ1 C4OnODNiegfxiDVonBii SA5oLRMlbplpWYFqcS5w CSLmZ1a4HhTpGtG2ARmz K7YjzqY6ZWQmxGLn BVpaMDO4W78yr0B7UFMj YCDtBUD5tKQ6qE4anDsw bjogbGVmdDsgdmVydGlj VCmiCGrvR103VQUl vYfzKYZamJ0mCHQskCIm oGnhBW2tYYOmeoxeGzGF Pe3LFxkaY3BZJGNGWUKm TTwvdGQ+PHRkIHN0 wXwbTXjaOYBwnM6oOPMd D4o4EfMrEhP6PZdvJ4Gc TELmyotdYg93gR8wFbLh TbV4GJzoY4JnqmJ7 ZYDabCMbNSkjNWF2F71u w8Z0ZPGwSYZwGQD5pFT2 nO1yuVycneupwHNduJfd dmVydGljYWwtYWxp K178NAAyfSabKiEiNzD2 NhE6AOm3Z0OcBtp4UHLy bHrjTM6cqJTvKYwbOb7r vAkiyRmzHO8kJSOv nyjuUVRdrB7wBVOshYDd fVklAW7cRBAfeccjv007 XmEnRKM8BUQlrZGgY0Oy yI6zEyZkOCCtMRMe S6XguLSjFAbvY992SBhd YdW8CZSpgwXyZ5TvYHXq zFxbBpQ6k3F5Aq8gCKOJ ZWFyczwvdGQ+PHRk JNT0cOzwKBzbMSEzbW0r BKEuO6k4JzPkZbI0PKfs R5UqSRXjssblAo58mS7c DyLcPqJ7HXcgJ9Tc eyF5MDPloEUhOFgeYDU6 D65un8E6ROEbGYKdYWA7 mAI4yQ6hhSwoefpiaZQy dDsgdmVydGljYWwt CCeqF122PSZpuSavJbOp bWFsZTwvdGQ+PHRkIHN0 qSlgTBqvKHZbyL8rQVHw H1b8AhFxXrE1CFfs R0AzSCMdzuqhFi29tQ2t JnKpBxE1HRfsZ6LbkvK2 CAJdxDNbDTkxPHC9Q77l g4N2ADXbYKRiGJX0 kYL0rN6pgIphyntjkNNd dDsgdmVydGljYWwtYWxp O545RQDwcAiyKmoxoVI6 aWVudDwvdGQ+PC90 ea04B0RiThugDtt0MHYm MMV9tVO1fM9qEXFdWLps b5S6vVX7A0LmwhHtne8f o9pcTIVaLMpmO73y gCGwo1S4GDJtaUY6LSPl pUxdIzPezZ20Xrj+PGNv jXupq8RtBiptm2znf0jj mTp3RvEySHNzjwLp sTtyTSV5c4KpHy37V36t IHdpZHRoPSIzMCUiIHZh gUbqcw8abJ4nZv4+PGNv dVB7eOM5qG4dDgBl EvY2COapU201XwQqkSQi Pzlbu3uwl8mwpXk3HyUq QXKxcyRnlFltRUB7b4Rx Mz46I1CqjFamg8Op Fuw8pq49yEBaq4B0qYW4 H2LaMMKcjejygNOloAsw MV6vHAJegqfsEQKcwE0n GNXcE0w1RvTpEdX7 PFhkR3JplkL3QWGboLLn YEHzpNPDyK1owdggj0zb sfnpGnHhFGVpQRm3QJv0 LWFsaWduOiBsZWZ0 ThG1FEH8lJPtuA4ntWuh dvxqyO0dBbu+IVi5t1yp bOXzIW5ouKF9FW36VD23 eOZnl0X3aPW7T6Am KYIepqoamjxqxZS2GWUh QXHshR61Mp9luMeaPm6n OHNbZRN3LRLcoJTrQ2Mq yZ1cYeMdHDQiBGIl R2RapCFpWDzoD508FGnp FoS4GKGdofVgO7MiIVXt wKtkNfK3c1F2Zo0KZL22 KU45AK73lALal3Q5 cWE9R0DtNOVglivoxxiq dJR7AWSvRQEnxR97Im6g gDurEq8nPUEwFTF5JIPo lWMgB0QitD6lVlAb DSNhETRdB4NsvRDuELqx U076RKycNbV9WWNmpeWw B3DcWPPyqHoaBzH6m2T2 Hv8KHq26AG17TX28 uHIea5H4qQV3L2YxXULj hboxvfswhKK7IPQrKPZh dW95Uj0toFjvLw4cXSUg PVM5YGHmeOMfU3Th fL5yPnIdCOYrUQFzL7Gu qJQgKSmwF525KHhcLqX9 AMCdtvWaU9KtLLSzwOcl KnX5i1K7Ba3GXHkl ycv1Q1IdIznvgVJ+PC90 MBLzJN55rCXxbGMzd5rf nLb9GnSnWVQaXAQ2mOja DEehe5XfLZTgB36g bGFw (more content not included)... [facility] Nursing Assessmenton 022 Nursing Assessment [id number] 5#[email or web address]:127 [facility] Delivery Summaryon 2 Delivery Summary [...] the room. Devin Pereira M.D. Dictated: 05/31/2022 [id number] Transcribed: 05/31/2022 [facility] Comment on above: Result Comment: Elec tronically Signed By: Kelli DEMPSEY, Devin Collier\.br\Date and Time Signed: 06/02/22 11:12 EDT CBC w/Indiceson 05-31-2022 Erythrocyte distribution width (RBC) [Ratio] 13.3 % Normal 10.9-14.2 [facility] Comment on above: Performed By: #### 2 [id number] ####[facility] [address] [place] [address] Hematocrit (Bld) [Volume fraction] 29.4 % Low 34.0-46.0 [facility] Comment on above: Performed By: #### 2 [id number] ####[facility] [address] [place] [address] Hemoglobin (Bld) [Mass/Vol] 10.3 g/dL Low 12.0-16.0 [facility] Comment on above: Performed By: #### 2 [id number] ####[facility] [address] [place], [place] [address] MCH (RBC) [Entitic mass] 29.0 pg Normal 27.0-34.0 [facility] Comment on above: Performed By: #### 2 [id number] ####[facility] [address] [place] [address] MCHC (RBC) [Mass/Vol] 34.9 g/dL Normal 31.4-36.0 [facility] Comment on above: Performed By: #### 2 412180 ####[address] [address] MCV (RBC) [Entitic vol] 83.1 fL Normal 80.0-100.0 [facility] Comment on above: Performed By: #### 2 469793 ####[address] [address] Platelet mean volume (Bld) [Entitic vol] 9.5 fL Normal 6.4-10.8 [facility] Comment on above: Performed By: #### 2 230835 ####[address] [address] Platelets (Bld) [#/Vol] 192.0 E9/L Normal 150.0-500.0 [facility] Comment on above: Performed By: #### 2 831015 ####[address] [address] RBC (Bld) [#/Vol] 3.5 E12/L Low 4.3-5.9 [facility] Comment on above: Performed By: #### 2 568963 ####[address] [address] WBC corrected for nucl RBC Auto (Bld) [#/Vol] 9.4 E9/L Normal 4.0-11.0 [facility] Comment on above: Performed By: #### 2 317507 ####[address] [address] Discharge Instructionson Discharge Instructions [id number] 0#1.00CD:127 [facility] HEMATOLOGYOrdered By: Swathi Weir on [...] Inpatient Clinical Summaryon 05-31-2022 Inpatient Clinical Summary [address] [address] Clinical Summary Person Information Name: NADJA RAJESH Patel Angy/[facility] Age: 26 Years : 1995 Sex: Female PCP: Shanna Daniel DO Marital Status: Single Phone: [phone] Race: White Ethnicity: Non- or Language: Uruguayan Visit Id: Visit Reason: WATER BROKE Speciality: Acuity: 1 PP Enc Type: Inpatient Med Service: Obstetrics Arrival: 05/29/2022 07:02:32 Discharge: 05/31/2022 15:30:00 Dispo Type: Home (Routine DC) Address: [address] [place] [phone] Provider Notes: Diagnosis: (spontaneous vaginal delivery); Shoulder [...] Follow up: With: Address: When: Dr. Pereira [phone] Within 6 weeks Comments: Call for any problems. Support Group first Friday of the at 11am Call Dr if fever>100.5 F, heavy bleeding With: Address: When: Services [phone] 06/03/2022 2:00 PM Patient Education Information: [facility] Inpatient Patient Summaryon 05-31-2022 Inpatient Patient Summary [place] [address] Patient Discharge Instructions PERSON INFORMATION Name: RAJESH [...] CALL 911 Home Treatment: Devices/Equipment: Special Services: [facility] Additional Instructions: Physician to provide the following pending test results: None Follow up: With: Address: When: Dr. Pereira [phone] Within 6 weeks Comments: Call for any problems. Support Group first Friday of the month at 11am Call Dr if fever>100.5 F, heavy bleeding With: Address: When: Services [phone] 06/03/2022 2:00 PM In the event that this physician does not participate in your insurance network, please consult with your insurance company to find a nearby participating provider. Comment: NADJA Jain CAMIELLE M, have received the attached patient education materials/instructio ns and have verbalized understanding. Patient Signature Date Clinican/Nurse Signature Date MEDICATION LIST New Medications [facility] [address] REGAN, [address] [place], [place] [id number], [phone] ibuprofen (ibuprofen 600 mg Tab) 1 Tablets [...] to serve you. Thank you for choosing [facility] Insurance Correspondenceon 0 05-31-2022 Insurance Correspondence [id number] #1.00CD:127 [facility] Coding Summary.on 05-30-2022 Coding Summary. CD:[id number]:[id number] Gh0bWw+PGhlYWQ+PE1FV INbT88pxUSkuF7EG0jNJ F5GBSOAEGGEAY5DQW6vy ZX2RRxdB5UomzZb RqreaEQsCL95OWn8BYI6 uNwzGTdttJ4ctDNsY8w4 MaStVP09bT71YMudFYMw DqK6MzQmsrmneDFt D8cxMeYlaCUmPqy+PHRh YmxlIHdpZHRoPScxMDAl RlQriEyoWB3gSw9cAPQc LWNvbGxhcHNlOiBj e0gqDUXbOBpiKD5unKva Q0FckXO0SEFvi4s5As04 dHI+QMScXXP9dLyaAUud g329DgXxg0diTCB9 fWBePRsmXRS3H99qb5K1 WOItZZUsXJI6iVE1eS6n lVbauyjxM1NidEFgSbJ3 OCU4uSXzhH8gzGzh wvmvnA0dCan+P15KYB4Q LBBOUJ4OYbk7E2WrVoqs dHI+YF65RFDqTR43yPCp zGMnp3gpxCm9GyXr PGSuGUF2wEpxBZpaw3Ve JKGnK18zxTOln0R4IYYy eAwahOCtReXtsMP8nX1w YQfoycuqg3oaewjr Qccdq8vrzd22wJ67R78h OPajYTGgNBH4CPYpDVQk fNbekt0bmW7nFs6+IDxj u6bge5tjsFj4TqKn CXSovcCefNzuCER6a2Tt Bb56T9WusLbfy8HnEhx9 tq49lFRuo9C0yRD5DBbr ZCQzxJ4qSNuiVbR5 ZRTbHiPccJ70oNNqXWik Ea1izDdbdMdjKR0uPCYn nglcZUEucF5oRRQwhTMm eZbzGL8wFNNadrim q695JrYkIKB1KDMovWMi Y8EvvM1sSoBqKSEpNBAs C3BwtCBoXHyrY245KHpp QkF4FWAybjYrS1Ih UXQmtUbxDuH6d4C9Nn0H m5QmlzrbLIW5WLpuBDL9 DaE1QbWfSpQ6R7ChSga6 MZUgeWeaGG1bR7Rk QKMsslxsqvkfjTD8LRBa NPThhL17oZOyIMvtGr9m a0N3p139EOXgUZKdxI27 Ds2svVbfJJLdhXQH fZ3byomts7wmewwtLfUu KQWmRCj0FBq5JEAojPyd RvXpCPJ6HqI9RBU7aTDz kF0alJafcqngsL8x Oyc+P70wsA5mKOL8DOF3 aklrONXybhGsIX94JE73 C9KwLglyxMFlbWW+PGRp fxQjhFcvJK5oMaIv d8cgr7LzUFzmH2JpSVLx LLelBeh6PLLrSGM0nQN3 sO9aDRDtAQpff8U1eGE6 Z2OozxZemq8kb4jm UPAuJGzfL47dbVZgv0V8 AAEdkAS3RSMteZgtBcBk cX46Lym+HNVkwJdtk7Fi Ehdcw6ymn1qlzCj3 IjMwJSIgdmFsaWduPSJ0 f8SuOc81F69aRFrrQXOt SIKeGCJoSBSbgApllp1a xU4lHb0+PGNvbCB3 iUW0kK9eXUHpNuO5JPti I619VuJmfDYiAqtsw7pd i7xbqDf4TsAmIMEpoiUj aJxjLLU6i9NkDc86 P14hPZijSQMkQCKmHFAc PYPcnBnmbn3smS9yYc9+ VP8jd3wcza53eW47mVF+ ZGEtRXC5iLssLCcl WKPprL7sKXoqMaG3ICYf EqTocV10mMDhOCtdRa3a kXlrhAhdRD6uHMDsjsvp o369BmBld9jiWOKo iBZbHYdnKXZ2D73yy9X8 HJPtCBSaMOY4nJL7zK0p bGlnbjogbGVmdDsgdmVy qRsaYLrrIJzxI929 IHRvcDsnPlBhdGllbnQg HxKvMTp2F2OeRxn5XRNa zAwgBN2kfTLwXDsjQx6d gUfwuUnxDW4wJAPu evfxe305BmEzo5vaWXFl iDBaLFlqEHP6C78ko5W7 QPCmNGFnVLK3aNT4bQ7a bGlnbjogbGVmdDsg ziDmiDyoHHqjHRnrR757 IHRvcDsnPkJpcnRoIERh kHP1DV62JG15xLCql5O9 hDB5R2JeKUWajtqd rxeuwIW3GYKyMAIkjY14 Wk0duXdyDa8nHZEtHIE5 TFTatUEiB1OmeE3lJfOr NYEdFRZzL8MakMGg UPchM708BKtjZdC7KEPj waXqE8RkHYSaqQkgJkB6 t1K5Ed5ZS2L3MG11UW78 dOObx8Z6vBR2F0Pd HMNusctroozhwFM0XJNd ONCwjX77Ab7vdCluUz3y NXGpIGK8JSBerOLuE6Oh wY1xUlQvBJUpPHEt S0VqfMGhWYpjO678CVys QiS1KNTbayYwT1FlKZWm lYcwSsG6y1K7Da1UJZb0 MD47ZG46cGRyk2L9 lRL8S0NdOGGuxfdoqxhk hYI7UGKzSYRhrL23Pa1m pCspQh1sSARmEKQ4TMVa fAQhO0FefA2jLgXl FYRnLUJfU2LhvZVoSYgy N690DYacJpX2KSTuemUe E1EjNWLbyIzrNnL3c4V5 Qg4UZGVrMA22XLB4 jZG6QH28FH97G2IvIxkc dGFibGU+PHRhYmxlIHdp ZHRoPScxMDAlJyBzdHls LJ2qNe8xHRRwEZKi kQcreUZrHpZpm0hjMYDk SGjsOJ3gsSslU3NofGE2 ZLEzk5i1Qa69E79gB5Dv dXA+TMAagNV2xIP4 rT8mCmMhEaI0CKcsS118 LxNilNQtWuvie4qvw2bh rVq2LrM7XRVwyxJalXgi PKK8s4XeZt32G55g IHdpZHRoPSIxNSUiIHZh rZauxe4huN9fBb6+PGNv zRL5aFH4nG6dKiEkKaF2 NRftS180GaCrqIEm Rnric9uwc6eosSn3MnSz WSSejjGqpDcuGVZ8e4Bn Kr49B5HcnRmiu6BxRkm8 dd05wZRlm7B8wLC6 V2UfUULdcrpkeXUeyApp EV9hOWEvxtrvNWHueN8u SLPzK4x2EjRhPkJ1EDdh Z8ExezT8NKTwxYTu FGshSOW1G05uc0M8ZJOz KLIsOAT2tZL0hL6eqXzr bjogbGVmdDsgdmVydGlj ZBgvZUbrH112CAUu sItyCQMafB6yENTygUXe mUojBZ7cMQEoxjmjSrZC Gx1FMahbH4RQVKOXISBk TTwvdGQ+PHRkIHN0 uLykJXaeVUNtjM9lNNOt L7s7DrVmObI2YDxkA0Pm HDDmutklMy36lN7iYpCo SzV1KNiiT4ZmogP0 TARxsUGoNQruGOX6V66j b2T0TUEbSRJlAUB8wBR8 gI5geXsqcmrudCDqyBdx dmVydGljYWwtYWxp U678DEQpnBrzUmRzFiM4 GyU2GEq9C1GqHyk2ALCs tUsyFI7vbUSsVHprRr5q cDypuLcfFS8fMUOo yjrbZHCykG3aVYPxkGXg eWcfAZ2oJGUhotkrw502 BzJlTGZ4NBPwpXIuE3Te yT7sXaXfSBAmXZCg N1IpjPTmULbvY401ZXfj YbF4QPJyenRpC6CtJQEe oZksJdZ5g5B0Jg7vPBFF ZWFyczwvdGQ+PHRk WVF2iNveFEttQIPtfB3i CJAiA2q5MqBfDgR8LZae T4BwPBDmdpovIi74tY0z DaXqVjA4KEsjQ7Pv mwU5VTKprPTiXPegQFK1 J09dl9K0UJSiHCIxTNL4 jUN4pI2txNwsagtpyQQb dDsgdmVydGljYWwt KSgnZ419BMYwdEamEsVk bWFsZTwvdGQ+PHRkIHN0 zWtdMDmyTDCfsJ5xSTMx B7m7LkWlOaJ2XQvd Y6TxMOOescueDw33mT8j XrZgPaE0MGrfQ4OyqzO8 QYRtxMQwQXkrLKQ2I51j a0M5HFNgXPInRCV6 rNG9eB9ciRqynavqpFPe dDsgdmVydGljYWwtYWxp I658UQEngPgdDr9JUICk aWFnZTwvdGQ+PC90 nq06U1ErQsglVdj7GZCr DZY2cRD0lI6eCSTzWFvl x9N0uUU5T8OueuLgvi3w k4jhYAZsYRsiQ71g aYVmh5U1PWGgqVF2BTGg aXyuGvQeoC17Jmu+PGNv qFana6PvPivrj3cbe4ja bVw9DfVuDXPwdcRk aWgeVQH2w6WzOz38B08k IHdpZHRoPSIzMCUiIHZh vFuhiv3xzA7hGz3+PGNv fSN4xCQ1eE6dIdBu AiU1RWaoH932GiTntSBs Esikq5mkf0kdkFe6XvSf MMXbwhEieMcwVFL4x4If Ms04L4LzgHzyx1Vj Kgq8ze05vCWnl1N4nJU1 T4WlTSKvpvgpfIBmwHpe TC3uLYOirofdNOKhaX6f EZHbH4m2NwSkZnS0 TXwvD8YywcM7PDHtuARd HPYmeXIMlC3lupsdl4vk rpifUcCjRIZcLJl3AOt2 LWFsaWduOiBsZWZ0 CfA4HRE9eGPloU8kgKkx ilmglK7wMjc+ZBk5s8ar qEIpHU1rkWI0PE83EG14 tRJsq9C4sHX9S3Xg YUJbxxamckcveTW6CTMt RXZjkI30Cf7mzXymZp2t KMFsOKD3PNOrrDNhJ0Ej fV1vWjFgAIIeWHZo I5WolJUrPNrxM433RHdb HyX3ESIkpiUrI3IcAEOb wJkxPsC1s2X9Jb3KDZ00 QO23DK91dDIlz8J1 jSR2O6VcJTZrhhiuogsp yGA8TYPeZEPvfI62Qj7r iSieSi2vJLXsCDP5JKZv rIVoE2ScaR5zJhAa AUCiGPKeS1QdoWSkXWqo Y696LXbdLbX8ELEjcgUm J1AyRDLyzWuzVbY0w6R1 Pa5XQj79DA95QT78 qLAhe3S5jKD3P9ZvHBQe iqwjosjuoBN2SJLfUFJz jN49Bx1qfSpbXj9dKENg QFD0AUIxdFQsA0Ss aT5pUxHtWXPoTBUoD6Jv uICvYSrhA035AYhfIkL8 GBJwmyCxY3BlIGIkzUum XyB4u5L9Wl7NNLwl irm8W2BmXcuceVM+PC90 DDAwQA95rXUysPTzi1uq xGj1FbZiAMOtDEP9uYep PWtql8OlDLHtX76n bGFw (more content not included)... [facility] ABO/Rhon 05-29-2022 ABO/Rh Positive Invalid Interpretation Code [facility] Comment on above: Performed By: #### 1 [id number], [id number], [id number], [id number] ####[facility] [address] [place] [address] ABO/Rh History Checkon 05-29 ABO/Rh History Check Verified Hx Blood Type [facility] Comment on above: Performed By: #### 1 [id number], [id number], [id number], [id number] ####[facility] [address] [place] [address] ABSCon 05-29-2022 ABSC Gel Interp Negative [facility] Comment on above: Performed By: #### 1 [id number], [id number], [id number], [id number] ####[facility] [address] [place] [address] BLOOD BANKOrdered By: Alexandra villaseñor on 05-29-2022 ABO/Rh Interp Positive Invalid Interpretation Code [facility] BB Subsection ABSC Gel Interp Negative (05/29/22 7:39 AM) Normal [facility] BB Subsection Blood Bank ID#on 05-29-2022 BBID# [id number] Invalid Interpretation Code [facility] Comment on above: Performed By: #### 1 [id number], 6607573, [id number], [id number] ####[facility] [address] [place] [address] CBC w/Indiceson 05-29-2022 Erythrocyte distribution width (RBC) [Ratio] 13.1 % Normal 10.9-14.2 [facility] Comment on above: Performed By: #### 2 902002 ####[facility] [address] [place] [address] Hematocrit (Bld) [Volume fraction] 33.1 % Low 34.0-46.0 [facility] Comment on above: Performed By: #### 2 846248 ####[facility] [address] [place] [address] Hemoglobin (Bld) [Mass/Vol] 11.4 g/dL Low 12.0-16.0 [facility] Comment on above: Performed By: #### 2 694097 ####[facility] [address] [place] [address] MCH (RBC) [Entitic mass] 28.5 pg Normal 27.0-34.0 [facility] Comment on above: Performed By: #### 2 720919 ####[address] [address] MCHC (RBC) [Mass/Vol] 34.4 g/dL Normal 31.4-36.0 [facility] Comment on above: Performed By: #### 2 089695 ####[address] [address] MCV (RBC) [Entitic vol] 82.8 fL Normal 80.0-100.0 [facility] Comment on above: Performed By: #### 2 374213 ####[address] [address] Platelet mean volume (Bld) [Entitic vol] 9.7 fL Normal 6.4-10.8 [facility] Comment on above: Performed By: #### 2 658810 ####[address] [address] Platelets (Bld) [#/Vol] 215.0 E9/L Normal 150.0-500.0 [facility] Comment on above: Performed By: #### 2 237000 ####[address] [address] RBC (Bld) [#/Vol] 4.0 E12/L Low 4.3-5.9 [facility] Comment on above: Performed By: #### 2 752906 ####[address] [address] WBC corrected for nucl RBC Auto (Bld) [#/Vol] 7.0 E9/L Normal 4.0-11.0 [facility] Comment on above: Performed By: #### 2 340009 ####[address] [address] Consenton 05-29-2022 Consent [id number]# 1.00CD:127 [facility] Consent for Procedure/Surger yon 05-29-2022 Consent for Procedure/Surgery [id number]#1.00CD:127 [facility] Consent for Treatmenton Consent for Treatment [id number] #1.00CD:127 [facility] Discharge Instructionson Discharge Instructions [id number]# 1.00CD:127 [facility] HEMATOLOGYOrdered By: Alexandra villaseñor on [...] - 11.0 E9/L [facility] HemeAutoSS Recordson Records [id number]# 1.00CD:127 [facility] Progress Note-Physicianon Progress Note-Physician Patient: RAJESH SAEZ Age: 26 years Sex: Female : 1995 Associated Diagnoses: None Author: Jose Miguel Garcia Jr., DO Postoperative Information Post Operative Note: Day 2. Anesthetic utilized: Regional: Epidural. Health Status Allergies: Allergic Reactions (Selected) No Known Allergies Problem list: All Problems / SNOMED CT 594268172 / Confirmed Resolved: Anxiety / SNOMED CT 93250339 Resolved: Depression / SNOMED CT 394274115 Physical Examination General: Alert and oriented, No acute distress. Neurologic: Normal sensory, Normal motor function, No focal deficits. Review / Management Condition: Stable. Assessment Anesthetic outcome No post-epidural complications noted.. Plan Transfer/ Discharge: Condition stable. [facility] Comment on above: Result Comment: Elec tronically Signed By: Jose Miguel Garcia Jr., DO\.br\Date and Time Signed: 05/29/22 17:36 EDT Progress Note-Physician Patient: RAJESH SAEZ Age: 26 years Sex: Female : 1995 Associated Diagnoses: None Author: Jose Miguel Garcia Jr., DO Chief Complaint Intrauterine Health Status Allergies: Allergic Reactions (All) No Known Allergies Current medications.Problem list: All Problems / SNOMED CT 656346413 / Confirmed Resolved: Anxiety / SNOMED CT 70356117 Resolved: Depression / SNOMED CT 493843844 Review of Systems Respiratory: Negative. Cardiovascular: Negative. [...] The PCEA was started at 1728. [facility] Comment on above: Result Comment: Elec tronically Signed By: Jose Miguel Garcia Jr., DO\.suresh\Date and Time Signed: 05/29/22 17:36 EDT UA With Cult Reflexon 2021 Epithelial cells.squamous LM.HPF (Urine sed) [#/Area] 0-2 Normal 0-2 [facility] Comment on above: Order Comment: Urina ry Catheter Insertion triggered Urinalysis With Culture Reflex order by discern. Performed By: #### 1 9979639 ####[facility] [address] [place] [address] [place].plasma/Lithiu m.RBC (Bld) [Mass ratio] 0-3 Normal 0-3 [facility] Comment on above: Order Comment: Urina ry Catheter Insertion triggered Urinalysis With Culture Reflex order by discern. Performed By: #### 1 8402000 ####[facility] [address] [place] [address] WBC LM.HPF (Urine sed) [#/Area] 0-5 Normal 0-5 [facility] Comment on above: Order Comment: Urina ry Catheter Insertion triggered Urinalysis With Culture Reflex order by discern. Performed By: #### 1 4203482 ####[address] [address] Bilirubin Ql (U) Negative Normal Negative [facility] Comment on above: Order Comment: Urina ry Catheter Insertion triggered Urinalysis With Culture Reflex order by discern. Performed By: #### 1 7956304 ####[facility] [address] [place] [address] Clarity (U) CLEAR Normal Clear [facility] Comment on above: Order Comment: Urina ry Catheter Insertion triggered Urinalysis With Culture Reflex order by discern. Performed By: #### 1 4928856 ####[facility] [address] [place] [address] Color (U) YELLOW Normal Yellow [facility] Comment on above: Order Comment: Urina ry Catheter Insertion triggered Urinalysis With Culture Reflex order by discern. Performed By: #### 1 2757744 ####[facility] [address] [place] [address] Glucose Test strip (U) [Mass/Vol] Negative Normal Negative [facility] Comment on above: Order Comment: Urina ry Catheter Insertion triggered Urinalysis With Culture Reflex order by discern. Performed By: #### 1 1728816 ####[facility] [address] [place] [address] Hemoglobin Ql (U) Negative Normal Negative [facility] Comment on above: Order Comment: Urina ry Catheter Insertion triggered Urinalysis With Culture Reflex order by discern. Performed By: #### 1 5110227 ####[address] [address] Ketones (U) [Mass/Vol] TRACE Invalid Interpretation Code Negative [facility] Comment on above: Order Comment: Urina ry Catheter Insertion triggered Urinalysis With Culture Reflex order by discern. Performed By: #### 1 2678666 ####[address] [address] Nitrite Ql (U) Negative Normal Negative [facility] Comment on above: Order Comment: Urina ry Catheter Insertion triggered Urinalysis With Culture Reflex order by discern. Performed By: #### 1 8311939 ####[address] [address] pH (U) 6.5 [pH] Invalid Interpretation Code 5.0-9.0 [facility] Comment on above: Order Comment: Urina ry Catheter Insertion triggered Urinalysis With Culture Reflex order by discern. Performed By: #### 1 8316027 ####[address] [address] Protein (U) [Mass/Vol] Negative Normal Negative [facility] Comment on above: Order Comment: Urina ry Catheter Insertion triggered Urinalysis With Culture Reflex order by discern. Performed By: #### 1 9201467 ####[address] [address] Specific gravity (U) [Rel density] <=1.005 Invalid Interpretation Code 1.005-1.030 [facility] Comment on above: Order Comment: Urina ry Catheter Insertion triggered Urinalysis With Culture Reflex order by discern. Performed By: #### 1 0919845 ####[address] [address] Type of Urine collection method Clean Catch [facility] Comment on above: Order Comment: Urina ry Catheter Insertion triggered Urinalysis With Culture Reflex order by discern. Performed By: #### 1 5412023 ####[address] [address] Urobilinogen Qn (U) 0.2 {[place]'U}/dL Normal 0.0-1.0 [facility] Comment on above: Order Comment: Urina ry Catheter Insertion triggered Urinalysis With Culture Reflex order by discern. Performed By: #### 1 0951596 ####[facility] [address] [place] [address] WBC Auto Ql (U) Negative Normal Negative [facility] Comment on above: Order Comment: Urina ry Catheter Insertion triggered Urinalysis With Culture Reflex order by discern. Performed By: #### 1 8605115 ####[facility] [address] [place] [address] URINALYSISOrdered By: Paulina Dobbins on 05-29-2022 Bilirubin [...] Interpretation Code Negative [facility] UA Auto SS [place].plasma/Lithiu m.RBC (Bld) [Mass ratio] 0-3 /HPF Normal [...] PM) Invalid Interpretation Code 1.005 - 1.030 [facility] UA Auto SS UA Spec Desc Clean Catch (05/29/22 6:35 PM) Normal [facility] UA Auto SS Urobilinogen Qn (U) 0.8891587 {[place]'U}/dL Normal 0.0 - 1.0 EU/dL [facility] UA Auto SS WBC Auto Ql (U) Negative (05/29/22 6:35 PM) Normal Negative [facility] UA Auto SS WBC LM.HPF (Urine sed) [#/Area] 0-5 /HPF Normal 0-5/HPF [facility] UA Auto SS Vaccinationson 05-29-2022 Vaccinations [id number]# 1.00CD:127 [facility] Consent for Treatmenton Consent for Treatment [id number] #1.00CD:127 [facility] Discharge Instructionson Discharge Instructions [id number]#1.00CD:127 [facility] Inpatient Clinical Summaryon 05-28-2022 Inpatient Clinical Summary [place] [id number] Clinical Summary Person Information Name: RAJESH SAEZ Angy/[facility] Age: 26 Years : 1995 Sex: Female PCP: Shanna Daniel DO Marital Status: Single Race: White Ethnicity: Non- or Language: Uruguayan Visit Id: Visit Reason: CYTOTEC Speciality: Acuity: Enc Type: OB Triage Med Service: Obstetrics Arrival: 05/28/2022 08:35:16 Discharge: 05/28/2022 17:00:00 Dispo Type: Home (Routine DC) Address: [address] [place] [id number] Provider Notes: Diagnosis: Problems Active (08/25/2021) Smoking [...] Follow up: With: Address: When: Devin Pereira [address] [place], [place] [id number] [facility] (1) 05/29/2022 5:00 PM Comments: Call for any problems. Return for contractions closer, longer, and harder. Return for decreased movement. Return if ruptured membranes or vaginal bleeding. Patient Education Information: [facility] Inpatient Patient Summaryon 05-28-2022 Inpatient Patient Summary [address] [address] Patient Discharge Instructions PERSON INFORMATION [...] [facility] [address], [place] [address] [facility] (1) 05/29/2022 5:00 PM Comments: Call [...] Leaflets: You may receive a survey from [employer] asking you to rate your care experience. Your feedback is important and will help us understand what we do well and how we can improve the quality of care we provide to you, your loved ones and our community. It?s an honor to serve you. Thank you for choosing [facility] Insurance Correspondence Off 05-28-2022 Insurance Correspondence Office [phone] [phone] 1#[email or web address] [facility] Coding Summary.on 05-22-2022 Coding Summary. CD:[id number] Gh0bWw+PGhlYWQ+PE1FV UExD07lgYAwpC0TK0sVK C0PFPYSHHEZGM7DCI0oq AH7LIwdX1AhwpGk ZbvlaISiQJ07GBv4CVB4 qApxHCwcaP8zmEApJ6g9 VkNsBL64zW03AQthQVXb CnA0OdBeeyjxeJAb G1biVjXkhCHkFch+PHRh YmxlIHdpZHRoPScxMDAl RwIigLpfMM2yGf0hSZMf LWNvbGxhcHNlOiBj r4ogRCPnAOuuHM3soVtr C8TgwIX3MGRba2x6Jx32 dHI+CRLrFTS4qVkoVHod v553UdMml5ltLVX2 lTBiFYwqLRJ1O30qo9K5 ZCRbGMLpGCD5tYS6lR0k nDxtgdukU8VvcCCsXfH0 SMU2qMCmgP3pwVln nlwqrA6pVzk+Y30KPH3M FFTIES5JAuo2E3LrKzgj dHI+TB06RTTpTR32hEBt zVFqq3evsLv5ZbNk FCEuMWE2qUtzUTgny0Uc TYTcS11yzUYji6H5DHAu rRilgQIvVeIwxGJ2aB4k OAfmmisuu9jpqmmi Kjbfl6uqzr00kC15N92s HUccHSHoYUQ1CFSzQBAf cJmlba4kxP0cZq0+IDxj n0qbc9yhyUr0SdWl WTRnyeKxkXpmMVD4v6Bk Yt44R4PkrDcqt5KbSaz9 is42uOHbd9S6dWX7AIfb PEVryB1rMTjkArD5 GHLrQcWmjF51uRZyQHgj Nf5ilKgedAauNY0gEEVc yxdsSXYpnH0nQHHrcISg tHngTZ0xHSHdvbhg a471JtAcVDJ7GDHsfMOs M5CqfN3mIbVxGWGhSZRf E0AzbWXrDKsaO483FTkh WqR2URDudtOoL4Ez NYPsaDshBfQ8l1B4Kq1C a2IkqucvKSM4GKdkYEY9 VaG2MqJvBlW8P4RvXky5 BKGjwCbdCW0tZ0Zm VISawyaugkepaUC2KTCv XEGbsO79qZUxFKdzIm9g g6J6b138NNCgNPKbvT86 Jn2fkEbxVWBogDNM bJ5xvyjjw6sbfuthBaFf BWFdVQm3PRo4UNVrmPfl ZnZzQLW7UkU9STJ9mFYw rQ7hhNrocrezgX5v Oyc+F09pcM5kKJK8SIZ3 avecIOPravRfJK31HT83 O8HkOvbyrDVnkQC+PGRp zcDuzNzgRX1wVsPm t9rnl6ZlLLqaK5YiRWTs QYjyTby5QRPyRTD8mPC9 nP0dFALySLbtu2R6mBA0 Q6EhvlLsnu9ss2tf HJStNWieY86ciMIiy3D7 EEGddBT3WBWisArnHoMw pF26Tkw+VXUeeEozp0Oz Waxnr6zud9qksBr2 IjMwJSIgdmFsaWduPSJ0 b0DyMv31R12aGOcrSCGi WTEyPYGsUVYozQhwka8c sG6fYd1+PGNvbCB3 gRA1aK1tXDEbObC2KIyu Y786JgVbsTUaKpifx7qx r8isgZb2VnDlJPUlrfDw zWbhPDO1o7YrNv06 B14tEGrzSPXmENXpPFXo HNMwmTarfq7nvB2zFy3+ SR9nn4onhk81fE64nMC+ PJVaMTP4oXswTKrn VSNugZ6uNGmcIzM3QUBb ZePqrD59lZIzJGquPg5l pIfzyGgvWJ0iREHqoheq b212IzQtf8trROPo hPRuVGydDHU8U11lm4Z2 JMNvYKRoAPJ6jWT4uC8n bGlnbjogbGVmdDsgdmVy aDznUXbgHTgfG305 IHRvcDsnPlBhdGllbnQg KtOxFVx0I1PnSht0VMFr aVwlQG1yjXCpUVxeKg0t bEpipEhzPZ7uMIEg vrfbr416EgJty7usELDt nUEuIVwqMJA3S63md8M6 WIAaUTNcAZZ8rTF2fY1i bGlnbjogbGVmdDsg mrEilRjrVBzpUHasF048 IHRvcDsnPkJpcnRoIERh kEP7LF02NA49pOKkf1T9 mKP5N8YsVMIgotzt rngtwHM6LRElWBSfpJ84 Pi2mfOsuVo0pSYVbFVZ3 LQUpgGLaU7LylC8mWhGq ZJCzBFZuZ2FkgIEg HCdyO243KBfsOvJ4BRTs ytFrB5MiVSIykTnpEmU9 o2N8Rw1GX5J5FE51FG96 hQEew7C2yJW0T3At GWWdyljzvirtqPE7XYKv NUNzfL17Dt9kwQssJk3b KZHqMXD5GUCizPKmL3Uc uQ2eVbWbXECcSVMg S4CesNEyOBitK906CIcp RhI3CYTemeUfC1BzYVMe hHjrQvT0s9H7Sn1FRZg2 ES63NW65qUPdl8A1 tBB2N6NgFDRutfkiekqg iME3GLTgRKPitM53Sn2y aUmjRz8kSIFlSOS7DZYq pOTmK5OpjR2mZuPy GROcDOYlO6QzjJIuYDnj S016ZWfyRsR2YRQtrrVm I6TwKYWpaDapWkF5x4Z8 Xp1EBLUhPW31VSW0 pPY0TL10NV84A5QnFeww dGFibGU+PHRhYmxlIHdp ZHRoPScxMDAlJyBzdHls XJ0fSg1yNGCpMUAk aKbrqCOcDyYev0pwEJEt JHhdYJ0yjFbdH3OjzYP5 UCDuo1q9Ct43X56kH1Rp dXA+YSTohIR1cFZ5 lQ0dIjMeEdZ9WDzxL517 TpMtdFRpTsysz7ozd2xl fDe1ZsP3CMAzcaNylQgr MZL9b9TfEt14Z27y IHdpZHRoPSIxNSUiIHZh yKxuzw4pwM9mNg2+PGNv mMM3sDU0fS0gPmWjZcG4 RBgyL375RtKbpTQk Rkzyh4yjh2togYe1JoQl CMDjxhZebLbqHMB5r5Hw Xw79V3OiiQsxp9YoRli0 sx18yMWsf2X2qCB8 U6TpCGErtsvkvNPslMkm XU9rIOSjmixcZMOseX5k JVIoJ0m5XzKnOfJ8FJmw X0NlckC8LKFuaIXl HGmwGUX8K46ta0M9OHQg MTGrYFV2cTH6iQ4frIad bjogbGVmdDsgdmVydGlj RWrlKCogJ513MZOg fMceRVDudC1iSKMnfHOw iSamHP4aXYUphrdsAiFN Ag7GVnmcR3TOFVSQBFAn TTwvdGQ+PHRkIHN0 bHkcIGzoERJztD0fMAEb V2d7McDsHxM8KRtgT5Zv BICejleeZh89sY7bLiQf OpL8SKpfX3QfvjU4 NWSwaRImMSkxDQM1I67v p3P0TXJwKVPkJLA9lLZ3 tD0aePwvfiwzuLIdtGgf dmVydGljYWwtYWxp Z948SHEvmJeyAmIlCeM2 ChZ9MGi1R1QwScc5MKIb vPaoYC5qqQHfMPeqYi3j tRickNmwOZ5wDAPt jmajGQGlkO9xKOHpiYZc sVuqEY5rANFkmjxnl418 IcRlAME8EKJhkPFwM9Pb hE3aJnMqXYTcCFVl K0PkjELkYLvzE775KGau BdM1ADHuypOiF1ZqEBGx xPonQlN9d0M7Oy0cKNLH ZWFyczwvdGQ+PHRk TOL6kDmlMIkwKWCcbZ6a VTBjR3i0XuOuXhG3FBgv K1ArGBJqdgukWx97gX5x EdYjFwN6XXjaK3Rt gbV8DAQpwDHjSKirXKU6 C29ux8E4FOIgFFKkEKB7 iLK8hV8fdMdosmqvnLZd dDsgdmVydGljYWwt NLfiB102UNDocEedGyRc bWFsZTwvdGQ+PHRkIHN0 eHcgCLjfICOpqL2zFBYh X6w1BbVhVcE5VHsq F0OsSQIunzhuVq12vI5w EhUrVuP0XZxjI2YdhyD5 OMCgsLLnRDtcUGL3P95w u5Z3KIIqXFZtQFE1 aKE5tU4ooShghuycxGFn dDsgdmVydGljYWwtYWxp C779TBWdmKiqVkaoEzKE mw8dAL2dIqskvXJ+ PO63lr47E9VvHcplLda3 BMGvMBF2aBS4tB0xURCo CRoev2X8sFL0G7NyamAf bw7ox6ntSYMiTXez R83enVIjd4J2PGOfmVY6 FHKctDclZkRdjH89Dtx+ VKLtqPaal7IrPmckg4yd l8srpQe9EaXcXCDz ajJuxQrdTWV3c8NmRd37 U11zFHhrSABcFGKjQXPo HELsdEoxyy2buH7pIz1+ OWMusYM5bRN8hJ5q WdMuYfA8YErqW178DzFx uAKfOtmib4pem7xxlVf8 IjIwJSIgdmFsaWduPSJ0 i2OmTo32M6IfoQth o0WlUrm2rq15vWFmj7O5 zWH1E2UlNOMghqcrgZId yXfiQU3tQGVwshyqOAFv lY9mLTOgH1p4RaZv ZoU9VFnlA0YlruB9JWUw cNVaGNSmkCRDaN8hrgbq q5kaybliUmVcFPLaSIq6 RCd4YPXwrUuoSlYc RNL7OdX4HLF7nFZpsM3m xNurlepeqJ0tHwp+UGh5 c9dopIIpZV7nvPL9LE65 RQ48eWHyt5N2nVU3 L1JsCKEcuwohwtuhdFJ2 KGLdJFOioP72Qr0sfWmo Cq4xWHToVDM1SMUmcSWw B1UwtN6oVcRmHQXq JDXgN8QweXGvUNlsE871 FPnwFrV2DDWbsqSuV2Ma CYEmmOxiPwA0n8O6Ke8C KJ32TC32RH79zTEc a9R4pFE0P7FcYVOtahfb csebzHO5BTUmOLHjiQ74 Iq4ftFtmMs0jBSXgDOS4 OVHovRHlR4JzgT7x SvLlVUTaGDDrY6WamQNa EBmoL827EXrpKlY6TFMk ywHvD8ShKMPkqRrzWlK1 o2T3Vs6ORp81KR30 EC78oFNzz1E0eAD3U1Wm QNQvxfxmrvtodFG8DYDl LEBcrZ54Wp5nqIscBf2x QSMpAFI3PLEejQFu M3LfuJ3cEhLvZSKvPGFd N2BdwNWbWGpbQ384GKbg PgL8OYQufmHbU4IrHHBv vXjnMiL4f5N3Hu0T QIqzwli1M7LbCicxmPD+ PV02LNYsHM26rAWvsNRu v9ofyIo6YeVzZPBtWYD6 qHumMFpri7WzTINl Y29s (more content not included)... [facility] Group B Strep by PCRon 05-08 Group B Strep colonization by PCR Negative Normal Negative [facility] Comment on above: Performed By: #### 4 [id number] ####[facility] [address] [place] [address] Physician Orderon 05-07-2022 Physician Order [id number] 7#1.00CD:127 [facility] Physician Order [id number] 6#1.00CD:127 [facility] Coding Summary.on 03-06-2022 Coding Summary. CD:[id number] Gh0bWw+PGhlYWQ+PE1FV BEuC86ylRJyeT7FA3sBI W6DJCYLXZINAP4IAS0et HG0GFzbU3SkqzHz UpjzgXVdIC36OWl1JVI7 qGswRKskfK6iqJSoT9z4 RyGpSI48vA20YTpjHNKo BdW8KzZhtqhbwTEb F4mrNwVzqFRfGqe+PHRh YmxlIHdpZHRoPScxMDAl LeAksDzfHQ9iIp3jNZPi LWNvbGxhcHNlOiBj b6kfYWRwZAkwMP4pqSpy E5UmgTK7DRJij9j4Ag59 dHI+ELSpMOO3vIgsSLpq d982PcWhv1tgPGJ0 fWVaWPscDCK1G06qw2Q9 HYZdZAMuMLK2rTP9uX7u iTkhdakyM9YamBRaAnB9 AHO5kKFxkP1acYdg mwuwvM6aAmf+R74QCF3I VUCMBV6EIol5G4UvSnin dHI+RW50EAQvUT39uPPh jLHuc8ytvFe7KeCd TNJmZCP4lCbjGRhhn4Dr QZVxV73gpMXqp8O1SDTf lRlkuWKeLfNgkPQ5qI7z ZEaygxaus0lfjafp Jzgiw4dvac48uR66B17f IAtdFWWyXIA1HEKrAOJy uOmdhf9fwH9jFw4+IDxj h8btx9jrnMe3JqQj SDXnqxTwmHzpCZA5u8Xr Fm67K4BnkFbvx1RvGnb3 kd18hLTny5Q7kEN9YOwv FPAdtR1nPXxdBlO2 GLQdSvPohC93oGEnCJqn Ao5esYjeoIimVV5mOZUq hphjRPAmhR0tMVWueDRf jDauAD1eDUTtlotx b820KiJiLNP2SXHfeCYg O8AntC2qCtFbXMWsORDx P2OgeWXeMYbxG915UUpu ErJ9YDNajnBeQ3Qo ARGfuGohSwA1k4X3Po5V j3AgtwvfAHU0BRdvWUA6 HmZrPoBpWoJ6W1BzRvg2 BAWioAxkVU0yQ0Hs ZHMpxtjsxqabrFL3UXFe CHFtnT55eSBeCXeuGt3o a9D6z486EMVuEKYetH01 Sr6lhGeySRCdtXNQ pF4twmyra7oibrnuSoKp DMCpGZl6QEt4AEIvyCvk LtCmBXW4TtG5FDR2kIBc bP8qmVtrewxkdU3w Oyc+F28urX2tQZK8PKI4 bxllAXGmzbHyWK68KW78 Q3DsCshcwQKqfRH+PGRp nsNqiRqeQP6iFdHk y5ywq8OxUGoeU6GhYYYw VVgkVvc3EIKiWRE4qBV9 sY6rBGSlKDfcf2W0hJF0 R1RuwsCfpc3sa8je YTZuDFcoZ09fnTTrm3A6 MXTchET5GOGfwIsjCrBh yM83Hxv+XNZehBozi1Ss Ztcxi8fpg6dxpYo9 IjMwJSIgdmFsaWduPSJ0 o2EaRa63M95tCMkrASNt WHQzSCRbGKQgeYvsuj2n mP1hDm5+PGNvbCB3 tKN1dF4rKVVkKkX6QQcq P314MkCacLZjBqqos8jj x3dpfPu6TpFsPAAkbrIs lKfsBBN9r0AhGf81 R17uDFrvANYtDYNjJQLt DDVquBpbgl0cxJ3aYp2+ MC1xc4akrj38nA44xOP+ DDXdKCK2rVryPTjy SHFmxO2wHEbiUwA9FTBf BnJjpX05dUYyTJymAj5r fXkxkYbbYY0gYPNjzycx r133WjOtk3qhVOAt yVTtVGdlVQI1S03tb9V5 OEEsZNZhCHH6oQM4cW4e bGlnbjogbGVmdDsgdmVy uZdaGUetAAxpV713 IHRvcDsnPlBhdGllbnQg KfWlUEp5S9TeSns4KCBc sOwsNX2qjHNtBFriIt5n pAknnUdvJL1lFHFw snmbd309HoBnr3vcWOKa hOVtQKftFZN0N77re2O9 GGNaQVJxKUQ6hTG5wA2t bGlnbjogbGVmdDsg uqXzlUfpEUjrESizN809 IHRvcDsnPkJpcnRoIERh uEQ4DZ99KC31yDMuw1N1 oHA5L0RmXNOnofys sizmrUE4KJNePQKhkT02 Tv1jeMxoNq8hUTXhOHA5 ZMRwkCJvZ9VxaY5jNxHx DZPrKRQxK9LchEBx QWqpA224UAxmTiL2PRVv caFuK5WjAIKugYupEnG9 r0R5Gq8BN9F7BK41YV24 aUOjw8Z9aKF3B8Wj CMKwfajfbnxkxKC6KUOj VSFqzI70Ev4ppTcdRu2n HGCcNOG2HELkcMYuW3Ho pV8tFwSuSEJnYPAm X9QbzASuKHbmR084XSsk LxT9FLFtmtPrK4KwJAEp zBruTzB2m1R1Vg1BWAq7 CO23XC76nTYcn8Z0 lQV6G8XsDBHsjmlcuufj iTC9BDYcGHAjsL28Xk9z kUmrZb7nWRUkEHT1PLPb iYBoP0OzaZ5jBiLj YQLoLWUjX1LbuQDoSAit Y422FQerMeG1JGRbstVc D7PgHHEaxZliIhX8f4O0 Kf1XRUSqFU40HLV5 tHT3HZ67ZT53G1VxQcsq dGFibGU+PHRhYmxlIHdp ZHRoPScxMDAlJyBzdHls EI7qUp5kXFKlXSYu kKuizBAgFfBog5wsNZVm AZolVQ8dhEppM4AkoMT1 VXTan7w1Bd90J49bR8Bv dXA+ASBggSE9hLE5 eI5iMiVcLoA9BQfoI869 LxEgmEWeYorai9dkr6tx iYl0PdT5BRLouxAevLjo IOY6b7KoDd40G45r IHdpZHRoPSIxNSUiIHZh cRckpu8qcO0hGv9+PGNv rIS6jUS5kH8uBxXxYiI8 OEggA972MlWmuOGd Vqhte3dqu7inzUt2ZfKz PHMnpwXudIyjZAT6b5Pd Ch67S4YfpXfcx8GtKzv1 rz56rXXab9E8mHJ8 Q4ZaASWoteikiVTbmPzd UE3vBATktxjqMHEzlA3g TFFbJ4d5YkPuGsZ9EKds O4XavmW9GLXokUHo CKyuCJI2G33cp0P5NQSs FVVpKJS2lRM4kL1ysBqp bjogbGVmdDsgdmVydGlj NXdxNVywT814RHRz xNorKQIsiI8sCAJehVXl vGilNP7lEUXfonzwBvVN Iz8IIvefP4ZIVHELUIOb TTwvdGQ+PHRkIHN0 fYlaXVenHZDswW5cSOIp A4s1HeCsGxS6AKarN9Cb LVKfovgmLo35cL2cVmSj WiD4LJklI5YbqhY9 DUAoeAXdRLggYWK6A33s k4P4NTGwDHVgHSE2wDU3 yP3fyZecicxzoLXolNqe dmVydGljYWwtYWxp U734QSYgzSrlJeZzTnF2 AxR3EOf0V2MwMwy9QBJu zIgdUH7wzYRyGVpfJx2l kIfayBmfGZ5tWDAd ulvrWHGpgC8gHMLgoOEi mIrpRE3tMLMkamztx131 ZcAwIBQ0PJPuzSNhN0Ib uP6jWvBnCQOcJUWv V9BwiZFmJChjI337SPtb GiH1CFYwwbFeL9NkYNWh bNqiBaQ4s4Q5Ie7nFMZJ ZWFyczwvdGQ+PHRk ZXI8tHtiXHlkUBRpmD2c YULyC3q2GcZzMzN4GKaa Z1HdPSPjrncqYt08xS4k UeXmOpA4PFuwL0Ho zrQ3OCKyeKOhLEhqJJV5 F08yj8P0EKEfZOKiGSE0 nZY5tV4zxXmpaqxlwDVt dDsgdmVydGljYWwt HFdiH593LPGmzVduGtZj bWFsZTwvdGQ+PHRkIHN0 hCsoQUhdIXRwpB4rQYHe N3k2ZbEvOoW4RFof E1TeCLCzdnzeKs60xW1v LhOcPqZ3ABurK6LxfaC2 CGQefZUyLBusWXX6O92f b7U4LZLtVVByKCU3 fOW4wZ5ffIdrifmorXLm dDsgdmVydGljYWwtYWxp P837LOXjxIqrLh49hKYu oXkrluQ8H8XrSqmg dHI+FZ44HDPnIC70vYGc uVAxd0yxmGv4SiVdBEZf FOT4qWfsZXddl7LdSMSs U55ncKVvi3Q0BZOx qDrkpVCuIdIfjLI8fG2u PWqsiywbk2dwjsrsDgwn t1eajf57bK35V75ySVsd ZHRoPSIzMCUiIHZh bGaham8wlC0dQq9+PGNv qSX9pCO1bE2jCxItBmH2 QIrzD613CdKbvLNzSdii z2zbq4gujRk7YuOd HJRjzbXfwOleFPF8r7Yv Pj56B24uVZizXNGkTDAp FSBfSWScgFaozf1jaJ9b Ii8+IQ1tu4rirw62 wQ80vHN+BGAuNNS9zVai MJqxTDLuzU9cUTleAxJ2 VNBmUpMslN42xLBhHZmd Cx1auYfhuWcfCN1w JXAcqdkjv078YvHzo6is YXWloFVfGRvbGZN4O30k c0G6GJNxMEByERP9rRH1 oF3clPkouuoprDMl dDsgdmVydGljYWwtYWxp K935NQHqnOfrJyLjvWBf D4jqyiRNEN2jVhacxIT+ WJUcABR3iRncZDhr VBBqgS4tXWMrU6o1KnRh SsA7DEufW5XpfjU2VHZk uNIqRTCcrPOGoV2giyvn l6qkwqqhMyBjXDPi CYm3FYc1YHXzbTlsCeSv VIO7CnJ1VKN1cFGtqS2s uJoryrbksS0dPhn+RklO OjwvdGQ+PHRkIHN0 dPwfIVbpTLDgfS0vFNWe A4i9GpIcJxW6BVomA0Jh ncQ0QIGkwEFbAITnzDPK zI0eshthk5esdqrq WiBfVESzKCr4XXe8HRUe uDmgSoLfLUS0ZgG4ETR5 qRStjV8dnSwjqbkugP7r Oyc+TVJOOjwvdGQ+ OWLaIXI3uAnqHAtqRJIt iM9wFWBiJ5o0FwYaOvK6 RJmcY7CbbrQ3YEDepLDa IXIyyKLNhR4bfuxj a9fmsmgsSuFkNQKyMCo7 MVi2XBFxoLarLnObGVM2 AxC6KCV2rGSbgW7cvWbp tdjaxO6jUzb+UGF5 VUS2PV47DR17L3NcSvie dGFibGU+PHRhYmxlIHdp ZHRoPScxMDAlJyBzdHls FI7oQs1vQDCrSDBa bGxh (more content not included)... [facility] RPR with Conf Rfxon 02-25-20 22 Reagin Ab RPR Ql (S) Non-Reactive Invalid Interpretation Code Non Reactive [facility] Comment on above: Result Comment: Perf ormed at: [facility] [address] [id number] PhD Ed Yeboah Performed By: #### 1 [id number] ####[facility] [address] [place] [address] Consent for Treatmenton Consent for Treatment [id number] 20 [id number] #1.00CD:127 [facility] Gest Scr Glu 1 Hron 02-23-20 22 Glucose [Mass/Vol] 121 mg/dL Normal 55-140 [facility] Comment on above: Result Comment: Posi tive Screen =1 HR > 140mg/dL Performed By: #### 1 [id number] ####[facility] [address] [place] [address] Hct & Hgbon 02-22-2022 Hematocrit (Bld) [Volume fraction] 33.3 % Low 34.0-46.0 [facility] Comment on above: Performed By: #### 1 [id number] ####[facility] [address] [place] [address] Hemoglobin (Bld) [Mass/Vol] 11.6 g/dL Low 12.0-16.0 [facility] Comment on above: Performed By: #### 1 [id number] ####[facility] [address] [place] [address] Physician Orderon 02-22-2022 Physician Order [id number] #1.00CD:127 [facility] Vital Signs Date Time Vital Sign Value Performing Clinician Facility 12-31-2023 10:56-0500 Body mass index (BMI) [Ratio] 34.51 kg/m2 Maame BARR Work Phone: [facility] 12-31-2023 10:56-0500 Body weight 88.36 kg Maame ABRR Work Phone: [facility] 12-31-2023 10:56-0500 Diastolic blood pressure 56 mm[Hg] Maame BARR Work Phone: [facility] 12-31-2023 10:56-0500 Systolic blood pressure 108 mm[Hg] Maame BARR Work Phone: [facility] 05-31-2022 15:01-0400 Hourly Rounding Devin Pereira [facility] Comment on above: Result Comment: discharge instructions g iven 05-31-2022 14:36-0400 Hourly Rounding Devin Pereira [facility] Comment on above: 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 05-31-2022 13:00-0400 Hourly Rounding Devin Pereira [facility] 05-31-2022 09:24-0400 Body temperature 98.06 [degF] Devin Pereira [facility] 05-31-2022 09:24-0400 Diastolic blood pressure 73 mm[Hg] Devin Pereira [facility] 05-31-2022 09:24-0400 Heart rate 49 /min Devin Pereira [facility] 05-31-2022 09:24-0400 Mean blood pressure 90 mm[Hg] Devin Pereira [facility] 05-31-2022 09:24-0400 Systolic blood pressure 125 mm[Hg] Devin Pereira [facility] 05-31-2022 09:24-0400 Blood Pressure Location Devin Pereira [facility] 05-31-2022 09:24-0400 Mean blood pressure 90 mm[Hg] Devin Pereira [facility] 05-31-2022 09:24-0400 Respiratory rate 15 /min Devin Pereira [facility] 05-30-2022 20:40-0400 Body temperature 98.24 [degF] Devin Pereira [facility] 05-30-2022 20:40-0400 Diastolic blood pressure 72 mm[Hg] Devin Pereira [facility] 05-30-2022 20:40-0400 Heart rate 61 /min Devin Pereira [facility] 05-30-2022 20:40-0400 Mean blood pressure 86 mm[Hg] Devin Pereira [facility] 05-30-2022 20:40-0400 SaO2% (BldA) [Mass fraction] 97 % Devin Pereira [facility] 05-30-2022 20:40-0400 Systolic blood pressure 113 mm[Hg] Devin Pereira [facility] 05-30-2022 20:40-0400 Mean blood pressure 86 mm[Hg] Devin Pereira [facility] 05-30-2022 14:51-0400 Body temperature 98.24 [degF] Devin Pereira [facility] 05-30-2022 14:51-0400 Diastolic blood pressure 70 mm[Hg] Devin Pereira [facility] 05-30-2022 14:51-0400 Heart rate 52 /min Devin Pereira [facility] 05-30-2022 14:51-0400 Mean blood pressure 84 mm[Hg] Devin Pereira [facility] 05-30-2022 14:51-0400 Systolic blood pressure 114 mm[Hg] Devin Pereira [facility] 05-30-2022 14:51-0400 Blood Pressure Location Devin Pereira [facility] 05-30-2022 14:51-0400 Respiratory rate 16 /min Devin Pereira [facility] 05-30-2022 14:45-0400 Blood Pressure Location Devin Pereira [facility] 05-30-2022 14:45-0400 Respiratory rate 16 /min Devin Pereira [facility] 05-30-2022 08:00-0400 SaO2% (BldA) [Mass fraction] 98 % Devin Pereira [facility] 05-30-2022 08:00-0400 Mean blood pressure 111 mm[Hg] Devin Pereira [facility] 05-28-2022 16:40-0400 Hourly Rounding Devin Pereira [facility] Comment on above: Result Comment: Patient declines vaginal exam due to expressing not having any pain or noticable contractions. RN notes decline. 05-28-2022 16:00-0400 Hourly Rounding Devin Pereira [facility] Comment on above: Result Comment: Discharge instructions g iven and educated to come to hospital tomorrow at 1700 for induction. Educated on induction process and what inductions intail. RN answers questions from patient. Patient voices no concerns and agrees. 05-28-2022 15:00-0400 Hourly Rounding Devin Pereira [facility] Comment on above: Result Comment: patient resting watching tv with fiance in room. 05-28-2022 15:00-0400 Promise to Return Devin Pereira [facility] 05-28-2022 14:45-0400 Blood Pressure Location Devin Pereira [facility] 05-28-2022 14:45-0400 Body temperature 98.06 [degF] Devin Pereira [facility] 05-28-2022 14:45-0400 Diastolic blood pressure 54 mm[Hg] Devin Pereira [facility] 05-28-2022 14:45-0400 Heart rate 64 /min Devin Pereira [facility] 05-28-2022 14:45-0400 Mean blood pressure 68 mm[Hg] Devin Pereira [facility] 05-28-2022 14:45-0400 Respiratory rate 16 /min Devin Pereira [facility] 05-28-2022 14:45-0400 Systolic blood pressure 97 mm[Hg] Devin Pereira [facility] 05-28-2022 14:00-0400 Promise to Return Devin Lorenzoten [facility] 05-28-2022 13:00-0400 Promise to Return Devin Pereira [facility] 05-28-2022 12:00-0400 Diastolic blood pressure 53 mm[Hg] Devin Kelli [facility] 05-28-2022 12:00-0400 Heart rate 50 /min Devin Lorenzoten [facility] 05-28-2022 12:00-0400 Mean blood pressure 66 mm[Hg] Devin Kelli [facility] 05-28-2022 12:00-0400 Systolic blood pressure 91 mm[Hg] Devin Kelli [facility] 05-28-2022 08:47-0400 Body temperature 97.7 [degF] Devin Lorenzoten [facility] 05-28-2022 08:47-0400 Diastolic blood pressure 59 mm[Hg] Devin Lorenzoten [facility] 05-28-2022 08:47-0400 Heart rate 64 /min Devin Lorenzoten [facility] 05-28-2022 08:47-0400 Mean blood pressure 74 mm[Hg] Devin Lorenzoten [facility] 05-28-2022 08:47-0400 Respiratory rate 18 /min Devin Lorenzoten [facility] 05-28-2022 08:47-0400 Systolic blood pressure 103 mm[Hg] Devin Lorenzoten [facility] 05-28-2022 08:45-0400 Blood Pressure Location Devin Lorenzoten [facility] Encounters Encounter Date Encounter Type Care [...] 12-18-2022 End: 12-19-2022 ambulatory Ka[place] X [place] [place]: 12-18-2022 End: 12-18-2022 Patient encounter procedure Kaelyn X Orzech [facility] Start: 12-04-2022 End: 12-05-2022 ambulatory Kaelyn X Orzech [place] [place]: 12-04-2022 End: 12-04-2022 Patient encounter procedure Kaelyn X Orzech [facility] Start: 11-28-2022 End: 11-29-2022 ambulatory Kaelyn Rodriguez Facility: [place] Start: 07-11-2022 End: 07-12-2022 ambulatory Devin Pereira [place] [place]: 07-11-2022 End: 07-11-2022 Lab Drop off Devin Pereira [facility] Start: 05-29-2022 End: 05-31-2022 Evaluation and management of inpatient Devin Pereira [place]: 05-29-2022 End: 05-31-2022 Evaluation and management of inpatient Devin Pereira [facility] Start: 05-28-2022 End: 05-28-2022 ambulatory Devin Pereira [place]: 05-28-2022 End: 05-28-2022 OB Triage Devin Pereira [facility] Start: 05-21-2022 End: 06-24-2022 Pre-admission assessment Devin Pereira [facility] Start: 05-07-2022 End: 05-08-2022 ambulatory Devin Pereira [place] [place]: 05-07-2022 End: 05-08-2022 ambulatory Devin Pereira [place]: 05-07-2022 End: 05-07-2022 Lab Drop off Devin Pereira [facility] Start: 02-22-2022 End: 02-23-2022 ambulatory Devin Pereira [place] [place] Date Procedure Procedure Detail Performing Clinician Start: 12-31-2023 URETHRITIS/DISCHARGE PLUS VAGINITIS (HTRX) Maame BARR Work Phone: Start: 12-31-2023 Urnls dip stick/tabl et rgnt non-auto w/o micrscp Maame BARR Work Phone: Start: 12-31-2023 IGP,APTIMA HPV,AGE GDLN Maame BARR Work Phone: Plan of Treatment Date Care Activity Detail Author Start: 01-27-2024 End: 01-27-2024 Patient encounter procedure 01/27/2024 9:50 AM EST Routine [facility] [address] [place] [address] Earl Mendoza, DO [address] [place] [address] [facility] Start: 01-27-2024 End: 01-27-2024 Professional / ancillary services management 01/27/2024 9:00 AM EST Ancillary Procedure [facility] [address] [place] [address] [facility] Start: 12-31-2023 End: 12-31-2024 Alpha fetoprotein, maternal Alpha fetoprotein, maternal Lab Routine Second trimester Expected: 12/31/2023 (Approximate), Expires: 12/31/2024 [facility] Comment on above: Expected: 12/31/2023 (Approximate), Expires: 12/31/2024 Start: 12-31-2023 End: 12-31-2024 US for US OB ANATOMY SINGLE W US OB CERVICAL LENGTH Imaging Routine Screening, , for anatomic survey Expected: 12/31/2023 (Approximate), Expires: 12/31/2024 [facility] Comment on above: Expected: 12/31/2023 (Approximate), Expires: 12/31/2024 CHLAMYDIA TRACHOMATI S (GENITO/STI) CHLAMYDIA TRACHOMATIS (GENITO/STI) Lab Routine Exposure to STD Ordered: 12/31/2023 [facility] Comment on above: Ordered: 12/31/2023 Cytology Cervical or vaginal smear or scraping study Pap Smear Pathology and Cytology Routine Well woman exam with routine gynecological exam Ordered: 12/31/2023 [facility] Comment on above: Ordered: 12/31/2023 Neisseria gonorrhoea e DNA [Presence] in Unspecified specimen by JAYDON with probe detection Neisseria gonorrhea DNA probe, direct Lab Routine Exposure to STD Ordered: [facility]2023 [facility] Comment on above: Ordered: 12/31/2023 SURESWAB(R) ADVANCED VAGINITIS PLUS, TMA SURESWAB(R) ADVANCED VAGINITIS PLUS, TMA Pathology and Cytology Routine Vaginal discharge Ordered: 12/31/2023 [facility] Work Phone: Comment on above: Ordered: 12/31/2023 Immunizations Immunization Date Immunization Notes Care Provider Shaun mckeon 01-18-2013 hepatitis A vaccine, unspecified formulation [employer] [facility] 09-12-2010 meningococcal ACWY vaccine, unspecified formulation [employer] [facility] 09-12-2010 tetanus toxoid, reduced diphtheria toxoid, and acellular pertussis vaccine, adsorbed [employer] [facility] 02-23-2003 DTaP, unspecified formulation [employer] [facility] 02-23-2003 measles, mumps and rubella virus vaccine [employer] [facility] 02-23-2003 poliovirus vaccine, unspecified formulation [employer] [facility] 06-27-1999 hepatitis B vaccine, pediatric or pediatric/adolescent dosage [employer] [facility] NEGATED: Highlighted row has not occurred!11-28-2022 influenza virus vaccine, unspecified formulation [employer] [facility] NEGATED: Highlighted row has not occurred!11-28-2022 SARS-CoV-2 mRNA (tozinameran 5y-11y) vaccine [employer] [facility] Payers Date Payer Category Payer Private Health Insurance [facility] [id number] 2022-Present [address] [address] [place] [address] [id number] 2022 Private Health Insurance [id number] 2020 Private Health Insurance [id number] 1997 Unknown [id number] [id number]. 2.727 1997 Unknown [id number] 2.16.840.1.695308.3.579. 2.727 1997 Unknown [id number] 2.16.840.1.381939.3.579. 2.727 1997 Unknown [id number] 2.16.840.1.557816.3.579. 2.727 1997 Unknown [id number] 2.16.840.1.164585.3.579. 2.727 1997 Unknown [id number] 2.16.840.1.830456.3.579. 2.727 1997 Unknown [id number] 2.16.840.1.907903.3.579. 2.727 1997 Unknown [id number] 2.16.840.1.471955.3.579. 2.727 1997 Unknown [id number] 2.16.840.1.818551.3.579. 2.727 1997 Unknown [id number] 2.16.840.1.201956.3.579. 2.1259 1997 Unknown [id number] 2.16.840.1.978190.3.579. 2.9 1997 Unknown [id number] 2.16.840.1.979206.3.579. 2.1259 1997 Unknown [id number] 2.16.840.1.501449.3.579. 2.1259 1997 Unknown [id number] 2.16.840.1.215552.3.579. 2.1259 Social History Date Type Detail Facility Tobacco smoking status No Smoking Status Entered [facility] Start: 12-02-2023 Sex Assigned At Female F [facility] Start: 11-28-2022 End: 12-02-2023 Tobacco smoking status Never smoked tobacco (finding) [facility] Tobacco smoking status Never [facility] Start: 12-31-2023 Alcohol intake Current drinke r of alcohol (finding) [facility] Start: 12-02-2023 History of Social function [facility] Start: 12-02-2023 Alcohol Comment caffeine: coff ee in the am [facility] Start: 09-17-2023 [facility] Start: 1997 [facility] Assigned At Female [facility] Start: 10-02-2023 Gender identity Identifies as female gender (finding) [facility] Functional Status Date Assessment Result Facility 05-29-2022 Functional Status No [facility] 05-28-2022 Functional Status N/A [facility] Clinical Notes 05-07-2022 to 12-31-2023 CORTNEY Ospina [...] which includes the following prescription(s): cholecalciferol and [id number]. Medical History: Active Ambulatory Problems Diagnosis Date [...] nursing note reviewed. Exam conducted with a foreign clerk present. Vitals: Estimated body mass index is [...] obtained without difficulty and patient was given [facility] order to have obtained. Follow Up: Patient is to return to our office in 4 weeks for routine OB appointment Documented by Ada Hollis LPN on behalf of: CORTNEY Ospina documented in this encounter [facility] 06-04-2022 Note DATE OF [...] complication. Devin Pereira M.D. lr Dictated: 06/03/2022 [id number] Transcribed: 06/03/2022 [facility] Comment on above: Result Comment: Elec tronically Signed By: Devin Pereira MD\.br\Date and Time Signed: 06/04/22 08:08 EDT 05-31-2022 Note The following Patien t Education Materials have been given to the patient: [facility] 05-31-2022 Note HOSPITAL REGULATIONS : [...] details. Devin Pereira M.D. ls Dictated: 05/31/2022 [id number] Transcribed: 05/31/2022 [facility] Comment on above: Result Comment: Elec tronically Signed By: Kelli DEMPSEY, Devin Collier\.br\Date and Time Signed: 05/31/22 09:16 EDT 05-30-2022 Evaluation + Plan note Extrac noy from: Title:Post-LDE Author:Jose Miguel Garcia Jr., DO ate:05/30/22 Plan Transfer/ Discharge: Condition stable. Extracted from: Title:L&D Epidural note Author:Omaira Garcia Jr., DO Date:05/29/22 Impression and Plan Plan Labor epidural at request of patient.. [facility]07-06-2022 Hospital Discharge instructions Follow Up Care 05/29/2022 07:05:03 With:Dr. Pereira [phone] Address:Unknown When:6 weeks Comments:Call for any problems. Support Group first Friday of the month at [address] [place] [address] if fever>100.5 F, heavy bleeding With: Services [phone] Address:Unknown When:06/03/2022 14:00:00 [facility]07-05-2022 NoteThe following Patient Education Materials have been given to the patient: [facility] Dis[facility] Follow Up Care 05/28/2022 08:38:04 With:Dvein Pereira Address: [address] [place] [address] [place] [id number] Business (1) When:05/29/2022 17:00:00 Comments:Call for any problems.Return for contractions closer, longer, and harder.Return for decreased fetalmovement.Return if ruptured membranes or vaginal bleeding. [facility]06-14-2022 Evaluation + Plan note Diagnostic Tests Pending * Group B Streptococcus colonization by PCR [facility]07[facility] Future Scheduled Tests Radiology* US Abdomen, Limited 12/18/22 [facility] Diagnosis Second trimester state, incidental Screening, , for anatomic survey Encounter for anatomic survey Well woman exam with routine gynecological exam Routine gynecological examination Exposure to STD Vaginal discharge Leukorrhea, not specified as infective documented in this encounter [facility] HealthcareHospital course Narrative No data available for this section [facility] No data available for this section [facility] No data available for this section [facility] Summary Purpose Family History No Family History Records FoundNo Family History Records Found Advance Directives No Advanced Directives Records FoundNo Advanced Directives Records Found Additional Source Comments Care Team (unrecognized sect ion and content) Rn Field Relationship Specialty Start Date End Date LinkCorbin MD [address] [place] [phone] PCP - General 10/30/23 Rn Field Relationship Specialty Start Date End Date LinkCorbin MD [address] [place] [phone] PCP - General 10/30/23 INFORMATION SOURCE (unrecogn ized section and content) DATE CREATED AUTHOR 12/27/2022 [facility] DATE CREATED AUTHOR AUTHOR'S ORGANIZ ATION 03/03/2024 [facility] EPIC Reason for Visit [...] BE BASED ON THE PRIMARY CLINICAL RECORDS. [facility] [employer] [facility]. provides no warranty or guarantee of the accuracy or completeness of information in this document.
[2024-03-21 21:18] VITALS: TEMP 36.2
[2024-03-21 21:19] VITALS: BP 105/56; PULSE 84
--- NOTE | 2024-03-21 21:42 | US_ITS ---
[address] [address] Patient Name: ADONAY GENAO MRN: [id number] date: 1995 Sex: F Assigned Patient Location: [facility] Current Patient Location: [facility] Accession/Order Number: [id number] Exam Date: 03/21/2024 22:30 Report Date: 03/22/2024 00:03 At the request of: EMERSON LEHMAN Procedure: US OB placenta Examination:US OB BPP w non-stress, US OB placenta INDICATION: status COMPARISON:03/02/2024 ultrasound TECHNIQUE:Real-time sonography of the fetus was performed. Biophysical profile was also obtained. FINDINGS: Limited sonography was performed. There is a single live intrauterine gestation with a heartbeat of 138 bpm. presentation is breech. Amniotic fluid volume is 18.0 cm. The largest pocket of fluid measures 5.0 cm. The placenta is posterior in location and is unremarkable based on this ultrasound. Biophysical profile: breathing movements: 2 / 2 Gross body movements: 2 / 2 tone: 2 / 2 Qualitative amniotic fluid volume: 2 / 2 Total biophysical profile score: 8 / 8 US/US OB placenta IMPRESSION: Single live intrauterine gestation with heartbeat. The placenta is unremarkable based on this examination. Biophysical profile score is 8/8. Electronically authenticated by: NICOLA DAMICO Date: 03/22/2024 00:03
--- NOTE | 2024-03-21 21:42 | US_ITS ---
[address] [address] Patient Name: ADONAY GENAO MRN: [id number] date: 1995 Sex: F Assigned Patient Location: [facility] Current Patient Location: [facility] Accession/Order Number: [id number] Exam Date: 03/21/2024 22:30 Report Date: 03/22/2024 00:03 At the request of: EMERSON LEHMAN Procedure: US OB BPP w non-stress Examination:US OB BPP w non-stress, US OB placenta INDICATION: status COMPARISON:03/02/2024 ultrasound TECHNIQUE:Real-time sonography of the fetus was performed. Biophysical profile was also obtained. FINDINGS: Limited sonography was performed. There is a single live intrauterine gestation with a heartbeat of 138 bpm. presentation is breech. Amniotic fluid volume is 18.0 cm. The largest pocket of fluid measures 5.0 cm. The placenta is posterior in location and is unremarkable based on this ultrasound. Biophysical profile: breathing movements: 2 / 2 Gross body movements: 2 / 2 tone: 2 / 2 Qualitative amniotic fluid volume: 2 / 2 Total biophysical profile score: 8 / 8 US/US OB BPP w non-stress IMPRESSION: Single live intrauterine gestation with heartbeat. The placenta is unremarkable based on this examination. Biophysical profile score is 8/8. Electronically authenticated by: NICOLA DAMICO Date: 03/22/2024 00:03
[2024-03-21 22:55] LABS: Bilirubin Urine NEGATIVE (NEGATIVE); Blood Urine SMALL (NEGATIVE); Clarity Urine CLEAR (CLEAR); Color Urine LT. YELLOW (YELLOW); Glucose Urine UA NEGATIVE (NEGATIVE); Ketones Urine NEGATIVE (NEGATIVE); Leukocyte Esterase Urine NEGATIVE (NEGATIVE); Nitrite Urine NEGATIVE (NEGATIVE); Protein Urine NEGATIVE (NEG/TRACE); Urobilinogen Urine 0.2 EU/dL (0.2-1.0); pH Urine 6.5 (5.0-9.0)
[2024-03-21 22:58] LABS: Urine Microscopic Indicated YES
[2024-03-21 23:01] LABS: Bacteria Urine NONE SEEN #/HPF (NONE SEEN); Cast Seen? NONE SEEN #/LPF (NONE SEEN); Crystals Seen? None Seen #/HPF (None Seen); Mucus Urine NONE SEEN (NONE SEEN); Squamous Epithelial Cell Urine FEW #/LPF (NONE/RARE); Urine Culture Indicated NO
== END 2024-03-21 23:21 | disposition home or self-care (01) ==
LOC: ER 20:40 → FBC 21:05
PROVIDERS: Admitting Provider Obstetrics & Gynecology; Emergency Provider Emergency Medicine; PCP Family Medicine; Visit Provider Obstetrics & Gynecology
DX: O26.893 Other specified pregnancy related conditions, third trimester (principal); Z91.81 History of falling; Z3A.28 28 weeks gestation of pregnancy
CPT/HCPCS: 59025; 76815; 76818; 81001; 99285; G0378

== ENCOUNTER 2024-05-12 19:46 | Outpatient (REF) | payer OTHER, SELFPAY ==
--- OUTSIDE RECORDS SUMMARY | 2024-05-12 19:55 | XMS_ITS | CCD ---
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 Name Role Phone Shanna Daniel Primary Care [...] Attending Unavailable Orzech, Kaelyn Brooks Attending Unavailable Link Corbin DEMPSEY Primary Care Provider [phone] EARL MENDOZA Attending Unavailable BITA, MAAME Attending Unavailable ZELDA, EARL Attending Unavailable BITA, MAAME Attending Unavailable ZELDA, EARL Attending Unavailable BITA, MAAME Attending Unavailable BITA, MAAME Attending Unavailable Medications Current Medications Medication Drug [...] # 15 tab(s), Refills(s) 0, Pharmacy: [facility], 154.9, cm, 05/29/22 7:54:00 EDT, Height/Length Dosing, 84.5, kg, 05/29/22 7:54:00 EDT, Weight Dosing Start Date: 05/31/22 Status: Ordered Hgiqmvjf-Frj-Ju-FA ( 1 + IRON PO) (3 sources) Ritznjwp-Xdo-Qu-FA ( 1 + IRON PO) Take by [...] # 14 tab(s), Refills(s) 0, Pharmacy: [facility], 155, cm, 04/25/20 17:23:00 EDT, Height/Length [...] containers..01 ThinPrep Vial Age Algo ACOG Hodan... 21-22 12 FLAG LEGEND: L-Low Normal,H-High Normal,LL-Alert Low,HH-Alert High <-Panic Low,>-Panic High,A-Abnormal,AA-Critical Abnormal Performed at: 01 =G [address] [place] [address] Terri Cantu MD, IGP, RFX APTIMA HPV ASCU Note . [facility] Comment on above: TESTS RESULT FLAG UN ITS REF RANGE LAB DIAGNOSIS: 02 NEGATIVE FOR INTRAEPITHELIAL LESION OR MALIGNANCY. Specimen adequacy: 02 Satisfactory for evaluation. No endocervical component is identified. An endocervical component is not commonly seen in the patient. Performed by: Марина Stacy, Envelope Sealing Machine Operator ([facility]) . 02 Note: Note 02 [...] <-Panic Low,>-Panic High,A-Abnormal,AA-Critical Abnormal Performed at: [address] [address] Terri Cantu MD, Performed at: =[facility] [address] [id number] Data Integrity Specialist: Terri Cantu MD, Phone: [phone] Performed at: [facility] [address] [id number] Data Integrity Specialist: Terri Cantu MD, Phone: [phone] SPATULA-ALONE ENDOCERVIX [facility] URETHRITIS/DISCHARGE PLUS VA GINITIS (HTRX)on 01-02-2024 ATOPOBIUM VAGINAE 0 [facility] ATOPOBIUM VAGINAE Not detected [facility] BVAB 2,3 (BACTERIAL VAGINOSIS ASSOCIATED BACTERIA 2, 3); MOBILUNCUS SPP 0 [facility] BVAB 2,3 (BACTERIAL VAGINOSIS ASSOCIATED BACTERIA 2, 3); MOBILUNCUS SPP Not detected [facility] BASSEM ALBICANS, PARAPSILOSIS, TROPICALIS 0 [facility] BASSEM ALBICANS, PARAPSILOSIS, TROPICALIS Not detected [facility] GLABRATA 0 [facility] BASSEM GLABRATA Not detected [facility] BASSEM KRUSEI 0 [facility] BASSEM KRUSEI Not detected [facility] CHLAMYDIA TRACHOMATIS 0 [facility] S [facility] CHLAMYDIA TRACHOMATIS Not detected [facility] GARDNERELLA VAGINALIS 0 [facility] S [facility] GARDNERELLA VAGINALIS Not detected N O[facility] MEGASPHAERA (TYPES 1, 2) 0 [facility] MEGASPHAERA (TYPES 1, 2) Not detected [facility] MYCOPLASMA GENITALIUM 0 [facility] MYCOPLASMA GENITALIUM Not detected N O[facility] NEISSERIA GONORRHOEAE 0 NOM S [facility] NEISSERIA GONORRHOEAE Not detected N OMS [facility] TRICHOMONAS VAGINALIS 0 [facility] S [facility] TRICHOMONAS VAGINALIS Not detected N [facility] Urinalysis macro (dipstick) panel (U)on 12-31-2023 Bilirubin, UA Positive Negative - 4(70) +++ mg/dL [facility] Comment on above: small Blood, UA Positive Negative - 50 Luis/mcL [facility] Comment on above: trace-intact Clarity, UA Clear [facility] Color, UA Yellow [facility] Glucose, UA Negative Negative - 2000(110) ++++ mg/dL [facility] Interpretation and review of laboratory results Abnormal [facility] Ketones, UA Positive Negative - 160(16) ++++ mg/dL [facility] Comment on above: trace Leukocytes, UA Negative Negative - 500+++ Kahlil/mcL [facility] Nitrite, UA Negative Negative - Positive [facility] pH, UA 6.0 5 - 9 [facility] Protein, UA Positive Negative - 2000(20) ++++ mg/dL [facility] Comment on above: 100 Spec Grav, UA 1.030 1 - 1.03 [facility] Urobilinogen, UA 1.0 0.2 - 12 mg/dL [facility] Coding Summary.on 12-24-2022 Coding Summary. CD:[id number] Gh0bWw+PGhlYWQ+PE1FV UUbA55bvLCwkS7IQ3tKR G3GOFDBOAUEDR0JWC7sx CN9RQfqE3TunpPf SwbghGAtLY18QGd4GRV4 eDriRZaahD9fpBLkD8c9 PqNeIM78vQ45ZLhtOCIl VuU4NiNcweuimBXy O8jlGoVnuJBfWgu+PHRh YmxlIHdpZHRoPScxMDAl MoHfmXrsTW8vFw0dYREr LWNvbGxhcHNlOiBj s8hxQBRjGAxfLZ4igYuh W7WcnUH8OWAss9o6Wx61 dHI+MBJzOYK6lZcrGJay j560XkJhc2ylOIR3 yJGaERimPKL8J85pb6O8 ETJyQKDpEKW7mWN9pF9d aVakecurP8LonCEuPiS9 KKA9oSFceE1usCom lawqrU5lDna+J41ZOZ4R XHGTIX4RNbe7L3NjKgst dHI+JL12LIGwZO00oNIj hFDqm2fvtHa0KfSo SLWjQHZ5yNlkJTosq7St OTBaL95pdWGqi5F5EVKs hFhjvQDwEoKpbDO8eG2l DXnsjuosg5rkrkpz Foisz9kuzx59qZ66S94s HHjlTVYtTAB0CNYuTYYg fZmbpt4ixG2bQz6+IDxj v4mci1vcyQt8LeQo DWPurkIrzOfsEYX5j0Vp Iu35V9KkvEgnw7XkQzh0 tm84eBNqm7E3dVP8PDuy QSPxjS3wGNniPzC1 XKXjDwSkkU02qABkGOrz Ec2gwSkgbIciAD4bLTGb oreoROGhpW1hCTNnyONx hDfxBF1qGNPxyfqo e010GiWrUXV9YUEbyBQg N3JlbZ4jCbNaZRKtIRTd W8TqkKVwJFhyA503BEyn UlZ6IFDugtRyD7Vz JVFepWymSdT0k1I5Gs8J d6GozkjsVAT5TAqtQENw XlTuYdArQxO3M0AkDng4 WEJoxShxLO8jF3Sn SEYolpgfopgytSU7PPTc MVKzjU77zLWxFTvuXz3h x0D5l260FIBvTNVkyG63 Ka0jkGehDDAsmSAN oX1hetfmv5wjrxctJdSh AJHmGOc9MNo6BHZqfUoz CwVlLYE3MmB8QJI9dIKs dR9fgNgzhcsgkT0l Oyc+J69hyP6cMYO8PSL1 drlqIVYhegEbLG45RX97 N2XjOdhtnINmwNH+PGRp vcAbnLweBH1bIfOy l0ayc2GaVWnlQ0ZoHGGr RQvgZpj3IDZlVYG9sGX0 jX2jDGOyIHlni2C8oUO0 O1GzesFacp8bq4qq GTDmIGfkO37eeSSxc5J0 HPVuhTU7TDMgnMwwDcAr zA28Ygs+MVJcyFpkr3Rl Vocde3iug9iuiTx7 IjMwJSIgdmFsaWduPSJ0 j6AyNi90O41aBPymPAPo FWMuXHRoRWZomBkenh4b fI9eVt6+PGNvbCB3 xTP9qO5gEHKzDvP4GNai Z197QoEajYAaScmrv8nk n9btaVr7WyAvTKVojzBw oSinVEC3u9IbFa25 P05hVXrlRGFjVAFkWIWl RHSyhGggry5yzW0lLn1+ AJ0cq7cqit89oR82nUP+ AEZvVEY0sRwwONqk ZKNbzH2hSOxdAoS7SSZk EuCamS05dNTbSMucDb4q hOjccPwxMY5jYYBxqslj b406CqZzr6daXPQn uICnTUexIGS5H98zh6G4 VHOxVOChQHX2pCN7vV1s bGlnbjogbGVmdDsgdmVy lMsqNFtyUMbuL663 IHRvcDsnPlBhdGllbnQg VjCsTEk2P6GkAul6RKSd hAhiML3euRHdBFyhVs2o sDomgXxyLV5nHNHh tugvs402NyGgb1ymQPOl gGBgYLwfWCW4N88sp2J5 CXDbNQKwGVI4bYL5aF7q bGlnbjogbGVmdDsg olIfrDrxXEatUCfqF884 IHRvcDsnPkJpcnRoIERh qER2DC27OA40mMGor5E1 dXC1L5ScHIOrpuno twikkFL2ZFEyKOArbF87 Xt0voOpsGh8wXAHkMYC5 HKQlsZIpI8CbkF5pJyFn OMTpIQQlG7PntXBk HHrkK199SBwqUyO7YJMq oeTwL9DpNVMcaAeeOfC5 i9U2Ov7DE5O2AS60FC54 dCMjh6C6sNL9H7Ks NMRzuxjpapcznYG7AEAt PNQqaM86Vx0siQbgOc0g PCFtHHB5EOWrqRLmS4Vy qL1vUaXhTTSbIHQz T0BuzEVpJHmkA070CFbk EpQ7PEEsmrUiH3HoHNYl aGdxOwG1r7L5Oi8KWYp0 JZ58YX97hDVyw8O5 sNB1T8DmAGYimduyqxyx qIV3GSRpTMGjrS71Qy4g zKkbKu6qRLMcBLJ4IJQo hSDbF1WnkM0nMkUe VUFnNERxR8PxdORsHFrf O514NLhwEzI9VBFwkdUm X0LhELZrpYafEiI4n9P3 Wf6CHSJwVC96MPF8 xKY7ZB08UT17X3JfOfaj dGFibGU+PHRhYmxlIHdp ZHRoPScxMDAlJyBzdHls OV8fVg2oSVMlBRNu cRrhkXMoXlZpb8weOZIw GLpdYM1isZquC7AigQY8 ZQByx7k0Cx97S99dH7Bz dXA+CZTulXG2cUQ9 pG7wNbHjYmL9JOngH630 SpDfgZKyEdvox1qzf8xz wLz6TuE7NQBjouRjtAlx FWR4o6KvEi73H14e IHdpZHRoPSIxNSUiIHZh hTojxe6mqS8tSk4+PGNv nWV4qJJ9rJ7sTkAeCoB2 OCguM873QhGzhHOm Ytvgn4jym0xuyRu2CmKg VKHazpVqjEsuEUI3z6Vt Ph83F6LfaIlxu3CxIcm1 vq93fAVwx5W0kNN6 S8ZuFSUmssnubDGaoOdq DE1qSPOhyqcyPIGhrB7b DFUmY3c0FsLoUwB2BRbi L1OnugZ8KXHrnAPz MRbwDWS6S06gm6P1KKDs RREdLMR8sLJ9fA9ewOkf bjogbGVmdDsgdmVydGlj VKlxICxaN175OYZh uOfrUWTkwS6jYQHlaPCj tUwxIV8eYKKudlacLoVD Op2JFqqsF2UGOIJRHYJb TTwvdGQ+PHRkIHN0 cJtpYCdyPMQcnN9dENKc P6a2GeJyBbT6WTtgN8Ab ETJqbwvqEa42vW5vIvHr IvD2ZEnxJ2RqilL9 IOMbqDKhDKvqVLA7N72l c2G1SWZwJMImFKG0oSH7 kF8jvJihcqtqvXTrdZnx dmVydGljYWwtYWxp S512ADGhnDmrTaKmZvK3 DfO5HIa8S8VkQjy7PXBo xEanUT9erBSwCAevZh0r cPplaEzzNI8pNZAc zeneMPRieF5pYDMndNGe aOryUM5ySKWiuhlku095 KzSvMIS2VWVrdSCjZ0Ij wB7eVcObIQKfARLv N4QxkLZhGGgaY150SGhr BnJ7EOOffdYnV2YjLMNa aRcdEaE0m9X5Ok0nUTIO ZWFyczwvdGQ+PHRk ILY9nUmtBYmtJTDkaI5z MHNaW7p9CsUiUrF5DGos B4LsHOMpftpcGy28oK8o XeMrPtI0JPfhN1Vu ntV3WPCpjMOcIUdyVXN7 N72kn7G1YHXwGLVhLFP4 jTN8gB6tiZihnftpgBCp dDsgdmVydGljYWwt DBdeI377FNQxaQqqWpWt bWFsZTwvdGQ+PHRkIHN0 aEtlNLdqKFDkbQ1uSCKz N5m8YrCtQcK9SWgx K3NbXAJjfyipQg76wC4n NhSuSyQ0VMdcJ5KbylU8 UVTsaSUvRNmeNXL5P35c f0U6RLJdRZMxZBQ7 gDK5wA0tcJicpjbpiMSr dDsgdmVydGljYWwtYWxp K028QCBloXhfYl75gRXh jTpurtB3J3TqFxod dHI+WP56UNJzBX73cOLt aUFei2nrxLe7LlTnAGLn LCZ9vSezNRosi3WkMHFd M11vkBEol8Q6HSRq wXqroDAjHcFtrKI4kS7n OKjvbcukz4mthjkgCvxh c5pnok49qE42W74mDSob ZHRoPSIzMCUiIHZh dYlzdc9fkQ0qRb5+PGNv dCJ9uHV7jK5qObStTwG0 CWumO007UdAtbIYtQhek k3bhw1bsmCk3UfYx DIJeusHdpBsnWWS1f2Xl Gf53H15rNDddNNIqJXHk ZWCiOJCmoAhrzi5grI9k Ii8+YE2us9ehkk61 pY55sIQ+HGSiTCU3dEhd NCjzRXOjwD1bXChbKzJ3 YQAoDnNbyX57qLXbSPcn Mt2ueEzxbMozQS1g PJLseezrd238LuKgq6hg ASUuwLImZAcoWOP2F86b j8Z2CFYtZYDpCTN4nRS6 qA1ejLibjwrtyLIp dDsgdmVydGljYWwtYWxp F397HCCjyFdhLrDhaFKc Z2jcwjFTGC4mWvyuwRK+ ULLwRGU5vXksFLeq FREpzO5eHABzF5q6VoMc WjW1LFpfM8KpmxM5BHEt jQCoGTCaiLIRnZ7oakuj t3jinhcuFkKrQTJu WFi0CBj8PJQcfTnhJqEv IEO2PdG6BEI1sNJvjW1b gBpedezssE6xYfg+RklO OjwvdGQ+PHRkIHN0 zHbyKTodRWXcmU7rZTPv U2q4LmDmMhS9KElxH5Zr ibQ2IZYnfIHoSVIdpGNP nP3cwlfrm0jfrdcy DaHtTTVxSDc2QIa4LRPy uOoeXwZuFFZ2PwN4VIW7 eGEnoP4nwFbirtzhdG9t Oyc+TVJOOjwvdGQ+ JBDnHOO6fDnsDNynCCYe wT7tGLWhU3z6YnZcUhT2 CSznO6JbgpB4PLNqnWZz GCCvxZPUyS6onxzg o4lieqjdRlAvMIWmDQu3 MOt6PIFqxJyjXhRkZNL7 VoU7BZJ7jWMxpA8zfJpw txxbhW5lZxo+UGF5 QMP8ZV88KV64X5JjJyny dGFibGU+PHRhYmxlIHdp ZHRoPScxMDAlJyBzdHls DA0gKp3vHIRfGXOn bGxh (more content not included)... Normal [facility] Consent for Treatmenton 11-25 Consent for Treatment [id number] 30 [id number] #[id number]:[id number] Normal [facility] US Abdomen, Limitedon 2022 US [...] Meier MD Transcribed by: STEPHANIE Technologist: BETH Murray [facility] Consent for Treatmenton 11-24 Consent for Treatment [id number] 30 [id number] #1.00CD:127 Normal [facility] Family Medicine Office/Clini c Noteon [...] With When Contact Information Shanna Daniel DO, [facility] [address] [place] [address]- Additional Instructions: Patient Education Cholecystitis BMI for [...] Alcohol Use, 04/25/2020 Employment/School Employed, Work/School description: [employer]. Highest education level: University degree(s)., 05/29/2022 Home/Environment [...] tronically Signed By: TAISHA Rodriguez APRN, Kaelyn Brooks\.br\Date and Time Signed: 11/29/22 14:43 EST Patient [...] care after the procedure. Medicines ? Take vouu-jmf-nokzkew and prescription medicines only as told by [...] 11/10/2006 Document Revised: 03/19/2019 Document Reviewed: 03/19/2019 [employer] Patient Education ? 2019 [employer]. Nutrition BMI for Adults Body mass index (BMI) is a number that is calculated from a person's weight and height. BMI may help to estimate how (more content not included)... Normal [facility] Coding Summary.on 07-17-2022 Coding Summary. CD:[id number] Gh0bWw+PGhlYWQ+PE1FV TRsE62mfKSyvT7RO3eOS N4LOVDAXSVJNO7BZR9is DZ3ZMcpH2AjpdJq CdiypARhQO84DZg4LEU0 sEseAEbgxG3ksOBcM3e0 TdZsGB85pB67AXlvJLLg JhM4ZuDoxhaskDBv Y6ecQcHlwBCyEjw+PHRh YmxlIHdpZHRoPScxMDAl UbTalItrDN3pOy4xHXIc LWNvbGxhcHNlOiBj r2zoZRTiZJobHM3exBww F0HdsBI0QOWgv9v8Ny75 dHI+ZDLpZYV3aWyrWOfl a229GmTli8knSCO2 xTZqHEasBPW0J99cl3K4 LKLtDYCyOSD9fVP0oH8a vLvnbsjsP3TepAFtHtK0 OAU8mEOqoF1geHad vtdfjP3jOsk+Z15UFT9R KCHYBW3YIim3K4DlSxek dHI+ZD65YBBaPV43rXPg yMOql8xycDe1TmJj ZQMzCZL7zNibGOcrw1Kj AANlQ37qlHNrd7Y7VDXy uInmmPOtNdWqlPZ2xW8b NZtuhgjmk5ouzues Hgbdk1kprs18jE15U43i LAlxRASeAES5QBKrHFUr dTkwkv5bgD7iZz2+IDxj a8byx1ltcXt0AfIs EJZgizDamSkoRKA3z4Re Uj94W8LxdCdvv3RuGtw2 sn39cNUhk4A4aAT6MSyt ZBCfzU5uRSmbLbS1 POKjVfWzlT06dADyARtx Ae6gdZhksIaqTN6iOCAr cdfkPWOyqL1cPRKgmAXx fQzfWG7sLVFicarz l010CqAoANL7IPHicNQe Q5JlhB9pEfGpKCNfVWBn M4XcvABtXUmtU380TZzb WoG8XHAhkeOuY4It LJCukBrsQyL7m5X9Wr5A d9PpazxbFVX5HJpzKXI2 QlQ2JdJfVrS2H2LsHmv6 UCNleDztYT6uQ9Hf JHOvohmwolpoiBI4LFOu SUNwoJ35pPVlLXlqQr7n a5M1r375YPZnNDOjdW15 Ma1faFxkZRCwrOPB nO7floidb8nbdmwtViOh RVBrMAo7DJf0ZTQvqFxy EmYfDNI8NcX4PGN2vAJq qE9wwHyzwsdlpM6o Oyc+V79nmW0sNUX9HEX2 infeYQEhhiEzRS34RT91 C6RtIpuoqNIxcTS+PGRp jgJtbMfnXJ0ySyBg o8twe7XaQDehI7NfAYRh TEpjJuh1UYLvMIL2qOG0 oL5oSWHyOHyqe4A6qRN3 U6HyxaCxwz8mf2gt VBCnIYgfE18eiRAvf1J0 NEWnrRK8EPSnrVekAlNo vO25Guw+LEEsfDnvy5Sj Gwaiv7ypf5impJk6 IjMwJSIgdmFsaWduPSJ0 u1WgNk41F35zDOyjNKJf MYXyHJAyQODezQylod6n dU3dAp4+PGNvbCB3 lHH0jH1pINMwRbT9OCgu D539OgIhySYvMxdqt4ee x6yllPb5SeDbPDYxmeXa qSevHNR4g0GhXu19 M61uZNmmASNqIPPwUCDs DSJfcYzzzg5emK5cId1+ XD7by0vmyu27iU60kZY+ FIOwYHB3lWcbZAsl XPQwbM3tHYcbJzP0CLXb KmZmaH61aXLeURupQt1a aSuzjSjuAW8vEWJmxyhq l138SxGzd2cnSNWr sOTiVJukTWZ3F38ys3A5 DDLeUTEkFBR4bKC9wA1p bGlnbjogbGVmdDsgdmVy gFmaFAeaKCwbU325 IHRvcDsnPlBhdGllbnQg AtRqKBt1D4CyMir7YBJr sPgpTO0czDGfMFgoDf2f vZtbhOgvQO9qUBCm evzxm894SaVjy7kwLJSr wCUuPNpbALS9J99ay8V7 LBMaYUWjOOG3iZF4zR7m bGlnbjogbGVmdDsg pyQvjDiaTFceHNrwA540 IHRvcDsnPkJpcnRoIERh ySG8RN97NB08yICdb7D1 eHA1S0OyBQPgxkdi pcyjpMG3VTDiYDVesX15 Qi7qeHsbKx3bGDFmJHK1 QLNbmQEyH3MobR2dWfJz HQWgSGThS5BnhGOo KHpvE087NWvnYnJ0DKVm mqRtH3GfWUFanWqpUeU6 q7P1Xn2MP8K8JE36CI16 wLQcd6S1zKO9U5Vi VROjazigviyqaVO0DKEx CGKajM50Ia1pfLmwMf9d XKLhPJN2VACvqMKuX3Hh vF9wIzTgQUYuXOUq N5XoaIYyBZkxT693SSet NyX1IEZtukIlI7QlTIOu hDcrOfQ6f3D8Yb9PXIi3 ZB07KM34yZFsu1Z3 zMY8Q1IaSAOsvtrfysfs zHL8QNUhRAIsmK26Di5g bStuUq3fZXSjCQV2LZUg aMXtW9OdqU1wSpTo FZKdLUDsG5WcpWUsXTem G285SJytXnM1JCXcuzSn Y3EqZXSwsEkcLbB7d7P8 Ee0YRGJaRN79GMC6 fBP2JG96JZ22A3FhSxwb dGFibGU+PHRhYmxlIHdp ZHRoPScxMDAlJyBzdHls RY4oWd7jAPNtAWQm oWzpnSPaJkLla1pdSFEt BUuvXQ6baJbsK0BzlJM5 NWExg7m9Ac10U99nT3Sq dXA+UBQjtGC6nZW5 iP1cCzXzMaO4QTgaD807 SyJtmKBpQjykm9sbq4nc mQa3XhB7PTWjhcJzpOcs KUF7y6VeUp36I86p IHdpZHRoPSIxNSUiIHZh iOwppq4ohU6yCa9+PGNv gXB6kIO3fO4aBsShEaG5 PTjyN535TdCjsULf Pfnkk8all7ldlYu4QhQr XISzcxZmqFkpWXB5t5Rj En98C4HbtGfkm3VdAbm4 zv69eILhw6B7tZU9 K6QaHCAouuxgnXAyjMgd ZY1rFKYcbxzySEFmxU9l NOBlV2m3MuZdNdW0ZKzs S1UayfS8MOLhtMQq PGlgYWG2V96qv2Q9GYGl FCFrDPY7rKY5tV6ehDzf bjogbGVmdDsgdmVydGlj FEzjEWtfA921ZLLe nXzwFMTskB4vRPMtjQIp mVjsHU7zTUQaovbfYiDI La2MDeojA4TWTKDEDHCq TTwvdGQ+PHRkIHN0 mRqoTXmdHSMjqK3gDFQx H8y3IqZqYvI2YXqtY5Rd NAFgltasXg82zV8zZwFb WeQ6ZJegE0CcqfN0 IEXaoNBjKDzsEZS8Z64i j7Z9UZNzWTGwSIA8jTQ2 bX4olOafpnuyhSYyrVae dmVydGljYWwtYWxp B911BAVvtTdjIxLmZrP3 KkJ1VGv8K5VrZne9KYQi vSrsKE6wwXBgWEpbOo9o dSujfFnvWJ7sGNVu vxyaFXAmsR4bEPHnoKGw vIzbMZ4qGCGqlgexo907 CsJiFVK8MJTxoEBjA2Hl uK8yAcKxFCYjXCYa V8PozFPvNXtxS327IIvt PtD8JALcsrLmF0QeNGWj iJgtQkF1l0K3Jr6rQNHQ ZWFyczwvdGQ+PHRk CFC3vIyrYJiuKNRwyC4d UGQcM2b8ZbCgNkC5BSmd W1IcFJKpuxznUu32sD0d OqQyMyF3UXmwU4Ti epO1RATqdADgWDoaMVM5 Z57ui0T2WVMeFZPzJOA4 pFO9sV6rmEcwgcddqGFf dDsgdmVydGljYWwt OLmjP356WFUrzTkzDwQb bWFsZTwvdGQ+PHRkIHN0 eFjkUIalJSJnpB0eZFZt V5h4UmJwCfM9UYat Y5XlPPPungxiHj76kH1v KuUaUhV9ANmvL8YtjtT7 MXObyBNkSYzqMFQ6Q55k l3Z8DMJtKAEeWAH9 dBC9lK8rnEkixnmqyGSr dDsgdmVydGljYWwtYWxp C785TXVaoBcvKylvDfPL el4vHE3jXifyrYR+ AJ72xs86D6StWjitSxg7 JWFpVXX2xYM1eZ6bXHPc ZWdyx8Z4xNJ5V9MzekOu sh1gv5xvCNKeCZwh T14hzBDhb9O3ZEUxbLA4 NAPvxIkjVmXfpB51Ver+ THHuqFlls1KhShvqz6jz d1qvlJh4XaCmDNBv dwNzyIlxUYF9p2RaCp00 B36sKOqaYXZxDYRmXEMm BMVipMkxfr5lwN6kBs7+ LAGooDC5lVR0nJ9v JjBkYrA4LUbiC384DjOs vTPoAlyih5dby4mviTv1 IjIwJSIgdmFsaWduPSJ0 w2HuBd37Q1WtvUbw m0NeLxz9vi93jFMiy1Q7 wDJ2U5KeEXKjdjkadFPd rQicJM8eTIBnwclzXLZo tY2iLESuC6g8DeSo KvN3CPyyY8QefwB6WAQj iUZfATXcrXOMqR8kkxgv u5zvkhijYrPlMOArACs5 UTg9QCTtwPknRcSs KOQ9MvK8SMP9zCQzgL6b dVysvxcknL7nWak+UGh5 v8mzpCOgWU3uhRD6KY56 ZF32lPUwo3T5zQW0 T3KxMBLgoshedfaxjMZ3 UNDbNPSkqJ02Pw9dbNqd Ei3mKFJqXFQ3YNSwiGJz U5OshK6pEbDoMQKf MNMlQ3LaxRVaRQawX327 HQlmTwI6YLIyghDzF8Dt UITguXyaSoH3z4H1Pr7H IK88VX96YC67jGMa n5N8pSJ2Z5MlBSLbhkvf qvtovWM3RWXrRMEjlY60 Jl2cwYdxDf2zEPSwJUX2 PJGpePTfT4IrwS3u AbUuDOYfACPeZ5IwrYHs NUzuF251KZzbWvH1UJSn xzYmI8WwVEPexEycOsA8 i4Y1Pi7BRy65VB47 TS79wSGdz7F5fHA0P6Ki VJXvafdfcibxsDT3ZOTf OPIlmI26Ef9qlKvjWt9f HCGzGJQ0IZOiaEYw D6LpqI5zXuKoOLCgDZZv D2GugSMbKTcrQ139EYkq JyX5EDJonaUfI0RoKDFa xTwxSrM5s9G8Hp7W KGwemlk3H4TtDqtjxRR+ YV03SVWaRO17tDNadIDc u9groVq9HtDoTYRoHBD0 qJlcAMrvm7QzALBd Y29s (more content not included)... Normal [facility] Lab Miscellaneous-LCon 07-17 Lab Miscellaneous COMMENT Invalid Interpretation Code [facility] Comment on above: Result Comment: Test Ordered: [id number] IGP,rfxAptima HPV all,16/18,45 IGP,rfxAptima HPV all,16/18,45 Note WB TESTS RESULT FLAG UNITS REF RANGE LAB Clinician Provided Cytology Information No. of containers..01 ThinPrep Vial DIAGNOSIS: 01 NEGATIVE FOR INTRAEPITHELIAL LESION OR MALIGNANCY. Specimen adequacy: 01 Satisfactory for evaluation. Endocervical and/or squamous metaplastic cells (endocervical component) are present. Performed by: 01 Maru Dong Envelope Sealing Machine Operator ([facility]) . 01 Note: Note 01 [...] High,A-Abnormal,AA-Critical Abnormal Performed at: 01 WB [facility] [address] [place] [address] Terri Cantu MD, Performed at: [facility] [place] [address] [place], [place] [id number] MD Pepe Murray Performed By: #### 1 [id number] ####Elio [facility] [id number] [place] [address] Lab Miscellaneous-LCon 07-12 Test Code 005867 Invalid Interpretation Code [facility] Comment on above: Result Comment: Test code corrected. 07/12/2022 06:39:13 EDT Performed By: #### 1 [id number] ####[facility] [address] [place] [address] Test Name IG PAP APTIMA H Invalid Interpretation Code [facility] Comment on above: Result Comment: Test code corrected. 07/12/2022 06:39:13 EDT Performed By: #### 1 [id number] ####[facility] [address] [place] [address] Physician Orderon 07-11-2022 Physician Order [id number] 26#1.00CD:127 Normal [facility] Reference Laboratory Testing Ordered By: Klever Peralta on 07-11-2022 Test Code 864938 Invalid Interpretation Code [facility] Test Name IG PAP APTIMA H Invalid Interpretation Code [facility] Nursing Assessmenton 022 Nursing Assessment [id number] 5#1.00CD:127 Normal [facility] Coding Summary.on 06-03-2022 Coding Summary. CD:[id number]:[id number] Gh0bWw+PGhlYWQ+PE1FV NLpU09vlKCgjD4AB8lXE Q8DQPLINGIERJ0BOB6gn YE4RXlwH5HugmPl OviveDVgSY67KWg3TQW0 kVevCOzjrL2lvSIdP5s1 CwDzAR36qV01BVabUQWw FbG9PlVlxmyppVXg O8twLfTkaKRiDno+PHRh YmxlIHdpZHRoPScxMDAl FkGiyRuaZG0zPu9lYLWy LWNvbGxhcHNlOiBj h1knBDKuADwyMJ6aiDdy Y3SweNK3HAThp1k3Wi07 dHI+KBLsFYH1kDlfCPug k734WuGlx1khMJM6 wAPtWJerAIK4O80ph4L8 QFPmCSIuEHF7bDZ8pF7y pPsnxwwuT7FrcTZcUzS8 PLT2mYHykK0shTww zuujzY3uHdz+Z91WAL6E RFTTKV1OAhx3T7HuQuyn dHI+WI67KQFoJN90iMCg gHCcx9ffnVt4QfZq URSsPPN5xTfmDVord0Nt YAVpD74pbZSwk0D3XPWp dVbgnBBgWwQauNZ0tL8j KNbyfuoqf3paxuzs Kjjlp2dgif18cV18E66f KOfeSSQkSEF7QSMpTKGk hKplzb1xgY6bRd6+IDxj e0ebp5uggMc1HtFn BOWvmaWufSgmKCG6r2Pb Le63F2FmtAsgu1VoCxp6 fx66uBDxo5Q5jXX6EVjt ZOBkiI7fRHfbAbG5 VXJiVqFelA79aXCbCVcv Nd9vzCrovMezFB6rVLUj yutpJMAguO9uSEWsoIAh wJbaAW3oIQBpxqlb u358HlFyMWO1NQRnkCDu J9VoeK1bCxGaXZZzIKUx U6EknEDsKNjdT516FIqx YiE8HOTubiWaS0Oe ALXrpJssRiJ4h1O0Xa5P e7WspvopGYM9KWgwQIF4 BiHlPzHmSkR3B5FdYuc3 COQhbAkmAY7yD0Bh XCGoljnmrwdebZL7WTSl WOGvzK55iPXxHHlnMw7w d7S3m214XVCrJXIyrE14 Je4grZplXAZwzNXT pZ5mxfvyn0mtnsclXhHz BSXjBAk4DWt6OVAueQsp ApPjKJL6FaX9QYT4hSZt xE6dxJgqvylejJ2c Oyc+D61hsV2xSKC9VJL2 awwmDGWqoiMjYF21LH19 Z6HaQldeiOTdgSX+PGRp ceKljXicNA9hZwRd w0gum6DqGHimL8FtTUBv ZEbdYra0BGMvTXT7nZC6 vN7bLRGeCAvnk9B4dUM6 H0JpohNcno3qj3up TIJaAAzpX63xyLOms6R9 KZIbjWP7OTAneOmbSwDd iU83Ovv+ZRWkmDwzs3Ab Ogpeq0mas1rquAz7 IjMwJSIgdmFsaWduPSJ0 g8JjPb19U18mKKkjGIYi QZTqYCSpCJAwcQezic0j rE2mSy0+PGNvbCB3 wRC8nW2gDDXaSpZ3GRmy R658KnSvyMFnWqjdx6ng x2msgLw9DrFoQVMldmMw rBvpSTB9m3EuYf82 P87aTAndQHGuAZCfKNZi JGRjlZwqqr2hqH4oNn7+ VH6uf0xfcp75lL10vWU+ HFXeIYJ0zAxiFNom CWXcpB0jJWrrRzB8KMYd WuRyvV39oDWuRNovRc2u tMjxtFitEV8gDXCehhpp f278LmPhy3tgSZIx xVMaNNjtUKZ1J89wc8Y5 EUQyNDStEEU1kVT4yG8s bGlnbjogbGVmdDsgdmVy wHthJQacNGjqQ267 IHRvcDsnPlBhdGllbnQg OkYaDBy8D5KxOwh0VQAn xWoiKT2qpBUoQLxpMk9e lIdcrWknDO6eDKRv ykdye762EkSjl5ilDENe vYQkLVidRJF0B58jl0O3 UGMcJOHxVUQ6kTG1vG8w bGlnbjogbGVmdDsg apCjkBskRWqjEDcvW645 IHRvcDsnPkJpcnRoIERh nHW6IA31GS65yMJdu2U3 vXM9K8ZgAAAvaxin asfziRV9PGAzZXJktW32 Vx8zrTquYz9dLTVgFGU3 PDSefNGfC4HqlP2oLhAe ZOOaUHOqL9TbnWNn KPgyX917EHfjTfC6XJGh zqTbN6DlQZSleFkoTaX3 q1U6Qu4BS9Y2LY19JQ96 oEUhz7F1gQO4A9Oj HUBbxvocuzomeNA1PASs DGJvgR25Dk2smDvhAu2k ZLZkNSG8YKNyyVStS7Wc rO4eItNqRFPeAPFh F5OfdWHsSVioD809PLph PtD0QLYctqKkU1TrVMBh yHeuZhT3o2F0Jc4SGLf1 FK65KG36vPTkb7T5 tZR2O8DoBOGfemvnurtm cFI2ZYCsRCNiiE41Eg4k vXnaSr0uWAYdIHN3ICUj lPNyZ2JchQ3iMdYd TBBxOREkB9OroGIvPSyk N426DIvfJsL5ZFLtnkQh W6WoQWPxsDxxQcY5z5W0 Lq0QBFMdME93NDL4 qJP5AW99VQ65I0OeXxsz dGFibGU+PHRhYmxlIHdp ZHRoPScxMDAlJyBzdHls YZ0qGv9hQVOzTGJz iZcyoPMiMrTdh7drIOKy COjsQV8qoKkhN8EtaZD6 GOYxr5a9Wl20Z56mG2Jt dXA+TQUzvJW3zGN5 nY7tAsEcIwQ8IBjdP056 HcNrzICjGkzbb4sce4ht rLx0KaB0NJVshrEmsNrl JNA3c0MeBy54K27c IHdpZHRoPSIxNSUiIHZh cCehak3unP1oKx1+PGNv jOD5tAC1rW6kKzNaZyY2 GCxwQ901GtFmoENr Pogdd2frt2zcwCd9SbMi YZXfywMyhFbkLFJ9o9Cy Hn55U7EczPhvh3JkUgk1 tq25oPLqw6L1uDB1 X9WyIDYyaqkqmPOwqLgn WH5cUQGbecwrWXNgmV7m YBVgC6j5FgBoBaT1KFmh C7CglvZ0CUKauUKp TIuxMSY1K55ko5R0QZQu AONuGFR7dZA0mH4ksEgb bjogbGVmdDsgdmVydGlj NIpiORmqE481OLFv wPxlEJAjxA3qVKPobDKt nUvqSL9zBAKsdcinEaVB Zf5PGgwaX6MAKTFZJRWd TTwvdGQ+PHRkIHN0 bWxlFSerLEKpvD9dIKYi M6s4NiTpNfZ1CFsjW2Xq VUXzcwinMv70nV5tOpQn WmC9OJvfM0VeykN0 NQEvnIMvXYqsTNK9R08c r5C1EGGtGKFiXEW7bGW2 pY3moPtwvjbopRMbzHlk dmVydGljYWwtYWxp U940GIBasPlsIqVhEdA2 IrY5LUl7H6SySyg8GQPx bDbnTK2myOEcHKvjFp8v mKhatBcbVD5eHJPx vcsoXNIzcN8cKQTzpRRh zXwdYV7iYLAhnezlm666 WiMzUUS1PQNwqHZwS8Ox nZ1zBvZtBTAwTQQq L4WbsYNgRWryY310TVfe IuV0DJEwolKxD1FqUQAz oPtmSdL2g6N1Py3iSMMH ZWFyczwvdGQ+PHRk UQT8nMcnRQqhXQGaaQ4h ZBHpJ8b8CtVnTyN7TFex D1LjYNEhbaexSr70mW8w GnXvVaN3QDeoV1Pl vgL5APLurAVzFHeqJMN9 X70xk6B0RQNmEAAaXSU7 vCL4fW6abMaduakbzYPu dDsgdmVydGljYWwt NXfsE531WXKivMblSvRy bWFsZTwvdGQ+PHRkIHN0 cLlrOBktWGCnlM4wIAVk T4g2NlUiYcW4XDwh U1XgUETprqmeLt11wX2z NeNxSrA7CVpyB6PydxV3 RKZnmEOuZNwoJWI0U06y a4J8ZVLnJPYwRSN5 dIE0fT2vwYszfycdrYMm dDsgdmVydGljYWwtYWxp I024CIQehJcqQtfagJR0 aWVudDwvdGQ+PC90 xx43S3HeIbddQpq1YRVi HME9hSU5lY0aIBRjKPlb i4H9gXG8L4MwttUrcu9b b2zdHSKlUDxgQ50j xURtj9F3BCYqgHE5DKEx tHdsRkJmdZ53Wox+PGNv eGuux9SyQkmiq2uni4ic mWu2NgUtZUCrbrOd eLesWWO7a7SmLf28L65l IHdpZHRoPSIzMCUiIHZh jKdrzi4cgN6cRb3+PGNv lUZ1mBW8uZ1mVkCe AvK0TJglF533CjThxIOd Oofsk8vlm6ugfGm1NoUy JIMwsnLzuSuvZQC4e4Nl Mr70G6OrpBizj3Od Dak0vy22rICmt8G9dLF5 E9JcXJLhtnpdnFWraMxr XZ0vTXUhddizXIEqbS3b FFFvQ5e6XsIcHbM3 WSmgG9BkqdP3OISvnPXx DOFkcZMYvB0jyuxve9wd phacChMmWEBgHTp6ZKd4 LWFsaWduOiBsZWZ0 CrA6VDD1iNFgqO4owIkh ftwmhQ1mYtr+WQq0c5wv tFGjTG7ufEF6SM00UE01 rMRra0T7wQJ4Y0Ut FMIekjsmkdwflFQ9HTWd DMGdiC91Rq2akOhfMa7u NNMgNIW6DNXfiMAiU5Vu eC6hMjXsYQHbTHHj B3EpeTPyENmvJ582UFfm UeH6WVWlwmEdF9RlXSRi nGvdFqN3p3L1Az0ISH74 DJ23MK07hCKql4N6 yIX7C1HjWRJhfophuspp kGY4TUOeBBTdjE39Ox8h nQnbHy9iZGGgYBG7FRGx tGKbL1BpqV8qThVx FGXaSVBhK0AniYAlKEnw F423RQmlLhJ1MQMmdyPt P6FqPBZguOusKhD3r3X9 Yr4BLr97AL64SP39 pICrp6T6dQT0I9IeBMTz arwpzumgoEH8QWKiOPSm uD38Qf2gbHjeSk7bPGCx KTM3JHJlvBBjN3Ev dY9uBoCxCWGhMTUkX2Py vOUsQXtuT861BPdxPkW4 WGHyufLgR5BiSNUjyQjp SsL5l1Y1Zx7GOPec nzf4V4YsDcymuNR+PC90 GJPjWB70gUYthWGxi8br kVk9NlAcFHRqKMA0gUti WYuwh4ZkASXnC51r bGFw (more content not included)... Normal [facility] Nursing Assessmenton 022 Nursing Assessment [id number] 5#1.00CD:127 Normal [facility] Delivery Summaryon 2 Delivery Summary [...] the room. Devin Pereira M.D. Dictated: 05/31/2022 [id number] Transcribed: 05/31/2022 Normal [facility] Comment on above: Result Comment: Elec tronically Signed By: Kelli DEMPSEY, Devin Collier\.br\Date and Time Signed: 06/02/22 11:12 EDT CBC w/Indiceson 05-31-2022 Erythrocyte distribution width (RBC) [Ratio] 13.3 % Normal 10.9-14.2 [facility] Comment on above: Performed By: #### 2 [id number] ####[facility] [address] [place] [address] Hematocrit (Bld) [Volume fraction] 29.4 % Low 34.0-46.0 [facility] Comment on above: Performed By: #### 2 649960 ####[facility] [address] [place] [address] Hemoglobin (Bld) [Mass/Vol] 10.3 g/dL Low 12.0-16.0 [facility] Comment on above: Performed By: #### 2 483720 ####[facility] [address] [place] [address] MCH (RBC) [Entitic mass] 29.0 pg Normal 27.0-34.0 [facility] Comment on above: Performed By: #### 2 371548 ####[address] [address] MCHC (RBC) [Mass/Vol] 34.9 g/dL Normal 31.4-36.0 [facility] Comment on above: Performed By: #### 2 813759 ####[address] [address] MCV (RBC) [Entitic vol] 83.1 fL Normal 80.0-100.0 [facility] Comment on above: Performed By: #### 2 151171 ####[address] [address] Platelet mean volume (Bld) [Entitic vol] 9.5 fL Normal 6.4-10.8 [facility] Comment on above: Performed By: #### 2 647050 ####[address] [address] Platelets (Bld) [#/Vol] 192.0 E9/L Normal 150.0-500.0 [facility] Comment on above: Performed By: #### 2 853167 ####[address] [address] RBC (Bld) [#/Vol] 3.5 E12/L Low 4.3-5.9 [facility] Comment on above: Performed By: #### 2 609048 ####[address] [address] WBC corrected for nucl RBC Auto (Bld) [#/Vol] 9.4 E9/L Normal 4.0-11.0 [facility] Comment on above: Performed By: #### 2 662788 ####[address] [address] Discharge Instructionson Discharge Instructions [id number] 0#1.00CD:127 Normal [facility] HEMATOLOGYOrdered By: Swathi Weir on [...] Inpatient Clinical Summaryon 05-31-2022 Inpatient Clinical Summary [address] [address] Clinical Summary Person Information Name: SAEZRAJESH [facility] Age: 26 Years : 1995 Sex: Female PCP: Shanna Daniel DO Marital Status: Single Phone: [phone] Race: White Ethnicity: Non- or Language: [place]er Visit Id: Visit Reason: WATER BROKE Speciality: Acuity: 1 PP Enc Type: Inpatient Med Service: Obstetrics Arrival: 05/29/2022 07:02:32 Discharge: 05/31/2022 15:30:00 Dispo Type: Home (Routine DC) Address: [address] [place] [phone] Provider Notes: Diagnosis: (spontaneous vaginal delivery); Shoulder [...] Follow up: With: Address: When: Dr. Pereira [phone] Within 6 weeks Comments: Call for any problems. Support Group first Friday of the month at 11am Call Dr if fever>100.5 F, heavy bleeding With: Address: When: Services [phone] 06/03/2022 2:00 PM Patient Education Information: Normal [facility] Inpatient Patient Summaryon 05-31-2022 Inpatient Patient Summary [place] [id number] Patient Discharge Instructions PERSON INFORMATION Name: RAJESH [...] Follow up: With: Address: When: Dr. Pereira [phone] Within 6 weeks Comments: Call for any problems. Support Group first Friday of the month at 11am Call Dr if fever>100.5 F, heavy bleeding With: Address: When: Services [phone] 06/03/2022 2:00 PM In the event that this physician does not participate in your insurance network, please consult with your insurance company to find a nearby participating provider. Comment: INADJA CAMIELLE M, have received the attached patient education materials/instructio ns and have verbalized understanding. Patient Signature Date Clinican/Nurse Signature Date MEDICATION LIST New Medications [facility] [address]ILAH SHEREEN, [address] [place], [place] [id number], [phone] ibuprofen (ibuprofen 600 mg Tab) 1 Tablets [...] Leaflets: You may receive a survey from [employer] asking you to rate your care experience. Your feedback is important and will help us understand what we do well and how we can improve the quality of care we provide to you, your loved ones and our community. It?s an honor to serve you. Thank you for choosing [facility] Insurance Correspondenceon 0 05-31-2022 Insurance Correspondence [id number] #1.00CD:127 Normal [facility] Coding Summary.on 05-30-2022 Coding Summary. CD:[id number] Gh0bWw+PGhlYWQ+PE1FV HIoZ81tbTOdjW3DN3lCT E3WGLRPTBADPF4XIZ7qu LS9BOxaH3SbqpZi JvplmPHpWL93ZHk6DBZ5 lSpgEJkvoG2mhKCfS9t9 SnKkUS76fQ81FAaeKSWu KpO8PzMgrgokuSKz A1odIqSjkJRaTvm+PHRh YmxlIHdpZHRoPScxMDAl ZaZwqClvRM4bIc1eRMEn LWNvbGxhcHNlOiBj j3ovKUHjMOnuOV0nuHal C6OhfXY7CJSfc9g1Da49 dHI+DLAfGKL5gQvbJOfe a513IcLhe6plUYW8 pNJcZTydXKI3N96gw7V8 BOQsGXIoZRV8fQA9yD1b xVvoudmsH3RnxXMbHrS4 YRM2ySIjlN7oxYdj pgiaiH2vRqs+U03THY8F UHWZJM9GBwj3U8HeFfbw dHI+VZ81LVAmQG79rLWf qQCwr8zoqFf7WxMm CIFgXWR8xVsfHRnoc6Wc DRRzC84cbRKfp4F1OAXi dHlkvFLoMpXekJE8tS4s TOiyuyywl9afrtbr Iezfj4ahug55jI10D47o XWwcTQZiJTW3VWDvKGPx wRduni8ziG2qTu7+IDxj v4zxs6ylkVm9VcLd YGHhanFnwVfrNXS1g2Jq Nu75G8GihOyez1YyTde3 bj22jLPfj8E3eHM3SMew GXMqnZ3oDGbqHtY9 ZUArCoGlkL40lDLzRWgl Zl5fmPaosAvsHY2hCKOz fxfyFORelA2fSCXeaAUx gKkxJG2rDUQebcvx o675YxErUIA9FDQxiWEs F6AjnN9nNrBtEUOzBAUw P0GztPAxZWyiJ561YOvq KbM0SRPzeyNhX1Az XWMopFwgYxO5x7B0Gl8H e9DdpuomZWS2URtmEYH1 TaC4QaAtOoK4P8HiNtm4 HMFwnMmfAG7zL8Je DPWxlxefhexyhYB6CFJj BFAfkS40xIRnHSorOx4o r9T0q707UJKkKCTgoO84 Do8uvBarHDLjoKHT zS0hknmyp9zbifkkFmRp HXLnYQu3NXy6WEZyzGra EeMgPZU5PvS6NDI7hBGx zG3fzAuidalztR7s Oyc+F33kxG8qQCK1XDE3 fglsFWTbbsSeUH36NJ39 V8MzNykueRRjzPG+PGRp iyIiwPhmNL6aGdNi y2gii1SqASrxN0DbZURz XBfaIjt2ASPmDBZ6jPO0 nF2eOMCpDRscl8F2eAR4 F1IxurBmwk8of4mx AIReQBcqG82nyDZgl7O9 JLNzmDF3URLkhXnuAdRt sD88Hpw+HHKzvWgar2Et Oxsms4oci8otwEy4 IjMwJSIgdmFsaWduPSJ0 s4QiDi71X69oAIuwLNQp QTGrEZMqESVmkQbplh1y dL9vTm2+PGNvbCB3 cCR0qN4yLYAfEcJ8DPgm D623MpKzgUJnXrtgu3hs r4gquGk1LuFbQQLfgqBh wBicWUM5h8CvDd15 L26zFXjxIAKbJPOsNRPr WPRlnPdvcu8hlY3jQc7+ KH7uw3yysu54nJ27rZS+ SDQfVWU0qJtiBMmr EBQhnZ0vFAzhJoW8OBNj CsKlcX46hZEvIFplZd2g qNgapMfdOT6mGPXteogu y607CxTqe1luBVVm uBSoBIyuWVC3K34ag6X7 YMDoCNKiYET8pVZ6mB4i bGlnbjogbGVmdDsgdmVy vOgrXLkmQGnpZ510 IHRvcDsnPlBhdGllbnQg YdBsWOv0R8JuCsn1JUBy sJrhCF9xeFYlHQnyMw7b zSngfJjjWN3rJXTt yverh335RpFsf0ccCHIw dAStNZbtTJR4U85td4O2 HQClBBQpFUQ9nUS1vR5v bGlnbjogbGVmdDsg mrFjgLoyARuwQWfeZ119 IHRvcDsnPkJpcnRoIERh sOM6SJ44BF82aWPtw8T4 hTO3L4MfCKPazfnn vgdvmZF1PAJjOXWjbP52 Ca5zsVhwNq9qJTAjCMT1 HQKlqKIlD1NiyD8rFoIl AQUvHCUkW6YdfYBp YUglE580CAtxMzR1SZHr llLvE6CnNERwyCwmLkA5 g1L2Qx7VS7Y6CD99BX40 qPRvc8B6dRG3L7Jg IWGohrwrkzrefMY6MUJn QAUpfN61Qg2nfHzyLw2p AESrUTU0SVYtdXUkG1Hz eQ7xZaZnBMSqIGAc C9XerKYnDBakR274VOnw SjI1LYOmohJaR7YeORZl yWcdXaO3t1N0Qj5CSCf0 PE78PM21lOUlz8Z9 wOP7F8WxAJMllcsnpile uNZ4INMePJFfiI71Qf7a mCcxBc0kJBToXCV7ACNz zSEzD4BbiD7jQlWn ZDJnUCUfH7FskVIkHQqe C327SCylGhS0HVGvckYn E5BdQDUpaWmcJqY2l8X0 Ex6YSLQaWN06EZL7 tCK8EP55KU98U2UdVbsv dGFibGU+PHRhYmxlIHdp ZHRoPScxMDAlJyBzdHls XW8eZk7jFUYpECJh aJhfrFGtOoPnt8hwINUm RAyrPU7adBklK4FigUA0 SMPtg6g5Kj46S49jV9Yn dXA+BIXyiUH4bOT0 eL5mUvNuPjL4DYfuF014 WdOysKWpQfnxf5wxd9dv eKi0JkD9TKCrvcGikHsl GEV0c3QgKu96U63z IHdpZHRoPSIxNSUiIHZh jDptjz6ubZ8kAs3+PGNv uLH5fMA9aL7iRnGfMrY6 RHyeB630IpZriFTg Tnswm2ciu2uedLd9BlNp NKVhsbRbiTljUOL6a5Rw Tu37U6QyeDhem4WiXet7 yp52qNIxn3S3qTJ9 U0JdSODdwvjwfHImyGfz AD8eBFLhbiqqLIHsdF5e MYXrX2r0UxEtNbW1PEvc F6KczsY4XNIvxRUj ZLesNJD2Y68sy8Q2HMDk KQVnLLE9sVK2fB9ccIuf bjogbGVmdDsgdmVydGlj HUdtENxvK372GAMs ySshJNNlzW6mHHKefRKt eOefEX5qFRYgptonTkRY Dn1DKtqcN1PVZYZGBVSw TTwvdGQ+PHRkIHN0 kXscPUzvAXMzeE0lWIHm U8i8HaJtJkI1JQhuT4Jc EYYlthtqMp94oJ7xZtQh DdR7YBuwI5FgkcU7 TBFrlNChKIthWSH4I85o g1Y8WFPlIIMhEKV0zRT6 vC1ohFwthmjnyKYkqEfd dmVydGljYWwtYWxp Y226TBQgrJnlLmKtYzM9 QqI9NQm6G1ZgRqe7VRZk dDthTV8rsRFhHSzaJx9o hHbjiAlwAE6oCNLm fwrlYFWgxG0kHNEjwSBf kQtbXY2sQBHpbivxx968 UyZhNVN6PYKphHPnF6Dm cJ8pFbSiIUYkWCTy N8WgyNYoKLhiX275WHgt SwJ7ATAqgdXbT0BoIKIg kXexGbD6b1R3Wr1mZBEX ZWFyczwvdGQ+PHRk UZM0xBydQGsiZUFpeP1s HRUeV8s7VoFkEtR2DTma S3TxSWUycudlMj80eA3e GuBeJdK8JLctO2Nn ajO2KLHtxMPgADpwQGW7 K23ad2M8YGMeBVIpSKZ8 jBJ5mZ5kiZmvvivyfFTs dDsgdmVydGljYWwt LFvuV220JXQqmNqoDeLb bWFsZTwvdGQ+PHRkIHN0 qInoOZukUYGqcK7yNAHq V1q6HfDwHlW0YLev P7VeUZWuubazWs20nV5l FsYxNhI6UNjiI8NzilC5 VFGniPNxFTboSIB1P81r h8W8QBWnGNGzGBY2 oEL8uF0eeNajaytunWHw dDsgdmVydGljYWwtYWxp Z041DUUtaLfwVr0ZJPGe aWFnZTwvdGQ+PC90 ul05Y8EcGuppHwe4GAEn POG4iOL3sB8nKTEzGGxe v3L0yEN0M7SonlQodx9d c3lwDJCiTGfyV87r tAVho7G2AZEhgRP5FFLh zWbtUcBzqA87Thz+PGNv jQrkz2ViMrnok2gfc7rw fJu4JuFpKLTzioRu sXfaVMT2c4BoYd08O02r IHdpZHRoPSIzMCUiIHZh eXxfpn7ehJ0dYg0+PGNv xPJ7oEL8dK4iTyEt JwQ9CDabD699MnXhlIXh Nvzwi4ztc3quyNr9YoCq FLJylySbaYwjXGR3e7Iz Qm68I0VlmUrpl7Cg Ufo4lf72dBShu4B7kLU7 E7JkYVIqxjifcNHzeRci WS0gGWEzydkiUNZjlB4i XGJlA4l8IiOqSgZ4 EMdiA3BmcaV0ATExzJJl MWMbjYTSnV1dsolpu7gu iylvLrEgQZDaCQa5LHq9 LWFsaWduOiBsZWZ0 NnM9TPN3jBRmmO4viTsd whbkdA0dTfw+ZVk0e4lw gCXdQS3vqDC8UD56PB25 xIAdl6T5qKU6A5Zm HLVecpjytwtzyLZ1DVVh QEAlyI41Oz9kbPflSc4x XULiDTM5EUGbaACbH4Su rE0tRiBrZIPaKGDj B2AhgQXqJBcqQ421QLwb MmX7VBSrtxFeN8AeFYZl vRwzJeA2n3D0Je9MHW46 DX75YM21oOWou6T2 oHX2T1DdMMOehtdrjykk xGA7VFGzOYFkgZ90Eo5b iVlpWd4eHFBjGUF4XUZs eWLsE5QrgW8aNvOi QXDrYMKuK9WxqARrVIbq H228GDwsPuP6XXVowoDd Y6EeKSFslEvoJjK6n3I1 Wz4NWt71UM22AL64 aFWht6J6hUU8V4ApDHEo eojfyhvxqWV0JBJdNFNx tT35Ce0shPppQx4cMWMh PPT9LUYltVYrH2Pu tM3wLnOrOKXdDPZjF9Dm oOYiIHztX716VBzcMwZ1 NHVduwDwU1BeAUEbqInu YnT4u3C1Gq1PBIfw tyo6J1ZkWfpznMF+PC90 JXFpKW87mMMyfWOzj5yf bWu3ZaUnJKIhBTQ4wZfw LRwdy6HqJYBjW85a bGFw (more content not included)... Normal [facility] ABO/Rhon 05-29-2022 ABO/Rh Positive Invalid Interpretation Code [facility] Comment on above: Performed By: #### 1 [id number], [id number], [id number], [id number] ####[facility] [address] [place] [address] ABO/Rh History Checkon 05-29 ABO/Rh History Check Verified Hx Blood Type Normal [facility] Comment on above: Performed By: #### 1 [id number], [id number], [id number], [id number] ####[facility] [address] [place] [address] ABSCon 05-29-2022 ABSC Gel Interp Negative Normal [facility] Comment on above: Performed By: #### 1 [id number], 0409430, [id number], [id number] ####[address] [address] BLOOD BANKOrdered By: Alexandra villaseñor on 05-29-2022 ABO/Rh Interp Positive Invalid Interpretation Code [facility] BB Subsection ABSC Gel Interp Negative (05/29/22 7:39 AM) Normal [facility] BB Subsection Blood Bank ID#on 05-29-2022 BBID# [id number] Invalid Interpretation Code [facility] Comment on above: Performed By: #### 1 [id number], 2060085, [id number], [id number] ####[address] [address] CBC w/Indiceson 05-29-2022 Erythrocyte distribution width (RBC) [Ratio] 13.1 % Normal 10.9-14.2 [facility] Comment on above: Performed By: #### 2 734985 ####[address] [address] Hematocrit (Bld) [Volume fraction] 33.1 % Low 34.0-46.0 [facility] Comment on above: Performed By: #### 2 027141 ####[address] [address] Hemoglobin (Bld) [Mass/Vol] 11.4 g/dL Low 12.0-16.0 [facility] Comment on above: Performed By: #### 2 128257 ####[address] [address] MCH (RBC) [Entitic mass] 28.5 pg Normal 27.0-34.0 [facility] Comment on above: Performed By: #### 2 313058 ####[address] [address] MCHC (RBC) [Mass/Vol] 34.4 g/dL Normal 31.4-36.0 [facility] Comment on above: Performed By: #### 2 464663 ####[address] [address] MCV (RBC) [Entitic vol] 82.8 fL Normal 80.0-100.0 [facility] Comment on above: Performed By: #### 2 052738 ####[address] [address] Platelet mean volume (Bld) [Entitic vol] 9.7 fL Normal 6.4-10.8 [facility] Comment on above: Performed By: #### 2 493832 ####[address] [address] Platelets (Bld) [#/Vol] 215.0 E9/L Normal 150.0-500.0 [facility] Comment on above: Performed By: #### 2 063382 ####[address] [address] RBC (Bld) [#/Vol] 4.0 E12/L Low 4.3-5.9 [facility] Comment on above: Performed By: #### 2 018661 ####[address] [address] WBC corrected for nucl RBC Auto (Bld) [#/Vol] 7.0 E9/L Normal 4.0-11.0 [facility] Comment on above: Performed By: #### 2 025769 ####[address] [address] Consenton 05-29-2022 Consent [id number]# 1.00CD:127 Normal [facility] Consent for Procedure/Surger yon 05-29-2022 Consent for Procedure/Surgery [id number]#1.00CD:127 Normal [facility] Consent for Treatmenton Consent for Treatment [id number] #1.00CD:127 Normal [facility] Discharge Instructionson Discharge Instructions [id number]# 1.00CD:127 Normal [facility] HEMATOLOGYOrdered By: Alexandra villaseñor on [...] - 11.0 E9/L [facility] HemeAutoSS Recordson Records [id number]# 1.00CD:127 Normal [facility] Progress Note-Physicianon Progress Note-Physician Patient: RAJESH SAEZ Age: 26 years Sex: Female : 1995 Associated Diagnoses: None Author: Jose Miguel Garcia Jr., DO Postoperative Information Post Operative Note: Day 2. Anesthetic utilized: Regional: Epidural. Health Status Allergies: Allergic Reactions (Selected) No Known Allergies Problem list: All Problems / SNOMED CT 198278843 / Confirmed Resolved: Anxiety / SNOMED CT 28111553 Resolved: Depression / SNOMED CT 238759037 Physical Examination General: Alert and oriented, No acute distress. Neurologic: Normal sensory, Normal motor function, No focal deficits. Review / Management Condition: Stable. Assessment Anesthetic outcome No post-epidural complications noted.. Plan Transfer/ Discharge: Condition stable. Normal [facility] Comment on above: Result Comment: Elec tronically Signed By: Jose Miguel Garcia Jr., DO\.br\Date and Time Signed: 05/29/22 17:36 EDT Progress Note-Physician Patient: RAJESH SAEZ Age: 26 years Sex: Female : 1995 Associated Diagnoses: None Author: Jose Miguel Garcia Jr., DO Chief Complaint Intrauterine Health Status Allergies: Allergic Reactions (All) No Known Allergies Current medications.Problem list: All Problems / SNOMED CT 451728170 / Confirmed Resolved: Anxiety / SNOMED CT 25977427 Resolved: Depression / SNOMED CT 087338798 Review of Systems Respiratory: Negative. Cardiovascular: Negative. [...] The PCEA was started at 1728. Normal [facility] Comment on above: Result Comment: Elec tronically Signed By: Jose Miguel Garcia Jr., DO.suresh\Date and Time Signed: 05/29/22 17:36 EDT UA With Cult Reflexon 2021 Epithelial cells.squamous LM.HPF (Urine sed) [#/Area] 0-2 Normal 0-2 [facility] Comment on above: Order Comment: Urina ry Catheter Insertion triggered Urinalysis With Culture Reflex order by discern. Performed By: #### 1 [id number] ####[facility] [address] [place] [address] [place].plasma/Lithiu m.RBC (Bld) [Mass ratio] 0-3 Normal 0-3 [facility] Comment on above: Order Comment: Urina ry Catheter Insertion triggered Urinalysis With Culture Reflex order by discern. Performed By: #### 1 5003922 ####[facility] [address] [place] [address] WBC LM.HPF (Urine sed) [#/Area] 0-5 Normal 0-5 [facility] Comment on above: Order Comment: Urina ry Catheter Insertion triggered Urinalysis With Culture Reflex order by discern. Performed By: #### 1 7259739 ####[facility] [address] [place] [address] Bilirubin Ql (U) Negative Normal Negative [facility] Comment on above: Order Comment: Urina ry Catheter Insertion triggered Urinalysis With Culture Reflex order by discern. Performed By: #### 1 4775844 ####[facility] [address] [place] [address] Clarity (U) CLEAR Normal Clear [facility] Comment on above: Order Comment: Urina ry Catheter Insertion triggered Urinalysis With Culture Reflex order by discern. Performed By: #### 1 2455064 ####[facility] [address] [place] [address] Color (U) YELLOW Normal Yellow [facility] Comment on above: Order Comment: Urina ry Catheter Insertion triggered Urinalysis With Culture Reflex order by discern. Performed By: #### 1 3087855 ####[facility] [address] [place] [address] Glucose Test strip (U) [Mass/Vol] Negative Normal Negative [facility] Comment on above: Order Comment: Urina ry Catheter Insertion triggered Urinalysis With Culture Reflex order by discern. Performed By: #### 1 6521901 ####[facility] [address] [place] [address] Hemoglobin Ql (U) Negative Normal Negative [facility] Comment on above: Order Comment: Urina ry Catheter Insertion triggered Urinalysis With Culture Reflex order by discern. Performed By: #### 1 3770056 ####[address] [address] Ketones (U) [Mass/Vol] TRACE Invalid Interpretation Code Negative [facility] Comment on above: Order Comment: Urina ry Catheter Insertion triggered Urinalysis With Culture Reflex order by discern. Performed By: #### 1 2566452 ####[address] [address] Nitrite Ql (U) Negative Normal Negative [facility] Comment on above: Order Comment: Urina ry Catheter Insertion triggered Urinalysis With Culture Reflex order by discern. Performed By: #### 1 2617825 ####[address] [address] pH (U) 6.5 [pH] Invalid Interpretation Code 5.0-9.0 [facility] Comment on above: Order Comment: Urina ry Catheter Insertion triggered Urinalysis With Culture Reflex order by discern. Performed By: #### 1 8676899 ####[address] [address] Protein (U) [Mass/Vol] Negative Normal Negative [facility] Comment on above: Order Comment: Urina ry Catheter Insertion triggered Urinalysis With Culture Reflex order by discern. Performed By: #### 1 7463534 ####[address] [address] Specific gravity (U) [Rel density] <=1.005 Invalid Interpretation Code 1.005-1.030 [facility] Comment on above: Order Comment: Urina ry Catheter Insertion triggered Urinalysis With Culture Reflex order by discern. Performed By: #### 1 3840458 ####[address] [address] Type of Urine collection method Clean Catch Normal [facility] Comment on above: Order Comment: Urina ry Catheter Insertion triggered Urinalysis With Culture Reflex order by discern. Performed By: #### 1 3847279 ####[facility] [address] [place] [address] Urobilinogen Qn (U) 0.2 {[place]'U}/dL Normal 0.0-1.0 [facility] Comment on above: Order Comment: Urina ry Catheter Insertion triggered Urinalysis With Culture Reflex order by discern. Performed By: #### 1 1025989 ####[facility] [address] [place] [address] WBC Auto Ql (U) Negative Normal Negative [facility] Comment on above: Order Comment: Urina ry Catheter Insertion triggered Urinalysis With Culture Reflex order by discern. Performed By: #### 1 [id number] ####[address] [address] URINALYSISOrdered By: Paulina Dobbins on 05-29-2022 Bilirubin [...] Interpretation Code Negative [facility] UA Auto SS [place].plasma/Lithiu m.RBC (Bld) [Mass ratio] 0-3 /HPF Normal 0-3/HPF [facility] UA Auto SS Nitrite Ql (U) Negative (05/29/22 6:35 PM) Normal Negative [facility] UA Auto SS pH (U) 6.5 *NA* (05/29/22 6:35 PM) Invalid Interpretation Code 5.0 - 9.0 [facility] UA Auto SS Protein (U) [Mass/Vol] Negative (05/29/22 6:35 PM) Normal Negative [facility] UA Auto SS Specific gravity (U) [Rel density] <=1.005 *NA* (05/29/22 6:35 PM) Invalid Interpretation Code 1.005 - 1.030 [facility] UA Auto SS UA Spec Desc Clean Catch (05/29/22 6:35 PM) Normal [facility] UA Auto SS Urobilinogen Qn (U) 0.8291962 {[place]'U}/dL Normal 0.0 - 1.0 EU/dL [facility] UA Auto SS WBC Auto Ql (U) Negative (05/29/22 6:35 PM) Normal Negative [facility] UA Auto SS WBC LM.HPF (Urine sed) [#/Area] 0-5 /HPF Normal 0-5/HPF [facility] UA Auto SS Vaccinationson 05-29-2022 Vaccinations [id number]# 1.00CD:127 Normal [facility] Consent for Treatmenton Consent for Treatment [id number] #1.00CD:127 Normal [facility] Discharge Instructionson Discharge Instructions [id number] 5#1.00CD:127 Normal [facility] Inpatient Clinical Summaryon 05-28-2022 Inpatient Clinical Summary [address] [address] Clinical Summary Person Information Name: NADJARAJESH [facility] Age: 26 Years : 1995 Sex: Female PCP: Shanna Daniel DO Marital Status: Single Race: White Ethnicity: Non- or Language: [place]er Visit Id: Visit Reason: CYTOTEC Speciality: Acuity: Enc Type: OB Triage Med Service: Obstetrics Arrival: 05/28/2022 08:35:16 Discharge: 05/28/2022 17:00:00 Dispo Type: Home (Routine DC) Address: [address] [place] [id number] Provider Notes: Diagnosis: Problems Active (08/25/2021) Smoking [...] Follow up: With: Address: When: Devin Pereira [address] [place], [place] [id number] Business (1) 05/29/2022 5:00 PM Comments: Call for any problems. Return for contractions closer, longer, and harder. Return for decreased movement. Return if ruptured membranes or vaginal bleeding. Patient Education Information: Normal [facility] Inpatient Patient Summaryon 05-28-2022 Inpatient Patient Summary [address] [address] Patient Discharge Instructions PERSON INFORMATION Name: RAJESH [...] Follow up: With: Address: When: Devin Kelli [place], [facility] [address], [place] [address] [facility] (1) 05/29/2022 5:00 PM Comments: [...] Leaflets: You may receive a survey from [employer] asking you to rate your care experience. Your feedback is important and will help us understand what we do well and how we can improve the quality of care we provide to you, your loved ones and our community. It?s an honor to serve you. Thank you for choosing [facility] Normal [facility] Insurance Correspondence Off 05-28-2022 Insurance Correspondence Office [id number] 1#1.00CD:127 Normal [facility] Coding Summary.on 05-22-2022 Coding Summary. CD:[id number] Gh0bWw+PGhlYWQ+PE1FV BXoS40mfWQtlJ4CQ0wDJ C7HHFCLKWYORW9VBI7bb TI0EDnmG0ZfdjGq QfulrBSeUX14VUp6ZGD0 eZepUQpyrN3czOWwA5b8 JkYqFX49yJ23ZWhzZWPm ObU7FwEarpbgyJFb S3pwQkZvhSXeUhf+PHRh YmxlIHdpZHRoPScxMDAl ElKlgHidGN6qIs1oTWUz LWNvbGxhcHNlOiBj x2edDRIrMUhbDK3oiJgr W5RyaVW7NJDrl2s0Wd42 dHI+CWJjAPT2jHqnCKss y837QcHqj3vkWBJ7 sTVvEPedELG3J39cm4R5 CABbDWQoZQW4gCD1mJ6g mXyuefpoN4QnbRUbFdN9 MSX7vOAmaH2acQhf jxjulT2rIef+E50BPK9X VEVUMP5MAdg1B4ZhQcct dHI+CT68JPEnBC70eNQa fXGzb2jedUw2MkHi XAQcKEX9tKzzBHnvw0Sv ULCjA45vbZHle3R4AFZg aSnycHPvArPteQA7tS6v XRynemlly5deqams Exycn9yalg02xC05C94b VLguMKIeSAV5DHIkXFLp wJgpqx4rfM8rJy3+IDxj v7nkf3jvjJa5RqUl JOZvdaFajKziVVR4z7Cr Mw86F3PwwUrnn2DiXbr4 nh82wKZow6I8xMW2GUbt BPMolG5pUFugLqD9 JEDrGkDybO01bLWzWSyo Cd9smOldzPdrTO0jYBTt wipoVJZxeA0pFNMbrQGu fVkpTD1qMXVqslca l547LvLoPEB9OPUtqMKj E7JxaZ5eDfOqEDCcFQOm M3JnhJCkIZakH056JSvx XjZ4IMXbaoLqO7Au GOVmoEfiFeM5x2R2Ii0Q q7KydcfxPKZ4PFbnZRS5 VuK3ExZwIaK7N7PeLpi9 WWAqdIpbGS9nK5Ik OBUbjplwoykixCX1BPDz SFOscF36gSCxWKkcQq0l m9C4c643DYTuRTIflG58 Sz8vjQgnGIKqfEDN nU7nfwreq2wuqylyDuZf FTWmEJk4OKu8VCOvtVsu MhEcZNC6OtA4XSY6wLLp iB8ouQpwsyvltR7c Oyc+L44lfB2uVKQ2ATV3 zcfyFDSpbzRnDV37XC90 B0SfKnkfpIDwrAV+PGRp sqGsfRlkXQ8aVwHh b5geb8LxKXmaL7WwXGLi THugBuh4AFYhTDQ3bSG9 hH3lNAHeHZjdo4E0aYM7 F6ZgwjShps4tg0rm GASdFUewN63uiHAtc3V6 XGOblXX7YFDqeIrjEfSb sR48Nkf+JWZvyMvbc7Bx Jjilu8yku1xixDh2 IjMwJSIgdmFsaWduPSJ0 k0SuXk95Y96lVWwaTHAe ZNEgXAOnTLJuxQlbuq3n nO2fOh2+PGNvbCB3 qPD0zB0mMSQqTbK6HKdu P831RoTghPShBrszg1pc l5dxjQl9IwDuEZLrtyLy xVpbNQF3d1GjXy36 E20eQStbTNRiGXAlUTMo XEFqnQdgnu2xzW5pKd8+ DL5ms8jbbm35mM33xSV+ LWOgLKL9iBnsHHxo FJJimF0mHHdiHxA6XQWx YnZzyC14rWKdXUstPk6p aRhmwOvfEL3lSJQdvumt i859MhFay5qiNPJs wWJtDYmwNZJ9D36lr4I2 DLFpRVQfMPZ7jEX1tR5y bGlnbjogbGVmdDsgdmVy sSfcCMjhJActJ439 IHRvcDsnPlBhdGllbnQg NyFoETg9P4XgWbl3BVVl iFxnDM3kqYXdSBbuSq8e vUobcBudGU0oXYCu fncol301NcQfg6dfIKOr kBXtUXbtQAG5Q73ba3K4 FEJvGTQcQBB6nMY7eP2s bGlnbjogbGVmdDsg nzGamHqkUDikFZwxD326 IHRvcDsnPkJpcnRoIERh xLN2GZ28YY00mFEss7J9 uPT2J3UuIUEiearw lmgrzHN9TCIfAKAasW85 Pr9aqGngHx6gUEBjTOK2 GHVzwKFgC1HqsN3bVoUk ITJwLGZhT7IudIPc YNabZ038GJizElY6KBPx pxVfF6EcHTSqaCpfAqK7 c9U3Hu4YX3I4PP73UL50 kHQmk9F3zTQ0M2Rg FCEpgsxzksvkgRZ2OFBg YPOtjC62Do8rpMpbIu0m ZTZpCXY2HZGzpEFrH0Kw sN4rFmKrHGAeLEAs U8GgeLDgAWinN813MGfm MlH5MITpsoCsQ3GsUEPh sBqjOlF6y6S3Ep2FPJg2 LV08ME45jEVox6I7 jCR1Z1LbXQUmbjvoepvn jHS5BQWsWDFleH77Nw8q tEvsYs9sNTKjIKF4TLFz eJKvA5XhuJ6zJnBw FMLuZRNpG7EafFLtYHtq Q669AZawQrB7NXMkytFe Y4WhFSZimYhmIuV5u5O2 Fk1JFVDdWA74LYA6 bFK9SB87IR59H3VbEdqg dGFibGU+PHRhYmxlIHdp ZHRoPScxMDAlJyBzdHls PQ9nEe2aWOCvCTRa gEksoWVhWjDwl8orAQQj ZMhyDL6ccUpiW6AdxWO5 WAKjy8j4Fi93D32wJ7Cr dXA+QDNiqGA1uJG5 kE1nLzPkJsW8NKhxG816 QqXfdAUyGefcy2nbi9ya dVm8PrP3FZIxclTqxCmo TYX6w7UlVo18T61c IHdpZHRoPSIxNSUiIHZh hAojpj4lqA7cMa0+PGNv bUB3lTO4gV4dWzHfVbG5 XPheB415LtGiuGRj Tmudd1wgv4fhtLe4HvMo TFNjqtQuyFqiBUO2v7Jf Qi89N8LtyNxjz9SpDxd3 we76oNNge6G3nIV7 K1KmVIEtxdvzgPBpfUzc CS2hFNWimcthTQLrwP6w WVIfA9i9OzJpSvF1GOfg C0NqdcS2KVNsvAFi BNezPQB2O81xd4E9QBBk MWYbCJQ6yPF5hU5dgOqr bjogbGVmdDsgdmVydGlj JDmtMTosR971PCJh oSsvRSAovF0mGPBgtXFx uSbxAH4dSMUeqdioUqQN Gk1HRfwiS2RSQEEYZNGj TTwvdGQ+PHRkIHN0 dSlqICppLRSqbV7aEXGg L2m7PhUhSbH8ETmpG7Va EJUeowndYz59pI9kOtPn JpM0VNfkY2SwcuX6 QZNyfAEjNYqwRWF6E04w e1X3AMMyEOFdIBC2vKG8 nX5ntNtyxrmooJWyrYkt dmVydGljYWwtYWxp G575PUEygEwuAnTdOaR0 SwU2GRf9T9NlFbf2LHBx rSusES1cmDJoCCinMo8n mKyxlZmpDV9uUCCj kvhtECFhbR4qMRJdkVGl vSgyJT7dHSWnqfgiu032 ViRsAJO1HGDkbBJlV4Sz hX5oPbVtIFScDRRv C0GzuRMuHMxbG645CVho OvT9HSPtqrFrU8AhPQEu hDoyDiV1u4J9He3xXZEL ZWFyczwvdGQ+PHRk OXK4qSipAHhgXNBppD4m VJDtZ6m7XiLbFjP4GJai R9XmQEGkkzozAb13aM8n QgBcPiM8FHabG7Ll ziD3MIIzkKUtQMrkUBX0 Q18xa8M3XIIhWZWoDNU5 fBW6iD3xvUzfnmejlEAj dDsgdmVydGljYWwt YIjiP857NNUieOmwZlFj bWFsZTwvdGQ+PHRkIHN0 hLsuYQwzNUSzyM1tBGRf J8p9XmRfOcI5XNhr P5QtJQJjxemuZt97mW7q PsFrDoY2PEekA6KgssS4 AJQhqVAeWWjwBYW5W59g x6D7UPNdREDgZFK9 dPD7eJ5hrPtlmchygYBl dDsgdmVydGljYWwtYWxp K802OYIpiXolOilrCfOR bl5tKQ6eHfesoFY+ ZI32er03F2CfYswnEtn9 LEThAAV7nOT8iP0rMGTp TWuoh6P6bUX4X5IzymDa ue6gk3jsFOTgNJyh V32wsALvr7T1HRTnxZP9 GHPatPhuEzWqvJ08Pdf+ FJXubVxtn3CxAzpfh3hh y1dccAg4XpVrKLDg hmNatFeiBCE0j0XnBe26 J63yHJozVIXeZKSuZEUy KCXrzRjepe8ggY7bGh5+ HMRppJV2eLO4yC5l RvSlEgY9IDtlC179WwDq vSKzWjmxn6xol6vhiQo0 IjIwJSIgdmFsaWduPSJ0 z8QcGr31D5GlzIzw e3ImHvt4bt04cVHkm0F0 lOD8Q0FhDSCtjvnrnNUy yAzdYY7wDWHhlwhyBUBb bW6zWBCcE1v2YvQc KgL2GHgbQ9YxveR7VGZd gHBwIXIcwAHQtS2udnvj y4wtftetUyRuEQFzOZm4 ZUg6MOKdbWvtEaVm OQK0KeM7CXW8eMOspZ0o lTzvtxjipX4pDqg+UGh5 v1vxcFEnFW5dqQU2FI09 CN11pTSyp9N2mOM5 H7FgGZKnogvafdurqCK8 OAEfNBNweB47Tr2odBhv Gc4nZDYmLEL1PPNxbTCu V9ZbhS0fQrWdYIHg PJXnZ1VicAYjDHrzS426 VWetYoE2VPBiqqFeN2Jf OGZgnFfxHtZ2i5K5Md1P JJ94LT25DJ26nAZq a4D3vFP0Z3AgNRNkzgcb yaendQW8GMRfABIcnM94 Ha0gjCrzOh8uZMTwSDG3 ZTXdbHTkD0HbuV6o JtQfGVDsJHNsZ2QvrKLc BWwhI701BKqjDlK9PPCr cfBwA8AkIYTclSorUpU7 a2F1Hl9TCa86ZA42 QD32wAKko6P3oFK8J0Fb DQEvoepbbfaupHV0FHWl LBWhlR74Mc1opFxiDg0o MTOvCJN7SSUxhHAa A7AspQ3tCeFtNOHhFAJg N6GjuEQbDOldR765WGxb VgA9XWUlbtGpL6LbELHu tRufNpO1w0D2Rz4Q TTrabov6U2BwTikriLO+ OR78OEQuSI05qGPoyZMz n2ltpIj2YkUdKPVdHRD3 mLqpBCvkx5ZjXUFh Y29s (more content not included)... Normal [facility] Group B Strep by PCRon 05-08 Group B Strep colonization by PCR Negative Normal Negative [facility] Comment on above: Performed By: #### [id number] ####[facility] [address] [place] [address] Physician Orderon 05-07-2022 Physician Order [id number] 7#1.00CD:127 Normal [facility] Physician Order [id number] 6#1.00CD:127 Normal [facility] Coding Summary.on 03-06-2022 Coding Summary. CD:[id number] Gh0bWw+PGhlYWQ+PE1FV XPeC22dqOJttF2IO6pKS D9YOASROQONFB6NNW7pq FW7UBqaI2EbrnOh BagoqLXxTN21USk1NEW0 aMfbDGpdpH4abRDrL4k4 QoAdSF30bO77DYsdOIWe RfQ4MtHbijskxTFl G2xgLuSczGPeMhd+PHRh YmxlIHdpZHRoPScxMDAl XdDqxMybZE5yHl1xWDUl LWNvbGxhcHNlOiBj i3ddAXRsFZnwLD3fvGcv X0HwhIU2YBFnb6t3Jc28 dHI+SORaMRP5mDiuRQtt n244LmZfo0inOON3 rPKlRJmoNVD7F37cg3D0 SQSfTPXyQQS1xFA5wL0m rAnoxdxzG0WksRNsJuG0 BWY3yFYdoW0ocSsg pfoxpZ1kJmi+G68PGY5E SBDROT3HPtt3K5FtKszk dHI+HV62VCDcSU45kHNe rVJkh7nsvCc9PsCa ZALeYSB9jMspSQbvo3Qp DGGoY14evTErb6C4FLZg gBlywMJmZkOtmCD4pA2q IKtragoju0ffgawu Frscl0ndza55kE59Y79d HWvbKPEnEIG0ALOxQGOb fHgbuh9edT4fAs7+IDxj k3ocw4ayxYi5YvQo FIDgdqRyrCduOQI9i4By Oi66Q1YneKopc3NiXmz4 bi04jXZxc8F4hPI1MAgp VVFtqI7zICzkEkB4 EQOwBlWntC73ePJlJAjy La1qtQvruKpfKK3qZCJy rtpcMGLwpE9rHPMbeBNb iYnnCX6kRSNeaxfc q734VkJnBCB5QOCzvTKo K1VkmJ9hWzPoAGGzPNXa G4ZgrBFeLEpaT437JBxr GgC5NRQofhVdU1Mv ZWLvvSgqUbA6t6F3Pi3C c8WfhohhLJO5VPckBFR8 HfEjQjWkScV0G0BxZoy0 CAYlaBgrZO8gB1Iv EZVawlhmorhejKF7LMVx HGFjfF88dRLwVPmtPd3v m2K2o103QALnKDLjaU98 Uq0quRlePSGawNAQ hI9jnaqlg3dtfeibZwZs JRXwLYa5IXj5DIXucOce LxKdXFY3WuK1DHB6wBOy eI7amQryfhjoeE0r Oyc+H66mbO4sZTH0BTZ0 igpzRDUlnuCoMJ36GC57 H9DvOmnsbBQiyKJ+PGRp vfIdtBuoIG7zVhOr h1zrv9DhEIfgO4JkTQEt HEiuKow6ZEFkPXC9pVV6 vK6eYSSqURcxl8M1xVS9 Z7RlnvTfqu7cg1sh LZZlQUbtI49cyVBxq9K5 VEKrbHM8ULWtaLalHsDd mQ50Gyo+FNQqqAhqi6Wb Vuaji1sfh3qsuMs6 IjMwJSIgdmFsaWduPSJ0 h3JvSy39P99eQEpwEGSz QGAbFJZxRUCgmTxkef4z fJ7bYb5+PGNvbCB3 fSR9xG0zRSEaBlH7KHfm K701YrBqrXVvTjrgm5vm q1iulOx1LwLrXLSffcAj wWvuHPZ1b1QtXy11 S43oPKglGHFjVZIgZVEb FOGspRikby0tlS1oNq7+ IO3uo4jitv25lN92tBX+ XAVnQAQ0eQneKHil GYYlsL6xFLwdGwZ6DKMs ArUabG31eJSmDOiyKj3h lIrbkSwlTM1yQANlntza e110MjWok1hzQAYt xEGsOYzsHBN0N10fc1K8 QYUgCLBwUUU5rOP4iJ5s bGlnbjogbGVmdDsgdmVy iRbsRNwhUSayN835 IHRvcDsnPlBhdGllbnQg DgFwEOt7Q2WcCqq0LATl bJszKD7lyXLvXZlhPa2c eIcudRxbUC8kXPGm ogglw188HuYtq0peWDFn zCZdNHmmQPS2N14go4E2 PAHdZAOoDBH7aOE0dK1o bGlnbjogbGVmdDsg zzRcqLpfSKjrOBaiO264 IHRvcDsnPkJpcnRoIERh aKZ8NU27UK58lXCuu8B1 iOG0H1UeGXSbxbas qzvqmZQ0MYBgIUWjiH33 Cc9viYxcGg4rKUCmLPU0 TSRjkQFoF0RkkC7rZfOl AZXpGXJmH3QeeHNi ABhoE966FOalMyB8IHAd vlIiV7DyJWCfoKvyXhF3 a8Z1Wy0KJ6L5GD85ON92 fLYfs8L9dVB8B4Ue XHFsahxshnblfLR4WFWw WFHepW97Jx3goPilVs4x XPSkCYY4EPHukZOuM6Ee gG1pWrYdJTIzMXFg H5DlxQHmNBonD538LZtq SbI6TMAmisMmN2PvUPQw vAtuDxN9g1M2Vx4GQDo8 ME95LD07nDWgt0A1 lLE9I1KoESFwlvmjkeyh vGK9EDFsMQOlhA37Ot1r lFrdBs5jWEZbRKJ7YJSh xFCoT3RciR0yEgWi BQTcSDZiT2SmdNYtPJwv R418KUgaLxD1TDLgfaCa S1TbLORznMgpCoI5c9V9 Zb9EXFWhUC64OIQ8 bVJ6FK81VE58P6WzFydh dGFibGU+PHRhYmxlIHdp ZHRoPScxMDAlJyBzdHls WQ3cRs6zUMJrDMDk oBjdkUCsQqBkj2ajNZOo WYbjXY0aqGbmT6DzcYC8 DCSmj8t0Rv03E96vT2Vh dXA+QCGsnRV9uVI8 aH4fGlYgLzX4HMegM649 PzNuvNVzKkwww3mxz5dw eBe8GoM1DQJaenUayTzc FBZ9q3OtGu63F59v IHdpZHRoPSIxNSUiIHZh rHyglj8dgG1tNj9+PGNv bEC5mMA5jA9pPuOmXnO0 FAybW500RhZelDDa Mbhtc2bds4nnpVg5PcRl NWJfapGnoYyrHKC4h7Jp Vw89Z2WmxHtdw7CcEdi7 kj03nSKje2R9iGZ4 O0WvBHNivrbqbCWkpCge XR2vHVDwctybPSRdwY9j ZKRjX2j0JzIrBfO1CTkv G3FmuaF5RFIdyTFq YAbgKLZ9H98uj1Q3YQTv YQVsMEW2oVC3pC2boTda bjogbGVmdDsgdmVydGlj ERvjPHcdU632FNTt eBxlRLHghC5jTNCnxNRj pAydXO1hZGSowoqjGfWK Mc8GZsvwJ3DYAGEQUOAo TTwvdGQ+PHRkIHN0 iIchEZclAKBqvD2pKZJr Q1w1PoGmYkK7JAbbP5Tk HQOkixqgMd39hL3lDmFa HoP3NQxtO3SdouO2 NUBqoEMzDBvqFWK1B51n e2I7LWCiDQCiQIA8cYE6 oA3znIeirznywQNkkGkd dmVydGljYWwtYWxp K137YOSbjAolXsIuWnG6 DoX2FId9C6NkRet3LLCk gVpyTV0wgWYfHTqgDz7h mFmilKhnYP9aXXPr mnwoSQWklO1qQASaxBRo fPrcEF8sEXLvrlyzo811 TkIcJNF5TVLxwWKhS1Ib eW6bHrGpZXRmVNOx Q4XeoRYmMUnaA458LMag UkP0RNHpshHxB0LwWRWj yLaoIlQ2q2T2Ef5rIHPT ZWFyczwvdGQ+PHRk YPM9uFkpRIniAPLmyL9l OCFwF9j4LsOtVjS1OBqf Y3AnDVUaigtsVf32mH1o IaHiWoG2ZYneF5Kg xnL2KYEdrCBgEGeuGBQ5 S22pq4F2MSFpGTCbWMP8 kYJ6vP5baQruokfslLIz dDsgdmVydGljYWwt ESxjL945INUhtYahKyCu bWFsZTwvdGQ+PHRkIHN0 cThrBMwaCRYqcR3kJKRq T4t5KiXhBdY4EEpy X8RqWQHytqxlQe39jU3b FjSbPcD8LZnsJ3YzdpY5 HRCfcYYtPQddZJO5H19v h2U0QBVoLYJlJAP9 oDX2xT9nqVuyojjbvMLx dDsgdmVydGljYWwtYWxp Q557RUXprMbaDu30lTVt kInbbiB8R3UvBaye dHI+KH66KYSlWA92cKEz tZMbi2xzwEn7VpBdPCBy VJT9qIcxXPclc8VrVMGr Y19rfZQsp8A6RZNc xXqsxDYuHiJcsML0qE1p HGyezrsrd0fzoiucAtxz v6rmbn75pO51U14bLWji ZHRoPSIzMCUiIHZh lNqwbf4foC2bZq3+PGNv iTO1wEO7jQ5oWwDeQtM1 YNcrE791ViLwfNVmUfnt d4mwc2ezbOk7FrZf CSCdcnPeuKfgHNE8h4Kw Sv00R39tQPhlDMMcHOCo QAQkIMVmrHwajr5hdT7x Ii8+LJ0os6xjbq91 jX12nOJ+DKMcVMN1wHbw LSzhEXEiqO0eAAzgKgA6 MNNkRqHelT46gOCaYKrr Ci7xgFmbtQziGR0z NTGysnclo561SdZyz0nx YPJsiNAlTOawFHQ9P48t g6F0UGYoJBHuGFG4vLL4 eV2gwLcruahcuBOf dDsgdmVydGljYWwtYWxp Z428DHUfaSqsEbMujDAo R8xcllFWXD0vOxsgrSU+ WYKeQAV8lAunNXje OPKxyQ8lNBQtE3t2CtJp UbH0FCwiG3CyiaD1MFRx yAZvRZEjmSTLcI6syrer c9izrrvyWpLbVMUk ZQz8IXr0YAKgsBqiHnAf YJX7ElS6AZM8mHFiuD9i mJyyoucubE2cQve+RklO OjwvdGQ+PHRkIHN0 lXukNQziIZOnuQ1kHZCq R5i5IhFmPdM5HTykX0Qd tlV2GWStnAToRDZvpTQF gF3ddhivm7qqdfqx QgTzHZZzNAp8FBr6EEDf qUlvBlAxIMK7HaS1QTU6 mPPcqN6pfNbrrbgzwY2p Oyc+TVJOOjwvdGQ+ VMTwQEL6tQgaZDpaWRLj nV5zMTSpU3e9UoZlQhO1 YAzdJ6JpoxE7XTOfcUDi TJXsiLDRgN2iuriu k6mdtdpzUoKpSHZzVFi0 IDg5DUXoqLrqRhDlDZE7 XdR7QXT2bDCxmZ2pjIsd eptehS8wOob+UGF5 CVT3VM38IB92G0IuBncj dGFibGU+PHRhYmxlIHdp ZHRoPScxMDAlJyBzdHls ZC2rIq3rKPFfMPPa bGxh (more content not included)... Normal [facility] RPR with Conf Rfxon 02-25-20 22 Reagin Ab RPR Ql (S) Non-Reactive Invalid Interpretation Code Non Reactive [facility] Comment on above: Result Comment: Perf ormed at: [facility] [address] [id number] PhD Ed Yeboah Performed By: #### 1 [id number] ####[facility] [address] [place] [address] Consent for Treatmenton Consent for Treatment [id number] #1.00CD:127 Normal [facility] Gest Scr Glu 1 Hron 02-23-20 22 Glucose [Mass/Vol] 121 mg/dL Normal 55-140 [facility] Comment on above: Result Comment: Posi tive Screen =1 HR > 140mg/dL Performed By: #### 1 [id number] ####[facility] [address] [place] [address] Hct & Hgbon 02-22-2022 Hematocrit (Bld) [Volume fraction] 33.3 % Low 34.0-46.0 [facility] Comment on above: Performed By: #### 1 [id number] ####[facility] [address] [place] [address] Hemoglobin (Bld) [Mass/Vol] 11.6 g/dL Low 12.0-16.0 [facility] Comment on above: Performed By: #### 1 [id number] ####[facility] [address] [place] [address] Physician Orderon 02-22-2022 Physician Order [id number] #1.00CD:127 Normal [facility] Vital Signs Date Time Vital Sign Value Performing Clinician Facility 12-31-2023 10:56-0500 Body mass index (BMI) [Ratio] 34.51 kg/m2 Maame BARR Work Phone: [facility] 12-31-2023 10:56-0500 Body weight 88.36 kg Maame BARR Work Phone: [facility] 12-31-2023 10:56-0500 Diastolic blood pressure 56 mm[Hg] Maame BARR Work Phone: [facility] 12-31-2023 10:56-0500 Systolic blood pressure 108 mm[Hg] Maame BARR Work Phone: [facility] 05-31-2022 15:01-0400 Hourly Rounding Devin Pereira [facility] Comment on above: Result Comment: discharge instructions g iven 05-31-2022 14:36-0400 Hourly Rounding Devin Pereira [facility] Comment on above: 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 05-31-2022 13:00-0400 Hourly Rounding Devin Pereira [facility] 05-31-2022 09:24-0400 Body temperature 98.06 [degF] Devin Pereira [facility] 05-31-2022 09:24-0400 Diastolic blood pressure 73 mm[Hg] Devin Pereira [facility] 05-31-2022 09:24-0400 Heart rate 49 /min Devin Pereira [facility] 05-31-2022 09:24-0400 Mean blood pressure 90 mm[Hg] Devin Pereira [facility] 05-31-2022 09:24-0400 Systolic blood pressure 125 mm[Hg] Devin Pereira [facility] 05-31-2022 09:24-0400 Blood Pressure Location Deivn Pereira [facility] 05-31-2022 09:24-0400 Mean blood pressure 90 mm[Hg] Devin Pereira [facility] 05-31-2022 09:24-0400 Respiratory rate 15 /min Devin Pereira [facility] 05-30-2022 20:40-0400 Body temperature 98.24 [degF] Devin Pereira [facility] 05-30-2022 20:40-0400 Diastolic blood pressure 72 mm[Hg] Devin Pereira [facility] 05-30-2022 20:40-0400 Heart rate 61 /min Devin Pereira [facility] 05-30-2022 20:40-0400 Mean blood pressure 86 mm[Hg] Devin Pereira [facility] 05-30-2022 20:40-0400 SaO2% (BldA) [Mass fraction] 97 % Devin Pereira [facility] 05-30-2022 20:40-0400 Systolic blood pressure 113 mm[Hg] Devin Pereira [facility] 05-30-2022 20:40-0400 Mean blood pressure 86 mm[Hg] Devin Pereira [facility] 05-30-2022 14:51-0400 Body temperature 98.24 [degF] Devin Pereira [facility] 05-30-2022 14:51-0400 Diastolic blood pressure 70 mm[Hg] Devin Pereira [facility] 05-30-2022 14:51-0400 Heart rate 52 /min Devin Pereira [facility] 05-30-2022 14:51-0400 Mean blood pressure 84 mm[Hg] Devin Pereira [facility] 05-30-2022 14:51-0400 Systolic blood pressure 114 mm[Hg] Devin Pereira [facility] 05-30-2022 14:51-0400 Blood Pressure Location Devin Pereira [facility] 05-30-2022 14:51-0400 Respiratory rate 16 /min Devin Pereira [facility] 05-30-2022 14:45-0400 Blood Pressure Location Devin Pereira [facility] 05-30-2022 14:45-0400 Respiratory rate 16 /min Devin Pereira [facility] 05-30-2022 08:00-0400 SaO2% (BldA) [Mass fraction] 98 % Devin Pereira [facility] 05-30-2022 08:00-0400 Mean blood pressure 111 mm[Hg] Devin Pereira [facility] 05-28-2022 16:40-0400 Hourly Rounding Devin Pereira [facility] Comment on above: Result Comment: Patient declines vaginal exam due to expressing not having any pain or noticable contractions. RN notes decline. 05-28-2022 16:00-0400 Hourly Rounding Devin Pereira [facility] Comment on above: Result Comment: Discharge instructions g iven and educated to come to hospital tomorrow at 1700 for induction. Educated on induction process and what inductions intail. RN answers questions from patient. Patient voices no concerns and agrees. 05-28-2022 15:00-0400 Hourly Rounding Devin Pereira [facility] Comment on above: Result Comment: patient resting watching tv with fiance in room. 05-28-2022 15:00-0400 Promise to Return Devin Pereira [facility] 05-28-2022 14:45-0400 Blood Pressure Location Devin Pereira [facility] 05-28-2022 14:45-0400 Body temperature 98.06 [degF] Devin Pereira [facility] 05-28-2022 14:45-0400 Diastolic blood pressure 54 mm[Hg] Devin Pereira [facility] 05-28-2022 14:45-0400 Heart rate 64 /min Devin Pereira [facility] 05-28-2022 14:45-0400 Mean blood pressure 68 mm[Hg] Devin Pereira [facility] 05-28-2022 14:45-0400 Respiratory rate 16 /min Devin Pereira [facility] 05-28-2022 14:45-0400 Systolic blood pressure 97 mm[Hg] Devin Pereira [facility] 05-28-2022 14:00-0400 Promise to Return Devin Pereira [facility] 05-28-2022 13:00-0400 Promise to Return Devin Pereira [facility] 05-28-2022 12:00-0400 Diastolic blood pressure 53 mm[Hg] Devin Pereira [facility] 05-28-2022 12:00-0400 Heart rate 50 /min Devin Pereira [facility] 05-28-2022 12:00-0400 Mean blood pressure 66 mm[Hg] Devin Pereira [facility] 05-28-2022 12:00-0400 Systolic blood pressure 91 mm[Hg] Devin Pereira [facility] 05-28-2022 08:47-0400 Body temperature 97.7 [degF] Devin Pereira [facility] 05-28-2022 08:47-0400 Diastolic blood pressure 59 mm[Hg] Devin Pereira [facility] 05-28-2022 08:47-0400 Heart rate 64 /min Devin Pereira [facility] 05-28-2022 08:47-0400 Mean blood pressure 74 mm[Hg] Devin Pereira [facility] 05-28-2022 08:47-0400 Respiratory rate 18 /min Devin Pereira [facility] 05-28-2022 08:47-0400 Systolic blood pressure 103 mm[Hg] Devin Pereira [facility] 05-28-2022 08:45-0400 Blood Pressure Location Devin Pereira [facility] Encounters Encounter Date Encounter Type Care Provider Facility Start: 04-27-2024 End: 04-27-2024 ambulatory MAAME SUNSHINE Not Available Start: 04-06-2024 End: 04-06-2024 ambulatory MAAME SUNSHINE Not Available Start: 03-23-2024 End: 03-23-2024 ambulatory EARL ZELDA Not Available Start: 03-02-2024 End: 03-02-2024 ambulatory MAAME SUNSHINE [...] Available Start: 12-18-2022 End: 12-19-2022 ambulatory Kaelyn Rodriguez Facility[facility] Start: 12-18-2022 End: 12-18-2022 Patient encounter procedure Kaelyn Rodriguez [facility] Start: 12-04-2022 End: 12-05-2022 ambulatory Kaelyn X Orzech Facility:[facility] Start: 12-04-2022 End: 12-04-2022 Patient encounter procedure Kaelyn X Orzech [facility] Start: 11-28-2022 End: 11-29-2022 ambulatory Kaelyn X Orzech Facility: [facility] Start: 07-11-2022 End: 07-12-2022 ambulatory Devin D Kelli Facility:[facility] Start: 07-11-2022 End: 07-11-2022 Lab Drop off Devin Pereira [facility] Start: 05-29-2022 End: 05-31-2022 Evaluation and management of inpatient Devin Pereira Facility:[facility] Start: 05-29-2022 End: 05-31-2022 Evaluation and management of inpatient Devin Pereira [facility] Start: 05-28-2022 End: 05-28-2022 ambulatory Devin D Kelli Facility:[facility] Start: 05-28-2022 End: 05-28-2022 OB Triage Devin Pereira [facility] Start: 05-21-2022 End: 06-24-2022 Pre-admission assessment Devin Pereira [facility] Start: 05-07-2022 End: 05-08-2022 ambulatory Devin D Kelli Facility:[facility] Start: 05-07-2022 End: 05-08-2022 ambulatory Devin D Kelli Facility:[facility] Start: 05-07-2022 End: 05-07-2022 Lab Drop off Devin Pereira [facility] Start: 02-22-2022 End: 02-23-2022 [facility] Procedures Date Procedure Procedure Detail Performing Clinician Start: 12-31-2023 URETHRITIS/DISCHARGE PLUS VAGINITIS (HTRX) Maame BARR Work Phone: Start: 12-31-2023 Urnls dip stick/tabl et rgnt non-auto w/o micrscp Maame BARR Work Phone: Start: 12-31-2023 IGP,APTIMA HPV,AGE GDLN Maame BARR Work Phone: Plan of Treatment Date Care Activity Detail Author Start: 01-27-2024 End: 01-27-2024 Patient encounter procedure 01/27/2024 9:50 AM EST Routine [facility] [address] [place] [id number] Earl Mendoza, DO [address] [place] [address] [facility] Start: 01-27-2024 End: 01-27-2024 Professional / ancillary services management 01/27/2024 9:00 AM EST Ancillary Procedure [facility] [address] [place] [id number] [facility] Start: 12-31-2023 End: 12-31-2024 Alpha fetoprotein, maternal Alpha fetoprotein, maternal Lab Routine Second trimester Expected: 12/31/2023 (Approximate), Expires: 12/31/2024 [facility] Comment on above: Expected: 12/31/2023 (Approximate), Expires: 12/31/2024 Start: 12-31-2023 End: 12-31-2024 US for US OB ANATOMY SINGLE W US OB CERVICAL LENGTH Imaging Routine Screening, , for anatomic survey Expected: 12/31/2023 (Approximate), Expires: 12/31/2024 [facility] Comment on above: Expected: 12/31/2023 (Approximate), Expires: 12/31/2024 CHLAMYDIA TRACHOMATI S (GENITO/STI) CHLAMYDIA TRACHOMATIS (GENITO/STI) Lab Routine Exposure to STD Ordered: 12/31/2023 [facility] Comment on above: Ordered: 12/31/2023 Cytology Cervical or vaginal smear or scraping study Pap Smear Pathology and Cytology Routine Well woman exam with routine gynecological exam Ordered: 12/31/2023 [facility] Comment on above: Ordered: 12/31/2023 Neisseria gonorrhoea e DNA [Presence] in Unspecified specimen by JAYDON with probe detection Neisseria gonorrhea DNA probe, direct Lab Routine Exposure to STD Ordered: 12/31/2023 [facility] Comment on above: Ordered: 12/31/2023 SURESWAB(R) ADVANCED VAGINITIS PLUS, TMA SURESWAB(R) ADVANCED VAGINITIS PLUS, TMA Pathology and Cytology Routine Vaginal discharge Ordered: 12/31/2023 [facility] [employer] Work Phone: Comment on above: Ordered: 12/31/2023 Immunizations Immunization Date Immunization Notes Care Provider Shaun [email or web address] 01-18-2013 hepatitis A vaccine, unspecified formulation [employer] [facility] 09-12-2010 meningococcal ACWY vaccine, unspecified formulation [employer] [facility] 09-12-2010 tetanus toxoid, reduced diphtheria toxoid, and acellular pertussis vaccine, adsorbed [employer] [facility] 02-23-2003 DTaP, unspecified formulation [employer] [facility] 02-23-2003 measles, mumps and rubella virus vaccine [employer] [facility] 02-23-2003 poliovirus vaccine, unspecified formulation [employer] [facility] 06-27-1999 hepatitis B vaccine, pediatric or pediatric/adolescent dosage [employer] [facility] NEGATED: Highlighted row has not occurred!11-28-2022 influenza virus vaccine, unspecified formulation [employer] [facility] NEGATED: Highlighted row has not occurred!11-28-2022 SARS-CoV-2 mRNA (panchojacinta 5y-11y) vaccine Kaelyn Rodriguez [facility] Payers Date Payer Category Payer Private Health Insurance [facility] [id number] 2022-Present [address] [address] [place] [address] [id number] 2022 Private Health Insurance [id number] 2020 Private Health Insurance [id number] 1997 Unknown [id number] 2.16.840.1.543459.3.579. 2.727 1997 Unknown [id number] 2.16.840.1.693908.3.579. 2.727 1997 Unknown [id number] 2.16.840.1.879757.3.579. 2.727 1997 Unknown [id number] 2.16.840.1.047574.3.579. 2.727 1997 Unknown [id number] 2.16.840.1.379634.3.579. 2.727 1997 Unknown [id number] 2.16.840.1.804513.3.579. 2.727 1997 Unknown [id number] 2.16.840.1.178604.3.579. 2.727 1997 Unknown [id number] 2.16.840.1.486866.3.579. 2.727 1997 Unknown [id number] 2.16.840.1.656106.3.579. 2.727 1997 Unknown [id number] 2.16.840.1.307004.3.579. 2.1259 1997 Unknown [id number] 2.16.840.1.603441.3.579. 2.1259 1997 Unknown [id number] 2.16.840.1.300093.3.579. 2.1259 1997 Unknown [id number] 2.16.840.1.577924.3.579. 2.1259 1997 Unknown [id number] 2.16.840.1.518487.3.579. 2.9 1997 Unknown [id number] 2.16.840.1.591220.3.579. 2.1259 1997 Unknown [id number] 2.16.840.1.767654.3.579. 2.1259 1997 Unknown [id number] 2.16.840.1.908464.3.579. 2.9 Social History Date Type Detail Facility Tobacco smoking status No Smoking Status Entered [facility] Start: 12-02-2023 Sex Assigned At Female F [facility] Start: 11-28-2022 End: 12-02-2023 Tobacco smoking status Never smoked tobacco (finding) [facility] Tobacco smoking status Never [facility] Start: 12-31-2023 Alcohol intake Current drinke r of alcohol (finding) [facility] Start: 12-02-2023 History of Social function [facility] Start: 12-02-2023 Alcohol Comment caffeine: coff ee in the am [facility] Start: 09-17-2023 [facility] Start: 1995 Sex Assigned At Female [facility] Start: 10-02-2023 Gender identity Identifies as female gender (finding) [facility] Functional Status Date Assessment Result Facility 05-29-2022 Functional Status No [facility] 05-28-2022 Functional Status N/A [facility] Clinical Notes 05-07-2022 to 12-31-2023 CORTNEY Ospina [...] which includes the following prescription(s): cholecalciferol and [id number]. Medical History: Active Ambulatory Problems Diagnosis Date [...] nursing note reviewed. Exam conducted with a road builder present. Vitals: Estimated body mass index is [...] obtained without difficulty and patient was given [facility] order to have obtained. Follow Up: Patient is to return to our office in 4 weeks for routine OB appointment Documented by Ada Hollis LPN on behalf of: CORTNEY Ospina documented in this encounter [facility] 06-04-2022 Note DATE OF DISCHARGE: 0 [...] complication. Devin Pereira M.D. eran Dictated: 06/03/2022 [id number] Transcribed: 06/03/2022 [facility] Comment on above: Result Comment: Elec tronically Signed By: Devin Pereira MD\.br\Date and Time Signed: 06/04/22 08:08 EDT 05-31-2022 Note The following Patien t Education Materials have been given to the patient: [facility] Note HOSPITAL REGULATIONS : All [...] for details. Devin Pereira M.D. Dictated: 05/31/2022 [id number] Transcribed: 05/31/2022 [facility] Comment on above: Result Comment: Elec tronically Signed By: Kelli DEMPSEY, Devin Collier\.br\Date and Time Signed: 05/31/22 09:16 EDT 05-30-2022 Evaluation + Plan note Extrac noy from: Title:Post-LDE Author:Jose Miguel Garcia Jr., DO ate:05/30/22 Plan Transfer/ Discharge: Condition stable. Extracted from: Title:L&D Epidural note Author:Omaira Garcia Jr., DO Date:05/29/22 Impression and Plan Plan Labor epidural at request of patient.. [facility]07-06-2022 Hospital Discharge instructions Follow Up Care 05/29/2022 07:05:03 With:Dr. Pereira [phone] Address:Unknown When:6 weeks Comments:Call for any problems. [facility] fever>100.5 F, heavy bleeding With: Services [phone] Address:Unknown When:06/03/2022 14:00:00 [facility]07-05-2022 NoteThe following Patient Education Materials have been given to the patient: [facility] Hospital Discharge instructions Follow Up Care 05/28/2022 08:38:04 With:Devin Pereira Address: [address] [place] [address] [place], [address] [address]- Business (1) When:05/29/2022 17:00:00 Comments:Call for any problems.Return for contractions closer, longer, and harder.Return for decreased fetalmovement.Return if ruptured membranes or vaginal bleeding. [facility]06-14-2022 Evaluation + Plan note Diagnostic Tests Pending * Group B Streptococcus colonization by PCR [facility]07[facility] Future Scheduled Tests Radiology* US Abdomen, Limited [facility]18/22 [facility] Diagnosis Second trimester state, incidental Screening, , for anatomic survey Encounter for anatomic survey Well woman exam with routine gynecological exam Routine gynecological examination Exposure to STD Vaginal discharge Leukorrhea, not specified as infective documented [facility] N[facility]ative No data available for this section [facility] No data available for this section [facility] No data available for this section [facility] Summary Purpose Family History No Family History Records FoundNo Family History Records Found Advance Directives No Advanced Directives Records FoundNo Advanced Directives Records Found Additional Source Comments Care Team (unrecognized sect ion and content) 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 [facility] [employer] [facility]. provides no warranty or guarantee of the accuracy or completeness of information in this document.
== END 2024-05-12 19:47 | disposition home or self-care (01) ==
LOC: LAB 19:46
PROVIDERS: PCP Family Medicine; Visit Provider Obstetrics & Gynecology
DX: Z34.93 Encounter for supervision of normal pregnancy, unspecified, third trimester (principal)
CPT/HCPCS: 87081

== ENCOUNTER 2024-05-26 09:55 | Outpatient (OUT) | payer OTHER, SELFPAY ==
--- NOTE | 2024-05-26 09:57 | US_ITS ---
[address] [address] Patient Name: ADONAY GENAO MRN: [id number] date: 1995 Sex: F Assigned Patient Location: [facility] Current Patient Location: [facility] Accession/Order Number: [id number] Exam Date: 05/26/2024 09:57 Report Date: 05/26/2024 12:20 At the request of: EARL NDIAYE Procedure: US OB growth EXAMINATION: US OB growth HISTORY: SMALL FOR GESTATIONAL AGE COMPARISON: Ultrasound OB growth 03/02/2024 FINDINGS: Heart Rate: 148 bpm Amniotic Fluid Volume: 10.2 cm Number: 1 Position: CEPHALIC BIOMETRY: BPD: 8.52 cm cm; 240 Day; 3 %% HC: 31.18 cm cm; 244 Day; 3 %% AC: 32.43 cm cm; 254 Day; 21.90 %% FL: 7.24 cm cm; ; 28.90 %% EFW: 2665.63 g; 17.90 % FL/AC: 22.33 FL/BPD: 84.98 HC/AC: 0.96 GESTATIONAL AGE: Age by EDC: 38 weeks 0 days RICH by EDC: 2024-06-09 Age by US: 35 weeks 4 days RICH by US: 2024-06-26 US/US OB growth IMPRESSION: 1. Single live intrauterine with growth detailed above. 2. Biparietal diameter and head circumference both fall below the 3rd percentile. Electronically authenticated by: YUNG HENRY Date: 05/26/2024 12:20
== END 2024-05-26 09:56 | disposition home or self-care (01) ==
LOC: NOMS 09:55
PROVIDERS: PCP Family Medicine; Visit Provider Obstetrics & Gynecology
DX: O26.843 Uterine size-date discrepancy, third trimester (principal); Z3A.35 35 weeks gestation of pregnancy
CPT/HCPCS: 76816

== ENCOUNTER 2024-06-03 07:38 | Outpatient (OUT) | payer OTHER, SELFPAY ==
--- NOTE | 2024-06-03 14:04 | US_ITS ---
The [address] [address] Patient Name: ADONAY GENAO MRN: [id number] date: 1995 Sex: F Assigned Patient Location: [facility] Current Patient Location: [facility] Accession/Order Number: [id number] Exam Date: 06/03/2024 14:08 Report Date: 06/03/2024 15:22 At the request of: EARL NDIAYE Procedure: US OB growth EXAMINATION: US OB growth HISTORY: SMALL FOR GESTATIONAL AGE P05.10 COMPARISON: No relevant comparison available. FINDINGS: Heart Rate: 161.68 bpm Amniotic Fluid Volume: 2.0 cm, largest fluid pocket 3.8 cm Placenta: Posterior Number: 1 Position: Cephalic presentation, longitudinal lie BIOMETRY: BPD: 8.79 cm cm; 35 weeks 4 days; 4.20 %% HC: 31.29 cm cm; 35 weeks 0 days; 3 %% AC: 32.22 cm cm; 36 weeks 1 day; 4.90 %% FL: 7.05 cm cm; 36 weeks 1 day; 3.30 %% EFW: 2808.14 g; 6.80 %, 6 lbs. 3 oz. FL/AC: 21.87 FL/BPD: 80.13 HC/AC: 0.97 GESTATIONAL AGE: Age by EDC: 39 weeks 1 day RICH by EDC: 2024-06-09 Age by US: 35 weeks 5 days RICH by US: 2024-07-03 US/US OB growth IMPRESSION: Intrauterine growth retardation with reduction in estimated weight from 17.9% on the prior exam to 6.8% on the current exam and measurements all below the 5th percentile. Electronically authenticated by: MALIKA WILKINS Date: 06/03/2024 15:22
--- NOTE | 2024-06-03 14:04 | US_ITS ---
[address] [address] Patient Name: ADONAY GENAO MRN: [id number] date: 1995 Sex: F Assigned Patient Location: [facility] Current Patient Location: [facility] Accession/Order Number: [id number] Exam Date: 06/03/2024 14:08 Report Date: 06/03/2024 15:18 At the request of: EARL NDIAYE Procedure: US OB BPP w non-stress EXAMINATION: US OB BPP w non-stress HISTORY: SMALL FOR GESTATIONAL AGE P05.10 COMPARISON: No relevant comparison available. TECHNIQUE: Ultrasound biophysical profile was performed in the radiology department. non-reactive stress testing was performed by nursing staff in the birthing center. FINDINGS: BREATHING MOVEMENTS: 2 GROSS BODY MOVEMENTS: 2 TONE: 2 QUALITATIVE AMNIOTIC FLUID VOLUME: 2 PRESENTATION: CEPHALIC HEART RATE: 161.68 bpm AMNIOTIC FLUID VOLUME: 10.0 GESTATIONAL AGE: 39 weeks 1 day US/US OB BPP w non-stress IMPRESSION: Total biophysical profile score: 8 Electronically authenticated by: MALIKA WILKINS Date: 06/03/2024 15:18
[2024-06-03 14:46] VITALS: BP 107/69; PULSE 87
== END 2024-06-03 15:50 | disposition home or self-care (01) ==
LOC: US 07:42 → FBC 14:02
PROVIDERS: PCP Family Medicine; Visit Provider Obstetrics & Gynecology
DX: O36.5930 Maternal care for other known or suspected poor fetal growth, third trimester, not applicable or unspecified (principal); Z3A.39 39 weeks gestation of pregnancy
CPT/HCPCS: 76816; 76818

== ENCOUNTER 2024-06-03 16:10 | Inpatient (IN) | payer OTHER, SELFPAY ==
[2024-06-03] VITALS (11 sets, daily range): BP systolic 109–135; BP diastolic 63–83; PULSE 69–108; TEMP 36.4–37
[2024-06-03] MEDS: 0.9 % SODIUM CHLORIDE 1,000 ML 125 ML IV (17:45)
[2024-06-03] MEDS: OXYTOCIN/0.9 % SODIUM CHLORIDE 10 UNITS/500 ML PLAST..BAG 6 UNIT IV (17:45)
--- NOTE | 2024-06-03 18:01 | PC.NURSE ---
1557- Dr. Mendoza calls in to unit after reviewing patients growth US results. Dr. Mendoza orders for RN to call patient back to be admitted as observation patient and to complete SVE on admission and call back for further orders. Orders read back and verified.
[2024-06-03 18:06] LABS: Hematocrit 36.4 % (36.0-48.0); Mean Corpuscular Hemoglobin 28.1 pg (26.7-34.0); Mean Corpuscular Volume 85.2 fL (81.0-99.0); Mean Platelet Volume 10.8 fL (9.5-13.5); Platelet Count 304 10^3/uL (150-450); Red Blood Count 4.27 10^6/uL (4.20-5.40); White Blood Count 11.5 10^3/uL (4.0-11.0)
[2024-06-03 18:17] LABS: Amphetamine Screen Urine NEGATIVE (NEGATIVE); Barbiturates Screen Urine NEGATIVE (NEGATIVE); Benzodiazepines Screen Urine NEGATIVE (NEGATIVE); Buprenorphine Screen Urine NEGATIVE (NEGATIVE); Cannabinoid Screen Urine NEGATIVE (NEGATIVE); Cocaine Screen Urine NEGATIVE (NEGATIVE); Methadone Screen Urine NEGATIVE (NEGATIVE); Methamphetamines Screen Urine NEGATIVE (NEGATIVE); Opiate Screen Urine NEGATIVE (NEGATIVE); Oxycodone Screen Urine NEGATIVE (NEGATIVE); Phencyclidine Screen Urine NEGATIVE (NEGATIVE); Tricyclic Antidepressant Urine NEGATIVE (NEGATIVE)
[2024-06-04] VITALS (45 sets, daily range): BP systolic 91–213; BP diastolic 50–144; PULSE 65–100; TEMP 36.6–36.9
[2024-06-04] MEDS: 0.9 % SODIUM CHLORIDE 1,000 ML 125 ML IV (01:15)
[2024-06-04] MEDS: 0.9 % SODIUM CHLORIDE 1,000 ML 1000 ML IV (04:08)
[2024-06-04] MEDS: ROPIVACAINE HCL/PF 400 MG/200 ML PREMIX 6 MG EPIDURAL (04:27)
[2024-06-04] MEDS: OXYTOCIN/0.9 % SODIUM CHLORIDE 10 UNITS/500 ML PLAST..BAG 54 UNIT IV (06:26)
[2024-06-04] MEDS: 0.9 % SODIUM CHLORIDE 1,000 ML 999 ML IV (08:20)
--- NOTE | 2024-06-04 09:42 | PM.OBPRCVD ---
Procedure Intrapartal events: None Induction method: per pitocin protocol Delivery augmentation: rupture of membranes and pitocin Delivery monitor: external FHT and external uterine Route of delivery: Episiotomy Description: none L&D Laceration Description: none Estimated blood loss (mL): 200 Anesthesia type: Epidural Disposition: floor Delivery date: 06/04/24 Gender: female presentation: vertex Placental delivery description: Spontaneous cord description: 3 Vessels
[2024-06-04] MEDS: OXYTOCIN/0.9 % SODIUM CHLORIDE 20 UNITS/1,000 ML PLAST..BAG 125 UNIT IV (10:13)
--- NOTE | 2024-06-04 12:27 | PC.NURSE ---
1100 epidural catheter removed to black tip, pt tolerates well
[2024-06-05 00:44] VITALS: BP 129/72; PULSE 64; TEMP 36.1
[2024-06-05 06:28] LABS: Basophils Percent Auto 0.3 % (0.2-2.0); Eosinophils Absolute Auto 0.1 10^3/uL (0.0-0.7); Hematocrit 31.9 % (36.0-48.0); Hemoglobin 10.4 g/dL (12.0-16.0); Immature Granulocytes Abs Auto 0.06 10^3/uL (0.00-0.03); Immature Granulocytes Pct Auto 0.5 % (0.0-0.5); Lymphocytes Absolute Auto 2.4 10^3/uL (1.2-3.8); Lymphocytes Percent Auto 20.8 % (20.5-60.0); Mean Corpuscular HGB Conc 32.6 g/dL (29.9-35.2); Mean Corpuscular Volume 85.8 fL (81.0-99.0); Monocytes Percent Auto 8.3 % (1.7-12.0); Neutrophils Absolute Auto 7.9 10^3/uL (1.4-6.5); Neutrophils Percent Auto 69.1 % (43.0-75.0); Platelet Count 248 10^3/uL (150-450); Red Blood Count 3.72 10^6/uL (4.20-5.40); Red Cell Distribution Width 13.1 % (11.0-15.0); White Blood Count 11.5 10^3/uL (4.0-11.0)
[2024-06-05 08:02] VITALS: BP 113/77; PULSE 69
[2024-06-05 08:27] VITALS: BP 113/77; TEMP 36.6
--- NOTE | 2024-06-05 09:26 | PM.OBPN ---
OB - PN: Subj Subjective Patient comments: no complaints and pain well controlled [place] status: doing well Exam Constitutional Vital Signs, click to edit/add: Last Vital Signs Temp 97.9 F 06/05/24 08:27 Pulse 69 06/05/24 08:02 Resp 18 06/05/24 08:27 BP 113/77 06/05/24 08:27 O2 Del Method Room Air 06/05/24 08:27 Documenting provider has reviewed patient's vital signs: yes Common normals: no apparent distress Respiratory Common normals: normal respiratory effort and clear to auscultation bilaterally Cardio Common normals: regular rate and regular rhythm GI Common normals: Normal to inspection, nondistended, normoactive bowel sounds present Extremity Common normals: no calf tenderness Results Labs Labs: Short CBC 06/05/24 Range/Units 06:15 WBC 11.5 H (4.0-11.0) 10^3/uL Hgb 10.4 L (12.0-16.0) g/dL Hct 31.9 L (36.0-48.0) % Plt Count 248 (150-450) 10^3/uL Urinary Catheter Management Urinary Catheter Management Urethral: Cath placed during this visit: yes Urethral indwelling: No Insertion date: 06/04/24 Insertion time: 04:55 OB - PN: A/P Plan - Vaginal Delivery day: 1 Plan: routine care Time Spent with Patient Time: Total time spent is greater than 50% in coordination of care (as documented) at patient's floor/unit and/or counseling patient: Total time spent with greater than 50% in coordination of care (as documented) at patient's floor/unit and/or counseling patient: less than 15 minutes
== END 2024-06-05 15:40 | disposition home or self-care (01) | DRG 807 ==
PROVIDERS: Admitting Provider Obstetrics & Gynecology; PCP Family Medicine; Visit Provider Obstetrics & Gynecology
DX: O80 Encounter for full-term uncomplicated delivery (principal); Z37.0 Single live birth; Z3A.39 39 weeks gestation of pregnancy
CPT/HCPCS: 36415; 51702; 59050; 59410; 80307; 85025; 85027; 86850; 86900; 86901; 96365; 96366; 96376; J2795

== ENCOUNTER 2025-01-05 19:18 | Outpatient (REF) | payer OTHER, SELFPAY ==
--- OUTSIDE RECORDS SUMMARY | 2025-01-05 19:22 | XMS_ITS | CCD ---
Author Organization [facility] CliniSymd Care Team Providers Care Software Writer Name Role Phone María, Shanna Castano Primary Care Physician [phone] Carlie Leon Unavailable Unavailable Corbin Henley Primary Care Physician [phone] Devin Pereira Admitting Unavailable Kelli, Devin Collier [...] Unavailable Link Corbin DEMPSEY Primary Care Provider REJI, EARL Attending Unavailable BITA, MAAME Attending Unavailable REJI, EARL Attending Unavailable BITA, MAAME Attending Unavailable REJI, EARL Attending Unavailable BITA, MAAME Attending Unavailable BITA, MAAME Attending Unavailable REJI, EARL Attending Unavailable REJI, EARL Attending Unavailable REJI, EARL Attending Unavailable REJI, EARL Attending Unavailable REJI, EARL Attending Unavailable Medications Current Medications Medication Drug Class(es) Dates Sig (Normalized) Sig (Original) cholecalciferol 0.05 mg oral capsule (6 sources) Vitamin D take 1 capsule by mouth in the morning cholecalciferol (Vitamin D-3) 50 MCG (1999) capsule Take 2,000 Units by mouth in the morning. Active cimetidine 200 mg oral tablet (6 [...] # 15 tab(s), Refills(s) 0, Pharmacy: [facility], 154.9, cm, 05/29/22 7:54:00 EDT, Height/Length Dosing, 84.5, kg, 05/29/22 7:54:00 EDT, Weight Dosing Start Date: 05/31/22 Status: Ordered Xgrqfekc-Cow-Zq-FA ( 1 + IRON PO) (6 sources) Apbxarip-Zfn-Me-FA ( 1 + IRON PO) Take by mouth Active Multivi t-Min-Fe-FA ( 1 + IRON PO) Take by mouth 0 Active Multivitamins with Vitamin B Complex, Vitamin C, Minerals and L-Methylfolate oral capsule (6 sources) Start: 05-28-2022 Multi vitamins with Vitamin B Complex, Vitamin C, Minerals [...] day, # 14 tab(s), Refills(s) 0, Pharmacy: [facility], 155, cm, 04/25/20 17:23:00 EDT, Height/Length Measured, 56, kg, 04/25/20 17:23:00 EDT, Weight Measured Start Date: 04/25/20 Status: Ordered Problems Active Problems Problem Classification Problem Date Documented Da te Episodic/Chronic Anxiety disorders (5 sources) Anxiety 05-29-2022 [...] noninflammatory disorders of vagina] 12-31-2023 Episodic Other screening for suspected conditions (not mental disorders or infectious disease) (1 source) Patient encounter status; Translations: [Encounter for other specified screening] 12-31-2023 Episodic Past or Other Problems Problem Classification Problem Date Documented Date Episodic/Chronic Fetopelvic disproportion; obstruction (2 sources) Obstructed labor due to shoulder dystocia; Translations: [Obstructed labor due to shoulder dystocia] Onset: 05-29-2022 Episodic Other and delivery including normal (4 sources) Delivery normal; Translations: [Encounter for full-term uncomplicated delivery] Onset: 05-31-2022 Episodic Unclassified (7 sources) Onset: 08-25-2021 Resolved: 05-30-2022 02-26-2022 Results Test Name Value Interpretation Reference Range Facility IGP,APTIMA HPV,AGE GDLNon AGE GDLN ACOG TESTING Note . [facility] Comment on above: TESTS RESULT FLAG UN ITS REF RANGE LAB Clinician Provided Cytology Information Source.............[employer] Other.............. No. of containers..01 ThinPrep Vial Age Algo ACOG Hodan... 21-29 01 FLAG LEGEND: L-Low Normal,H-High Normal,LL-Alert Low,HH-Alert High <-Panic Low,>-Panic High,A-Abnormal,AA-Critical Abnormal Performed at: 01 =G [facility] [address] [place] [address] Terri Cantu MD, IGP, RFX APTIMA HPV ASCU Note . [facility] Comment on above: TESTS RESULT FLAG UN ITS REF RANGE LAB DIAGNOSIS: 02 NEGATIVE FOR INTRAEPITHELIAL LESION OR MALIGNANCY. Specimen adequacy: 02 Satisfactory for evaluation. No endocervical component is identified. An endocervical component is not commonly seen in the patient. Performed by: Марина Stacy, Director Corporate Communications ([facility]) . 02 Note: Note 02 The [...] <-Panic Low,>-Panic High,A-Abnormal,AA-Critical Abnormal Performed at: [address] [address] Terri Cantu MD, Performed at: =[facility] [id number] Geek Squad Manager: Terri Cantu MD, Phone: [phone] Performed at: [address] [id number] Geek Squad Manager: Terri Cantu MD, Phone: [phone] [facility] URETHRITIS/DISCHARGE PLUS VA GINITIS (HTRX)on 01-02-2024 ATOPOBIUM VAGINAE 0 [facility] ATOPOBIUM VAGINAE Not detected [facility] BVAB 2,3 (BACTERIAL VAGINOSIS ASSOCIATED BACTERIA 2, 3); MOBILUNCUS SPP 0 [facility] BVAB 2,3 (BACTERIAL VAGINOSIS ASSOCIATED BACTERIA 2, 3); MOBILUNCUS SPP Not detected [facility] BASSEM ALBICANS, PARAPSILOSIS, TROPICALIS 0 [facility] BASSEM ALBICANS, PARAPSILOSIS, TROPICALIS Not detected [facility] BASSEM GLABRATA 0 [facility] BASSEM GLABRATA Not detected [facility] BASSEM KRUSEI 0 [facility] BASSEM KRUSEI Not detected [facility] CHLAMYDIA TRACHOMATIS 0 [facility] CHLAMYDIA TRACHOMATIS Not detected [facility] GARDNERELLA VAGINALIS 0 [facility] GARDNERELLA VAGINALIS Not detected [facility] MEGASPHAERA (TYPES 1, 2) 0 [facility] MEGASPHAERA (TYPES 1, 2) Not detected [facility] MYCOPLASMA GENITALIUM 0 [facility] MYCOPLASMA GENITALIUM Not detected [facility] NEISSERIA GONORRHOEAE 0 [facility] NEISSERIA GONORRHOEAE Not detected [facility] TRICHOMONAS VAGINALIS 0 [facility] TRICHOMONAS VAGINALIS Not detected [facility] Urinalysis macro (dipstick) panel (U)on 12-31-2023 Bilirubin, UA Positive Negative - 4(70) +++ mg/dL [facility] Comment on above: small Blood, UA Positive Negative - 50 Luis/mcL [facility] Comment on above: trace-intact Clarity, UA Clear [facility] Color, UA Yellow [facility] Glucose, UA Negative Negative - 1999(110) ++++ mg/dL [facility] Interpretation and review of laboratory results Abnormal [facility] Ketones, UA Positive Negative - 160(16) ++++ mg/dL [facility] Comment on above: trace Leukocytes, UA Negative Negative - 500+++ Kahlil/mcL [facility] Nitrite, UA Negative Negative - Positive [facility] pH, UA 6.0 5 - 9 [facility] Protein, UA Positive Negative - 1999(20) ++++ mg/dL [facility] Comment on above: 100 Spec Grav, UA 1.030 1 - 1.03 [facility] Urobilinogen, UA 1.0 0.2 - 12 mg/dL [facility] Coding Summary.on 12-24-2022 Coding Summary. [id number] Gh0bWw+PGhlYWQ+PE1FV DIlX00hhHVvbN8HC8fOC X1XXQOMUBMVRP1GMB0ya WM8PHweP0RenqEq KwtfvCZsQN23YTu0STV9 aQtqOSpykE2peMJnH4w6 ZmXxGK04lI79RLhkACCb MuY5YcObbvtolPTw J9agJqQohWRxPpx+PHRh YmxlIHdpZHRoPScxMDAl AsKlfBxxBD2lDe3yPAJo LWNvbGxhcHNlOiBj e4hcCWUnLLwfZW6zdDgq S6YrlAK5CTWsx3y3Yf31 dHI+KSBrKFO4fFouZMvs e925XkFed7zfUKO4 aXTbCIzsIZM5P05ef1M5 TDMcDBGwRCC3bPZ0uD8l lOoiyqlxO7SrgGQmCaE4 ISC9hQWmeQ8bhQvm bvhqmS6cHot+X50LEK4H SBCRGS1QFki6E8FjCyco dHI+IS27GFUkUG50rEVs gOAsf4qprZj8CeUl WGKaALK6kTomZTbsb8Ef PMArV53hvUWfc2N5MTFt tPokcWAwBbVhjPA9yL8o HSkmdmhxr1babzfr Plxub7bpxc55wB68Z75v SDztMVTpUKP0JLYwBCFa uOonpm1bbD5mOy0+IDxj g9hja5xenWk4JmTp NRQrihUmpRalQQV6r6Yc Au60O0YkdMwub3FiKtb2 dc76uOMcz1B0nKN7CGnl UWBqbF4iRKqbAkB1 BOZqSzIihV75xNByXKkg Xt6ynVehnGbsWX2sKGHb cstbOPYthX6xNKAkqSFl bZyqNJ3cPXEehdsw f893NsAdXJA0CAIemEMr W0CwgQ1jUdTnFIAtVYIv W6BlhTSmVUexK749CUxa XuK4KEKoxcBzF4Rr SAGmjSomYaP8r3Z2Lh1H v8ByxzsjDWX5ZYeiYWNm NdFpKqWuVtH9S1UxWve9 BOHzaMzqOI2yG6Sv MIMikflclhhgbGM2ZXEr AOKojU21nLRqXPpuAk9w h9U9q522VJDtJJNkdV13 Qh5xrDljWQSplYHO rD2hkfgck8blgebaXnCa RIIxODp0CHn5BGMquLxr ZeBzJGE4CyJ1DDF7zRCd qF5kyUdypueneL1t Oyc+N15rxZ4iYTC5HCI9 jfjpXYGkxxLfUS26VL69 C5SvAetcbGVqbOL+PGRp jzKplKuvLH4iFtSo p2zyk8MwDJcbR9NoOMHo WEbkUky9VLQxGDI5cAI1 xO5uFTXnXFezd9X0dRC8 Z5RmesBfhe5xc5nh KTQuVUflC03izHZrm2Y5 ZFHfwWV4RIJtqHpwLvSq gG31Atj+BWRfjQgoe9Gy Waora8nez9mbbJc4 IjMwJSIgdmFsaWduPSJ0 q2AyRe05S16bOIzaJSIj JOSgVBMsDZBbrSkkoh1v rL0hBd4+PGNvbCB3 xYT8dN0dRRXwZfW3RBno J306HaEjmWZqGmnmq3cb s6dfnPf4DoNaCUHmryMe dExaFLL6k4IfRs62 A64wQKoxGBEkAKRdTNZb TYVvqZzdps7tuJ7lUm5+ FT4nk3plyo42eD32mTQ+ UFVoUZF6zByoTBsy IMGdmC6aHTpbDoL2JHCx MvSajE63jNEkYQqgMv7y oBtemQjdXS4aYYHoiyyw z654LsOhk7coWUUl uSMxRLssVQM0K76lo0V0 BEFvOXMnVUT2cFT4bJ1f bGlnbjogbGVmdDsgdmVy dGphXLjjBIpjP684 IHRvcDsnPlBhdGllbnQg SzBvTKm4K0TdOfz4SDGt ePoaBA7mqIDqPXhkAa0f oLxdaSasRN8pYDTl byrzi287BbOly3rkGJQr rWLsHLaqINM0G29ra2C5 OQUyKWJuFYC5cKQ7vF5h bGlnbjogbGVmdDsg puKohSrdWHskKOxgP245 IHRvcDsnPkJpcnRoIERh wJV3VK95IR94eNMza8A0 zSO4F4CvMCHvzcnv juovcBV3DVCgMDTkgY47 Zr6jmGgpRz7wCAIoCVM3 DTKbdRWrM1DhnC8tScGs XMBqRBKcU5KpjSGp YArxM499HMbxElK9PRQt vlJlL8EtJIHszBgoIaB6 f5L6Vs3LT3W1QE26KH00 xTNer7A7tUL3R5Bs CSPwsswagtzqgST7DOWc NTGtlC12Yh3qhApyNk8v UXFiPER5IZJkzXGaB0Lg mS2kYyJpDJIbGYQl I4VgnRIhJAlzX580PRmf WpI5RWVbozYrF5CiZEZz iRmoPvV5h6K0Ot9KVWx5 SQ34OB85tWRdd5V1 hCR8P4XoHTQrptyganwd gPV4TQPoILEgrP14Ks4x jSjwLn2kIGVjNLW0EMMi lMBzS7QhbV9pAoVj NVPcKSXfN6FhvNCsUIxk H670HGpvDrT1IFQmbdXn B0XgAXOdiTxfTqF0x2Y4 Ae8ATOGgGC15MCQ8 vVX3EG67FE85C2XwOkcy dGFibGU+PHRhYmxlIHdp ZHRoPScxMDAlJyBzdHls AP5mGq8mESUyMEDa mIxyeEGtHzFdj4qeJWKm KBcrAQ0jxIdoL6DlgZT8 VEItg3x4Hg47I16mN0Vk dXA+FAVjiAJ4tTH7 qP3sYpItYkI3VAhgK867 AiSsjDCgAiser0tkp4jf gWe0PdM8ZCKidaKpmVih LDQ4j2YnLe66P25o IHdpZHRoPSIxNSUiIHZh xEzovh1hoE2sJz4+PGNv oYK3wBO5wW4fKyDdTvI1 NVkjT091YgSpdLJy Ybioo7zuj8xykKl7CnMg IYHebaJlbTilDFF5w9Ro Kb59X6ZzyImsy2PoDss2 vb45qWWwi6L8mJA5 X4JpTUQtddgptXDzaXyb TL0sFCKmscgmWZTayM9c RKTpY1d4UkXcTlF1LXwn S5ZxcpR3HUZajUCh NFdnYRX1F36pj1K1VAFp BBNgZJD9yAK0uJ4fvVtx bjogbGVmdDsgdmVydGlj EXxfXJihY315XYAr wZflMJBpnF8aOIKryOYb hPsgFI5aQXQazpgaDzTA Fl2DGcjtG4JNVFCGQFSa TTwvdGQ+PHRkIHN0 fIsySDmnFCPqeQ2nITQn K8z9SbGyMdH1ABnsV6Wf KBXsessfPo88cV9fMpDz SfG3BYfaB4DfwnP1 DRFsuRYzZHacNNF8L35b g3R7KCPgULLwYLG0xEH8 rL4seRvrruuqxVUdeCmb dmVydGljYWwtYWxp V146WJJmuMvzMlKgXwX4 JtG6ZAe0I0MrZzn8DGNl qLtoZS2fiVNdPEqaVp6z uGwhpUprTA2ePOQk lbszAVOhjO6bMAIdtIUx cBbiSQ3lUHOrnabuw865 PqOnEJQ5PKImgJPuJ2Da nO4jAyCuWIVlFERh O6UpuYPhCKzwW324XUct EcA0VEOznrXbE3ExUUJu jFnbRhW6m9D2Aj4kYKTK ZWFyczwvdGQ+PHRk LWL1uKzvFCltIUOtpE2p VZTgU2c5UrDjDmD8KJlc Z1ZoMAJpvaisLj44yQ0f VhEsPfK5UIjkP1Bl yhQ5PCKeiJHePKfbIBX9 L93fn8L4BSWbZORqVNI9 mCM5pM5gwEwkarftfCSn dDsgdmVydGljYWwt ZVyhL302MMIrkLxiJvFz bWFsZTwvdGQ+PHRkIHN0 xGmhIKpsRMMenC8zBUQz X6q1QbYmRqW1GDpq I4QcHXGtfpveQz92tP3o RyFzQeP6SBjgK2NfbaW4 QDOgeJApORqmKYH4K81z s5B8OWOyBZMgNSI4 xLK6uC7wzDtoaebgcLJv dDsgdmVydGljYWwtYWxp D427XGNaiUzlVj40wJAq tMxbilM6T1OaAnub dHI+MH14WJAsWW74fEFq cJRdf7pyrKo3YsQbZJRf PSD9xVckPErlq1OvRSOc K07abSBht0E5HHRt oQqzqTUwDqZgiYZ8xN5j MZtrvoumq1ycvfbrEjfm w5dcdm41qU64A69fMLgx ZHRoPSIzMCUiIHZh uJfvha4rzP6nKd5+PGNv uAK6sPN5nC9qGwTpXdS5 MJizK956DwZirASsJvyd u1var2xnzQh1UaLh PZTdumVtfQadLFJ1z6Jb Ma82K94oENkaIPLnPQNc SDNkCMZmuVcczs5njA4l Ii8+FH0ia8naad30 dQ58mHJ+BSSyPXY6eCzu NCnkIRAlaF3xVYazMcF3 HCUdRhGopP72yYNcOSwx Fy9tmOnpeQgqDR0n OJCkwqktg889BnFgh4mz YJZroULrBHvvRCJ1Y17w o1L8EZKxYADyGWB3bDL4 tH2eoMstqtwtqBWx dDsgdmVydGljYWwtYWxp C406WCVjsQhiKqPzfLGh X4lakrSURZ7gOxhicKA+ LAXjHLU8rCrtPToh FERjqF9aOVWsX8y7XlCr SxI9XYekZ0XwscV5YNVj tUGwAFYnfRIAbB2vlyvo j0ogidnaJhKoJHXr FNu3GQr0VFRrhTwiJmTe LPK1LmB7BRY2yXPmlV3u tTygrtgxiJ1kHqt+RklO OjwvdGQ+PHRkIHN0 rUryUEqlRNSiiZ3xTIUg R4g6IwElGvU2LCuyW5Ck kaR6PSYetKAoLEHnqUFK pS6slhmnq4fexjeh GzKfNBIbVEl7NFh3WXBt cGrkTjFnDJU1ArN1EST4 mPHooG6fzAyazpwetE1d Oyc+TVJOOjwvdGQ+ XDMhJCM2oSigSLubHGUr fQ6mVYWxK1n7XsVtUvG3 TKmrQ4BwesI7YRWgeCPq NOVfqNEGuP2oapop u0nglqayZuSjENIrPAz1 QLs2BPQpjNhbQeNkWHM8 ApP0CGR9fOWtfF8lfNyr elwqmZ2lDpy+UGF5 LCE0PR08SC82H2SzCahc dGFibGU+PHRhYmxlIHdp ZHRoPScxMDAlJyBzdHls WD9iEq7eQBQqLEHo bGxh (more content not included)... Normal [facility] Consent for Treatmenton 11-25 Consent for Treatment [id number] 30 [id number] Normal [facility] US Abdomen, Limitedon 2022 US Abdomen, Limited [...] Meier MD Transcribed by: STEPHANIE Technologist: HW Normal [facility] Consent for Treatmenton 11-24 Consent for Treatment [id number] 30 [id number] Normal [facility] Family Medicine Office/Clini c Noteon 11-29-2022 Family [...] With When Contact Information Shanna Daniel DO, VICTORIANO [address], [facility] [address] [place] [address]- Additional Instructions: Patient Education Cholecystitis BMI for [...] Alcohol Use, 04/25/2020 Employment/School Employed, Work/School description: [employer]. Highest education level: University degree(s)., 05/29/2022 Home/Environment [...] care after the procedure. Medicines ? Take zlyy-hkm-rzvuieh and prescription medicines only as told by [...] 11/10/2006 Document Revised: 03/19/2019 Document Reviewed: 03/19/2019 [employer] Patient Education ? 2020 [employer] Nutrition BMI for Adults Body mass index (BMI) is a number that is calculated from a person's weight and height. BMI may help to estimate how (more content not included)... Normal [facility] Coding Summary.on 07-17-2022 Coding Summary. [id number] Gh0bWw+PGhlYWQ+PE1FV DTgC65fqMUfhI3GT1wQM I6WYFNMZTETNX2VSM0bi QP0VXzeF6OlduFf NfjneCRbOS00NEl1UFO1 lWkwVCphcP7peBSsT3g1 IbEvFJ74aW10BNgpKCMa RiO4HrUtbhkkpQJu H2vwOvZpjJStOnb+PHRh YmxlIHdpZHRoPScxMDAl FjWjkVxjTA0hCe3oCIRc LWNvbGxhcHNlOiBj z7fvDUPvWXyyCV3myXkk F2WpdYV1VHZhy4i6Kq67 dHI+PLQbJKZ2mZziWVoo u225FgPlw4hiZQR5 uYHfLAnrIVR7A89hl5V1 WLGyPQNpYWC8hYV6dV5o vIieukgoM9NqqBInRmS9 DAI8yIDaoQ9ufMvc xsylkD7qUul+Y89YEE1J HTVVSD7IFaf4X1MxBetu dHI+BC33PQGtKW25gTFp tSRgq0maeKs4SoNn OIHkGQD3hJutGFujp2Sa APIzR05bnSEup5K3PNOz lBhsqJTiHoKjlXL7yA0f ZRoragekt1eithzm Tepye8xtgr96jO02W64v YQmrJGUlLKJ4LMQiZWIq kVaxyy2uoT2pVd6+IDxj p9vru6cjwNd3KzGs GTYxouSlyQnoHAX1c1Yr Ub76J1SbtQlfh2WjFlt2 eg26wQNey0X5vCB1CKwa HBLwrR0oOTdlHlD4 DKPnXpQijQ60bFWcRQjh Bf4chRpsjGzoGH5gUOKe ahxdDNUmyQ3sQLTjrMGf nNodAZ9uRUXhsxee p355UpEfRDQ7QOEnjCOd X0TrhJ8aCyOhUTLcDCYt U6NakDVrREdrH188IPef UtX0LBDssyPrH1Rm IWMsaArmFmC7g3H7Pg0N k7CkkcwmURU0RCtyUVO4 RyX9AdReCyN6T9CnPgk2 ZDEyoHheYW3vR5Ja IYGauppeiqzvrUH1DJHy YDZifB97hFRxANzrSv0q h1H3x494WEPwZRYuaK70 Nz0uiBojGBMisNPK zT1cdczdi2ufjzugHaBg KPZnVVg2FNw1OCSnfSyq ZmIdGYB5CeO1PNQ9dNPi vF0huXtsvqtfsI4g Oyc+L01luT4qXXK1DUL0 vkioUJXjhhZnDX96CL39 U5PgJbtokJRbtSB+PGRp vzSbrFaqEI8tUnZo n2wmr7NqWYqkO3AtJFCy VEkzGwr9HYFpMYW4hDO8 hZ2fNQOgSMaxe1H3jKR2 X6KmhtTzqt1ex8pk DWKmLDbgR46ilOLdn4B6 JIWzbXO5DFKkdWwbKcKx pG32Ojo+IELesYgrx4Yx Bpulg1ewb7wxvLs3 IjMwJSIgdmFsaWduPSJ0 o1LpLp64W02rQSkhZZUo LSQvLODlYAYqtElmbl9i iB3nBp2+PGNvbCB3 hIU6yK2oCIKyMzF9VFyf B765NhSrzOXbOtyud9ly w7pwgPv1DzZwKRExlmDx xUuuDAB8h5EgDa20 C96eGKeeSCHhOZNsOBHu LTIkvFglyn9ttA2lAc0+ DX6lb5lwto22mV32iPC+ CRLzMKH3oKqaRAjh SPPzqN4fMOjeBdN3FZQu QrRpaF99oSOvLXsqIb9p aMeviHneWC8eXJDbuaoe k904MhMic1liTIZv tCZfZIvfSNE4V50pb7I5 GVInTNJdDMM4uHI5cX4b bGlnbjogbGVmdDsgdmVy pAiaFGseBDaaC448 IHRvcDsnPlBhdGllbnQg HqWzPYt5R0LgPfz2EPVw xMtrHQ2mpQVmVWgjLe7k fYfxxBbhZP6yMANo vuaoh869RyFlr5pfJJBs oYYvYGecIWH8P61uz3W7 OVIeSZPnBZJ4gTT4xW6h bGlnbjogbGVmdDsg rlMlwFviNAatNEdwO420 IHRvcDsnPkJpcnRoIERh iJJ2UJ35VH52oZKzj4H9 uZL2J0BeXWIpyddk opwssNR9VYHfBEKmsP16 Wt6fbZayDn1jQNPoYRA0 AKXouJOeT7FcpA1sCsUy QDSnNJKfE3UlfBVm CFzdL732XKzcUxE4BNQn kcDzN1XpBSAesBdpDoL1 i6G4Jx6RF2B3YD01AH38 oWDfs3U6qHP3Q6Js YAEchhzqiqgbdXQ2JQLn QCQhjG76Bf7txMvzCx5y MBRpWXX9IYRhpFAzC2Hc vS2dGhYjKKNuAHQc I0ZwnJKsDQlmC707KLse UoK8RKHbljWuD5YaGDKt kMaqGvV8g2N0Cw7SOAu0 CW67BN26aSQzh3D9 iXR6W0AuRSSuiyansbzp gIN1FDHnYKMcnZ08Tl9r kTraMh9hCZEoVAD7GEWj eFRmY5DorV6vXwRf ZHLjCRPoB4KwfOSsHKil N802NEdcQyS6LBTzmmWl Y4TlHOTkeEznGoK8o1J0 Am3IKUVuMT69ZIR5 dZJ8CT12RQ24S6TxKsxh dGFibGU+PHRhYmxlIHdp ZHRoPScxMDAlJyBzdHls MW0pBy9jFPMfPZLw gEercFEoRnCyz2scTSKq YZidMB8krDvaY1MhaRS3 MQHin2s0Ld25R86pB7Rk dXA+FDJokIF6yNE9 mU3pYgHwRlF3VMfaM782 VzQraVDrYsaym9lzf8vj vSh9TjD9OXEwtaLmtNgi YGY7y5FtKe53J78x IHdpZHRoPSIxNSUiIHZh zUramg8ulO2aHi3+PGNv qFZ3pKA7xA3vGrRdBvH9 AWzpB224PqIuaGMq Pukuv4ies3rmuQs7IkJm AXJeotTmsYbmPFC2c8Yh Pv76T7YluAjvc2BrSiz2 sq16kZHjv9Q5iQK4 H8UyCEAcvufxqMJvoRfi ZP3lOHPopfciAZPmpX8d RPPrM4z8KdRoYfY3PYki K4TabiB9CGDhmOIq JWhkTCR9U22tw4A7JURh GFQsHVK7iKB4vJ4zqZrw bjogbGVmdDsgdmVydGlj NDkuWUrnH812ZBRd wPpmSYGbdW6aULYgoUPy sSekHL4uMSBklhtnDdDK Jv1IIgyyX7FCLXSHZPYk TTwvdGQ+PHRkIHN0 jFdlVJhzTXUtzM5fBTHo O5u2QuGfExK3LCihB4Mr KVRoilprIt45bS7oUeHr RiC8LBukK5RqewP5 IAOgkZItODzdEHA2S75d l3A7LHFfBKCcIAS6lWR7 fW1dxHokzpvufUPfuKsv dmVydGljYWwtYWxp L511NHVaeRnlRiBfVyC0 IyF4MOv0L4TkTbg9RLRu bVpvBN2kjNZgRRuiWl8h xVetkDlfGB9cZSYf usweOECpaH8yMVBdoDXe bHqdEU2nHYHceuqmh705 KkAnHPW2YNCdrUSuM8Ln fS3fWhOgVFVqKLIv A6QdjUEeSOxnG520KTed FwT4ELHzfuRfS4OnTIMy pBvpWfW6e6D8Ot8rAJQE ZWFyczwvdGQ+PHRk QOW3dInfCJptOWZqeE6s JBEnM8b4LrLyWpF6TGcm I8XpHANbtkjtMc88rF3k TdHiYzF3HRvmX3Lj rsD8GILvgSFqHElnJLI1 H27rw3J5CZJuKSOsAJU0 mYP9gW9ljSsfpxawmTCz dDsgdmVydGljYWwt DNjvU174YTCsnTsfTeXs bWFsZTwvdGQ+PHRkIHN0 pMxrYXeyFFMtrK1oXWPx Z3k3RyJuXyM4RHbx T3JmAESgmhlcKi95gP0j AtEdZjR1XVclK8AiitA1 BXGimZBjSYkaIMB9R33l s7S2HQRuLVQtRZU0 iKX0uP6coAngfpfjgWRt dDsgdmVydGljYWwtYWxp R475DBGadBtqQfbuHzOT ll7bRF6yEzrsxMG+ NQ64az94H2VbZkuxYnc0 GEAxZIP1yNC1fQ1kCUJp GXbft4O0uTZ6P1QcuaKr ki1kh4lhRGYjZTsq C45qfBXwo3B2GWQppLF5 SZCbbHdrPtVkiB23Zrj+ TFMaiUvjf4OsCvjsn0we c7xvjPw9JvYlCCVi gfRzzSnzLWK3i1EtPj98 S38aJKqmXJLwTZNcBBHa PUWqiMkrjv0ojU3aZo5+ GQQetNJ8kJW9vM5z RcNsUjK7LSgaU610QgIe kBJuOpniz5bsc5ptrTc7 IjIwJSIgdmFsaWduPSJ0 d6LnKt61X2XfxTqs k9VvVzv8up03zQXql0F1 kML2Q1FwYTQgmdgzrVNt vNwkTI8dHERqipxiJEUh sA6aTBAzF7b8XqAc KuF2GIivL3VkfkO0CLIk pVKlBTMbiFJIhT7zdkwc e8qpohnwPfChSXQsDQl4 PQf3LXGyuNreXyPb SBK8HfH7JWG4sJEohD8x xGdreroxeV9rAxr+UGh5 j6lceAViBB6knUC5FY28 CT46wEFts6H9nFL1 V5TpEHSywoyogqmdxGE6 XGNqUBLfhY84Bs5boVur Qo0fDXVpYAW3FOPlyOKh H4GapD5xIhKiYZRt TFFiN6IjpDDeJTeoY258 KEquLtU2QXZukzNlW2Xf MPQtsZftQzT4b5H7Gx6P KS46RF38VO79sMWg f5O3pLM1X9CoOXKgnmyp lecccUV8VEVoZMQmvW01 Gk0reKwhKv2vGJUpPCD0 ZCJybJPpO9KpjK6c QvHtIYZhEHOzK9IxmROd XEmeS058EIprAoN8MFZr mkKoB5MmFYFcqXmvQxQ7 f3O3Vx3UJn42KC54 BR63tXQcg2W0tER2G1Gn GCVidgnkahwzlRJ2IOVl AVUgqX53By6jsZqwVe3i RJMcDTK7KILxxBYc J1UteH5zVvPaNLFfPSQg J0BxdCRfMXztL835IOhr QwK2KFVldvZwS0FaRNPp fDpgPnR0b7Z0Li5U OFaivbk9K6SuRhztcEC+ AN49TLEqTB32mGZhiGEz q2cczLi3VhMlFEFaNCE4 lWmxWEatw3FeBNOu Y29s (more content not included)... Normal [facility] Lab Miscellaneous-LCon 07-17 Lab Miscellaneous COMMENT Invalid Interpretation Code [facility] Comment on above: Result Comment: Test Ordered: IGP,rfxAptima HPV all,16/18,45 IGP,rfxAptima HPV all,16/18,45 Note WB TESTS RESULT FLAG UNITS REF RANGE LAB Clinician Provided Cytology Information No. of containers..01 ThinPrep Vial DIAGNOSIS: 01 NEGATIVE FOR INTRAEPITHELIAL LESION OR MALIGNANCY. Specimen adequacy: 01 Satisfactory for evaluation. Endocervical and/or squamous metaplastic cells (endocervical component) are present. Performed by: Maru Dong Director Corporate Communications ([employer]) . 01 Note: Note 01 The [...] High,A-Abnormal,AA-Critical Abnormal Performed at: 01 WB [facility] [address] [place] [address] Terri Cantu MD, Performed at: [facility] [address] [id number] MD Pepe Murray Performed By: #### 1 [id number] ####[facility] [id number] [place] [address] Lab Miscellaneous-LCon 07-12 Test Code 597326 Invalid Interpretation Code [facility] Comment on above: Result Comment: Test code corrected. 07/12/2022 06:39:13 EDT Performed By: #### 1 [id number] ####[facility] [place] [address] Test Name IG PAP APTIMA H Invalid Interpretation Code [facility] Comment on above: Result Comment: Test code corrected. RS 07/12/2022 06:39:13 EDT Performed By: #### 1 [id number] ####[address] [place] [address] Physician Orderon 07-11-2022 Physician Order [id number] 26#1.00CD:127 Normal [facility] Reference Laboratory Testing Ordered By: Klever Peralta on 07-11-2022 Test Code 696288 Invalid Interpretation Code [facility] [place] [facility] Test Name IG PAP APTIMA H Invalid Interpretation Code [facility] [place] [facility] 022 Nursing Assessment [id number] 5#[id number]:127 Normal [facility] Coding Summary.on 06-03-2022 Coding Summary. CD:[id number] Gh0bWw+PGhlYWQ+PE1FV KOiV46gbSHapB0ZV0hGO Q8YXOTIKIQNPN7KVR5nq WM9AJweQ0QszoTv QqslbPXsBS52XAb3PMP4 vAcjELemtH2vdGEdS3k8 DsKlDL26cQ33CUeoMILx HgO0SyFtafvgjMHf C9osWxQseTVnSor+PHRh YmxlIHdpZHRoPScxMDAl FpLqkSmqOF8cGp9sZDNj LWNvbGxhcHNlOiBj v3tdIBNhDEreQL6yzYjr W2IttFT9EYUfq0l9Ku86 dHI+HAAoVUH8zUygQBgs r866NhPmw6hdBGT6 dKNoGSamDST8V72yt3Z3 YIDlEBRwVAY9bPW7xO0s aXcunrywP1QzxUJmEoQ2 CBT8oMTwwI3qyXcq hiumaS1mRnz+I85CLV3S JFWVNT7XKxv1I2RlBiym dHI+GT66YWWyXS89dSWr yETtj6swbMs0EfYl XDPhKSS8tLubHFrfm2Tt JRWhP95psYGfn5Y4EZWg dXsrsHImYxZadVH5bS1l HCpzymmgy4omdhqz Dthsm0ohxq41bM60B90l GNqyAIGmGZP5QNUqDYNu tMqgdq0loI3yZs9+IDxj x0kkq7mffSv6AtBa CSUmtmZtbYnjRUD3l6Ia Gq09L3JxpFewk2YpSco2 gy86zOIog0D4nEH6YGvp XTGxvX0eNRklLtZ8 OHIzWcMakW87fRThJEyq Xx0tpNtdsQhmYO9zFEQb qpanBNXohK6nYQKqdGIs gIajHV6zHHHcvoum q363LpWwSSA8MNMteOZv S7MjrS0hPdJtGMAxZQGt U4LcxSJbRUiaI205XUcq DyV5WYNmopPcJ9Mt ESExoLkrMlX8o1R8Kn0B j1BkkeanAUI0XMheHYM1 PyUwOdNpCcJ1Q5MoRoy6 FZCkzOvyYQ3fT8Ds LJPeatwjggzpbJE7LJAg IXCjhW41nUGuBMlvVy1t b2D4u593ADLyAXSaaS56 Nh9oyUfcPSYltNEZ eH5addscz1ektpjyEoUb PIPgFYe7EZu9KOQyuQfe PsUfJYD5HuW9ERH2oZGt iR4uuEnpyxsonX7u Oyc+B65uxS2rRTM6EVP7 iuhtAQSyhsAtBW92UJ73 Q6PtYugrzFUptBL+PGRp vmSirVusYU6aQyEm a0gsa1LaKAjcZ7VwFWYe IWrsZpg7BLHoIBO2fDX7 qP2tBNMuJZzqj0E2tHN8 D3AfktKars2cr0oq PHXyDKodG72mjEHqc7W6 LJSivPJ5CBBfxStkIlGr wA59Aqj+TADgmBstq0Hz Rxwcq3daa0keqCx3 IjMwJSIgdmFsaWduPSJ0 c5CkLr49U35wTHvbBWLj OHSdQBYyKFTqsYdrog6z bG0pPy3+PGNvbCB3 eLR5rQ3yDQDnBsN1GFus E660JiChkRHwTbpck4nx t1ymqKg8DuQtLKTgokJn sUabADA7b5QvDl24 C26qODwmFJNyTKInZNLc LYErkIqoiq1odJ3iTa1+ SU1ps9jial98sK08pJU+ HUJzTEI8hOvjSSsk WPLfhT8sOFctErB1MRJy UaJbrV30wKCpLNfwSo2d vXsufJqxQZ2fBPJbeokn v000BeZos1owQELa fYSkWNrmBXT3T00yu2Y9 JITkQEJxYFW7nAU1nI0j bGlnbjogbGVmdDsgdmVy hDddQEdeGCgnM967 IHRvcDsnPlBhdGllbnQg GcBuXGc4I7BiOas3UZYx bLkaSV2yzJNjVEuzDy5u yIdeiAfqOC5yVBOa nmjun221PtWot5jqHJMm xFToXIjvGRL3J62rj0P9 NYAcQXZkTEC8uFE8tN6f bGlnbjogbGVmdDsg tkKsbXddVAbrKCynP720 IHRvcDsnPkJpcnRoIERh dBQ8YK47JF62dEOzt7X0 gBC4K8NgUONcutvo piexbYB5PYDdOXGpuN16 Fc6zbZatQv0gUUQyRKP3 RVRacAXfF1SelR9sTiIh VTZiBHVsD0FmoVYe FJkpL591TAojPzK2VULw ypFjP2DeBQQdeLljWgF6 m0L9Dc0DS7E0RU19SC55 tCXgy5U3gSG2E6My GYAokifegsrgkCQ4AVId KMHssR69At3shSxfYz5x DAXwLYD2VOPdmTHlT0Pz pX4lMbQnIYReGUJv X7IfiKFpUUrpR501KLle WcO7FAUqsdYpU7AeSWHz cAxoEiT4a4M4Ca1FZPa6 GO78WE51jYJgm2V0 iCJ4L0OwTSGqsvrxgacy hVP6HBZtTLGxxJ60Lq2k dYuqPe7mFFOnQOO1GZVq oAAqF6FntK5lQbMx DEKqTYYuT3ZxtBTuSRfr Q212EYseAfF2TIIaaaTe A4OeTTVjcDumWqT3f8K4 Dw9JMPCqPM64MMV3 eCR5IX03BZ26P7XtXzxm dGFibGU+PHRhYmxlIHdp ZHRoPScxMDAlJyBzdHls DO1bWq2uHWNvOUVf vMrwkXZyEfKpb8deQHWz ASuyJJ1yaAauH6ZviGK2 XOLks1h4Fp12R39dQ7Fl dXA+JQCnuKC5pWA7 pX8uVmFoZmU5MIpnZ327 IqGhaKFcEghbo5tgv8ox eHk8QeQ7BWIcfiZgmSaz SOW7z9JbTm22C91i IHdpZHRoPSIxNSUiIHZh eNmqeq3bbE7gBu6+PGNv tJB8jID7cB3cIyVoPqB4 HSmfZ580WmNhjEZq Czqcq5mwf5obcPe6DbDv DVNmynFedSixHNL0j5Xf Za46D8QnyGkws4TcPsj3 cl80wCWfb7D7kTX9 D7XpGAAdbnwrtFJbeFzs LA5zTIRpeoixGDAflW9y UTEdY4u8CtFcSfA5XBqn U1EuuoT5ZPUceXMa JDgpNGK7M17ny4M9XCDb MRNrIYT4dVK1zF3gvPdq bjogbGVmdDsgdmVydGlj ZUuyPGdpP264KHVw pQsfFSBzcJ5hGCNuhALb iMneTF1qQCGsqlpcNyIC Hk0IXestW6JJPVMZHYXf TTwvdGQ+PHRkIHN0 qOcqVBjaNODzbI9lGYDx J6n3GrKnYsJ4GRgmS3Xc EEVqokhjNm34uJ8yKxFa JgG3SHvmK2BbsrD9 RHPzsBJcVVjzENX4N85m p9Q6UTAyKSBaMBD9lBS4 gC4bwEbsbkxobGTlcXbu dmVydGljYWwtYWxp O297MQOxuJotUcPjSkJ3 RmQ7APm6Y8DzQhx1FFWw eWrfAC2ekZXaTQmdLx5a wJcoiRjaJH0xGIPd ofutAXKujZ2jPWFowALh nDeoJK1pNLPsuuuiv677 EjKsAZH1ZSUwtQYmJ4Xh vE3uJiIkHSGnKCBs X5QnmJHjMZmiJ496DVwe EcS3ABSkofHdG4XoZGFv zLmiFdM5v1K8Cr7aETOK ZWFyczwvdGQ+PHRk EAE6nOzvKProKIAyvQ2z XOTzN1l8JsGiHtQ3PMdc G7TqEPYslxotGr37yX0w EhYfRrI8WDkiG0Dc alR2JGFdpHUoJMzrNYR0 P05tq0U4MAFnCVVdKOX9 bEY9sB7uxQxzbbcugYMv dDsgdmVydGljYWwt TCvqJ362PCPuaQvaVlEc bWFsZTwvdGQ+PHRkIHN0 nHawUDieYXWqcX8rQCFc J3f7GvAeLpZ4SWoq K5KxWSHiytedHy37zU7d KkOfSaD7TJofS9UbjiD9 WFDlpBGrAOumPDX7J21i p2G3BXNhJABuELU6 fDT9iM5vqSmagfpcrCMe dDsgdmVydGljYWwtYWxp O461UIKwdSpsZwomwAI7 aWVudDwvdGQ+PC90 ux19S7BlDgelVol2BBXv QZR3uXZ8iK3mSBOcGPlz y0K1bIF5S2FjosDjgw0k u3pvEVLeMWfpD72r gITut9W2GNCytUI7RJQo wRunKgWaoC00Aiu+PGNv gUfbd4IrQdtre5hdn0vt eDd1SeJcGSOjohZl yFcrRMC3y2AjRd05W96d IHdpZHRoPSIzMCUiIHZh qUlwvi6cgG6vFi7+PGNv cND7pHJ1mY0iLcPq LsU4YVhjG561ImFktHNt Ohfof6fhf4mkrAw9HlFy OYXfwbHosMzzABW9a9Ep Ew25I6IukNeja6Ir Jzu0xh83kKSrw1O7sJQ0 U2UpJGQmnqyrlSDxaXxv LN3sMBYmpwioVEAejL8m LBNpX7c8WnKeTfQ0 NOutR8QqrzV5HGUalDIm FOGueECVqC5xcaxwl7up xfasBcQkZWWxREf9KEg8 LWFsaWduOiBsZWZ0 HjH6MFQ6mAYfbX0csWhs owmghU5bEze+RVz8p6ti sKItWV7jgVR3AN68MS10 hURnt2E4fZE0D2Lp TMMzcpzckgqasEJ0INIx JFAluT75Sc3pgCtuQc0c XSJeHNF3BDAkoJMhM8Ga sH6uGmCnLRHoARGj F0TreOOtKWozD670ZFtl QqO9LSAranPmJ4ZiLQXr iYdlFyE1t2B8Jz1XGM12 GP21LO47uGGet1H3 yZX9Y6BzUDDdshwzxjob tSV9VMEcXPYokJ23Qf9t xTnlNb7jDCShXSB9VIKd nJTzP0PgyB1cMhCm LMQiJLRnB1XwyOEpNKpu V758XNomYhP1WPVyupLe T7HeYDTinAhrWsW7y2K6 Jc1WPx54FD71QH60 sOFwv6Y4rFQ3J5ExPFAe eomrvjpvgWQ3NJRbFLKa mF93Ee9woVqfKd2sBTZt MBF3EMYgpRPhD0Nk fZ6mJxZsXLLxVMIcU9Mu bTDaMSkpD855HKkfCgY3 UHFiknEcT1NuYEYimSmv TlR1c7F0Jy9RSFmn pyj2S9CcTneapBI+PC90 UPEmEV66rWRwcOKox9nx iAt9DjKpNSGmTJD4bVrw GCvaq1QpVAMmB46d bGFw (more content not included)... Normal [facility] Nursing Assessmenton 022 Nursing Assessment [id number] 5#1.00CD:127 Normal [facility] Delivery Summaryon Delivery Summary DATE OF DELIVERY: 05/30/2022 The [...] the room. Devin Pereira M.D. Dictated: 05/31/2022 [id number] Transcribed: 05/31/2022 Normal [facility] Comment on above: Result Comment: Elec tronically Signed By: Kelli DEMPSEY, Devin Collier\.br\Date and Time Signed: 06/02/22 11:12 EDT CBC w/Indiceson 05-31-2022 Erythrocyte distribution width (RBC) [Ratio] 13.3 % Normal 10.9-14.2 [facility] Comment on above: Performed By: #### 2 [id number] ####[facility] [address] [place] [address] Hematocrit (Bld) [Volume fraction] 29.4 % Low 34.0-46.0 [facility] Comment on above: Performed By: #### 2 340166 ####[facility] [address] [place] [address] Hemoglobin (Bld) [Mass/Vol] 10.3 g/dL Low 12.0-16.0 [facility] Comment on above: Performed By: #### 2 [id number] ####[place] [address] [place] [address] MCH (RBC) [Entitic mass] 29.0 pg Normal 27.0-34.0 [facility] Comment on above: Performed By: #### 2 [id number] ####[address] [address] MCHC (RBC) [Mass/Vol] 34.9 g/dL Normal 31.4-36.0 [facility] Comment on above: Performed By: #### 2 644218 ####[address] [address] MCV (RBC) [Entitic vol] 83.1 fL Normal 80.0-100.0 [facility] Comment on above: Performed By: #### 2 534456 ####[address] [address] Platelet mean volume (Bld) [Entitic vol] 9.5 fL Normal 6.4-10.8 [facility] Comment on above: Performed By: #### 2 199136 ####[address] [address] Platelets (Bld) [#/Vol] 192.0 E9/L Normal 150.0-500.0 [facility] Comment on above: Performed By: #### 2 588721 ####[address] [address] RBC (Bld) [#/Vol] 3.5 E12/L Low 4.3-5.9 [facility] Comment on above: Performed By: #### 2 867362 ####[address] [address] WBC corrected for nucl RBC Auto (Bld) [#/Vol] 9.4 E9/L Normal 4.0-11.0 [facility] Comment on above: Performed By: #### 2 477111 ####[address] [address] Discharge Instructionson Discharge Instructions [id number] 0#1.00CD:127 Normal [facility] HEMATOLOGYOrdered By: Swathi Weir on 05-31-2022 Erythrocyte distribution width (RBC) [Ratio] 13.3 % Normal 10.9 - 14.2 % FT HemeAutoSS Hematocrit (Bld) [Volume fraction] 29.4 % [...] Inpatient Clinical Summaryon 05-31-2022 Inpatient Clinical Summary [place] [id number] Clinical Summary Person Information Name: ADONAY SAEZ/[place] Age: 26 Years : 1995 Sex: Female PCP: Shanna Daniel DO Marital Status: Single Phone: [phone] Race: White Ethnicity: Non- or Language: [place] Islander Visit Id: Visit Reason: WATER BROKE Speciality: Acuity: 1 PP Enc Type: Inpatient Med Service: Obstetrics Arrival: 05/29/2022 07:02:32 Discharge: 05/31/2022 15:30:00 Dispo Type: Home (Routine DC) Address: [address] [place] [address] [id number] Provider Notes: Diagnosis: (spontaneous vaginal delivery); Shoulder [...] Follow up: With: Address: When: Dr. Pereira [phone] Within 6 weeks Comments: Call for any problems. Support Group first Friday of the month at 11am Call if fever>[phone] F, heavy bleeding With: Address: When: Services [phone] 06/03/2022 2:00 PM Patient Education Information: Normal [facility] Inpatient Patient Summaryon 05-31-2022 Inpatient Patient Summary [place] [id number] Patient Discharge Instructions PERSON INFORMATION Name: ADONAY [...] Follow up: With: Address: When: Dr. Pereira [phone] Within 6 weeks Comments: Call for any problems. Support Group first Friday of the at 11am Call Dr if fever>[phone] F, heavy bleeding With: Address: When: Services [phone] 06/03/2022 2:00 PM In the event that this physician does not participate in your insurance network, please consult with your insurance company to find a nearby participating provider. Comment: NADJA Jain CAMIELLE M, have received the attached patient education materials/instructio ns and have verbalized understanding. Patient Signature Date Clinican/Nurse Signature Date MEDICATION LIST New Medications [facility], [address] [place], [place] [id number], [phone] ibuprofen (ibuprofen 600 mg Tab) 1 Tablets [...] Last Dose: Next Dose: Pharmacy Information: [facility] PATIENT EDUCATION INFORMATION Instructions: Medication Leaflets: You may receive a survey from [employer] asking you to rate your care experience. Your feedback is important and will help us understand what we do well and how we can improve the quality of care we provide to you, your loved ones and our community. It?s an honor to serve you. Thank you for choosing [facility] Normal [facility] Insurance Correspondenceon 0 05-31-2022 Insurance Correspondence [id number] #1.00CD:127 Normal [facility] Coding Summary.on 05-30-2022 Coding Summary. CD:[id number] Gh0bWw+PGhlYWQ+PE1FV VGqE30hoNPdlY3PK0uSL O0TVWFOMUKAIM5EOU3mb FK4GPhfL3YcyhNc IvfmqQNyTP66OSt4JPE6 kHceXIvhbH5tfTTaI4t4 VcGsWZ52eE05VPmnXIUm WgJ5YvUmvqhdeIUj H6amIvEutWFfBam+PHRh YmxlIHdpZHRoPScxMDAl HnLffMrsQL5bLp6uJESi LWNvbGxhcHNlOiBj n0pyJIRzAJfwBW8spNbs T8TqgNY9NODti9y6Uh53 dHI+SDYiJHF1pUyiUSbj m941AxYpe9niDJS4 jXJdWYumTBP7G18co6F3 GFTsQZPiUUA6oSB4dB4b aJoaonzeA0DovFYkEqM6 NEH8kHGsbV5upQgf mrkezS3vPus+C31VGY9I PJISLK7OCfi2T4MxXizy dHI+NP95DXBbGU52yVPt jNVfc0ngqSb6ZqBi SAHtTKU0sZthBFboy2Ls LZAeC55fqZGbu2N5IEPv bRjxwLRxFoFcmMV2aC6m ARanbtkod0tzqwhr Pqbhk2uwqn56wV23C98y HEriVIZfETZ0JQDfIHMl cSitvh9bjR8lZl0+IDxj p9lgz2ecaFq1BnGj MEMimgRbgPteLPR6a7Wa Mi75M8ManJjrx9QvRtb5 ie21mAWqq2N2bUL3CXkf WMBeqR6rXPhnFrF4 MLCwPkCgkX10bTSyRImr Ft4ryLxryCouPG0gUMTs kjeiPVBwaW3xUSJxcGEo jXhtJS2cHQMnnmij c551XuLrZNZ0QCBidPUh I5EbeK9xXwCuMZVyJBOn A1EkoZCvMNwnQ756QZue DnC2LJOiswAnM0Pt ITChcVldCqI3b2U1Jk5S e6PmvtwtUTN6FWplJQI0 UlB4KnMtTwD9O5BpStq1 UDClaQxaFU8xV8Ur ZNDcnyzmfmuhlPZ3TVGc JFVimE97gPXxGWhoEm3k m8H6k219YFXnUPLnsP31 Qm3yxBbsCTQpiKFU gD6pphxdy3xtrpngYiSz NBIjYNu7KVl8YBHrsZuq AvAeKKP2AhR4KJJ9dZRe gW0caLxdvdguhM8c Oyc+S09vsP7sBDR8OYG4 xzknFQHfnpOxYW15LR59 Z2UwDeghnYMnmJT+PGRp oqGdbNyjDN4zUrQm p4gsq7DkPSwaV4VmRGVw XNcmKde5WBTpMMG0cWM8 gD1lAZFwCMrdm3H9hLJ2 W2FgfiDhzb8sg3lc IMVhAVbbT90smDRdf6B5 CNZueNF9QKEsgYtgOaPb wJ39Eap+RGAxwOxfi7Qn Wjgrd7npo6perSt4 IjMwJSIgdmFsaWduPSJ0 v8OxCq41K10uWVezGYAm OWYyWJUlBUHrqFjikb8o tJ6lJu6+PGNvbCB3 nSG0kN3jSMIsEiC8TAxa M858ZqHpmJSkVeqtu8wx z3eoyKq3SiLoVSDsicFs wTbnXUY7c6VpGu16 P08dKEfxFTSkVEEuOULc CWFuwJuqkt1rqS7wJq2+ KG8sf6xyjq79tO89aYM+ JRLoLFV8sYwiJJao EOIlpA4uHMknYvP1GEMv IySaxD41vALtCTyiBh8u sKnjeKytSJ3mNQYiavkb i754IoFiw3xkXFAd qBGnPRjyQWE8J43rz7R0 TBAjRRXkMRD6pLF0tI8r bGlnbjogbGVmdDsgdmVy lFpvVJaqWUwlU567 IHRvcDsnPlBhdGllbnQg SzFpCXy1T5GxUke6VBPy wJkqQA8quUYuXYcuNp4n nRakaVmrVC1tQMEn lebxr635SeGgi1cyHFIv qJRdWFmlGMY4D03xb8P3 MQRkGQMeUOW5iPO4rR6u bGlnbjogbGVmdDsg biKonYkdQOhsRRotT907 IHRvcDsnPkJpcnRoIERh oQT3LT75RX18dKRwq6K1 lAW1B4IgRYMtukcd urizeSE5CHIzUIJbkD62 El1uvYelNh5sMTSkVSE4 ELWnmLOcM8CzwY1vUrBr TASxLOKcN7YrlTYp HDkoU351QYqeMiD9OCDq dbHgK1HfVWPqgUsmHqK9 c6U8Kv6QY2S4YE34JU10 jYXcj3O9vBP8Q2Bk DGWvvkwmhqrmuXR7BOHh RSPhjC01Eq6qbUiwZt6f MNPzUSA5DZVcyVVgI7Cn sU3wQbRgNEQtKJCw Z0IvlBMsKPuwK053OXtu JiF5GSOatmFhP3UhQSMc bSvgJyO3z1U9Gi7ENGb3 EK57TG77nZVrc9M8 gFO9N6AmTTCqpnecsvxv rVG7CPWkAFGinY79Ku8v sSiaMb0pYTXfFAN4UWTv rQZfK4CmuW7sAaYl BPKqWBRhU4XouYSsIJtw C430KOaxFwH3URVfzsLb B3CkDIRhnTvzWgL4e7K5 Ll4QDCWjZO17IMK6 yWA3XE10BN16B4OgCpeu dGFibGU+PHRhYmxlIHdp ZHRoPScxMDAlJyBzdHls AN9sRt2xFBLyLBEo dKaiqMQmTbKhh2tbQCFq MHusPS0enJutQ3ChfGY7 GHJdh4d1Er13K60eG8Pg dXA+OMHlgTG2wYD1 xQ2iIjNuEgI1FEuxE500 ShMlfYMmRajhr3qfw0gt oUi5DgK3WQUunnMcrUiq XJV3q0LgVt68P46b IHdpZHRoPSIxNSUiIHZh cPiewg1czQ4lDr3+PGNv pYY8qZJ8fL7dCrEvRqX0 TAyyK510DaQpaWVa Xsrkr6aoe7sqzMs4OaBy WWMkfpMgwHeqDYH4i0Fm Eg57P0TedLzzi6EqEil9 ba69cYWfu5N6uXO1 V0XqXVLbikmfiUZcmBtj JC1vOAQyjnedJPTrlD3d FBJjO1v2XgTyWkA7XTcg J5WhmoQ4SYLdsMRm REpuZVW6Z23xo0N4FIRx ZMDyZGS4mLY5sD5mzSmk bjogbGVmdDsgdmVydGlj MVltTKneK338GRAu kEkeCUPghC0pKMDjoTLi wSboKB4tLSBakbkfBzNG Yl7BGdfaX4VDVHVILSZq TTwvdGQ+PHRkIHN0 rCuqKZxlXDVxlV7jZBPb M0r5GfPlBlN7EZtvQ1Ko VINzyckfRh58vH5cInSr YzA0QChpQ8UdqqC8 NUHthYWqYLuzZQD5G10e u7Q3KCTxSYPjEUE0oFG0 wI4qsEdnkznnfBNwvFap dmVydGljYWwtYWxp P716VAMhvDuwCfGwIxN9 UjY2UAx3B2KdFzl9TECa rTljPF5mnPCnXAbvMw7i iDkjqWxkEP7vPEGx xmmfQOHbtC8fPQLvbUOi lVdtLQ2gLVWbiscbd071 FcLdRDF6DOWnyBRwI7Ul yH5jClHuGRJgEDSo W7HyiGWqSRpxQ772SAfi GrV3QWTloxXmG2CjWHGj fZqfKxA6w6P6Gn0gOIMW ZWFyczwvdGQ+PHRk NCG8wRxtGUhyCWUgnB0a IQXtC6u3FlOfWxD4UJjk X1JqANLnpkuoNk23oK6i UeSpQsE5EFdlQ4Jy cdZ8HSXzaKAaMFnmATK1 I78rt9Z6WUMlPWJoRIE1 bGA8sR0seHckhgxyeOWa dDsgdmVydGljYWwt YOtlD935IPBluYpyZrYu bWFsZTwvdGQ+PHRkIHN0 dRorPHivZJGibI4wTBLh R7y8VrCnDuO3UYtw D4MeHAWcxzesSt80dG2a ElRxCuZ7AMrnM8CmcxL7 KKGvzNCiPLwzUAN1K14t e4F0EZEcEWAsIEB2 wJF7zM8brPnyzrkazPZk dDsgdmVydGljYWwtYWxp N166JJKobPdmMk8GPHMh aWFnZTwvdGQ+PC90 bd64X9RwSjlyAoq3QGRt WTG8rUX1gB9cRGReABgb f6W7pFU0E3VssiFabt8a t2qeXAMnKVjnA96o lVYrn4F8CJItlLR2FAQo gDpmNzGtbG28Nle+PGNv bWyhf8OmBpojs3kga8sf tSl5RuMxGBUtvvKj lVchQMF4y4McBq09C19g IHdpZHRoPSIzMCUiIHZh aCfphz2uxX2gGm2+PGNv aCS0eXJ0nL1iUtBe JiC6BLabR936AcRwxHLd Jmekk2nay5utqYk2DsBp UCEfvkObhAqaWBO3v7Lr Tz54L4RkpGnkx4We Jfd6cb49dRFsv7Q7aYZ9 X8BbMBXdebtzuZXixYze OW6kFYZpmiynWJKklW4k QSBjS7p0XxFnAaK1 LUrbY6SewkT4SXNzcSSw ECMasTEQqH4dkjbrx9hh beibYpArSQLyYHz7EMd2 LWFsaWduOiBsZWZ0 FiU0DJV9bQCnbI1hyIkj bxpbsE6iTim+LHf6l1hi zXLqWI7xcWP3KT88MJ10 pDElw2X1dTO8V1Di MWLbkemhlrnfwWT4NUSt MEBsgT31Oq2vpOcnFt7x KCRyFKQ5PYSzqXSyP7Wr qR7jWzTrOURtVQHh U2XgeBFwJNnrU408CXgp SdC7WTCfmlHjQ8AyJYIj mDpkCbA5f7G5Kz4YEH76 GB57WV83zTDit4L7 oAE3H0OvEHPvlkjeaqax nTW9MLPpLYFrwO67Rd1m eGmyWl6lEVBgZBA1FLKx tFLhL5VthU4fYlUf XWDrUNLdT9WjoYFzSNew A779ZTifTkW4RFFytiBs L8NcMHXvhOkcXvB9d2T0 Ff8RFd45WE33QD30 eYUye0A7gZA0L4KzKHZj bnuuigxgeYY1TKLiGQCp iC26Vp2etOvtWm2oGDVy ZPX0YTXhoCGzP5Uk qQ3eAqHqKISuRCFoD4Nm iUIkEBzeE332ERdaAlQ4 WGOlokFpM7NnHDFemBzb ZfW1y6Y2Es2PGHhy jqd4I0McLpopnBU+PC90 EXDlTV51tFBmwJJrn9pq wZt7IgGeMNXqPWE1qPde CGlzx4WeOERoA22n bGFw (more content not included)... [facility] ABO/Rhon 05-29-2022 ABO/Rh Positive Invalid Interpretation Code [facility] Comment on above: Performed By: #### 1 [id number], [id number], [id number], [id number] ####[facility] [address] [place] [address] ABO/Rh History Checkon 05-29 ABO/Rh History Check Verified Hx Blood Type Normal [facility] Comment on above: Performed By: #### 1 [id number], [id number], [id number], [id number] ####[facility] [address] [place] [address] ABSCon 05-29-2022 ABSC Gel Interp Negative Normal [facility] Comment on above: Performed By: #### 1 [id number], [id number], [id number], [id number] ####[facility] [address] [place] [address] BLOOD BANKOrdered By: Alexandra villaseñor on 05-29-2022 ABO/Rh Interp Positive Invalid Interpretation Code [facility] BB Subsection ABSC Gel Interp Negative (05/29/22 7:39 AM) Normal [facility] BB Subsection Blood Bank ID#on 05-29-2022 BBID# [id number] Invalid Interpretation Code [facility] Comment on above: Performed By: #### 1 [id number], [id number], [id number], [id number] ####[facility] [address] [place] [address] CBC w/Indiceson 05-29-2022 Erythrocyte distribution width (RBC) [Ratio] 13.1 % Normal 10.9-14.2 [facility] Comment on above: Performed By: #### 2 396864 ####[facility] [address] [place] [address] Hematocrit (Bld) [Volume fraction] 33.1 % Low 34.0-46.0 [facility] Comment on above: Performed By: #### 2 304398 ####[facility] [address] [place] [address] Hemoglobin (Bld) [Mass/Vol] 11.4 g/dL Low 12.0-16.0 [facility] Comment on above: Performed By: #### 2 904946 ####[address] [address] MCH (RBC) [Entitic mass] 28.5 pg Normal 27.0-34.0 [facility] Comment on above: Performed By: #### 2 074348 ####[place] [address] MCHC (RBC) [Mass/Vol] 34.4 g/dL Normal 31.4-36.0 [facility] Comment on above: Performed By: #### 2 357299 ####[place] [address] MCV (RBC) [Entitic vol] 82.8 fL Normal 80.0-100.0 [facility] Comment on above: Performed By: #### 2 540664 ####[place] [address] Platelet mean volume (Bld) [Entitic vol] 9.7 fL Normal 6.4-10.8 [facility] Comment on above: Performed By: #### 2 625347 ####[address] [address] Platelets (Bld) [#/Vol] 215.0 E9/L Normal 150.0-500.0 [facility] Comment on above: Performed By: #### 2 084042 ####[place] [address] RBC (Bld) [#/Vol] 4.0 E12/L Low 4.3-5.9 [facility] Comment on above: Performed By: #### 2 776390 ####[place] [address] WBC corrected for nucl RBC Auto (Bld) [#/Vol] 7.0 E9/L Normal 4.0-11.0 [facility] Comment on above: Performed By: #### 2 828627 ####[facility] [address] [place] [address] Consenton 05-29-2022 Consent [id number]# 1.00CD:127 Normal [facility] Consent for Procedure/Surger yon 05-29-2022 Consent for Procedure/Surgery [id number]#1.00CD:127 Normal [facility] Consent for Treatmenton Consent for Treatment [id number] #1.00CD:127 [facility] Discharge Instructionson Discharge Instructions [id number]# 1.00CD:127 Normal [facility] HEMATOLOGYOrdered By: Alexandra villaseñor on 05-29-2022 Erythrocyte [...] 7.0 E9/L Normal 4.0 - 11.0 E9/L [facility] Alicia Recordson Records [id number]# 1.00CD:127 Normal [facility] Progress Note-Physicianon Progress Note-Physician Patient: ADONAY SAEZ Age: 26 years Sex: Female : 1995 Associated Diagnoses: None Author: Jose Miguel Garcia Jr., DO Postoperative Information Post Operative Note: Day 2. Anesthetic utilized: Regional: Epidural. Health Status Allergies: Allergic Reactions (Selected) No Known Allergies Problem list: All Problems / SNOMED CT 401371900 / Confirmed Resolved: Anxiety / SNOMED CT 11541477 Resolved: Depression / SNOMED CT 237143438 Physical Examination General: Alert and oriented, No acute distress. Neurologic: Normal sensory, Normal motor function, No focal deficits. Review / Management Condition: Stable. Assessment Anesthetic outcome No post-epidural complications noted.. Plan Transfer/ Discharge: Condition stable. Normal [facility] Comment on above: Result Comment: Elec tronically Signed By: Jose Miguel Garcia Jr., DO\.br\Date and Time Signed: 05/29/22 17:36 EDT Progress Note-Physician Patient: ADONAY SAEZ Age: 26 years Sex: Female : 1995 Associated Diagnoses: None Author: Jose Miguel Garcia Jr., DO Chief Complaint Intrauterine Health Status Allergies: Allergic Reactions (All) No Known Allergies Current medications.Problem list: All Problems / SNOMED CT 326740051 / Confirmed Resolved: Anxiety / SNOMED CT 49474477 Resolved: Depression / SNOMED CT 059957242 Review of Systems Respiratory: Negative. Cardiovascular: Negative. [...] The PCEA was started at 1728. Normal [facility] Comment on above: Result Comment: Elec tronically Signed By: Jose Miguel Garcia Jr., DO.suresh\Date and Time Signed: 05/29/22 17:36 EDT UA With Cult Reflexon 2021 Epithelial cells.squamous LM.HPF (Urine sed) [#/Area] 0-2 Normal 0-2 [facility] Comment on above: Order Comment: Urina ry Catheter Insertion triggered Urinalysis With Culture Reflex order by discern. Performed By: #### 1 1168061 ####[facility] [address] [place] [address] [place].plasma/Lithiu m.RBC (Bld) [Mass ratio] 0-3 Normal 0-3 [facility] Comment on above: Order Comment: Urina ry Catheter Insertion triggered Urinalysis With Culture Reflex order by discern. Performed By: #### 1 3846962 ####[facility] [address] [place] [address] WBC LM.HPF (Urine sed) [#/Area] 0-5 Normal 0-5 [facility] Comment on above: Order Comment: Urina ry Catheter Insertion triggered Urinalysis With Culture Reflex order by discern. Performed By: #### 1 7046550 ####[facility] [address] [place] [address] Bilirubin Ql (U) Negative Normal Negative [facility] Comment on above: Order Comment: Urina ry Catheter Insertion triggered Urinalysis With Culture Reflex order by discern. Performed By: #### 1 [id number] ####[facility] [address] [place] [address] Clarity (U) CLEAR Normal Clear [facility] Comment on above: Order Comment: Urina ry Catheter Insertion triggered Urinalysis With Culture Reflex order by discern. Performed By: #### 1 [id number] ####[facility] [address] [place] [address] Color (U) YELLOW Normal Yellow [facility] Comment on above: Order Comment: Urina ry Catheter Insertion triggered Urinalysis With Culture Reflex order by discern. Performed By: #### 1 8341442 ####[facility] [address] [place] [address] Glucose Test strip (U) [Mass/Vol] Negative Normal Negative [facility] Comment on above: Order Comment: Urina ry Catheter Insertion triggered Urinalysis With Culture Reflex order by discern. Performed By: #### 1 [id number] ####[address] [address] Hemoglobin Ql (U) Negative Normal Negative [facility] Comment on above: Order Comment: Urina ry Catheter Insertion triggered Urinalysis With Culture Reflex order by discern. Performed By: #### 1 [id number] ####[address] [address] Ketones (U) [Mass/Vol] TRACE Invalid Interpretation Code Negative [facility] Comment on above: Order Comment: Urina ry Catheter Insertion triggered Urinalysis With Culture Reflex order by discern. Performed By: #### 1 [id number] ####[address] [address] Nitrite Ql (U) Negative Normal Negative [facility] Comment on above: Order Comment: Urina ry Catheter Insertion triggered Urinalysis With Culture Reflex order by discern. Performed By: #### 1 [id number] ####[address] [address] pH (U) 6.5 [pH] Invalid Interpretation Code 5.0-9.0 [facility] Comment on above: Order Comment: Urina ry Catheter Insertion triggered Urinalysis With Culture Reflex order by discern. Performed By: #### 1 [id number] ####[address] [address] Protein (U) [Mass/Vol] Negative Normal Negative [facility] Comment on above: Order Comment: Urina ry Catheter Insertion triggered Urinalysis With Culture Reflex order by discern. Performed By: #### 1 [id number] ####[address] [address] Specific gravity (U) [Rel density] <=1.005 Invalid Interpretation Code 1.005-1.030 [facility] Comment on above: Order Comment: Urina ry Catheter Insertion triggered Urinalysis With Culture Reflex order by discern. Performed By: #### 1 [id number] ####[address] [address] Type of Urine collection method Clean Catch Normal [facility] Comment on above: Order Comment: Urina ry Catheter Insertion triggered Urinalysis With Culture Reflex order by discern. Performed By: #### 1 [id number] ####[facility] [address] [place] [address] Urobilinogen Qn (U) 0.2 {[place]inton'U}/dL Normal 0.0-1.0 [facility] Comment on above: Order Comment: Urina ry Catheter Insertion triggered Urinalysis With Culture Reflex order by discern. Performed By: #### 1 [id number] ####[facility] [address] [place] [address] WBC Auto Ql (U) Negative Normal Negative [facility] Comment on above: Order Comment: Urina ry Catheter Insertion triggered Urinalysis With Culture Reflex order by discern. Performed By: #### 1 [id number] ####[facility] [address] [place] [address] URINALYSISOrdered By: Paulina Dobbins on 05-29-2022 Bilirubin [...] Interpretation Code Negative [facility] UA Auto SS [place].plasma/Lithiu m.RBC (Bld) [Mass ratio] 0-3 /HPF Normal 0-3/HPF [facility] UA Auto SS Nitrite Ql (U) Negative (05/29/22 6:35 PM) Normal Negative [facility] UA Auto SS pH (U) 6.5 *NA* (05/29/22 6:35 PM) Invalid Interpretation Code 5.0 - 9.0 [facility] UA Auto SS Protein (U) [Mass/Vol] Negative (05/29/22 6:35 PM) Normal Negative [facility] UA Auto SS Specific gravity (U) [Rel density] <=1.005 *NA* (05/29/22 6:35 PM) Invalid Interpretation Code 1.005 - 1.030 [facility] UA Auto SS UA Spec Desc Clean Catch (05/29/22 6:35 PM) Normal [facility] [place] UA Auto SS Urobilinogen Qn (U) 0.8153021 {[place]'U}/dL Normal 0.0 - 1.0 EU/dL [facility] UA Auto SS WBC Auto Ql (U) Negative (05/29/22 6:35 PM) Normal Negative [facility] UA Auto SS WBC LM.HPF (Urine sed) [#/Area] 0-5 /HPF Normal 0-5/HPF [facility] [place] UA Auto SS Vaccinationson 05-29-2022 Vaccinations [id number]# 1.00CD:127 Normal [facility] Consent for Treatmenton Consent for Treatment [id number] 20 [id number] #1.00CD:127 Normal [facility] Discharge Instructionson Discharge Instructions [id number]#1.00CD:127 Normal [facility] Inpatient Clinical Summaryon 05-28-2022 Inpatient Clinical Summary [place] [id number] Clinical Summary Person Information Name: ADONAY SAEZ [place] Age: 26 Years : 1995 Sex: Female PCP: Shanna Daniel DO Marital Status: Single Race: White Ethnicity: Non- or Language: [place] Visit Id: Visit Reason: CYTOTEC Speciality: Acuity: Enc Type: OB Triage Med Service: Obstetrics Arrival: 05/28/2022 08:35:16 Discharge: 05/28/2022 17:00:00 Dispo Type: Home (Routine DC) Address: [address] [place] [id number] Provider Notes: Diagnosis: Problems Active (08/25/2021) Smoking [...] Follow up: With: Address: When: Devin Pereira [address] [place] [id number] Business (1) 05/29/2022 5:00 PM Comments: Call for any problems. Return for contractions closer, longer, and harder. Return for decreased movement. Return if ruptured membranes or vaginal bleeding. Patient Education Information: Normal [facility] Inpatient Patient Summaryon 05-28-2022 Inpatient Patient Summary [address] [address] Patient Discharge Instructions PERSON INFORMATION [...] None Follow up: With: Address: When: Devin REGAN, [facility] [address], [place] [address] Business (1) 05/29/2022 5:00 PM Comments: Call for any problems. Return for contractions closer, longer, and harder. Return for decreased movement. Return if ruptured membranes or vaginal bleeding. In the event that this physician does not participate in your insurance network, please consult with your insurance company to find a nearby participating provider. Comment: I, ADONAY SAEZ, have received the attached patient education materials/instructio [...] Leaflets: You may receive a survey from [employer] asking you to rate your care experience. Your feedback is important and will help us understand what we do well and how we can improve the quality of care we provide to you, your loved ones and our community. It?s an honor to serve you. Thank you for choosing [facility] Normal [facility] Insurance Correspondence Off 05-28-2022 Insurance Correspondence Office [id number] 1#1.00CD:127 Normal [facility] Coding Summary.on 05-22-2022 Coding Summary. CD:[id number] Gh0bWw+PGhlYWQ+PE1FV JZuC69dmJKarR2OZ0aIN D3UEBAGXUBHAN0TKW1cx EG6PGmxW6HqoqGa QkdfxDXbXT92SGu4PXV2 kPjmTEifqM4huHDzJ0p7 UcOpZH54iC91XRuxNSRi MlQ7OpUdyhjubZHp N5fpWqMlyCVaEyw+PHRh YmxlIHdpZHRoPScxMDAl FmOqxVwtBX7xVg2aSASe LWNvbGxhcHNlOiBj i2ljJSZwIJdvSV0qqDea J3MaiWP9OLKcw2i7Ug95 dHI+YARtCAW9sKmeGNgn s828OzKdk4ezTQD5 kZQgEAttISN9G97ft3L6 KSNfGOFoPPY6uJP1uT2n yFtyzfoyR2UoqTOyAlE3 JJH0gLZyqJ1ogYsk czmwfO1tMsc+E12CEI3B VFRHZQ7RIxm7O9EoYcva dHI+WI46NHXbQA50oPXa vVJes4tqwLr5TaYe ELXoNBO6gFnlXCrzl7Hv DLNxK80xxILgw4F7XQOb zExdvRQnHoZgpFY6kZ4n LJtlsldqb8viasra Uyqme8doxt89vD53M16x KEpaISOuQNR6GFWnKWWo nHlbih1jiN8eXa9+IDxj d9dta7jzfMq2TeIf UOJlmuGjjQbdKCQ4e1Zw Vj47D8PmkOmxl5CwSvo2 jo35sNRcr3J5jIN1GMfv MJNonO3vOKkpOzE9 IJVlRdJddD33sIVdBFme Qz2ftAumhIceJB0bDPVw bivdIVOjrJ2eTWNsyPVg nZinRQ5dASPlgahf t876FpZkMPD6TRWapPHg M0PyjT3wTfLtFRCqKVXd N0IoxEJfYQpoJ966GPnp YpW0NZInuhZvG2Ev QYMvfMmnXaF5q3R6Lj8T k0ZpfofgEHF2BZzbTOM3 HnW8LpUwVeM7T5AhHee9 VYJrtHqgXZ7hN3As KXKqvntyrmhxgNG4XCVe TYLbrW55gHXtOKrsDg1g z9C5m041WATyKAKsaS41 Rw1wlPheXCLulPGE zI2hzvnhc0mynhphYwGs GLTtOBj1FPy3RMKokMwp BwLbGSP8TvD0FFB5jVVj hB0cnYmxvazpiD4d Oyc+B08xrW6mYZB0PCW7 iracJQAygtJiOD84ZG25 U1AnQlzqaBVrkCN+PGRp orVqyQqiQJ1dZqEj n5ntk7YmCRlxO4VlKADn TOqaLtl1UUGuAMA2pDT5 uT5yBGUwVQler9V7rOO7 I0KbgwFuhi6mm1cq OYUwSCitJ16thGYeu3B0 LDOobLP2JNNqgZtmKrKs tP60Nop+NIXjaBsjv5Yo Edboh8xgx6ulaNa4 IjMwJSIgdmFsaWduPSJ0 x9SjLp29W78aIRoyYKXw OKJkKGEdHSHdiNdmte2q qK4mHm6+PGNvbCB3 rGW9bG2yONYfFmC9HDhh G956PeLcsROwKenrl5if h9lazQw5DnKkGLWmkgEr wTguNUC0x4EyLr19 Q77hMIruPDKnXQVtMXBf JHDrtZixcf4bgW7dVe1+ GW6vp1atob28yE51bBX+ MXXzWOP7jZxgTPai OTFaeG7mKWeoJjY7IWCa JpFceA46iAKsWNajPl8s gZyyjSykPC7pICXgsqkg t757OrMth1ljBIUi lMYoXIhrIFQ6M76ok3C4 BWYvKEIhGCI7yLW5sB6g bGlnbjogbGVmdDsgdmVy zPlxRBohVIjgA813 IHRvcDsnPlBhdGllbnQg AtUeWAa5R1TdYbv0IQIt mRliEJ1sbERkYCeaFs9v sXteeKorAS7vYHCg fmtas727VuTjj5ptQJIt pLWyCQiuFUU4Z92fs2H8 TMTfFHZeUAS3nSK4pK4y bGlnbjogbGVmdDsg rmZrbAtjYHnhQFvcB803 IHRvcDsnPkJpcnRoIERh tKK3XO22ME42oBMyv7I6 kUD3V6WnVYBfsqag rmshqVF3KYOvZKImfS21 Mp1zqSqrDe2pHEOpTPX7 PEQyiYBiI4LhxE1gTlMp NRMtAVMcX5UtrFYm QImbB494HAivCvG7ZGAq ogBnR6HyTLHjuHsnUoN2 e0F0Zr3YN3I9OI75IU76 pSAqz2E1fGZ3T3Nz REFjeuckununpGO0MEWs QOLawY94Lm5fgFqqJo7x YNBfURV0JZIxoWAeA5Pa wY3nXoMiWJSaXYJv X4OgpERiQDgpS410BGhs CpZ3QMTgfzEtQ3YuTBZn sJmeRgO6z1D2Pf6GAAf8 WO24PS34oEAdd0F3 iJG8C3GfFGEqowfrusmu dPL3AWHoKTYywJ80Tq0i dNjeFu2eLJSrHSA5UIDp qZBzX5YmqX0wSxHj GGRqZFHcH0WugIGyAGfr W324LVrhMgJ6TCLsogQg R3BxRHGxqGudAoT0k6I6 Mz3CJKOoCL82ACX8 sPU1WM34AT33Z5EjOjnj dGFibGU+PHRhYmxlIHdp ZHRoPScxMDAlJyBzdHls IP0eCk4cTISxRFDu jKubaVRuRaFuv8fjJFLb INezPY9duBnoI3CyjSO5 IZAce0u9Ye45T84bQ4Mp dXA+GKHuwXX5kGK8 cB2gAbAoUmO2NBjoJ239 NuWtpLHiToegk7ohx8ua eQf8AvZ2VDAfdqHwrQxy LLQ0s5BwMh05O50d IHdpZHRoPSIxNSUiIHZh eXdstb1ywA6lRz6+PGNv qJX5qPQ8yA2aLdSjYbM4 OOssO190FfStuRPi Ozgfz9tng1xouCb0XjAa AACrypOjiOorKLA0g3Be Xa69V9CdrZnxi8WaZfo4 ft79xGVvc8F1jGD3 V8XwMRApbcixjVNbgKjk CT1lRSJdpdgjNJXpfL2o IOBmZ0p2HtGmDqY6WAuk Z3KdsyV5SIAsvWMo COewVVI7X43rp3Y1SPIr TBTxFUI0xOQ2sO9coDfz bjogbGVmdDsgdmVydGlj SIjzCMiiJ938SGFb zEjhIMGxuZ6lHYVewQIr gZlbDU5hMWRjepmwBiAF Sh1QLejuS2OUMILPMMUg TTwvdGQ+PHRkIHN0 vWfaPMyfNFLxpB5iLDJt Z7x8WmHhXuK0RHsbZ1Sm VOUxhdduGk26kK6lQwYq EsT9ZYtfP4EoziK2 SDVrcGBwJHglRMZ5Y26p k5P6LKRzWLTyZLF7jUN7 mU4eqHmyvgrreNSfaEcj dmVydGljYWwtYWxp Y063QFFdmJakOiOnAdL6 AqQ7NQm8A3PtUgw6QCNc hEvoQW8tpTLbSRqbBo0n uJhsdWgpDZ9iJMCs ihkuWEXkrX3kAJDokVXe pLndXT7hDMCdwymsk790 UhGjZUH8DRTwlXUkW2Dt mK5aLwRiDCTtVYSo H6PzcRXiWYbhU584DTvt XfP5OBNksfMsC4TxMWVx hCedNaF8g6P0Kb0fTKKW ZWFyczwvdGQ+PHRk JKT4xBqjNIivUGImmF8f ERHpN9a1GvKzWzS3ACli T3KmFESgpfodUb17xI3w UfMgYdF1TRmgT3Hu vrV7AAMdxHYfCRdsSTR4 O49ll2H7PNYkHGLwZWY1 uMO8rP9umNonieguyOFp dDsgdmVydGljYWwt LJtdO004KNAomRqnPhPi bWFsZTwvdGQ+PHRkIHN0 kLtqGWntHIFhyN8qGPSq X2j4YrRsMfB8BIlh I3QeDOSerhaeUw35rQ8y MfDaQyE0KSzjG3NgspF3 DCVtkCOsVLavDTF9S33u m7U9LDDcADZnTNN9 kTG3lM7wdMaslmhobZRp dDsgdmVydGljYWwtYWxp C164ZMQdeWneVnyjZaZQ rm5lFM7jUijrgLU+ HR95hu75G9KzNuoyZzm4 KNCqYZZ6nKQ9pD7xOXLr PByhf6B0fVH5T5KrzcHu bl7fq3ekTAGeVPmj H55cwXDto9K0KPIbeHX0 HAUccLasNsBvfP86Crt+ UELrfQsxr9QpIrqqi4bo y9fdxKt6BqGbZXUr gyGqpGkpAVM0s3KlGl51 N34gGMltSBVwGIPwKVEx FLWfrNoldb9odY6gYs9+ AFIizKB8bTL4qB4t HiTlIwM9TSvaO942MnKo xDSmGsoax7xqq2ucdIj7 IjIwJSIgdmFsaWduPSJ0 n4YyJp31D9EltKix t7DrAwe3ys73cXQcu0L9 xTL3Q7YmCULpyxjvxLWh iGlwHI3lRHKqutdmRCCt mD1iYMXaW2d3LjHu YsN7JTqrR0CdseB4IRKq iVMsQRXerEAPgM5pqfjz k7ecdvxiXwBzEEKvDGr2 IPp2INJmmAicAhDi XZI1YdI7XCR4wPHtxS8r zGjxzwdtrJ3nWas+UGh5 v4opuDDoAW2jrEQ2CE84 MC75zWMgr1F1nEM5 K0MyDRHxjdelbnvawKV8 QGFuGKBfgH17Wu4dfQqu Xe7dVWDxEND0BXOtsVSq S3HteN5iUoWsXAAh SRZfI4KfdPIaJOqmS172 EZpqAqY0ONNhbqIfU1Ye LDThtQcmEnV2s6J7Pf5S KC01AI63AF56fVPg j9Y7zHC2Z7RvTHRaqzjx xfoujMG9KEScDIIsrH83 Tj2ngJpwSi3jHMAjESD0 OWWwaTEfB0KobC7x VaPfHRSsOEKaN9LrsGOi YUskF550WEkcJvI8WYEq whEtJ2NzURMxmVotNmO2 s9X8Xo3VWk00TJ23 KZ81mSFwu6M2cAH1O3Zw SAWkwskaxggnbDE8MRGb BFIqbF17Dt8lvFxfZz6x ZYKoHZV5XKOllRCq G7KaiT2pYzVmYRNbZXLt H0ZxhGVgVBwqJ386UZnc OwS8RDPfuyZiG2MxXRVl kQuoXtX7z7E9Kn5N ZXjxggm8O2IaXpcqwVT+ SN78HVAdVM41jJJpiQPh y0qcvSd4PgSxTGBjQCW5 tKbtTWyyh3CrORXr Y29s (more content not included)... Normal [facility] Strep by PCRon 05-08 Group B Strep colonization by PCR Negative Normal Negative [facility] Comment on above: Performed By: #### 4 [id number] ####[facility] [address] [place] [address] Physician Orderon 05-07-2022 Physician Order [id number] 7#1.00CD:127 Normal [facility] Physician Order [id number] 6#1.00CD:127 Normal [facility] Coding Summary.on 03-06-2022 Coding Summary. CD:[id number] Gh0bWw+PGhlYWQ+PE1FV YRbQ95jcMRlcH2VM1uFS R7ZUNHMBHMUDR3RGO6xt PI5JKzuC1AvsqRp YeazgECnDP08PGm0RRG9 fEiiTTrheA5ikHTwL6z5 OkSsJV04bI25LHtwDADe FvK1EwUsyndlbSUo D8wxQdCjrSOlKjp+PHRh YmxlIHdpZHRoPScxMDAl GzAnmIvwYW1zRm6nRYHj LWNvbGxhcHNlOiBj t0xfYRHnCCigTW2bfZoq E5EddDO7BSXcz2f8Jb08 dHI+BCIiYIL4vKkoUUlv q873VuVnf8luEBA7 rNCgWZimWND8M22yg4P4 CHEiOMXxQCN6oOW6xX8g aBwsjjixH8GmkICaVkF0 IEN2sLDxiM7vnFzu wbukiU0pRuq+K52QWM7I QJSQIL2DGub5K0EjQxch dHI+FT53VSGhBR60qZHp nISjl2vghWt4LeCx QJGbKPQ2hHdlKSxfu7Ru IIJbD76rjQZov5C9SVPy fGhhnSKiMvYdhOV5yL6p WYavojajv8zvgkgs Ockdv2ydfn93kX68Y36q GHozUHLxKGR2ABMaCWRv wNrmzh4dwR2sMu8+IDxj v7oks5izcXm6VjRw DIUckaAgaXvfKQF4w7Ab Eg00Y5HslTflg3RlDca8 rf37zNDqv1S1hSH7IQdz JOYgvJ1yCRvbMoA9 ZASpXuOsdW04pQPmMLab Xj0jdEswuJapNF4yVRQg gcryDKEmhB2yHJIquOEt fUqpIU1jXCKltxbi o371VnJdJFV7WHHhdZLt E1EooR1nBaJlWFHcFQPc L6LxoIFgYDhyV503OElc YqJ2VSBdhgZdQ8Xf CYGyeHxyLwS7l4D0Kf2P k1JytujsQDQ2SFwxMNM8 SqTtHfBkVfK4L0YkLio3 YTMmlMdjBO3gN6Hs DYComzwtwrqbvAS9NHXi DJXstA18nMDuEGtzHa3q i9K5p949YOUdRHZkmU77 Qm4nnIdsDLGfzHXA aV6dlcnpy9gpafxsOxVp SKUaYOy2OBa4GQZruIyy NyFbXQX0BhI4MKP4cSYf uN2maJinjvycbN6y Oyc+P47uyD6fJNM3IST6 emiuMDIhsoQpWD02CS00 J3WgVjvbvAYayTO+PGRp nhJntCgkHK3jFcYb h6swn7KnYFglL8QrFOQi ZOxaXzb4SULiOOQ9jSS7 pQ3wTZDoVFfzy2Z4eSN3 N7LbsaQdlw6vu0ir IKAiYTlaH72maRAbo1O0 XDMrqBO8PHLnjUmqWzXw zN29Mqo+PNWubKqne5Se Rohmp9aas3kkqQk9 IjMwJSIgdmFsaWduPSJ0 v0DhQi36D32cVYzsKLTk MMDmQSOfOGLljLqndv4s uK3uRk3+PGNvbCB3 nIF7yD5lRKEnNwD6YVcy S715WzHctXXmMzcbv8as c7gudLg1HyZeIOKktyXq kSwnPYP2u9YnCa31 M70qQHqwWULtVICyCTCg EAKciBovbt8ioW6eAv3+ GE0pa5tixp43wM80aAS+ JDCvCKK1hUdwSXbn GDJhgT2eKYfuVwI0GAJg VhVehO03pVUsTYvfLw8b uPowsCmuEL1xUKPjfkxu a565BfFzm1oxPZJz cCMdVVgdCZW7Y20qg1K0 TLLcTLDdGOG7fCP9kH2w bGlnbjogbGVmdDsgdmVy vJkoVQfxEQotI523 IHRvcDsnPlBhdGllbnQg LhIuLLx4C1LbOtg7ZYZv uJlmMU4izYRkTDjjRq2q zVwkyIhrVB7kWEEo mbeig278BwBds9klDQDy mLItRTgkJSV7M20ez6R5 VMYlULYoQLE0nWE1yY5i bGlnbjogbGVmdDsg gsCtcOunGPvzRZjiG558 IHRvcDsnPkJpcnRoIERh vZJ2TN47LN89aGTaa5L7 pXB8M5VvAUJyoyxm maptyIX2YEFvOXQifW70 Yo6ueDwdXv7pAVDvSHY5 AVHmhABtA6WydG9vElGl CWPxUVExP8FtaJGd TTnjZ319BFviVsU2ULWn ypIhG3ApUTPtuTiwAmD4 p4J5Hn9WZ4D6SL09EI46 vLUqp4N3pJK0J8Fm TELonnjmvkynvXT5OEAn QWHcmV91Eb1lrFyqRp6x OHDkARP5YPJsaJPfV4Em nC6hBmFgYRAdBBNe X1LhjYBcSXnqT399GBwp RqT0TBPlusHsZ4PyTRDn fLmyHjU4a1H5Eg5XMLb5 UH60YD35oRVvk0L1 dWD1I4NrIJRnivdcsmzy yVX2EPMvMKQjjW99Zw6c fWyrKi3dEGVeMXR9NWVu qOXfQ9AliZ3cQfVb CBGgTVBxG1VfiYNuMXyx L812VBpaUbP4KBVamiGd A7VrUWGvwXqmQsV0z4F8 Qj7XWVJyVU23DAV1 bTX7VC38FK95Q7JaXsyt dGFibGU+PHRhYmxlIHdp ZHRoPScxMDAlJyBzdHls JZ7xJq6cBASeRBLx qLyqwKLbGbMpm9hfBSKr UHrhXH0agHmjN1DkzXY0 WGAbt4e0Yc47X31qE1Ju dXA+CVJwlLA6qIQ1 hI8jMfGuBcJ3NIokY604 BkVpeRJtKtfch5zhs2wa tHs5CvH6JAFcdfHohRzt UAN1e4IiJd27Q63s IHdpZHRoPSIxNSUiIHZh qYitfz5fyN1zZu0+PGNv nFX3yIT7tR8rUtWkXcN0 EMwbH643ZjIjhIXv Esrja6dlu2ukfNt2QxGs AALpdfWxfSglDLJ5n3Hh Jd20E0ZilYvhq3YwLcl9 ea15tXRli7I0kHA0 L2BcOWLepuvhcKXxzMfi OM4zKRPonablHXKoiP1i LNZhI2m9FjJeRnI9FCph H0BndlP2BGCeoISi FUhmDYG4N01hz4J8QSQi CUBxWCW0bYK3yW2bdLpw bjogbGVmdDsgdmVydGlj YVhaSYfhR128QQYs dFbfPFFkxN2bNINuyDJs zLtgUR0gTBJkfyscHnIV Og7EPqjpW1UCCYPXWVTp TTwvdGQ+PHRkIHN0 oHnyFXcfKENqwU4gFZRk H2x4XfYyHeB4LEayQ5Cc KTEtszctYk08cI4yXtRi NxC0SLizD0JwloC5 DUYaeCCuBTrzCOZ3B99f u7R6OJKqZKMxZRP5dBZ7 cK4ssHswadvcrJHunFgs dmVydGljYWwtYWxp T541RYJxrCjcItMqEuN4 PtZ8QLh2C4WxVcf2YIYa gAmsCI0dgVJdJLryIb7x qQymzGmxZJ9qXCWc wytyCEWupF0dXHBkqRCg lNitPE3wJQAbgenxv647 PoGjRMG6VJPflFFyC3Sy vD4bIdVcKAOnSQDg G5TwcOAhCJtpI269VQrx XfT2KZSnsdYtW2QtFHJl xVonYyM8x9L4By0xYXKB ZWFyczwvdGQ+PHRk YFG8gMvlXYbkSMWpnZ8b YFIzF1v8IsUeLoJ1XOjc K7GeRVIfwxfgEx17gM9o TcKuFuY3OAcaX8Qa eeH6MQJhiJYaOFksTUU1 Z25ts1D7GCUrWGSnZZE2 pOV0lY1lgZspemyprPYs dDsgdmVydGljYWwt FGixM972YYTxwQucJyCu bWFsZTwvdGQ+PHRkIHN0 aVmlDVpjHQVkjK7iTHBb K4z5QaLeStG5CZzv X4CqCVNxbbjqGh58zF7s UvWbGcO6XYxvE9IcicV3 OUSxkCQaUSomRZA1H04y v5R7NHCtDPJzWJV1 rBZ4tE9rmBnbujhmdVJl dDsgdmVydGljYWwtYWxp E593SGUbgHexVs88fUUj bYircuL7O1PpPxap dHI+TF56VQRzDP60aKZa pGKnc4jsaEm2MvSuZTLn XRL9kUlwDMzrm2ZoULNj K82svSLql3H0UMEh mIsgoZObPrRwtDI0yA7p VHnrsgxdl3dabgrrHvoy x3mzpf93uF98Q60eRSbc ZHRoPSIzMCUiIHZh kUexxi0prX3tYa8+PGNv kBJ5nGV2hL7gGwQxJxI2 HJdeO916ShJekJHxGqht f6whu1vxwBq3JoVj TAUhviThjAqfJDK2e1Xv Qy21C25oALvaLFHqEMXr QIXpBSCifVjbvm4icH5e Ii8+UX8rh8jjle07 bM87zIC+GKJjQQU4aIpe SMbiEHDsiG8dNBkoIjM3 XJPnYbAabB38cVWdRPmi Fz1rjJsesRzrTL7a ZBNhksdok896BiIay6mx KIZwuPEmGHjiPNY6I97o i6K1WMMeAPIwFCH5xGS2 wZ5zgHmdgrbnrYYe dDsgdmVydGljYWwtYWxp Y822CYEcfZwuGbGtnDJn M6hevfNGSO7wImihjPP+ DPNtNJE5cVdfLKwe GNYfjU4wIZQyL7d2OnIn YnQ0BLmuL4FeajF2EWRk uAVrYIBseZTYtX5sugmv i2rznvhbKkWwGCZw SQk5LIc1JVLweXhtPgLf EPX6EwO5QEL9yTGohW2j rRnemzdinX6zMip+RklO OjwvdGQ+PHRkIHN0 yNagGNgtTWFgbN4uCMOw V0r8XdTuPlZ6UXkvJ6Fe kkC9LDNexSXbSWNwlOFB cM7tnefew1xlhfkt JzHgURKnGMq3QCk5QDDz qAlaVwCzROE1JkN0TXR4 cQBbeI5juCdzslopnO2v Oyc+TVJOOjwvdGQ+ XGTsCJL9tPygIYdvDZQi kL2rIYWbP9m8YhPlOhG1 WLvxV6VhaxQ5EWBssLTg OFScsJCFsA6ucdba g7nygrggVbQsRPCuRZw0 COv9DIPkaIcpVnOoOEB2 ZjK4FZP9fWWkpO9drJwl hkvykU7rEzo+UGF5 QBO4VQ47WX57O6VbTbsb dGFibGU+PHRhYmxlIHdp ZHRoPScxMDAlJyBzdHls AP6mEd7pCYOaBMKy bGxh (more content not included)... Normal [facility] RPR with Conf Rfxon 02-25-20 22 Reagin Ab RPR Ql (S) Non-Reactive Invalid Interpretation Code Non Reactive [facility] Comment on above: Result Comment: Perf ormed at: [facility] [address] [id number] PhD Ed Yeboah Performed By: #### 1 [id number] ####[facility] [address] [place] [address] Consent for Treatmenton Consent for Treatment [id number] 20 [id number] #1.00CD:127 Normal [facility] Gest Scr Glu 1 Hron 02-23-20 22 Glucose [Mass/Vol] 121 mg/dL Normal 55-140 [facility] Comment on above: Result Comment: Posi tive Screen =1 HR > 140mg/dL Performed By: #### 1 [id number] ####[facility] [address] [place] [address] Hct & Hgbon 02-22-2022 Hematocrit (Bld) [Volume fraction] 33.3 % Low 34.0-46.0 [facility] Comment on above: Performed By: #### 1 [id number] ####[facility] [address] [place] [address] Hemoglobin (Bld) [Mass/Vol] 11.6 g/dL Low 12.0-16.0 [facility] Comment on above: Performed By: #### 1 [id number] ####[facility] [address] [place] [address] Physician Orderon 02-22-2022 Physician Order [id number] #1.00CD:127 Normal [facility] Vital Signs Date Time Vital Sign Value Performing Clinician Facility 07-15-2024 09:40-0400 Body mass index (BMI) [Ratio] 38.11 kg/m2 Earl Reji awe.sm Work Phone: [facility] 07-15-2024 09:40-0400 Body weight 97.58 kg Earl Reji DO Work Phone: [facility] 07-15-2024 09:40-0400 Diastolic blood pressure 74 mm[Hg] Earl Reji DO Work Phone: [facility] 07-15-2024 09:40-0400 Systolic blood pressure 112 mm[Hg] Earl Reji DO Work Phone: [facility] 12-31-2023 10:56-0500 Body mass index (BMI) [Ratio] 34.51 kg/m2 Maame BARR Work Phone: [facility] 12-31-2023 10:56-0500 Body weight 88.36 kg Maame BARR Work Phone: [facility] 12-31-2023 10:56-0500 Diastolic blood pressure 56 mm[Hg] Maame BARR Work Phone: [facility] 12-31-2023 10:56-0500 Systolic blood pressure 108 mm[Hg] Maame BARR Work Phone: [facility] 05-31-2022 15:01-0400 [employer] Devin Pereira [facility] Comment on above: Result Comment: discharge instructions g kristian 05-31-2022 14:36-0400 [employer] Devin Pereira [facility] Comment on above: 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 05-31-2022 13:00-0400 Hourly Rounding Devin Pereira [facility] 05-31-2022 09:24-0400 Body temperature 98.06 [degF] Devin Pereira [facility] 05-31-2022 09:24-0400 Diastolic blood pressure 73 mm[Hg] Devin Pereira [facility] 05-31-2022 09:24-0400 Heart rate 49 /min Devin Pereira [facility] 05-31-2022 09:24-0400 Mean blood pressure 90 mm[Hg] Devin Pereira [facility] 05-31-2022 09:24-0400 Systolic blood pressure 125 mm[Hg] Devin Pereira [facility] 05-31-2022 09:24-0400 Blood Pressure Location Devin Pereira [facility] 05-31-2022 09:24-0400 Mean blood pressure 90 mm[Hg] Devin Pereira [facility] 05-31-2022 09:24-0400 Respiratory rate 15 /min Devin Pereira [facility] 05-30-2022 20:40-0400 Body temperature 98.24 [degF] Devin Pereira [facility] 05-30-2022 20:40-0400 Diastolic blood pressure 72 mm[Hg] Devin Pereira [facility] 05-30-2022 20:40-0400 Heart rate 61 /min Devin Pereira [facility] 05-30-2022 20:40-0400 Mean blood pressure 86 mm[Hg] Devin Pereira [facility] 05-30-2022 20:40-0400 SaO2% (BldA) [Mass fraction] 97 % Devin Pereira [facility] 05-30-2022 20:40-0400 Systolic blood pressure 113 mm[Hg] Devin Pereira [facility] 05-30-2022 20:40-0400 Mean blood pressure 86 mm[Hg] Devin Pereira [facility] 05-30-2022 14:51-0400 Body temperature 98.24 [degF] Devin Pereira [facility] 05-30-2022 14:51-0400 Diastolic blood pressure 70 mm[Hg] Devin Pereira [facility] 05-30-2022 14:51-0400 Heart rate 52 /min Devin Pereira [facility] 05-30-2022 14:51-0400 Mean blood pressure 84 mm[Hg] Devin Pereira [facility] 05-30-2022 14:51-0400 Systolic blood pressure 114 mm[Hg] Devin Pereira [facility] 05-30-2022 14:51-0400 Blood Pressure Location Devin Pereira [facility] 05-30-2022 14:51-0400 Respiratory rate 16 /min Devin Pereira [facility] 05-30-2022 14:45-0400 Blood Pressure Location Devin Pereira [facility] 05-30-2022 14:45-0400 Respiratory rate 16 /min Devin Pereira [facility] 05-30-2022 08:00-0400 SaO2% (BldA) [Mass fraction] 98 % Devin Pereira [facility] 05-30-2022 08:00-0400 Mean blood pressure 111 mm[Hg] Devin Pereira [facility] 05-28-2022 16:40-0400 Hourly Rounding Devin Pereira [facility] Comment on above: Result Comment: Patient declines vaginal exam due to expressing not having any pain or noticable contractions. RN notes decline. 05-28-2022 16:00-0400 Hourly Rounding Devin Pereira [facility] Comment on above: Result Comment: Discharge instructions g iven and educated to come to hospital tomorrow at 1700 for induction. Educated on induction process and what inductions intail. RN answers questions from patient. Patient voices no concerns and agrees. 05-28-2022 15:00-0400 Hourly Rounding Devin Pereira [facility] Comment on above: Result Comment: patient resting watching tv with fiance in room. 05-28-2022 15:00-0400 Promise to Return Devin Pereira [facility] 05-28-2022 14:45-0400 Blood Pressure Location Devin Pereira [facility] 05-28-2022 14:45-0400 Body temperature 98.06 [degF] Devin Lorenzoten [facility] 05-28-2022 14:45-0400 Diastolic blood pressure 54 mm[Hg] Devin Lorenzoten [facility] 05-28-2022 14:45-0400 Heart rate 64 /min Devin Lorenzoten [facility] 05-28-2022 14:45-0400 Mean blood pressure 68 mm[Hg] Devin Lorenzoten [facility] 05-28-2022 14:45-0400 Respiratory rate 16 /min Devin Lorenzoten [facility] 05-28-2022 14:45-0400 Systolic blood pressure 97 mm[Hg] Devin Lorenzoten [facility] 05-28-2022 14:00-0400 Promise to Return Devin Pereira [facility] 05-28-2022 13:00-0400 Promise to Return Devin Pereira [facility] 05-28-2022 12:00-0400 Diastolic blood pressure 53 mm[Hg] Devin Lorenzoten [facility] 05-28-2022 12:00-0400 Heart rate 50 /min Devin Lorenzoten [facility] 05-28-2022 12:00-0400 Mean blood pressure 66 mm[Hg] Devin Lorenzoten [facility] 05-28-2022 12:00-0400 Systolic blood pressure 91 mm[Hg] Devin Lorenzoten [facility] 05-28-2022 08:47-0400 Body temperature 97.7 [degF] Devin Lorenzoten [facility] 05-28-2022 08:47-0400 Diastolic blood pressure 59 mm[Hg] Devin Pereira [facility] 05-28-2022 08:47-0400 Heart rate 64 /min Devin Pereira [facility] 05-28-2022 08:47-0400 Mean blood pressure 74 mm[Hg] Devin Pereira [facility] 05-28-2022 08:47-0400 Respiratory rate 18 /min Devin Pereira [facility] 05-28-2022 08:47-0400 Systolic blood pressure 103 mm[Hg] Devin Pereira [facility] 05-28-2022 08:45-0400 Blood Pressure Location Devin Pereira [facility] Encounters Encounter Date Encounter Type Care Provider Facility Start: 01-05-2025 End: 01-05-2025 Bamboo flowsheet Maame BARR Work Phone: [facility] Start: 01-05-2025 End: 01-05-2025 Bamboo flowsheet Maame BARR Work Phone: [facility] Start: 07-15-2024 End: 07-15-2024 flow sheet Earl Reji DO Work Phone: [facility] Comment on above: 6 weeks f ollow-up Start: 07-15-2024 End: 07-15-2024 ambulatory EARL REJI Not Available Start: 06-01-2024 End: 06-01-2024 ambulatory EARL REJI Not Available Start: 05-25-2024 End: 05-25-2024 ambulatory EARL REJI Not Available Start: 05-18-2024 End: 05-18-2024 ambulatory EARL REJI Not Available Start: 05-12-2024 End: 05-12-2024 ambulatory EARL REJI Not Available Start: 04-27-2024 End: 04-27-2024 ambulatory MAAME BITA Not Available Start: 04-06-2024 End: 04-06-2024 ambulatory MAAME SUNSHINE Not Available Start: 03-23-2024 End: 03-23-2024 ambulatory EARL REJI Not Available Start: 03-02-2024 End: 03-02-2024 ambulatory MAAME SUNSHINE Not Available Start: 01-27-2024 End: 01-27-2024 ambulatory EARL REJI Not Available Start: 12-31-2023 Clinisync Result Encounter [...] discharge Start: 12-02-2023 End: 12-02-2023 ambulatory EARL REJI Not Available Start: 11-06-2023 End: 11-06-2023 ambulatory EARL REJI Not Available Start: 12-18-2022 End: 12-19-2022 ambulatory Kaelyn X Orzech Facility[place] Start: 12-18-2022 End: 12-18-2022 Patient encounter procedure Kaelyn X Orzech [facility] Start: 12-04-2022 End: 12-05-2022 ambulatory Kaelyn X Orzech Facility:[facility] Start: 12-04-2022 End: 12-04-2022 Patient encounter procedure Kaelyn X Orjacquelynch [facility] Start: 11-28-2022 End: 11-29-2022 ambulatory Kaelyn X Orzech Facility: [facility] Start: 07-11-2022 End: 07-12-2022 ambulatory eDvin Pereira Facility:[facility] Start: 07-11-2022 End: 07-11-2022 Lab Drop off Deivn Pereira [facility] Start: 05-29-2022 End: 05-31-2022 Evaluation and management of inpatient Devin Pereira Facility:[facility] Start: 05-29-2022 End: 05-31-2022 Evaluation and management of inpatient Devin Pereira [facility] Start: 05-28-2022 End: 05-28-2022 ambulatory Devin Pereira Facility:[facility] [place] Start: 05-28-2022 End: 05-28-2022 OB Triage Devin Pereira [facility] Start: 05-21-2022 End: 06-24-2022 Pre-admission assessment Devin Pereira [facility] Start: 05-07-2022 End: 05-08-2022 ambulatory Devin Pereira Facility:[facility] [place] Start: 05-07-2022 End: 05-08-2022 ambulatory Devin Pereira Facility:[facility] [place] Start: 05-07-2022 End: 05-07-2022 Lab Drop off Devin Pereira [facility] Start: 02-22-2022 End: 02-23-2022 ambulatory Devin Pereira Facility:[facility] [place] Procedures Date Procedure Procedure Detail Performing Clinician Start: 02-07-2024 URETHRITIS/DISCHARGE PLUS VAGINITIS (HTRX) Maame BARR Work Phone: Start: 12-31-2023 Urnls dip stick/tabl et rgnt non-auto w/o micrscp Maame BARR Work Phone: Start: 12-31-2023 IGP,APTIMA HPV,AGE GDLN Maame BARR Work Phone: Plan of Treatment Date Care Activity Detail Author Start: 01-05-2025 End: 01-05-2025 Patient encounter procedure [facility] Comment on above: Arrived Start: 01-27-2024 End: 01-27-2024 Patient encounter procedure 01/27/2024 9:50 AM EST Routine [facility] [address] [facility] [place] [id number] Earl Mendoza, DO [address] [place] [address] [facility] Start: 01-27-2024 End: 01-27-2024 Professional / ancillary services management 01/27/2024 9:00 AM EST Ancillary Procedure [facility] [address] [place] [id number] [facility] Start: 12-31-2023 End: 12-31-2024 Alpha fetoprotein, maternal Alpha fetoprotein, maternal Lab Routine Second trimester Expected: 12/31/2023 (Approximate), Expires: 12/31/2024 [facility] Comment on above: Expected: 12/31/2023 (Approximate), Expires: 12/31/2024 Start: 12-31-2023 End: 12-31-2024 US for US OB ANATOMY SINGLE W US OB CERVICAL LENGTH Imaging Routine Screening, , for anatomic survey Expected: 12/31/2023 (Approximate), Expires: 12/31/2024 [facility] Comment on above: Expected: 12/31/2023 (Approximate), Expires: 12/31/2024 CHLAMYDIA TRACHOMATI S (GENITO/STI) CHLAMYDIA TRACHOMATIS (GENITO/STI) Lab Routine Exposure to STD Ordered: 12/31/2023 [facility] [employer] Comment on above: Ordered: 12/31/2023 Cytology Cervical or vaginal smear or scraping study Pap Smear Pathology and Cytology Routine Well woman exam with routine gynecological exam Ordered: 12/31/2023 [facility] Comment on above: Ordered: 12/31/2023 Neisseria gonorrhoea e DNA [Presence] in Unspecified specimen by JAYDON with probe detection Neisseria gonorrhea DNA probe, direct Lab Routine Exposure to STD Ordered: 12/31/2023 [facility] Comment on above: Ordered: 12/31/2023 SURESWAB(R) ADVANCED VAGINITIS PLUS, TMA SURESWAB(R) ADVANCED VAGINITIS PLUS, TMA Pathology and Cytology Routine Vaginal discharge Ordered: 12/31/2023 [facility] [employer] Work Phone: Comment on above: Ordered: 12/31/2023 Immunizations Immunization Date Immunization Notes Care Provider Shaun [email or web address] 01-18-2013 hepatitis A vaccine, unspecified formulation [facility] 09-12-2010 meningococcal ACWY vaccine, unspecified formulation [facility] 09-12-2010 tetanus toxoid, reduced diphtheria toxoid, and acellular pertussis vaccine, adsorbed [facility] 02-23-2003 DTaP, unspecified formulation [facility] 02-23-2003 measles, mumps and rubella virus vaccine [employer] [facility] 02-23-2003 poliovirus vaccine, unspecified formulation [facility] 06-27-1999 hepatitis B vaccine, pediatric or pediatric/adolescent dosage [facility] NEGATED: Highlighted row has not occurred!11-28-2022 influenza virus vaccine, unspecified formulation [facility] NEGATED: Highlighted row has not occurred!11-28-2022 SARS-CoV-2 mRNA (carolnamelena 5y-11y) vaccine Kaelyn Rodriguez [facility] Payers Date Payer Category Payer Private Health Insurance [id number] 2022 Private Health Insurance [id number] 2020 Private Health Insurance [id number] 1997 Unknown [id number] 2.16.8 40.1.509485.3.579.2.727 1997 Unknown [id number] 2.16.8 40.1.718413.3.579.2.727 1997 Unknown [id number] 2.16.8 40.1.939012.3.579.2.727 1997 Unknown [id number] 2.16.8 40.1.846211.3.579.2.727 1997 Unknown [id number] 2.16.8 40.1.066819.3.579.2.727 1997 Unknown [id number] 2.16.8 40.1.935238.3.579.2.727 1997 Unknown [id number] 2.16.8 40.1.701308.3.579.2.727 1997 Unknown [id number] 2.16.8 40.1.399386.3.579.2.727 1997 Unknown [id number] 2.16.8 40.1.851727.3.579.2.727 1997 Unknown [id number] 2.16.84 0.1.286330.3.579.2.1259 1997 Unknown [id number] 2.16.84 0.1.292028.3.579.2.1259 1997 Unknown [id number] 2.16.84 0.1.805772.3.579.2.1259 1997 Unknown [id number] 2.16.84 0.1.755759.3.579.2.9 1997 Unknown [id number] 2.16.84 0.1.325105.3.579.2.1259 1997 Unknown [id number] 2.16.84 0.1.454268.3.579.2.9 1997 Unknown [id number] 2.16.84 0.1.464438.3.579.2.1259 1997 Unknown [id number] 2.16.84 0.1.506656.3.579.2.9 1997 Unknown [id number] 2.16.84 0.1.709197.3.579.2.9 1997 Unknown [id number] 2.16.84 0.1.359213.3.579.2.9 1997 Unknown [id number] 2.16.84 0.1.098361.3.579.2.1259 1997 Unknown [id number] 2.16.84 0.1.358826.3.579.2.9 1997 Unknown [id number] 2.16.840 .1.452850.3.579.2.9 Social History Date Type Detail Facility Tobacco smoking status No Smokin g Status Entered [facility] Start: 12-02-2023 End: 05-12-2024 Sex Assigned At Female [facility] Start: 11-28-2022 End: 05-12-2024 Tobacco smoking status Never smoked tobacco (finding) [facility] Tobacco smoking status Never [facility] Start: 12-31-2023 Alcohol intake Current drinke r of alcohol (finding) [facility] Start: 12-02-2023 End: 05-12-2024 History of Social function [facility] Start: 12-02-2023 Alcohol Comment caffeine: coff ee in the am [facility] Start: 09-17-2023 [facility] Start: 1995 [facility] Start: 10-02-2023 Gender identity Identifies as female gender (finding) [facility] Start: 05-12-2024 Tobacco use and exposure Smokeless tobacco non-user [facility] Start: 07-15-2024 End: 09-01-2024 Alcoholic beverage intake Ex-drinker (finding) [facility] Start: 05-12-2024 Tobacco Comment My mother used to smoke in the house when i was growing up [facility] Start: 05-12-2024 Alcohol Comment Drinking was a rare occurrence for me. Maybe once or twice a [facility] Functional Status Date Assessment Result Facility 05-29-2022 Functional Status No [facility] 05-28-2022 Functional Status N/A [facility] Clinical Notes 05-07-2022 to 07-15-2024 Lilly Draper LPN - 07/15/2024 9:30 AM [facility] - 12/31/2023 10:30 AM EST Note Date & Type Note Facility 07-15-2024 History of Present illness Narrative Reason for Appointment: Patient ID: Adonay Hartley is a 28 y.o. female who presents for Care Patient presents today for Post Follow Up appointment. MEDICATIONS Current Outpatient Medications Medication Instructions cholecalciferol (VITAMIN D-3) 2,000 Units, Oral, Daily Njqkowdi-Del-Qo-FA ( 1 + IRON PO) Oral ALLERGIES No Known Allergies PROBLEMS Active Ambulatory Problems Diagnosis Date Noted No Active Ambulatory Problems Resolved Ambulatory Problems Diagnosis Date Noted No Resolved Ambulatory Problems Past Medical History: Diagnosis Date History of medical problems Polycystic ovary syndrome HISTORY PAST MEDICAL HISTORY SOCIAL HISTORY Past Medical History: Diagnosis Date History of medical problems DNA Polycystic ovary syndrome Social History Tobacco Use Smoking status: Never Smokeless tobacco: Never Tobacco comments: My mother used to smoke in the house when i was growing up Substance Use Topics Alcohol use: Not Currently Alcohol/week: 1.0 standard drink of alcohol Types: 1 Shots of liquor per week Comment: Drinking was a rare occurrence for me. Maybe once or twice a Drug use: Never FAMILY HISTORY Family History Problem Relation Name Age of Onset Cancer Mother Radha Partida Cancer Maternal Grandmother SURGICAL HISTORY History reviewed. No pertinent surgical history. REVIEW OF SYSTEMS Review of Systems: Review of Systems All other systems reviewed and are negative. OBJECTIVE Objective: Physical Exam Constitutional: Appearance: Normal appearance. She is well-developed. Cardiovascular: Rate and Rhythm: Normal rate and regular rhythm. Pulmonary: Effort: Pulmonary effort is normal. Breath sounds: Normal breath sounds. Abdominal: General: Bowel sounds are normal. There is no distension. Palpations: Abdomen is soft. Tenderness: There is no abdominal tenderness. There is no guarding or rebound. Musculoskeletal: General: No swelling. Normal range of motion. Right lower leg: No edema. Left lower leg: No edema. Neurological: Mental Status: She is alert and oriented to person, place, and time. Skin: General: Skin is warm and dry. Psychiatric: Mood and Affect: Mood normal. Behavior: Behavior normal. Vitals and nursing note reviewed. Exam conducted with a manager gyn present. Vitals: Estimated body mass index is 38.11 kg/m as calculated from the following: Height as of 05/19/20: 5' 3 . Weight as of this encounter: 215 lb 1.9 oz. BP: 112/74 Patient's last menstrual period was 09/03/2023. ASSESSMENT & PLAN ICD-10-CM 1. 6 weeks follow-up Z39.2 Post Follow Up: Patient is doing well with no complaints. Patient presents today for 6 week visit. delivery. Patient denies depression and is doing well mentally. All options were discussed with the patient regarding control and patient desires none at this time. Patient voiced that her spouse is going to schedule a vasectomy. Patient is currently . Follow Up: Patient is to return for annual unless needed otherwise. Documented by Lilly Draper LPN on behalf of: Earl Mendoza DO documented in this encounter [facility] 12-31-2023 History of Present illness Narrative Reason for Appointment: Patient ID: Adonay Hartley is a 28 y.o. female who presents for Routine Visit Patient presents today for Annual Exam appointment. Patient presents today for a routine obstetrics appointment. Patient is currently 17w0d with a Estimated Date of Delivery: 06/09/24. Current Medications: has a current medication list which includes the following prescription(s): cholecalciferol and xwbkyung-lpf-qy-fa. Medical History: Active Ambulatory Problems Diagnosis Date [...] nursing note reviewed. Exam conducted with a manager gyn present. Vitals: Estimated body mass index is [...] obtained without difficulty and patient was given msAFP order to have obtained. Follow Up: Patient is to return to our office in 4 weeks for routine OB appointment Documented by Ada Hollis LPN on behalf of: CORTNEY Ospina documented in this encounter [facility] 06-04-2022 Note DATE OF DISCHARGE: 0 [...] complication. Devin Pereira M.D. eran Dictated: 06/03/2022 [id number] Transcribed: 06/03/2022 [facility] Comment on above: Result Comment: Elec tronically Signed By: Kelli DEMPSEY, Devin Collier\.br\Date and Time Signed: 06/04/22 08:08 EDT 05-31-2022 Note The following Patien t Education Materials have been given to the patient: EducationMaterial [facility] 05-31-2022 Note HOSPITAL REGULATIONS : All Positive [...] for details. Devin Pereira M.D. Dictated: 05/31/2022 [id number] Transcribed: 05/31/2022 [facility] Comment on above: Result Comment: Elec tronically Signed By: Kelli DEMPSEY, Devin Collier\.br\Date and Time Signed: 05/31/22 09:16 EDT 05-30-2022 Evaluation + Plan note Extrac noy from: Title:Post-LDE Author:Jose Miguel Garcia Jr., DO ate:05/30/22 Plan Transfer/ Discharge: Condition stable. Extracted from: Title:L&D Epidural note Author:Omaira Garcia Jr., DO Date:05/29/22 Impression and Plan Plan Labor epidural at request of patient.. [facility]07-06-2022 Hospital Discharge instructions Follow Up Care 05/29/2022 07:05:03 With:Dr. Pereira [phone] Address:Unknown When:6 weeks Comments:Call for any problems. [facility] fever>100.5 F, heavy bleeding With: Services [phone] Address:Unknown When:06/03/2022 14:00:00 [facility]07-05-2022 NoteThe following Patient Education Materials have been given to the patient: [facility] Discharge instructions Follow Up Care 05/28/2022 08:38:04 With:Devin Pereira Address: [facility] [place] [address] [phone]- Business (1) When:05/29/2022 17:00:00 Comments:Call for any problems.Return for contractions closer, longer, and harder.Return for decreased fetalmovement.Return if ruptured membranes or vaginal bleeding. [place] [address]-14-2022 Evaluation + Plan note Diagnostic Tests Pending * Group B Streptococcus colonization by PCR [facility] Future [facility]uled Tests Radiology* US Abdomen, Limited [facility] Diagnosis Second trimester state, incidental Screening, , for anatomic survey Encounter for anatomic survey Well woman exam with routine gynecological exam Routine gynecological examination Exposure to STD Vaginal discharge Leukorrhea, not specified as infective documented in this encounter [facility]* Diagnosis 6 weeks follow-up [facility] N[facility] No data available for this section [facility] No data available for this section [facility] No data available for this section [facility] Summary Purpose Family History No Family History Records FoundNo Family History Records Found Advance Directives No Advanced Directives Records FoundNo Advanced Directives Records Found Additional Source Comments Care Team (unrecognized sect ion and content) Software Writer Relationship Specialty Start Date End Date Corbin Henley MD [address] [place] [phone] PCP - General 10/30/23 Software Writer Relationship Specialty Start Date End Date Corbin Henley [place] [address] [place] [address] PCP - General 10/30/23 Software Writer Relationship Specialty Start Date End Date Corbin Henley MD [address] [place] [phone] PCP - General 10/30/23 Software Writer Relationship Specialty Start Date End Date Corbin Henley MD [address] [place] [phone] PCP - General 10/30/23 INFORMATION SOURCE (unrecogn ized section and content) DATE CREATED AUTHOR 12/27/2022 Elio Meier [facility] DATE CREATED AUTHOR AUTHOR'S LUIS QUIGLEY 07/17/2024 [facility] EPIC Reason for Visit (unrecogniz ed section and content) Reason Comments Routine Visit Reason Comments Care FOR RECORDS PERTAINING TO PATIENTS WHO ARE [...] BE BASED ON THE PRIMARY CLINICAL RECORDS. [employer] provides no warranty or guarantee of the accuracy or completeness of information in this document.
[2025-01-11 08:09] LABS: Age Gdln ACOG Testing Note (.); IGP, rfx Aptima HPV ASCU Note (.)
== END 2025-01-05 19:19 | disposition home or self-care (01) ==
LOC: LAB 19:18
PROVIDERS: PCP Family Medicine; Visit Provider Physician Assistant
DX: Z01.419 Encounter for gynecological examination (general) (routine) without abnormal findings (principal)
CPT/HCPCS: 88175